=== PATIENT | male | born 1945 | race Caucasian/White ===

== ENCOUNTER 2017-04-23 10:30 | Inpatient (IN) | payer MEDICARE, OTHER, SELFPAY ==
[2017-04-23] VITALS (19 sets, daily range): BP systolic 112–138; BP diastolic 71–100; PULSE 75–118; RESP 14–22; TEMP 36.5–37.1; O2SAT 96–100; BMI 23.6; BMI 23.2; BMI 23.3
--- NOTE | 2017-04-23 10:52 | RAD_ITS ---
STUDY: X-RAY CHEST REASON FOR EXAM: Male, 71 years old. Fatigue. History of prior mitral valve replacement. TECHNIQUE: Single AP portable view of the chest. COMPARISON: None. FINDINGS: EKG electrodes are seen. The lungs are clear and expanded. There is no demonstrated pleural abnormality. Sternal cerclage wires are present from a prior sternotomy. Normal mediastinum and son. Normal visualized pulmonary arteries. Normal visualized aortic arch and descending thoracic aorta. There are degenerative changes of the visualized thoracic spine. Normal visualized ribs, clavicles, and shoulders. There is no demonstrated abnormality of the visualized soft tissue structures of the upper abdomen. RAD/Chest 1 View (Portable) IMPRESSION: Prior midline sternotomy and mitral valve replacement. Electronically Signed: Jermaine Murphy MD at 11:26 EST Tel [phone], Service support ,
--- NOTE | 2017-04-23 10:53 | EKG12_ITS ---
Test Reason : AM EKG Blood Pressure : / mmHG Vent. Rate : 088 BPM Atrial Rate : 394 BPM P-R Int : 000 ms QRS Dur : 100 ms QT Int : 368 ms P-R-T Axes : 000 098 064 degrees QTc Int : 445 ms Atrial fibrillation /flutter Septal CO, age undetermined, cannot be excluded Lateral CO, age undetermined, cannot be excluded Nonspecific ST abnormality Abnormal ECG Confirmed by TREVOR PEREZ, IAN ([id number]), editor newspaper GIGI DAS ([id number] on 05/01/2017 11:43:29 AM Referred By: Jackson Das Confirmed By:IAN MURRAY MD
[2017-04-23] MEDS: 0.9% Normal Saline 1,000 ML 150 ML IV (10:58)
[2017-04-23 11:04] LABS: Absolute Neutrophil Count 3.3 X10^3/uL (2.0-7.7); Basophil# 0.03 X10^3/uL; Basophil% 0.5 % (0-1); Eosinophil# 0.19 X10^3/uL; Eosinophils% 3.3 % (0-5); Hematocrit 45.3 % (40-54); Hemoglobin 14.9 g/dl (13.0-16.5); Lymphocyte % 32.8 % (19-41); Mean Corp Hgb Conc 32.9 g/gl (32-36); Mean Corpuscular Hgb 30.7 pg (27.0-32.0); Mean Corpuscular Volume 93.2 fL (80-94); Mean Platelet Vol. 8.8 fl (6.2-12.0); Monocyte# 0.41 X10^3/uL; Monocyte% 7.1 % (0-10); Neutrophil # 3.25 X10^3/uL (2.7-7.7); Neutrophil % 56.1 % (47-70); POSITIVE COUNT NO; POSITIVE DIFFERENTIAL NO; POSITIVE MORPHOLOGY NO; Platelet Count 242 K/mm3 (150-450); RBC Distribution Width CV 13.5 % (11.6-14.6); RBC Distribution Width SD 45.7 fl (35.1-43.9); Red Blood Count 4.86 M/mm3 (4.6-6.2); White Blood Count 5.8 K/mm3 (4.4-11.0)
[2017-04-23] MEDS: Adenosine 6 MG/2 ML Syringe IV (11:05)
[2017-04-23 11:15] LABS: International Normalized Ratio 1.1; Partial Thromboplast Time 27.7 Seconds (24.1-36.2); Prothrombin Time (Protime)PT. 13.7 SECONDS (11.7-14.9)
[2017-04-23 11:30] LABS: ALB/GLOB Ratio 1.3 RATIO (0.9-2.4); AST(SGOT) 25 U/L (15-37); Alanine Aminotransfer ALT/SGPT 43 U/L (12-78); Albumin, Serum 3.9 g/dL (3.4-5.0); Alkaline Phosphatase 109 U/L (45-117); Anion Gap 5 (5-15); BUN 15 mg/dL (7-18); BUN/Creat Ratio 18.2 RATIO (10-20); Calcium,Total 8.6 mg/dL (8.5-10.1); Chloride 107 mmol/L (98-107); Creatinine, Serum 0.82 mg/dL (0.70-1.30); EST Glomerular Filtration Rate 98 mL/min (>60); Est Glom Filt Rate - Afr Amer 119 mL/min (>60); Estimated Creatinine Clearance 82.26 ml/min; Globulin 2.9 g/dL (2.2-4.2); Glucose 115 mg/dL (70-110); Magnesium 2.2 mg/dL (1.6-2.6); Potassium 4.3 mmol/L (3.5-5.1); Protein, Total 6.8 g/dL (6.4-8.2); Sodium Level 143 mmol/L (136-145); Thyroid Stim Hormone (TSH) 1.71 uIU/mL (0.358-3.74)
[2017-04-23] MEDS: Heparin Injection 5,000 UNITS/ML Syringe 4500 UNITS IV (12:40)
[2017-04-23] MEDS: HEPARIN/D5w 25,000 UNITS 25,000 UNITS/250 ML IV.SOLN. 10 UNITS IV (12:42)
--- NOTE | 2017-04-23 12:54 | PCM.HP.STD ---
Problem List (1) History of mitral valve repair Status: Chronic (2) Dyslipidemia Status: Chronic (3) New onset atrial fibrillation Status: Acute (4) Arrhythmia, AV node Status: Chronic (5) Prostate cancer Status: Chronic Comment: On surveillance by Dr. Thomas History of Present Illness Date of Admission: 04/23/17 Chief Complaint: Fatigue with generalized weakness The patient is a 71 year old M with history of mitral valve repair; annuloplasty, hypertension, dyslipidemia and prostate cancer, very early stage on surveillance came to ER with generalized weakness, fatigue and mild shortness of breath on exertion for past 2-3 weeks. Patient saw his PCP, Dr. Das who found that patient has tachycardia on EKG and A. fib with RVR and sent to ER. Patient denies any history of A. fib but has been feeling clear sensation for last 2-3 weeks. Patient was started on verapamil about 10 years ago by [facility] employee relations representative Dr. Amberly Rouse for the reason patient is not clear but probably possible AV belinda arrhythmia. The patient baseline heart rate is 60/min. 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 Denies history of coronary artery disease, CHF or [place] in the past. He had mitral valve repair in [address] Winters in [facility]. ER physician, Dr. Mccall discussed with Dr. Borges and he advised amiodarone drip and heparin drip. [] Past Medical History Past Medical History (Chronic Problems): Chronic Problems History of mitral valve repair (Chronic) Dyslipidemia (Chronic) Arrhythmia, AV node (Chronic) Prostate cancer (Chronic) On surveillance by Dr. Thomas Allergies No Known Allergies Allergy (Verified 06/15/16 12:19) Home Medications: Ambulatory Orders Medication Instructions Recorded Aspirin [Aspirin, Baby] 81 mg PO DAILY@0800 10/06/13 Biotin [Alexi Biotin] 5,000 mcg PO DAILY 10/06/13 BuPROPion (XL) [Wellbutrin Xl] 300 mg PO DAILY 10/06/13 Fish Oil/Dha/Epa [Fish Oil 1,200 1 each PO BID 10/06/13 mg Fish Oil] Lorazepam [Ativan] 0.5 tab PO DAILY PRN PRN 10/06/13 Losartan Potassium [Losartan 50 mg PO DAILY 10/06/13 Potassium] Multivitamins,Therapeutic 1 tab PO DAILY 10/06/13 [Multivitamin] Atorvastatin Calcium [Lipitor] 40 mg PO QHS 09/21/14 verapamil ER (SR) 180 mg 180 mg PO DAILY #90 tab 03/12/17 tablet,extended release Smoking Status: Never smoker - *Family History Sibling History Items: - - His brother and sister has atrial fibrillation and had ablation. Review of Systems Constitutional: Denies: Chills, Fever, Weight Change HEENT: Denies: Head Aches, Sinus Congestion, Sinus Drainage Cardiovascular: Denies: Chest Pain, Palpitations Respiratory: Reports: Shortness of breath upon exertion. Denies: Cough, Shortness of breath at rest, Sputum production Gastrointestinal: Denies: Abdominal Pain, Nausea, Vomiting Genitourinary: Denies: Dysuria Musculoskeletal: Denies: Joint Pain, Joint Tenderness Skin: Denies: Rash, Wounds Neurological: Denies: Numbness, Tingling, Focal weakness Psychiatric: Denies: Anxiety, Depression, Homicidal Ideations, Suicidal Ideations Hematologic/ Lymphatic: Denies: Easy Bruising, Easy Bleeding VTE Information - Inpt Only VTE Present on Admission: No VTE Mechan Device Prophylaxis: None VTE Pharm Prophylaxis ordered?: Yes Reason prophylaxis not ordered:: Procedure Not Indicated - Patient is already on IV heparin drip for atrial fibrillation Patient Problems: Active and Suspected Problems New onset atrial fibrillation (Acute) - Physical Exam General: Alert, Oriented x3, Cooperative HEENT: Atraumatic, PERRLA, EOMI, Normocephalic Neck: Supple, No JVD, Negative Carotid Bruits Lungs: Clear to auscultation, Normal air movement, No rhonchi, No wheeze, No rales Cardiovascular: Normal S1, Normal S2, Irregular Rate, Murmur - Grade 2/6 systolic murmur over mitral area, Tachycardic Abdomen: Bowel Sounds Present, Soft, Non Tender, Non-Distended Extremities: No edema, Capillary Refill Less than 3 Seconds Skin: No rashes, No breakdown Musculoskeletal: No Tenderness to Palpation of Joints or Extremities, Arthritic Changes Neurological: Cranial nerves II-XII grossly intact Psych/Mental Status: Normal Affect, Appropriate Vital Signs Temp Pulse Resp BP Pulse Ox 97.8 F 118 H 18 124/91 H 99 04/23/17 10:31 04/23/17 10:31 04/23/17 10:31 04/23/17 10:31 04/23/17 10:31 Oxygen Delivery Method Room Air Weight: 155 lb Body Mass Index (BMI) 23.6 Laboratory Tests Past 24 Hrs 04/23/17 04/23/17 04/23/17 10:55 10:55 10:55 WBC 5.8 RBC 4.86 Hgb 14.9 Hct 45.3 MCV 93.2 MCH 30.7 MCHC 32.9 RDW 13.5 RDW Differential 45.7 H Plt Count 242 MPV 8.8 Immature Gran % (Auto) 0.200 Neut % (Auto) 56.1 Lymph % (Auto) 32.8 [place] % (Auto) 7.1 Eos % (Auto) 3.3 Baso % (Auto) 0.5 Absolute Neuts (auto) 3.3 Absolute Lymphs (auto) 1.90 Total Counted Not Reportable PT 13.7 INR 1.1 APTT 27.7 Sodium 143 Potassium 4.3 Chloride 107 Carbon Dioxide 31.0 Anion Gap 5 BUN 15 Creatinine 0.82 Estim Creat Clear Calc 82.26 Est GFR (MDRD) Af Amer 119 Est GFR (MDRD) Non-Af 98 BUN/Creatinine Ratio 18.2 Glucose 115 H Calcium 8.6 Magnesium 2.2 Total Bilirubin 0.70 AST 25 ALT 43 Alkaline Phosphatase 109 Troponin I < 0.02 Total Protein 6.8 Albumin 3.9 Globulin 2.9 Albumin/Globulin Ratio 1.3 TSH 1.71 Assessment/Plan Active and Suspected Problems New onset atrial fibrillation (Acute) [] The patient is a 71 year old M with history of mitral valve repair; annuloplasty, hypertension, dyslipidemia and prostate cancer, very early stage on surveillance came to ER with generalized weakness, fatigue and mild shortness of breath on exertion for past 2-3 weeks. Patient saw his PCP, Dr. Das who found that patient has tachycardia on EKG and A. fib with RVR and sent to ER. Patient denies any history of A. fib but has been feeling clear sensation for last 2-3 weeks. Patient was started on verapamil about 10 years ago by [facility] employee relations representative Dr. Amberly Rouse for the reason patient is not clear but probably possible AV belinda arrhythmia. The patient baseline heart rate is 60/min. 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 Denies history of coronary artery disease, CHF or [place] in the past. He had mitral valve repair in [address] Winters in [facility]. ER physician, Dr. Mccall discussed with Dr. Borges and he advised amiodarone drip and heparin drip. 1. New onset A. fib of unknown duration with RVR: Patient is being admitted on telemetry, PCU. Started on IV heparin drip and amiodarone drip after amiodarone 150 mg IV bolus and will continue it. Serial cardiac enzymes. TSH is normal. Echo in July 2016 shows normal LV size and systolic function, EF 60%. Normal right and left atria. Mitral valve shows focal mitral valve thickening, trivial eccentric MR with annuloplasty ring. Right ventricle reported normal. 2. 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 Continue verapamil. 3. Other chronic comorbidities include hypertension, dyslipidemia and prostate cancer, on surveillance: Home medication continued. DVT prophylaxis: Patient on heparin drip. Clinical Impression(s) from Imaging Studies Chest X-Ray 04/23/17 10:52 IMPRESSION: Prior midline sternotomy and mitral valve replacement. Laboratory Results 04/23/17 10:55: WBC 5.8, RBC 4.86, Hgb 14.9, Hct 45.3, MCV 93.2, MCH 30.7, MCHC 32.9, RDW 13.5, RDW Differential 45.7 H, Plt Count 242, MPV 8.8, Immature Gran % (Auto) 0.200, Neut % (Auto) 56.1, Lymph % (Auto) 32.8, [place] % (Auto) 7.1, Eos % (Auto) 3.3, Baso % (Auto) 0.5, Absolute Neuts (auto) 3.3, Absolute Lymphs (auto) 1.90, Total Counted Not Reportable 04/23/17 10:55: PT 13.7, INR 1.1, APTT 27.7 04/23/17 10:55: Sodium 143, Potassium 4.3, Chloride 107, Carbon Dioxide 31.0, Anion Gap 5, BUN 15, Creatinine 0.82, Estim Creat Clear Calc 82.26, Est GFR (MDRD) Af Amer 119, Est GFR (MDRD) Non-Af 98, BUN/Creatinine Ratio 18.2, Glucose 115 H, Calcium 8.6, Magnesium 2.2, Total Bilirubin 0.70, AST 25, ALT 43, Alkaline Phosphatase 109, Troponin I < 0.02, Total Protein 6.8, Albumin 3.9, Globulin 2.9, Albumin/Globulin Ratio 1.3, TSH 1.71 Code Visit Inpatient E&M: 68419 Init Hosp L2
--- NOTE | 2017-04-23 13:08 | HP.PCM_ITS ---
Problem List (1) History of mitral valve repair Status: Chronic (2) Dyslipidemia Status: Chronic (3) New onset atrial fibrillation Status: Acute (4) Arrhythmia, AV node Status: Chronic (5) Prostate cancer Status: Chronic Comment: On surveillance by Dr. Thomas History of Present Illness Date of Admission: 04/23/17 Chief Complaint: Fatigue with generalized weakness The patient is a 71 year old M with history of mitral valve repair; annuloplasty , hypertension, dyslipidemia and prostate cancer, very early stage on surveillance came to ER with generalized weakness, fatigue and mild shortness of breath on exertion for past 2-3 weeks. Patient saw his PCP, Dr. Das who found that patient has tachycardia on EKG and A. fib with RVR and sent to ER. Patient denies any history of A. fib but has been feeling clear sensation for last 2-3 weeks. Patient was started on verapamil about 10 years ago by [facility] sewer tapper Dr. Amberly Rouse for the reason patient is not clear but probably possible AV belinda arrhythmia. The patient baseline heart rate is 60/min. 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 Denies history of coronary artery disease, CHF or [place] in the past. He had mitral valve repair in [address] Winters in [facility]. ER physician, Dr. Mccall discussed with Dr. Borges and he advised amiodarone drip and heparin drip. [] Past Medical History Past Medical History (Chronic Problems): Chronic Problems History of mitral valve repair (Chronic) Dyslipidemia (Chronic) Arrhythmia, AV node (Chronic) Prostate cancer (Chronic) On surveillance by Dr. Thomas Allergies No Known Allergies Allergy (Verified 06/15/16 12:19) Home Medications: Ambulatory Orders Medication Instructions Recorded Aspirin [Aspirin, Baby] 81 mg PO DAILY@0800 10/06/13 Biotin [Alexi Biotin] 5,000 mcg PO DAILY 10/06/13 BuPROPion (XL) [Wellbutrin Xl] 300 mg PO DAILY 10/06/13 Fish Oil/Dha/Epa [Fish Oil 1,200 1 each PO BID 10/06/13 mg Fish Oil] Lorazepam [Ativan] 0.5 tab PO DAILY PRN PRN 10/06/13 Losartan Potassium [Losartan 50 mg PO DAILY 10/06/13 Potassium] Multivitamins,Therapeutic 1 tab PO DAILY 10/06/13 [Multivitamin] Atorvastatin Calcium [Lipitor] 40 mg PO QHS 09/21/14 verapamil ER (SR) 180 mg 180 mg PO DAILY #90 tab 03/12/17 tablet,extended release Smoking Status: Never smoker - *Family History Sibling History Items: - - His brother and sister has atrial fibrillation and had ablation. Review of Systems Constitutional: Denies: Chills, Fever, Weight Change HEENT: Denies: Head Aches, Sinus Congestion, Sinus Drainage Cardiovascular: Denies: Chest Pain, Palpitations Respiratory: Reports: Shortness of breath upon exertion. Denies: Cough, Shortness of breath at rest, Sputum production Gastrointestinal: Denies: Abdominal Pain, Nausea, Vomiting Genitourinary: Denies: Dysuria Musculoskeletal: Denies: Joint Pain, Joint Tenderness Skin: Denies: Rash, Wounds Neurological: Denies: Numbness, Tingling, Focal weakness Psychiatric: Denies: Anxiety, Depression, Homicidal Ideations, Suicidal Ideations Hematologic/ Lymphatic: Denies: Easy Bruising, Easy Bleeding VTE Information - Inpt Only VTE Present on Admission: No VTE Mechan Device Prophylaxis: None VTE Pharm Prophylaxis ordered?: Yes Reason prophylaxis not ordered:: Procedure Not Indicated - Patient is already on IV heparin drip for atrial fibrillation Patient Problems: Active and Suspected Problems New onset atrial fibrillation (Acute) - Physical Exam General: Alert, Oriented x3, Cooperative HEENT: Atraumatic, PERRLA, EOMI, Normocephalic Neck: Supple, No JVD, Negative Carotid Bruits Lungs: Clear to auscultation, Normal air movement, No rhonchi, No wheeze, No rales Cardiovascular: Normal S1, Normal S2, Irregular Rate, Murmur - Grade 2/6 systolic murmur over mitral area, Tachycardic Abdomen: Bowel Sounds Present, Soft, Non Tender, Non-Distended Extremities: No edema, Capillary Refill Less than 3 Seconds Skin: No rashes, No breakdown Musculoskeletal: No Tenderness to Palpation of Joints or Extremities, Arthritic Changes Neurological: Cranial nerves II-XII grossly intact Psych/Mental Status: Normal Affect, Appropriate Vital Signs Temp Pulse Resp BP Pulse Ox 97.8 F 118 H 18 124/91 H 99 04/23/17 10:31 04/23/17 10:31 04/23/17 10:31 04/23/17 10:31 04/23/17 10:31 Oxygen Delivery Method Room Air Weight: 155 lb Body Mass Index (BMI) 23.6 Laboratory Tests Past 24 Hrs 04/23/17 04/23/17 04/23/17 10:55 10:55 10:55 WBC 5.8 RBC 4.86 Hgb 14.9 Hct 45.3 MCV 93.2 MCH 30.7 MCHC 32.9 RDW 13.5 RDW Differential 45.7 H Plt Count 242 MPV 8.8 Immature Gran % (Auto) 0.200 Neut % (Auto) 56.1 Lymph % (Auto) 32.8 [place] % (Auto) 7.1 Eos % (Auto) 3.3 Baso % (Auto) 0.5 Absolute Neuts (auto) 3.3 Absolute Lymphs (auto) 1.90 Total Counted Not Reportable PT 13.7 INR 1.1 APTT 27.7 Sodium 143 Potassium 4.3 Chloride 107 Carbon Dioxide 31.0 Anion Gap 5 BUN 15 Creatinine 0.82 Estim Creat Clear Calc 82.26 Est GFR (MDRD) Af Amer 119 Est GFR (MDRD) Non-Af 98 BUN/Creatinine Ratio 18.2 Glucose 115 H Calcium 8.6 Magnesium 2.2 Total Bilirubin 0.70 AST 25 ALT 43 Alkaline Phosphatase 109 Troponin I < 0.02 Total Protein 6.8 Albumin 3.9 Globulin 2.9 Albumin/Globulin Ratio 1.3 TSH 1.71 Assessment/Plan Active and Suspected Problems New onset atrial fibrillation (Acute) [] The patient is a 71 year old M with history of mitral valve repair; annuloplasty , hypertension, dyslipidemia and prostate cancer, very early stage on surveillance came to ER with generalized weakness, fatigue and mild shortness of breath on exertion for past 2-3 weeks. Patient saw his PCP, Dr. Das who found that patient has tachycardia on EKG and A. fib with RVR and sent to ER. Patient denies any history of A. fib but has been feeling clear sensation for last 2-3 weeks. Patient was started on verapamil about 10 years ago by [facility] sewer tapper Dr. Amberly Rouse for the reason patient is not clear but probably possible AV belinda arrhythmia. The patient baseline heart rate is 60/min. 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 Denies history of coronary artery disease, CHF or [place] in the past. He had mitral valve repair in [address] Winters in [facility]. ER physician, Dr. Mccall discussed with Dr. Borges and he advised amiodarone drip and heparin drip. 1. New onset A. fib of unknown duration with RVR: Patient is being admitted on telemetry, PCU. Started on IV heparin drip and amiodarone drip after amiodarone 150 mg IV bolus and will continue it. Serial cardiac enzymes. TSH is normal. Echo in July 2016 shows normal LV size and systolic function, EF 60 %. Normal right and left atria. Mitral valve shows focal mitral valve thickening, trivial eccentric MR with annuloplasty ring. Right ventricle reported normal. 2. 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 Continue verapamil. 3. Other chronic comorbidities include hypertension, dyslipidemia and prostate cancer, on surveillance: Home medication continued. DVT prophylaxis: Patient on heparin drip. Clinical Impression(s) from Imaging Studies Chest X-Ray 04/23/17 10:52 IMPRESSION: Prior midline sternotomy and mitral valve replacement. Laboratory Results 04/23/17 10:55: WBC 5.8, RBC 4.86, Hgb 14.9, Hct 45.3, MCV 93.2, MCH 30.7, MCHC 32.9, RDW 13.5, RDW Differential 45.7 H, Plt Count 242, MPV 8.8, Immature Gran % (Auto) 0.200, Neut % (Auto) 56.1, Lymph % (Auto) 32.8, [place] % (Auto) 7.1, Eos % (Auto) 3.3, Baso % (Auto) 0.5, Absolute Neuts (auto) 3.3, Absolute Lymphs ( auto) 1.90, Total Counted Not Reportable 04/23/17 10:55: PT 13.7, INR 1.1, APTT 27.7 04/23/17 10:55: Sodium 143, Potassium 4.3, Chloride 107, Carbon Dioxide 31.0, Anion Gap 5, BUN 15, Creatinine 0.82, Estim Creat Clear Calc 82.26, Est GFR ( MDRD) Af Amer 119, Est GFR (MDRD) Non-Af 98, BUN/Creatinine Ratio 18.2, Glucose 115 H, Calcium 8.6, Magnesium 2.2, Total Bilirubin 0.70, AST 25, ALT 43, Alkaline Phosphatase 109, Troponin I < 0.02, Total Protein 6.8, Albumin 3.9, Globulin 2.9, Albumin/Globulin Ratio 1.3, TSH 1.71 Code Visit Inpatient E&M: 12026 Init Hosp L2
[2017-04-23] MEDS: 0.9% Normal Saline 1,000 ML 75 ML IV (14:49)
--- NOTE | 2017-04-23 15:27 | EKG12_ITS ---
Test Reason : Blood Pressure : / mmHG Vent. Rate : 117 BPM Atrial Rate : 117 BPM P-R Int : 222 ms QRS Dur : 090 ms QT Int : 340 ms P-R-T Axes : 000 098 125 degrees QTc Int : 474 ms Sinus tachycardia with 1st degree A-V block Lateral infarct , age undetermined Marked ST abnormality, possible inferior subendocardial injury Abnormal ECG Confirmed by JAI CAMPBELL ([id number]), loan expeditor GIGI DAS ([id number] on 04/25/2017 11:48:51 AM Referred By: Jackson Das Confirmed By:JAI CAMPBELL
--- NOTE | 2017-04-23 15:29 | PCM.CONS.C ---
Problem List (1) Atrial fibrillation and flutter Status: Acute (2) History of mitral valve repair Status: Chronic (3) CAD (coronary artery disease) Status: Chronic Qualifiers: Coronary Disease-Associated Artery/Lesion type: [place] artery [place] vs. transplanted heart: [place] heart Associated angina: without angina Qualified Code(s): I25.10 - Atherosclerotic heart disease of [place] coronary artery without angina pectoris (4) Dyslipidemia Status: Chronic (5) HTN (hypertension) Status: Chronic Reason for Consult Date of Consultation: 04/23/17 History of Present Illness: The patient is a 71 year old white male with a past cardiovascular history of underlying mitral valve disease status post mitral valve repair (remote), hyperlipidemia, and hypertension who presents for evaluation of atrial fibrillation/flutter. He states he has been feeling somewhat fatigued for the last 2-4 weeks. He has not necessarily had underlying chest discomfort suspicious for angina pectoris or respiratory related issues suspicious for CHF or pulmonary edema. There has been no near syncope or syncope. He states he seems to sense that something has been different with his heartbeat on and off. He presented for his routine primary care history and physical examination this day. He was found to be in an increased heart rate. An ECG was performed. He was noted to have what appeared to be concerns of an underlying atrial fibrillation/flutter rhythm with ventricular rates in excess of 100 bpm with poor R-wave progression and voltage criteria concerning for LVH and nonspecific ST segment change. He was advised to present to the emergency department for further evaluation. Upon further evaluation in the emergency department he was noted to have his aforementioned cardiac rate and rhythm. He did not receive a trial of adenosine 6 mg IV push ?1. This allowed his rate to slow where it was thought by the emergency department staff to be compatible with an underlying atrial flutter. He was subsequently placed on IV heparin and IV amiodarone. He was placed in the PCU for further evaluation. He states that he has not been having any orthopnea or PND or ongoing peripheral pitting edema. He has had no other acute symptoms that he is aware of. His believes that he may have obstructive sleep apnea. He states he was evaluated for this in the past and his findings were considered not definitive thus he was not treated. The present time he appears to be resting comfortably in no acute distress. [] Past Medical History Allergies/Adverse Reactions: Allergies No Known Allergies Allergy (Verified 06/15/16 12:19) Home Medications: Ambulatory Orders Medication Instructions Recorded Aspirin [Aspirin, Baby] 81 mg PO DAILY@0800 10/06/13 Biotin [Alexi Biotin] 5,000 mcg PO DAILY 10/06/13 BuPROPion (XL) [Wellbutrin Xl] 300 mg PO DAILY 10/06/13 Fish Oil/Dha/Epa [Fish Oil 1,200 1 each PO QHS 10/06/13 mg Fish Oil] Lorazepam [Ativan] 0.25 tab PO DAILY PRN PRN 10/06/13 Losartan Potassium [Losartan 25 mg PO DAILY 10/06/13 Potassium] Multivitamins,Therapeutic 1 tab PO DAILY 10/06/13 [Multivitamin] Atorvastatin Calcium [Lipitor] 40 mg PO QHS 09/21/14 verapamil ER (SR) 180 mg 180 mg PO DAILY #90 tab 03/12/17 tablet,extended release Past Medical History (Chronic Problems): Chronic Problems History of mitral valve repair (Chronic) Dyslipidemia (Chronic) Arrhythmia, AV node (Chronic) Prostate cancer (Chronic) On surveillance by Dr. 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 Lives: Spouse/ Significant Other Smoking Status: Never smoker Alcohol: None Drugs: None Review of Systems - Review of Systems General: Reports: Fatigue. Denies: Fever, Night Sweats Cardiovascular: Reports: Palpitations. Denies: Chest Discomfort, Shortness of Breath, Orthopnea, PND, Peripheral Edema, Lightheadedness, Dizziness, Near Syncope, Syncope Respiratory: Denies: Cough, Sputum Production, Hemoptysis Gastrointestinal: Denies: Hematemesis, Hematochezia, Melena Genitourinary: Denies: Dysuria, Hematuria Skin: Denies: Rash Subjectve: This is a 71-year-old white male who appears to be resting comfortably at the moment in no acute distress peer Objective: Vital Signs Temp Pulse Resp BP Pulse Ox 97.7 F L 114 H 18 120/97 H 100 04/23/17 14:30 04/23/17 14:58 04/23/17 14:30 04/23/17 14:30 04/23/17 14:30 Oxygen Delivery Method Room Air Weight: 153 lb 0.013 oz Body Mass Index (BMI) 23.2 General: Awake, Alert, Oriented x 3, Cooperative, No Acute Distress Neck: No JVD Lungs: Clear to auscultation Cardiovascular: Regular Rhythm, Normal S1, Normal S2 Vascular: No Carotid Bruits Abdomen: Bowel Sounds Present, Soft, Non Tender Extremities: No Cyanosis, No Clubbing, No edema Neurological: No Focal Motor or Sensory Deficit Rhythm: Atrial flutter EKG: Atrial flutter; lateral MN, age undetermined, cannot be excluded; nonspecific ST segment abnormality ECHO: 07/31/2016: Left ventricle: Normal with an LVEF of 60%; mitral valve with a stable annuloplasty ring with mild focal mitral valve thickening with trivial MR; mild TR Stress Test: 06/16/2008: Exercise tolerance test/nuclear imaging study: Findings suspicious for diaphragmatic attenuation and negative for stress-induced myocardial ischemia Cardiac Cath: 06/23/2008: Left ventricle normal with an LVEF 55%; LAD with proximal 10% stenosis; first diagonal branch with ostial 20-30% stenosis; LCx appears angiographically normal; RCA with proximal 10-20% stenosis; right AV groove with proximal 10-20% stenosis; right posterior lateral branch with ostial 10-20% stenosis; mitral valve with a normal-appearing mitral annuloplasty ring with trivial MR CT Surgery: 10/04/2000: [facility]: Mitral valve repair with quadrangular resection of the middle scallop of the posterior leaflet with plication internal oblique fascia of the annulus posteriorly and a 34 mm Singh Turner ring annuloplasty CXR: Preliminary evaluation: post open heart surgery changes; no acute cardiopulmonary disease appreciated; please see official report Assessment/Plan 1. Atrial flutter The patient presents with findings concerning for atrial fibrillation/flutter. At the moment he appears to be predominantly in flutter. The etiology is uncertain although it may be multifactorial. This may be related to a combination of his age, previous cardiovascular history with underlying mitral valve regurgitation and mitral valve repair, as well as consideration for noncardiovascular issues such as the possibility of obstructive sleep apnea, etc. At the present time he is being monitored. His initial cardiac enzymes are negative. His ECG has not demonstrated any acute ECG changes. He is being treated medically. This has included a combination of rate control with his underlying calcium channel antagonist, and attempt at rhythm control with IV amiodarone, and anticoagulation with IV heparin. If he does not have conversion to sinus rhythm then he may need to be considered for YURIDIA guided synchronized biphasic DC cardioversion. 2. Myxomatous mitral valve disease with mitral valve irritation status post mitral valve repair-2000 At the present time the patient appears to be stable with respect to his underlying mitral valve disease process based upon his examination and his most recent transthoracic echocardiogram. This can be reassessed as needed. He will need to continue [employer] antibiotic prophylaxis as deemed appropriate. 3. CAD The patient does have a history of CAD as noted above. Thus far he has had no acute symptoms. His initial cardiac enzymes are negative. His ECG is demonstrated no acute ECG changes. He will continue evaluation care as noted above. 4. Hyperlipidemia He can continue medical management and laboratory evaluation as needed. 5. Hypertension His blood pressures will be followed. His medications can be adjusted as needed. Comment: The above was discussed with the patient, his family members present, and the [facility] emergency department staff. This note was generated with [employer] dictation software. It may contain incorrect words, spelling, and punctuation that were not noted in checking the note before signing.
--- NOTE | 2017-04-23 15:35 | ED.VISSUMM ---
- ER Visit Summary Date of Service: 04/23/17 Chief Complaint: Fatigue and abnormal EKG History of Present Illness: The patient is a 71 M who states that for the past couple months he has had fatigue. He states it is not profound fatigue but he has noticed that it has been taking him longer to do normal tasks. 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 He notes that several years ago he had a mitral valve repair at [facility]. Since that time he has been following with Dr. Nelson. He states that he has had heart catheterization in the past and that those were negative. He went to see his primary care physician today who noted an abnormal EKG. Is concerning for atrial fibrillation with a rapid ventricular response. Patient denies any weight loss. He denies any muscle cramping. He is currently taking verapamil and losartan. Physical Examination: Afebrile heart rate 118 blood pressure 124/91 Gen: Well-nourished well-developed Head: Normocephalic atraumatic Eyes: Perrl EOMI ENT: TMs clear no rhinorrhea moist mucous membranes Neck: Supple no lymphadenopathy no JVD nontender CVS: Cardiac regular rate rhythm no murmurs normal S1-S2 Respiratory: No distress clear to auscultation bilaterally chest nontender Abdomen: Soft nontender nondistended normal bowel sounds no masses Back: Nontender Extremity: Nontender no edema Skin: Normal color no rash Neuro: alert orientated ?3 CN II-XII intact normal strength sensation reflexes gait cerebellar Psych: Normal affect normal mood Test Results: EKG shows a narrow complex tachycardia at a rate of 117. Basic blood work including TSH and magnesium negative. Troponin negative. Chest x-ray no acute. Emergency Department Course and Treatment: Patient received a 6 mg dose of adenosine which brought out flutter waves. Case was discussed with Dr. Borges. Patient was placed on a heparin drip as well as amiodarone bolus and drip. Her plan is admission into the hospital. Impression: 1. New onset atrial flutter This note was generated with [employer] dictation software. It may contain incorrect words, spelling, and punctuation that were not noted in review of the chart prior to signing ED Disposition - Plan for ED Patient: Disposition: Acute Care Hospital [facility] Chief Complaint: General Illness
--- NOTE | 2017-04-23 15:39 | ED.DCSUM_ITS ---
- ER Visit Summary Date of Service: 04/23/17 Chief Complaint: Fatigue and abnormal EKG History of Present Illness: The patient is a 71 M who states that for the past couple months he has had fatigue. He states it is not profound fatigue but he has noticed that it has been taking him longer to do normal tasks. 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 He notes that several years ago he had a mitral valve repair at [facility]. Since that time he has been following with Dr. Nelson. He states that he has had heart catheterization in the past and that those were negative. He went to see his primary care physician today who noted an abnormal EKG. Is concerning for atrial fibrillation with a rapid ventricular response. Patient denies any weight loss. He denies any muscle cramping. He is currently taking verapamil and losartan. Physical Examination: Afebrile heart rate 118 blood pressure 124/91 Gen: Well-nourished well-developed Head: Normocephalic atraumatic Eyes: Perrl EOMI ENT: TMs clear no rhinorrhea moist mucous membranes Neck: Supple no lymphadenopathy no JVD nontender CVS: Cardiac regular rate rhythm no murmurs normal S1-S2 Respiratory: No distress clear to auscultation bilaterally chest nontender Abdomen: Soft nontender nondistended normal bowel sounds no masses Back: Nontender Extremity: Nontender no edema Skin: Normal color no rash Neuro: alert orientated ?3 CN II-XII intact normal strength sensation reflexes gait cerebellar Psych: Normal affect normal mood Test Results: EKG shows a narrow complex tachycardia at a rate of 117. Basic blood work including TSH and magnesium negative. Troponin negative. Chest x- ray no acute. Emergency Department Course and Treatment: Patient received a 6 mg dose of adenosine which brought out flutter waves. Case was discussed with Dr. Borges. Patient was placed on a heparin drip as well as amiodarone bolus and drip. Her plan is admission into the hospital. Impression: 1. New onset atrial flutter This note was generated with [employer] dictation software. It may contain incorrect words, spelling, and punctuation that were not noted in review of the chart prior to signing ED Disposition - Plan for ED Patient: Disposition: Acute Care Hospital [facility] Chief Complaint: General Illness
[2017-04-23] MEDS: Digoxin 250 MCG/ML Ampul 500 MCG IV (16:24)
[2017-04-23 18:59] LABS: Partial Thromboplast Time 86.5 Seconds (24.1-36.2)
[2017-04-23] MEDS: Atorvastatin Calcium 40 MG Tablet PO (21:03)
[2017-04-24] VITALS (21 sets, daily range): BP systolic 95–141; BP diastolic 45–104; PULSE 39–111; RESP 14–19; TEMP 36.9–37.2; O2SAT 95–100; BMI 23.2
[2017-04-24 01:29] LABS: Partial Thromboplast Time 61.5 Seconds (24.1-36.2)
[2017-04-24] MEDS: 0.9% Normal Saline 1,000 ML 75 ML IV ×2 (03:59→16:54)
--- NOTE | 2017-04-24 05:55 | EKG12_ITS ---
Test Reason : POST CARDIOVERSION Blood Pressure : / mmHG Vent. Rate : 050 BPM Atrial Rate : 050 BPM P-R Int : 188 ms QRS Dur : 104 ms QT Int : 454 ms P-R-T Axes : 020 097 086 degrees QTc Int : 413 ms Sinus bradycardia with Premature atrial complexes Poor R wave progression Anteroseptal AL, age undetermined, cannot be excluded Lateral AL, age undetermined, cannot be excluded Confirmed by TREVOR PEREZ, IAN ([id number]), senior technical editor GIGI DAS ([id number] on 05/01/2017 11:34:32 AM Referred By: Jackson Das Confirmed By:IAN MURRAY MD
[2017-04-24 07:17] LABS: Absolute Lymphocyte Count 1.78 X10^3/ul (0.83-4.51); Absolute Neutrophil Count 5.1 X10^3/uL (2.0-7.7); Basophil# 0.03 X10^3/uL; Basophil% 0.4 % (0-1); Eosinophil# 0.22 X10^3/uL; Eosinophils% 2.9 % (0-5); Hemoglobin 13.5 g/dl (13.0-16.5); Lymphocyte # 1.78 X10^3/ul (4.0); Lymphocyte % 23.9 % (19-41); Mean Corp Hgb Conc 32.9 g/gl (32-36); Mean Corpuscular Hgb 30.6 pg (27.0-32.0); Mean Platelet Vol. 8.8 fl (6.2-12.0); Monocyte# 0.32 X10^3/uL; Monocyte% 4.3 % (0-10); Neutrophil % 68.4 % (47-70); Platelet Count 194 K/mm3 (150-450); RBC Distribution Width CV 13.3 % (11.6-14.6); RBC Distribution Width SD 45.5 fl (35.1-43.9); Red Blood Count 4.41 M/mm3 (4.6-6.2); White Blood Count 7.5 K/mm3 (4.4-11.0)
[2017-04-24 07:20] LABS: POSITIVE COUNT NO; POSITIVE DIFFERENTIAL NO; POSITIVE MORPHOLOGY NO
[2017-04-24 07:58] LABS: Partial Thromboplast Time 63.5 Seconds (24.1-36.2)
[2017-04-24 08:11] LABS: Cholesterol 100 mg/dL (200); High Density Lipoprotein 50 mg/dL; Triglycerides 53 mg/dL; Very Low Density Lipoprotein 11 mg/dL (5-40)
[2017-04-24] MEDS: Multivitamins,Therapeutic Tablet 1 TABLET PO (09:49)
[2017-04-24] MEDS: Losartan Potassium 50 MG Tablet PO (09:49)
[2017-04-24] MEDS: Aspirin 81 MG TAB.CHEW PO (09:49)
--- NOTE | 2017-04-24 09:53 | PCM.OP.BLANK ---
Operative Report Date of Procedure: 04/24/17 CONSCIOUS SEDATION REPORT DATE OF SERVICE: April 24, 2017 BRIEF HISTORY OF PRESENT ILLNESS: The patient is a 71-year-old male who initially presented to the hospital on April 23 with fatigue and generalized weakness. He was subsequently found to be in atrial flutter. He was seen by cardiology in consultation. A YURIDIA was performed on the morning of April 24 which revealed mild global LV systolic dysfunction with an ejection fraction of 45%. No thrombus was identified. The patient is currently anticoagulated on heparin. He denies a prior history of COPD or asthma. He does report having previously been evaluated by Dr. Frost for what sounds like position dependent sleep disordered breathing. However, he is not currently on any form of nocturnal PAP therapy. The patient denies any previous anesthetic complications. PHYSICAL EXAMINATION: VITAL SIGNS: Reviewed and were acceptable. GENERAL: The patient is a male, in no apparent distress, speaking in full sentences. HEENT: Normocephalic, atraumatic. Mucous membranes are moist and pink. Good mouth opening noted. Trachea is midline. Good neck mobility. CHEST: S1, S2 irregularly irregular. No murmurs, rubs or gallops were noted. LUNGS: Clear to auscultation bilaterally without appreciable wheezes, rales or rhonchi. ABDOMEN: Soft, nontender, nondistended. Positive bowel sounds. EXTREMITIES: There is no clubbing, cyanosis or edema. ASA Class: II DESCRIPTION OF PROCEDURE: After confirmation of informed consent, the patient's anesthesia plan was reviewed in detail. Propofol was chosen. Risks and benefits were reviewed and the patient agreed to proceed. At 0932, the patient was given 40 mg of propofol. Due to an inadequate level of sedation, the patient was given an additional 10 mg of propofol. In total, he received 50 mg of propofol for the procedure. After he achieved an appropriate level of sedation, he was given a 50 joule synchronized cardioversion by Dr. Borges at the bedside. This was successful in achieving normal sinus rhythm. The patient was monitored until 12 13, at which time he reached his baseline mental status and function. The patient tolerated the procedure well. COMPLICATIONS: None ESTIMATED BLOOD LOSS: None RECOMMENDATIONS: Okay to recover in usual fashion.
[2017-04-24] MEDS: Verapamil SR 180 MG CAPSULE PO (09:54)
--- NOTE | 2017-04-24 10:26 | EKG12_ITS ---
Test Reason : PRE CARDIOVERSION Blood Pressure : / mmHG Vent. Rate : 104 BPM Atrial Rate : 227 BPM P-R Int : 000 ms QRS Dur : 100 ms QT Int : 376 ms P-R-T Axes : 236 093 005 degrees QTc Int : 494 ms Atrial flutter with variable A-V block Nonspecific ST and T wave abnormality Abnormal ECG Confirmed by TREVOR PEREZ, IAN ([id number]), film or videotape editor GIGI DAS ([id number] on 05/01/2017 11:44:27 AM Referred By: Jackson Das Confirmed By:IAN MURRAY MD
--- NOTE | 2017-04-24 10:43 | OP.PCM_ITS ---
Problem List (1) Atrial fibrillation and flutter Status: Acute (2) History of mitral valve repair Status: Chronic (3) CAD (coronary artery disease) Status: Chronic Qualifiers: Coronary Disease-Associated Artery/Lesion type: [place] artery [place] vs. transplanted heart: [place] heart Associated angina: without angina Qualified Code(s): I25.10 - Atherosclerotic heart disease of [place] coronary artery without angina pectoris (4) Dyslipidemia Status: Chronic (5) HTN (hypertension) Status: Chronic Operative Report Date of Procedure: 04/24/17 Date: 04/24/2017 Procedure: Synchronized biphasic DC cardioversion Indications: Atrial flutter Consent: Per patient Premedications: Per Dr. Romero of pulmonology and critical care medicine: Propofol: 50 mg IV push total Procedure: Synchronized biphasic DC cardioversion: 50 J ?1: Result: Sinus rhythm Complications: No apparent complications This note was generated with [employer] software. It may contain incorrect words, spelling, and punctuation that were not noted in checking the note before signing.
--- NOTE | 2017-04-24 10:50 | PN.CARD_ITS ---
Subjectve: The patient is now status post YURIDIA guided synchronized biphasic DC cardioversion. He has returned to sinus rhythm. He appears to be without acute complaint or complication. Objective: Vital Signs Temp Pulse Resp BP Pulse Ox 98.5 F 56 L 15 105/72 98 04/24/17 10:00 04/24/17 10:00 04/24/17 10:00 04/24/17 10:00 04/24/17 10:00 Oxygen Delivery Method Room Air Weight: 153 lb 0.013 oz Body Mass Index (BMI) 23.2 Intake and Output for Last 24 Hours 04/22/17 04/23/17 04/24/17 23:59 23:59 23:59 Intake Total 904 / 904 1205 / 1205 Output Total 1300 / 1300 1150 / 1150 Balance -396 / -396 55 / 55 General: Awake, Alert, Oriented x 3, Cooperative, No Acute Distress Neck: No JVD Chest Wall: Midline Sternotomy Incision Lungs: Clear to auscultation Cardiovascular: Regular Rhythm, Normal S1, Normal S2 Abdomen: Bowel Sounds Present, Soft, Non Tender Extremities: No edema Neurological: No Focal Motor or Sensory Deficit 04/23/17 15:10: Troponin I < 0.02 04/23/17 18:34: Troponin I < 0.02 04/23/17 18:34: APTT 86.5 H 04/24/17 00:56: Troponin I < 0.02 04/24/17 00:56: APTT 61.5 H 04/24/17 07:00: WBC 7.5, RBC 4.41 L, Hgb 13.5, Hct 41.0, MCV 93.0, MCH 30.6, MCHC 32.9, RDW 13.3, RDW Differential 45.5 H, Plt Count 194, MPV 8.8, Immature Gran % (Auto) 0.100, Neut % (Auto) 68.4, Lymph % (Auto) 23.9, [place] % (Auto) 4.3 , Eos % (Auto) 2.9, Baso % (Auto) 0.4, Absolute Neuts (auto) 5.1, Total Counted Not Reportable 04/24/17 07:00: Triglycerides 53, Cholesterol 100, LDL Cholesterol 39, VLDL Cholesterol 11, HDL Cholesterol 50 04/24/17 07:00: APTT 63.5 H Rhythm: Sinus rhythm YURIDIA: Left ventricle: Mild global left ventricular systolic dysfunction; estimated LVEF of 45%; mild left atrial enlargement; no obvious left atrial appendage thrombus identified; stable appearing mitral valve annuloplasty ring with trivial transvalvular MR; mild TR; negative agitated saline contrast study for interatrial shunt; please see official report Assessment/Plan 1. Atrial flutter The patient presents with findings concerning for atrial fibrillation/flutter. He has undergone evaluation with cardiac enzymes which have been negative. His ECG demonstrated no new acute changes. He has undergone evaluation with transesophageal echocardiogram as noted above. His left ventricular systolic dysfunction was mildly depressed (in the setting of his atrial flutter). He is now status post YURIDIA guided synchronized biphasic DC cardioversion. At the present time he will continue to be monitored. He will continue medical therapy. His medications will be adjusted. This will include altering his calcium channel antagonist to a beta-michell. He will also be placed on antiarrhythmic therapy with amiodarone. He will continue with anticoagulant therapy was transitioned from IV heparin to a novel oral anticoagulant agent. He will need continued future follow-up of his underlying rate and rhythm. He may need to be considered for EP evaluation for possible EPS/RFA. Also, he will need future follow-up of his underlying left ventricular wall motion and systolic function. Hopefully this will improve with return to sinus rhythm. 2. 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 He has trivial transvalvular MR. He will continue AHA antibiotic prophylaxis as deemed appropriate. 3. CAD The patient does have a history of CAD as noted above. Thus far he has had no acute symptoms. His initial cardiac enzymes are negative. His ECG is demonstrated no acute ECG changes. He will continue evaluation care as noted above. 4. Hyperlipidemia He can continue medical management and laboratory evaluation as needed. 5. Hypertension His blood pressures will be followed. His medications can be adjusted as needed. Also, there is a concern as to whether or not he truly does have obstructive sleep apnea which could contribute to his atrial dysrhythmia and his hypertension. This was discussed with Dr. Romero of pulmonology and critical care medicine who participated in his DC cardioversion procedure. He is willing to evaluate the patient in the future with respect to this concern. Comment: The above was discussed with the patient and his family members present. This note was generated with [employer] software. It may contain incorrect words, spelling, and punctuation that were not noted in checking the note before signing.
[2017-04-24 13:18] LABS: Partial Thromboplast Time 67.2 Seconds (24.1-36.2)
[2017-04-24] MEDS: HEPARIN/D5w 25,000 UNITS 25,000 UNITS/250 ML IV.SOLN. 9 UNITS IV (14:05)
--- NOTE | 2017-04-24 14:13 | PCM.PN.HOSP ---
Patient Problems: Active and Suspected Problems New onset atrial fibrillation (Acute) Atrial fibrillation and flutter (Acute) Subjective: Patient had YURIDIA today and after that synchronized biphasic DC cardioversion. Patient was cardioverted 50 J and converted to normal sinus rhythm. Vitals/I&O's: Vital Signs Temp Pulse Resp BP Pulse Ox 98.5 F 58 L 15 105/72 98 04/24/17 10:00 04/24/17 11:09 04/24/17 10:00 04/24/17 10:00 04/24/17 11:30 Oxygen Delivery Method Room Air Weight: 153 lb 0.013 oz Body Mass Index (BMI) 23.2 Intake and Output for Last 24 Hours 04/22/17 04/23/17 04/24/17 23:59 23:59 23:59 Intake Total 904 / 904 1804 / 1804 Output Total 1300 / 1300 2175 / 2175 Balance -396 / -396 -371 / -371 General: Alert, Oriented x3, Cooperative HEENT: Atraumatic, PERRLA, EOMI, Normocephalic Neck: Supple, No JVD, Negative Carotid Bruits Lungs: Clear to auscultation, Normal air movement, No rhonchi, No wheeze, No rales Cardiovascular: Regular rate, Regular Rhythm, Normal S1, Normal S2, Murmur - Grade 2/6 systolic murmur over mitral area. Abdomen: Bowel Sounds Present, Soft, Non Tender, Non-Distended Extremities: No edema, Capillary Refill Less than 3 Seconds Skin: No rashes, No breakdown Musculoskeletal: No Tenderness to Palpation of Joints or Extremities Neurological: Cranial nerves II-XII grossly intact Psych/Mental Status: Normal Affect, Appropriate Laboratory Results 04/23/17 15:10: Troponin I < 0.02 04/23/17 18:34: Troponin I < 0.02 04/23/17 18:34: APTT 86.5 H 04/24/17 00:56: Troponin I < 0.02 04/24/17 00:56: APTT 61.5 H 04/24/17 07:00: WBC 7.5, RBC 4.41 L, Hgb 13.5, Hct 41.0, MCV 93.0, MCH 30.6, MCHC 32.9, RDW 13.3, RDW Differential 45.5 H, Plt Count 194, MPV 8.8, Immature Gran % (Auto) 0.100, Neut % (Auto) 68.4, Lymph % (Auto) 23.9, Pratt % (Auto) 4.3, Eos % (Auto) 2.9, Baso % (Auto) 0.4, Absolute Neuts (auto) 5.1, Absolute Lymphs (auto) 1.78, Total Counted Not Reportable 04/24/17 07:00: Triglycerides 53, Cholesterol 100, LDL Cholesterol 39, VLDL Cholesterol 11, HDL Cholesterol 50 04/24/17 07:00: APTT 63.5 H 04/24/17 13:00: APTT 67.2 H Current Medications Acetaminophen (Tylenol) 650 mg PO Q6H PRN PRN PRN Reason: Mild Pain (scale 0-3)/T>100.7 Al Hydroxide/Mg Hydroxide (Mylanta Ii) 30 ml PO Q6H PRN PRN PRN Reason: Gastric Burning Amiodarone HCl (Cordarone) 200 mg PO BID [facility] Apixaban (Eliquis) 5 mg PO BID [facility] Aspirin (Aspirin, Baby) 81 mg PO DAILY@0800 [facility] Last Admin: 04/24/17 09:49 Dose: 81 mg Atorvastatin Calcium (Lipitor) 40 mg PO QHS [facility] Last Admin: 04/23/17 21:03 Dose: 40 mg Bisacodyl (Dulcolax) 10 mg RECTAL DAILY PRN PRN PRN Reason: Constipation Bupropion HCl (Wellbutrin Xl) 300 mg PO DAILY [facility] Last Admin: 04/24/17 09:49 Dose: 300 mg Docusate Sodium (Colace) 200 mg PO BID PRN PRN PRN Reason: Constipation Heparin Sodium (Porcine) () 0 units IV UD PRN PRN Reason: Protocol Stop: 04/24/17 22:00 Sodium Chloride () 1,000 mls @ 75 mls/hr IV .[id number] [facility] Last Admin: 04/24/17 03:59 Dose: 75 mls/hr Sodium Chloride () 500 mls @ 15 mls/hr IV .[id number] [facility] PRN Reason: KVO Last Admin: 04/23/17 17:24 Dose: Not Given Sodium Chloride () 1,000 mls @ 15 mls/hr IV .Q48H [facility] PRN Reason: KVO Last Admin: 04/24/17 08:24 Dose: Not Given Heparin Sodium/Dextrose () 25,000 units in 250 mls @ 10 mls/hr IV .Q25H [facility]; As Directed PRN Reason: Protocol Stop: 04/24/17 22:00 Last Admin: 04/24/17 14:05 Dose: 9 mls/hr Lorazepam (Ativan) 0.25 mg PO DAILY PRN PRN PRN Reason: ANXIETY Losartan Potassium (Cozaar) 50 mg PO DAILY [facility] Last Admin: 04/24/17 09:49 Dose: 50 mg Metoprolol Tartrate (Lopressor (Beta Gideon)) 25 mg PO BID [facility] Multivitamins (Multivitamin) 1 tablet PO DAILYCM [facility] Last Admin: 04/24/17 09:49 Dose: 1 tablet Ondansetron HCl (Zofran) 4 mg IV Q8H PRN PRN PRN Reason: Nausea Oxycodone HCl (Oxyir) 5 mg PO Q4H PRN PRN PRN Reason: Moderate Pain (pain scale 4-5) Sodium Chloride () 5 - 30 ml IV UD PRN PRN Reason: SALINE FLUSH Assessment/Plan Active and Suspected Problems New onset atrial fibrillation (Acute) Atrial fibrillation and flutter (Acute) [] The patient is a 71 year old M with history of mitral valve repair; annuloplasty, hypertension, dyslipidemia and prostate cancer, very early stage on surveillance came to ER with generalized weakness, fatigue and mild shortness of breath on exertion for past 2-3 weeks. Patient saw his PCP, Dr. Das who found that patient has tachycardia on EKG and A. fib with RVR and sent to ER. Patient denies any history of A. fib but has been feeling clear sensation for last 2-3 weeks. Patient was started on verapamil about 10 years ago by [facility] osteopathic physician Dr. Amberly Rouse for the reason patient is not clear but probably possible AV belinda arrhythmia. The patient baseline heart rate is 60/min. 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 Denies history of coronary artery disease, CHF or [place] in the past. He had mitral valve repair in [address] Winters in [facility]. ER physician, Dr. Mccall discussed with Dr. Borges and he advised amiodarone drip and heparin drip. 1. New onset A. fib of unknown duration with RVR: Patient is being admitted on telemetry, PCU. Initially, started on IV heparin drip and amiodarone drip after amiodarone 150 mg IV bolus and will continue it. Serial cardiac enzymes are negative. TSH is normal. Echo in July 2016 shows normal LV size and systolic function, EF 60%. Normal right and left atria. Mitral valve shows focal mitral valve thickening, trivial eccentric MR with annuloplasty ring. Right ventricle reported normal. Patient had YURIDIA on 04/24/2017 and reported as left ventricular systolic function mildly depressed, EF 45%, mild LA enlargement, no obvious left atrial appendage thrombus. Mitral valve annuloplasty cream stable with trivial transvalvular MR. Mild TR. It was negative agitated saline test for interatrial shunt. Patient was cardioverted today. Currently in normal sinus rhythm. Currently on amiodarone drip. On oral anticoagulant agent, apixaban 5 mg p.o. twice daily. DC IV heparin drip. 2. 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 Continue verapamil. 3. Other chronic comorbidities include hypertension, dyslipidemia and prostate cancer, on surveillance: Home medication continued. DVT prophylaxis: Patient on heparin drip. Clinical Impression(s) from Imaging Studies Chest X-Ray 04/23/17 10:52 IMPRESSION: Prior midline sternotomy and mitral valve replacement. Laboratory Results 04/23/17 18:34: Troponin I < 0.02 04/23/17 18:34: APTT 86.5 H 04/24/17 00:56: Troponin I < 0.02 04/24/17 00:56: APTT 61.5 H 04/24/17 07:00: WBC 7.5, RBC 4.41 L, Hgb 13.5, Hct 41.0, MCV 93.0, MCH 30.6, MCHC 32.9, RDW 13.3, RDW Differential 45.5 H, Plt Count 194, MPV 8.8, Immature Gran % (Auto) 0.100, Neut % (Auto) 68.4, Lymph % (Auto) 23.9, Pratt % (Auto) 4.3, Eos % (Auto) 2.9, Baso % (Auto) 0.4, Absolute Neuts (auto) 5.1, Absolute Lymphs (auto) 1.78, Total Counted Not Reportable 04/24/17 07:00: Triglycerides 53, Cholesterol 100, LDL Cholesterol 39, VLDL Cholesterol 11, HDL Cholesterol 50 04/24/17 07:00: APTT 63.5 H 04/24/17 13:00: APTT 67.2 H Code Visit Inpatient E&M: 87291 Subs Hosp L2
--- NOTE | 2017-04-24 14:56 | CHAPLAIN ---
Type of Pastoral Visit _x__ Initial Visit ___ Follow-up Visit ___ On-call Visit ___ General Patient Visit ___ Spiritual Assessment ___ Family Conference ___ Bereavement ___ Rapid Response ___ Code Blue ___ Other (describe below) Pastoral Care Referral From ___ Patient _x__ Family ___ Nurse ___ Physician ___ Youth Corrections Officer ___ Feed Crusher ___ Other (describe below) Sacrament/Intervention _x__ Active listening ___ Anointing ___ Latter-Day ___ Bereavement ___ Communion ___ Renuka exploration ___ _x__ Life review _x__ Prayer ___ Reconciliation ___ Sacrament of Sick _x__ Supportive presence ___ Wedding ___ Other (describe below) Pastoral Comments 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
--- NOTE | 2017-04-24 14:59 | CASEMGMT ---
Face to Face with patient for initial transition planning/care coordination assessment. RN KEM introduced self and role at [facility], pt voices understanding and consents to assessment at this time. Pt sitting up in bed in no distress at this time. Pt A/O x4 at this time and answers all questions appropriately at this time. Care providers, pharmacy, and demographics verified. See attached link. Pt voices no further concerns/needs at this time. Advised pt to ask for CM if any further questions/concerns/needs arise, voice understanding. CM to follow for possible Eliquis script at discharge. PLAN: Home [place] [facility]
[2017-04-24] MEDS: Acetaminophen 325 MG Tablet 650 MG PO (18:47)
[2017-04-24] MEDS: APIXABAN 5 MG TABLET PO (21:07)
[2017-04-24] MEDS: Atorvastatin Calcium 40 MG Tablet PO (21:07)
[2017-04-24] MEDS: Ondansetron 4 MG/2 ML Vial IV (21:16)
[2017-04-24] MEDS: 0.9% NaCl Peripheral Flush Adult/Peds IV (21:16)
[2017-04-25] VITALS (12 sets, daily range): BP systolic 103–128; BP diastolic 61–73; PULSE 36–56; RESP 16; TEMP 36.6–37; O2SAT 96–98
[2017-04-25] MEDS: Acetaminophen 325 MG Tablet 650 MG PO ×2 (00:59→07:57)
[2017-04-25] MEDS: 0.9% Normal Saline 1,000 ML 75 ML IV ×2 (06:22→18:40)
[2017-04-25 06:44] LABS: Absolute Lymphocyte Count 1.52 X10^3/ul (0.83-4.51); Absolute Neutrophil Count 4.1 X10^3/uL (2.0-7.7); Basophil# 0.03 X10^3/uL; Basophil% 0.5 % (0-1); Eosinophil# 0.16 X10^3/uL; Eosinophils% 2.6 % (0-5); Hematocrit 39.4 % (40-54); Hemoglobin 12.8 g/dl (13.0-16.5); Lymphocyte # 1.52 X10^3/ul (4.0); Lymphocyte % 24.5 % (19-41); Mean Corp Hgb Conc 32.5 g/gl (32-36); Mean Corpuscular Hgb 30.4 pg (27.0-32.0); Mean Corpuscular Volume 93.6 fL (80-94); Mean Platelet Vol. 9.1 fl (6.2-12.0); Monocyte# 0.38 X10^3/uL; Monocyte% 6.1 % (0-10); Neutrophil % 66.1 % (47-70); Platelet Count 208 K/mm3 (150-450); RBC Distribution Width CV 13.7 % (11.6-14.6); RBC Distribution Width SD 46.4 fl (35.1-43.9); Red Blood Count 4.21 M/mm3 (4.6-6.2); White Blood Count 6.2 K/mm3 (4.4-11.0)
[2017-04-25 06:54] LABS: Anion Gap 5 (5-15); BUN 13 mg/dL (7-18); BUN/Creat Ratio 18.8 RATIO (10-20); Calcium,Total 8.1 mg/dL (8.5-10.1); Chloride 109 mmol/L (98-107); Creatinine, Serum 0.69 mg/dL (0.70-1.30); EST Glomerular Filtration Rate 120 mL/min (>60); Est Glom Filt Rate - Afr Amer 145 mL/min (>60); Estimated Creatinine Clearance 67.45 ml/min; Glucose 127 mg/dL (70-110); Potassium 4.3 mmol/L (3.5-5.1); Sodium Level 141 mmol/L (136-145)
[2017-04-25 07:03] LABS: POSITIVE COUNT NO; POSITIVE DIFFERENTIAL NO; POSITIVE MORPHOLOGY NO
[2017-04-25] MEDS: Aspirin 81 MG TAB.CHEW PO (07:57)
[2017-04-25] MEDS: Multivitamins,Therapeutic Tablet 1 TABLET PO (07:57)
[2017-04-25] MEDS: Metoprolol Tartrate 25 MG Tablet 12.5 MG PO (09:00)
[2017-04-25] MEDS: APIXABAN 5 MG TABLET PO ×2 (09:00→21:11)
[2017-04-25] MEDS: Losartan Potassium 50 MG Tablet PO (09:00)
--- NOTE | 2017-04-25 13:55 | EKG12_ITS ---
Test Reason : REPEAT Blood Pressure : / mmHG Vent. Rate : 043 BPM Atrial Rate : 043 BPM P-R Int : 182 ms QRS Dur : 092 ms QT Int : 504 ms P-R-T Axes : 059 092 091 degrees QTc Int : 425 ms Marked sinus bradycardia with sinus arrhythmia Septal infarct , age undetermined , cannot be excluded Abnormal ECG Confirmed by TREVOR PEREZ, IAN ([id number]), associate editor GIGI DAS ([id number] on 05/01/2017 11:20:41 AM Referred By: Jackson Das Confirmed By:IAN MURRAY MD
--- NOTE | 2017-04-25 15:21 | PCM.PN.HOSP ---
Patient Problems: Active and Suspected Problems New onset atrial fibrillation (Acute) Atrial fibrillation and flutter (Acute) Subjective: Seen and examined. Patient has bradycardia episode in the morning today. Her heart rate was in 110s yesterday morning and then dropped to 48 to low 35/min and the automated manufacturing instructor. Patient is intermittent sinus rhythm with junctional rhythm Vitals/I&O's: Vital Signs Temp Pulse Resp BP Pulse Ox 98.3 F 45 L 16 103/61 98 04/25/17 15:00 04/25/17 15:00 04/25/17 15:00 04/25/17 15:00 04/25/17 15:00 Oxygen Delivery Method Room Air Weight: 153 lb 0.013 oz Body Mass Index (BMI) 23.2 Intake and Output for Last 24 Hours 04/23/17 04/24/17 04/25/17 23:59 23:59 23:59 Intake Total 904 / 904 2597.8 / 2597.8 2168 / 2168 Output Total 1300 / 1300 2700 / 2700 1075 / 1075 Balance -396 / -396 -102.2 / -102.2 1093 / 1093 General: Alert, Oriented x3, Cooperative HEENT: Atraumatic, PERRLA, EOMI, Normocephalic Neck: Supple, No JVD, Negative Carotid Bruits Lungs: Clear to auscultation, Normal air movement, No rhonchi, No wheeze, No rales Cardiovascular: Normal S1, Normal S2, Murmur Abdomen: Bowel Sounds Present, Soft, Non Tender, Non-Distended Extremities: No edema, Capillary Refill Less than 3 Seconds Skin: No rashes, No breakdown Musculoskeletal: No Tenderness to Palpation of Joints or Extremities Neurological: Cranial nerves II-XII grossly intact Psych/Mental Status: Normal Affect, Appropriate Laboratory Results 04/25/17 05:50: WBC 6.2, RBC 4.21 L, Hgb 12.8 L, Hct 39.4 L, MCV 93.6, MCH 30.4, MCHC 32.5, RDW 13.7, RDW Differential 46.4 H, Plt Count 208, MPV 9.1, Immature Gran % (Auto) 0.200, Neut % (Auto) 66.1, Lymph % (Auto) 24.5, Campbell % (Auto) 6.1, Eos % (Auto) 2.6, Baso % (Auto) 0.5, Absolute Neuts (auto) 4.1, Absolute Lymphs (auto) 1.52, Total Counted Not Reportable 04/25/17 05:50: Sodium 141, Potassium 4.3, Chloride 109 H, Carbon Dioxide 27.0, Anion Gap 5, BUN 13, Creatinine 0.69 L, Estim Creat Clear Calc 67.45, Est GFR (MDRD) Af Amer 145, Est GFR (MDRD) Non-Af 120, BUN/Creatinine Ratio 18.8, Glucose 127 H, Calcium 8.1 L Current Medications Acetaminophen (Tylenol) 650 mg PO Q6H PRN PRN PRN Reason: Mild Pain (scale 0-3)/T>100.7 Last Admin: 04/25/17 07:57 Dose: 650 mg Al Hydroxide/Mg Hydroxide (Mylanta Ii) 30 ml PO Q6H PRN PRN PRN Reason: Gastric Burning Apixaban (Eliquis) 5 mg PO BID [facility] Last Admin: 04/25/17 09:00 Dose: 5 mg Aspirin (Aspirin, Baby) 81 mg PO DAILY@0800 [facility] Last Admin: 04/25/17 07:57 Dose: 81 mg Atorvastatin Calcium (Lipitor) 40 mg PO QHS [facility] Last Admin: 04/24/17 21:07 Dose: 40 mg Bisacodyl (Dulcolax) 10 mg RECTAL DAILY PRN PRN PRN Reason: Constipation Bupropion HCl (Wellbutrin Xl) 300 mg PO DAILY [facility] Last Admin: 04/25/17 09:00 Dose: 300 mg Docusate Sodium (Colace) 200 mg PO BID PRN PRN PRN Reason: Constipation Sodium Chloride () 1,000 mls @ 75 mls/hr IV .[id number] [facility] Last Admin: 04/25/17 06:22 Dose: 75 mls/hr Sodium Chloride () 500 mls @ 15 mls/hr IV .[id number] [facility] PRN Reason: KVO Last Admin: 04/25/17 02:25 Dose: Not Given Sodium Chloride () 1,000 mls @ 15 mls/hr IV .Q48H [facility] PRN Reason: KVO Last Admin: 04/24/17 08:24 Dose: Not Given Lorazepam (Ativan) 0.25 mg PO DAILY PRN PRN PRN Reason: ANXIETY Losartan Potassium (Cozaar) 50 mg PO DAILY [facility] Last Admin: 04/25/17 09:00 Dose: 50 mg Metoprolol Tartrate (Lopressor (Beta Gideon)) 12.5 mg PO BID [facility] Last Admin: 04/25/17 09:00 Dose: 12.5 mg Multivitamins (Multivitamin) 1 tablet PO DAILYCM [facility] Last Admin: 04/25/17 07:57 Dose: 1 tablet Ondansetron HCl (Zofran) 4 mg IV Q8H PRN PRN PRN Reason: Nausea Last Admin: 04/24/17 21:16 Dose: 4 mg Oxycodone HCl (Oxyir) 5 mg PO Q4H PRN PRN PRN Reason: Moderate Pain (pain scale 4-5) Sodium Chloride () 5 - 30 ml IV UD PRN PRN Reason: SALINE FLUSH Last Admin: 04/24/17 21:16 Dose: 10 ml Assessment/Plan Active and Suspected Problems New onset atrial fibrillation (Acute) Atrial fibrillation and flutter (Acute) [] The patient is a 71 year old M with history of mitral valve repair; annuloplasty, hypertension, dyslipidemia and prostate cancer, very early stage on surveillance came to ER with generalized weakness, fatigue and mild shortness of breath on exertion for past 2-3 weeks. Patient saw his PCP, Dr. Das who found that patient has tachycardia on EKG and A. fib with RVR and sent to ER. Patient denies any history of A. fib but has been feeling clear sensation for last 2-3 weeks. Patient was started on verapamil about 10 years ago by [facility] engineering technical specialist Dr. Amberly Rouse for the reason patient is not clear but probably possible AV belinda arrhythmia. The patient baseline heart rate is 60/min. 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 Denies history of coronary artery disease, CHF or [place] in the past. He had mitral valve repair in [address] Winters in [facility]. ER physician, Dr. Mccall discussed with Dr. Borges and he advised amiodarone drip and heparin drip. 1. New onset A. fib of unknown duration with RVR: Patient is being admitted on telemetry, PCU. Initially, started on IV heparin drip and amiodarone drip after amiodarone 150 mg IV bolus and will continue it. Serial cardiac enzymes are negative. TSH is normal. Echo in July 2016 shows normal LV size and systolic function, EF 60%. Normal right and left atria. Mitral valve shows focal mitral valve thickening, trivial eccentric MR with annuloplasty ring. Right ventricle reported normal. Patient had YURIDIA on 04/24/2017 and reported as left ventricular systolic function mildly depressed, EF 45%, mild LA enlargement, no obvious left atrial appendage thrombus. Mitral valve annuloplasty cream stable with trivial transvalvular MR. Mild TR. It was negative agitated saline test for interatrial shunt. Patient was cardioverted on 04/24/2017. Initially, patient was started on IV amiodarone and then converted to oral amiodarone and then discontinued as the patient is having junctional/sinus bradycardia. Apixaban 5 mg p.o. twice daily. DC IV heparin drip. 2. Sinus/junctional severe bradycardia: On the automated manufacturing instructor, P-wave is not discernible so possible junctional bradycardia. Rate in 30-40/min. Patient does not have symptoms. Hold AV belinda inhibitors including verapamil, amiodarone 2. 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 As mentioned above 3. Other chronic comorbidities include hypertension, dyslipidemia and prostate cancer, on surveillance: Home medication continued. DVT prophylaxis: Patient on heparin drip. Clinical Impression(s) from Imaging Studies Chest X-Ray 04/23/17 10:52 IMPRESSION: Prior midline sternotomy and mitral valve replacement. Laboratory Results 04/25/17 05:50: WBC 6.2, RBC 4.21 L, Hgb 12.8 L, Hct 39.4 L, MCV 93.6, MCH 30.4, MCHC 32.5, RDW 13.7, RDW Differential 46.4 H, Plt Count 208, MPV 9.1, Immature Gran % (Auto) 0.200, Neut % (Auto) 66.1, Lymph % (Auto) 24.5, Campbell % (Auto) 6.1, Eos % (Auto) 2.6, Baso % (Auto) 0.5, Absolute Neuts (auto) 4.1, Absolute Lymphs (auto) 1.52, Total Counted Not Reportable 04/25/17 05:50: Sodium 141, Potassium 4.3, Chloride 109 H, Carbon Dioxide 27.0, Anion Gap 5, BUN 13, Creatinine 0.69 L, Estim Creat Clear Calc 67.45, Est GFR (MDRD) Af Amer 145, Est GFR (MDRD) Non-Af 120, BUN/Creatinine Ratio 18.8, Glucose 127 H, Calcium 8.1 L Code Visit Inpatient E&M: 10477 Subs Hosp L2
--- NOTE | 2017-04-25 15:28 | PN_ITS ---
Patient Problems: Active and Suspected Problems New onset atrial fibrillation (Acute) Atrial fibrillation and flutter (Acute) Subjective: Seen and examined. Patient has bradycardia episode in the morning today. Her heart rate was in 110s yesterday morning and then dropped to 48 to low 35/min and the membership coordinator. Patient is intermittent sinus rhythm with junctional rhythm Vitals/I&O's: Vital Signs Temp Pulse Resp BP Pulse Ox 98.3 F 45 L 16 103/61 98 04/25/17 15:00 04/25/17 15:00 04/25/17 15:00 04/25/17 15:00 04/25/17 15:00 Oxygen Delivery Method Room Air Weight: 153 lb 0.013 oz Body Mass Index (BMI) 23.2 Intake and Output for Last 24 Hours 04/23/17 04/24/17 04/25/17 23:59 23:59 23:59 Intake Total 904 / 904 2597.8 / 2597.8 2168 / 2168 Output Total 1300 / 1300 2700 / 2700 1075 / 1075 Balance -396 / -396 -102.2 / -102.2 1093 / 1093 General: Alert, Oriented x3, Cooperative HEENT: Atraumatic, PERRLA, EOMI, Normocephalic Neck: Supple, No JVD, Negative Carotid Bruits Lungs: Clear to auscultation, Normal air movement, No rhonchi, No wheeze, No rales Cardiovascular: Normal S1, Normal S2, Murmur Abdomen: Bowel Sounds Present, Soft, Non Tender, Non-Distended Extremities: No edema, Capillary Refill Less than 3 Seconds Skin: No rashes, No breakdown Musculoskeletal: No Tenderness to Palpation of Joints or Extremities Neurological: Cranial nerves II-XII grossly intact Psych/Mental Status: Normal Affect, Appropriate Laboratory Results 04/25/17 05:50: WBC 6.2, RBC 4.21 L, Hgb 12.8 L, Hct 39.4 L, MCV 93.6, MCH 30.4 , MCHC 32.5, RDW 13.7, RDW Differential 46.4 H, Plt Count 208, MPV 9.1, Immature Gran % (Auto) 0.200, Neut % (Auto) 66.1, Lymph % (Auto) 24.5, [place] % ( Auto) 6.1, Eos % (Auto) 2.6, Baso % (Auto) 0.5, Absolute Neuts (auto) 4.1, Absolute Lymphs (auto) 1.52, Total Counted Not Reportable 04/25/17 05:50: Sodium 141, Potassium 4.3, Chloride 109 H, Carbon Dioxide 27.0, Anion Gap 5, BUN 13, Creatinine 0.69 L, Estim Creat Clear Calc 67.45, Est GFR ( MDRD) Af Amer 145, Est GFR (MDRD) Non-Af 120, BUN/Creatinine Ratio 18.8, Glucose 127 H, Calcium 8.1 L Current Medications Acetaminophen (Tylenol) 650 mg PO Q6H PRN PRN PRN Reason: Mild Pain (scale 0-3)/T>100.7 Last Admin: 04/25/17 07:57 Dose: 650 mg Al Hydroxide/Mg Hydroxide (Mylanta Ii) 30 ml PO Q6H PRN PRN PRN Reason: Gastric Burning Apixaban (Eliquis) 5 mg PO BID [facility] Last Admin: 04/25/17 09:00 Dose: 5 mg Aspirin (Aspirin, Baby) 81 mg PO DAILY@0800 [facility] Last Admin: 04/25/17 07:57 Dose: 81 mg Atorvastatin Calcium (Lipitor) 40 mg PO QHS [facility] Last Admin: 04/24/17 21:07 Dose: 40 mg Bisacodyl (Dulcolax) 10 mg RECTAL DAILY PRN PRN PRN Reason: Constipation Bupropion HCl (Wellbutrin Xl) 300 mg PO DAILY [facility] Last Admin: 04/25/17 09:00 Dose: 300 mg Docusate Sodium (Colace) 200 mg PO BID PRN PRN PRN Reason: Constipation Sodium Chloride () 1,000 mls @ 75 mls/hr IV .[id number] [facility] Last Admin: 04/25/17 06:22 Dose: 75 mls/hr Sodium Chloride () 500 mls @ 15 mls/hr IV .[id number] [facility] PRN Reason: KVO Last Admin: 04/25/17 02:25 Dose: Not Given Sodium Chloride () 1,000 mls @ 15 mls/hr IV .Q48H [facility] PRN Reason: KVO Last Admin: 04/24/17 08:24 Dose: Not Given Lorazepam (Ativan) 0.25 mg PO DAILY PRN PRN PRN Reason: ANXIETY Losartan Potassium (Cozaar) 50 mg PO DAILY [facility] Last Admin: 04/25/17 09:00 Dose: 50 mg Metoprolol Tartrate (Lopressor (Beta Gideon)) 12.5 mg PO BID [facility] Last Admin: 04/25/17 09:00 Dose: 12.5 mg Multivitamins (Multivitamin) 1 tablet PO DAILYCM [facility] Last Admin: 04/25/17 07:57 Dose: 1 tablet Ondansetron HCl (Zofran) 4 mg IV Q8H PRN PRN PRN Reason: Nausea Last Admin: 04/24/17 21:16 Dose: 4 mg Oxycodone HCl (Oxyir) 5 mg PO Q4H PRN PRN PRN Reason: Moderate Pain (pain scale 4-5) Sodium Chloride () 5 - 30 ml IV UD PRN PRN Reason: SALINE FLUSH Last Admin: 04/24/17 21:16 Dose: 10 ml Assessment/Plan Active and Suspected Problems New onset atrial fibrillation (Acute) Atrial fibrillation and flutter (Acute) [] The patient is a 71 year old M with history of mitral valve repair; annuloplasty , hypertension, dyslipidemia and prostate cancer, very early stage on surveillance came to ER with generalized weakness, fatigue and mild shortness of breath on exertion for past 2-3 weeks. Patient saw his PCP, Dr. Das who found that patient has tachycardia on EKG and A. fib with RVR and sent to ER. Patient denies any history of A. fib but has been feeling clear sensation for last 2-3 weeks. Patient was started on verapamil about 10 years ago by [facility] pulverizer operator Dr. Amberly Rouse for the reason patient is not clear but probably possible AV belinda arrhythmia. The patient baseline heart rate is 60/min. 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 Denies history of coronary artery disease, CHF or [place] in the past. He had mitral valve repair in [address] Winters in [facility]. ER physician, Dr. Mccall discussed with Dr. Borges and he advised amiodarone drip and heparin drip. 1. New onset A. fib of unknown duration with RVR: Patient is being admitted on telemetry, PCU. Initially, started on IV heparin drip and amiodarone drip after amiodarone 150 mg IV bolus and will continue it. Serial cardiac enzymes are negative. TSH is normal. Echo in July 2016 shows normal LV size and systolic function, EF 60%. Normal right and left atria. Mitral valve shows focal mitral valve thickening, trivial eccentric MR with annuloplasty ring. Right ventricle reported normal. Patient had YURIDIA on 04/24/2017 and reported as left ventricular systolic function mildly depressed, EF 45%, mild LA enlargement , no obvious left atrial appendage thrombus. Mitral valve annuloplasty cream stable with trivial transvalvular MR. Mild TR. It was negative agitated saline test for interatrial shunt. Patient was cardioverted on 04/24/2017. Initially, patient was started on IV amiodarone and then converted to oral amiodarone and then discontinued as the patient is having junctional/sinus bradycardia. Apixaban 5 mg p.o. twice daily. DC IV heparin drip. 2. Sinus/junctional severe bradycardia: On the membership coordinator, P-wave is not discernible so possible junctional bradycardia. Rate in 30-40/min. Patient does not have symptoms. Hold AV belinda inhibitors including verapamil, amiodarone 2. 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 As mentioned above 3. Other chronic comorbidities include hypertension, dyslipidemia and prostate cancer, on surveillance: Home medication continued. DVT prophylaxis: Patient on heparin drip. Clinical Impression(s) from Imaging Studies Chest X-Ray 04/23/17 10:52 IMPRESSION: Prior midline sternotomy and mitral valve replacement. Laboratory Results 04/25/17 05:50: WBC 6.2, RBC 4.21 L, Hgb 12.8 L, Hct 39.4 L, MCV 93.6, MCH 30.4 , MCHC 32.5, RDW 13.7, RDW Differential 46.4 H, Plt Count 208, MPV 9.1, Immature Gran % (Auto) 0.200, Neut % (Auto) 66.1, Lymph % (Auto) 24.5, [place] % ( Auto) 6.1, Eos % (Auto) 2.6, Baso % (Auto) 0.5, Absolute Neuts (auto) 4.1, Absolute Lymphs (auto) 1.52, Total Counted Not Reportable 04/25/17 05:50: Sodium 141, Potassium 4.3, Chloride 109 H, Carbon Dioxide 27.0, Anion Gap 5, BUN 13, Creatinine 0.69 L, Estim Creat Clear Calc 67.45, Est GFR ( MDRD) Af Amer 145, Est GFR (MDRD) Non-Af 120, BUN/Creatinine Ratio 18.8, Glucose 127 H, Calcium 8.1 L Code Visit Inpatient E&M: 26965 Subs Hosp L2
--- NOTE | 2017-04-25 18:51 | PCM.PN.CARD ---
Subjectve: The patient is awake and alert. He denies any ongoing chest discomfort or difficulty breathing at this time. He also denies any palpitations, near syncope, or syncope. He has been up and ambulating in his room but not in the hallway. Objective: Vital Signs Temp Pulse Resp BP Pulse Ox 98.3 F 44 L 16 103/61 98 04/25/17 15:00 04/25/17 15:04 04/25/17 15:00 04/25/17 15:00 04/25/17 15:00 Oxygen Delivery Method Room Air Weight: 153 lb 0.013 oz Body Mass Index (BMI) 23.2 Intake and Output for Last 24 Hours 04/23/17 04/24/17 04/25/17 23:59 23:59 23:59 Intake Total 904 / 904 2597.8 / 2597.8 2831 / 2831 Output Total 1300 / 1300 2700 / 2700 1075 / 1075 Balance -396 / -396 -102.2 / -102.2 1756 / 1756 General: Awake, Alert, Oriented x 3, Cooperative, No Acute Distress Neck: No JVD Lungs: Clear to auscultation Cardiovascular: Regular Rhythm, Premature Ectopic Beats, Normal S1, Normal S2 Abdomen: Bowel Sounds Present, Soft, Non Tender Extremities: No Cyanosis, No Clubbing, No edema Neurological: No Focal Motor or Sensory Deficit 04/25/17 05:50: WBC 6.2, RBC 4.21 L, Hgb 12.8 L, Hct 39.4 L, MCV 93.6, MCH 30.4, MCHC 32.5, RDW 13.7, RDW Differential 46.4 H, Plt Count 208, MPV 9.1, Immature Gran % (Auto) 0.200, Neut % (Auto) 66.1, Lymph % (Auto) 24.5, [place] % (Auto) 6.1, Eos % (Auto) 2.6, Baso % (Auto) 0.5, Absolute Neuts (auto) 4.1, Total Counted Not Reportable 04/25/17 05:50: Sodium 141, Potassium 4.3, Chloride 109 H, Carbon Dioxide 27.0, Anion Gap 5, BUN 13, Creatinine 0.69 L, Est GFR (MDRD) Af Amer 145, Est GFR (MDRD) Non-Af 120, BUN/Creatinine Ratio 18.8, Glucose 127 H, Calcium 8.1 L Rhythm: Sinus rhythm; marked sinus bradycardia; ectopic atrial bradycardia; transient junctional rhythm; intermittent irregular narrow complex tachycardia dysrhythmias potentially compatible with paroxysmal atrial fibrillation EKG: Marked sinus versus ectopic atrial bradycardia with septal [place] of indeterminate age cannot be excluded Assessment/Plan 1. Atrial flutter/paroxysmal atrial fibrillation/bradycardia The patient presents with findings concerning for atrial fibrillation/flutter. He is now status post YURIDIA guided synchronized biphasic DC cardioversion. He has been monitored. He has demonstrated brief episodes appearing compatible with a paroxysmal atrial fibrillation. He is also demonstrated predominantly a marked bradycardia compatible with marked sinus bradycardia versus ectopic atrial bradycardia as well as episodes appearing compatible with transient junctional rhythm. He has not received his verapamil therapy. He has not received any additional amiodarone therapy after his IV amiodarone was discontinued. He has received 1 dose of low dose beta-michell/metoprolol therapy. Based upon his aforementioned findings there are concern as to whether he is demonstrating evidence compatible with an underlying bradycardia tachycardia syndrome or sick sinus syndrome. At the present time he will continue to be monitored. He is not receiving any type of rate limiting medication or antiarrhythmic therapy at this time. He was asked to be up and about and ambulate to monitor his heart rate response. Depending upon his findings he may need future evaluation for the possibility of bradycardia tachycardia syndrome or sick sinus syndrome with respect to the need for possible permanent pacemaker support to support underlying bradycardia dysrhythmias and allow medications to be used for tachydysrhythmias. 2. 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 He has trivial transvalvular MR. He will continue AHA antibiotic prophylaxis as deemed appropriate. 3. CAD The patient does have a history of CAD as noted above. Thus far he has had no acute symptoms. His initial cardiac enzymes are negative. His ECG is demonstrated no acute ECG changes. He will continue evaluation care as noted above. 4. Hyperlipidemia He can continue medical management and laboratory evaluation as needed. 5. Hypertension His blood pressures will be followed. His medications can be adjusted as needed. Also, there is a concern as to whether or not he truly does have obstructive sleep apnea which could contribute to his atrial dysrhythmia and his hypertension. This was discussed with Dr. Romero of pulmonology and critical care medicine who participated in his DC cardioversion procedure. He is willing to evaluate the patient in the future with respect to this concern. Comment: The above was discussed with the patient and his spouse. They were agreeable to this approach. This note was generated with [employer] software. It may contain incorrect words, spelling, and punctuation that were not noted in checking the note before signing.
--- NOTE | 2017-04-25 18:56 | PN.CARD_ITS ---
Subjectve: The patient is awake and alert. He denies any ongoing chest discomfort or difficulty breathing at this time. He also denies any palpitations, near syncope, or syncope. He has been up and ambulating in his room but not in the hallway. Objective: Vital Signs Temp Pulse Resp BP Pulse Ox 98.3 F 44 L 16 103/61 98 04/25/17 15:00 04/25/17 15:04 04/25/17 15:00 04/25/17 15:00 04/25/17 15:00 Oxygen Delivery Method Room Air Weight: 153 lb 0.013 oz Body Mass Index (BMI) 23.2 Intake and Output for Last 24 Hours 04/23/17 04/24/17 04/25/17 23:59 23:59 23:59 Intake Total 904 / 904 2597.8 / 2597.8 2831 / 2831 Output Total 1300 / 1300 2700 / 2700 1075 / 1075 Balance -396 / -396 -102.2 / -102.2 1756 / 1756 General: Awake, Alert, Oriented x 3, Cooperative, No Acute Distress Neck: No JVD Lungs: Clear to auscultation Cardiovascular: Regular Rhythm, Premature Ectopic Beats, Normal S1, Normal S2 Abdomen: Bowel Sounds Present, Soft, Non Tender Extremities: No Cyanosis, No Clubbing, No edema Neurological: No Focal Motor or Sensory Deficit 04/25/17 05:50: WBC 6.2, RBC 4.21 L, Hgb 12.8 L, Hct 39.4 L, MCV 93.6, MCH 30.4 , MCHC 32.5, RDW 13.7, RDW Differential 46.4 H, Plt Count 208, MPV 9.1, Immature Gran % (Auto) 0.200, Neut % (Auto) 66.1, Lymph % (Auto) 24.5, [place] % ( Auto) 6.1, Eos % (Auto) 2.6, Baso % (Auto) 0.5, Absolute Neuts (auto) 4.1, Total Counted Not Reportable 04/25/17 05:50: Sodium 141, Potassium 4.3, Chloride 109 H, Carbon Dioxide 27.0, Anion Gap 5, BUN 13, Creatinine 0.69 L, Est GFR (MDRD) Af Amer 145, Est GFR ( MDRD) Non-Af 120, BUN/Creatinine Ratio 18.8, Glucose 127 H, Calcium 8.1 L Rhythm: Sinus rhythm; marked sinus bradycardia; ectopic atrial bradycardia; transient junctional rhythm; intermittent irregular narrow complex tachycardia dysrhythmias potentially compatible with paroxysmal atrial fibrillation EKG: Marked sinus versus ectopic atrial bradycardia with septal [place] of indeterminate age cannot be excluded Assessment/Plan 1. Atrial flutter/paroxysmal atrial fibrillation/bradycardia The patient presents with findings concerning for atrial fibrillation/flutter. He is now status post YURIDIA guided synchronized biphasic DC cardioversion. He has been monitored. He has demonstrated brief episodes appearing compatible with a paroxysmal atrial fibrillation. He is also demonstrated predominantly a marked bradycardia compatible with marked sinus bradycardia versus ectopic atrial bradycardia as well as episodes appearing compatible with transient junctional rhythm. He has not received his verapamil therapy. He has not received any additional amiodarone therapy after his IV amiodarone was discontinued. He has received 1 dose of low dose beta-michell/metoprolol therapy. Based upon his aforementioned findings there are concern as to whether he is demonstrating evidence compatible with an underlying bradycardia tachycardia syndrome or sick sinus syndrome. At the present time he will continue to be monitored. He is not receiving any type of rate limiting medication or antiarrhythmic therapy at this time. He was asked to be up and about and ambulate to monitor his heart rate response. Depending upon his findings he may need future evaluation for the possibility of bradycardia tachycardia syndrome or sick sinus syndrome with respect to the need for possible permanent pacemaker support to support underlying bradycardia dysrhythmias and allow medications to be used for tachydysrhythmias. 2. 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 He has trivial transvalvular MR. He will continue AHA antibiotic prophylaxis as deemed appropriate. 3. CAD The patient does have a history of CAD as noted above. Thus far he has had no acute symptoms. His initial cardiac enzymes are negative. His ECG is demonstrated no acute ECG changes. He will continue evaluation care as noted above. 4. Hyperlipidemia He can continue medical management and laboratory evaluation as needed. 5. Hypertension His blood pressures will be followed. His medications can be adjusted as needed. Also, there is a concern as to whether or not he truly does have obstructive sleep apnea which could contribute to his atrial dysrhythmia and his hypertension. This was discussed with Dr. Romero of pulmonology and critical care medicine who participated in his DC cardioversion procedure. He is willing to evaluate the patient in the future with respect to this concern. Comment: The above was discussed with the patient and his spouse. They were agreeable to this approach. This note was generated with [employer] software. It may contain incorrect words, spelling, and punctuation that were not noted in checking the note before signing.
[2017-04-25] MEDS: Atorvastatin Calcium 40 MG Tablet PO (21:11)
[2017-04-26 03:01] VITALS: PULSE 61
[2017-04-26 03:04] VITALS: BP 127/67; PULSE 48; RESP 16; TEMP 36.9; O2SAT 97
[2017-04-26] MEDS: Acetaminophen 325 MG Tablet 650 MG PO (05:23)
--- NOTE | 2017-04-26 05:55 | EKG12_ITS ---
Test Reason : AM EKG Blood Pressure : / mmHG Vent. Rate : 050 BPM Atrial Rate : 050 BPM P-R Int : 200 ms QRS Dur : 102 ms QT Int : 464 ms P-R-T Axes : -28 098 083 degrees QTc Int : 423 ms Sinus bradycardia with sinus arrhythmia Anterior infarct , age undetermined , cannot be excluded Abnormal ECG Confirmed by TREVOR PEREZ, IAN ([id number]), newspaper editor GIGI AGUIRRE ([id number] on 05/01/2017 11:15:37 AM Referred By: DR CARNEY Confirmed By:IAN MURRAY MD
[2017-04-26 06:56] VITALS: PULSE 46
[2017-04-26] MEDS: 0.9% Normal Saline 1,000 ML 75 ML IV (08:15)
[2017-04-26] MEDS: Multivitamins,Therapeutic Tablet 1 TABLET PO (08:16)
[2017-04-26] MEDS: Aspirin 81 MG TAB.CHEW PO (08:17)
[2017-04-26] MEDS: oxyCODONE 5 MG Tablet PO (08:19)
[2017-04-26 10:07] VITALS: BP 117/67; PULSE 48; RESP 14; TEMP 36.7; O2SAT 97
[2017-04-26] MEDS: APIXABAN 5 MG TABLET PO (10:13)
[2017-04-26] MEDS: Losartan Potassium 50 MG Tablet PO (10:22)
[2017-04-26 11:05] VITALS: PULSE 63
--- NOTE | 2017-04-26 11:49 | PCM.DC ---
- Discharge Diagnoses Current Active Problems: Current Active and Chronic Problems History of mitral valve repair (Chronic) Dyslipidemia (Chronic) New onset atrial fibrillation (Acute) Arrhythmia, AV node (Chronic) Prostate cancer (Chronic) On surveillance by Dr. Thomas Atrial fibrillation and flutter (Acute) HTN (hypertension) (Chronic) CAD (coronary artery disease) (Chronic) You will use the following diet at home:: Cardiac Discharge Activity: May not drive while taking narcotic pain medications. Additional Instructions: Discharge on a Holter monitor for 48 hours. Patient also need sleep study as an outpatient. Allergies/Adverse Reactions: Allergies No Known Allergies Allergy (Verified 06/15/16 12:19) Medications to take at Discharge Aspirin [Aspirin, Baby] 81 mg PO DAILY@0800 10/06/13 Biotin [Alexi Biotin] 5,000 mcg PO DAILY 10/06/13 BuPROPion (XL) [Wellbutrin Xl] 300 mg PO DAILY 10/06/13 Fish Oil/Dha/Epa [Fish Oil 1,200 mg Fish Oil] 1 each PO QHS 10/06/13 Lorazepam [Ativan] 0.25 tab PO DAILY PRN PRN 10/06/13 Losartan Potassium 50 mg PO DAILY 10/06/13 Multivitamins,Therapeutic [Multivitamin] 1 tab PO DAILY 10/06/13 Atorvastatin Calcium [Lipitor] 40 mg PO QHS 09/21/14 Apixaban [Eliquis] 5 mg PO BID #60 tab 04/26/17 The following prescriptions were given: Apixaban [Eliquis] 5 mg PO BID #60 tab Primary Care Physician: Jackson Das MD [Primary Care Provider] - Please follow up with your Primary Care Physician in: in 2 weeks Please Follow Up With: Ben Borges MD When: in 2-3 weeks Please Follow Up With: Yoan Romero DO When: for sleep study
--- NOTE | 2017-04-26 11:51 | DS.PCM_ITS ---
Discharge Date and Diagnosis Date of Admission: 04/23/17 Date of Discharge: 04/26/17 - Primary Discharge Diagnosis Active and Suspected Problems New onset atrial fibrillation (Acute) Atrial fibrillation and flutter (Acute) - Secondary Discharge Diagnosis Chronic Problems History of mitral valve repair (Chronic) Dyslipidemia (Chronic) Arrhythmia, AV node (Chronic) Prostate cancer (Chronic) On surveillance by Dr. Thomas HTN (hypertension) (Chronic) CAD (coronary artery disease) (Chronic) Hospital Course and Treatment Summary of Care Provided: [] The patient is a 71 year old M with history of mitral valve repair; annuloplasty , hypertension, dyslipidemia and prostate cancer, very early stage on surveillance came to ER with generalized weakness, fatigue and mild shortness of breath on exertion for past 2-3 weeks. Patient saw his PCP, Dr. Das who found that patient has tachycardia on EKG and A. fib with RVR and sent to ER. Patient denies any history of A. fib but has been feeling clear sensation for last 2-3 weeks. Patient was started on verapamil about 10 years ago by [facility] client consultant Dr. Amberly Rouse for the reason patient is not clear but probably possible AV belinda arrhythmia. The patient baseline heart rate is 60/min. 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 Denies history of coronary artery disease, CHF or [place] in the past. He had mitral valve repair in [address] Winters in [facility]. ER physician, Dr. Mccall discussed with Dr. Borges and he advised amiodarone drip and heparin drip. was seen and examined today. court recording monitor shows ectopic atrial bradycardia with intermittent junctional bradycardia. Discussed with client consultant Dr. Borges. General: Alert, Oriented x3, Cooperative HEENT: Atraumatic, PERRLA, EOMI, Normocephalic Neck: Supple, No JVD, Negative Carotid Bruits Lungs: Clear to auscultation, Normal air movement, No rhonchi, No wheeze, No rales Cardiovascular: Normal S1, Normal S2, Murmur. Ectopic atrial bradycardia/ junctional bradycardia on monitor Abdomen: Bowel Sounds Present, Soft, Non Tender, Non-Distended Extremities: No edema, Capillary Refill Less than 3 Seconds Skin: No rashes, No breakdown Musculoskeletal: No Tenderness to Palpation of Joints or Extremities Neurological: Cranial nerves II-XII grossly intact Psych/Mental Status: Normal Affect, Appropriate 1. New onset A. fib of unknown duration with RVR: Patient is being admitted on telemetry, PCU. Initially, started on IV heparin drip and amiodarone drip after amiodarone 150 mg IV bolus and will continue it. Serial cardiac enzymes are negative. TSH is normal. Echo in July 2016 shows normal LV size and systolic function, EF 60%. Normal right and left atria. Mitral valve shows focal mitral valve thickening, trivial eccentric MR with annuloplasty ring. Right ventricle reported normal. Patient had YURIDIA on 04/24/2017 and reported as left ventricular systolic function mildly depressed, EF 45%, mild LA enlargement , no obvious left atrial appendage thrombus. Mitral valve annuloplasty cream stable with trivial transvalvular MR. Mild TR. It was negative agitated saline test for interatrial shunt. Patient was cardioverted on 04/24/2017. Initially, patient was started on IV amiodarone and then converted to oral amiodarone and then discontinued as the patient is having junctional/sinus bradycardia. IV heparin drip was discontinued. Apixaban 5 mg p.o. twice daily. 2. Ectopic atrial tachycardia/junctional severe bradycardia: On the monitoring specialist, P-wave is not discernible so possible junctional bradycardia. Yesterday, heart rate in 30-40/min. Patient is off verapamil, amiodarone and other AV belinda inhibitors. heart rate is improved to 60s. Blood pressure is controlled. Patient is discharged home on Holter monitor for 48 hours. 2. 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 As mentioned above Clinical suspicion of obstructive sleep apnea contributing to ectopic atrial beats/hypertension: Prescription given for outpatient sleep study as well as for Holter. 3. Other chronic comorbidities include hypertension, dyslipidemia and prostate cancer, on surveillance: Home medication continued. DVT prophylaxis: On Eliquis paroxysmal A. fib Discharge medication reconciliation done. Discharge follow-up instructions completed. Prescriptions given. Discharge Activity: May not drive while taking narcotic pain medications. Home Medications: Medications to take at Discharge Aspirin [Aspirin, Baby] 81 mg PO DAILY@0800 10/06/13 Biotin [Alexi Biotin] 5,000 mcg PO DAILY 10/06/13 BuPROPion (XL) [Wellbutrin Xl] 300 mg PO DAILY 10/06/13 Fish Oil/Dha/Epa [Fish Oil 1,200 mg Fish Oil] 1 each PO QHS 10/06/13 Lorazepam [Ativan] 0.25 tab PO DAILY PRN PRN 10/06/13 Losartan Potassium 50 mg PO DAILY 10/06/13 Multivitamins,Therapeutic [Multivitamin] 1 tab PO DAILY 10/06/13 Atorvastatin Calcium [Lipitor] 40 mg PO QHS 09/21/14 Apixaban [Eliquis] 5 mg PO BID #60 tab 04/26/17 Following Prescrptions Were Given to Patient: Apixaban [Eliquis] 5 mg PO BID #60 tab Primary Care Physician: Jackson Das MD [Primary Care Provider] - Please follow up with your Primary Care Physician in: in 2 weeks Please Follow Up With: Ben Borges MD When: in 2-3 weeks Please Follow Up With: Yoan Romero DO When: for sleep study Meaningful Use Info Meaningful Use Diagnoses (Choose all that apply): None applicable Code Visit Inpatient E&M: 86651 Disch Hosp
--- NOTE | 2017-04-26 13:09 | CASEMGMT ---
Per Dr. Dennis, pt to go home on [employer]. Script e-scribed to Boris at this time and per Sarah Beth, co-pay is $43. Pt has cheerapp 30 day free coupon also. Pt voices understanding of all at this time. Brant WARNER CM
[2017-04-26 13:36] VITALS: BP 123/64; PULSE 47; RESP 15; TEMP 36.8; O2SAT 99
--- NOTE | 2017-04-26 21:53 | PCM.PN.CARD ---
Subjectve: The patient was evaluated earlier this day. He had been up and ambulating without symptoms or difficulty. Objective: Vital Signs Temp Pulse Resp BP Pulse Ox 98.3 F 47 L 15 123/64 H 99 04/26/17 13:36 04/26/17 13:36 04/26/17 13:36 04/26/17 13:36 04/26/17 13:36 Oxygen Delivery Method Room Air Weight: 153 lb 0.013 oz Body Mass Index (BMI) 23.2 Intake and Output for Last 24 Hours 04/24/17 04/25/17 04/26/17 23:59 23:59 23:59 Intake Total 2597.8 / 2597.8 3370 / 3370 1195 / 1195 Output Total 2700 / 2700 1075 / 1075 Balance -102.2 / -102.2 2295 / 2295 1195 / 1195 General: Awake, Alert, Oriented x 3, Cooperative, No Acute Distress Neck: No JVD Lungs: Clear to auscultation Cardiovascular: Regular Rhythm, Premature Ectopic Beats, Normal S1, Normal S2 Vascular: No Carotid Bruits Abdomen: Bowel Sounds Present, Soft, Non Tender Extremities: No edema Neurological: No Focal Motor or Sensory Deficit Rhythm: Sinus rhythm/sinus bradycardia/ectopic atrial bradycardia EKG: Sinus bradycardia Assessment/Plan 1. Atrial flutter/paroxysmal atrial fibrillation/bradycardia The patient presents with findings concerning for atrial fibrillation/flutter. He is now status post YURIDIA guided synchronized biphasic DC cardioversion. He has been monitored. He has demonstrated brief episodes appearing compatible with a paroxysmal atrial fibrillation. He is also demonstrated predominantly a bradycardia compatible with sinus bradycardia versus ectopic atrial bradycardia as well as episodes appearing compatible with transient junctional rhythm. He has not received his verapamil therapy. He has not received any additional amiodarone therapy after his IV amiodarone was discontinued. He has received any additional beta-michell therapy. Based upon his aforementioned findings there are concern as to whether he is demonstrating evidence compatible with an underlying bradycardia tachycardia syndrome or sick sinus syndrome. He has been up and ambulating without difficulty. He has had no obvious adverse events and/or symptoms. At the present time it was felt reasonable patient continued without rate limiting medication. He will continue his anticoagulant therapy. As he appears to be without any acute symptoms or adverse events it was also felt reasonable that he could be released home with continued outpatient follow-up. This would include outpatient ECG and outpatient Holter monitor. This may provide additional evidence, as he recovers from this event, as to his underlying rate and rhythm, during his usual daily activities, and whether or not he may need to be considered for findings compatible with a bradycardia tachycardia syndrome or sick sinus syndrome that may require permanent pacemaker placement as well as medical therapy. 2. 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 He has trivial transvalvular MR. He will continue AHA antibiotic prophylaxis as deemed appropriate. 3. CAD The patient does have a history of CAD as noted above. Thus far he has had no acute symptoms. His initial cardiac enzymes are negative. His ECG is demonstrated no acute ECG changes. He will continue evaluation care as noted above. 4. Hyperlipidemia He can continue medical management and laboratory evaluation as needed. 5. Hypertension His blood pressures will be followed. His medications can be adjusted as needed. Also, there is a concern as to whether or not he truly does have obstructive sleep apnea which could contribute to his atrial dysrhythmia and his hypertension. This was discussed with Dr. Romero of pulmonology and critical care medicine who participated in his DC cardioversion procedure. He is willing to evaluate the patient in the future with respect to this concern. Comment: The above was discussed with the patient and the [facility] hospitalist staff. They were agreeable to this approach. This note was generated with I-DISPOation software. It may contain incorrect words, spelling, and punctuation that were not noted in checking the note before signing.
== END 2017-04-26 13:45 | disposition home or self-care (01) | DRG 310 ==
LOC: ED 11:17 → PCU 12:29
PROVIDERS: Admitting Provider Internal Medicine; Emergency Provider Emergency Medicine; Family Provider Family Medicine; PCP Family Medicine; Visit Provider Internal Medicine
DX: I48.0 Paroxysmal atrial fibrillation (principal); C61 Malignant neoplasm of prostate; I48.92 Unspecified atrial flutter; E78.5 Hyperlipidemia, unspecified; Z79.899 Other long term (current) drug therapy; I10 Essential (primary) hypertension; G47.33 Obstructive sleep apnea (adult) (pediatric); R00.1 Bradycardia, unspecified; I25.10 Atherosclerotic heart disease of native coronary artery without angina pectoris
CPT/HCPCS: 36415; 71045; 80048; 80053; 80061; 82947; 83036; 83735; 84153; 84443; 84484; 85025; 85610; 85730; 92960; 93005; 93312; 93320; 93325; 99285; J7030; A4216; J0153; J2405

== ENCOUNTER → 2017-07-15 07:14 | Outpatient (CLI) | payer MEDICARE, OTHER, SELFPAY ==
[2017-07-15 11:13] LABS: PSA,Total- Diagnostic 3.95 ng/mL (0.0-4.0)
== END ==
PROVIDERS: Family Provider Family Medicine; PCP Family Medicine; Visit Provider Urology
DX: C61 Malignant neoplasm of prostate (principal)
CPT/HCPCS: 36415; 84153

== ENCOUNTER → 2017-07-30 20:00 | Outpatient (CLI) | payer MEDICARE, OTHER, SELFPAY | PROVIDERS: Family Provider Family Medicine; PCP Family Medicine; Visit Provider Internal Medicine Critical Care Medicine | DX: G47.33 Obstructive sleep apnea (adult) (pediatric) (principal); G47.10 Hypersomnia, unspecified | CPT/HCPCS: 95811 ==

== ENCOUNTER → 2017-08-20 18:08 | Outpatient (CLI) | payer MEDICARE, OTHER, SELFPAY ==
--- NOTE | 2017-08-20 18:25 | RAD_ITS ---
STUDY: X-RAY - SOFT TISSUE NECK REASON FOR EXAM: Male, 72 years old. Snoring. Cephalometric airway measurement. TECHNIQUE: AP and lateral view(s) of the neck were obtained. COMPARISON: None. FINDINGS: Normal visualized nasopharynx, oropharynx, hypopharynx. The airway measures 19.1 mm from the base of the tongue to the anterior prevertebral soft tissues at the C2 level. Normal epiglottis. Normal visualized subglottic tracheal air column. Normal prevertebral soft tissue structures. There are degenerative changes of the cervical spine with cervical spondylosis. The soft tissue structures are unremarkable. RAD/Neck for Soft Tissue IMPRESSION: Normal airway. Degenerative changes of the cervical spine. Electronically Signed: Jermaine Murphy MD at 8:21 EDT Tel [phone], Service support ,
== END ==
PROVIDERS: Family Provider Family Medicine; PCP Family Medicine; Visit Provider Otolaryngology Otolaryngology/Facial Plastic Surgery
DX: M47.892 Other spondylosis, cervical region (principal); G47.33 Obstructive sleep apnea (adult) (pediatric); R06.83 Snoring
CPT/HCPCS: 70360

== ENCOUNTER → 2017-10-15 14:42 | Outpatient (CLI) | payer MEDICARE, OTHER, SELFPAY | PROVIDERS: Family Provider Family Medicine; PCP Family Medicine; Visit Provider Internal Medicine Critical Care Medicine | DX: G47.33 Obstructive sleep apnea (adult) (pediatric) (principal) | CPT/HCPCS: 94762 ==

== ENCOUNTER → 2017-10-31 07:30 | Outpatient (CLI) | payer MEDICARE, OTHER, SELFPAY | PROVIDERS: Family Provider Family Medicine; PCP Family Medicine; Visit Provider Internal Medicine Critical Care Medicine | DX: G47.33 Obstructive sleep apnea (adult) (pediatric) (principal) | CPT/HCPCS: 94762 ==

== ENCOUNTER → 2018-01-20 07:39 | Outpatient (CLI) | payer MEDICARE, OTHER, SELFPAY ==
[2018-01-20 10:31] LABS: PSA,Total- Diagnostic 4.93 ng/mL (0.0-4.0)
== END ==
PROVIDERS: Family Provider Family Medicine; PCP Family Medicine; Referring Provider Urology; Visit Provider Urology
DX: C61 Malignant neoplasm of prostate (principal)
CPT/HCPCS: 36415; 84153

== ENCOUNTER → 2018-02-10 07:05 | Outpatient (CLI) | payer MEDICARE, OTHER, SELFPAY ==
[2018-02-10 11:03] LABS: AST(SGOT) 42 U/L (15-37); Alanine Aminotransfer ALT/SGPT 57 U/L (16-61); Alkaline Phosphatase 78 U/L (45-117); Bilirubin, Direct 0.27 mg/dL (0.00-0.30); Cholesterol 132 mg/dL (200); Globulin 2.7 g/dL (2.2-4.2); High Density Lipoprotein 58 mg/dL; Protein, Total 6.7 g/dL (6.4-8.2); Triglycerides 46 mg/dL; Very Low Density Lipoprotein 9 mg/dL (5-40)
== END ==
PROVIDERS: Family Provider Family Medicine; PCP Family Medicine; Referring Provider Internal Medicine Cardiovascular Disease; Visit Provider Internal Medicine Cardiovascular Disease
DX: I25.10 Atherosclerotic heart disease of native coronary artery without angina pectoris (principal); E78.5 Hyperlipidemia, unspecified
CPT/HCPCS: 36415; 80061; 80076

== ENCOUNTER → 2018-07-15 | Outpatient (CLI) | payer MEDICARE, OTHER, SELFPAY ==
--- NOTE | 2018-07-15 11:58 | RAD_ITS ---
STUDY: X-RAY - RIGHT HAND, ATTENTION INDEX FINGER REASON FOR EXAM: Male, 73 years old. Pain. TECHNIQUE: 3 view(s) of the finger were obtained. COMPARISON: None. FINDINGS: Normal metacarpal head. Normal metacarpophalangeal joint. Normal proximal phalanx. Normal middle phalanx. Normal distal phalanx. Normal proximal interphalangeal joint. Normal distal interphalangeal joint. RAD/Finger(s) Min 2 Views IMPRESSION: Normal x-ray examination of the finger. Electronically Signed: Jermaine Murphy, at 11:34 EDT , Service support ,
== END | disposition home or self-care (01) ==
LOC: MTLAB 11:57
PROVIDERS: Family Provider Family Medicine; PCP Family Medicine; Referring Provider Family Medicine; Visit Provider Family Medicine
DX: M19.041 Primary osteoarthritis, right hand (principal)
CPT/HCPCS: 73140

== ENCOUNTER → 2018-07-28 07:01 | Outpatient (CLI) | payer MEDICARE, OTHER, SELFPAY ==
[2018-07-28 10:36] LABS: PSA,Total- Diagnostic 5.46 ng/mL (0.0-4.0)
== END ==
PROVIDERS: Family Provider Family Medicine; PCP Family Medicine; Referring Provider Urology; Visit Provider Urology
DX: C61 Malignant neoplasm of prostate (principal)
CPT/HCPCS: 36415; 84153

== ENCOUNTER → 2019-02-02 | Outpatient (CLI) | payer MEDICARE, OTHER, SELFPAY ==
[2018-09-02 10:17] VITALS: BMI 24.0
[2019-02-02 10:22] LABS: PSA,Total- Diagnostic 6.32 ng/mL (0.0-4.0)
== END | disposition home or self-care (01) ==
LOC: MTLAB 07:04
PROVIDERS: Family Provider Family Medicine; PCP Family Medicine; Referring Provider Urology; Visit Provider Urology
DX: C61 Malignant neoplasm of prostate (principal)
CPT/HCPCS: 36415; 84153

== ENCOUNTER → 2019-07-31 07:10 | Outpatient (CLI) | payer MEDICARE, OTHER, SELFPAY ==
[2018-09-02 10:17] VITALS: BMI 24.0
[2019-07-31 10:30] LABS: ALB/GLOB Ratio 1.6 RATIO (0.9-2.4); AST(SGOT) 23 U/L (15-37); Alanine Aminotransfer ALT/SGPT 52 U/L (16-61); Albumin, Serum 3.9 g/dL (3.2-5.0); Alkaline Phosphatase 82 U/L (45-117); Anion Gap 6 (5-15); BUN 17 mg/dL (7-18); BUN/Creat Ratio 21.5 RATIO (10-20); Bilirubin, Direct 0.23 mg/dL (0.00-0.30); Calcium,Total 8.6 mg/dL (8.5-10.1); Chloride 107 mmol/L (98-107); Cholesterol 119 mg/dL (200); Creatinine, Serum 0.79 mg/dL (0.70-1.30); EST Glomerular Filtration Rate 103 mL/min (>60); Est Glom Filt Rate - Afr Amer 124 mL/min (>60); Globulin 2.5 g/dL (2.2-4.2); Glucose 97 mg/dL (74-106); High Density Lipoprotein 51 mg/dL; PSA,Total- Diagnostic 4.12 ng/mL (0.0-4.0); Potassium 3.8 mmol/L (3.5-5.1); Protein, Total 6.4 g/dL (6.4-8.2); Sodium Level 139 mmol/L (136-145); Triglycerides 43 mg/dL; Very Low Density Lipoprotein 9 mg/dL (5-40)
== END ==
PROVIDERS: PCP Family Medicine; Referring Provider Internal Medicine Cardiovascular Disease; Visit Provider Internal Medicine Cardiovascular Disease
DX: C61 Malignant neoplasm of prostate (principal); I25.10 Atherosclerotic heart disease of native coronary artery without angina pectoris; E78.00 Pure hypercholesterolemia, unspecified
CPT/HCPCS: 36415; 80053; 80061; 82248; 84153

== ENCOUNTER → 2019-09-15 11:01 | Outpatient (CLI) | payer MEDICARE, OTHER, SELFPAY ==
[2019-08-21 13:00] VITALS: BMI 22.9
--- NOTE | 2019-09-15 11:02 | ECHOD_ITS ---
Reason For Study: MVP Procedure This was a 2D Doppler, Color Flow transthoracic echocardiogram. Exam performed in department. Left Ventricle Normal LV size. The estimated ejection fraction is 55 %. No regional wall motion abnormalities noted. Right Ventricle Normal RV size. Normal systolic function. Atria The left atrium is moderately enlarged. The right atrium is mildly enlarged. Mitral Valve Status post mitral valve repair with annuloplasty ring. Tricuspid Valve Normal tricuspid valve. Mild tricuspid valve insufficiency. Aortic Valve Trisinus/trileaflet aortic valve. Pulmonic Valve Normal pulmonic valve. Great Vessels Normal aortic root. The pulmonary artery is normal size. Normal inferior vena cava. Pericardium/Pleural No pericardial effusion. MMode/2D Measurements & Calculations LVIDd: 5.5 cm IVSd: 0.88 cm LAV(MOD-bp): 80.9 ml LVIDs: 3.8 cm LVPWd: 0.99 cm LAV(MOD-bp) Indexed: 44.6 ml/m2 RVDd: 3.5 cm FS: 30.4 % LAV(MOD-sp2): 75.8 ml LAV(MOD-sp4): 80.4 ml LA dimension(2D): 3.8 cm LA A4 area: 24.9 cm2 RA A4 area: 22.1 cm2 Doppler Measurements & Calculations MV E max devon: 157.4 cm/sec Lat Peak E' Devon: 5.2 cm/sec Med Peak E' Devon: 9.1 cm/sec MV A max devon: 128.4 cm/sec E/E' lat: 30.5 E/E' med: 17.3 MV E/A: 1.2 MV V2 max: 152.7 cm/sec Ao V2 max: 152.1 cm/sec LV V1 max: 115.3 cm/sec MV max P.3 mmHg Ao max P.3 mmHg LV V1 max P.3 mmHg MV V2 mean: 92.3 cm/sec MV mean P.8 mmHg MV V2 VTI: 62.6 cm PA V2 max: 110.6 cm/sec TR max devon: 206.6 cm/sec TR max P.1 mmHg Interpretation Summary Status post mitral valve repair with annuloplasty ring. Normal LV size. The estimated ejection fraction is 55 %. Mild tricuspid valve insufficiency. Compared to prior study, there is no significant change. Ordering Physician: Rocky Nelson Referring Physician: Jackson Field Performed By: Rachna Sandhu RDCS, RVT
== END ==
PROVIDERS: PCP Family Medicine; Referring Provider Internal Medicine Cardiovascular Disease; Visit Provider Internal Medicine Cardiovascular Disease
DX: R07.89 Other chest pain (principal)
CPT/HCPCS: 93306

== ENCOUNTER → 2019-10-13 10:43 | Outpatient (CLI) | payer MEDICARE, OTHER, SELFPAY ==
[2019-08-21 13:00] VITALS: BMI 22.9
[2019-10-14 16:08] LABS: Endomysial Antibody IgA Negative (Negative)
[2019-10-14 16:43] LABS: Deamidated Gliadin IgA 3 units (0-19); Deamidated Gliadin IgG 3 units (0-19); Immunoglobulin A 94 mg/dL (61-437); t-Transglutaminase IgA <2 U/mL (0-3)
== END ==
PROVIDERS: PCP Family Medicine; Visit Provider Family Medicine
DX: R10.9 Unspecified abdominal pain (principal)
CPT/HCPCS: 36415; 82784; 83516; 86255

== ENCOUNTER 2019-11-03 09:30 | Outpatient (RCR) | payer MEDICARE, OTHER, SELFPAY ==
[2019-08-21 13:00] VITALS: BMI 22.9
--- NOTE | 2019-10-16 11:40 | HP.OTEVAL ---
Patient's Visit Information RYLEY MCKEON is a 74 year old M, referred to Occupational Therapy by Dr. 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 Pt states pain is better but still stiff and painful in am. - Pain bilateral hands 4 Pain Intensity Range: 2, 6 - ROM ROM Comments: pt demo good ROM of bilateral hands and wrist- pt does demo with OA deformities of bilateral thumbs and right IF MCP region. 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 pt will demo understanding of joint protection kassy. by end of 2nd session to decrease joint stress while performing home mtg tasks. Pt will demo understanding of thumb care stabilization exercises to provide protection and support to bilateral CMC joints by d/c - Rehabilitation General Assessment: PT demo with positive OA in bilateral hand. Increase use of hands for home mtg increases pain and joint stiffness. Pt demo need of skilled OT services 1x week for 3 weeks. Today therapist ed pt on joint protection kassy, use of cmc brace with heavy work and use of heat as modality to decrease stiffness and pain. on pts 2nd visit therapist will ed. pt on thumb care stabilization ex. pt demo understanding and agree to POC. Rehabilitation Potential: Good - Anticipated Interventions Modalities, Orthoses, Joint Protection/Energy Conservation, Ergonomic Education, Fine Motor Coord/Jose D - Visit Plan Frequency: 1x/Week Duration: 3 Months TEXT: Thank you for the opportunity to evaluate your patient. For Medicare and Medicare HMO plans, please review the plan of care and approve it. It will need to be FAXED BACK to us at [phone] for Medicare purposes. Please let me know if there are questions or concerns regarding this plan of care. Physician Signature: Date:
--- NOTE | 2019-12-24 09:20 | HP.OTDCSUM ---
It has been my pleasure to treat RYLEY MCKEON under orders from Dr. 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 Please see the following information for a summary of their discharge status. % Improvement: 80 Objective/Function: Pt demo understanding of information Patient Goals: Decrease Pain, Use Hand/Wrist/Arm Normally Again Goal:: pt will report pain no greater than 1/10 with use of bilateral hand for ADls and home mtg tasks by d.c Goal:: Pt will demo understanding of work/lifting and carry ergonomics to decrease stress on tendons to increase pts independent with ADLs, IADLS and work tasks by d/c. pt will demo understanding of joint protection kassy. by end of 2nd session to decrease joint stress while performing home mtg tasks. Pt will demo understanding of thumb care stabilization exercises to provide protection and support to bilateral CMC joints by d/c Plan: Discharge pt, given business call and told to call if he had any questions If there are questions or concerns regarding this patient's occupational therapy, please fell free to call me at [phone]. Thank you for the referral of this patient. Sincerely, Gemma Del Valle, OTR/L, CHT
== END 2019-11-03 19:00 | disposition home or self-care (01) ==
LOC: OT 09:30
PROVIDERS: PCP Family Medicine; Referring Provider Orthopaedic Surgery; Visit Provider Orthopaedic Surgery
DX: M18.12 Unilateral primary osteoarthritis of first carpometacarpal joint, left hand (principal); M19.041 Primary osteoarthritis, right hand; M19.042 Primary osteoarthritis, left hand
CPT/HCPCS: 97035; 97166; 97530

== ENCOUNTER → 2019-11-20 13:11 | Outpatient (CLI) | payer MEDICARE, OTHER, SELFPAY ==
[2019-08-21 13:00] VITALS: BMI 22.9
== END ==
PROVIDERS: PCP Family Medicine; Referring Provider Family Medicine; Visit Provider Family Medicine
DX: Z20.828 Contact with and (suspected) exposure to other viral communicable diseases (principal); J02.9 Acute pharyngitis, unspecified
CPT/HCPCS: 87070; 87077; 87635; U0003

== ENCOUNTER → 2020-01-12 14:15 | Outpatient (CLI) | payer MEDICARE, OTHER, SELFPAY ==
[2018-09-02 10:17] VITALS: BMI 24.0
[2019-08-21 13:00] VITALS: BMI 22.9
[2020-01-12 17:48] LABS: Absolute Lymphocyte Count 1.87 X10^3/uL (0.83-4.51); Absolute Neutrophil Count 5.3 X10^3/uL (2.0-7.7); Basophil# 0.05 X10^3/uL; Basophil% 0.6 % (0-1); Eosinophil# 0.15 X10^3/uL; Eosinophils% 1.9 % (0-5); Hemoglobin 14.2 g/dL (13.0-16.5); Lymphocyte # 1.87 X10^3/ul (4.0); Lymphocyte % 23.6 % (19-41); Mean Corpuscular Hgb 30.1 pg (27.0-32.0); Mean Corpuscular Volume 91.1 fL (80-94); Mean Platelet Vol. 9.1 fl (6.2-12.0); Monocyte# 0.49 X10^3/uL; Monocyte% 6.2 % (0-10); NRBC Flagged by Analyzer 0 % (0-5); Neutrophil # 5.33 X10^3/uL (2.7-7.7); Neutrophil % 67.4 % (47-70); Platelet Count 308 K/mm3 (150-450); RBC Distribution Width CV 12.7 % (11.6-14.6); RBC Distribution Width SD 42.1 fl (35.1-43.9); Red Blood Count 4.72 M/mm3 (4.6-6.2); White Blood Count 7.9 K/mm3 (4.4-11.0)
[2020-01-12 18:10] LABS: PSA,Total- Diagnostic 5.26 ng/mL (0.0-4.0)
[2020-01-12 18:10] LABS: ALB/GLOB Ratio 1.4 RATIO (0.9-2.4); AST(SGOT) 28 U/L (15-37); Alanine Aminotransfer ALT/SGPT 50 U/L (16-61); Albumin, Serum 3.8 g/dL (3.2-5.0); Alkaline Phosphatase 104 U/L (45-117); Anion Gap 6 (5-15); BUN 18 mg/dL (7-18); BUN/Creat Ratio 24.3 RATIO (10-20); Calcium,Total 8.7 mg/dL (8.5-10.1); Chloride 109 mmol/L (98-107); Creatinine, Serum 0.74 mg/dL (0.70-1.30); EST Glomerular Filtration Rate 110 mL/min (>60); Est Glom Filt Rate - Afr Amer 133 mL/min (>60); Globulin 2.8 g/dL (2.2-4.2); Glucose 106 mg/dL (74-106); Protein, Total 6.6 g/dL (6.4-8.2); Sodium Level 139 mmol/L (136-145); Thyroid Stim Hormone (TSH) 1.17 uIU/mL (0.358-3.74)
[2020-01-13 08:36] LABS: Vitamin B12 650 pg/mL (211-911); Vitamin D,25 Hydroxy 60.3 ng/mL
== END ==
PROVIDERS: PCP Family Medicine; Referring Provider Family Medicine; Visit Provider Urology
DX: C61 Malignant neoplasm of prostate (principal); R53.83 Other fatigue
CPT/HCPCS: 36415; 80053; 82306; 82607; 84153; 84443; 85025

== ENCOUNTER → 2020-03-07 11:57 | Outpatient (CLI) | payer MEDICARE, OTHER, SELFPAY ==
[2019-08-21 13:00] VITALS: BMI 22.9
[2020-03-07 15:16] LABS: Hematocrit 43.6 % (40-54); Hemoglobin 14.4 g/dL (13.0-16.5); Mean Corpuscular Hgb 30.6 pg (27.0-32.0); Mean Corpuscular Volume 92.6 fL (80-94); Platelet Count 293 K/mm3 (150-450); RBC Distribution Width CV 12.9 % (11.6-14.6); RBC Distribution Width SD 43.9 fl (35.1-43.9); Red Blood Count 4.71 M/mm3 (4.6-6.2); White Blood Count 6.6 K/mm3 (4.4-11.0)
[2020-03-07 15:30] LABS: Anion Gap 5 (5-15); BUN 20 mg/dL (7-18); Calcium,Total 9.1 mg/dL (8.5-10.1); Chloride 106 mmol/L (98-107); Creatinine, Serum 0.87 mg/dL (0.70-1.30); EST Glomerular Filtration Rate 92 mL/min (>60); Est Glom Filt Rate - Afr Amer 111 mL/min (>60); Glucose 118 mg/dL (74-106); Potassium 4.5 mmol/L (3.5-5.1); Sodium Level 142 mmol/L (136-145)
== END ==
PROVIDERS: PCP Family Medicine; Referring Provider Urology; Visit Provider Urology
DX: Z01.812 Encounter for preprocedural laboratory examination (principal)
CPT/HCPCS: 36415; 80048; 85027

== ENCOUNTER → 2020-03-17 09:59 | Outpatient (CLI) | payer MEDICARE, OTHER, SELFPAY ==
[2019-08-21 13:00] VITALS: BMI 22.9
--- NOTE | 2020-03-17 10:04 | EKG12_ITS ---
Test Reason : PREOP Blood Pressure : / mmHG Vent. Rate : 057 BPM Atrial Rate : 416 BPM P-R Int : 000 ms QRS Dur : 094 ms QT Int : 430 ms P-R-T Axes : 000 087 085 degrees QTc Int : 418 ms Atrial fibrillation Septal infarct , age undetermined Abnormal ECG Confirmed by YESICA PEREZ, RIC ([id number]), news assignment editor ROE LARA ([id number]) on 03/18/2020 8:54:38 A M Referred By: Cecil Thomas Confirmed By:DEEPTHI ROBERT MD
== END ==
PROVIDERS: PCP Family Medicine; Referring Provider Urology; Visit Provider Urology
DX: Z01.812 Encounter for preprocedural laboratory examination (principal); I05.9 Rheumatic mitral valve disease, unspecified; I15.9 Secondary hypertension, unspecified; I48.91 Unspecified atrial fibrillation
CPT/HCPCS: 87635; 93005; C9803; U0003

== ENCOUNTER → 2020-07-19 11:57 | Outpatient (CLI) | payer MEDICARE, OTHER, SELFPAY ==
[2019-08-21 13:00] VITALS: BMI 22.9
--- NOTE | 2020-07-19 12:00 | RAD_ITS ---
STUDY: X-RAY - CERVICAL SPINE REASON FOR EXAM: Male, 75 years old. CERVICAL OA TECHNIQUE: 5 view(s) of the cervical spine were obtained. COMPARISON: None FINDINGS: Normal anterior atlantoaxial articulation. Normal odontoid process. There is reversal of the normal cervical lordosis. There is multi-level endplate spondylosis. There is multi-level degenerative disc disease with multilevel disc space narrowing. 5 mm of anterolisthesis of C2 on C3 and 2 mm of anterolisthesis of C3 on C4 and C4 on C5. There is multi-level osseous foraminal stenosis. The soft tissue structures are unremarkable. RAD/Cerv Spine 4 or 5 Views IMPRESSION: Moderate degenerative disc disease with reversal of the normal lordotic curvature and anterolisthesis of C2 on C3, C3 on C4, and C4 on C5. Electronically Signed: Holger Pickard MD at 10:15 EDT Tel , Service support ,
== END ==
PROVIDERS: PCP Family Medicine; Referring Provider Family Medicine; Visit Provider Family Medicine
DX: M47.812 Spondylosis without myelopathy or radiculopathy, cervical region (principal)
CPT/HCPCS: 72050

== ENCOUNTER → 2020-08-22 07:37 | Outpatient (CLI) | payer MEDICARE, OTHER, SELFPAY ==
[2019-08-21 13:00] VITALS: BMI 22.9
[2020-08-22 10:47] LABS: AST(SGOT) 21 U/L (15-37); Alanine Aminotransfer ALT/SGPT 42 U/L (16-61); Albumin, Serum 3.8 g/dL (3.2-5.0); Alkaline Phosphatase 87 U/L (45-117); Bilirubin, Direct 0.22 mg/dL (0.00-0.30); Cholesterol 141 mg/dL (200); Globulin 2.7 g/dL (2.2-4.2); High Density Lipoprotein 55 mg/dL; Protein, Total 6.5 g/dL (6.4-8.2); Triglycerides 66 mg/dL; Very Low Density Lipoprotein 13 mg/dL (5-40)
== END ==
PROVIDERS: PCP Family Medicine; Referring Provider Internal Medicine Cardiovascular Disease; Visit Provider Internal Medicine Cardiovascular Disease
DX: E78.5 Hyperlipidemia, unspecified (principal)
CPT/HCPCS: 36415; 80061; 80076

== ENCOUNTER 2020-08-25 07:30 | Outpatient (RCR) | payer MEDICARE, OTHER, SELFPAY ==
[2019-08-21 13:00] VITALS: BMI 22.9
--- NOTE | 2020-07-26 15:43 | HP.PTEVAL ---
Patient's Visit Information RYLEY MCKEON is a 75 year old M referred to Physical Therapy by Dr. Jackson Field MD with a diagnosis of Cervical Spine OA. Date of Evaluation: 07/26/20 Physical Therapist: Katarzyna Mills DPT - Visit Plan Frequency: 2x /Week Duration: 4 Weeks Plan: Ultrasound as modality of choice. Scapular strength/stabilization- ROM of the cervical spine- gentle distraction and manual. - Subjective Patient has had neck pain for 3-4 months- mostly restriction. 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 They worked on fixing up the house during it- it flared up his arthritis. When he is driving the whole body turns. Started a chiropractor-and he does not have an x-ray machine. He is still seeing the chiropractor- has only down 4 sessions. Uses an actuator and massage- only there about 15 min with gentle traction. Unsure if he is better but he is not worse. Chiro thought he would need about 11 sessions. When he tries to go into more motion the pain is there. Describes the pain as dull and achy. Will have electric when he flexion/extension when he gets up in the AM. Worst: 6/10. Agg: end range. Had to stop running Best: 0/10 Eases: Advil, Likes to be in his reclyner. Pain is located in the occiput and through the upper trap and levator. No radiating pain down the upper extremity. 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 No increase in blurred vision or dizziness. Has had morning where the CONN wakes him up- has had x-rays taken but no MRI on the cervical spine. Right hand dominate. 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 Sleep: on his side. PMHHx. mitral valve repair 2000, a-fib 2013 low grade cancer in the prostate. Meds: see list - Objective Posture: FH, RS-can correct with verbal and tactile cues but does not maintain. Gait: good arm swing and trunk rotation. Palpation: tender along upper trap and medial border of the scapula and into the occiput. ROM: Cervical: flexion: chin to chest, extn: decreased by 50%, SB: decreased by 75% Rot: decreased by 75%. Shoulder/Elbow/Hand: WFL. Strength: Scap: poor- moderate winging right>left, Shoulder: 4+/5, Elbow: 5/5 Heavy Line Technician: Right: 100 of force Left: 75lbs of force. Special Test: Neer: positive, Alarcon Omi: positive, Empty can: positive, Distraction: no change in s/s. - Goals Goal 1:: Patient will be I with HEP and progression Goal Time Frame: 4-6 Weeks Goal 2:: Patient will demo full AROM in the cervical spine Goal Time Frame: 4-6 Weeks Goal 3:: Patient will report no pain for 1 week Goal Time Frame: 4-6 Weeks Goal 4:: Patient will maintain proper posture t/o tx session to demo increased scap s/s Goal Time Frame: 4-6 Weeks - Rehabilitation Potential Physical Therapy Diagnosis: Patient presents with hypomobility- he has decreased ROM, strength, and muscular endurance leading to poor posture and increased pain with ADL's. Rehabilitation Potential: Good - Anticipated Interventions Patient/Client Instruction: Educate patient on: Benefits of Fitness Program Therapeutic Exercise to Include: Strength training, Endurance training, Agility training, Body mechanics, Postural training, Flexibilty training, Neuromotor development, Passive ROM, Active ROM, Dynamic Lumbar Stabilization, Scapular Strength/Stabilization For the Purpose of:: To improve muscle performance and motor function Thank you for the opportunity to evaluate your patient. For Medicare and Medicare HMO plans, please review the plan of care and approve it. It will need to be FAXED BACK to us at [phone] for Medicare purposes. For Medicare only, by signing this I certify the plan of care. Please let me know if there are questions or concerns regarding this plan of care. Physician Signature: Date:
--- NOTE | 2020-08-25 07:55 | HP.PTDCSUM ---
It has been my pleasure to treat RYLEY MCKEON referred by Dr. Jackson Field MD, with the diagnosis of Cervical Spine OA for a total of 10 visit(s). Discharge Date: Please see the following information for a summary of their discharge status. Subjective: Patient reports that he feels great- he feels a lot of improvement. His chiro he is planning on going every 2 weeks instead. He feels stronger and is able to do all of his stuff after a long day of work % Improvement: 99 Objective/Function: Posture: good throughout. Gait: good arm swing and trunk rotation. Palpation: not tender to touch in cervical paraspinals. ROM: Cervical: flexion: chin to chest, extn: WFL, SB: decreased by 25% Rot: decreased by 25%. no pain with any motion Shoulder/Elbow/Hand: WFL. 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 Goal 1:: Patient will be I with HEP and progression Goal Progress: Goal Met Goal 2:: Patient will demo full AROM in the cervical spine Goal Progress: Progressing Goal 3:: Patient will report no pain for 1 week Goal Progress: Goal Met Goal 4:: Patient will maintain proper posture t/o tx session to demo increased scap s/s Plan: Discharge to I home exercise program. Ultrasound as modality of choice. Scapular strength/stabilization- ROM of the cervical spine- gentle distraction and manual. If there are questions or concerns regarding this patient's physical therapy, please feel free to call me at [phone]. Thank you for the referral of this patient. Sincerely, Katarzyna Mills DPT
== END 2020-08-25 19:00 | disposition home or self-care (01) ==
LOC: PT 07:30
PROVIDERS: PCP Family Medicine; Referring Provider Family Medicine; Visit Provider Family Medicine
DX: M47.812 Spondylosis without myelopathy or radiculopathy, cervical region (principal)
CPT/HCPCS: 97035; 97110; 97162; 97164

== ENCOUNTER → 2020-10-03 07:56 | Outpatient (CLI) | payer MEDICARE, OTHER, SELFPAY ==
[2020-08-23 08:05] VITALS: BMI 22.6
[2020-10-03 10:42] LABS: PSA,Total- Diagnostic 7.27 ng/mL (0.0-4.0)
== END ==
PROVIDERS: PCP Family Medicine; Referring Provider Urology; Visit Provider Urology
DX: C61 Malignant neoplasm of prostate (principal)
CPT/HCPCS: 36415; 84153

== ENCOUNTER → 2020-11-22 11:46 | Outpatient (CLI) | payer MEDICARE, OTHER, SELFPAY ==
[2020-08-23 08:05] VITALS: BMI 22.6
[2020-11-22 14:53] LABS: Absolute Lymphocyte Count 2.06 X10^3/uL (0.83-4.51); Absolute Neutrophil Count 3.4 X10^3/uL (2.0-7.7); Basophil# 0.05 X10^3/uL; Basophil% 0.8 % (0-1); Eosinophil# 0.21 X10^3/uL; Eosinophils% 3.4 % (0-5); Hematocrit 46.8 % (40-54); Hemoglobin 15.7 g/dL (13.0-16.5); Lymphocyte # 2.06 X10^3/ul (0.83-4.51); Mean Corp Hgb Conc 33.5 g/dL (32-36); Mean Corpuscular Hgb 30.1 pg (27.0-32.0); Mean Corpuscular Volume 89.8 fL (80-94); Mean Platelet Vol. 9.2 fl (6.2-12.0); Monocyte# 0.48 X10^3/uL; Monocyte% 7.7 % (0-10); NRBC Flagged by Analyzer 0 % (0-5); Neutrophil # 3.43 X10^3/uL (2.7-7.7); Neutrophil % 54.9 % (47-70); Platelet Count 303 K/mm3 (150-450); RBC Distribution Width SD 42.8 fl (35.1-43.9); Red Blood Count 5.21 M/mm3 (4.6-6.2); White Blood Count 6.2 K/mm3 (4.4-11.0)
[2020-11-22 15:26] LABS: Anion Gap 5 (5-15); BUN 12 mg/dL (7-18); BUN/Creat Ratio 16.2 RATIO (10-20); Chloride 106 mmol/L (98-107); Creatinine, Serum 0.74 mg/dL (0.70-1.30); EST Glomerular Filtration Rate 110 mL/min (>60); Est Glom Filt Rate - Afr Amer 133 mL/min (>60); Glucose 117 mg/dL (74-106); PSA,Total- Diagnostic 6.77 ng/mL (0.0-4.0); Potassium 4.2 mmol/L (3.5-5.1); Sodium Level 140 mmol/L (136-145); Thyroid Stim Hormone (TSH) 1.11 uIU/mL (0.358-3.74)
== END ==
PROVIDERS: PCP Family Medicine; Referring Provider Family Medicine; Visit Provider Family Medicine
DX: I10 Essential (primary) hypertension (principal); C61 Malignant neoplasm of prostate; R53.83 Other fatigue
CPT/HCPCS: 36415; 80048; 84153; 84443; 85025

== ENCOUNTER → 2021-09-19 | Outpatient (CLI) | payer MEDICARE, OTHER, SELFPAY ==
--- NOTE | 2021-09-19 09:47 | ECHOD_ITS ---
Reason For Study: MURMUR Procedure This was a 2D Doppler, Color Flow transthoracic echocardiogram. Exam performed in department. Left Ventricle Normal LV size. Left ventricular systolic function is normal. The estimated ejection fraction is 60 %. Stage 2 diastolic dysfunction. No regional wall motion abnormalities noted. Right Ventricle Normal RV size. Normal systolic function. Atria Normal left atrium. Normal right atrium. Mitral Valve An annuloplasty ring is noted in the mitral position. Status post mitral valve repair with annuloplasty ring. Tricuspid Valve Normal tricuspid valve. Mild tricuspid valve insufficiency. Pulmonary artery systolic pressure is 24 mmHg. Aortic Valve Trisinus/trileaflet aortic valve. Pulmonic Valve Normal pulmonic valve. Great Vessels Normal aortic root. The pulmonary artery is normal size. Normal inferior vena cava. Pericardium/Pleural No pericardial effusion. MMode/2D Measurements & Calculations LVIDd: 4.7 cm IVSd: 0.87 cm Ao root diam: 3.1 cm LVIDs: 3.0 cm LVPWd: 0.80 cm RVDd: 3.5 cm FS: 36.7 % LAV(MOD-sp4): 53.4 ml LVAd ap4: 27.5 cm2 SV(MOD-sp4): 49.8 ml LVLd ap4: 7.9 cm EDV(MOD-sp4): 79.9 ml EDV(sp4-el): 81.0 ml LVAs ap4: 15.0 cm2 LVLs ap4: 6.0 cm ESV(MOD-sp4): 30.1 ml ESV(sp4-el): 31.8 ml EF(MOD-sp4): 62.3 % EF(sp4-el): 60.7 % SV(sp4-el): 49.2 ml LA A4 area: 18.6 cm2 RA A4 area: 19.6 cm2 Doppler Measurements & Calculations MV E max devon: 152.6 cm/sec Lat Peak E' Devon: 6.3 cm/sec Med Peak E' Devon: 7.3 cm/sec MV A max devon: 141.3 cm/sec E/E' lat: 24.4 E/E' med: 20.9 MV E/A: 1.1 MV V2 max: 181.1 cm/sec MV P1/2t max devon: 178.2 cm/sec Ao V2 max: 149.3 cm/sec MV max P.1 mmHg MV P1/2t: 147.5 msec Ao max P.9 mmHg MV V2 mean: 120.6 cm/sec MV dec slope: 353.9 cm/sec2 MV mean P.3 mmHg MV V2 VTI: 67.0 cm MVA(P1/2t): 1.5 cm2 LV V1 max: 111.1 cm/sec PA V2 max: 108.8 cm/sec TR max devon: 224.8 cm/sec LV V1 max P.9 mmHg TR max P.2 mmHg ECHO/Echo Complete Interpretation Summary Status post mitral valve repair with annuloplasty ring. Normal LV size. Left ventricular systolic function is normal. The estimated ejection fraction is 60 %. Pulmonary artery systolic pressure is 24 mmHg. Stage 2 diastolic dysfunction. Ordering Physician: Rocky Nelson Referring Physician: Rocky Nelson Performed By: Roberta Alcantar RCS
== END | disposition home or self-care (01) ==
LOC: CVS 09:44
PROVIDERS: PCP Internal Medicine; Referring Provider Internal Medicine Cardiovascular Disease; Visit Provider Internal Medicine Cardiovascular Disease
DX: R01.1 Cardiac murmur, unspecified (principal); Z98.890 Other specified postprocedural states
CPT/HCPCS: 93306

== ENCOUNTER 2023-01-11 08:48 | Emergency (ER) | payer MEDICARE, OTHER, SELFPAY ==
[2023-01-11 08:50] VITALS: BP 149/80; PULSE 62; RESP 16; TEMP 36.4; O2SAT 100; BMI 23.1
[2023-01-11 09:18] LABS: Bedside Glucose 186 mg/dL (74-106)
--- NOTE | 2023-01-11 09:44 | EKG12_ITS ---
Test Reason : DIZZINESS Blood Pressure : / mmHG Vent. Rate : 054 BPM Atrial Rate : 000 BPM P-R Int : 000 ms QRS Dur : 094 ms QT Int : 426 ms P-R-T Axes : 000 091 078 degrees QTc Int : 403 ms Normal Sinus Rhythm Rightward axis Septal infarct , age undetermined Abnormal ECG Confirmed by SHERIN PEREZ, BAM ([id number]), web editor COLE TROTTER ([id number]) on 01/15/2023 12:55:13 PM Referred By: CHUCHO Confirmed By:BAM DUFF MD
--- NOTE | 2023-01-11 09:44 | CT_ITS ---
INDICATION: weakness EXAMINATION: CT BRAIN - CT Head or Brain W/O Contrast Injection TECHNIQUE: Multiple axial images were obtained of the head without intravenous contrast. A radiation dose optimization technique was used for this scan. IV Contrast dosage and agent: None. RADIATION DOSAGE (If Supplied By Facility): CTDIvol = ( 44.99 ) mGy, DLP = ( 812.98 ) mGycm COMPARISON: No relevant prior comparison study available FINDINGS: BRAIN PARENCHYMA: No intra- or extra-axial hemorrhage. No evidence of acute infarct. No intracranial mass or mass effect. There is preservation of the mcdowell/white matter interface. Posterior fossa structures are unremarkable. CSF SPACES: Appropriate for age. No hydrocephalus. Basal cisterns are patent. CALVARIUM, SKULL BASE, PARANASAL SINUSES AND MASTOID AIR CELLS: There is partial opacification of the ethmoid sinuses consistent with a history of sinusitis. No discrete lytic or blastic abnormalities. ORBITS: Both globes, extraocular muscles, optic nerves and retrobulbar fat appear unremarkable. ASPECTS Score for Acute Strokes: 10 CT/Brain/Head without Contrast IMPRESSION: No acute intracranial process. Electronically Signed: Kalina Montgomery MD at 10:45 EDT ,
--- NOTE | 2023-01-11 09:45 | EX.ED.DYSGE1 ---
HPI History of Present Illness Chief Complaint: Dizziness Informant: patient and spouse/S.O. Narrative Narrative: 77-year-old male presenting to the emergency room with generalized weakness. Patient states he woke this morning got up had breakfast and coffee. He was on his way into the bathroom for shower when he states that he felt profoundly weak all over. Most pronounced he felt that his left hand was weaker than any other part. He states it was not clumsy just seemed weak. He states that he felt drunk. He did not have a dizzy/spinning sensation. He did not experience any palpitations or chest pain/shortness of breath. No diaphoresis. Symptoms lasted approximately 45 minutes and he feels better. He did take 3 baby aspirin as well as a lorazepam as he was experiencing anxiety. He has a history of atrial fibrillation and is on Xarelto. He has had a history of mitral valve repair in 2000. He denies any change in vision speech or sensation. [facility] Medical History Atypical atrial flutter Depression Dyslipidemia Essential (primary) hypertension Hypersomnia, unspecified Myxomatous mitral valve regurgitation Nonobstructive atherosclerosis of coronary artery Nonrheumatic mitral (valve) prolapse Obstructive sleep apnea Paroxysmal atrial fibrillation Prostate cancer Home Medications lorazepam 0.5 mg tablet 0.25 tab PO DAILY PRN PRN Anxiety 10/06/13 [History Last Taken 04/22/17] multivitamin with folic acid 400 mcg tablet 1 tab PO DAILY 10/06/13 [History Last Taken 04/23/17] biotin 1 mg capsule 1 mg PO QDAY 07/05/17 [History Last Taken Unknown] bupropion HCl 300 mg 24 hr tablet, extended release 300 mg PO QAM 07/05/17 [History Last Taken Unknown] triamcinolone acetonide 55 mcg nasal spray aerosol (Nasacort) 2 spray intranasal QDAY 09/24/17 [History Last Taken Unknown] coenzyme Q10 100 mg capsule 100 mg PO DAILY 08/21/19 [History Last Taken Unknown] zinc 50 mg tablet 50 mg PO DAILY 08/23/20 [History Last Taken Unknown] rivaroxaban 20 mg tablet (Xarelto) 20 mg PO DAILY #30 tabs 02/05/22 [Rx Last Taken Unknown] biotin 5 mg capsule 5 mg PO DAILY 10/16/22 [History Last Taken Unknown] losartan 50 mg tablet 50 mg PO DAILY #90 tabs 11/06/22 [Rx Last Taken Unknown] atorvastatin 40 mg tablet See Rx Instructions .Route .COMPLEX #30 tabs 01/01/23 [Rx Last Taken Unknown] Allergy/AdvReac Type Severity Reaction Status Date / Time hydrocodone [From Vicodin] Allergy Mild Nausea Verified 01/11/23 08:50 oxycodone [From Percocet] AdvReac Intermediate nausea Verified 01/11/23 08:50 Family History Father , age 89 CAD (coronary artery disease) Hx of CABG, Onset Age: 68 Uncle CAD (coronary artery disease) Mother Alzheimers disease Surgical History H/O inguinal hernia repair H/O prostate biopsy H/O transurethral destruction of bladder lesion (10/2013) History of cardioversion (04/30/17) History of left heart catheterization (06/23/08) History of mitral valve repair (10/04/00) Hx of cataract surgery Left knee meniscus repair Macular hole repair PE Tube right ear Retinal detachment Social History household members: spouse housing: house current occupational status: employed current occupation: [employer] pets and animals: Yes pets and animals: dog(s) Smoking Status: Former smoker second hand exposure: No alcohol intake: current alcohol intake frequency: a few times a week Alcohol type: beer and wine substance use type: does not use ROS ROS ED Constitutional Constitutional ED: Denies chills, fever(s) or weight loss Eyes Eyes: Denies change in vision or diplopia ENT ENT ED: Denies ear pain, rhinorrhea or sore throat Cardiovascular Cardiovascular: Denies chest pain, orthopnea, palpitations or racing heartbeat Respiratory/Chest Respiratory/Chest: Denies cough, dyspnea or orthopnea Gastrointestinal Gastrointestinal: Denies abdominal pain, diarrhea, nausea or vomiting Genitourinary Genitourinary ED: Denies dysuria, hematuria or urinary frequency Musculoskeletal Musculoskeletal: Denies arthralgias, back pain, myalgias or neck pain Integumentary Denies abscess or rash Neurologic Neurologic: Reports other Details: Generalized weakness though greatest in left hand ; Denies headache(s) or paresthesias Psychiatric Psychiatric: Denies anxiety, depression, suicidal ideation or suicidal thoughts Endocrine Endocrinology: Denies polydipsia, polyphagia or polyuria Allergic/Immunologic Allergic/Immunologic ED: Denies mouth swelling, tongue swelling or urticaria EXAM Physical Exam Const Vital Signs: 01/11/23 08:50 01/11/23 09:17 01/11/23 10:22 Temperature 97.6 F L 98.3 F Temperature Source Temporal Oral Pulse Rate 62 57 L Respiratory Rate 16 12 Respiratory Effort Normal Respiratory Pattern Normal Blood Pressure 149/80 H 127/77 H Blood Pressure Mean 103 93 Pulse Ox 100 96 Oxygen Delivery Method Room Air Room Air Positive well nourished and well developed General Appearance ED: well developed HEENT Reports normocephalic, head/scalp atraumatic and moist mucous membranes Eyes PERRL and EOMs intact bilaterally Neck no lymphadenopathy, supple and no JVD Resp normal respiratory effort and clear to auscultation bilaterally Cardio regular rate, regular rhythm and no murmurs GI normal to inspection, nondistended, normoactive bowel sounds and non-tender Palpation: soft Back/Spine no CVA tenderness and normal ROM Extremity normal to inspection General Extremety ED: Negative for edema General Extremity: Negative for edema Neuro oriented x3, CN's II-XII intact bilaterally and no sensory deficits noted Neuro Narrative: NIH score 0 Patient is able to ambulate on his own to the bathroom. Sensorium / Orientation: alert Sensory Exam: No sensory level loss detected Motor Exam: strength 5/5 throughout Psych mental status grossly normal Mood & Affect: Negative for depressed or tearful Skin no rashes or lesions noted and no wounds MDM MDM MDM Narrative Medical decision making narrative: Basic blood work obtained and rather unremarkable. Glucose slightly elevated at 175. CT of the brain shows no hemorrhage. My interpretation of the chest x-ray is no acute process. EKG appears to be a sinus rhythm in the 50s. Patient was observed walking. Did not appear to have any difficulty with it but he states he feels that it is hard for him to lift his feet up off the ground almost like a shuffling gait. CT a of the head and neck was obtained which shows minimal carotid disease no dissection or acute clots or aneurysms. Patient hand continues to have 5 out of 5 strength with no change in sensation. At this point I do not see a clear etiology for symptoms. His NIH was 0 upon arrival it is still 0. He does not appear ataxic on finger-nose [id number] or with ambulation. He is anticoagulated and in a sinus rhythm. Minimal carotid disease. I do not hear any new murmurs. At this point patient is comfortable being discharged. He will follow-up with his doctor return if any concern concerns or worsening. Lab Data Attestation: I reviewed the patient's lab results. Labs: Laboratory Results - last 24 hr 01/11/23 01/11/23 09:01 09:05 WBC 6.5 RBC 4.68 Hgb 14.3 Hct 44.1 MCV 94.2 H MCH 30.6 MCHC 32.4 RDW Std Deviation 45.1 H RDW Coeff of Mery 13.2 Plt Count 275 MPV 9.2 Immature Gran % (Auto) 0.500 Neut % (Auto) 59.7 Lymph % (Auto) 26.3 Hudspeth % (Auto) 7.5 Eos % (Auto) 5.2 H Baso % (Auto) 0.8 Absolute Neuts (auto) 3.9 Absolute Lymphs (auto) 1.72 Nucleated RBC % 0 PT 19.2 H INR 1.6 APTT 33.1 Sodium 140 Potassium 4.0 Chloride 107 Carbon Dioxide 30.0 Anion Gap 3 L BUN 12 Creatinine 0.92 Estim Creat Clear Calc 64.86 Est GFR (MDRD) Af Amer 103 Est GFR (MDRD) Non-Af 85 BUN/Creatinine Ratio 13.1 Glucose 175 H Calcium 8.7 Total Bilirubin 0.40 AST 19 ALT 38 Alkaline Phosphatase 116 Troponin I High Sens 8 Total Protein 6.0 L Albumin 3.5 Globulin 2.5 Albumin/Globulin Ratio 1.4 POC Glucose 186 H Radiography Diagnostic Testing: Clinical Impression(s) from Imaging Studies Brain CT 01/11/23 09:44 IMPRESSION: No acute intracranial process. Electronically Signed: Kalina Montgomery MD at 10:45 EDT , Chest X-Ray 01/11/23 10:05 IMPRESSION: No radiographic evidence of acute cardiopulmonary disease. Electronically Signed: Kalina Montgomery MD at 10:42 EDT , Head/Neck CTA 01/11/23 11:43 IMPRESSION: Minimal calcific plaque is seen at the origin of the left and right internal carotid arteries. Electronically Signed: Jermaine Murphy MD at 14:44 EDT , EKG Initial EKG: Attestation: I personally reviewed and interpreted this EKG as follows: Comments: Sinus rhythm ventricular rate of 54 bpm. No concerning features of ACS noted Discharge Plan Triage Chief Complaint: Dizziness ED Provider: Volodymyr Mccall Dx/Rx/DC Orders Clinical Impression: Essential (primary) hypertension, Weakness, Paroxysmal atrial fibrillation Instructions: ED Weakness (Uncertain Cause) Prescriptions: No Action bupropion HCl 300 mg tablet extended release 24 hr 300 mg PO QAM biotin 1 mg capsule 1 mg PO QDAY triamcinolone acetonide [Nasacort] 55 mcg aerosol,spray 2 spray INTRANASAL QDAY coenzyme Q10 100 mg capsule 100 mg PO DAILY zinc 50 mg tablet 50 mg PO DAILY biotin 5 mg capsule 5 mg PO DAILY lorazepam 0.5 MG tablet 0.25 tab PO DAILY PRN PRN (Reason: Anxiety) Patient Comments: ANXIETY multivitamin with folic acid 1 TABLET tablet 1 tab PO DAILY Patient Comments: vitamin supplement Xarelto 20 mg tablet 20 mg PO DAILY Qty: 30 11RF losartan 50 mg tablet 50 mg PO DAILY Qty: 90 3RF atorvastatin 40 mg tablet See Rx Instructions .ROUTE .COMPLEX Qty: 30 5RF Dose Instruction: TAKE 1 TABLET BY MOUTH AT BEDTIME Rx Instructions: TAKE 1 TABLET BY MOUTH AT BEDTIME Primary Care Provider: Lucía Peña Referrals: Lucía Peña MD [Primary Care Provider] - 1 Week Disposition Disposition: Home, Self Care
--- NOTE | 2023-01-11 10:05 | RAD_ITS ---
INDICATION: hypertension EXAMINATION/TECHNIQUE: X-RAY - XR Chest 1 View COMPARISON: April 23, 2017 FINDINGS: LINES/DEVICES: None. LUNGS: No consolidation, edema or effusion. No pneumothorax. MEDIASTINUM AND CARDIOVASCULAR STRUCTURES: There are sternotomy wires in place. Cardiac silhouette not enlarged. Central airways and mediastinal contour are unremarkable. BONES AND SOFT TISSUES: Unremarkable. RAD/Chest 1 View (Portable) IMPRESSION: No radiographic evidence of acute cardiopulmonary disease. Electronically Signed: Kalina Montgomery MD at 10:42 EDT ,
[2023-01-11 10:07] LABS: Absolute Lymphocyte Count 1.72 X10^3/uL (0.83-4.51); Absolute Neutrophil Count 3.9 X10^3/uL (2.0-7.7); Basophil# 0.05 X10^3/uL; Basophil% 0.8 % (0-1); Eosinophil# 0.34 X10^3/uL; Eosinophils% 5.2 % (0-5); Hematocrit 44.1 % (40-54); Hemoglobin 14.3 g/dL (13.0-16.5); Lymphocyte # 1.72 X10^3/ul (0.83-4.51); Lymphocyte % 26.3 % (19-41); Mean Corp Hgb Conc 32.4 g/dL (32-36); Mean Corpuscular Hgb 30.6 pg (27.0-32.0); Mean Corpuscular Volume 94.2 fL (80-94); Mean Platelet Vol. 9.2 fl (6.2-12.0); Monocyte# 0.49 X10^3/uL; Monocyte% 7.5 % (0-10); NRBC Flagged by Analyzer 0 % (0-5); Neutrophil % 59.7 % (47-70); Platelet Count 275 K/mm3 (150-450); RBC Distribution Width CV 13.2 % (11.6-14.6); RBC Distribution Width SD 45.1 fl (35.1-43.9); Red Blood Count 4.68 M/mm3 (4.6-6.2); White Blood Count 6.5 K/mm3 (4.4-11.0)
[2023-01-11 10:22] VITALS: BP 127/77; PULSE 57; RESP 12; TEMP 36.8; O2SAT 96
[2023-01-11 10:23] LABS: International Normalized Ratio 1.6; Prothrombin Time (Protime)PT. 19.2 SECONDS (11.7-14.9)
[2023-01-11 10:26] LABS: ALB/GLOB Ratio 1.4 RATIO (0.9-2.4); AST(SGOT) 19 U/L (15-37); Alanine Aminotransfer ALT/SGPT 38 U/L (16-61); Albumin, Serum 3.5 g/dL (3.2-5.0); Alkaline Phosphatase 116 U/L (45-117); Anion Gap 3 (5-15); BUN 12 mg/dL (7-18); BUN/Creat Ratio 13.1 RATIO (10-20); Calcium,Total 8.7 mg/dL (8.5-10.1); Chloride 107 mmol/L (98-107); Creatinine, Serum 0.92 mg/dL (0.70-1.30); EST Glomerular Filtration Rate 85 mL/min (>60); Est Glom Filt Rate - Afr Amer 103 mL/min (>60); Estimated Creatinine Clearance 64.86 ml/min; Globulin 2.5 g/dL (2.2-4.2); Glucose 175 mg/dL (74-106); Sodium Level 140 mmol/L (136-145); Troponin-I HS 8 pg/mL (3.0-78.0)
[2023-01-11 10:38] LABS: Partial Thromboplast Time 33.1 Seconds (24.1-36.2)
--- NOTE | 2023-01-11 11:27 | CM.ED ---
Social Work SW performed chart review; LW on file as of 2006. SW met with patient and patient's and introduced self and role as [facility] SW. Patient agreeable to speak to with patient's present. SW inquired about completion of HCPOA documents and informed patient [facility] has a copy of patient's LW. Patient reports his HCPOA document was completed and names patient's , Barrera as HCPOA. Patient unable to recall if alternates were listed. SW encouraged patient to provide a copy to [facility] to be added to patient's chart; patient agreeable. Patricia Mark CORE MACHINE TENDER, BHAVYA
--- NOTE | 2023-01-11 11:43 | CT_ITS ---
STUDY: CTA HEAD AND NECK WITH CONTRAST REASON FOR EXAM: Male, 77 years old. Stroke. Dizziness and left arm heaviness. Hypertension. RADIATION DOSAGE (If Supplied By Facility): CTDIvol = ( 23.33 ) mGy, DLP = ( 748.58 ) mGycm TECHNIQUE: CT angiography was performed with a multi-detector CT scanner. Data acquisition was obtained from the skull base through the vertex following intravenous administration of IV 100mL [id number]-[id number]. MIP images were reconstructed from the axial data set. Post-processing of the angiographic images was performed, with multiplanar reformation and 3D reconstruction. Individualized dose optimization techniques were used for this CT. COMPARISON: No relevant priors. FINDINGS: Normal bilateral petrous carotid arteries. There is calcified plaque formation of the right cavernous carotid artery, without a cross-sectional luminal stenosis. There is calcified plaque formation of the left cavernous carotid artery, without a cross-sectional luminal stenosis. Normal right A1 segments of the anterior cerebral artery. Normal left A1 segments of the anterior cerebral artery. Normal intact anterior communicating artery (ACOM). Normal bilateral A2 segments of the anterior cerebral arteries. Normal right M1 and M2 segments of the middle cerebral arteries, with a normal M1 bifurcation. Normal left M1 and M2 segments of the middle cerebral arteries, with a normal M1 bifurcation. Normal right posterior communicating artery (PCOM). Normal left posterior communicating artery (PCOM). Normal bilateral vertebral arteries. Normal basilar artery with a normal basilar bifurcation. The visualized bilateral superior cerebellar (SCA) arteries are normal. Normal bilateral P1, P2 and visualized P3 segments of the posterior cerebral arteries. There is no demonstrated aneurysm of the [place] of [place]. AORTIC ARCH: There is atherosclerotic calcific plaque formation of the aortic arch and great vessels arising from the aortic arch, without a hemodynamically significant stenosis. There is a normal origin of the brachiocephalic, left common carotid, and left subclavian arteries. Mild atherosclerotic plaque formation at the origin of the left subclavian artery. Prior CABG. RIGHT CAROTID ARTERIES: Normal right common carotid artery (CCA). Normal right common carotid bulb. Minimal plaque calcification at the origin of the right internal carotid artery. Normal visualized cervical portion of the right internal carotid artery. Normal origin of the right external carotid artery (ECA). LEFT CAROTID ARTERIES: Normal left common carotid artery (CCA). Normal left common carotid bulb. Minimal atherosclerotic calcific plaque at the origin of the left internal carotid artery. Normal visualized cervical portion of the left internal carotid artery. Normal origin of the left external carotid artery (ECA). VERTEBRAL ARTERIES: Normal bilateral vertebral arteries. CT/CTA Head AND Neck W/ Contrast IMPRESSION: Minimal calcific plaque is seen at the origin of the left and right internal carotid arteries. Electronically Signed: Jermaine Murphy MD at 14:44 EDT ,
[2023-01-11 15:15] VITALS: BP 135/77; PULSE 62; RESP 15; O2SAT 98
== END 2023-01-11 15:16 | disposition home or self-care (01) ==
PROVIDERS: Emergency Provider Emergency Medicine; PCP Internal Medicine; Visit Provider Emergency Medicine
DX: I10 Essential (primary) hypertension (principal); I48.0 Paroxysmal atrial fibrillation; R53.1 Weakness; I25.10 Atherosclerotic heart disease of native coronary artery without angina pectoris; Z79.01 Long term (current) use of anticoagulants; Z79.899 Other long term (current) drug therapy; Z87.891 Personal history of nicotine dependence
CPT/HCPCS: 70450; 70496; 70498; 71045; 80053; 82962; 84484; 85025; 85610; 85730; 93005; 99284; Q9967; A4216

== ENCOUNTER 2024-03-30 18:12 | Emergency (ER) | payer MEDICARE, OTHER, SELFPAY ==
[2024-03-30] VITALS (23 sets, daily range): BP systolic 92–128; BP diastolic 81–106; PULSE 114–123; RESP 14–29; TEMP 36.4–37.2; O2SAT 94–100; BMI 23.3
--- NOTE | 2024-03-30 18:34 | EKG12_ITS ---
Test Reason : DYSRHYTHMIA Blood Pressure : */* mmHG Vent. Rate : 119 BPM Atrial Rate : 119 BPM P-R Int : 294 ms QRS Dur : 82 ms QT Int : 184 ms P-R-T Axes : 61 97 244 degrees QTcB Int : 258 ms Sinus tachycardia with 1st degree A-V block Possible Left atrial enlargement Rightward axis Septal infarct ST & T wave abnormality, consider inferior ischemia Abnormal ECG Confirmed by SHERIN PEREZ, BAM ([id number]), industrial editor ROE LARA ([id number]) on 04/02/2024 2:24:46 PM Referred By: Confirmed By: BAM DUFF MD
--- NOTE | 2024-03-30 18:34 | RAD_ITS ---
STUDY: X-RAY CHEST REASON FOR EXAM: Male, 78 years old. chest pain TECHNIQUE: Single frontal view of the chest. COMPARISON: January 11, 2033 FINDINGS: Sternotomy wires. Lungs are hyperaerated. The lungs are clear and expanded. There is no demonstrated pleural abnormality. Normal size heart. Normal mediastinum and son. Normal visualized pulmonary arteries. Normal visualized aortic arch and descending thoracic aorta. Mild dextroconvex scoliosis. Normal visualized ribs, clavicles, and shoulders. There is no demonstrated abnormality of the visualized soft tissue structures of the upper abdomen. RAD/Chest 1 View (Portable) IMPRESSION: COPD. Sternotomy. No acute disease. Electronically Signed: Chandler Rodriguez MD at 20:16 EST ,
[2024-03-30 19:18] LABS: Anion Gap 4 (5-15); BUN 15 mg/dL (7-18); BUN/Creat Ratio 16.7 RATIO (10-20); Calcium,Total 9.1 mg/dL (8.5-10.1); Chloride 108 mmol/L (98-107); EST Glomerular Filtration Rate 87 mL/min (>60); Est Glom Filt Rate - Afr Amer 106 mL/min (>60); Estimated Creatinine Clearance 65.28 ml/min; Glucose 113 mg/dL (74-106); International Normalized Ratio 1.1; Sodium Level 142 mmol/L (136-145); Troponin-I HS (w/2H Reflex) 15 pg/mL (3.0-78.0)
--- NOTE | 2024-03-30 19:58 | EX.ED.DYSGE1 ---
HPI History of Present Illness Chief Complaint: Palpitations Informant: patient Narrative Narrative: Patient is a 78-year-old male with history of atypical atrial flutter/proximal atrial fibrillation (was cardioverted previously does not been A-fib since as far as he is aware), dyslipidemia and prostate cancer as well as mitral valve repair presenting with tachycardia and and laryngitis. Patient states 5 days ago he started noticing that his voice was hoarse and is having a postnasal drip. On Saturday, 2 days ago he noticed that his heart rate was 111. He thought maybe he is back in atrial fibrillation. He is currently not on any rate control medication as he did not tolerate beta-blockers and his heart rate was going too low on calcium channel blockers. He notes that he has been having a cough at night that is dry and nonproductive. Denies any fevers. Denies any shortness of breath but states he does feel little bit more winded when talking. Denies any dyspnea on exertion. Denies any chest pain or tightness. Denies any nausea vomiting, urine nation changes, abdominal pain or changes bowel movements. He is on Xarelto chronically. Denies feeling lightheaded. Denies any swelling of his legs. No sick contacts reported but does have grandchildren. No other complaints or concerns reported at this time. [facility] Medical History Nonobstructive atherosclerosis of coronary artery Myxomatous mitral valve regurgitation Nonrheumatic mitral (valve) prolapse Atypical atrial flutter Prostate cancer Paroxysmal atrial fibrillation Essential (primary) hypertension Obstructive sleep apnea Hypersomnia, unspecified Depression Dyslipidemia Home Medications ?Medication ?Instructions ?Recorded ?Last Taken ?Type lorazepam 0.5 mg tablet 0.25 tab PO DAILY PRN PRN Anxiety 10/06/13 04/22/17 History multivitamin with folic acid 400 1 tab PO DAILY 10/06/13 04/23/17 History mcg tablet biotin 1 mg capsule 1 mg PO QDAY 07/05/17 Unknown History bupropion HCl 300 mg 24 hr tablet, 300 mg PO QAM 07/05/17 Unknown History extended release triamcinolone acetonide 55 mcg 2 spray intranasal QDAY 09/24/17 Unknown History nasal spray aerosol (Nasacort) coenzyme Q10 100 mg capsule 100 mg PO DAILY 08/21/19 Unknown History zinc 50 mg tablet 50 mg PO DAILY 08/23/20 Unknown History biotin 5 mg capsule 5 mg PO DAILY 10/16/22 Unknown History atorvastatin 40 mg tablet 40 mg PO QHS #90 TABLETS 11/04/23 Unknown Rx losartan 50 mg tablet 50 mg PO DAILY #90 tabs 01/08/24 Unknown Rx rivaroxaban 20 mg tablet (Xarelto) 20 mg PO DAILY #90 tabs 02/14/24 Unknown Rx metoprolol tartrate 25 mg tablet 25 mg PO BID #60 tabs 03/30/24 Unknown Rx Allergy/AdvReac Type Severity Reaction Status Date / Time hydrocodone (From Vicodin) Allergy Mild Nausea Verified 12/12/23 10:00 oxycodone (From Percocet) AdvReac Intermediate nausea Verified 12/12/23 10:00 Family History Father , age 89 CAD (coronary artery disease) Hx of CABG, Onset Age: 68 Uncle CAD (coronary artery disease) Mother Alzheimers disease Surgical History H/O transurethral destruction of bladder lesion (10/2013) History of cardioversion (04/30/17) History of left heart catheterization (06/23/08) Macular hole repair Hx of cataract surgery Retinal detachment PE Tube right ear H/O prostate biopsy Left knee meniscus repair H/O inguinal hernia repair History of mitral valve repair (10/04/00) Social History household members: spouse housing: house current occupational status: employed current occupation: [employer] pets and animals: Yes pets and animals: dog(s) Smoking Status: Former smoker second hand exposure: No alcohol intake: current alcohol intake frequency: a few times a week Alcohol type: beer and wine substance use type: does not use ROS ROS ED Constitutional Constitutional ED: Denies chills or fever(s) ENT ENT ED: Reports sore throat and other Details: Hoarse voice Cardiovascular Cardiovascular: Reports racing heartbeat; Denies chest pain Respiratory/Chest Respiratory/Chest: Reports cough; Denies dyspnea or dyspnea on exertion Gastrointestinal Gastrointestinal: Denies abdominal pain, melena, nausea or vomiting Genitourinary Genitourinary ED: Denies dysuria Musculoskeletal Musculoskeletal: Denies arthralgias or myalgias Integumentary Denies rash Neurologic Neurologic: Denies paresthesias or weakness Hematologic/Lymphatic Hematologic/Lymphatic: Reports easy bleeding, easy bruising and other Details: On Xarelto EXAM Physical Exam Const Vital Signs: 03/30/24 18:13 03/30/24 18:34 03/30/24 18:35 Temperature 97.5 F L Temperature Source Temporal Pulse Rate 119 H 119 H Respiratory Rate 16 19 H Blood Pressure 126/106 H Blood Pressure Mean 112 Pulse Ox 100 Oxygen Delivery Method Room Air Room Air 03/30/24 18:45 03/30/24 19:00 03/30/24 19:15 Temperature Temperature Source Pulse Rate 119 H 120 H 123 H Respiratory Rate 28 H 27 H 21 H Blood Pressure 128/88 H Blood Pressure Mean 96 Pulse Ox 94 Oxygen Delivery Method Room Air 03/30/24 19:30 03/30/24 19:45 03/30/24 19:53 Temperature 99 F Temperature Source Oral Pulse Rate 118 H 121 H 119 H Respiratory Rate 25 H 24 H Blood Pressure 123/87 H 123/87 H Blood Pressure Mean 92 99 Pulse Ox 99 Oxygen Delivery Method Room Air 03/30/24 20:00 03/30/24 20:15 03/30/24 20:30 Temperature Temperature Source Pulse Rate 118 H 120 H 118 H Respiratory Rate 23 H 19 H 22 H Blood Pressure 120/91 H 123/90 H Blood Pressure Mean 99 102 Pulse Ox 94 98 Oxygen Delivery Method Room Air Room Air 03/30/24 20:45 03/30/24 21:00 03/30/24 21:00 Temperature Temperature Source Pulse Rate 120 H 119 H 118 H Respiratory Rate 25 H 24 H 24 H Blood Pressure 127/91 H 127/91 H Blood Pressure Mean 103 101 Pulse Ox 96 95 Oxygen Delivery Method Room Air Room Air 03/30/24 21:15 03/30/24 21:30 03/30/24 21:32 Temperature Temperature Source Pulse Rate 120 H 116 H 116 H Respiratory Rate 28 H 18 Blood Pressure 114/87 H 114/87 H Blood Pressure Mean 96 96 Pulse Ox 96 Oxygen Delivery Method Room Air 03/30/24 21:45 03/30/24 22:00 03/30/24 22:00 Temperature Temperature Source Pulse Rate 116 H 115 H Respiratory Rate 14 21 H Blood Pressure 92/81 H Blood Pressure Mean 86 Pulse Ox Oxygen Delivery Method 03/30/24 22:15 03/30/24 22:25 03/30/24 22:30 Temperature Temperature Source Pulse Rate 115 H 114 H 115 H Respiratory Rate 29 H 22 H 26 H Blood Pressure 125/90 H 113/86 H Blood Pressure Mean 100 95 Pulse Ox 95 96 Oxygen Delivery Method Room Air Room Air 03/30/24 22:45 03/30/24 23:00 Temperature Temperature Source Pulse Rate 114 H 114 H Respiratory Rate 20 H 20 H Blood Pressure 116/87 H Blood Pressure Mean 97 Pulse Ox 94 Oxygen Delivery Method Room Air Positive well nourished and well developed General Appearance ED: well developed and NAD HEENT Reports moist mucous membranes HEENT Narrative: Cerumen impactions present. Normal nares. Mild injection of the posterior oropharynx. Normal tonsils with no exudate or enlargement present. Eyes PERRL Neck supple Neck Narrative: + JVD Chest Wall inspection of chest normal and palpation of chest normal Resp normal respiratory effort and clear to auscultation bilaterally Auscultation: Negative for rhonchi or wheezes Cardio regular rhythm Rate: tachycardic GI normal to inspection, nondistended, normoactive bowel sounds and non-tender Extremity normal to inspection General Extremety ED: Negative for edema General Extremity: Negative for edema Neuro oriented x3 Sensorium / Orientation: alert Motor Exam: Negative for general weakness Psych mental status grossly normal Skin no rashes or lesions noted and no wounds MDM MDM MDM Narrative Medical decision making narrative: Patient evaluated for elevated heart rate. Also notes that he has had hoarse voice and cough for couple days. Differential includes atrial fibrillation, sinus tachycardia, thyroid storm, CHF, infection and myocarditis/pericarditis as well as dehydration. Patient overall is well-appearing. He is largely asymptomatic. He is tachycardic. EKG is sinus tachycardia with first-degree AV block and a rightward axis however I question if it is actually atrial flutter with 2 1 conduction. Patient is given some IV fluids and Tylenol as he is also reporting reported infectious symptoms. No significant change in his heart rate. Workup largely normal including chest x-ray, CBC, BMP, delta high sensitive troponin and TSH. COVID flu RSV swab is negative. Patient is given a dose of IV metoprolol with only minimal improvement of his heart rate. I discussed the case with cardiology, Dr. Nelson, who is in agreement that patient likely is in recurrent atrial fibrillation versus flutter. We discussed cardioversion I did offer to the patient. Patient is not confident that he has been 100% compliant with his Xarelto and would like to defer until he either knows that he has been completely compliant or can have a YURIDIA. He does not require admission as he is minimally symptomatic. Will start the patient on Toprol 25 mg twice daily. Is given additional 2 doses of IV metoprolol with some minor improvement of his rate. Is given first dose of Toprol in the emergency room. Patient is given return precautions. Patient and verbalized agreement or stands plan. Discharged home in stable condition. History & Record Review Additional record(s) reviewed:: Prior outpatient record (Cardiology note) Lab Data Attestation: I reviewed the patient's lab results. Labs: Laboratory Results - last 24 hr 03/30/24 03/30/24 18:29 20:42 WBC 10.1 RBC 4.91 Hgb 15.1 Hct 45.3 MCV 92.3 MCH 30.8 MCHC 33.3 RDW Std Deviation 45.0 H RDW Coeff of Mery 13.2 Plt Count 320 MPV 8.9 Immature Gran % (Auto) 0.300 Neut % (Auto) 64.6 Lymph % (Auto) 21.9 Norton % (Auto) 10.4 H Eos % (Auto) 2.2 Baso % (Auto) 0.6 Absolute Neuts (auto) 6.5 Absolute Lymphs (auto) 2.21 Nucleated RBC % 0 PT 14.0 INR 1.1 Sodium 142 Potassium 4.0 Chloride 108 H Carbon Dioxide 30.0 Anion Gap 4 L BUN 15 Creatinine 0.90 Estim Creat Clear Calc 65.28 Est GFR (MDRD) Af Amer 106 Est GFR (MDRD) Non-Af 87 BUN/Creatinine Ratio 16.7 Glucose 113 H Calcium 9.1 Troponin I High Sens 15 16 B-Natriuretic Peptide 96.8 TSH 1.470 Radiography Chest X-Ray - ED: 2 View, Read by ED Physician, Read by Radiologist and No Acute Disease Diagnostic Testing: Clinical Impression(s) from Imaging Studies Chest X-Ray 03/30/24 18:34 IMPRESSION: COPD. Sternotomy. No acute disease. Electronically Signed: Chandler Rodriguez MD at 20:16 EST Reading Location ID and State: [address] [place] [address] Tel , Service support , Rhythm Strip Rhythm Strip: A-fib Rate: 119 Ectopy: None EKG Initial EKG: Attestation: I personally reviewed and interpreted this EKG as follows: Interpretation: Atrial Fibrillation Comments: Atrial fibrillation at a rate of 119 bpm [address] axis Subtle ST changes in inferior leads, likely rate related Prior EKG tracings: available for review Prior: Unchanged Differential Diagnosis Chest pain/SOB: pulmonary embolism Reason(s) PE less likely: Positive for not hypoxic and patient taking oral anticoagulants, ACS ACS: Positive for no evidence of ACS based on cardiac biomarkers and history not suggestive of ischemia pain, pneumonia Reason(s) pneumonia less likely: Positive for no infiltrate on CXR, no elevation in WBC count and no noted fever and CHF Reason(s) CHF less likely: Positive for no significant peripheral edema, no orthopnea, no evidence of fluid overload on CXR and BtNP not significantly elevated over normal/baseline Management Discussion w/another healthcare provider: Private Equity Analyst (Cardiology) Critical Care Time Critical Care Time: Yes Critical care time (excluding procedures): 30-74 minutes (32), Discussing w/Patient &/or Family/Airplane Flight Attendant, Discussing w/Consultants and - (Multiple doses of IV metoprolol) Discharge Plan Triage Chief Complaint: Palpitations ED Provider: Jeannie Lamb Dx/Rx/DC Orders Clinical Impression: Atypical atrial flutter Instructions: ED AFIB Prescriptions: New metoprolol tartrate 25 mg tablet 25 mg PO BID Qty: 60 0RF No Action bupropion HCl 300 mg tablet extended release 24 hr 300 mg PO QAM biotin 1 mg capsule 1 mg PO QDAY triamcinolone acetonide [Nasacort] 55 mcg aerosol,spray 2 spray INTRANASAL QDAY coenzyme Q10 100 mg capsule 100 mg PO DAILY zinc 50 mg tablet 50 mg PO DAILY biotin 5 mg capsule 5 mg PO DAILY lorazepam 0.5 MG tablet 0.25 tab PO DAILY PRN PRN (Reason: Anxiety) Patient Comments: ANXIETY multivitamin with folic acid 1 TABLET tablet 1 tab PO DAILY Patient Comments: vitamin supplement atorvastatin 40 mg tablet 40 mg PO QHS Qty: 90 3RF losartan 50 mg tablet 50 mg PO DAILY Qty: 90 8RF Xarelto 20 mg tablet 20 mg PO DAILY Qty: 90 3RF Rx Instructions: must administer with evening meal Primary Care Provider: Lucía Peña Referrals: Rocky Nelson MD [Med Staff - Active Staff] - As soon as possible Lucía Peña MD [Primary Care Provider] - Activity Restrictions/Additional Instructions: Your workup was remarkable for atrial fibrillation but no signs of stress on the heart or other underlying cause. Since we are not sure if you have been completely compliant with your Xarelto we did not perform cardioversion today. In the meantime we will perform rate control with metoprolol and have you continue taking your Xarelto daily. Please follow-up with Dr. Nelson's office in the next week or 2 so they can arrange outpatient cardioversion. Print Language: Frisian Disposition Disposition: Home, Self Care
[2024-03-30] MEDS: 0.9% Normal Saline (500mL Bag) 500 ML 999 ML IV (20:08)
[2024-03-30 20:16] LABS: Absolute Lymphocyte Count 2.21 X10^3/uL (0.83-4.51); Absolute Neutrophil Count 6.5 X10^3/uL (2.0-7.7); Basophil# 0.06 X10^3/uL; Basophil% 0.6 % (0-1); Eosinophil# 0.22 X10^3/uL; Eosinophils% 2.2 % (0-5); Hematocrit 45.3 % (40-54); Hemoglobin 15.1 g/dL (13.0-16.5); Lymphocyte # 2.21 X10^3/ul (0.83-4.51); Lymphocyte % 21.9 % (19-41); Mean Corp Hgb Conc 33.3 g/dL (32-36); Mean Corpuscular Hgb 30.8 pg (27.0-32.0); Mean Corpuscular Volume 92.3 fL (80-94); Mean Platelet Vol. 8.9 fl (6.2-12.0); Monocyte# 1.05 X10^3/uL; Monocyte% 10.4 % (0-10); NRBC Flagged by Analyzer 0 % (0-5); Neutrophil # 6.54 X10^3/uL (2.7-7.7); Neutrophil % 64.6 % (47-70); Platelet Count 320 K/mm3 (150-450); RBC Distribution Width CV 13.2 % (11.6-14.6); Red Blood Count 4.91 M/mm3 (4.6-6.2); White Blood Count 10.1 K/mm3 (4.4-11.0)
[2024-03-30 20:38] LABS: BNP,B-Type NATRIURETIC PEPTIDE 96.8 pg/mL (0-100)
[2024-03-30 20:54] LABS: Reflex Troponin-HS? (from REC) Y
[2024-03-30] MEDS: Metoprolol Tartrate 5 MG/5 ML Vial IV ×3 (21:12→23:02)
[2024-03-30 21:16] LABS: Troponin-I HS 16 pg/mL (3.0-78.0)
--- NOTE | 2024-03-30 23:42 | ED.RN ---
order for Lopressor 5mg x4 clarified w/ C. Zainab. Response, give total of 15 mg in 3 separate 5mg doses. He will go home with script and follow-up with Omar. Last 5mg not given see MAR.
[2024-03-31] VITALS: BP 118/67; PULSE 112; RESP 16; TEMP 36.8; O2SAT 100
[2024-03-31] MEDS: Metoprolol Tartrate 25 MG Tablet PO (00:03)
== END 2024-03-31 00:15 | disposition home or self-care (01) ==
PROVIDERS: Emergency Provider Emergency Medicine; PCP Internal Medicine; Visit Provider Emergency Medicine
DX: I48.4 Atypical atrial flutter (principal); I10 Essential (primary) hypertension; E78.5 Hyperlipidemia, unspecified; I25.10 Atherosclerotic heart disease of native coronary artery without angina pectoris; G47.33 Obstructive sleep apnea (adult) (pediatric); Z79.899 Other long term (current) drug therapy; Z87.891 Personal history of nicotine dependence; Z79.01 Long term (current) use of anticoagulants
CPT/HCPCS: 71045; 80048; 83880; 84443; 84484; 85025; 85610; 87631; 93005; 96361; 96374; 96376; 99284; A4216

== ENCOUNTER → 2024-04-06 | Day surgery (SDC) | payer MEDICARE, OTHER, SELFPAY ==
--- NOTE | 2024-04-02 11:17 | HP.PCM_ITS ---
History and Physical RYLEY MCKEON, is a 78M who presents to the office today for an updated HPI for a YURIDIA/DCCV. He has a history of mitral valve disease status post mitral valve repair for mitral valve prolapse in 2000 at the [facility]. He had presented a while ago with atrial flutter for which she underwent YURIDIA guided cardioversion and repeat cardioversion. 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 He sought the EP doctors at [facility] and it was decided to pursue expectant therapy. He has done well since. He did have an echocardiogram performed in 2021 which demonstrated stable ejection fraction of 60% and stable status post mitral valve repair with an annuloplasty ring. He has been on anticoagulation has done well denied any further chest pain or shortness of breath or paroxysmal nocturnal dyspnea or pedal edema he parks s not had any arrhythmias. Patient was seen in the emergency room on March 30, 2024 with atrial fibrillation. He does not tolerated rate limiting medications. Because of this he will undergo a YURIDIA then a cardioversion. [facility] Medical History Nonobstructive atherosclerosis of coronary artery Myxomatous mitral valve regurgitation Nonrheumatic mitral (valve) prolapse Atypical atrial flutter Prostate cancer Paroxysmal atrial fibrillation Essential (primary) hypertension Obstructive sleep apnea Hypersomnia, unspecified Depression Dyslipidemia Surgical History H/O transurethral destruction of bladder lesion (10/2013) History of cardioversion (04/30/17) History of left heart catheterization (06/23/08) Macular hole repair Hx of cataract surgery Retinal detachment PE Tube right ear H/O prostate biopsy Left knee meniscus repair H/O inguinal hernia repair History of mitral valve repair (10/04/00) Family History Father , age 89 CAD (coronary artery disease) Hx of CABG, Onset Age: 68 Uncle CAD (coronary artery disease) Mother Alzheimers disease Social History household members: spouse housing: house current occupational status: employed current occupation: [employer] pets and animals: Yes pets and animals: dog(s) Smoking Status: Former smoker second hand exposure: No alcohol intake: current alcohol intake frequency: a few times a week Alcohol type: beer and wine substance use type: does not use ROS Const Const: Negative for fatigue, weakness, headache(s), daytime sleepiness or difficulty sleeping ENT ENT: Negative for headache(s), dizziness or Nosebleed/epistaxis Cardio Chest Pain: No Palpitations: Yes (very seldom - lasts seconds) Edema: None Resp Respiratory: Negative for SOB with activity, SOB at rest, SOB orthopnea\SOB lying down or Cough GI GI: Negative nausea, vomiting or heartburn Neuro Neuro: Negative for dizziness, lightheadedness, near syncope, headache(s) or weakness Endo Endo: Negative for fatigue Cardiology Exam Const Appearance: cooperative, healthy appearing, no acute distress, well developed and well groomed Nutritional Appearance: average body habitus and well nourished Orientation: alert, awake and oriented x3 Head Head: normal to inspection, normocephalic and atraumatic Ears: hearing grossly normal bilaterally and external ears normal Nose: external nose normal, nares normal, nasal mucous membranes and turbinates normal, septum normal and no nasal discharge Face and Sinus: face symmetric Mouth: oral mucosae normal, tongue normal, oropharynx normal and moist mucous membranes Teeth and gingiva: dentition normal Throat: posterior oropharynx normal, tonsils normal and uvula midline Eyes General: appearance normal, both eyes and all related structures Eyelids: eyelids normal Conjunctivae: conjunctivae normal Pupils: PERRL, normal by confrontation and accommodation normal EOM: EOM intact bilaterally Neck Neck: normal visual inspection, trachea midline and no JVD JVD: +5 Carotids: normal carotid upstroke and bounding pulses Chest Chest inspection: normal inspection of the chest, symmetric chest movement and normal respiratory effort Auscultation: Bilateral: Clear to Auscultation Cardio Palpation: normal PMI Rate: regular rate Rhythm: regular rhythm Heart sounds: S1 normal, S2 normal, murmur and normal, physiologic split S2; Negative rub or gallop Murmur: Grade 2/6, soft and mid systolic GI GI: normal to inspection, soft, no hepatosplenomegaly and bowel sounds present Neuro General: patient alert, patient awake, patient oriented x3, gait normal, moves all extremities and no focal sensory deficit Skin Skin: no rashes or lesions noted Extremities Pulses: Normal: Right Femoral Pulse, Left Femoral Pulse, Right Dorsalis Pedis Pulse, Left Dorsalis Pedis Pulse, Right Posterior Tibial Pulse, Left Posterior Tibial Pulse, Right Radial Pulse and Left Radial Pulse Lower Extremity Edema: None: Bilateral Musculoskel Musculoskeletal: No joint tenderness Psych Psychological: normal affect Assessment & Plan Assessment/Plan (1) Persistent atrial fibrillation: PLAN: Plan (1) History of mitral valve repair: Status: Resolved Comment: 09/2000 Plan: He does have a history of mitral valve repair. It is almost 23 years ago. He seems to be doing well I would not suggest that we make any changes at this particular time. (2) Essential (primary) hypertension: Status: Acute Plan: He blood pressures at the excellent control on the current medical therapy and I would not make any changes. (3) Paroxysmal atrial fibrillation: Status: Chronic Plan: He does have a history of paroxysmal atrial fibrillation and remains on anticoagulation. He is not tolerating rate limiting medications and has returned to atrial fibrillation on March 30, 2024. He will undergo YURIDIA and cardioversion.
[2024-04-03 08:09] VITALS: BMI 23.6
--- NOTE | 2024-04-06 09:04 | ECHOTEE_ITS ---
Reason For Study: AFIB Medication YURIDIA probe 6VT-D (SN [id number]) passed without difficulty. No complications were noted. Versed 2 mg given slow IVP. Fentanyl 50 mcg given slow IVP. Cetacaine Topical [place] given X3 orally. Performed a rapid injection of agitated mix of 9 cc saline and 1cc air to assess for atrial septal defect. Left Ventricle Normal LV size. Left ventricular systolic function is normal. The left ventricular ejection fraction is 50 %. No regional wall motion abnormalities noted. Right Ventricle Normal RV size. Normal systolic function. Atria Bubble contrast study is negative for PFO/ASD. The left atrium is mildly enlarged. No thrombus is detected in the left atrial appendage. There is mild sponatenous contrast in the left atrium. Normal right atrium. Mitral Valve Normal mitral valve. Tricuspid Valve Normal tricuspid valve. Aortic Valve Trisinus/trileaflet aortic valve. Mild (1+) aortic valve insufficiency. Pulmonic Valve Normal pulmonic valve. Vessels Normal aortic root. Normal arch. The pulmonary artery is normal size. Pericardium No pericardial effusion. ECHO/Echo Transesophageal (YURIDIA) Interpretation Summary The left atrium is mildly enlarged. Normal LV size. Left ventricular systolic function is normal. The left ventricular ejection fraction is 50 %. Bubble contrast study is negative for PFO/ASD. No thrombus is detected in the left atrial appendage. There is mild sponatenous contrast in the left atrium. Ordering Physician: Rocky Nelson Referring Physician: Rocky Nelson Performed By: Roberta Alcantar RCS
--- NOTE | 2024-04-06 11:33 | PCM.OP.PRO2 ---
Problems Associated Problem List Diagnoses (1) Paroxysmal atrial fibrillation: (2) History of mitral valve repair: Non-invasive Procedural Procedure Information Date of Procedure: 04/06/24 Pre-Procedure Diagnosis: Atrial fibrillation Post-Procedure Diagnosis: Atrial fibrillation Procedure Performed:: DC cardioversion with YURIDIA guidance ecologist technician: No Procedure Time Out: 11:15 Procedure Start Time: :20 Procedure Stop Time: :30 Special Medications: 50 mg of intravenous propofol Description of procedure: Patient underwent YURIDIA this morning which demonstrated no evidence of left atrial appendage thrombus. The patient was then seen by Dr. Romero of the critical care division. Informed consent was obtained. Anterior-posterior pads were applied. The patient was administered 50 mg intravenous propofol and then 200 J of synchronized DC cardioversion energy biphasic was applied with prompt reversal to sinus rhythm. Patient tolerated the procedure well. Procedure findings: Status post recovering to sinus rhythm. Will recommend DC beta-michell at this time. Complications Complications: No
--- NOTE | 2024-04-06 11:44 | PCM.OP.PRO2 ---
Procedures Pulmonary Pulmonary Procedures /Diagnostic Testin Con Sedation Non-invasive Procedural Procedure Information Description of procedure: CONSCIOUS SEDATION REPORT DATE OF SERVICE: April 06, 2024 BRIEF HISTORY OF PRESENT ILLNESS: The patient is a 78-year-old male, who presented to [facility] to undergo an elective cardioversion due to underlying atrial fibrillation. The patient did undergo a YURIDIA this morning, which revealed an ejection fraction of approximately 50%. He did undergo a prior cardioversion in 2018, for which he tolerated propofol, without issue. The patient is systemically anticoagulated on Xarelto. PHYSICAL EXAMINATION: VITAL SIGNS: Reviewed and were acceptable. GENERAL: The patient is a male, in no apparent distress, speaking in full sentences. HEENT: Normocephalic, atraumatic. Mucous membranes are moist and pink. Good mouth opening noted. Trachea is midline. Good neck mobility. CHEST: S1, S2 irregularly irregular. No murmurs, rubs or gallops were noted. LUNGS: Clear to auscultation bilaterally without appreciable wheezes, rales or rhonchi. ABDOMEN: Soft, nontender, nondistended. Positive bowel sounds. EXTREMITIES: There is no clubbing, cyanosis or edema. ASA Class: II DESCRIPTION OF PROCEDURE: After confirmation of informed consent, the patient's anesthesia plan was reviewed in detail. Propofol was chosen. Risks and benefits were reviewed and the patient agreed to proceed. At 1122, the patient was given 50 mg of propofol. The patient achieved an appropriate level of sedation and was given a 200 joule synchronized cardioversion by Dr. Nelson at the bedside. This was successful in achieving normal sinus rhythm. The patient was monitored until 1140, at which time he reached his baseline mental status and function. The patient tolerated the procedure well. COMPLICATIONS: None ESTIMATED BLOOD LOSS: None RECOMMENDATIONS: Okay to recover in usual fashion.
== END | disposition home or self-care (01) ==
LOC: CVS 09:03
PROVIDERS: PCP Internal Medicine; Referring Provider Internal Medicine Cardiovascular Disease; Visit Provider Internal Medicine Cardiovascular Disease
DX: I48.19 Other persistent atrial fibrillation (principal); I10 Essential (primary) hypertension; I25.10 Atherosclerotic heart disease of native coronary artery without angina pectoris; Z87.891 Personal history of nicotine dependence; Z79.01 Long term (current) use of anticoagulants
CPT/HCPCS: 92960; 93005; 93312; 93320; 93325; A4216

== ENCOUNTER → 2025-03-31 | Outpatient (CLI) | payer MEDICARE, OTHER, SELFPAY ==
--- OUTSIDE RECORDS SUMMARY | 2025-03-31 12:20 | XMS RPT_ITS | CCD ---
Author Organization [facility] Care Team Providers Care Analytics Director Name Role Phone Fatou WARNER, Christina Rocha Unavailable Unavailable GOMEZ DALY Unavailable Unavailable IAN BORGES Unavailable Unavailable Jackson Das Unavailable Unavailable TREY GUZMAN Unavailable Unavailable GOMEZ DALY Unavailable Unavailable Jackson Das Unavailable Unavailable Trey Guzman MD Unavailable Pool Daly DO Unavailable Omar [place] S Unavailable Cecil Thomas Unavailable Johnnie Ross MD Primary Care Provider Dr. Jackson Field Referring Provider Dr. Rocky Nelson Attending Provider MD Johnnie Ross Primary Care Provider Trey Sanders MD Unavailable Pool Daly DO Unavailable Omar, [place] S Unavailable Cecil Thomas Unavailable Johnnie Ross MD Primary Care Provider Omar, Rocky S Unavailable Cecil Thomas Unavailable Trey Guzman MD Unavailable Pool Daly DO Unavailable Omar, Rocky S Unavailable Cecil Thomas MD Unavailable Johnnie Ross MD Primary Care Provider Clayton PEREZ, Trey Rocha Unavailable Huber OCHOAPool Unavailable Omar PEREZ, Rocky S Unavailable Cecil Thomas MD Unavailable [phone] Johnnie Ross MD Primary Care Provider Rolle CLOTH WASHER OPERATOR.OPERATOR TECHNICIAN, Josefa Unavailable Olvin CLOTH WASHER OPERATOR.HOME HEALTH CLINICIAN, Evangelina Unavailable Riley PEREZ, Kenneth Dahl Unavailable Olvin CLOTH WASHER OPERATOR.HOME HEALTH CLINICIAN, Evangelina Unavailable Olvin CLOTH WASHER OPERATOR.HOME HEALTH CLINICIAN, Evangelina Unavailable Olvin CLOTH WASHER OPERATOR.HOME HEALTH CLINICIAN, Evangelina Unavailable Rolle CLOTH WASHER OPERATOR.OPERATOR TECHNICIAN, Josefa Unavailable Rolle CLOTH WASHER OPERATOR.OPERATOR TECHNICIAN, Josefa Unavailable Araceli Laura MD Unavailable [phone] Cecil Thomas MD Unavailable Riley PEREZ, Kenneth Dahl Unavailable Jeannie Lamb Attending Unavailable Talampas, Johnnie D Primary Care Unavailable Omar, Rocky Consulting Unavailable Kash Rodriges Attending Unavail able Omar, [place] Referring Unavailable Talampas, Johnnie D Primary Care Unavailable Omar, Rocky Consulting Unavailable Talampas, Johnnie D Primary Care Unavailable Omar, Rocky Attending Unavailable Omar, Rocky Referring Unavailable Omar, [place] Consulting Unavailable Talampas, Johnnie D Primary Care Unavailable Yoan Romero Attending Unavailable Omar, Rocky Referring Unavailable Talampas, Johnnie D Referring Unavailable Talampas, Johnnie D Primary Care Unavailable Desmond RAMOS, Jackson Anaya Attending Unavailable Talampas, Johnnie D Referring Unavailable Talampas, Johnnie D Primary Care Unavailable Desmond RAMOS, Jackson Anaya Attending Unavailable Talampas, Johnnie D Referring Unavailable Omar, [place] Attending Unavailable Talampas, Johnnie D Primary Care Unavailable Talampas, Johnnie D Referring Unavailable Talampas, Johnnie D Primary Care Unavailable Rocky Nelson Attending Unavailable Rocky Nelson Attending Unavailable OmarRocky Referring Unavailable Talampas, Johnnie D Primary Care Unavailable Talampas , Dr. Johnnie Arceo Primary Care Physician Casey PEREZ, Dr. Johnnie Arceo Referring Provider Omar PEREZ, Dr. Hidalgo Attending Physician [phone] JOSEFA ROLLE Referring Unavailable TALAMPAS, JOHNNIE D Primary Care Unavailable TALAMPAS, JOHNNIE D Attending Unavailable TALAMPAS, JOHNNIE D Primary Care Unavailable KEON KELLEY Attending Unavailable TALAMPAS, JOHNNIE D Primary Care Unavailable ARACELI LAURA Attending Unavailable TALAMPAS, JOHNNIE D Primary Care Unavailable TALAMPAS, JOHNNIE D Referring Unavailable TALAMPAS, JOHNNIE D Primary Care Unavailable TALAMPAS, JOHNNIE D Primary Care Unavailable TALAMPAS, JOHNNIE D Attending Unavailable TALAMPAS, JOHNNIE D Primary Care Unavailable HAJA JUAREZ Referring Unavailable TALAMPAS, JOHNNIE D Primary Care Unavailable VANCEKASH Referring Unavailable TALAMPAS, JOHNNIE D Primary Care Unavailable HAJA JUAREZ Attending Unavailable TALAMPAS, JOHNNIE D Primary Care Unavailable VANCE KASH Referring Unavailable TALAMPAS, JOHNNIE D Primary Care Unavailable KENNETH LIN Attending Unavailable TALAMPAS, JOHNNIE D Primary Care Unavailable TALAMPAS, JOHNNIE D Attending Unavailable TALAMPAS, JOHNNIE D Primary Care Unavailable TALAMPAS, JOHNNIE D Primary Care Unavailable SCHWONESIMOTTREY Admitting Unavailable SCHWEIKERTTREY Attending Unavailable SCHWEIKERT TREY Josefina Referring Unavailable TALAMPAS, JOHNNIE D Primary Care Unavailable EUSEBIO, VIRIDIANA Josefina Admitting Unavailable EUSEBIOVIRIDIANA Attending Unavailable EUSEBIO, VIRIDIANA A Referring Unavailable TALAMPAS, JOHNNIE D Primary Care Unavailable SCHWEIKERT, TREY A Admitting Unavailable SCHWEIKERTTREY Attending Unavailable SCHWEIKERTTREY Referring Unavailable TALAMPAS, JOHNNIE D Primary Care Unavailable SELF Referring Unavailable TALAMPAS, JOHNNIE D Primary Care Unavailable ALINE VAZQUEZ Attending Unavailable TALAMPAS, JOHNNIE D Primary Care Unavailable ALINE VAZQUEZ Referring Unavailable TALAMPAS, JOHNNIE D Primary Care Unavailable TREY GUZMAN Attending Unavailable JOSEFA ROLLE Referring Unavailable JOHNNIE ROSS Primary Care Unavailable TREY GUZMAN Referring Unavailable JOHNNIE ROSS Primary Care Unavailable Allergies Allergy Classification Reported Allergen(s) Allergy Type Date of Onset Reaction(s) Facility (20 sources) acetaminophen / oxyCODONE; Translations: [OXYCODONE-ACETAMI NOPHEN] Drug Allergy 05-01-2017 GI Upset [facility] Repository (20 sources) HYDROcodone; Translations: [HYDROCODONE] Drug Allergy 02-11-2018 Vomiting [facility] (20 sources) oxyCODONE; Translations: [OXYCODONE] Drug Allergy 02-11-2018 Vomiting [facility] (1 source) Acetaminophen Drug Allergy 08-22-2021 nausea [facility] Work Phone: (1 source) HYDROcodone Drug Allergy 01-19-2025 [facility] Repository (1 source) oxyCODONE Drug Allergy 01-19-2025 [facility] Repository Medications Current Medications Medication Drug Class(es) Dates Sig (Normalized) Sig (Original) amoxicillin 500 mg oral capsule (13 sources) Penicillin-class Antibacterial Start: 08-24-2024 amoxicillin (AMOXIL) 500 mg capsule Take by mouth four times daily. Prior to dental appointment 08/24/2024 Active Start: 08-24-2024 take 1 capsule by mo ndh three times daily amoxicillin (AMOXIL) 500 mg capsule Take 500 mg by mouth three times a day. 08/24/2024 Active Start: 04-17-2024 take 4 capsules by m outh once as needed Amoxicillin 500 mg capsule Active 2000 mg PO ONCE as needed April 17, 2024 1:00am Take 1 hour prior to dental visits Complies with drug therapy aspirin 81 mg delayed release oral tablet (12 sources) Nonsteroidal Anti-inflammatory Drug Start: 01-19-2025 take 1 tablet by mouth once daily Aspirin (Adult Aspirin Regimen) 81 mg tablet,delayed release (DR/EC) Active 81 mg PO daily January 19, 2025 12:00am Complies with drug therapy Start: 11-18-2024 take 1 tablet by wilfrid once daily aspirin, enteric coated (ASPIRIN, ENTERIC COATED) 81 mg EC tablet Take 1 tablet by mouth once daily. 11/18/2024 Active Start: 10-06-2013 End: 02-11-2018 take 1 tablet by mouth once daily Aspirin 81 MG tablet,chewable Discontinued 81 mg PO DAILY@0800 October 06, 2013 12:00am February 11, 2018 3:37pm Start: 06-30-2013 take 1 tablet by wilfrid th once daily ASPIRIN 81 MG TABS One tablet by mouth daily ASPIRIN [id number] Rocky Nelson MD Start: 06-30-2013 take 1 tablet by wilfrid th once daily ASPIRIN EC 81 MG TBEC One tablet by mouth daily ASPIRIN [id number] Kash Rivera RN Start: 08-07-2010 take 1 tablet by wilfrid th once daily ASPIRIN 325 MG TABS One tablet by mouth daily ASPIRIN [id number] Erika Stewart biotin 5 mg oral capsule (20 sources) Start: 10-16-2022 take 1 capsule by mouth once daily Biotin 5 mg capsule Active 5 mg PO DAILY October 16, 2022 12:00am Complies with drug therapy Start: 07-05-2017 End: 04-17-2024 take 1 capsule by mouth once daily Biotin 1 mg capsule Discontinued 1 mg PO daily July 05, 2017 12:00am April 17, 2024 10:31am Start: 10-06-2013 End: 07-04-2017 Biotin 10,000 MCG capsule Discontinued 5000 ug PO DAILY October 06, 2013 12:00am July 04, 2017 8:42am Start: 10-06-2013 End: 07-04-2017 take 5000 ug by mouth once daily Biotin Discontinued 5000 MCG PO DAILY October 06, 2013 12:00am July 04, 2017 8:42am Start: 08-07-2010 take 1 tablet by wilfrid th once daily BIOTIN FORTE TABS One tablet by mouth daily BIOTIN TABS [id number] Rocky Nelson MD Start: 08-07-2010 BIOTIN FORTE T ABS With Zinc, Vitamin B complex with C, folic acid & Zinc One tablet by mouth daily BIOTIN TABS [id number] Erika Stewart take 5000 ug by mout h once daily BIOTIN ORAL Take 5,000 mcg by mouth once daily. Active take 5000 ug by mout h once daily BIOTIN ORAL Take 5,000 mcg by mouth once daily. 0 Active Comment on above: Take 5,000 mcg by mo uth once daily. 24 hr buPROPion hydrochloride 300 mg extended release oral tablet (20 sources) Aminoketone Start: take 1 tablet by mouth once daily buPROPion XL (WELLBUTRIN XL) 300 mg 24 hr tablet Take 1 tablet by mouth once daily. 90 tablet 3 03/13/2024 Active Start: 10-06-2013 End: 07-05-2017 Bupropion Hcl 150 MG tablet extended release 24 hr Discontinued 300 mg PO DAILY October 06, 2013 12:00am July 05, 2017 3:00pm Start: 10-06-2013 End: 07-05-2017 take 300 mg by mouth once daily Bupropion Hcl Disconti nued 300 MG PO DAILY October 06, 2013 12:00am July 05, 2017 3:00pm Start: 06-30-2013 End: 02-26-2023 take 1 tablet by mouth once daily buPROPion XL (WELLBUTRIN XL) 300 mg 24 hr tablet Take 1 tablet by mouth once daily. 90 tablet 3 12/28/2022 Active Start: 06-30-2013 take 1 tablet by wilfrid th at bedtime BUPROPION HCL ER (SR) 150 MG [id number] One tablet by mouth at bedtime. BUPROPION HCL [id number] Rocky Nelson MD Comment on above: Take 1 tablet by wilfrid th once daily. clopidogrel 75 mg oral tablet (1 source) P2Y12 Platelet Inhibitor Start: 01-20-20 take 1 tablet by mouth once daily Clopidogrel (Plavix) 75 mg tablet Active 75 mg PO DAILY January 19, 2025 12:00am To discontinue Xarelto. Complies with drug therapy LORazepam 0.5 mg oral tablet (20 sources) Benzodiazepine Start: 07-23-19 take 0.25 mg by mouth once daily as needed for anxiety Lorazepam 0.5 mg tablet Active 0.25 mg PO DAILY NEEDED as needed for Anxiety July 22, 2024 10:44am Complies with drug therapy Start: 08-22-2021 End: 09-21-2021 take 0.5-1 tablets by mouth every 30 days as needed for anxiety LORazepam (ATIVAN) 0.5 mg Indications: Panic attack Take 0.5-1 tablets by mouth as needed (anxiety) for up to 30 days. 30 tablet 0 08/22/2021 09/21/2021 Active Start: 10-06-2013 End: 07-22-2024 Lorazepam 0.5 MG tablet Disc ontinued 0.25 {tbl} PO DAILY NEEDED as needed for Anxiety October 06, 2013 12:00am July 22, 2024 10:45am Start: 08-07-2010 End: 08-22-2021 take 0.25 mg by mouth once daily as needed LORazepam (ATIVAN) 0.5 mg Take 0.25 mg by mouth once daily as needed. 08/07/2010 Active Start: 08-07-2010 LORAZEPAM 0.5 MG TABS As needed LORAZEPAM [id number] Erika Stewart Comment on above: Take 0.25 mg by mout h as needed (anxiety). Take 0.5-1 tablets b y mouth as needed (anxiety) for up to 30 days. losartan potassium 50 mg oral tablet (20 sources) Angiotensin 2 Receptor Michell Start: 08-23-2020 End: 01-08-2024 take 1 tablet by mouth once daily losartan (COZAAR) 50 mg tablet Take 1 tablet by mouth once daily. (Dr. Nelson) 08/25/2024 Active Start: 07-04-2017 End: 08-23-2020 take 1 tablet by mouth once daily Losartan 25 mg tablet Discontinued 25 mg PO DAILY 90 3 2020 10:54am August 23, 2020 10:38am Start: 10-06-2013 End: 08-25-2024 take 2 tablets by mouth once daily losartan (COZAAR) 25 mg tablet Take 50 mg by mouth once daily. 3 04/09/2017 08/25/2024 Discontinued Start: 10-06-2013 End: 07-04-2017 take 50 mg by mouth once daily Losartan Discontinued 5 0 MG PO DAILY October 06, 2013 12:00am July 04, 2017 8:42am Start: 06-24-2012 take 1 tablet by wilfrid th once daily COZAAR 25 MG TABS One tablet by mouth daily LOSARTAN POTASSIUM [id number] Jackson Logan NP Comment on above: Take 50 mg by mouth once daily. MEDICATION, NON-DATABASE (7 sources) take 1 capsule by mouth once daily MEDICATION, NON-DATABASE Take 1 capsule by mouth once daily. Zinc complex with quercetin and vitamin C Active molnupiravir 200 mg capsule (1 source) Start: 3 End: 3 take 4 capsules by mouth twice daily molnupiravir 200 mg capsule Take 4 capsules by mouth twice daily for 5 days. 40 capsule 0 05/18/2022 05/23/2022 Active Comment on above: Take 4 capsules by m outh twice daily for 5 days. MULTIVITAMIN TAB (20 sources) Start: 6 take 1 tablet by mouth once daily MULTIVITAMIN TAB Take one(1) tablet by mouth daily. 0 07/17/2005 Active Comment on above: Take one(1) tablet b y mouth daily. Multivitamin With Folic Acid (1 source) Start: 4 take 1 tablet by mouth once daily Multivitamin With Folic Acid Active 1 TABLET PO DAILY October 06, 2013 12:00am Multivitamin With Folic Acid 1 TABLET tablet (1 source) Start: 4 take 1 tablet by mouth once daily Multivitamin With Folic Acid 1 TABLET tablet Active 1 {tbl} PO DAILY October 06, 2013 12:00am Complies with drug therapy 125 ml sodium chloride 9 mg/ml prefilled syringe (8 sources) Start: 5 End: 6 sodium chloride 0.9 %, flush, (BD POSIFLUSH) syringe Indications: Presence of Watchman left atrial appendage closure device , Paroxysmal atrial fibrillation (HCC) Inject 2-10 mL intravenously as directed. For Echo procedure 10 mL 11/18/2024 11/18/2025 Active Start: 05-04-2024 End: 05-04-2024 0.9 % sodium chloride (NACL 0.9%) infusion Administer at rate defined per CT contrast administration specifications. To be provided with radiology test. 150 mL 05/04/2024 05/04/2024 Active tamsulosin hydrochloride 0.4 mg oral capsule (7 sources) alpha-Adrenergic Michell Start: 06-14-2021 End: 12-19-2021 take 2 capsules by mouth once daily at bedtime tamsulosin (FLOMAX) 0.4 mg TAKE 2 CAPSULES BY MOUTH DAILY AT BEDTIME. 60 capsule 6 07/06/2021 12/19/2021 Discontinued (Course of therapy completed) Comment on above: Take 2 capsules by m outh daily at bedtime. triamcinolone acetonide 0.055 mg/actuat metered dose nasal spray (20 sources) Corticosteroid Start: 09-24-2017 Triamcinolone Acetonide (Nasacort) 55 mcg aerosol,spray Active 2 NMA INTRANASAL daily September 24, 2017 12:00am Complies with drug therapy Start: 09-24-2017 Triamcinolone Acetonide (Nasacort) 55 mcg aerosol,spray Active 2 SPRAY INTRANASAL daily September 24, 2017 12:00am triamcinolone ac etonide (NASACORT NASAL) Use in the nose once daily. Active triamcinolone ac etonide (NASACORT NASAL) Use in the nose once daily. 0 Active Comment on above: Use in the nose once daily. ubidecarenone 100 mg oral capsule (20 sources) Start: 08-21-2019 take 10 capsules by mouth once daily Coenzyme Q10 100 mg capsule Active 100 mg PO DAILY August 21, 2019 12:00am Complies with drug therapy coenzyme Q10 (CO ENZYME Q-10) 100 mg cap capsule Take 100 mg by mouth twice daily. Active Comment on above: Take 100 mg by mouth twice daily. Zinc (2 sources) Start: 08-23-2020 take 1 tablet by mouth once daily Zinc 50 mg tablet Active 50 mg PO DAILY August 23, 2020 12:00am Complies with drug therapy Start: 08-23-2020 take 50 mg by mouth once daily Zinc Active 50 MG PO DAILY August 23, 2020 12:00am Zinc Acetate (20 sources) ZINC ACETATE ORA L Take by mouth. Active ZINC ACETATE ORA L Take by mouth. 0 Active Comment on above: Take by mouth. Completed/Discontinued Medications Medication Drug Class(es) Dates Sig (Normalized) Sig (Original) apixaban 5 mg oral tablet (20 sources) Factor Xa Inhibitor Start: 01-29-2023 End: 05-11-2024 take 1 tablet by mouth twice daily apixaban (ELIQUIS) 5 mg tab(s) Take 1 tablet by mouth two times a day. 02/26/2023 05/11/2024 Discontinued (Course of therapy completed) Start: 04-26-2017 End: 02-11-2018 take 1 tablet by mouth twice daily Apixaban 5 MG tablet Discontinued 5 mg PO TWICE A DAY 60 May 27, 2017 6:53pm February 11, 2018 2:51pm Comment on above: Take 1 tablet by wilfrid two times a day. atorvastatin 40 mg oral tablet (20 sources) HMG-CoA Reductase Inhibitor Start: 4 End: 5 take 1 tablet by mouth at bedtime Atorvastatin 40 mg tablet Discontinued 40 mg PO AT BEDTIME 90 November 04, 2023 8:00am November 05, 2024 3:50pm Comment on above: Take 40 mg by mouth once daily. benzonatate 100 mg oral capsule (7 sources) Non-narcotic Antitussive Start: 4 End: take 1 capsule by mouth every eight hours as needed benzonatate (TESSALON PERLE) 100 mg capsule Take 1 capsule by mouth three times a day as needed for cough. 30 capsule 04/02/2024 05/11/2024 Discontinued (Course of therapy completed) Start: 05-18-2022 End: 08-02-2022 take 2 capsules by mouth every eight hours as needed benzonatate (TESSALON PERLE) 100 mg capsule Take 2 capsules by mouth three times daily as needed. 30 capsule 0 05/18/2022 08/02/2022 Discontinued Comment on above: Take 2 capsules by m out three times daily as needed. celecoxib 200 mg oral capsule (2 sources) Nonsteroidal Anti-inflammatory Drug Start: 09-02-2018 End: 08-21-2019 Celecoxib 200 mg capsule Discontinued PO 21 21 September 02, 2018 12:00am August 21, 2019 12:58pm Start: 09-02-2018 End: 08-21-2019 Celecoxib Discontinued PO 21 September 02, 2018 12:00am August 21, 2019 12:58pm cholecalciferol 400 unt oral tablet (2 sources) Vitamin D Start: 08-07-2010 End: 11-20-2011 take 1 tablet by mouth twice daily VITAMIN D3 400 UNIT TABS One tablet by mouth twice daily CHOLECALCIFEROL [id number] Jeff Johnson MD citalopram 20 mg oral tablet (2 sources) Serotonin Reuptake Inhibitor Start: 08-07-2010 End: 06-30-2013 take 1 tablet by mouth once daily CITALOPRAM HYDROBROMIDE 20 MG TABS One tablet by mouth daily CITALOPRAM HYDROBROMIDE [id number] Rocky Nelson MD fish oil (2 sources) Start: 08-07-2010 take 1 tablet by mouth twice daily FISH OIL CAPS One tablet by mouth twice daily OMEGA-3 FATTY ACIDS CAPS [id number] Rocky Nelson MD Start: 08-07-2010 take 1 tablet by wilfrid th once daily FISH OIL CAPS One tablet by mouth daily OMEGA-3 FATTY ACIDS CAPS [id number] Erika Stewart Fish Oil-Dha-Epa (1 source) Start: 10-06-2013 End: 08-22-2021 Fish Oil-Dha-Epa Discontinued 1 EACH PO AT BEDTIME October 06, 2013 12:00am August 22, 2021 10:22am Fish Oil-Dha-Epa 1 EACH capsule (1 source) Start: 10-06-2013 End: 08-22-2021 take 1 capsule by mouth at bedtime Fish Oil-Dha-Epa 1 EACH capsule Discontinued 1 NMA PO AT BEDTIME October 06, 2013 12:00am August 22, 2021 10:22am iv contrast (will be provided with radiology test) (20 sources) Start: 05-04-2024 End: 11-17-2024 iv contrast (will be provided with radiology test) CT Urogram WO/W Inject, intravenously, once for 1 dose.No IV access, insert saline lock prior to the beginning of sedation, infusion, injection of imaging exam. Discontinue saline lock post exam. If Pt. has a central line or IVAD, may access for administration according to line specific nursing protocol. Once exam is complete flush line and de-access according to line specific nursing protocol in the CT contrast administration guidelines link. 1 Each 05/04/2024 11/17/2024 Discontinued (Course of therapy completed) Start: 05-04-2024 iv contrast (w ill be provided with radiology test) CT Urogram WO/W Inject, intravenously, once for 1 dose.No IV access, insert saline lock prior to the beginning of sedation, infusion, injection of imaging exam. Discontinue saline lock post exam. If Pt. has a central line or IVAD, may access for administration according to line specific nursing protocol. Once exam is complete flush line and de-access according to line specific nursing protocol in the CT contrast administration guidelines link. 1 Each 05/04/2024 Active LAGEVRIO, EUA, 200 mg capsule (1 source) Start: 07-31-2024 End: 08-25-2024 take 4 capsules by mouth every twelve hours LAGEVRIO, EUA, 200 mg capsule Take 4 capsules by mouth every 12 hours. 07/31/2024 08/25/2024 Discontinued (Course of therapy completed) lidocaine hydrochloride 0.02 mg/mg topical gel (5 sources) Antiarrhythmic, Amide Local Anesthetic Start: 05-27-2024 End: 05-28-2024 10 mL, URETHRAL, ONCE (UP TO 30 DAYS AMB), 1 dose, On Sat05/27/24 at 1130, APPLY PRIOR TO PROCEDURE DIRECTED Start: 05-25-2024 End: 06-24-2024 lidocaine urojet 2 % 10 mL t opical gel (GLYDO) lovastatin 40 mg oral tablet (1 source) HMG-CoA Reductase Inhibitor Start: 06-24-2012 take 1 tablet by mouth at bedtime MEVACOR 40 MG TABS One tablet by mouth at bedtime. LOVASTATIN [id number] Rocky Nelson MD NIACIN-LOVASTATIN (1 source) HMG-CoA Reductase Inhibitor, Nicotinic Acid Start: 08-07-2010 take 1 tablet by mouth at bedtime ADVICOR 1000-40 MG [id number] One tablet by mouth at bedtime. NIACIN-LOVASTATIN [id number] Jeff Johnson MD melatonin 5 mg oral capsule (2 sources) Start: 08-23-2020 End: 10-16-2022 take 1 capsule by mouth at bedtime as needed Melatonin 5 mg capsule Discontinued 5 mg PO AT BEDTIME as needed August 23, 2020 12:00am October 16, 2022 10:01am metoprolol tartrate 25 mg oral tablet (20 sources) beta-Adrenergic Michell Start: 03-30-2024 End: 01-19-2025 take 1 tablet by mouth twice daily Metoprolol Tartrate 25 mg tablet Discontinued 25 mg PO TWICE A DAY 180 April 22, 2024 2:04pm January 19, 2025 10:14am metoprolol tartr ate, short acting, (LOPRESSOR) 25 mg tablet Take 12.5 mg by mouth two times a day. Active MULTIPLE VITAMIN (1 source) Start: 08-07-2010 take 1 tablet by mouth once daily MULTIVITAMINS TABS One tablet by mouth daily MULTIPLE VITAMIN [id number] Erika Stewart niacin 500 mg oral tablet (3 sources) Nicotinic Acid Start: 06-27-2012 End: 06-30-2013 take 2 tablets by mouth at bedtime NIACIN 500 MG TABS (ER) Two tablets by mouth at bedtime NIACIN [id number] Rocky Nelson MD Start: 06-24-2012 take 1 tablet by wilfrid th once daily NIASPAN 1000 MG CR-TABS One tablet by mouth daily NIACIN (ANTIHYPERLIPIDEMIC) [id number] Jeff Johnson MD rivaroxaban 20 mg oral tablet (20 sources) Factor Xa Inhibitor Start: 02-14-2024 End: 01-19-2025 take 1 tablet by mouth once daily at dinner Rivaroxaban (Xarelto) 20 mg tablet Discontinued 20 mg PO DAILY 90 April 17, 2024 11:29am January 19, 2025 10:14am must administer with evening meal Start: 02-11-2018 End: 02-26-2023 take 1 tablet by mouth once daily Rivaroxaban (Xarelto) 20 mg tablet Discontinued 20 mg PO DAILY 30 February 05, 2022 10:24am January 29, 2023 3:46pm Comment on above: Take 20 mg by mouth daily with dinner. tadalafil 20 mg oral tablet (16 sources) Phosphodiesterase 5 Inhibitor Start: 024 End: 025 Tadalafil (CIALIS) 20 mg tablet Take 1 tablet by mouth as needed. Take 1-2 hours before sexual activity. 15 tablet 3 05/13/2023 05/15/2024 Discontinued (Other) Comment on above: Take 1 tablet by wilfrid th as needed. Take 1-2 hours before sexual activity. valsartan 40 mg oral tablet (1 source) Angiotensin 2 Receptor Michell Start: 011 take 1 tablet by mouth once daily DIOVAN 40 MG TABS One tablet by mouth daily VALSARTAN [id number] Jeff Johnson MD verapamil hydrochloride 180 mg extended release oral tablet (5 sources) Calcium Channel Michell Start: 014 End: 018 take 1 tablet by mouth once daily Verapamil 180 MG tablet extended release Discontinued 180 mg PO DAILY 90 March 12, 2017 3:33pm April 26, 2017 12:47pm Start: 08-07-2010 take 1 tablet by wilfrid th once daily VERAPAMIL HCL ER 180 MG CR-TABS One tablet by mouth daily VERAPAMIL HCL [id number] Rocky Nelson MD Problems Active Problems Problem Classification Problem Date Documented Date Episodic/Chronic Abdominal hernia (2 sources) Left inguinal hernia ; Translations: [Unilateral inguinal hernia, without obstruction or gangrene, not specified as recurrent] Episodic Anxiety disorders (20 sources) Mixed anxiety and depressive disorder; Translations: [Anxiety disorder, unspecified] Onset: 06-13-2021 06-13-2021 Chronic Cancer of prostate (20 sources) Malignant tumor of prostate; Translations: [Malignant neoplasm of prostate] Onset: 03-16-2021 03-16-2021 Chronic Comment on above: I-125 permanent pros tatic seed implantation 06/15/21 Cardiac dysrhythmias (20 sources) Premature beats; Translations: [Ventricular premature beats] Onset: 08-07-2010 Resolved: 07-05-2015 07-05-2015 Chronic Conditions associated with dizziness or vertigo (2 sources) Dizziness; Translations: [Dizziness and giddiness] 01-15-2023 Episodic Coronary atherosclerosis and other heart disease (20 sources) Coronary arteriosclerosis; Translations: [Atherosclerotic heart disease of [place] coronary artery without angina pectoris] Onset: 06-13-2021 06-13-2021 Chronic Disorders of lipid metabolism (20 sources) Hyperlipidemia; Translations: [Dyslipidemia] Onset: 08-07-2010 08-07-2010 Chronic Esophageal disorders (9 sources) Gastroesophageal reflux disease without esophagitis; Translations: [Gastro-esophageal reflux disease without esophagitis] Onset: 11-11-2024 11-11-2024 Chronic Essential hypertension (20 sources) Hypertensive disorder; Translations: [Essential (primary) hypertension] Onset: 06-13-2021 06-13-2021 Chronic Heart valve disorders (20 sources) Nonrheumatic mitral (valve) prolapse; Translations: [Mitral valve prolapse] Onset: 08-07-2010 07-05-2015 Chronic Malaise and fatigue (4 sources) Asthenia; Translations: [Weakness] 01-15-2023 Episodic Nephritis; nephrosis; renal sclerosis (1 source) Recurrent hematuria; Translations: [Recurrent and persistent hematuria with unspecified morphologic changes] 07-13-2024 Chronic Other aftercare (20 sources) Long-term current use of anticoagulant; Translations: [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] 05-28-2017 Episodic Other aftercare (6 sources) History of malignant neoplasm of prostate; Translations: [Encounter for follow-up examination after completed treatment for malignant neoplasm] Episodic Other aftercare (9 sources) Patient encounter status; Translations: [Other jail (current) drug therapy] Episodic Other aftercare (2 sources) Long-term current use of drug therapy; Translations: [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] 07-13-2024 Episodic Other aftercare (1 source) 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; Translations: [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] Onset: 12-12-2024 Episodic Other and ill-defined heart disease (20 sources) Systolic dysfunction; Translations: [Heart disease, unspecified] Onset: 06-13-2021 06-13-2021 Chronic Other circulatory disease (12 sources) Presence of other cardiac implants and grafts; Translations: [Other specified cardiac device in situ] Onset: 04-08-2024 11-18-2024 Chronic Other male genital disorders (2 sources) Male erectile dysfunction, unspecified; Translations: [Impotence of organic origin] Onset: 11-11-2024 11-10-2024 Chronic Residual codes; unclassified (20 sources) Obstructive sleep apnea syndrome; Translations: [Obstructive sleep apnea (adult) (pediatric)] Onset: 06-13-2021 06-13-2021 Chronic Residual codes; unclassified (1 source) Obstructive sleep apnea (adult) (pediatric); Translations: [LISSETTE (obstructive sleep apnea)] Onset: 06-13-2021 Chronic Residual codes; unclassified (14 sources) H/O cardiac surgery; Translations: [Other specified postprocedural states] 11-17-2024 Episodic Unclassified (1 source) Unknown / UNK(Unknown) Onset: 05-01-2017 Unclassified (2 sources) Erectile dysfunction, unspecified erectile dysfunction type 11-16-2024 Unclassified (6 sources) Autogenerated Problem Onset: 11-23-2024 11-23-2024 Unclassified (4 sources) Other persistent atrial fibrillation; Translations: [Other persistent atrial fibrillation] Onset: 05-28-2017 Viral infection (2 sources) COVID-19; Translations: [Other specified viral infection] Episodic Past or Other Problems Problem Classification Problem Date Documented Date Episodic/Chronic Acute bronchitis (2 sources) Acute bronchitis; Translations: [Acute bronchitis, unspecified] Onset: 04-02-2024 04-02-2024 Episodic Acute cerebrovascular disease (2 sources) Acute cerebrovascular disease 06-06-2024 Cancer of prostate (1 source) Personal history of malignant neoplasm of prostate; Translations: [Encounter for follow-up surveillance of prostate cancer] Onset: 08-22-2024 Episodic Cardiac dysrhythmias (20 sources) Palpitations; Translations: [Bradycardia] Onset: 08-07-2010 Resolved: 06-13-2021 07-05-2015 Episodic Diabetes mellitus without complication (7 sources) Impaired fasting glycemia; Translations: [Impaired fasting glucose] Onset: 08-22-2024 Episodic Genitourinary symptoms and ill-defined conditions (20 sources) Harrison hematuria; Translations: [Gross hematuria] Onset: 05-16-2024 05-04-2024 Episodic Other aftercare (3 sources) Other jail (current) drug therapy; Translations: [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] Onset: 08-07-2010 07-05-2015 Episodic Other aftercare (1 source) Encounter for follow-up examination after completed treatment for malignant neoplasm; Translations: [Encounter for follow-up surveillance of prostate cancer] Onset: 08-22-2024 Episodic Other circulatory disease (3 sources) Abnormal result of cardiovascular function study, unspecified; Translations: [Carotid bruit] Onset: 08-07-2010 Resolved: 07-05-2015 07-05-2015 Episodic Other screening for suspected conditions (not mental disorders or infectious disease) (1 source) Encounter for screening for other disorder; Translations: [Screening for genitourinary condition] Onset: 11-10-2024 Episodic Other upper respiratory infections (3 sources) Acute upper respiratory infection; Translations: [Acute upper respiratory infection, unspecified] Onset: 04-02-2024 Episodic Residual codes; unclassified (20 sources) History of repair of mitral valve; Translations: [Other specified postprocedural states] Onset: 10-04-2000 05-28-2017 Episodic Comment on above: 09/2000 Residual codes; unclassified (20 sources) Other specified personal risk factors, not elsewhere classified; Translations: [Other specified personal history presenting hazards to health] Onset: 11-15-2024 05-28-2017 Episodic Residual codes; unclassified (5 sources) Other specified postprocedural states; Translations: [Personal history of surgery to heart and great vessels, presenting hazards to health] Onset: 10-04-2000 Episodic Residual codes; unclassified (20 sources) At risk of hemorrhage; Translations: [Other specified personal risk factors, not elsewhere classified] Onset: 05-16-2024 05-16-2024 Episodic Unclassified (1 source) Presence of Watchman left atrial appendage closure device 11-18-2024 Results Test Name Value Interpretation Reference Range Facility CBC panel Auto (Bld)on 02-16 Erythrocyte distribution width (RBC) [Ratio] 13.4 % Normal 11.5-15.0 [facility] Comment on above: Order Comment: Speci men Type: BLOOD SPECIMENOrdering Facility: [facility] Address: [address] [place] [address] Performed By: #### 5 8410-2 ####[facility] [id number] STATES OF [facility] Hematocrit (Bld) [Volume fraction] 43.4 % Normal 39.0-51.0 [facility] Comment on above: Order Comment: Speci men Type: BLOOD SPECIMENOrdering Facility: [facility] Address: [address] [place] [address] Performed By: #### 5 8410-2 ####[facility] [id number] [place] [address] [place] Hemoglobin (Bld) [Mass/Vol] 14.1 g/dL Normal 13.0-17.0 [facility] Comment on above: Order Comment: Speci men Type: BLOOD SPECIMENOrdering Facility: [facility] Address: [address] [place] [address] Performed By: #### 5 8410-2 ####[facility] [id number] [place] [address] [place] MCH (RBC) [Entitic mass] 30.4 pg Normal 26.0-34.0 [facility] Comment on above: Order Comment: Speci men Type: BLOOD SPECIMENOrdering Facility: [facility] Address: [address] [place] [address] Performed By: #### 5 8410-2 ####[facility] [id number] [place] [address] [place] MCHC (RBC) [Mass/Vol] 32.5 g/dL Normal 30.5-36.0 [facility] Comment on above: Order Comment: Speci men Type: BLOOD SPECIMENOrdering Facility: [facility] Address: [address] [place] [address] Performed By: #### 5 8410-2 ####[facility] [id number] [address] [place] MCV (RBC) [Entitic vol] 93.5 fL Normal 80.0-100.0 [facility] Comment on above: Order Comment: Speci men Type: BLOOD SPECIMENOrdering Facility: [facility] Address: [address] [place] [address] Performed By: #### 5 8410-2 ####[facility] [id number] [place] [address] [place] Nucleated RBC (Bld) [#/Vol] 10*3/uL Normal <0.01 [facility] Comment on above: Order Comment: Speci men Type: BLOOD SPECIMENOrdering Facility: [facility] Address: [address] [place] [address] Performed By: #### 5 8410-2 ####[facility] [id number] [place] [address] [place] Platelet mean volume (Bld) [Entitic vol] 9.1 fL Normal 9.0-12.7 [facility] Comment on above: Order Comment: Speci men Type: BLOOD SPECIMENOrdering Facility: [facility] Address: [address] [place] [address] Performed By: #### 5 8410-2 ####[facility] [id number] [place] [address] [place] Platelets (Bld) [#/Vol] 279 10*3/uL Normal 150-400 [facility] Comment on above: Order Comment: Speci men Type: BLOOD SPECIMENOrdering Facility: [facility] Address: [address] [place] [address] Performed By: #### 5 8410-2 ####[facility] [id number] [place] [address] [place] RBC (Bld) [#/Vol] 4.64 10*6/uL Normal 4.20-6.00 [facility] Comment on above: Order Comment: Speci men Type: BLOOD SPECIMENOrdering Facility: [facility] Address: [address] [place] [address] Performed By: #### 5 8410-2 ####[facility] [id number] [place] [address] [place] WBC (Bld) [#/Vol] 6.41 10*3/uL Normal 3.70-11.00 [facility] Comment on above: Order Comment: Speci men Type: BLOOD SPECIMENOrdering Facility: [facility] Address: [address] [place] [address] Performed By: #### 5 8410-2 ####[facility] [id number] [place] [address] [place] Comprehensive metabolic 2000 panelon 11-11-2025 Albumin [Mass/Vol] 4.3 g/dL Normal 3.9-4.9 [facility] Comment on above: Order Comment: Speci men Type: BLOOD SPECIMENOrdering Facility: [facility] Address: [address] [place] [address] Performed By: #### 2 4323-8 ####[facility] [id number] [place] [address] [place] ALP [Catalytic activity/Vol] 99 U/L Normal 38-113 [facility] Comment on above: Order Comment: Speci men Type: BLOOD SPECIMENOrdering Facility: [facility] Address: [address] [place] [address] Performed By: #### 2 4323-8 ####[facility] [id number] [place] [address] [place] ALT [Catalytic activity/Vol] 35 U/L Normal 10-54 [facility] Comment on above: Order Comment: Speci men Type: BLOOD SPECIMENOrdering Facility: [facility] Address: [address] [place] [address] Performed By: #### 2 4323-8 ####[facility] [id number] [place] [address] [place] Anion gap [Moles/Vol] 10 mmol/L Normal 8-15 [facility] Comment on above: Order Comment: Speci men Type: BLOOD SPECIMENOrdering Facility: [facility] Address: [address] [place] [address] Performed By: #### 2 4323-8 ####[facility] [id number] [place] [address] [place] AST [Catalytic activity/Vol] 35 U/L Normal 14-40 [facility] Comment on above: Order Comment: Speci men Type: BLOOD SPECIMENOrdering Facility: [facility] Address: [address] [place] [address] Performed By: #### 2 4323-8 ####[facility] [id number] [place] [address] [place] Bilirubin [Mass/Vol] 0.4 mg/dL Normal 0.2-1.3 [facility] Comment on above: Order Comment: Speci men Type: BLOOD SPECIMENOrdering Facility: [facility] Address: [address] [place] [address] Performed By: #### 2 4323-8 ####[facility] [id number] [place] [address] [place] Calcium [Mass/Vol] 9.4 mg/dL Normal 8.5-10.2 [facility] Comment on above: Order Comment: Speci men Type: BLOOD SPECIMENOrdering Facility: [facility] Address: [address] [place] [address] Performed By: #### 2 4323-8 ####[facility] [id number] [place] [address] [place] Chloride [Moles/Vol] 104 mmol/L Normal 98-107 [facility] Comment on above: Order Comment: Speci men Type: BLOOD SPECIMENOrdering Facility: [facility] Address: [address] [place] [address] Performed By: #### 2 4323-8 ####[facility] [id number] [place] [address] [place] CO2 [Moles/Vol] 26 mmol/L Normal 22-30 [facility] Comment on above: Order Comment: Speci men Type: BLOOD SPECIMENOrdering Facility: [facility] Address: [address] [place] [address] Performed By: #### 2 4323-8 ####[facility] [id number] [place] [address] [place] Creatinine [Mass/Vol] 0.70 mg/dL Low 0.73-1.22 [facility] Comment on above: Order Comment: Speci men Type: BLOOD SPECIMENOrdering Facility: [facility] Address: [address] [place] [address] Performed By: #### 2 4323-8 ####[facility] [id number] eGFRcr SerPlBld CKD-EPI 2020 95 mL/min/1.73m??? Normal >=60 [facility] Comment on above: Order Comment: Walt khan Type: BLOOD SPECIMENOrdering Facility: [facility] Address: [address] [place] [address] Result Comment: Denisse mated Glomerular Filtration Rate (eGFR) is calculated using the 2020 CKD-EPI creatinine equation. This equation utilizes serum creatinine, sex, and age as parameters. The creatinine assay has traceable calibration to isotope dilution-mass spectrometry. Refer to KDIGO guidelines for clinical interpretation. In patients with unstable renal function, e.g. those with acute kidney injury, the eGFR may not accurately reflect actual GFR. Performed By: #### 2 4323-8 ####[facility] [id number] [place] [address] [place] Glucose [Mass/Vol] 102 mg/dL High 74-99 [facility] Comment on above: Order Comment: Walt khan Type: BLOOD SPECIMENOrdering Facility: [facility] Address: [address] [place] [address] Result Comment: The [place] Diabetes Association (ADA) provides guidance for cutoff values for fasting glucose and random glucose. The ADA defines fasting as no caloric intake for at least 8 hours. Fasting plasma glucose results between 100 to 125 mg/dL indicate increased risk for diabetes (prediabetes). Fasting plasma glucose results greater than or equal to 126 mg/dL meet the criteria for diagnosis of diabetes. In the absence of unequivocal hyperglycemia, results should be confirmed by repeat testing. In a patient with classic symptoms of hyperglycemia or hyperglycemic crisis, random plasma glucose results greater than or equal to 200 mg/dL meet the criteria for diagnosis of diabetes. Reference: Standards of Medical Care in Diabetes 2016, [place] Diabetes Association. Diabetes Care. 2016.39(Suppl 1). Performed By: #### 2 4323-8 ####[facility] [id number] [place] [address] [place] Potassium [Moles/Vol] 4.5 mmol/L Normal 3.7-5.1 [facility] Comment on above: Order Comment: Speci men Type: BLOOD SPECIMENOrdering Facility: [facility] Address: [address] [place] [address] Performed By: #### 2 4323-8 ####[facility] [id number] [place] [address] [place] Protein [Mass/Vol] 6.4 g/dL Normal 6.3-8.0 [facility] Comment on above: Order Comment: Speci men Type: BLOOD SPECIMENOrdering Facility: [facility] Address: [address] [place] [address] Performed By: #### 2 4323-8 ####[facility] [id number] [place] [address] [place] Sodium [Moles/Vol] 140 mmol/L Normal 136-144 [facility] Comment on above: Order Comment: Speci men Type: BLOOD SPECIMENOrdering Facility: [facility] Address: [address] [place] [address] Performed By: #### 2 4323-8 ####[facility] [id number] [place] [address] [place] Urea nitrogen [Mass/Vol] 21 mg/dL Normal 9-24 [facility] Comment on above: Order Comment: Speci men Type: BLOOD SPECIMENOrdering Facility: [facility] Address: [address] [place] [address] Performed By: #### 2 4323-8 ####[facility] [id number] [place] [address] [place] HbA1c (Bld)on 02-16-2025 Average glucose Estimated from glycated hemoglobin (Bld) [Mass/Vol] 108 mg/dL Normal [facility] Comment on above: Order Comment: Speci men Type: BLOOD SPECIMENOrdering Facility: [facility] Address: [address] [place] [address] Result Comment: eAG: (Estimated average glucose) is a calculated value from HgbA1c and is technology sales representative of the average blood glucose level in the last 2-3 month period. Performed By: #### 5 5454-3 ####[facility] [id number] [place] [address] [place] HbA1c (Bld) [Mass fraction] 5.4 % Normal 4.3-5.6 [facility] Comment on above: Order Comment: Speci men Type: BLOOD SPECIMENOrdering Facility: [facility] Address: [address] [place] [address] Result Comment: [place] Diabetes Association guidelines indicate that patients with HgbA1c in the range 5.7-6.4% are at increased risk for development of diabetes, and intervention by lifestyle modification may be beneficial. HgbA1c greater or equal to 6.5% is considered diagnostic of diabetes. Performed By: #### 5 5454-3 ####[facility] [id number] OF [facility] CNCOon 01-24-2025 CNCO Letter Text Normal [facility] Cardiology Visit Reporton Cardiology Visit Report [facility] [place] [address] [place], [place] [address] OFFICE VISIT Date of Service: 01/19/25 MR#: [id number] Acct: [id number] Name: RYLEY MCKEON Rep #: [id number] : 1945 Provider: Dr. Rocky Nelson MD Age/Sex: 79/M [place] [facility] [place] Status: Signed HPI HPI History of Present Illness Details: RYLEY MCKEON, is a 79M who presents to the office today for a follow-up visit. He is a gentleman with a history of mitral valve disease status post mitral valve repair for mitral valve prolapse in 2000 at the [facility]. He had presented a while ago with atrial flutter for which she underwent YURIDIA guided cardioversion and repeat cardioversion. 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 He sought the EP doctors at [facility] and it was decided to pursue expectant therapy. He has done well since. He did have an echocardiogram performed in 2021 which demonstrated stable ejection fraction of 60% and stable status post mitral valve repair with an annuloplasty ring. He had transesophageal echocardiogram and cardioversion on 04/06/2024. He presented to office on 04/13/2024 for a post cardioversion ECG. This showed sinus bradycardia at a rate of 46 bpm. His metoprolol was placed on hold. On 04/17/2024 he underwent repeat ECG that showed atrial fibrillation at a rate of 120 bpm. He was seen with [facility], electrophysiology team, Dr. Guzman on 05/15/2024. He was scheduled for and underwent a Watchman device placement in November 2024 followed by DC cardioversion. He was taken off his anticoagulation and put on aspirin and Plavix. He is having some bruising there. He tells me that they are moving to [place] and he want to establish with a group work program aide in that area. He denies chest, arm, jaw, or neck discomfort. He acknowledges palpitations that he describes as a flutter sensation. He denies bilateral lower extremity edema. He denies claudication. He states shortness of breath with activity such as talking. He denies shortness of breath at rest, orthopnea, or PND. He denies chronic cough. He denies significant, sudden weight gain. He denies lightheadedness, dizziness, near-syncope, or syncope. He denies blood in urine, blood in stool, or epistaxis. He denies fever with chills. He denies myalgia. He states fatigue. His exercise level has remained stable. 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: No Accompanied by: Significant Other Is patient in pain?: No Allergies hydrocodone (From Vicodin) Allergy (Mild, Verified 01/19/25 10:13) Nausea oxycodone (From Percocet) Adverse Reaction (Intermediate, Verified 01/19/25 10:13) nausea Medications ???Medication ???Instructions ???Recorded ???Confirmed ???Type multivitamin with folic acid 400 1 tab PO DAILY 10/06/13 01/19/25 H istory mcg tablet bupropion HCl 300 mg 24 hr tablet, 300 mg PO QAM 07/05/17 01/19/25 History extended release triamcinolone acetonide 55 mcg 2 spray intranasal QDAY 09/24/17 1 History nasal spray aerosol (Nasacort) coenzyme Q10 100 mg capsule 100 mg PO DAILY 08/21/19 01/19/25 History zinc 50 mg tablet 50 mg PO DAILY 08/23/20 01/19/25 H istory biotin 5 mg capsule 5 mg PO DAILY 10/16/22 01/19/25 Hi story losartan 50 mg tablet 50 mg PO DAILY #90 tabs 01/08/24 1 Rx amoxicillin 500 mg capsule 2,000 mg PO ONCE PRN 04/17/2401/06 History lorazepam 0.5 mg tablet 0.25 mg PO DAILY PRN PRN Anxiety 0 07/22/24 01/19/25 History atorvastatin 40 mg tablet 40 mg PO QHS #90 TABLETS 11/05/24 01/19/25 Rx aspirin 81 mg tablet,delayed 81 mg PO QDAY 01/19/25 01/19/25 Hi story release (Adult Aspirin Regimen) clopidogrel 75 mg tablet (Plavix) 75 mg PO DAILY To discontinue 01/19/25 History Xarelto. 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 Rocky Nelson MD) Presence of Watchman left atrial appendage closure device ( 11/2024) H/O transurethral destruction of bladder lesion (10/25 (more content not included)... Normal [facility] 01-06-2025 CNOV Office Visit (AGCARD POB) -- RYLEY MCKEON ([id number]) 1945 M Date Time Provider Department 01/06/25 2:30 PM ALINE VAZQUEZ AGCARDPOB During your visit today, we recorded the following information about you: Pulse Blood pressure Weight 67/minute 132/70 67.1 kg Aline Vazquez APRN.HOME HEALTH CLINICIAN 01/06/2025 4:38 PM Signed [facility] Card[facility] Electrophysiology PRIMARY CARE PHYSICIAN: Johnnie Ross [address] [place] [address] CHIEF COMPLAINT: Cardiovascular medicine follow up for arrhythmia and Watchman. HISTORY OF PRESENT ILLNESS: Mr. Mckeon is a 79 year old male who presents today for follow-up regarding arrhythmia and Watchman. The patient is a 79-year-old male with a history of mitral valve disease, atrial fibrillation, and recent Watchman device implantation and catheter ablation, presenting for follow-up. The patient underwent mitral valve repair in 2000. In late March 2017 or early April 2017, he experienced significant fatigue and was diagnosed with atrial fibrillation with RVR. He was admitted to [facility], treated with IV heparin and amiodarone, and underwent YURIDIA-guided cardioversion. Atrial fibrillation recurred within a week, necessitating a second cardioversion. Due to challenges with bradycardia, catheter ablation was recommended, but he initially deferred the procedure. On 11/17/2024, he underwent catheter ablation and Watchman device implantation. Post-procedure, he was discharged on Xarelto 20 mg daily and aspirin EC 81 mg daily. A YURIDIA on 01/01/2025 showed no bruno-device leak or device-related thrombus. He reports feeling sluggish but denies chest pain, dyspnea, lightheadedness, or dizziness. He notes occasional sensations of fullness in the chest, similar to experiences during long-distance running. He denies any recent bleeding issues on Xarelto and has not experienced recurrent hematuria. He received flu and COVID-19 vaccinations recently and took Tylenol and Advil for mild symptoms afterward, feels better today. He does not use CPAP for sleep apnea but manages symptoms by sleeping on his side and using Nasacort. He is currently taking Xarelto 20 mg in the evening and aspirin EC 81 mg daily. PAST MEDICAL HISTORY Diagnosis Date At risk for bleeding associated with anticoagulants 05/16/2024 At risk for stroke Atrial flutter (HCC) probably atypical form; symptomatic Bradycardia sinus bradycardia Coronary artery disease involving [place] coronary artery of [place] heart without angina pectoris Dr Nelson--[facility] Dyslipidemia Erectile dysfunction, unspecified erectile dysfunction type Gross hematuria 05/16/2024 Hemorrhage of gastrointestinal tract, unspecified HTN (hypertension) Internal hemorrhoids without mention of complication detention (current) use of anticoagulants apixaban (Eliquis); indication: stroke prevention AF Macular hole of right eye 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 Langston ([facility]) in 2008, considered to be benign PVCs; improved with beta-michell but developed fatigue, then treated with verapamil Presence of Watchman left atrial appendage closure device 24 mm [employer] Watchman Pro FLX left atiral appendage closure device implanted 11/17/2024 Prostate cancer (HCC) followed by Dr. 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 Guzman ATRIAL FIBRILLATION/FLUTTER ABLATION Right 11/17/2024 typical right atrial flutter circuit (cavotricuspid isthmus) RF catheter ablation; [facility] Dr. Guzman CARDIAC CATH 06/23/2008 reportedly minimal CAD CARDIAC CATH 06/23/2008 LVEF 55%; LAD 10% prox, D1 20-30% ostial, LCX normal, RCA 10-20% prox, right AV branch 10-20%, right PL branch 10-20% CARDIAC STRESS TEST 06/16/2008 no stress-induced myocardial ischemia CARDIOVERSION, ELECTIVE, ELECTRICAL 04/24/2017 (more content not included)... Normal [facility] BRIEF OP NOTon 01-01-2025 BRIEF OP NOT HNO ID: [id number] Author: VIRIDIANA LLANES MD Service: Clinical Cardiology Author Type: Physician Type: Brief Op Note Filed: 01/01/2025 13:00 Note Text: YURIDIA performed with 2 mg Versed, 50 mcg Fentanyl. Pt tolerated procedure well. Viridiana Llanes MD Normal [facility] ECHO TRANSESOPHAGEALon 01-01 ECHO TRANSESOPHAGEAL Echocardiography Report: Transesophageal Echo [facility] Date of service: 01/01/2025 12:21:20 PM [employer] Ordering physician: ALINE VAZQUEZ Exam indication: 45 day S/P Watchman Technologist: Pauline Brody Interpreting physician: Viridiana Llanes MD PATIENT: Name: MR. RYLEY MCKEON : 1945 Age: 79 years Gender: M Previous cardiovascular interventions: Mitral valve repair Watchman Primary rhythm: sinus. Height: 170.20 cm BSA: 1.79 m Weight: 68.04 kg BMI: 23.5 kg/m Pre Heart rate 63 bpm Blood pressure 138/80 mmHg Color Doppler was utilized to interrogate the cardiac valves assessed and spectral Doppler was utilized to determine the flow velocities and pressure gradients reported in this exam. Medications Total Dose Versed 2.00 mg Fentanyl 50.00 mcg Agitated Saline 10.00 ml Viscous lidocaine x1, Hurricaine spray x1 Exam performed under moderate sedation with continuous ECG, pulse oximetry and cardiopulmonary monitoring by nursing, overseen by the performing physician(s), for an intraservice time of 19 min. (Stop Time: 12:56 PM) No specimens collected. No blood loss. The interpreting physician was present for and actively participated in the YURIDIA procedure. MEASUREMENTS: Value Normal Ejection Fraction 55 % (visual est.) EF > 52 FINDINGS: LEFT VENTRICLE Left ventricular systolic function is normal. RIGHT VENTRICLE LEFT ATRIUM A WATCHMAN left atrial appendage closure device has been implanted. There is no bruno-device leak. MITRAL VALVE Post mitral valve repair. There is trace mitral valve regurgitation. The peak valve gradient is 9 mmHg. The mean valve gradient is 3 mmHg. TRICUSPID VALVE AORTIC VALVE The peak gradient is 3 mmHg (peak velocity = 88.8 cm/s). The mean gradient is 2 mmHg. The aortic VTI is 15.5 cm. The mean velocity in the aortic valve is 64.0 cm/s. PULMONIC VALVE INTERATRIAL SEPTUM There is no patent foramen ovale as detected by Doppler and saline contrast following the Valsalva maneuver. There is no evidence of intracardiac shunting as detected by Doppler, agitated saline contrast and agitated saline contrast following the Valsalva maneuver. CONCLUSIONS: - Exam indication: 45 day S/P Watchman - Left ventricular systolic function is normal. EF = 55 5% (visual est.) - No color flow seen around the edges of the Watchman device, at multiple angles .No bruno device leak seen on the study. - Post mitral valve repair. There is trace mitral valve regurgitation. The peak gradient is 9 mmHg and the mean gradient is 3 mmHg. Gradients measured at a heart rate of 61 bpm. - There is no evidence of intracardiac shunting as detected by Doppler, agitated saline contrast and agitated saline contrast following the Valsalva maneuver. There is no patent foramen ovale as detected by Doppler and saline contrast following the Valsalva maneuver. - Exam was compared with the prior CC echocardiographic exam performed on 11/17/2024. (YURIDIA). * * * Final * * * [employer] : [id number] Normal [facility] HISTORY PHYSICALon HISTORY PHYSICAL HNO ID: [id number] Author: VIRIDIANA LLANES MD Service: Clinical Cardiology Author Type: Physician Type: H&P Filed: 01/01/2025 12:28 Note Text: PROGRESS NOTE CARDIOLOGY SERVICE SUBJECTIVE Subjective INTERVAL HPI: Mr Mckeon had a watchman device implanted by Dr Guzman on 11/17/24. Here for post watchman assessment. Denies CP, dyspnea. PMH: Atrial fibrillation SP MV repair Meds, ALLERGIES: See MRF Soc H: Occasional alcohol, no smoking, no recreational drugs Objective PHYSICAL EXAM: There is no height or weight on file to calculate BMI. No data recorded There were no vitals taken for this visit. Eyes: No subconjunctival hemorrhage Skin: No rash, bruising Neck: no jugular venous distention, no carotid bruits. Lungs: Clear to auscultation bilaterally, no wheezing or rhonchi. Heart: S1, S2 normal, - murmur Extremities: - peripheral edema MEDICATIONS: No current facility-administered medications for this encounter. DATA: Past 72 Hour Labs: No results found for: HSTNT No results found for: PBNP Last Lab Drawn: Triglyceride 46 08/22/2024 HDL Cholesterol 43 08/22/2024 LDL Cholesterol, Calculated 68 08/22/2024 Cholesterol, Total 122 08/22/2024 Assessment/Plan Active Problems: * No active hospital problems. * Resolved Problems: * No resolved hospital problems. * Plan: Proceed with YURIDIA to assess LA appendage Viridiana Llanes MD SIGNATURE: Viridiana Llanes MD PATIENT NAME: Ryley Mckeon PAGER/CONTACT #: [phone] [facility] OPERATIVE NOon 01-01-2025 OPERATIVE NO HNO ID: [id number] Author: VIRIDIAAN LLANES MD Service: Clinical Cardiology Author Type: Physician Type: Operative Report Filed: 01/01/2025 13:02 Note Text: OPERATIVE NOTE (Transesophageal echocardiogram) SURGERY DATE: 01/01/2025 Proceduralist(s) and Modern Dancer(s): Viridiana Llanes MD, [facility] Procedures: Informed consent obtained after explanation of risks and benefits. Patient was brought to the transesophageal echo lab in a fasting state. The oropharynx was anesthetized using viscous lidocaine and hurricaine spray. Moderate sedation was achieved with Cardiac Anesthesia: 2 mg Versed and 50 mcg Fentanyl . Esophageal Intubation: Esophageal intubation was performed without difficulty, and desired cardiac views were obtained. The probe was then withdrawn. No complications occurred during the procedure. Findings: I. Chambers : LVEF: 55%. LA: WATCHMAN device seen in LA appendage. No leak seen around the device. No thrombi on the device. RA: Normal RV: Normal Cardiac shunt:None seen by bubble study and color II. Valves: A. Aortic: Normal. No aortic insufficiency. Gradients: Normal. Vegetations: None. B. Mitral: Trivial regurgitation. SP MV repair. Repair intact. Vegetations: None. C. Tricuspid: Trivial regurgitation. Vegetations: None. D. Pulmonic:Mild pulmonic regurgitation. III. Pericardium: No pericardial effusion. IV. Aorta: Normal Estimated blood loss: None Complications: None SIGNATURE: Viridiana Llanes MD PATIENT NAME: Ryley Mckeon DATE: January 01, 2025 TIME: 1:00 PM PAGER/CONTACT #: [phone] Normal [facility] ANES POSTPROC EVALon 025 ANES POSTPROC EVAL HNO ID: [id number] Author: BENJI OCONENLL MD Service: Anesthesiology Author Type: Anesthesiologist Type: Anesthesia Postprocedure Evaluation Filed: 12/14/2024 10:22 Note Text: POST ANESTHESIA EVALUATION NOTE : 1945 Procedure Summary Date: 12/14/24 Room / Location: [place] [address] / [facility] Anesthesia Start: 838 Anesthesia Stop: 909 Procedure: CARDIOVERSION EXTERNAL ELECTIVE (Cardiac) Diagnosis: Persistent atrial fibrillation (HCC) (Persistent atrial fibrillation (HCC) [I48.19]) Surgeons: Trey Guzman MD Responsible Provider: Benji Oconnell MD Anesthesia Type: MAC ASA Status: 3 Anesthesia Type: MAC Last Vitals Vitals Value Taken Time BP 112/80 12/14/24 09:50 Temp 12/14/24 10:22 Pulse 84 12/14/24 09:59 Resp 16 12/14/24 09:59 SpO2 97 % 12/14/24 09:59 Vitals shown include unfiled device data. Post Anesthesia Patient Status Patient Evaluation: bedside. Anticipated Disposition: phase 2 then home. Neurological Status: aware and responsive. Pulmonary Status: breathing comfortably on room air Airway Control: returned to baseline unsupported. Cardiovascular Status: stable. Pain Management: clinically adequate Postoperative Hydration: acceptable. Intraoperative Events: no significant anesthesia events Post Operative Nausea/Vomiting Status: no significant post operative nausea or vomiting Recommendation: continue current plan of care. Anesthesia Observations No Documentation SIGNATURE: Benji Oconnell MD PATIENT NAME: Ryley Mckeon DATE: December 14, 2024 TIME: 10:22 AM CSN: [id number] Normal [facility] ANES PRE-OPon 12-14-2024 ANES PRE-OP HNO ID: [id number] Author: BENJI OCONNELL MD Service: Anesthesiology Author Type: Anesthesiologist Type: Anesthesia Preprocedure Evaluation Filed: 12/14/2024 08:17 Note Text: ANESTHESIOLOGY DAY OF SURGERY NOTE : 1945 Procedure Information Date/Time: 12/14/24 0800 Procedure: CARDIOVERSION EXTERNAL ELECTIVE (Cardiac) - hANDp on 11/18 (Carmine Vazquez CLERK GENERAL, discharge summary for Watchman implant) POD; same day D/C Location: [facility] / [facility] Surgeons: Trey Guzman MD Estimated body mass index is 23.49 kg/m? as calculated from the following: Height as of 11/17/24: 170.2 cm (5' 7). Weight as of 11/17/24: 68 kg (150 lb). Most recent hematocrit and potassium results: Hematocrit 36.8 11/18/2024 Potassium 3.7 11/18/2024 Relevant Problems ANESTHESIA (+) At risk for bleeding associated with anticoagulants (+) LISSETTE (obstructive sleep apnea) CARDIO (+) Atrial flutter (HCC) (+) CAD (coronary artery disease) (+) Essential (primary) hypertension (+) MVP (mitral valve prolapse) (+) Mitral valve prolapse (+) Myxomatous mitral valve regurgitation (+) Persistent atrial fibrillation (HCC) (+) Premature ventricular contractions (PVCs) (VPCs) (+) Sinus node dysfunction (HCC) GI (+) Gastroesophageal reflux disease without esophagitis PULMONARY (+) LISSETTE (obstructive sleep apnea) I - PHYSICAL EVALUATION AIRWAY Patient intubated: No. Tracheostomy tube not present Mallampati: II. TM distance: >3 FB. Neck ROM: full ROM without neurological symptoms. Mouth opening: >3 FB. Short neck: no. Thick neck: no DENTAL Dental findings: teeth intact. II - ANESTHESIA PLAN ASA Score: 3 Anesthetic Plan: MAC NPO Status: adequate Monitoring Plan Monitoring plan: standard ASA. Post Procedure Analgesic Plan Postoperative analgesic plan: multimodal analgesia. Informed Consent Anesthetic risks, benefits, alternatives, personnel and consent discussed: yes. Patient / Responsible Green Party agrees to proceed: yes Patient / Surrogate agrees to blood products: blood products not planned Significant changes in the patient condition since the History and Physical, not otherwise documented in primary service progress note: no. Potential Anesthesia issues that may suggest increased risk of complications or contraindication to planned procedure: none. No vitals data found for the desired time range. No current facility-administered medications on file as of 12/14/2024. Outpatient Medications as of 12/14/2024 Medication Sig aspirin, enteric coated (ASPIRIN, ENTERIC COATED) 81 mg EC tablet Take 1 tablet by mouth once daily. atorvastatin (LIPITOR) 40 mg tablet Take 1 tablet by mouth daily at bedtime. sodium chloride 0.9 %, flush, (BD POSIFLUSH) syringe Inject 2-10 mL intravenously as directed. For Echo procedure MEDICATION, NON-DATABASE Take 1 capsule by mouth once daily. Zinc complex with quercetin and vitamin C amoxicillin (AMOXIL) 500 mg capsule Take by mouth four times daily. Prior to dental appointment (Patient taking differently: Take by mouth four times daily. Prior to dental appointment) losartan (COZAAR) 50 mg tablet Take 1 tablet by mouth once daily. (Dr. Nelson) buPROPion XL (WELLBUTRIN XL) 300 mg 24 hr tablet Take 1 tablet by mouth once daily. XARELTO 20 mg tablet Take 20 mg by mouth daily at bedtime. coenzyme Q10 (COENZYME Q-10) 100 mg cap capsule Take 100 mg by mouth once daily. triamcinolone acetonide (NASACORT NASAL) Use in the nose once daily. BIOTIN ORAL Take 5,000 mcg by mouth once daily. MULTIVITAMIN TAB Take one(1) tablet by mouth daily. I have interviewed and examined the patient. I have reviewed the medical record and/or the pre-anesthesia evaluation, pertinent labs, and test results. This contains updated information obtained within 48 hours of Surgery/Procedure. SIGNATURE: Benji Oconnell MD PATIENT NAME: Ryley Mckeon DATE: December 14, 2024 TIME: 8:17 AM CSN: [id number] Normal [facility] Basic metabolic 2000 panelon 12-14-2024 Anion gap [Moles/Vol] 10 mmol/L Normal 8-15 [facility] Comment on above: Order Comment: Speci men Type: BLOOD SPECIMENOrdering Facility: [facility] Address: [address] [place] [address] Performed By: #### 2 4321-2 ####[facility] LABORATORYCLIA [id number] [place] [address] [place] Calcium [Mass/Vol] 8.7 mg/dL Normal 8.5-10.2 [facility] Comment on above: Order Comment: Speci men Type: BLOOD SPECIMENOrdering Facility: [facility] Address: [address] [place] [address] Performed By: #### 2 4321-2 ####[facility] LABORATORYCLIA [id number] [place] [address] [place] Chloride [Moles/Vol] 106 mmol/L Normal 98-107 [facility] Comment on above: Order Comment: Speci men Type: BLOOD SPECIMENOrdering Facility: [facility] Address: [address] [place] [address] Performed By: #### 2 4321-2 ####[facility]ORATORYCLIA [id number] [place] [address] [place] CO2 [Moles/Vol] 25 mmol/L Normal 22-30 [facility] Comment on above: Order Comment: Speci men Type: BLOOD SPECIMENOrdering Facility: [facility] Address: [address] [place] [address] Performed By: #### 2 4321-2 ####[facility] LABORATORYCLIA [id number] [place] [address] [place] Creatinine [Mass/Vol] 0.83 mg/dL Normal 0.73-1.22 [facility] Comment on above: Order Comment: Speci men Type: BLOOD SPECIMENOrdering Facility: [facility] Address: [address] [place] [address] Performed By: #### 2 4321-2 ####[facility]ITALIA [id number] [address] [place] eGFRcr SerPlBld CKD-EPI 2020 90 mL/min/1.73m??? Normal >=60 [facility] Comment on above: Order Comment: Walt erin Type: BLOOD SPECIMENOrdering Facility: [facility] Address: [address] [place] [address] Result Comment: Denisse mated Glomerular Filtration Rate (eGFR) is calculated using the 2020 CKD-EPI creatinine equation. This equation utilizes serum creatinine, sex, and age as parameters. The creatinine assay has traceable calibration to isotope dilution-mass spectrometry. Refer to KDIGO guidelines for clinical interpretation. In patients with unstable renal function, e.g. those with acute kidney injury, the eGFR may not accurately reflect actual GFR. Performed By: #### 2 4321-2 ####[facility] [id number] [place] [address] [place] Glucose [Mass/Vol] 113 mg/dL High 74-99 [facility] Comment on above: Order Comment: Walt khan Type: BLOOD SPECIMENOrdering Facility: [facility] Address: [address] [place] [address] Result Comment: The [place] Diabetes Association (ADA) provides guidance for cutoff values for fasting glucose and random glucose. The ADA defines fasting as no caloric intake for at least 8 hours. Fasting plasma glucose results between 100 to 125 mg/dL indicate increased risk for diabetes (prediabetes). Fasting plasma glucose results greater than or equal to 126 mg/dL meet the criteria for diagnosis of diabetes. In the absence of unequivocal hyperglycemia, results should be confirmed by repeat testing. In a patient with classic symptoms of hyperglycemia or hyperglycemic crisis, random plasma glucose results greater than or equal to 200 mg/dL meet the criteria for diagnosis of diabetes. Reference: Standards of Medical Care in Diabetes 2016, [place] [employer] Association. Diabetes Care. 2016.39(Suppl 1). Performed By: #### 2 4321-2 ####[facility]ITALIA [id number] [place] [address] [place] Potassium [Moles/Vol] 4.1 mmol/L Normal 3.7-5.1 [facility] Comment on above: Order Comment: Speci men Type: BLOOD SPECIMENOrdering Facility: [facility] Address: [address] [place] [address] Performed By: #### 2 4321-2 ####[facility] LABORATORYCLIA [id number] [place] [address] [place] Sodium [Moles/Vol] 141 mmol/L Normal 136-144 [facility] Comment on above: Order Comment: Speci men Type: BLOOD SPECIMENOrdering Facility: [facility] Address: [address] [place] [address] Performed By: #### 2 4321-2 ####[facility] LABORATORYCLIA [id number] [address] [place] Urea nitrogen [Mass/Vol] 16 mg/dL Normal 9-24 [facility] Comment on above: Order Comment: Speci men Type: BLOOD SPECIMENOrdering Facility: [facility] Address: [address] [place] [address] Performed By: #### 2 4321-2 ####[facility] LABORATORYCLIA [id number] [address] [place] CBC panel Auto (Bld)on 12-14 Erythrocyte distribution width (RBC) [Ratio] 13.0 % Normal 11.5-15.0 [facility] Comment on above: Order Comment: Speci men Type: BLOOD SPECIMENOrdering Facility: [facility] Address: [address] [place] [address] Performed By: #### 5 8410-2 ####[facility] LABORATORYCLIA [id number] [address] [place] [facility] Hematocrit (Bld) [Volume fraction] 42.0 % Normal 39.0-51.0 [facility] Comment on above: Order Comment: Speci men Type: BLOOD SPECIMENOrdering Facility: [facility] Address: [address] [place] [address] Performed By: #### 5 8410-2 ####[facility] LABORATORYCLIA [id number] [address] Hemoglobin (Bld) [Mass/Vol] 14.1 g/dL Normal 13.0-17.0 [facility] Comment on above: Order Comment: Speci men Type: BLOOD SPECIMENOrdering Facility: [facility] Address: [address] [place] [address] Performed By: #### 5 8410-2 ####[facility] LABORATORYCLIA [id number] [address] [place] [facility] MCH (RBC) [Entitic mass] 31.1 pg Normal 26.0-34.0 [facility] Comment on above: Order Comment: Speci men Type: BLOOD SPECIMENOrdering Facility: [facility] Address: [address] [place] [address] Performed By: #### 5 8410-2 ####[facility] LABORATORYCLIA [id number] [address] [place] [facility] MCHC (RBC) [Mass/Vol] 33.6 g/dL Normal 30.5-36.0 [facility] Comment on above: Order Comment: Speci men Type: BLOOD SPECIMENOrdering Facility: [facility] Address: [address] [place] [address] Performed By: #### 5 8410-2 ####[facility] LABORATORYCLIA [id number] [address] [place] [facility] MCV (RBC) [Entitic vol] 92.5 fL Normal 80.0-100.0 [facility] Comment on above: Order Comment: Speci men Type: BLOOD SPECIMENOrdering Facility: [facility] Address: [address] [place] [address] Performed By: #### 5 8410-2 ####[facility] LABORATORYCLIA [id number] [address] Nucleated RBC (Bld) [#/Vol] 10*3/uL Normal <0.01 [facility] Comment on above: Order Comment: Speci men Type: BLOOD SPECIMENOrdering Facility: [facility] Address: [address] [place] [address] Performed By: #### 5 8410-2 ####[facility] LABORATORYCLIA [id number] [place] [address] [place] Platelet mean volume (Bld) [Entitic vol] 8.9 fL Low 9.0-12.7 [facility] Comment on above: Order Comment: Speci men Type: BLOOD SPECIMENOrdering Facility: [facility] Address: [address] [place] [address] Performed By: #### 5 8410-2 ####[facility] LABORATORYCLIA [id number] [address] [place] Platelets (Bld) [#/Vol] 273 10*3/uL Normal 150-400 [facility] Comment on above: Order Comment: Speci men Type: BLOOD SPECIMENOrdering Facility: [facility] Address: [address] [place] [address] Performed By: #### 5 8410-2 ####[facility] LABORATORYCLIA [id number] [place] [address] [place] RBC (Bld) [#/Vol] 4.54 10*6/uL Normal 4.20-6.00 [facility] Comment on above: Order Comment: Speci men Type: BLOOD SPECIMENOrdering Facility: [facility] Address: [address] [place] [address] Performed By: #### 5 8410-2 ####[facility] LABORATORYCLIA [id number] [place] [address] [place] WBC (Bld) [#/Vol] 6.80 10*3/uL Normal 3.70-11.00 [facility] Comment on above: Order Comment: Speci men Type: BLOOD SPECIMENOrdering Facility: [facility] Address: [address] [place] [address] Performed By: #### 5 8410-2 ####[facility] LABORATORYCLIA [id number] [address] OF [facility] CNDSon 12-14-2024 CNDS HNO ID: [id number] Author: TREY GUZMAN MD Service: Electrophysiology Author Type: Physician Type: Discharge Summary Filed: 12/14/2024 09:15 Note Text: DISCHARGE NOTE (Patient Admitted Less than 48 Hours) [facility] Electrophysiology (EP) SERVICE DATE: 12/14/2024 SERVICE TIME: 9:14 AM ADMISSION DATE: 12/14/2024 DISCHARGE DATE: 12/14/2024 DISCHARGE DISPOSITION: Home with Self Care PROCEDURE: electrical cardioversion 12/14/2024 for atrial flutter (successful) DIET: Low salt, low cholesterol, Cardiac ACTIVITY AFTER DISCHARGE: Resume pre-hospital activity No driving for one days FOLLOW UP CARE REQUIRED: follow up as already scheduled DISCHARGE MEDICATIONS: Medication List CONTINUE taking these medications amoxicillin 500 mg capsule Commonly known as: AMOXIL aspirin, enteric coated 81 mg EC tablet Commonly known as: ASPIRIN, ENTERIC COATED Take 1 tablet by mouth once daily. atorvastatin 40 mg tablet Commonly known as: LIPITOR Take 1 tablet by mouth daily at bedtime. BIOTIN PO buPROPion XL 300 mg 24 hr tablet Commonly known as: WELLBUTRIN XL Take 1 tablet by mouth once daily. coenzyme Q10 100 mg Cap capsule Commonly known as: COENZYME Q-10 losartan 50 mg tablet Commonly known as: COZAAR Take 1 tablet by mouth once daily. (Dr. Nelson) MEDICATION, NON-DATABASE multivitamin tablet NASACORT NASAL sodium chloride 0.9 % (flush) syringe Commonly known as: BD POSIFLUSH Inject 2-10 mL intravenously as directed. For Echo procedure XARELTO 20 mg tablet Generic drug: rivaroxaban FINAL DIAGNOSIS: Active Hospital Problems Diagnosis POA Persistent atrial fibrillation (HCC) Yes Presence of Watchman left atrial appendage closure device Yes Resolved Hospital Problems No resolved problems to display. SIGNATURE: Trey Guzman MD PATIENT NAME: Ryley Mckeon DATE: December 14, 2024 TIME: 9:14 AM Normal [facility] HISTORY PHYSICALon HISTORY PHYSICAL HNO ID: [id number] Author: TREY GUZMAN MD Service: Electrophysiology Author Type: Physician Type: H&P Filed: 12/14/2024 08:51 Note Text: HANDP: CARDIOLOGY SERVICE [facility] Electrophysiology (EP) SERVICE DATE: 12/14/2024 SERVICE TIME: 8:43 AM CONSULTING PHYSICIAN: Trey Guzman PCP: Johnnie Ross MD ATTENDING: Trey Guzman MD REASON FOR PRESENTATION: Arrhythmias Subjective CHIEF COMPLAINT: Persistent atrial fibrillation (HCC) [I48.19] HISTORY OF PRESENT ILLNESS: Mr. Mckoen is a 79 year old male who presents for scheduled electrical cardioversion. Mr. Mckeon has a history of mitral valve disease with mitral regurgitation. He underwent mitral valve repair by Dr. Winters at the [facility] in 2000. He was feeling poorly in late March 2017 or early April 2017, with primarily fatigue. He presented to his PCP in mid April 2017 and an EKG revealed atrial fibrillation or atrial flutter with rapid ventricular response rates. He was admitted to [facility] and treated with IV heparin and IV amiodarone. He was evaluated by a group work program aide, Dr. Borges. He underwent YURIDIA-guided DC cardioversion. The atrial fibrillation recurred and within a week he underwent a second cardioversion procedure. Medical treatments were challenging due to bradycardia. He underwent atrial fibrillation catheter ablation 11/17/2024 with concomitant Watchman left atrial appendage closure device implant. He developed recurrent atrial fibrillation, symptomatic. He has palpitations and fatigue. No chest pain or shortness of breath, severe lightheadedness, near syncope or syncope. He presents for electrical cardioversion. 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 Langston ([facility]) in 2008, considered to be benign PVCs; improved with beta-michell but developed fatigue, then treated with verapamil Presence of Watchman left atrial appendage closure device 24 mm [employer] Watchman Pro FLX left atiral appendage closure device implanted 11/17/2024 Prostate cancer (HCC) followed by Dr. 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 Guzman ATRIAL FIBRILLATION/FLUTTER ABLATION Right 11/17/2024 typical right atrial flutter circuit (cavotricuspid isthmus) RF catheter ablation; [facility] Dr. Guzman CARDIAC CATH 06/23/2008 reportedly minimal CAD CARDIAC CATH 06/23/2008 LVEF 55%; LAD 10% prox, D1 20-30% ostial, LCX normal, RCA 10-20% prox, right AV branch 10-20%, right PL branch 10-20% CARDIAC STRESS TEST 06/16/2008 no stress-induced myocardial ischemia CARDIOVERSION, ELECTIVE, ELECTRICAL 04/24/2017 CARDIOVERSION, ELECTIVE, ELECTRICAL 04/30/2017 CATARACT EXTRACTION HX Left 10/2016 CATARACT EXTRACTION HX Right 11/2016 COLONOSCOPY FLX DX W/COLLJ SPEC WHEN PFRMD 08/28/2005 Colonoscopy ECHOCARDIOGRAM 07/31/2016 LVEF 60% ECHOCARDIOGRAM 07/31/2016 LVEF 60%; trivial MR with stable annuloplasty ring; mild TR EYE SURGERY HX Right 12/2016 HOLTER MONITOR 48 HOUR 04/26/2017 sinus rhythm with AF/flutter, max HR 154 bpm; reported symptoms correlated with AF and atrial flutter INGUINAL HERNIA REPAIR HX Right 1969 KNEE SURGERY HX Left 2006 arthroscopy MITRAL VALVE SURGERY HX 10/04/[facility]AST [facility]/31/2008 [facility]: LVEF 59%; normal RV (more content not included)... Normal [facility] CNPNon 12-03-2024 CNPN Telephone (AGCARDPOB ) -- RYLEY MCKEON ([id number]) 1945 M Date Time Provider Department 12/03/24 TREY GUZMAN AGCARDSU During your visit today, we recorded the following information about you: Jazmin Olmstead 12/03/2024 2:33 PM Signed Patient is scheduled for a cardioversion on 12/[address] Guzman. The hospital will call the day before between 2-5pm with your arrival time. You should not eat or drink after midnight the night before the procedure. 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 You should continue to take medications as prescribed the morning of the procedure with just a sip of water. Spoke with Ryley Mckeon on December 03, 2024. Informed of instructions as stated above. Patient verbalized understanding. Jazmin Olmstead Allergies As of Date: 12/03/2024 Noted Allergy Reaction HYDROCODONE 02/11/2018 11 - Vomiting OXYCODONE 02/11/2018 11 - Vomiting PERCOCET (OXYCODONE-ACETAMINOPHEN)0 05/01/2017 8 - GI Upset Date Reviewed: 11/18/2024 Reviewed by: Monalisa Vazquez, RN - Fully Assessed Reason for Visit: Preparations For Procedures [899] Prescriptions as of 12/03/2024 - aspirin, enteric coated (ASPIRIN, ENTERIC COATED) 81 mg EC tablet Take 1 tablet by mouth once daily. - atorvastatin (LIPITOR) 40 mg tablet Take 1 tablet by mouth daily at bedtime. - sodium chloride 0.9 %, flush, (BD POSIFLUSH) syringe Inject 2-10 mL intravenously as directed. For Echo procedure - MEDICATION, NON-DATABASE Take 1 capsule by mouth once daily. Zinc complex with quercetin and vitamin C - amoxicillin (AMOXIL) 500 mg capsule Take by mouth four times daily. Prior to dental appointment - losartan (COZAAR) 50 mg tablet Take 1 tablet by mouth once daily. (Dr. Nelson) - buPROPion XL (WELLBUTRIN XL) 300 mg 24 hr tablet Take 1 tablet by mouth once daily. - XARELTO 20 mg tablet Take 20 mg by mouth daily at bedtime. - coenzyme Q10 (COENZYME Q-10) 100 mg cap capsule Take 100 mg by mouth once daily. - triamcinolone acetonide (NASACORT NASAL) Use in the nose once daily. - BIOTIN ORAL Take 5,000 mcg by mouth once daily. - MULTIVITAMIN TAB Take one(1) tablet by mouth daily. 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 [Z79.* At risk for stroke [Z91.89] Persistent atrial fibrillation (HCC) [I48.19] Bradycardia [R00.1] Sinus bradycardia [R00.1] 06/13/2021 Premature ventricular contractions (PVCs) (VPCs* Atrial flutter (HCC) [I48.92] Sinus node dysfunction (HCC) [I49.5] Malignant neoplasm of prostate (HCC) [C61] 03/16/2021 Anxiety and depression [F41.9, F32.A] 06/13/2021 LISSETTE (obstructive sleep apnea) [G47.33] 06/13/2021 CAD (coronary artery disease) [I25.10] 06/13/2021 Essential (primary) hypertension [I10] 06/13/2021 Dyslipidemia [E78.5] 06/13/2021 Tricuspid insufficiency [I07.1] 06/13/2021 Systolic dysfunction [I51.9] 06/13/2021 Mitral valve prolapse [I34.1] 08/07/2010 Myxomatous mitral valve regurgitation [I34.0] 05/14/2024 Gross hematuria [R31.0] 05/16/2024 At risk for bleeding associated with anticoagul*05/16/2024 Preop examination [Z01.818] 11/09/2024 11/15/2024 Gastroesophageal reflux disease without esophag*11/11/2024 Presence of Watchman left atrial appendage clos* Status post catheter ablation of atrial fibrill* Status post catheter ablation of atrial flutter* Encounter Status:Closed by JAZMIN OLMSTEAD on 12/03/24 [facility] 11-25-2024 CNPN Telephone (AGCARDPOB ) -- RYLEY MCKEON ([id number]) 1945 M Date Time Provider Department 11/25/24 ALINE VAZQUEZ AGCARDPOB During your visit today, we recorded the following information about you: Aline Vazquez APRN.CNP 11/25/2024 5:11 PM Signed Steve was called today for 1 week post watchman follow-up (also had PFA at time of Watchman impalnt), he continues to take Xarelto 20 mg daily and aspirin EC 81 mg daily without any bleeding issues, states his groin sites healed up well. He reports experiencing some weakness with the atrial team flutter episode in progress. He is asking if he should go back on the metoprolol, we discussed the metoprolol was discontinued due to bradycardia and junctional rhythm post ablation, will await for Dr. Guzman to review and likely plan for cardioversion. Reminded Steve of 45-day post watchman YURIDIA scheduled 01/01/2025, appointment to review results 01/06/2025 and 6-month follow-up with Dr. Guzman 05/21/2025. Steve verbalizes understanding and will call in the interim with any questions or concerns. Aline Vazquez APRN.CNP Allergies As of Date: 11/25/2024 Noted Allergy Reaction HYDROCODONE 02/11/2018 11 - Vomiting OXYCODONE 02/11/2018 11 - Vomiting PERCOCET (OXYCODONE-ACETAMINOPHEN)0 05/01/2017 8 - GI Upset Date Reviewed: 11/18/2024 Reviewed by: Monalisa Vazquez RN - Fully Assessed Reason for Visit: Procedure Follow Up [1139] Prescriptions as of 11/25/2024 - aspirin, enteric coated (ASPIRIN, ENTERIC COATED) 81 mg EC tablet Take 1 tablet by mouth once daily. - atorvastatin (LIPITOR) 40 mg tablet Take 1 tablet by mouth daily at bedtime. - sodium chloride 0.9 %, flush, (BD POSIFLUSH) syringe Inject 2-10 mL intravenously as directed. For Echo procedure - MEDICATION, NON-DATABASE Take 1 capsule by mouth once daily. Zinc complex with quercetin and vitamin C - amoxicillin (AMOXIL) 500 mg capsule Take by mouth four times daily. Prior to dental appointment - losartan (COZAAR) 50 mg tablet Take 1 tablet by mouth once daily. (Dr. Nelson) - buPROPion XL (WELLBUTRIN XL) 300 mg 24 hr tablet Take 1 tablet by mouth once daily. - XARELTO 20 mg tablet Take 20 mg by mouth daily at bedtime. - coenzyme Q10 (COENZYME Q-10) 100 mg cap capsule Take 100 mg by mouth once daily. - triamcinolone acetonide (NASACORT NASAL) Use in the nose once daily. - BIOTIN ORAL Take 5,000 mcg by mouth once daily. - MULTIVITAMIN TAB Take one(1) tablet by mouth daily. 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 [Z79.* At risk for stroke [Z91.89] Persistent atrial fibrillation (HCC) [I48.19] Bradycardia [R00.1] Sinus bradycardia [R00.1] 06/13/2021 Premature ventricular contractions (PVCs) (VPCs* Atrial flutter (HCC) [I48.92] Sinus node dysfunction (HCC) [I49.5] Malignant neoplasm of prostate (HCC) [C61] 03/16/2021 Anxiety and depression [F41.9, F32.A] 06/13/2021 LISSETTE (obstructive sleep apnea) [G47.33] 06/13/2021 CAD (coronary artery disease) [I25.10] 06/13/2021 Essential (primary) hypertension [I10] 06/13/2021 Dyslipidemia [E78.5] 06/13/2021 Tricuspid insufficiency [I07.1] 06/13/2021 Systolic dysfunction [I51.9] 06/13/2021 Mitral valve prolapse [I34.1] 08/07/2010 Myxomatous mitral valve regurgitation [I34.0] 05/14/2024 Gross hematuria [R31.0] 05/16/2024 At risk for bleeding associated with anticoagul*05/16/2024 Preop examination [Z01.818] 11/09/2024 11/15/2024 Gastroesophageal reflux disease without esophag*11/11/2024 Presence of Watchman left atrial appendage clos* Status post catheter ablation of atrial fibrill* Status post catheter ablation of atrial flutter* Encounter Status:Closed by ALINE VAZQUEZ on 11/25/24 [facility] CNOVon 11-24-2024 CNOV Office Visit (AGCARD POB) -- RYLEY MCKEON ([id number]) 1945 M Date Time Provider Department 11/24/24 2:00 PM NURSE CARD AG [place] [facility] AGCARDPOB During your visit today, we recorded the following information about you: Clarita Mondragon RN 11/24/2024 5:01 PM Signed EKG reviewed. TIMMY Draper Kimberly, GENEVIEVE.HOME HEALTH CLINICIAN 11/24/2024 5:01 PM Signed Reviewed EKG, appears to be atrial flutter with variable AV block, 117 bpm, seems as though the arrhythmia has been persistent based on the recent telephone encounter. He underwent combined ablation (PFA PVI and RF atrial flutter) at time of Watchman procedure with Dr. Guzman 11/17/2024, he may need cardioverted. If patient is agreeable we will have Dr. Guzman review and place procedure request. Thank you. Aline Vazquez APRN.HOME HEALTH CLINICIAN Referring Provider: SELF [200] Allergies As of Date: 11/24/2024 Noted Allergy Reaction HYDROCODONE 02/11/2018 11 - Vomiting OXYCODONE 02/11/2018 11 - Vomiting PERCOCET (OXYCODONE-ACETAMINOPHEN)0 05/01/2017 8 - GI Upset Date Reviewed: 11/18/2024 Reviewed by: Monalisa Vazquez RN - Fully Assessed Reason for Visit: Nurse Visit [792] Cmt: EKG Per vero Vazquez Primary Visit Diagnosis:Persistent atrial fibrillation (HCC) [I48.19] Order(s):ECG B/O W INTERP (MED OFFICE) [ECG06] Order #: [id number] Prescriptions as of 01/04/2025 - aspirin, enteric coated (ASPIRIN, ENTERIC COATED) 81 mg EC tablet Take 1 tablet by mouth once daily. - atorvastatin (LIPITOR) 40 mg tablet Take 1 tablet by mouth daily at bedtime. - sodium chloride 0.9 %, flush, (BD POSIFLUSH) syringe Inject 2-10 mL intravenously as directed. For Echo procedure - MEDICATION, NON-DATABASE Take 1 capsule by mouth once daily. Zinc complex with quercetin and vitamin C - amoxicillin (AMOXIL) 500 mg capsule Take by mouth four times daily. Prior to dental appointment - losartan (COZAAR) 50 mg tablet Take 1 tablet by mouth once daily. (Dr. Nelson) - buPROPion XL (WELLBUTRIN XL) 300 mg 24 hr tablet Take 1 tablet by mouth once daily. - XARELTO 20 mg tablet Take 20 mg by mouth daily at bedtime. - coenzyme Q10 (COENZYME Q-10) 100 mg cap capsule Take 100 mg by mouth once daily. - triamcinolone acetonide (NASACORT NASAL) Use in the nose once daily. - BIOTIN ORAL Take 5,000 mcg by mouth once daily. - MULTIVITAMIN TAB Take one(1) tablet by mouth daily. 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.* At risk for stroke [Z91.89] Persistent atrial fibrillation (HCC) [I48.19] Bradycardia [R00.1] Sinus bradycardia [R00.1] 06/13/2021 Premature ventricular contractions (PVCs) (VPCs* Atrial flutter (HCC) [I48.92] Sinus node dysfunction (HCC) [I49.5] Malignant neoplasm of prostate (HCC) [C61] 03/16/2021 Anxiety and depression [F41.9, F32.A] 06/13/2021 LISSETTE (obstructive sleep apnea) [G47.33] 06/13/2021 CAD (coronary artery disease) [I25.10] 06/13/2021 Essential (primary) hypertension [I10] 06/13/2021 Dyslipidemia [E78.5] 06/13/2021 Tricuspid insufficiency [I07.1] 06/13/2021 Systolic dysfunction [I51.9] 06/13/2021 Mitral valve prolapse [I34.1] 08/07/2010 Myxomatous mitral valve regurgitation [I34.0] 05/14/2024 Gross hematuria [R31.0] 05/16/2024 At risk for bleeding associated with anticoagul*05/16/2024 Preop examination [Z01.818] 11/09/2024 11/15/2024 Gastroesophageal reflux disease without esophag*11/11/2024 Presence of Watchman left atrial appendage clos* Status post catheter ablation of atrial fibrill* Status post catheter ablation of atrial flutter* Encounter Status:Closed by ALINE VAZQUEZ on 11/24/24 Normal [facility] ECG B/O W INTERP (MED OFFICE )on 11-24-2024 Atrial flutter with variable AV block, 117 bpm, QRS 84 ms, QT/QTc 316/440 ms. [facility] 11-23-2024 EMILIAN Telephone (AGCARDPOB ) -- RYLEY MCKEON ([id number]) 1945 M Date Time Provider Department 11/23/24 ALINE VAZQUEZBrooks During your visit today, we recorded the following information about you: Ashlie Juarez LPN 11/23/2024 10:39 AM Signed Patient called [facility] to report heart rate over the last 2 days has been ranging 100-120 consistently, along with some fatigue. Patient had Watchman implanted with PFA atrial fibrillation and RF atrial flutter ablation on 11/17/2024. Patient has upcoming appointment on 01/06/2025. RADHA Phoenix Kimberly, APRN.CNP 11/23/2024 1:35 PM Signed Please have him get an EKG, either in our office or I can enter the order if he would like to have it completed at one of the satellite locations. Thank you. Aline Vazquez APRN.Ashlie Rogers LPN 11/23/2024 2:17 PM Signed Spoke with patient about recommendation to have EKG. Patient verbalizes understanding and is agreeable. Patient is scheduled for EKG at [facility] on 11/24/2024 at 2pm- patient aware of EKG date/time. RADHA Phoenix Stacey, RN 11/25/2024 8:10 AM Signed Aline Vazquez APRN.EMILIA (Nurse Practitioner) Cardiology Reviewed EKG, appears to be atrial flutter with variable AV block, 117 bpm, seems as though the arrhythmia has been persistent based on the recent telephone encounter. He underwent combined ablation (PFA PVI and RF atrial flutter) at time of Watchman procedure with Dr. Guzman 11/17/2024, he may need cardioverted. If patient is agreeable we will have Dr. Guzman review and place procedure request. Thank you. Aline Vazquez APRN.Clarita Martinez, TIMMY 11/25/2024 8:14 AM Signed Spoke with pt. Notified of EKG result and Vero's recommendations. Pt voices understanding. Pt agreeable to CDDV. TIMMY Draper Taylor, LPN 11/25/2024 8:50 AM Signed Mr. Mckeon is calling in asking if he is able to go back on the metoprolol medication at this time for his atrial flutter prior to the cardioversion. Or if that is not advisable at this time. RADHA Marshall Robert A, MD 11/25/2024 6:47 PM Signed [facility] Electrophysiology (EP) Procedure request submitted for electrical cardioversion. Trey Guzman MD November 25, 2024 6:47 PM Trey Guzman MD 11/25/2024 6:49 PM Signed Addended by: TREY GUZMAN on: 11/25/2024 06:49 PM Modules accepted: Deedee Nash LPN 11/30/2024 11:33 AM Signed Spoke with Ryley Mckeon on November 30, 2024. Informed of communication as stated above. Patient is complaining that their heart rate is around 120-130 bpm daily over the past 10 days. They are asking if they can use metoprolol in the interim while waiting for the cardioversion procedure. RADHA Marshall Robert A, MD 12/01/2024 7:02 PM Signed [facility]rophys[facility] (EP) He had severe sinus bradycardia while on metoprolol. So instead he needs the electrical cardioversion ale please. Trey Guzman MD December 01, 2024 7:02 PM Deedee Valiente LPN 12/02/2024 8:12 AM Signed Left message for Mr. Mckeon to call [facility] for recommendations. [facility] phone number provided. RADHA Marshall Taylor, LPN 12/02/2024 10:10 AM Signed Spoke with Ryley Mckeon on December 02, 2024. Informed of recommendations at this time as stated above. Patient voiced understanding at this time. Deedee Valiente LPN Allergies As of Date: 11/23/2024 Noted Allergy Reaction HYDROCODONE 02/11/2018 11 - Vomiting OXYCODONE 02/11/2018 11 - Vomiting PERCOCET (OXYCODONE-ACETAMINOPHEN)0 05/01/2017 8 - GI Upset Date Reviewed: 11/18/2024 Reviewed by: Monalisa Vazquez RN - Fully Assessed Reason for Visit: Patient Update [1234] Primary Visit Diagnosis:Persistent atrial fibrillation (HCC) [I48.19] Order(s):SURGICAL REQUEST - ELECTIVE (11/2019) [[id number]] Order #: [id number]: 1 Prescriptions as of 12/02/2024 - aspirin, enteric coated (ASPIRIN, ENTERIC COATED) 81 mg EC tablet Take 1 tablet by mouth once daily. - atorvastatin (LIPITOR) 40 mg tablet Take 1 tablet by mouth daily at bedtime. - sodium chloride 0.9 %, flush, (BD POSIFLUSH) syringe Inject 2-10 mL intravenously as directed. For Echo procedure - MEDICATION, NON-DATABASE Take 1 capsule by mouth once daily. Zinc complex with quercetin and vitamin C - amoxicillin (AMOXIL) 500 mg capsule Take by mouth four times daily. Prior to dental appointment - losartan (COZAAR) 50 mg tablet Take 1 tablet by mouth once daily. (Dr. Nelson) - buPROPion XL (WELLBUTRIN XL) 300 mg 24 hr tablet Take 1 tablet by mouth once daily. - XARELTO 20 mg tablet Take 20 mg by mouth daily at bedtime. - coenzyme Q10 (COENZYME Q-10) 100 mg cap capsule Take 100 mg by mouth once daily. - triamcinolone acetonide (NASACORT NASAL) Use in (more content not included)... Normal [facility] ANES POSTPROC EVALon 025 ANES POSTPROC EVAL HNO ID: [id number] Author: KAYLEEN TRUONG MD Service: Anesthesiology Author Type: Physician Type: Anesthesia Postprocedure Evaluation Filed: 11/18/2024 16:06 Note Text: POST ANESTHESIA EVALUATION NOTE : 1945 Procedure Summary Date: 11/17/24 Room / Location: [place] [address] / [place] [facility] Anesthesia Start: 0838 Anesthesia Stop: 1544 Procedures: COMPRE EP EVAL ABLTJ ATR FIB PULM VEIN ISOLATION (Cardiac) PERC TRANSCATH CLOSURE LEFT ATRIAL APPENDAGE W/IMPLANT,INCLUSIVE OF FLUORO,TRANSEPTAL PUNCTURE,CATH PLACEMENT(S) ANGIO,WHEN PERFORMED,RAD HANS (Cardiac) ECHOCARDIOGRAM TRANSESOPHOGEAL, REAL TIME W/IMAGE DOCUMENT (2D) Diagnosis: Persistent atrial fibrillation (HCC) At risk for stroke At risk for bleeding associated with anticoagulants Gross hematuria (Persistent atrial fibrillation (HCC) [I48.19]) (At risk for stroke [Z91.89]) (At risk for bleeding associated with anticoagulants [Z91.89]) (Gross hematuria [R31.0]) Surgeons: Trey Guzman MD Responsible Provider: Kayleen Truong MD Anesthesia Type: general ASA Status: 3 Anesthesia Type: general Airway Type: ETT Last Vitals Vitals Value Taken Time BP 116/61 11/17/24 16:30 Temp 36.1 ?C (97 ?F) 11/17/24 16:30 Pulse 48 11/17/24 16:41 Resp 18 11/17/24 16:41 SpO2 96 % 11/17/24 16:41 Vitals shown include unfiled device data. Post Anesthesia Patient Status Anticipated Disposition: inpatient floor planned admission. Neurological Status: aware and responsive. Pulmonary Status: breathing comfortably on room air Airway Control: returned to baseline unsupported. Cardiovascular Status: stable. Pain Management: clinically adequate Postoperative Hydration: acceptable. Intraoperative Events: no significant anesthesia events Post Operative Nausea/Vomiting Status: no significant post operative nausea or vomiting Recommendation: further care per PACU/ICU/floor team. Anesthesia Observations No Documentation SIGNATURE: Kayleen Truong MD PATIENT NAME: Ryley Mckeon DATE: November 18, 2024 TIME: 4:05 PM CSN: [id number] Normal [facility] Basic metabolic 2000 panelon 11-18-2024 Anion gap [Moles/Vol] 8 mmol/L Normal 8-15 [facility] Comment on above: Order Comment: Speci men Type: BLOOD SPECIMENOrdering Facility: [facility] Address: [address] [place] [address] Performed By: #### 2 4321-2 ####[facility] LABORATORYCLIA [id number] [place] [address] [place] Calcium [Mass/Vol] 8.4 mg/dL Low 8.5-10.2 [facility] Comment on above: Order Comment: Speci men Type: BLOOD SPECIMENOrdering Facility: [facility] Address: [address] [place] [address] Performed By: #### 2 4321-2 ####[facility] LABORATORYCLIA [id number] [place] [address] [place] Chloride [Moles/Vol] 106 mmol/L Normal 98-107 [facility] Comment on above: Order Comment: Speci men Type: BLOOD SPECIMENOrdering Facility: [facility] Address: [address] [place] [address] Performed By: #### 2 4321-2 ####[facility] LABORATORYCLIA [id number] [place] [address] [place] CO2 [Moles/Vol] 26 mmol/L Normal 22-30 [facility] Comment on above: Order Comment: Speci men Type: BLOOD SPECIMENOrdering Facility: [facility] Address: [address] [place] [address] Performed By: #### 2 4321-2 ####[facility] LABORATORYCLIA [id number] [place] [address] [place] Creatinine [Mass/Vol] 0.76 mg/dL Normal 0.73-1.22 [facility] Comment on above: Order Comment: Speci men Type: BLOOD SPECIMENOrdering Facility: [facility] Address: [address] [place] [address] Performed By: #### 2 4321-2 ####[facility] LABORATORYCLIA [id number] [place] [address] [place] eGFRcr SerPlBld CKD-EPI 2020 93 mL/min/1.73m??? Normal >=60 [facility] Comment on above: Order Comment: Speci men Type: BLOOD SPECIMENOrdering Facility: [facility] Address: [address] [place] [address] Result Comment: Denisse mated Glomerular Filtration Rate (eGFR) is calculated using the 2020 CKD-EPI creatinine equation. This equation utilizes serum creatinine, sex, and age as parameters. The creatinine assay has traceable calibration to isotope dilution-mass spectrometry. Refer to KDIGO guidelines for clinical interpretation. In patients with unstable renal function, e.g. those with acute kidney injury, the eGFR may not accurately reflect actual GFR. Performed By: #### 2 4321-2 ####[facility] LABORATORYCLIA [id number] [place] [address] [place] Glucose [Mass/Vol] 137 mg/dL High 74-99 [facility] Comment on above: Order Comment: Walt men Type: BLOOD SPECIMENOrdering Facility: [facility] Address: [address] [place] [address] Result Comment: The [place] [employer] (ADA) provides guidance for cutoff values for fasting glucose and random glucose. The ADA defines fasting as no caloric intake for at least 8 hours. Fasting plasma glucose results between 100 to 125 mg/dL indicate increased risk for diabetes (prediabetes). Fasting plasma glucose results greater than or equal to 126 mg/dL meet the criteria for diagnosis of diabetes. In the absence of unequivocal hyperglycemia, results should be confirmed by repeat testing. In a patient with classic symptoms of hyperglycemia or hyperglycemic crisis, random plasma glucose results greater than or equal to 200 mg/dL meet the criteria for diagnosis of diabetes. Reference: Standards of Medical Care in Diabetes 2016, [place] [employer]. Diabetes Care. 2016.39(Suppl 1). Performed By: #### 2 4321-2 ####[facility] LABORATORYCLIA [id number] [place] [address] [place] Potassium [Moles/Vol] 3.7 mmol/L Normal 3.7-5.1 [facility] Comment on above: Order Comment: Walt khan Type: BLOOD SPECIMENOrdering Facility: [facility] Address: [address] [place] [address] Performed By: #### 2 4321-2 ####[facility] LABORATORYCLIA [id number] [place] [address] [place] Sodium [Moles/Vol] 140 mmol/L Normal 136-144 [facility] Comment on above: Order Comment: Walt men Type: BLOOD SPECIMENOrdering Facility: [facility] Address: [address] [id number] Performed By: #### 2 4321-2 ####[facility] LABORATORYCLIA [id number] [address] STATES [facility] Urea nitrogen [Mass/Vol] 15 mg/dL Normal 9-24 [facility] Comment on above: Order Comment: Speci men Type: BLOOD SPECIMENOrdering Facility: [facility] Address: [address] [place] [address] Performed By: #### 2 4321-2 ####[facility] LABORATORYCLIA [id number] [address] CBC panel Auto (Bld)on 11-18 Erythrocyte distribution width (RBC) [Ratio] 13.5 % Normal 11.5-15.0 [facility] Comment on above: Order Comment: Speci men Type: BLOOD SPECIMENOrdering Facility: [facility] Address: [address] [place] [address] Performed By: #### 5 8410-2 ####[facility] LABORATORYCLIA [id number] [address] Hematocrit (Bld) [Volume fraction] 36.8 % Low 39.0-51.0 [facility] Comment on above: Order Comment: Speci men Type: BLOOD SPECIMENOrdering Facility: [facility] Address: [address] [place] [address] Performed By: #### 5 8410-2 ####[facility] LABORATORYCLIA [id number] [address] STATES OF [facility] Hemoglobin (Bld) [Mass/Vol] 12.3 g/dL Low 13.0-17.0 [facility] Comment on above: Order Comment: Speci men Type: BLOOD SPECIMENOrdering Facility: [facility] Address: [address] [place] [address] Performed By: #### 5 8410-2 ####[facility] LABORATORYCLIA [id number] [address] [place] MCH (RBC) [Entitic mass] 31.5 pg Normal 26.0-34.0 [facility] Comment on above: Order Comment: Speci men Type: BLOOD SPECIMENOrdering Facility: [facility] Address: [address] [place] [address] Performed By: #### 5 8410-2 ####[facility] LABORATORYCLIA [id number] [address] STATES [facility] MCHC (RBC) [Mass/Vol] 33.4 g/dL Normal 30.5-36.0 [facility] Comment on above: Order Comment: Speci men Type: BLOOD SPECIMENOrdering Facility: [facility] Address: [address] [place] [address] Performed By: #### 5 8410-2 ####[facility] LABORATORYCLIA [id number] [address] [place] MCV (RBC) [Entitic vol] 94.4 fL Normal 80.0-100.0 [facility] Comment on above: Order Comment: Speci men Type: BLOOD SPECIMENOrdering Facility: [facility] Address: [address] [place] [address] Performed By: #### 5 8410-2 ####[facility] LABORATORYCLIA [id number] [address] [place] Nucleated RBC (Bld) [#/Vol] 10*3/uL Normal <0.01 [facility] Comment on above: Order Comment: Speci men Type: BLOOD SPECIMENOrdering Facility: [facility] Address: [address] [place] [address] Performed By: #### 5 8410-2 ####[facility] LABORATORYCLIA [id number] [address] [place] Platelet mean volume (Bld) [Entitic vol] 9.2 fL Normal 9.0-12.7 [facility] Comment on above: Order Comment: Speci men Type: BLOOD SPECIMENOrdering Facility: [facility] Address: [address] [place] [address] Performed By: #### 5 8410-2 ####[facility] LABORATORYCLIA [id number] [address] OF [facility] Platelets (Bld) [#/Vol] 200 10*3/uL Normal 150-400 [facility] Comment on above: Order Comment: Walt khan Type: BLOOD SPECIMENOrdering Facility: [facility] Address: [address] [place] [address] Performed By: #### 5 8410-2 ####[facility] LABORATORYCLIA [id number] [address] OF [facility] RBC (Bld) [#/Vol] 3.90 10*6/uL Low 4.20-6.00 [facility] Comment on above: Order Comment: Walt khan Type: BLOOD SPECIMENOrdering Facility: [facility] Address: [address] [place] [address] Performed By: #### 5 8410-2 ####[facility] LABORATORYCLIA [id number] [address] WBC (Bld) [#/Vol] 11.02 10*3/uL High 3.70-11.00 [facility] Comment on above: Order Comment: Walt khan Type: BLOOD SPECIMENOrdering Facility: [facility] Address: [address] [place] [address] Performed By: #### 5 8410-2 ####[facility] LABORATORYCLIA [id number] [address] CNDSon 11-18-2024 CNDS HNO ID: [id number] Author: TREY GUZMAN MD Service: Electrophysiology Author Type: Nurse Practitioner Type: Discharge Summary Filed: 11/18/2024 12:59 Note Text: -- Attestation signed by Trey Guzman MD at 11/18/2024 12:59 PM [facility] Electrophysiology (EP) EP Attending Reviewed case. Agree with evaluation and plan of care as outlined by the CLERK GENERAL, as we discussed. He has recovered sooner than expected post procedures so he is ok for hospital discharge today 11/18/2024 Trey Guzman MD November 18, 2024 12:59 PM -- DISCHARGE SUMMARY PATIENT NAME: Ryley Mckeon Code Status: Not on file Highest Readmission Risk Score: 8 The 30 day readmissions risk score is derived from an internally validated risk model which evaluates patient level characteristics, utilization history, medication orders and lab results up until the day of discharge. Patients with a score of 39 or above are considered highest risk for readmission. Specific patient level drivers will be listed at the bottom of the summary. Admission Information Admission Information ADMIT DATE: 11/17/2024 DISCHARGE DATE: 11/18/2024 MY DOCTORS AND MEDICAL TEAM: My Main Hospital Doctor: Trey Guzman MD Primary Care Provider: Johnnie Ross MD My Medical Team Members: Treatment Team: Attending Provider: Trey Guzman MD MY CONDITION AT DISCHARGE: Good REASON I WAS IN THE HOSPITAL: Pulsed field ablation of persistent atrial fibrillation, implantation of left atrial appendage occlusion device (Watchman) and radiofrequency catheter ablation of typical atrial flutter, procedures performed by Dr. Guzman 11/17/2024. SUMMARY OF WHAT HAPPENED WHILE I WAS IN THE HOSPITAL: The patient underwent pulsed field ablation of persistent atrial fibrillation, implantation of left atrial appendage occlusion device (Watchman) and radiofrequency catheter ablation of typical atrial flutter, procedures performed by Dr. Guzman 11/17/2024. There were no intraprocedural complications. The patient recovered in the rapid observation unit where he was monitored overnight and discharged home. OTHER PROBLEMS/DIAGNOSIS: Principal Problem: Persistent atrial fibrillation (HCC) - The patient underwent pulsed field ablation of persistent atrial fibrillation, implantation of left atrial appendage occlusion device (Watchman) and radiofrequency catheter ablation of typical atrial flutter, procedures performed by Dr. Guzman 11/17/2024. There were no intraprocedural complications. The patient did well overnight, metoprolol was discontinued postprocedure due to bradycardia/junctional rhythm, telemetry appears to be sinus bradycardia with occasional PACs and intermittent junctional rhythm, rates in the 50s-60s. He will continue Xarelto 20 mg daily, aspirin EC 81 mg daily was added to his regimen. [id number] sutures removed from bilateral groins to their entirety, without issue. He will have a 45-day post watchman YURIDIA tentatively scheduled 01/01/2025, he will follow-up within 1 week to review the results. If YURIDIA shows adequate seal and no device related thrombus, plan to discontinue Xarelto, and add Plavix 75 mg daily to his regimen, he will then continue aspirin and Plavix until 6-month follow-up, with plan to discontinue Plavix at that time, and he will continue aspirin therapy lifelong. For the ablation procedure, he will have a 7-day patch monitor applied in 3 months. We reviewed postprocedure instructions, medications and follow-up, patient verbalizes understanding. Information handout given regarding post-PVI instructions. He is okay to be discharged, as discussed with Dr. Guzman. CHADS2-Vasc Score Breakdown 4 Total Score 2 Age >= 75 years old 1 History of hypertension 1 History of vascular disease Modified Allen score: 1 = no significant disability with symptoms; able to carry out all usual duties and activities. Active Problems: S/P mitral valve repair detention (current) use of anticoagulants At risk for stroke Sinus node dysfunction (HCC) LISSETTE (obstructive sleep apnea) At risk for bleeding associated with anticoagulants Presence of Watchman left atrial appendage closure device Status post catheter ablation of atrial fibrillation Status post catheter ablation of atrial flutter Resolved Problems: * No resolved hospital problems. * OPERATIONS PERFORMED WHILE IN THE HOSPITAL: Pulsed field ablation of persistent atrial fibrillation, implantation of left atrial appendage occlusion device (Watchman) and radiofrequency catheter ablation of typical atrial flutter, procedures performed by Dr. Guzman 11/17/2024. Discharge Disposition Discharge Disposition: Home With Self Care Acti (more content not included)... Normal [facility] Casey 11-18-2024 BERNARDO Telephone ([facility]) -- RYLEY MCKEON ([id number]) 1945 M Date Time Provider Department 11/18/24 ALINE VAZQUEZ During your visit today, we recorded the following information about you: Aline Vazquez APRN.CNP 11/18/2024 10:47 AM Signed Please arrange 45 day post watchman YURIDIA 01/01/2025. Patient had Watchman implanted with PFA atrial fibrillation and RF atrial flutter ablation, procedures performed by Dr. Guzman 11/17/2024. Please arrange follow up within a week of YURIDIA to review results and 6 month follow up with Dr. Guzman or GENEVIEVE. He will be discharged today. Thank you. Aline Vazquez APRN.EMILIA AckermanjocelynJazmin 11/18/2024 1:57 PM Addendum You are scheduled for a 45 day Post Watchman YURIDIA on 01/01 You will receive a call from [facility] the day before your YURIDIA between 2-5pm with your arrival time for the following morning. You should have nothing to eat or drink after midnight the night before the YURIDIA. Please continue to take your medications as prescribed unless otherwise instructed by your physician(s). This is an outpatient procedure and you will need someone to drive you home once released. You are scheduled for a post YURIDIA follow up on 01/06 at 2:30p You are scheduled for a 3 month post Ablation monitor on 02/17 at 10:30a You are also scheduled for a 6 month follow up on 05/21/25 at 11am If you have any questions, please call the office at [phone] Thank you Aline Vazquez APRN.CNP 11/18/2024 1:48 PM Signed Order signed. Aline Vazquez APRN.HOME HEALTH CLINICIAN Allergies As of Date: 11/18/2024 Noted Allergy Reaction HYDROCODONE 02/11/2018 11 - Vomiting OXYCODONE 02/11/2018 11 - Vomiting PERCOCET (OXYCODONE-ACETAMINOPHEN)0 05/01/2017 8 - GI Upset Date Reviewed: 11/18/2024 Reviewed by: Monalisa Vazquez RN - Fully Assessed Reason for Visit: Orders [681] Appointment [186] Primary Visit Diagnosis:Presence of Watchman left atrial appendage closure device [Z95.818] Other Visit Diagnoses:Atrial fib/flutter, transient (HCC) [I48.91, I48.92] Paroxysmal atrial fibrillation (HCC) [I48.0] Order(s):ECHO TRANSESOPHAGEAL [[id number]] Order #: [id number]: 1 FUTURE sodium chloride 0.9 %, flush, (BD POSIFLUSH) syringeInject 2-10 mL intravenously as directed. For Echo procedureDisp: 10 mLRfl: 0 OUTSIDE VENDOR CARDIAC OUTPATIENT EXTENDED RHYTHM RECORDING (WITHOUT TELEMETRY) [[id number]] Order #: [id number]: 1 FUTURE OUTSIDE VENDOR CARDIAC OUTPATIENT EXTENDED RHYTHM RECORDING (WITHOUT TELEMETRY) [[id number]] Order #: [id number]: 1 Prescriptions as of 11/18/2024 - aspirin, enteric coated (ASPIRIN, ENTERIC COATED) 81 mg EC tablet Take 1 tablet by mouth once daily. - atorvastatin (LIPITOR) 40 mg tablet Take 1 tablet by mouth daily at bedtime. - sodium chloride 0.9 %, flush, (BD POSIFLUSH) syringe Inject 2-10 mL intravenously as directed. For Echo procedure - MEDICATION, NON-DATABASE Take 1 capsule by mouth once daily. Zinc complex with quercetin and vitamin C - amoxicillin (AMOXIL) 500 mg capsule Take by mouth four times daily. Prior to dental appointment - losartan (COZAAR) 50 mg tablet Take 1 tablet by mouth once daily. (Dr. Nelson) - buPROPion XL (WELLBUTRIN XL) 300 mg 24 hr tablet Take 1 tablet by mouth once daily. - XARELTO 20 mg tablet Take 20 mg by mouth daily at bedtime. - coenzyme Q10 (COENZYME Q-10) 100 mg cap capsule Take 100 mg by mouth once daily. - triamcinolone acetonide (NASACORT NASAL) Use in the nose once daily. - BIOTIN ORAL Take 5,000 mcg by mouth once daily. - MULTIVITAMIN TAB Take one(1) tablet by mouth daily. Facility-Administered Medications as of 11/18/2024 - rivaroxaban 20 mg tab(s) (XARELTO) - buPROPion XL 300 mg tab(s) (WELLBUTRIN XL) - losartan 50 mg tab(s) (COZAAR) - atorvastatin 40 mg tab(s) (LIPITOR) - aspirin, enteric coated 81 mg tab(s) - ondansetron orally disintegrating 4 mg tab(s) (ZOFRAN ODT) - ondansetron (PF) 4 mg injection (ZOFRAN) - metoclopramide HCl 5 mg (REGLAN) - metoclopramide HCl 5 mg injection (REGLAN) - acetaminophen 650 mg tab(s) (TYLENOL) Problem List As Of Date 11/18/2024 Noted Resolved S/P mitral valve repair [Z98.890] 08/31/2008 Palpitations [R00.2] 05/28/2017 06/13/2021 MVP (mitral valve prolapse) [I34.1] 05/28/2017 detention (current) use of anticoagulants [Z79.* At risk for stroke [Z91.89] Persistent atrial fibrillation (HCC) [I48.19] Bradycardia [R00.1] Sinus bradycardia [R00.1] 06/13/2021 Premature ventricular contractions (PVCs) (VPCs* Atrial flutter (HCC) [I48.92] Sinus node dysfunction (HCC) [I49.5] Malignant neoplasm of prostate (HCC) [C61] 03/16/2021 Anxiety and depression [F41.9, F32.A] 06/13/2021 LISSETTE (obstructive sleep apnea) [G47.33] 06/13/2021 CAD (coronary artery disease) [I25.10] 06/13/2021 Essential (primary) hypertension [I10] 06/13/2021 Dysli (more content not included)... Normal [facility] ANES PRE-OPon 11-17-2024 ANES PRE-OP HNO ID: [id number] Author: KAYLEEN TRUONG MD Service: Anesthesiology Author Type: Physician Type: Anesthesia Preprocedure Evaluation Filed: 11/17/2024 08:38 Note Text: ANESTHESIOLOGY DAY OF SURGERY NOTE : 1945 Procedure Information Date/Time: 11/17/24 0745 Procedures: COMPRE EP EVAL ABLTJ ATR FIB PULM VEIN ISOLATION (Cardiac) - PVI-PFA/WATCHMAN HANDP ON 11/11 PACU/ROU SDM on 07/13 by Casey DEL CASTILLO TRANSCATH CLOSURE LEFT ATRIAL APPENDAGE W/IMPLANT,INCLUSIVE OF FLUORO,TRANSEPTAL PUNCTURE,CATH PLACEMENT(S) ANGIO,WHEN PERFORMED,LANDY MAXWELL (Cardiac) - 10-16 CD in blue folder. lcl ECHOCARDIOGRAM TRANSESOPHOGEAL, REAL TIME W/IMAGE DOCUMENT (2D) Location: [facility] 02 / [facility] Surgeons: Trey Guzman MD Estimated body mass index is 23.49 kg/m? as calculated from the following: Height as of this encounter: 170.2 cm (5' 7). Weight as of this encounter: 68 kg (150 lb). Most recent hematocrit and potassium results: Hematocrit 45.1 11/17/2024 Potassium 4.6 11/17/2024 Relevant Problems ANESTHESIA (+) At risk for bleeding associated with anticoagulants (+) LISSETTE (obstructive sleep apnea) CARDIO (+) Atrial flutter (HCC) (+) CAD (coronary artery disease) (+) Essential (primary) hypertension (+) MVP (mitral valve prolapse) (+) Mitral valve prolapse (+) Myxomatous mitral valve regurgitation (+) Persistent atrial fibrillation (HCC) (+) Premature ventricular contractions (PVCs) (VPCs) (+) Sinus node dysfunction (HCC) GI (+) Gastroesophageal reflux disease without esophagitis PULMONARY (+) LISSETTE (obstructive sleep apnea) I - PHYSICAL EVALUATION AIRWAY Patient intubated: No. Tracheostomy tube not present Mallampati: II. TM distance: >3 FB. Neck ROM: full ROM without neurological symptoms. Mouth opening: adequate. Short neck: no. Thick neck: no DENTAL Dental findings: chipped. Additional exam findings: no II - ANESTHESIA PLAN ASA Score: 3 Anesthetic Plan: general Airway type: ETT NPO Status: adequate Beta Michell Monitoring Plan Monitoring plan: standard ASA. Post Procedure Analgesic Plan Postoperative analgesic plan: parenteral or oral opioids and multimodal analgesia. Informed Consent Anesthetic risks, benefits, alternatives, personnel and consent discussed: yes. Patient / Responsible Green Party agrees to proceed: yes Patient / Surrogate agrees to blood products: Yes Significant changes in the patient condition since the History and Physical, not otherwise documented in primary service progress note: no. Vitals Value Taken Time BP 149/91 11/17/24 07:21 Pulse Resp 18 11/17/24 07:21 Temp 36.6 ?C (97.9 ?F) 11/17/24 07:21 SpO2 100 % 11/17/24 07:21 Facility-Administered Medications as of 11/17/2024 Medication Dose Route Frequency [START ON 11/18/2024] vancomycin iv piggyback 1 g in D5W 200 mL (VANCOCIN) 0.015 g/kg/dose (Order-Specific) INTRAVENOUS [place] to [place] Outpatient Medications as of 11/17/2024 Medication Sig metoprolol tartrate, short acting, (LOPRESSOR) 25 mg tablet Take 25 mg by mouth two times a day. Morning and night buPROPion XL (WELLBUTRIN XL) 300 mg 24 hr tablet Take 1 tablet by mouth once daily. XARELTO 20 mg tablet Take 20 mg by mouth daily at bedtime. coenzyme Q10 (COENZYME Q-10) 100 mg cap capsule Take 100 mg by mouth once daily. triamcinolone acetonide (NASACORT NASAL) Use in the nose once daily. BIOTIN ORAL Take 5,000 mcg by mouth once daily. MULTIVITAMIN TAB Take one(1) tablet by mouth daily. MEDICATION, NON-DATABASE Take 1 capsule by mouth once daily. Zinc complex with quercetin and vitamin C iv contrast (will be provided with radiology test) CT Urogram WO/W Inject, intravenously, once for 1 dose.No IV access, insert saline lock prior to the beginning of sedation, infusion, injection of imaging exam. Discontinue saline lock post exam. If Pt. has a central line or IVAD, may access for administration according to line specific nursing protocol. Once exam is complete flush line and de-access according to line specific nursing protocol in the CT contrast administration guidelines link. (Patient not taking: Reported on 11/10/2024) I have interviewed and examined the patient. I have reviewed the medical record and/or the pre-anesthesia evaluation, pertinent labs, and test results. This contains updated information obtained within 48 hours of Surgery/Procedure. SIGNATURE: Kayleen Truong MD PATIENT NAME: Ryley Mckeon DATE: November 17, 2024 TIME: 8:19 AM CSN: [id number] Normal [facility] Basic metabolic 2000 panelon 11-17-2024 Anion gap [Moles/Vol] 9 mmol/L Normal 8-15 [facility] Comment on above: Order Comment: Speci men Type: BLOOD SPECIMENOrdering Facility: [facility] Address: [address] [place] [address] Performed By: #### 2 4321-2 ####[facility] LABORATORYCLIA [id number] [place] [address] [place] Calcium [Mass/Vol] 8.7 mg/dL Normal 8.5-10.2 [facility] Comment on above: Order Comment: Speci men Type: BLOOD SPECIMENOrdering Facility: [facility] Address: [address] [place] [address] Performed By: #### 2 4321-2 ####[facility] LABORATORYCLIA [id number] [place] [address] [place] Chloride [Moles/Vol] 108 mmol/L High 98-107 [facility] Comment on above: Order Comment: Speci men Type: BLOOD SPECIMENOrdering Facility: [facility] Address: [address] [place] [address] Performed By: #### 2 4321-2 ####[facility] LABORATORYCLIA [id number] [place] [address] [place] CO2 [Moles/Vol] 24 mmol/L Normal 22-30 [facility] Comment on above: Order Comment: Speci men Type: BLOOD SPECIMENOrdering Facility: [facility] Address: [address] [place] [address] Performed By: #### 2 4321-2 ####[facility] LABORATORYCLIA [id number] [place] [address] [place] Creatinine [Mass/Vol] 0.73 mg/dL Normal 0.73-1.22 [facility] Comment on above: Order Comment: Speci men Type: BLOOD SPECIMENOrdering Facility: [facility] Address: [address] [place] [address] Performed By: #### 2 4321-2 ####[facility] HOSPITALCLIA [id number] [place] [id number] [place] eGFRcr SerPlBld CKD-EPI 2020 94 mL/min/1.73m??? Normal >=60 [facility] Comment on above: Order Comment: Walt khan Type: BLOOD SPECIMENOrdering Facility: [facility] Address: [address] [place] [address] Result Comment: Denisse mated Glomerular Filtration Rate (eGFR) is calculated using the 2020 CKD-EPI creatinine equation. This equation utilizes serum creatinine, sex, and age as parameters. The creatinine assay has traceable calibration to isotope dilution-mass spectrometry. Refer to KDIGO guidelines for clinical interpretation. In patients with unstable renal function, e.g. those with acute kidney injury, the eGFR may not accurately reflect actual GFR. Performed By: #### 2 4321-2 ####[facility]ITALIA [id number] [address] [place] [facility] Glucose [Mass/Vol] 129 mg/dL High 74-99 [facility] Comment on above: Order Comment: Walt khan Type: BLOOD SPECIMENOrdering Facility: [facility] Address: [address] [place] [address] Result Comment: The [place] Diabetes Association (ADA) provides guidance for cutoff values for fasting glucose and random glucose. The ADA defines fasting as no caloric intake for at least 8 hours. Fasting plasma glucose results between 100 to 125 mg/dL indicate increased risk for diabetes (prediabetes). Fasting plasma glucose results greater than or equal to 126 mg/dL meet the criteria for diagnosis of diabetes. In the absence of unequivocal hyperglycemia, results should be confirmed by repeat testing. In a patient with classic symptoms of hyperglycemia or hyperglycemic crisis, random plasma glucose results greater than or equal to 200 mg/dL meet the criteria for diagnosis of diabetes. Reference: Standards of Medical Care in Diabetes 2016, [place] [employer] Association. Diabetes Care. 2016.39(Suppl 1). Performed By: #### 2 4321-2 ####[facility]ITALIA [id number] [place] [address] [place] Potassium [Moles/Vol] 4.6 mmol/L Normal 3.7-5.1 [facility] Comment on above: Order Comment: Speci men Type: BLOOD SPECIMENOrdering Facility: [facility] Address: [address] [place] [address] Performed By: #### 2 4321-2 ####[facility] LABORATORYCLIA [id number] [address] [place] Sodium [Moles/Vol] 141 mmol/L Normal 136-144 [facility] Comment on above: Order Comment: Speci men Type: BLOOD SPECIMENOrdering Facility: [facility] Address: [address] [place] [address] Performed By: #### 2 4321-2 ####[facility] LABORATORYCLIA [id number] [address] [place] Urea nitrogen [Mass/Vol] 20 mg/dL Normal 9-24 [facility] Comment on above: Order Comment: Speci men Type: BLOOD SPECIMENOrdering Facility: [facility] Address: [address] [place] [address] Performed By: #### 2 4321-2 ####[facility] LABORATORYCLIA [id number] [address] [place] CBC panel Auto (Bld)on 11-17 Erythrocyte distribution width (RBC) [Ratio] 12.9 % Normal 11.5-15.0 [facility] Comment on above: Order Comment: Speci men Type: BLOOD SPECIMENOrdering Facility: [facility] Address: [address] [place] [address] Performed By: #### 5 8410-2 ####[facility] LABORATORYCLIA [id number] [address] Hematocrit (Bld) [Volume fraction] 45.1 % Normal 39.0-51.0 [facility] Comment on above: Order Comment: Speci men Type: BLOOD SPECIMENOrdering Facility: [facility] Address: [address] [place] [address] Performed By: #### 5 8410-2 ####[facility] LABORATORYCLIA [id number] [address] STATES [facility] Hemoglobin (Bld) [Mass/Vol] 14.2 g/dL Normal 13.0-17.0 [facility] Comment on above: Order Comment: Speci men Type: BLOOD SPECIMENOrdering Facility: [facility] Address: [address] [place] [address] Performed By: #### 5 8410-2 ####[facility] LABORATORYCLIA [id number] [address] MCH (RBC) [Entitic mass] 29.7 pg Normal 26.0-34.0 [facility] Comment on above: Order Comment: Speci men Type: BLOOD SPECIMENOrdering Facility: [facility] Address: [address] [place] [address] Performed By: #### 5 8410-2 ####[facility] LABORATORYCLIA [id number] [address] MCHC (RBC) [Mass/Vol] 31.5 g/dL Normal 30.5-36.0 [facility] Comment on above: Order Comment: Speci men Type: BLOOD SPECIMENOrdering Facility: [facility] Address: [address] [place] [address] Performed By: #### 5 8410-2 ####[facility] LABORATORYCLIA [id number] [address] MCV (RBC) [Entitic vol] 94.4 fL Normal 80.0-100.0 [facility] Comment on above: Order Comment: Speci men Type: BLOOD SPECIMENOrdering Facility: [facility] Address: [address] [place] [address] Performed By: #### 5 8410-2 ####[facility] LABORATORYCLIA [id number] [address] Nucleated RBC (Bld) [#/Vol] 10*3/uL Normal <0.01 [facility] Comment on above: Order Comment: Speci men Type: BLOOD SPECIMENOrdering Facility: [facility] Address: [address] [place] [address] Performed By: #### 5 8410-2 ####[facility] LABORATORYCLIA [id number] [address] [place] Platelet mean volume (Bld) [Entitic vol] 9.0 fL Normal 9.0-12.7 [facility] Comment on above: Order Comment: Speci men Type: BLOOD SPECIMENOrdering Facility: [facility] Address: [address] [place] [address] Performed By: #### 5 8410-2 ####[facility] LABORATORYCLIA [id number] [address] [place] Platelets (Bld) [#/Vol] 251 10*3/uL Normal 150-400 [facility] Comment on above: Order Comment: Speci men Type: BLOOD SPECIMENOrdering Facility: [facility] Address: [address] [place] [address] Performed By: #### 5 8410-2 ####[facility] LABORATORYCLIA [id number] [place] [address] [place] RBC (Bld) [#/Vol] 4.78 10*6/uL Normal 4.20-6.00 [facility] Comment on above: Order Comment: Speci men Type: BLOOD SPECIMENOrdering Facility: [facility] Address: [address] [place] [address] Performed By: #### 5 8410-2 ####[facility] LABORATORYCLIA [id number] [address] [place] WBC (Bld) [#/Vol] 6.18 10*3/uL Normal 3.70-11.00 [facility] Comment on above: Order Comment: Speci men Type: BLOOD SPECIMENOrdering Facility: [facility] Address: [address] [place] [address] Performed By: #### 5 8410-2 ####[facility] LABORATORYCLIA [id number] [place] [id number] [place] ECHO TRANSESOPHAGEALon 11-17 ECHO TRANSESOPHAGEAL Echocardiography Report: Transesophageal Echo [facility] Date of service: 11/17/2024 12:47:48 PM [employer] Ordering physician: TREY GUZMAN Exam indication: Watchman Technologist: Omer Laboy [facility] Interpreting physician: Pauline Benitez MD PATIENT: Name: MR. RYLEY MCKEON : 1945 Age: 79 years Gender: M Previous cardiovascular interventions: Mitral valve repair Watchman Primary rhythm: sinus. Height: 170.20 cm BSA: 1.79 m Weight: 68.04 kg BMI: 23.5 kg/m Pre Heart rate 48 bpm Blood pressure 88/60 mmHg Color Doppler was utilized to interrogate the cardiac valves assessed and spectral Doppler was utilized to determine the flow velocities and pressure gradients reported in this exam. Exam performed under general anesthesia5 min. (Stop Time: 1:03PM) No specimens collected. No blood loss. The interpreting physician was present for and actively participated in the YURIDIA procedure. MEASUREMENTS: Value Normal Ejection Fraction 60 % (visual est.) EF > 52 FINDINGS: LEFT VENTRICLE Left ventricular systolic function is normal. RIGHT VENTRICLE LEFT ATRIUM A WATCHMAN left atrial appendage closure device has been implanted. There is no bruno-device leak. MITRAL VALVE Post mitral valve repair. There is trace mitral valve regurgitation. TRICUSPID VALVE AORTIC VALVE PULMONIC VALVE INTERATRIAL SEPTUM There is no evidence of intracardiac shunting as detected by Doppler. CONCLUSIONS: - Exam indication: Watchman - Left ventricular systolic function is normal. EF = 60 5% (visual est.) - Post mitral valve repair. There is trace mitral valve regurgitation. MV Repair; trace MR. - Placement of #24 Watchman. Watchman measurements after in place 0 degrees diam 1.9 cm 45 deg 1.75 90 deg 1.8 135 deg 2.0 No color flow at mult angles to suggest leak around device No pericardial effusion Residual iatrogenic ASD 3.5 mm diam L to R color flow by doppler after removal of catheter and ICE probe - The patient has not had a prior CC echocardiographic exam for comparison. * * * Final * * * CC [facility] [facility] : [id number] Normal [facility] TYPE + SCREENon 11-17-2024 ABO O Normal [facility] Comment on above: Order Comment: Speci men Type: BLOOD SPECIMENOrdering Facility: [facility] Address: [address] [place] [address] Performed By: #### T SCR ####[facility] BLOOD BANKCLIA [id number] [address] [place] Rh Nom (Bld) Negative Normal [facility] Comment on above: Order Comment: Speci men Type: BLOOD SPECIMENOrdering Facility: [facility] Address: [address] [place] [address] Performed By: #### T SCR ####[facility] BLOOD BANKCLIA [id number] [address] [place] TYPE AND SCREEN EXPIRATION 11/20/2024 23:59 Normal [facility] Comment on above: Order Comment: Speci men Type: BLOOD SPECIMENOrdering Facility: [facility] Address: [address] [place] [address] Performed By: #### T SCR ####[facility] BLOOD BANKCLIA [id number] [address] [place] ECG COMPLETEon 11-11-2024 ECG COMPLETE Ventricular Rate : 4 1 BPM QRS Duration : 94 ms Q-T Interval : 474 ms QTC Calculation(Bazett) : 391 ms Calculated R [place] : 88 degrees Calculated T [place] : 86 degrees Sinus bradycardia with 1st degree AVB ANTERIOR INFARCT possible ABNORMAL ECG NO PREVIOUS ECGS AVAILABLE Confirmed by MD AZAR, PAULINE ([id number]) on 11/11/2024 2:52:20 PM NAME : RYLEY MCKEON PID : [id number] : 1945 Gender : Male Race : ORD : [id number] Procedure Date : Nov 11 2024 09:54:03 Edit Date : Nov 11 2024 14:52:22 Diagnosis: Sinus bradycardia with 1st degree AVB ANTERIOR INFARCT possible ABNORMAL ECG NO PREVIOUS ECGS AVAILABLE Confirmed by MD BENITEZ DAVID ([id number]) on 11/11/2024 2:52:20 PM Test Reason : [facility] : MD BENITEZ DAVID Edited By : MD BENITEZ DAVID Referred By : , Acquired by : DARREN SALCEDO [facility] HISTORY PHYSICALon HISTORY PHYSICAL HNO ID: [id number] Author: DARREN SALCEDO APRN.HOME HEALTH CLINICIAN Service: ? Author Type: Nurse Practitioner Type: H&P Filed: 11/11/2024 10:39 Note Text: [facility] HISTORY AND PHYSICAL EXAMINATION SERVICE DATE: 11/11/2024 SERVICE TIME: 10:34 AM PRIMARY CARE PHYSICIAN: Johnnie Ross MD Assessment Patient has the following medical conditions which may affect bruno-operative course: Preop examination Patient has the following medical conditions which may affect bruno-operative course addressed in assessment and plan today. 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 Clinical Frailty Scale: 2. Well ARISCAT Score: Age: 51-80 Preoperative SpO2: >=96% Respiratory infection in the last month: No Preoperative anemia: No Surgical incision: peripheral Duration of surgery: >3 hrs Emergency procedure: No ARISCAT Score: 26 I - PHYSICAL EVALUATION AIRWAY Patient intubated: No. DENTAL Dental findings: teeth intact. Additional comments: Upper capped tooth. II - ANESTHESIA PLAN Anesthetic Plan: general Beta Michell Monitoring Plan Post Procedure Analgesic Plan Prepared for Surgery: CONSULTS: Planned Anesthetic: general The Following Tests/Procedures Have Been Initiated: Orders Placed This Encounter ECG COMPLETE Order Comments: Preop exam Standing Status: Future Number of Occurrences: 1 Expiration Date: 11/11/2025 The reason for this visit is to perform a comprehensive review of the patient's past medical history, assess their current health status and obtain any additional testing required based on anesthesia guidelines. We will also identify any potential anesthesia problems or contraindications to the planned procedure. REASON FOR VISIT: Ryley Mckeon is a 79 year old male who is scheduled for Procedure(s) with comments: COMPRE EP EVAL ABLTJ ATR FIB PULM VEIN ISOLATION (N/A) - first case PERC TRANSCATH CLOSURE LEFT ATRIAL APPENDAGE W/IMPLANT,INCLUSIVE OF FLUORO,TRANSEPTAL PUNCTURE,CATH PLACEMENT(S) ANGIO,WHEN PERFORMED,LANDY MAXWELL (N/A) - 10-16 CD in blue folder. lcl ECHOCARDIOGRAM TRANSESOPHOGEAL, REAL TIME W/IMAGE DOCUMENT (2D) (N/A) at the request of @REFPROV2@ for routine HANDP. My final recommendation will be communicated back to the requesting physician by way of shared medical record or letter. Subjective The patient has the following: COVID-19 Immunization Status This patient has no relevant Health Maintenance data. CHIEF COMPLAINT: The reason for this visit is to perform a comprehensive review of the patient's past medical history, assess their current health status and obtain any additional testing required based on anesthesia guidelines. We will also identify any potential anesthesia problems or contraindications to the planned procedure. HPI: Patient is a 79 year old male who presents for pre surgical testing. Patient had a mitral valve repair in 2000. In 2018 he was diagnosed with A-fib and was cardioverted twice. He was on Eliquis in the past and currently is on Xarelto. He discussed with the group work program aide about having a Watchman device. After discussion with the surgeons the patient agrees to surgical intervention. REVIEW OF SYSTEMS: General: Negative for: unintentional weight change, malaise and fever. Neurological: Negative for: headaches, seizures and strokes. Respiratory: Positive for: obstructive sleep apnea. Negative for: asthma, COPD, pneumonia within 6 weeks and URI < 2 weeks. Cardiovascular: Positive for: anticoagulation therapy, atrial fibrillation, CAD (Omar), hyperlipidemia and hypertension Patient's last office visit with group work program aideOmar, Negative for: chest pain, CHF and DVT/PE. GI: Positive for: GERD Negative for: abdominal pain, nausea and vomiting. : Negative for: dysuria, hematuria and renal failure. Endocrine: Negative for: diabetes mellitus, hyperthyroidism and hypothyroidism. Hematology: Negat (more content not included)... Normal [facility] CNOVon 11-10-2024 CNOV Office Visit (UROLMN ) -- RYLEY MCKEON ([id number]) 1945 M Date Time Provider Department 11/10/24 4:45 PM ARACELI LAURA During your visit today, we recorded the following information about you: Araceli Laura MD 12/04/2024 7:40 PM Signed Chief Complaint: Prostate cancer on Active surveillance History of Present Illness: Ryley Medrano Randymaria garmando is a very pleasant 79 year old male who presents with a history of GG2 prostate cancer diagnosed 03/2020 with PSA rise to 7.27, initially on Active surveillance previously followed by Dr. Lin however developed rise in PSA and underwent I-125 seed implantation on 06/15/2021. Patient on Xarelto for Afib. He did have gross hematuria 05/28/2024, cysto was normal, CTU with no upper tract disease. He is following with radiation oncology, last visit was today, PSA 0.18 08/22/2024, plan to follow up in 6 months with PSA Patient reports feeling well no issues Denies Any LUTS . He denies dysuria, incontinence, urgency, or current hematuria. He had an episode of hematuria 4-5 months ago, attributed to Xarelto, which resolved spontaneously. Patient has a history of AF and has undergone three cardioversions, with the most recent resulting in bradycardia (HR 41 bpm). He is currently on metoprolol and Xarelto. He is scheduled for a Watchman device implantation and pulse field ablation on November 17, 2022, by Dr. Guzman at the [facility]. He has tried Cialis but with minimal effect 05/2019 prostate bx, Annette 3+3, was on PSA kaylyn to 7.27 on 09/2020: MRI 0.6 cm P4 lesion, L mid PZ, no EPE, no LA or bone mets, 46 cc 01/26: repeat biopsy Gl 3+4, T1c, 4/4 cores positive, GG2, 95% PSA (ng/mL) Date Value 08/22/2024 0.18 04/29/2024 0.18 08/10/2023 0.37 05/13/2023 0.41 04/25/2021 6.63 Allergies: Hydrocodone, Oxycodone, and Percocet [Oxycodone-Acetaminophen] Physical Exam: Patient is a 79 year old male Constitutional: Vitals: There were no vitals taken for this visit. General Appearance Adult: Alert, no acute distress, oriented Labs and Pathology: As Above Assessment and Plan: Assessment: 79 year old male who presents with a history of GG2 prostate cancer previously followed by Dr. Lin s/p I-125 seed implantation on 06/15/2021. Patient on Xarelto for Afib, with plan for Watchman procedure next week, He did have gross hematuria 05/28/2024, cysto was normal, CTU with no upper tract disease. Last PSA 0.18 stable from 04/29/2024 Plan: - Repeat PSA in 6 months - Follow up with Rad Onc - Failed Cialis, discussed ICI, patient will think about it and get back to us Julia Rodriguez MD Urology PGY5 I agree with the Chief Complaint, ROS, and Past Histories independently gathered by the clinical technical support technician including scribe and or medical student and or KATHRINE and or resident or fellow and the remaining scribed note accurately describes my personal service to the patient. Araceli Laura MD, MS [facility] Department of Urology [facility] Allergies As of Date: 11/10/2024 Noted Allergy Reaction HYDROCODONE 02/11/2018 11 - Vomiting OXYCODONE 02/11/2018 11 - Vomiting PERCOCET (OXYCODONE-ACETAMINOPHEN)0 05/01/2017 8 - GI Upset Date Reviewed: 11/10/2024 Reviewed by: Jreome Bower OCCA - Fully Assessed Reason for Visit: Follow Up [171] Visit Diagnosis:Screening for genitourinary condition [Z13.89] Order(s):UA DIP, URINE (POC) [0428679] Order #: [id number]. #:[id number] Prescriptions as of 12/04/2024 - aspirin, enteric coated (ASPIRIN, ENTERIC COATED) 81 mg EC tablet Take 1 tablet by mouth once daily. - atorvastatin (LIPITOR) 40 mg tablet Take 1 tablet by mouth daily at bedtime. - sodium chloride 0.9 %, flush, (BD POSIFLUSH) syringe Inject 2-10 mL intravenously as directed. For Echo procedure - MEDICATION, NON-DATABASE Take 1 capsule by mouth once daily. Zinc complex with quercetin and vitamin C - amoxicillin (AMOXIL) 500 mg capsule Take by mouth four times daily. Prior to dental appointment - losartan (COZAAR) 50 mg tablet Take 1 tablet by mouth once daily. (Dr. Nelson) - buPROPion XL (WELLBUTRIN XL) 300 mg 24 hr tablet Take 1 tablet by mouth once daily. - XARELTO 20 mg tablet Take 20 mg by mouth daily at bedtime. - coenzyme Q10 (COENZYME Q-10) 100 mg cap capsule Take 100 mg by mouth once daily. - triamcinolone acetonide (NASACORT NASAL) Use in the nose once daily. - BIOTIN ORAL Take 5,000 mcg by mouth once daily. - MULTIVITAMIN TAB Take one(1) tablet by mouth daily. Medication notes this encounter AMOXICILLIN 500 MG CAPSULE >> Jerome Bower OCCA 11/10/2024 4:35 PM >> JEROME BOWER Nov 10, 2024 4:35 PM NEEDED Problem List As Of Date 11/10/2024 Noted Resolved S/P mitral valve repair [Z98.890] 08/31/2008 Palpitations (more content not included)... Normal [facility] Office Visit (RADTMN ) -- RYLEY MCKEON ([id number]) 1945 M Date Time Provider Department 11/10/24 3:00 PM KEON KELLEY During your visit today, we recorded the following information about you: Pulse Respiration Blood pressure Weight 41/minute 18/minute 140/61 68.2 kg Keon Kelley APRN.CNP 11/16/2024 12:11 PM Signed Radiation Oncology - Follow Up Note PATIENT NAME: Ryley Mckeon PATIENT DIAGNOSIS: 79 yo gentleman with hx of adenocarcinoma of the prostate, initial PSA of 7.27 ng/mL, Annette of 3+4=7. Status post I-125 seed implantation on 06/15/2021. INTERVAL HISTORY: The patient presents for routine follow-up 6 months after having last been seen. Patient with a history of atrial fibrillation (AF) and urinary retention was diagnosed with prostate cancer. In 2013, he underwent a TURP at [facility] due to urinary retention, with post-void residuals of 600 cc. In 2017, his PSA levels were noted to be elevated at 7.27 ng/mL, and a nodule was palpated on examination. He was initially advised against brachytherapy due to his history of TURP. However, after consulting with Dr. Tejeda, he was deemed a candidate for brachytherapy. He underwent a biopsy and imaging, followed by brachytherapy on June 15, 2021, performed by Dr. Zayas and Dr. Bell at [facility]. Recent History: Patient reports stable urinary symptoms, with nocturia once per night and daytime frequency of twice per day. He denies dysuria, incontinence, urgency, or current hematuria. He had an episode of hematuria 4-5 months ago, attributed to Xarelto, which resolved spontaneously. A cystoscopy performed by Dr. Lin showed no abnormalities. He is not taking Flomax and reports regular bowel movements without hematochezia. He denies current use of medications for erectile dysfunction, noting that previous use of Cialis did not make him feel well. He expresses interest in addressing erectile dysfunction. Patient has a history of AF and has undergone three cardioversions, with the most recent resulting in bradycardia (HR 41 bpm). He is currently on metoprolol and Xarelto. He is scheduled for a Watchman device implantation and pulse field ablation on November 17, 2022, by Dr. Guzman at the [facility]. PSA HISTORY: PSA (ng/mL) Date Value 08/22/2024 0.18 04/29/2024 0.18 08/10/2023 0.37 05/13/2023 0.41 04/25/2021 6.63 PSA, Percent Free (%) Date Value 04/25/2021 12 ALLERGIES Allergen Reactions Hydrocodone Vomiting Oxycodone Vomiting Percocet [Oxycodone* GI Upset MEDICATION, NON-DATABASE Take 1 capsule by mouth once daily. Zinc complex with quercetin and vitamin C amoxicillin (AMOXIL) 500 mg capsule Take by mouth four times daily. Prior to dental appointment losartan (COZAAR) 50 mg tablet Take 1 tablet by mouth once daily. (Dr. Nelson) atorvastatin (LIPITOR) 40 mg tablet Take 1 tablet by mouth once daily. (Dr. Nelson) (Patient taking differently: Take 40 mg by mouth daily at bedtime. (Dr. Nelson)) iv contrast (will be provided with radiology test) CT Urogram WO/W Inject, intravenously, once for 1 dose.No IV access, insert saline lock prior to the beginning of sedation, infusion, injection of imaging exam. Discontinue saline lock post exam. If Pt. has a central line or IVAD, may access for administration according to line specific nursing protocol. Once exam is complete flush line and de-access according to line specific nursing protocol in the CT contrast administration guidelines link. metoprolol tartrate, short acting, (LOPRESSOR) 25 mg tablet Take 25 mg by mouth two times a day. Morning and night buPROPion XL (WELLBUTRIN XL) 300 mg 24 hr tablet Take 1 tablet by mouth once daily. XARELTO 20 mg tablet Take 20 mg by mouth daily at bedtime. coenzyme Q10 (COENZYME Q-10) 100 mg cap capsule Take 100 mg by mouth once daily. triamcinolone acetonide (NASACORT NASAL) Use in the nose once daily. BIOTIN ORAL Take 5,000 mcg by mouth once daily. MULTIVITAMIN TAB Take one(1) tablet by mouth daily. REVIEW OF SYSTEMS: D/N = 2/1 Hematuria: none Dysuria: none Incontinence: none Urgency: none Medications to aid urination: No Bowel movement frequency: 1/day Bowel movement quality: normal Blood per rectum: none Sexual activity: Not sexually active PHYSICAL EXAM: BP 140/61 Pulse (!) 41 Resp 18 Wt 68.2 kg (150 lb 6.4 oz) SpO2 98% BMI 23.04 kg/m? KPS: 100 General Appearance: Alert and oriented. No acute distress. ASSESSMENT/PLAN: 79 yo gentleman with hx of adenocarcinoma of the prostate, initial PSA of 7.27 ng/mL, Annette of 3+4=7. Status post I-125 seed implantation on 06/15/2021. 1. Encounter for follow-up surveillance of prostate cancer (Z08) Prostate cancer (HCC) (C61) Patient completed brachytherapy on 06/15/2021. Recent (more content not included)... Normal [facility] UA DIP, URINE (POC)on 2024 BILIRUBIN UA (POCT) Negative Negative [facility] CLARITY UA (POCT) Clear [facility] COLOR UA (POCT) Yellow [facility] GLUCOSE UA (POCT) Negative Negative mg/dL [facility] Hemoglobin Ql (U) Negative Negative [facility] KETONE UA (POCT) Negative Negative mg/dL [facility] LEUKOCYTES UA (POCT) Negative Negative [facility] NITRITE UA (POCT) Negative Negative [facility] PH UA (POCT) 7.5 4.5 - 8.0 [facility] Protein Ql (U) Negative Negative mg/dL [facility] SPECIFIC GRAVITY UA (POCT) 1.020 1.005 - 1.030 [facility] UROBILINOGEN UA (POCT) 0.2 Normal E.U./dL [facility] Location:[facility] luisa, [address] [place] [address], [address] [place] [address] POINT OF CARE [facility] Casey 10-15-2024 BERNARDO Telephone (AGCARDSU ) -- RYLEY MCKEON ([id number]) 1945 M Date Time Provider Department 10/15/24 TREY GUZMAN During your visit today, we recorded the following information about you: Jazmin Olmstead 10/15/2024 3:04 PM Signed Patient is scheduled for a WM/PFA on 11/[address] Guzman. The hospital will call the day before between 2-5pm with your arrival time. You should not eat or drink after midnight the day before the procedure. You will need a sanitation truck driver when released from the hospital and you will stay overnight for observation. You should continue to take medications as prescribed the morning of the procedure with just a sip of water unless otherwise instructed. PAT to call and scheduled HANDP/EKG Spoke with Ryley Mckeon on October 15, 2024. Informed of instructions as stated above. Patient verbalized understanding. Sarah Beth Vega RN 10/15/2024 3:24 PM Signed Pt's name has been added to [facility] procedure board. TIMMY Torrez Emily 10/16/2024 11:33 AM Signed Confirmed with patient and spouse that he is to continue taking all doses of Xarelto as prescribed. He is aware that if he misses any doses, procedure will be canceled and rescheduled. Jazmin Olmstead Allergies As of Date: 10/15/2024 Noted Allergy Reaction HYDROCODONE 02/11/2018 11 - Vomiting OXYCODONE 02/11/2018 11 - Vomiting PERCOCET (OXYCODONE-ACETAMINOPHEN)0 05/01/2017 8 - GI Upset Date Reviewed: 08/25/2024 Reviewed by: Lisa Yang MA - Fully Assessed Reason for Visit: Preparations For Procedures [899] Prescriptions as of 10/16/2024 - amoxicillin (AMOXIL) 500 mg capsule Take 500 mg by mouth three times a day. - losartan (COZAAR) 50 mg tablet Take 1 tablet by mouth once daily. (Dr. Nelson) - atorvastatin (LIPITOR) 40 mg tablet Take 1 tablet by mouth once daily. (Dr. Nelson) - iv contrast (will be provided with radiology test) CT Urogram WO/W Inject, intravenously, once for 1 dose.No IV access, insert saline lock prior to the beginning of sedation, infusion, injection of imaging exam. Discontinue saline lock post exam. If Pt. has a central line or IVAD, may access for administration according to line specific nursing protocol. Once exam is complete flush line and de-access according to line specific nursing protocol in the CT contrast administration guidelines link. - LORazepam (ATIVAN) 0.5 mg Take 0.25 mg by mouth once daily as needed. - metoprolol tartrate, short acting, (LOPRESSOR) 25 mg tablet Take 25 mg by mouth two times a day. Morning and night - buPROPion XL (WELLBUTRIN XL) 300 mg 24 hr tablet Take 1 tablet by mouth once daily. - XARELTO 20 mg tablet Take 20 mg by mouth once daily. - coenzyme Q10 (COENZYME Q-10) 100 mg cap capsule Take 100 mg by mouth twice daily. - ZINC ACETATE ORAL Take by mouth. - triamcinolone acetonide (NASACORT NASAL) Use in the nose once daily. - BIOTIN ORAL Take 5,000 mcg by mouth once daily. - MULTIVITAMIN TAB Take one(1) tablet by mouth daily. Problem List As Of Date 10/15/2024 Noted Resolved S/P mitral valve repair [Z98.890] 08/31/2008 Palpitations [R00.2] 05/28/2017 06/13/2021 MVP (mitral valve prolapse) [I34.1] 05/28/2017 detention (current) use of anticoagulants [Z79.* At risk for stroke [Z91.89] Persistent atrial fibrillation (HCC) [I48.19] Bradycardia [R00.1] Sinus bradycardia [R00.1] 06/13/2021 Premature ventricular contractions (PVCs) (VPCs* Atrial flutter (HCC) [I48.92] Sinus node dysfunction (HCC) [I49.5] Malignant neoplasm of prostate (HCC) [C61] 03/16/2021 Anxiety and depression [F41.9, F32.A] 06/13/2021 LISSETTE (obstructive sleep apnea) [G47.33] 06/13/2021 CAD (coronary artery disease) [I25.10] 06/13/2021 Essential (primary) hypertension [I10] 06/13/2021 Dyslipidemia [E78.5] 06/13/2021 Tricuspid insufficiency [I07.1] 06/13/2021 Systolic dysfunction [I51.9] 06/13/2021 Mitral valve prolapse [I34.1] 08/07/2010 Myxomatous mitral valve regurgitation [I34.0] 05/14/2024 Gross hematuria [R31.0] 05/16/2024 At risk for bleeding associated with anticoagul*05/16/2024 Encounter Status:Closed by JAZMIN OLMSTEAD on 10/15/24 [facility] CNOVon 08-25-2024 CNOV Office Visit (INTMWS ) -- RANDYRYLEY MAYA ([id number]) 1945 Date Time Provider Department 08/25/24 9:20 AM JOHNNIE ROSS INTMWS During your visit today, we recorded the following information about you: Pulse Blood pressure Weight Height 56/minute 130/71 68.7 kg 1.721 m Johnnie Ross MD 09/14/2024 12:14 AM Signed This note was created using [employer]. Subjective Ryley Loganarmando is a 79 year old male. Patient presents with: Follow Up Ryley is a 79-year-old male with a history of atrial fibrillation, presenting for a 6-month follow-up. Ryley is awaiting a Watchman device implantation and reports that a CTA was completed over a month ago. He has been informed that the EP lab controls the scheduling and that he is tentatively scheduled for the procedure sometime in November. He expresses frustration with the lack of a specific date and requests assistance in confirming the schedule. Ryley recently contracted COVID-19 while visiting family in [place], with a positive test on July 30. He was prescribed molnupiravir due to his underlying heart condition and has completed the course of therapy. He reports residual phlegm and a mild tickly cough but denies any other symptoms of long COVID, such as severe dyspnea or cardiomyopathy. He inquires about the duration of immunity post-COVID infection and the necessity of future COVID vaccinations. Ryley is currently on a medication regimen that includes Wellbutrin, losartan 50 mg daily, metoprolol 25 mg BID, Xarelto 20 mg daily, zinc, Nasacort, a multivitamin, and Lipitor 40 mg daily. He also takes amoxicillin prophylactically for dental procedures. He denies experiencing any palpitations or tachycardia and reports no swelling. 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 Langston ([facility]) in 2008, considered to be benign PVCs; improved with beta-michell but developed fatigue, then treated with verapamil Prostate cancer (HCC) followed by Dr. Thomas Retinal detachment, left 01/2016 Sinus bradycardia Sinus node dysfunction (HCC) probably in part due to recurrent atrial arrhythmias Unspecified constipation Current Outpatient Medications Medication Sig amoxicillin (AMOXIL) 500 mg capsule Take 500 mg by mouth three times a day. iv contrast (will be provided with radiology test) CT Urogram WO/W Inject, intravenously, once for 1 dose.No IV access, insert saline lock prior to the beginning of sedation, infusion, injection of imaging exam. Discontinue saline lock post exam. If Pt. has a central line or IVAD, may access for administration according to line specific nursing protocol. Once exam is complete flush line and de-access according to line specific nursing protocol in the CT contrast administration guidelines link. LORazepam (ATIVAN) 0.5 mg Take 0.25 mg by mouth once daily as needed. metoprolol tartrate, short acting, (LOPRESSOR) 25 mg tablet Take 25 mg by mouth two times a day. Morning and night buPROPion XL (WELLBUTRIN XL) 300 mg 24 hr tablet Take 1 tablet by mouth once daily. XARELTO 20 mg tablet Take 20 mg by mouth once daily. coenzyme Q10 (COENZYME Q-10) 100 mg cap capsule Take 100 mg by mouth twice daily. ZINC ACETATE ORAL Take by mouth. triamcinolone acetonide (NASACORT NASAL) Use in the nose once daily. BIOTIN ORAL Take 5,000 mcg by mouth once daily. MULTIVITAMIN TAB Take one(1) tablet by mouth daily. losartan (COZAAR) 50 mg tablet Take 1 tablet by mouth once daily. (Dr. Nelson) atorvastatin (LIPITOR) 40 mg tablet Take 1 tablet by mouth once daily. (Dr. Nelson) No current facility-administered medications for this visit. Review of Systems Objective BP 130/71 Pulse (!) 56 Ht 172.1 cm (5' 7.75) Wt 68.7 kg (151 lb 7.3 oz) BMI 23.20 kg/m? Physical Exam Vitals reviewed. Constitutional: Appearan (more content not included)... Normal [facility] CBC W Auto Differential pane l (Bld)on 08-22-2024 Basophils (Bld) [#/Vol] 0.05 10*3/uL Normal <0.11 [facility] Comment on above: Order Comment: Speci men Type: BLOOD SPECIMENOrdering Facility: [facility] Address: [address] [place] [address] Performed By: #### 5 7021-8 ####[facility] LABCLIA [id number] [place] [address] [place] Basophils/100 WBC (Bld) 0.7 % Normal [facility] Comment on above: Order Comment: Speci men Type: BLOOD SPECIMENOrdering Facility: [facility] Address: [address] [place] [address] Performed By: #### 5 7021-8 ####[facility] LABCLIA [id number] [address] [place] Differential cell count method Nom (Bld) Auto Normal [facility] Comment on above: Order Comment: Speci men Type: BLOOD SPECIMENOrdering Facility: [facility] Address: [address] [place] [address] Performed By: #### 5 7021-8 ####[facility] LABCLIA [id number] [place] [address] [place] Eosinophils (Bld) [#/Vol] 0.21 10*3/uL Normal <0.46 [facility] Comment on above: Order Comment: Speci men Type: BLOOD SPECIMENOrdering Facility: [facility] Address: [address] [place] [address] Performed By: #### 5 7021-8 ####[facility] LABCLIA [id number] [place] [address] [place] Eosinophils/100 WBC (Bld) 3.0 % Normal [facility] Comment on above: Order Comment: Speci men Type: BLOOD SPECIMENOrdering Facility: [facility] Address: [address] [place] [address] Performed By: #### 5 7021-8 ####[facility] LABIA [id number] [place] [address] [place] Erythrocyte distribution width (RBC) [Ratio] 13.4 % Normal 11.5-15.0 [facility] Comment on above: Order Comment: Speci men Type: BLOOD SPECIMENOrdering Facility: [facility] Address: [address] [place] [address] Performed By: #### 5 7021-8 ####[facility] LABIA [id number] [place] [address] [place] Hematocrit (Bld) [Volume fraction] 40.6 % Normal 39.0-51.0 [facility] Comment on above: Order Comment: Speci men Type: BLOOD SPECIMENOrdering Facility: [facility] Address: [address] [place] [address] Performed By: #### 5 7021-8 ####[facility] LABCLIA [id number] [address] [place] [address] [place] Hemoglobin (Bld) [Mass/Vol] 13.4 g/dL Normal 13.0-17.0 [facility] Comment on above: Order Comment: Speci men Type: BLOOD SPECIMENOrdering Facility: [facility] Address: [address] [place] [address] Performed By: #### 5 7021-8 ####[facility] LABCLIA [id number] [address], [facility] [place] Immature granulocytes (Bld) [#/Vol] 10*3/uL Normal <0.10 [facility] Comment on above: Order Comment: Speci men Type: BLOOD SPECIMENOrdering Facility: [facility] Address: [address] [place] [address] Performed By: #### 5 7021-8 ####[facility] LABCLIA [id number] [address], [facility] [place] Immature granulocytes/100 WBC (Bld) 0.1 % Normal [facility] Comment on above: Order Comment: Speci men Type: BLOOD SPECIMENOrdering Facility: [facility] Address: [address] [place] [address] Performed By: #### 5 7021-8 ####[facility] LABCLIA [id number] [facility] [address] [place] [address] [place] Lymphocytes (Bld) [#/Vol] 2.48 10*3/uL Normal 1.00-4.00 [facility] Comment on above: Order Comment: Speci men Type: BLOOD SPECIMENOrdering Facility: [facility] Address: [address] [place] [address] Performed By: #### 5 7021-8 ####[facility] LABCLIA [id number] [address] [address] [place] Lymphocytes/100 WBC (Bld) 35.4 % Normal [facility] Comment on above: Order Comment: Speci men Type: BLOOD SPECIMENOrdering Facility: [facility] Address: [address] [place] [address] Performed By: #### 5 7021-8 ####[facility] LABCLIA [id number] [place] [address] [place] MCH (RBC) [Entitic mass] 30.7 pg Normal 26.0-34.0 [facility] Comment on above: Order Comment: Speci men Type: BLOOD SPECIMENOrdering Facility: [facility] Address: [address] [place] [address] Performed By: #### 5 7021-8 ####[facility] LABIA [id number] [place] [address] [place] MCHC (RBC) [Mass/Vol] 33.0 g/dL Normal 30.5-36.0 [facility] Comment on above: Order Comment: Speci men Type: BLOOD SPECIMENOrdering Facility: [facility] Address: [address] [place] [address] Performed By: #### 5 7021-8 ####[facility] LABIA [id number] [place] [address] [place] MCV (RBC) [Entitic vol] 92.9 fL Normal 80.0-100.0 [facility] Comment on above: Order Comment: Speci men Type: BLOOD SPECIMENOrdering Facility: [facility] Address: [address] [place] [address] Performed By: #### 5 7021-8 ####[facility] LABIA [id number] [place] [address] [place] Monocytes (Bld) [#/Vol] 0.59 10*3/uL Normal <0.87 [facility] Comment on above: Order Comment: Speci men Type: BLOOD SPECIMENOrdering Facility: [facility] Address: [address] [place] [address] Performed By: #### 5 7021-8 ####[facility] LABCLIA [id number] [place] [address] [place] Monocytes/100 WBC (Bld) 8.4 % Normal [facility] Comment on above: Order Comment: Speci men Type: BLOOD SPECIMENOrdering Facility: [facility] Address: [address] [place] [address] Performed By: #### 5 7021-8 ####[facility] LABCLIA [id number] [place] [address] [place] Neutrophils (Bld) [#/Vol] 3.66 10*3/uL Normal 1.45-7.50 [facility] Comment on above: Order Comment: Speci men Type: BLOOD SPECIMENOrdering Facility: [facility] Address: [address] [place] [address] Performed By: #### 5 7021-8 ####[facility] LABCLIA [id number] [place] [address] [place] Neutrophils/100 WBC (Bld) 52.4 % Normal [facility] Comment on above: Order Comment: Speci men Type: BLOOD SPECIMENOrdering Facility: [facility] Address: [address] [place] [address] Performed By: #### 5 7021-8 ####[facility] LABCLIA [id number] [place] [address] [place] Nucleated RBC (Bld) [#/Vol] 10*3/uL Normal <0.01 [facility] Comment on above: Order Comment: Speci men Type: BLOOD SPECIMENOrdering Facility: [facility] Address: [address] [place] [address] Performed By: #### 5 7021-8 ####[facility] LABCLIA [id number] [place] [address] [place] Nucleated RBC/100 WBC (Bld) [Ratio] 0.0 /100 WBC Normal [facility] Comment on above: Order Comment: Speci men Type: BLOOD SPECIMENOrdering Facility: [facility] Address: [address] [place] [address] Performed By: #### 5 7021-8 ####[facility] LABCLIA [id number] [place] [address] [place] Platelet mean volume (Bld) [Entitic vol] 9.1 fL Normal 9.0-12.7 [facility] Comment on above: Order Comment: Speci men Type: BLOOD SPECIMENOrdering Facility: [facility] Address: [address] [place] [address] Performed By: #### 5 7021-8 ####[facility] LABCLIA [id number] [place] [address] [place] Platelets (Bld) [#/Vol] 280 10*3/uL Normal 150-400 [facility] Comment on above: Order Comment: Speci men Type: BLOOD SPECIMENOrdering Facility: [facility] Address: [address] [place] [address] Performed By: #### 5 7021-8 ####[facility] LABCLIA [id number] [place] [address] [place] RBC (Bld) [#/Vol] 4.37 10*6/uL Normal 4.20-6.00 [facility] Comment on above: Order Comment: Speci men Type: BLOOD SPECIMENOrdering Facility: [facility] Address: [address] [place] [address] Performed By: #### 5 7021-8 ####[facility] LABCLIA [id number] [place] [id number] [place] WBC (Bld) [#/Vol] 7.00 10*3/uL Normal 3.70-11.00 [facility] Comment on above: Order Comment: Speci men Type: BLOOD SPECIMENOrdering Facility: [facility] Address: [address] [place] [address] Performed By: #### 5 7021-8 ####[facility] LABCLIA [id number] [address] [address] [place] Comprehensive metabolic 2000 panelon 08-22-2024 Albumin [Mass/Vol] 4.0 g/dL Normal 3.9-4.9 [facility] Comment on above: Order Comment: Speci men Type: BLOOD SPECIMENOrdering Facility: [facility] Address: [address] [place] [address] Performed By: #### 2 986-8, 94298-8, 33144-8 ####[facility] LABIA [id number] [place] [address] [place] ALP [Catalytic activity/Vol] 96 U/L Normal 38-113 [facility] Comment on above: Order Comment: Speci men Type: BLOOD SPECIMENOrdering Facility: [facility] Address: [address] [place] [address] Performed By: #### 2 986-8, 38329-7, 79603-4 ####[facility] LABIA [id number] [place] [address] [place] ALT [Catalytic activity/Vol] 28 U/L Normal 10-54 [facility] Comment on above: Order Comment: Speci men Type: BLOOD SPECIMENOrdering Facility: [facility] Address: [address] [place] [address] Performed By: #### 2 986-8, 68734-3, 86002-9 ####[facility] LABIA [id number] [place] [id number] [place] Anion gap [Moles/Vol] 8 mmol/L Normal 8-15 [facility] Comment on above: Order Comment: Speci men Type: BLOOD SPECIMENOrdering Facility: [facility] Address: [address] [place] [address] Performed By: #### 2 986-8, 41214-6, 39693-8 ####[facility] LABIA [id number] [place] [address] [place] AST [Catalytic activity/Vol] 24 U/L Normal 14-40 [facility] Comment on above: Order Comment: Speci men Type: BLOOD SPECIMENOrdering Facility: [facility] Address: [address] [place] [address] Performed By: #### 2 986-8, 80790-8, 58253-4 ####[facility] LABIA [id number] [place] [address] [place] Bilirubin [Mass/Vol] 0.6 mg/dL Normal 0.2-1.3 [facility] Comment on above: Order Comment: Speci men Type: BLOOD SPECIMENOrdering Facility: [facility] Address: [address] [place] [address] Performed By: #### 2 986-8, 62144-8, 35302-7 ####[facility] LABIA [id number] [place] [address] [place] Calcium [Mass/Vol] 9.0 mg/dL Normal 8.5-10.2 [facility] Comment on above: Order Comment: Speci men Type: BLOOD SPECIMENOrdering Facility: [facility] Address: [address] [place] [address] Performed By: #### 2 986-8, 83219-0, 43869-5 ####[facility] [id number] [place] [id number] [place] Chloride [Moles/Vol] 105 mmol/L Normal 98-107 [facility] Comment on above: Order Comment: Speci men Type: BLOOD SPECIMENOrdering Facility: [facility] Address: [address] [place] [address] Performed By: #### 2 986-8, 55527-5, ####[facility] LABCLIA [id number] [place] [id number] [place] CO2 [Moles/Vol] 28 mmol/L Normal 22-30 [facility] Comment on above: Order Comment: Speci men Type: BLOOD SPECIMENOrdering Facility: [facility] Address: [address] [place] [address] Performed By: #### 2 986-8, , ####[facility] LABIA [id number] [place] [address] [place] Creatinine [Mass/Vol] 0.81 mg/dL Normal 0.73-1.22 [facility] Comment on above: Order Comment: Speci men Type: BLOOD SPECIMENOrdering Facility: [facility] Address: [address] [place] [address] Performed By: #### 2 986-8, , ####[facility] [id number] [place] [address] [place] Creatinine and Glomerular filtration rate.predicted panel (S/P/Bld) 91 mL/min/1.73m??? Normal >=60 [facility] Comment on above: Order Comment: Speci men Type: BLOOD SPECIMENOrdering Facility: [facility] Address: [address] [place] [address] Result Comment: Denisse mated Glomerular Filtration Rate (eGFR) is calculated using the 2020 CKD-EPI creatinine equation. This equation utilizes serum creatinine, sex, and age as parameters. The creatinine assay has traceable calibration to isotope dilution-mass spectrometry. Refer to KDIGO guidelines for clinical interpretation. In patients with unstable renal function, e.g. those with acute kidney injury, the eGFR may not accurately reflect actual GFR. Performed By: #### 2 986-8, 52416-5, 36298-0 ####[facility] LABIA [id number] [place] [address] [place] Glucose [Mass/Vol] 106 mg/dL High 74-99 [facility] Comment on above: Order Comment: Speci men Type: BLOOD SPECIMENOrdering Facility: [facility] Address: [address] [place] [address] Result Comment: The [place] Diabetes Association (ADA) provides guidance for cutoff values for fasting glucose and random glucose. The ADA defines fasting as no caloric intake for at least 8 hours. Fasting plasma glucose results between 100 to 125 mg/dL indicate increased risk for diabetes (prediabetes). Fasting plasma glucose results greater than or equal to 126 mg/dL meet the criteria for diagnosis of diabetes. In the absence of unequivocal hyperglycemia, results should be confirmed by repeat testing. In a patient with classic symptoms of hyperglycemia or hyperglycemic crisis, random plasma glucose results greater than or equal to 200 mg/dL meet the criteria for diagnosis of diabetes. Reference: Standards of Medical Care in Diabetes 2016, [place] Diabetes Association. Diabetes Care. 2016.39(Suppl 1). Performed By: #### 2 986-8, 80381-1, 77091-7 ####[facility] LABCLIA [id number] [place] [address] [place] Potassium [Moles/Vol] 4.1 mmol/L Normal 3.7-5.1 [facility] Comment on above: Order Comment: Speci men Type: BLOOD SPECIMENOrdering Facility: [facility] Address: [address] [place] [address] Performed By: #### 2 986-8, 45419-6, 66487-2 ####[facility] LABCLIA [id number] [place] [id number] [place] Protein [Mass/Vol] 6.1 g/dL Low 6.3-8.0 [facility] Comment on above: Order Comment: Speci men Type: BLOOD SPECIMENOrdering Facility: [facility] Address: [address] [place] [address] Performed By: #### 2 986-8, 31169-7, 18747-8 ####[facility] LABCLIA [id number] [address] [address] [place] Sodium [Moles/Vol] 141 mmol/L Normal 136-144 [facility] Comment on above: Order Comment: Speci men Type: BLOOD SPECIMENOrdering Facility: [facility] Address: [address] [place] [address] Performed By: #### 2 986-8, 20253-4, 39783-1 ####[facility] LABCLIA [id number] [address] [address] [place] Urea nitrogen [Mass/Vol] 12 mg/dL Normal 9-24 [facility] Comment on above: Order Comment: Speci men Type: BLOOD SPECIMENOrdering Facility: [facility] Address: [address] [place] [address] Performed By: #### 2 986-8, 57475-1, 41334-7 ####[facility] LABIA [id number] [place] [address] [place] HbA1c (Bld)on 08-22-2024 Average glucose Estimated from glycated hemoglobin (Bld) [Mass/Vol] 114 mg/dL Normal [facility] Comment on above: Order Comment: Speci men Type: BLOOD SPECIMENOrdering Facility: [facility] Address: [address] [place] [address] Result Comment: eAG: (Estimated average glucose) is a calculated value from HgbA1c and is technology sales representative of the average blood glucose level in the last 2-3 month period. Performed By: #### 5 5454-3 ####[facility] LABIA [id number] [place] [id number] [place] HbA1c (Bld) [Mass fraction] 5.6 % Normal 4.3-5.6 [facility] Comment on above: Order Comment: Speci men Type: BLOOD SPECIMENOrdering Facility: [facility] Address: [address] [place] [address] Result Comment: [place] Diabetes Association guidelines indicate that patients with HgbA1c in the range 5.7-6.4% are at increased risk for development of diabetes, and intervention by lifestyle modification may be beneficial. HgbA1c greater or equal to 6.5% is considered diagnostic of diabetes. Performed By: #### 5 5454-3 ####[facility] LABCLIA [id number] [facility] [id number] [place] [address] [place] Lipid 1996 panelon 5 Cholesterol [Mass/Vol] 122 mg/dL Normal <200 [facility] Comment on above: Order Comment: Speci men Type: BLOOD SPECIMENOrdering Facility: [facility] Address: [address] [place] [address] Result Comment: <200 mg/dL, Desirable 200-239 mg/dL, Borderline high >239 mg/dL, High Performed By: #### 2 986-8, 82840-6, 28682-0 ####[facility] LABCLIA [id number] [facility] [address] [place] [address] [place] Cholesterol in HDL [Mass/Vol] 43 mg/dL Normal >39 [facility] Comment on above: Order Comment: Walt khan Type: BLOOD SPECIMENOrdering Facility: [facility] Address: [address] [place] [address] Result Comment: 40-5 9 mg/dL, Acceptable >59 mg/dL, High: Negative risk factor for coronary heart disease <40 mg/dL, Low: Positive risk factor for coronary heart disease Performed By: #### 2 986-8, 07439-4, 55352-8 ####[facility] LABCLIA [id number] [address] [place] [address] [facility] [place] Cholesterol in LDL [Mass/Vol] 68 mg/dL Normal <100 [facility] Comment on above: Order Comment: Walt khan Type: BLOOD SPECIMENOrdering Facility: [facility] Address: [address] [place] [address] Result Comment: <100 mg/dL, Optimal 100-129 mg/dL, Near optimal/above optimal 130-159 mg/dL, Borderline high 160-189 mg/dL, High >189 mg/dL, Very high Secondary prevention optimal LDL Cholesterol levels are recommended to be <70 mg/dL LDL cholesterol is calculated using the Garcia-NIH equation. Performed By: #### 2 986-8, 03050-9, 10704-3 ####[facility] LABCLIA [id number] [address] [address] [place] Cholesterol in LDL/Cholesterol in HDL [Mass ratio] 1.58 {ratio} Normal <2.54 [facility] Comment on above: Order Comment: Speci men Type: BLOOD SPECIMENOrdering Facility: [facility] Address: [address] [place] [address] Result Comment: Refe rence: 1. National Cholesterol Education Program ATP III Guideline At-A-Glance Quick Desk Reference: National Heart, Lung, and Blood [place]. National Institutes of Health. 2001: NIH Publication No. 01-3305. 2. An International Atherosclerosis Society position paper: global recommendations for the management of dyslipidemia: executive summary, Atherosclerosis. 2014: 232(2):410-413. Performed By: #### 2 986-8, , 48211-0 ####[facility] LABIA [id number] [address] [address] [place] Cholesterol in VLDL [Mass/Vol] 7 mg/dL Normal <30 [facility] Comment on above: Order Comment: Speci men Type: BLOOD SPECIMENOrdering Facility: [facility] Address: [address] [place] [address] Performed By: #### 2 986-8, 01286-7, ####[facility] LABIA [id number] [address] [address] [place] Cholesterol non HDL [Mass/Vol] 79 mg/dL Normal <130 [facility] Comment on above: Order Comment: Speci men Type: BLOOD SPECIMENOrdering Facility: [facility] Address: [address] [place] [address] Result Comment: <130 mg/dL, Optimal 130-159 mg/dL, Near optimal/above optimal 160-189 mg/dL, Borderline high 190-219 mg/dL, High >219 mg/dL, Very high Secondary prevention optimal non HDL Cholesterol levels are recommended to be <100 mg/dL Performed By: #### 2 986-8, 80708-5, 98085-8 ####[facility] LABCLIA [id number] [facility] [address] [place] [address] [place] Cholesterol.total/C holesterol in HDL [Mass ratio] 2.84 {ratio} Normal <5.10 [facility] Comment on above: Order Comment: Speci men Type: BLOOD SPECIMENOrdering Facility: [facility] Address: [address] [place] [address] Performed By: #### 2 986-8, 42650-7, ####[facility] LABCLIA [id number] [place] [id number] [place] FASTING TIME 12 hrs Normal [facility] Comment on above: Order Comment: Speci men Type: BLOOD SPECIMENOrdering Facility: [facility] Address: [address] [place] [address] Performed By: #### 2 986-8, , ####[facility] LABCLIA [id number] [address] [address] [place] Triglyceride [Mass/Vol] 46 mg/dL Normal <150 [facility] Comment on above: Order Comment: Speci men Type: BLOOD SPECIMENOrdering Facility: [facility] Address: [address] [place] [address] Result Comment: <150 mg/dL, Normal 150-199 mg/dL, Borderline high 200-499 mg/dL, High >499 mg/dL, Very high Performed By: #### 2 986-8, 17922-5, ####[facility] LABCLIA [id number] [address] [place] [address] [place] PSA SerPl-mCncon 08-22-2024 Prostate specific Ag [Mass/Vol] 0.18 ng/mL Normal <2.60 [facility] Comment on above: Order Comment: Speci men Type: BLOOD SPECIMENOrdering Facility: [facility] Address: [address] [place] [address] Result Comment: Tota l PSA test methodology used is the Electrochemiluminescence Immunoassay by [employer]. Total PSA values by differing methodologies cannot be interchanged. Performed By: #### 2 857-1 ####[facility] [id number] [address] Testost SerPl-mCncon 025 Testosterone [Mass/Vol] 482 ng/dL Normal 193-824 [facility] Comment on above: Order Comment: Speci men Type: BLOOD SPECIMENOrdering Facility: [facility] Address: [address] [place] [address] Result Comment: A te stosterone level in the 193-320 ng/dL range with associated clinical symptoms is considered low and may indicate hypogonadism (from NEJ 2010 363:123-135). Results >320 ng/dL are considered normal. Performed By: #### 2 986-8, 97340-1, 42861-1 ####[facility] [id number] [address] [facility]-20[facility] -- RYLEY MCKEON ([id number]) 1945 M Date Time Provider Department 07/30/24 JOHNNIE ROSS INTWS During your visit today, we recorded the following information about you: Nieves Hsieh, TIMMY 07/30/2024 7:25 PM Signed Pt's Michelle calling distressed as she states she and her just got to [place] yesterday. Pt wasn't feeling well so they went to an Urgent Care in [place]. Pt has COVID and provider from urgent care prescribed: very upset as their insurance will not pay for it and it is $1000. states she called PCP earlier and was told that she would have to go back and speak to the [facility] regarding cost and a prior authorization. states the [facility] told her they do not do that. So pt's called the Prescription service and was told that anyone can call and tell the insurance company that pt is on a blood thinner and that is why he cannot take Paxlovid. That is all the info they need to approve the medication. pleading with nurse to call and tell them this information. She states pharmacy insurance company is [employer] and phone number is [phone]. Pt's ID# is [id number]. Called and spoke with Sergo wheatley at [facility]. Explained the situation to him and that as pt's PCP we can confirm that pt is taking Xarelto which makes him unable to take Paxlovid. Sergo kept saying they need a prior authorization. Explained again that PCP can not do a Prior authorization on a medication that she did not prescribe. Brought Michelle in to the call to explain this again and that [facility] is requesting a prior authorization. asked again if Dr. Ross could then prescribe the medication. Explained again that she cannot prescribe outside of state lines and that we cannot do a prior auth on med she did not prescribe. Said to Sergo again as [facility] technology sales representative that all nurse could tell him was that pt is currently taking Xarelto which makes him ineligible to take Paxlovid. Asked Sergo if he could please take this information to whomever to see if they could help this pt get the following medication authorized: molnupiravir (LAGEVRIO) 200mg Cap Sindi Alvarado LPN 07/31/2024 8:59 AM Signed Fax rec'd from [facility]. They are asking dx for lagevrio. This was marked as COVID and faxed back. This was the only question. Sindi Alvarado LPN 07/31/2024 10:26 AM Signed Approval rec'd . This is in scanned documents. Pt's spouse notified. Allergies As of Date: 07/30/2024 Noted Allergy Reaction HYDROCODONE 02/11/2018 11 - Vomiting OXYCODONE 02/11/2018 11 - Vomiting PERCOCET (OXYCODONE-ACETAMINOPHEN)0 05/01/2017 8 - GI Upset Date Reviewed: 07/13/2024 Reviewed by: Sarah Beth Fuentes LPN - Fully Assessed Reason for Visit: Medication Problem [65] Cmt: molnupiravir (LAGEVRIO) Pt currently out of state [Other] Prescriptions as of 07/31/2024 - iv contrast (will be provided with radiology test) CT Urogram WO/W Inject, intravenously, once for 1 dose.No IV access, insert saline lock prior to the beginning of sedation, infusion, injection of imaging exam. Discontinue saline lock post exam. If Pt. has a central line or IVAD, may access for administration according to line specific nursing protocol. Once exam is complete flush line and de-access according to line specific nursing protocol in the CT contrast administration guidelines link. - LORazepam (ATIVAN) 0.5 mg Take 0.25 mg by mouth once daily as needed. - metoprolol tartrate, short acting, (LOPRESSOR) 25 mg tablet Take 25 mg by mouth two times a day. Morning and night - buPROPion XL (WELLBUTRIN XL) 300 mg 24 hr tablet Take 1 tablet by mouth once daily. - XARELTO 20 mg tablet Take 20 mg by mouth once daily. - coenzyme Q10 (COENZYME Q-10) 100 mg cap capsule Take 100 mg by mouth twice daily. - ZINC ACETATE ORAL Take by mouth. - triamcinolone acetonide (NASACORT NASAL) Use in the nose once daily. - atorvastatin (LIPITOR) 40 mg tablet Take 40 mg by mouth once daily. - losartan (COZAAR) 25 mg tablet Take 50 mg by mouth once daily. - BIOTIN ORAL Take 5,000 mcg by mouth once daily. - MULTIVITAMIN TAB Take one(1) tablet by mouth daily. 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 Normal [facility] Cardiology Visit Reporton Cardiology Visit Report [facility] [address] [place], [place] [address] OFFICE VISIT Date of Service: 07/22/24 MR#: [id number] Acct: [id number] Name: RYLEY MCKEON Rep #: [id number] : 1945 Provider: CAM miller Age/Sex: 79/M [place] [facility] [place] Status: Signed HPI HPI History of Present Illness Details: RYLEY MCKEON, is a 79M who presents to the office today for a follow-up visit. He is a gentleman with a history of mitral valve disease status post mitral valve repair for mitral valve prolapse in 2000 at the [facility]. He had presented a while ago with atrial flutter for which she underwent YURIDIA guided cardioversion and repeat cardioversion. 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 He sought the EP doctors at [facility] and it was decided to pursue expectant therapy. He has done well since. He did have an echocardiogram performed in 2021 which demonstrated stable ejection fraction of 60% and stable status post mitral valve repair with an annuloplasty ring. He had transesophageal echocardiogram and cardioversion on 04/06/2024. He presented to office on 04/13/2024 for a post cardioversion ECG. This showed sinus bradycardia at a rate of 46 bpm. His metoprolol was placed on hold. On 04/17/2024 he underwent repeat ECG that showed atrial fibrillation at a rate of 120 bpm. He was seen with [facility], electrophysiology team, Dr. Guzman on 05/15/2024. He will be scheduled for atrial fibrillation/flutter catheter based ablation and possibly Watchman left atrial appendage closure device implant if he can safely tolerate anticoagulation for short term. He is being evaluated with urology for hematuria. He denies chest, arm, jaw, or neck discomfort. He acknowledges palpitations that he describes as a flutter sensation. He denies bilateral lower extremity edema. He denies claudication. He states shortness of breath with activity such as talking. He denies shortness of breath at rest, orthopnea, or PND. He denies chronic cough. He denies significant, sudden weight gain. He denies lightheadedness, dizziness, near-syncope, or syncope. He denies blood in urine, blood in stool, or epistaxis. He denies fever with chills. He denies myalgia. He states fatigue. His exercise level has remained stable. 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 Accompanied by: Is patient in pain?: No Allergies hydrocodone (From Vicodin) Allergy (Mild, Verified 07/22/24 10:43) Nausea oxycodone (From Percocet) Adverse Reaction (Intermediate, Verified 07/22/24 10:43) nausea Medications ???Medication ???Instructions ???Recorded ???Confirmed ???Type multivitamin with folic acid 400 1 tab PO DAILY 10/06/13 07/22/24 H istory mcg tablet bupropion HCl 300 mg 24 hr tablet, 300 mg PO QAM 07/05/17 07/22/24 History extended release triamcinolone acetonide 55 mcg 2 spray intranasal QDAY 09/24/17 0 07/22/24 History nasal spray aerosol (Nasacort) coenzyme Q10 100 mg capsule 100 mg PO DAILY 08/21/19 07/22/24 History zinc 50 mg tablet 50 mg PO DAILY 08/23/20 07/22/24 H istory biotin 5 mg capsule 5 mg PO DAILY 10/16/22 07/22/24 Hi story atorvastatin 40 mg tablet 40 mg PO QHS #90 TABLETS 11/04/23 07/22/24 Rx losartan 50 mg tablet 50 mg PO DAILY #90 tabs 01/08/24 0 07/22/24 Rx amoxicillin 500 mg capsule 2,000 mg PO ONCE PRN 04/17/2407/07 History rivaroxaban 20 mg tablet (Xarelto) 20 mg PO DAILY #90 tabs 04/17/24 07/22/24 Rx metoprolol tartrate 25 mg tablet 25 mg PO BID #180 tabs 04/22/24 Rx lorazepam 0.5 mg tablet 0.25 mg PO DAILY PRN PRN Anxiety 0 07/22/24 07/22/24 History Ejection fraction %: 50 Have you fallen in the past year?: No PFSH Medical History Nonobstructive atherosclerosis of coronary artery Myxomatous mitral valve regurgitation Nonrheumatic mitral (valve) prolapse Atypical atrial flutter Prostate cancer Paroxysmal atrial fibrillation Essential (primary) hypertension Obstructive sleep apnea Hypersomnia, unspecified Depression Dyslipidemia Surgical History H/O transurethral destruction of bladder lesion (10/2013) History of cardioversion (04/06/24) History of left heart catheterization (06/23/08) Macular hole repair Hx of cataract surgery Retinal detachment (more content not included)... [facility] 07-15-2024 [facility] Telephone (AGCARDPOB ) -- RYLEY MCKEON ([id number]) 1945 M Date Time Provider Department 07/15/24 TREY GUZMAN During your visit today, we recorded the following information about you: Allergies As of Date: 07/15/2024 Noted Allergy Reaction HYDROCODONE 02/11/2018 11 - Vomiting OXYCODONE 02/11/2018 11 - Vomiting PERCOCET (OXYCODONE-ACETAMINOPHEN)0 05/01/2017 8 - GI Upset Date Reviewed: 07/13/2024 Reviewed by: Sarah Beth Fuentes LPN - Fully Assessed Prescriptions as of 07/20/2024 - iv contrast (will be provided with radiology test) CT Urogram WO/W Inject, intravenously, once for 1 dose.No IV access, insert saline lock prior to the beginning of sedation, infusion, injection of imaging exam. Discontinue saline lock post exam. If Pt. has a central line or IVAD, may access for administration according to line specific nursing protocol. Once exam is complete flush line and de-access according to line specific nursing protocol in the CT contrast administration guidelines link. - LORazepam (ATIVAN) 0.5 mg Take 0.25 mg by mouth once daily as needed. - metoprolol tartrate, short acting, (LOPRESSOR) 25 mg tablet Take 25 mg by mouth two times a day. Morning and night - buPROPion XL (WELLBUTRIN XL) 300 mg 24 hr tablet Take 1 tablet by mouth once daily. - XARELTO 20 mg tablet Take 20 mg by mouth once daily. - coenzyme Q10 (COENZYME Q-10) 100 mg cap capsule Take 100 mg by mouth twice daily. - ZINC ACETATE ORAL Take by mouth. - triamcinolone acetonide (NASACORT NASAL) Use in the nose once daily. - atorvastatin (LIPITOR) 40 mg tablet Take 40 mg by mouth once daily. - losartan (COZAAR) 25 mg tablet Take 50 mg by mouth once daily. - BIOTIN ORAL Take 5,000 mcg by mouth once daily. - MULTIVITAMIN TAB Take one(1) tablet by mouth daily. 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.* At risk for stroke [Z91.89] Persistent atrial fibrillation (HCC) [I48.19] Bradycardia [R00.1] Sinus bradycardia [R00.1] 06/13/2021 Premature ventricular contractions (PVCs) (VPCs* Atrial flutter (HCC) [I48.92] Sinus node dysfunction (HCC) [I49.5] Malignant neoplasm of prostate (HCC) [C61] 03/16/2021 Anxiety and depression [F41.9, F32.A] 06/13/2021 LISSETTE (obstructive sleep apnea) [G47.33] 06/13/2021 CAD (coronary artery disease) [I25.10] 06/13/2021 Essential (primary) hypertension [I10] 06/13/2021 Dyslipidemia [E78.5] 06/13/2021 Tricuspid insufficiency [I07.1] 06/13/2021 Systolic dysfunction [I51.9] 06/13/2021 Mitral valve prolapse [I34.1] 08/07/2010 Myxomatous mitral valve regurgitation [I34.0] 05/14/2024 Gross hematuria [R31.0] 05/16/2024 At risk for bleeding associated with anticoagul*05/16/2024 Encounter Status:Closed by SEAMUS GOLDMAN [facility] Office Visit (INTMWS ) -- RYLEY MCKEON ([id number]) 1945 M Date Time Provider Department 07/13/24 10:00 AM JOHNNIE ROSS INTMRAJAN During your visit today, we recorded the following information about you: Pulse Respiration Blood pressure Weight 44/minute 12/minute 120/80 67.4 kg Johnnie Ross MD 07/13/2024 1:05 PM Signed This note was created using [employer]. Subjective Ryley Mckeon is a 79 year old male. Ryley is a 79-year-old male with a history of non-valvular atrial fibrillation and recurrent hematuria, presenting for evaluation and management of atrial fibrillation and associated complications. Ryley reports a history of non-valvular atrial fibrillation and recurrent hematuria, which has been evaluated by urology. He is currently on Xarelto, which has been associated with easy bruising. He is scheduled for a CTA at 1330 today and is considering a Watchman device placement. He has discussed the risks and benefits of the procedure with his group work program aide and urologist and is seeking support for his decision. Ryley also reports a slow heart rate, which he attributes to his beta-michell medication. He has been informed by his group work program aide in [facility] (Dr. Nelson) that a pacemaker may be necessary if his heart rate continues to be slow after cardioversion. He denies any symptoms of shortness of breath or chest pain. Additionally, Ryley has a left inguinal hernia that is not causing any pain. He has been evaluated by a surgeon, who recommended surgery, but Ryley has not yet scheduled the procedure. He is prioritizing his cardiac issues first. Patient presents with: Pre-Op Exam: For procedures approval of pcp HISTORY Ryley is a 79-year-old male with a history of non-valvular atrial fibrillation and recurrent hematuria, presenting for evaluation and management of atrial fibrillation and associated complications. Ryley reports a history of non-valvular atrial fibrillation and recurrent hematuria, which has been evaluated by urology. He is currently on Xarelto, which has been associated with easy bruising. He is scheduled for a CTA at 1330 today and is considering a Watchman device placement. He has discussed the risks and benefits of the procedure with his group work program aide and urologist and is seeking support for his decision. Ryley also reports a slow heart rate, which he attributes to his beta-michell medication. He has been informed by his group work program aide in [facility] (Dr. Nelson) that a pacemaker may be necessary if his heart rate continues to be slow after cardioversion. He denies any symptoms of shortness of breath or chest pain. Additionally, Ryley has a left inguinal hernia that is not causing any pain. He has been evaluated by a surgeon, who recommended surgery, but Ryley has not yet scheduled the procedure. He is prioritizing his cardiac issues first. 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 Langston ([facility]) in 2008, considered to be benign PVCs; improved with beta-michell but developed fatigue, then treated with verapamil Prostate cancer (HCC) followed by Dr. Thomas Retinal detachment, left 01/2016 Sinus bradycardia Sinus node dysfunction (HCC) probably in part due to recurrent atrial arrhythmias Unspecified constipation PAST SURGICAL HISTORY Procedure Laterality Date CARDIAC CATH 06/23/2008 reportedly minimal CAD CARDIAC CATH 06/23/2008 LVEF 55%; LAD 10% prox, D1 20-30% ostial, LCX normal, RCA 10-20% prox, right AV branch 10-20%, right PL branch 10-20% CARDIAC STRESS TEST 06/16/2008 no stress-induced myocardial ischemia CARDIOVERSION, ELECTIVE, ELECTRICAL 04/24/2017 CARDIOVERSION, ELECTIVE, ELECTRICAL 04/30/2017 CATARACT EXTRACTION HX Left 10/2016 CATARACT EXTRACTION HX Right 11/2016 COLONOSCOPY FLX DX W/COLLJ SPEC WHEN PFRMD 08/28/2005 Colonoscop (more content not included)... Normal [facility] CREATININE, POC (AK,MR)on Creatinine [Mass/Vol] 0.9 mg/dL 0.6 - 1.3 mg/dL [facility] eGFR (POCT) mL/min/1.73 m2 [facility] Meter ID:[id number] Location:[facility], [address], [place], [address] Adults (18+): eGFR is calculated using the 2020 CKD-EPI Creatinine Equation. Pediatric patients (<18): eGFR should be clinically calculated using the 2020 Lowery Equation. The National Kid[employer] Foundation provides online calculators. [facility] POINT OF CARE [facility] CTA CHEST (GATED) WO/W IVCON on 07-13-2024 CTA CHEST (GATED) WO/W IVCON * * *Final Report* * * DATE OF EXAM: Jul 13 2024 1:38PM [facility] 0126 - CTA CHEST (GATED) WO/W IVCON / PROCEDURE REASON: multiple diagnoses * * * * Physician Interpretation * * * * Examination: CTA of the chest dated 07/13/2024 1:38 PM Comparison: None History: 79 years old Male with history of atrial fibrillation. There is a concern for pulmonary venous anatomy. Technique: Multi-detector CT technology was employed (Siemens Definition Flash dual source scannerSiemens SOMATOM Definition +Siemens Somatom Force dual source scanner). Spiral imaging with retrospective Axial, sequential imaging with prospective gating was performed of the chest following the IV administration of contrast material. A low-osmolar contrast agent was used (100 cc of Omnipaque 350). CT Dose-Length Product (DLP): [address] Dose Reduction Employed: Automated exposure control (AEC) For optimization of anatomic evaluation, multiplanar reconstruction, maximum intensity projections, and advanced 3-D off-line postprocessing were performed on a dedicated stand-alone workstation under the direct supervision of the interpreting physician. RESULT: Potential study limitations: None. There is a well-healed sternotomy. The visualized portions rest of the chest wall, mediastinum and pulmonary arteries are within normal limits. No abnormal adenopathy is identified in mediastinum and son. Lung windows: There is no pulmonary parenchymal mass, infiltrate, or pleural effusion in the areas visualized on the study. The cardiac chamber sizes are notable for severe left atrial enlargement. The left atrial appendage orifice measures 2.0 x 1.8 cm with an area of 2.59 cm2 at the level of the left circumflex; length = 1.4 cm. The left atrial appendage has a prominent U shaped chicken wing which arches anteriorly at first, and then turns posteriorly. VASCULAR WITH ADVANCED 3-D OFF-LINE POSTPROCESSING: The left atrium and atrial appendage show no evidence of thrombus. The left atrium receives 4 widely patent pulmonary veins without stenosis or other abnormality. The right middle vein is a branch of the right superior pulmonary vein. The coronary sinus drains into the right atrium normally and is widely patent. The aortic valve is trileaflet, and free from calcifications. The visualized portions of the ascending and descending thoracic aorta are of normal size. The aortic arch is not included in this study. There is no acute aortic pathology, such as dissection, intramural hematoma, or contained rupture. The coronary arteries have normal origins and courses. There are moderate coronary calcifications, though this study was not optimized for coronary artery evaluation. Mild mitral annular calcification is seen both anteriorly and posteriorly. UPPER ABDOMEN: The limited images of the upper abdomen are unremarkable. BONES: Normal IMPRESSION: 1. Normal pulmonary venous anatomy without pulmonary vein stenosis. 2. No left atrial or left atrial appendage thrombus. 3. The left atrial appendage orifice measures 2.0 x 1.8 cm with an area of 2.59 cm2 at the level of the left circumflex; length = 1.4 cm. The left atrial appendage has a prominent U shaped chicken wing which arches anteriorly at first, and then turns posteriorly. 4. Mild mitral annular calcification is seen anteriorly and posteriorly. 5. There are no significant nonvascular abnormalities identified on the study. The cardiac portion of the study was interpreted by Dr. Viridiana Llanes from the Cardiology Department, and the noncardiac portion was interpreted by Dr. Cyril Solis from [employer] Operator: [facility] Transcribe Date/Time: Jul 13 2024 2:34P Dictated by : CYRIL SOLIS MD This examination was interpreted and the report reviewed and electronically signed by: CYRIL SOLIS MD on Jul 14 2024 7:53AM EST [id number] Normal [facility] CNPKarla 06-16-2024 CNPN Telephone (AGCARDPOB ) -- RYLEY MCKEON ([id number]) 1945 M Date Time Provider Department 06/16/24 TREY GUZMAN AGCARDPOB During your visit today, we recorded the following information about you: Clarita Mondragon RN 06/16/2024 3:11 PM Signed 06/16/24 letter from [facility] scanned into [employer] for your review. Clarita Mondragon RN Allergies As of Date: 06/16/2024 Noted Allergy Reaction HYDROCODONE 02/11/2018 11 - Vomiting OXYCODONE 02/11/2018 11 - Vomiting PERCOCET (OXYCODONE-ACETAMINOPHEN)0 05/01/2017 8 - GI Upset Date Reviewed: 06/06/2024 Reviewed by: Trey Guzman MD - Fully Assessed Reason for Visit: Cardiac Clearance [4105] Prescriptions as of 07/08/2024 - iv contrast (will be provided with radiology test) CT Urogram WO/W Inject, intravenously, once for 1 dose.No IV access, insert saline lock prior to the beginning of sedation, infusion, injection of imaging exam. Discontinue saline lock post exam. If Pt. has a central line or IVAD, may access for administration according to line specific nursing protocol. Once exam is complete flush line and de-access according to line specific nursing protocol in the CT contrast administration guidelines link. - LORazepam (ATIVAN) 0.5 mg Take 0.25 mg by mouth once daily as needed. - metoprolol tartrate, short acting, (LOPRESSOR) 25 mg tablet Take 12.5 mg by mouth two times a day. - buPROPion XL (WELLBUTRIN XL) 300 mg 24 hr tablet Take 1 tablet by mouth once daily. - XARELTO 20 mg tablet Take 20 mg by mouth once daily. - coenzyme Q10 (COENZYME Q-10) 100 mg cap capsule Take 100 mg by mouth twice daily. - ZINC ACETATE ORAL Take by mouth. - triamcinolone acetonide (NASACORT NASAL) Use in the nose once daily. - atorvastatin (LIPITOR) 40 mg tablet Take 40 mg by mouth once daily. - losartan (COZAAR) 25 mg tablet Take 50 mg by mouth once daily. - BIOTIN ORAL Take 5,000 mcg by mouth once daily. - MULTIVITAMIN TAB Take one(1) tablet by mouth daily. 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.* At risk for stroke [Z91.89] Persistent atrial fibrillation (HCC) [I48.19] Bradycardia [R00.1] Sinus bradycardia [R00.1] 06/13/2021 Premature ventricular contractions (PVCs) (VPCs* Atrial flutter (HCC) [I48.92] Sinus node dysfunction (HCC) [I49.5] Malignant neoplasm of prostate (HCC) [C61] 03/16/2021 Anxiety and depression [F41.9, F32.A] 06/13/2021 LISSETTE (obstructive sleep apnea) [G47.33] 06/13/2021 CAD (coronary artery disease) [I25.10] 06/13/2021 Essential (primary) hypertension [I10] 06/13/2021 Dyslipidemia [E78.5] 06/13/2021 Tricuspid insufficiency [I07.1] 06/13/2021 Systolic dysfunction [I51.9] 06/13/2021 Mitral valve prolapse [I34.1] 08/07/2010 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 Nelson , spoke to Christina Ross RN, she will have a surgery clearance form faxed to the office per patient request. Grisel Tang LPN June 16, 2024 8:56 AM Trey Guzman MD 06/16/2024 12:39 PM Signed [facility] General Electrophysiology (EP) I'm confused. 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 Trey Guzman MD June 16, 2024 12:39 PM Grisel Tang LPN 06/16/2024 12:54 PM Signed Yes, ( I had the same confusion ) patient requested Dr. Nelson get a clearance from you because he was told to he needs to stop his Xarelto . Grisel Tang LPN June 16, 2024 12:51 PM Trey Guzman MD 06/16/2024 12:57 PM Signed [facility] General Electrophysiology (EP) Dr. Nelson is completely qualified to make that determination. Trey Guzman MD June 16, 2024 12:57 PM Grisel Tang LPN 06/16/2024 1:39 PM Signed Spoke with Ryley Mckeon and informed them of Dr. Guzman response to medications and recommendations. Patient voiced understanding . Spoke Christina WARNER from Dr. Nelson office and informed her of Dr. Winslow recommendations. She voiced understanding. Grisel Tang LPN June 16, 2024 1:36 PM Allergies As of Date: 06/16/2024 Noted Allergy Reaction HYDROCODONE 02/11/2018 11 - Vomiting OXYCODONE 02/11/2018 11 - Vomiting PERCOCET (OXYCODONE-ACETAMINOPHEN)0 05/01/2017 8 - GI Upset Date Reviewed: 06/06/2024 Reviewed by: Trey Guzman MD - Fully Assessed Prescriptions as of 06/16/2024 - iv contrast (will be provided with radiology test) CT Urogram WO/W Inject, intravenously, once for 1 dose.No IV access, insert saline lock prior to the beginning of sedation, infusion, injection of imaging exam. Discontinue saline lock post exam. If Pt. has a central line or IVAD, may access for administration according to line specific nursing protocol. Once exam is complete flush line and de-access according to line specific nursing protocol in the CT contrast administration guidelines link. - LORazepam (ATIVAN) 0.5 mg Take 0.25 mg by mouth once daily as needed. - metoprolol tartrate, short acting, (LOPRESSOR) 25 mg tablet Take 12.5 mg by mouth two times a day. - buPROPion XL (WELLBUTRIN XL) 300 mg 24 hr tablet Take 1 tablet by mouth once daily. - XARELTO 20 mg tablet Take 20 mg by mouth once daily. - coenzyme Q10 (COENZYME Q-10) 100 mg cap capsule Take 100 mg by mouth twice daily. - ZINC ACETATE ORAL Take by mouth. - triamcinolone acetonide (NASACORT NASAL) Use in the nose once daily. - atorvastatin (LIPITOR) 40 mg tablet Take 40 mg by mouth once daily. - losartan (COZAAR) 25 mg tablet Take 50 mg by mouth once daily. - BIOTIN ORAL Take 5,000 mcg by mouth once daily. - MULTIVITAMIN TAB Take one(1) tablet by mouth daily. 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.* At risk for stroke [Z91.89] Persistent atrial fibrillation (HCC) [I48.19] Bradycardia [R00.1] Sinus bradycardia [R00.1] 06/13/2021 Premature ventricular contractions (PVCs) (VPCs* Atrial flutter (HCC) [I48.92] Sinus node dysfunction (HCC) [I49.5] Malignant neoplasm of prostate (HCC) [C61] 03/16/2021 Anxiety and depression [F41.9, F32.A] 06/13/2021 LISSETTE (obstructive sleep apnea) [G47.33] 06/13/2021 CAD (coronary artery disease) [I25.10] 06/13/2021 Essential (primary) hypertension [I10] 06/13/2021 Dyslipidemia [E78.5] 06/13/2021 Tricuspid insufficiency [I07.1] 06/13/2021 Systolic dysfunction [I51.9] 06/13/2021 Mitral valve prolapse [I34.1] 08/07/2010 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 I did let him know that the front office secretary will call once she get the date to schedule. Thanks Shanna Hollins Allergies As of Date: 06/11/2024 Noted Allergy Reaction HYDROCODONE 02/11/2018 11 - Vomiting OXYCODONE 02/11/2018 11 - Vomiting PERCOCET (OXYCODONE-ACETAMINOPHEN)0 05/01/2017 8 - GI Upset Date Reviewed: 06/06/2024 Reviewed by: Trey Guzman MD - Fully Assessed Prescriptions as of 06/11/2024 - iv contrast (will be provided with radiology test) CT Urogram WO/W Inject, intravenously, once for 1 dose.No IV access, insert saline lock prior to the beginning of sedation, infusion, injection of imaging exam. Discontinue saline lock post exam. If Pt. has a central line or IVAD, may access for administration according to line specific nursing protocol. Once exam is complete flush line and de-access according to line specific nursing protocol in the CT contrast administration guidelines link. - LORazepam (ATIVAN) 0.5 mg Take 0.25 mg by mouth once daily as needed. - metoprolol tartrate, short acting, (LOPRESSOR) 25 mg tablet Take 12.5 mg by mouth two times a day. - buPROPion XL (WELLBUTRIN XL) 300 mg 24 hr tablet Take 1 tablet by mouth once daily. - XARELTO 20 mg tablet Take 20 mg by mouth once daily. - coenzyme Q10 (COENZYME Q-10) 100 mg cap capsule Take 100 mg by mouth twice daily. - ZINC ACETATE ORAL Take by mouth. - triamcinolone acetonide (NASACORT NASAL) Use in the nose once daily. - atorvastatin (LIPITOR) 40 mg tablet Take 40 mg by mouth once daily. - losartan (COZAAR) 25 mg tablet Take 50 mg by mouth once daily. - BIOTIN ORAL Take 5,000 mcg by mouth once daily. - MULTIVITAMIN TAB Take one(1) tablet by mouth daily. Facility-Administered Medications as of 06/11/2024 - lidocaine urojet 2 % 10 mL topical gel (GLYDO) Problem List As Of Date 06/11/2024 Noted Resolved S/P mitral valve repair [Z98.890] 08/31/2008 Palpitations [R00.2] 05/28/2017 06/13/2021 MVP (mitral valve prolapse) [I34.1] 05/28/2017 detention (current) use of anticoagulants [Z79.* At risk for stroke [Z91.89] Persistent atrial fibrillation (HCC) [I48.19] Bradycardia [R00.1] Sinus bradycardia [R00.1] 06/13/2021 Premature ventricular contractions (PVCs) (VPCs* Atrial flutter (HCC) [I48.92] Sinus node dysfunction (HCC) [I49.5] Malignant neoplasm of prostate (HCC) [C61] 03/16/2021 Anxiety and depression [F41.9, F32.A] 06/13/2021 LISSETTE (obstructive sleep apnea) [G47.33] 06/13/2021 CAD (coronary artery disease) [I25.10] 06/13/2021 Essential (primary) hypertension [I10] 06/13/2021 Dyslipidemia [E78.5] 06/13/2021 Tricuspid insufficiency [I07.1] 06/13/2021 Systolic dysfunction [I51.9] 06/13/2021 Mitral valve prolapse [I34.1] 08/07/2010 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 Personnel directly involved with the procedure wore the appropriate PPE (Personal Protective Equipment). No special equipment needed. Patient/Surrogate Stated/Verified: PATIENT VERIFIED(optional for EMERGENT procedures): Patient name, Date of , Relevant allergies, and The intended procedure Time Out Communication: Intended patient and procedure match the source documents. Consent documented and matches the intended procedure. Relevant labs, photos, and/or imaging studies have been reviewed. Correct side/site marked and visible. Medications required for procedure verified. Fire risk assessed and interventions discussed. No implant(s) inserted. Sign Out: SIGN OUT (optional for EMERGENT procedures): All specimen containers correctly labeled. All instruments, equipment, possible retained foreign bodies accounted for. Post-procedure follow-up management communicated and Plan of Care Visit completed when applicable. Aj Simon RN Patient ID with (2) Identifiers, Verified by: Aj Simon RN Actual procedure/procedure scheduled: CystoscopyYes Performing provider/scheduled provider: Yes Patient was roomed in: Q9- Roofer Vinyl Coating offered:Patient declines Patient arrived in the room at: 1037 Patient ready for procedure: 1048 The procedure started at ( Time Only): 1053 The procedure ended at: 1055 Was the procedure delayed: No ProNox Utilized: No The patient left the procedure room at: 1103 Aj Simon RN PRE PROCEDURE ASSESSMENT- Cysto Latex Allergy: No Allergies reviewed and updated. Yes Pre-Procedure Vital Signs: BP: 171/79 Pulse: 48 Heart valve replacement: No Joint replacement: No Back Office UA otained: no PROCEDURE PREP-Cysto Patient Prep: Betadine Placement of Sterile Drape: COMPLETED Anesthetic Given:10 cc 2% Lidocaine jelly Aj Simon RN POST PROCEDURE NURSE ASSESSMENT Present along with physician during procedure exam. Aj Simon RN Current pain intensity is 0 on a 0-10 pain scale. 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, overall in good health Voids well, has some rectal discomfort Good erections Reg turp, has defect on MRI but not very impressive Plan: Probably needs to consider intervention He is interested in focal Rx, I will review this with Ki Jasso Other options include RT options All options were reviewed including surgery, RT options, and Regarding surgery: reasonable candidate but 75 and on AC, so probably best with other Rx Regarding RT option: good candidate for seeds, EBRT, or SBRT and we discussed this as well Regarding : given progression of stage and increase of PSA, prob should move towards active Rx Focal therapy may also be an option and we will explore this first Top consider focal therapy may need a systematic biopsy to ensure no disease anywhere else Per [place], good candidate but would need random bx to prove not in other areas too I called pt and now really considering seeds, will see [facility] idea of focal Rx he is not so interested in this now Status post I-125 seed implantation on 06/15/2021. (more content not included)... Normal [facility] Casey 05-28-2024 BERNARDO Telephone (AGCMOI ) -- RYLEY MCKEON ([id number]) 1945 M Date Time Provider Department 05/28/24 TREY GUZMAN During your visit today, we recorded the following information about you: Clarita Mondragon, TIMMY 05/28/2024 11:45 AM Signed Pt wishes you notified he had a flex cystoscopy today with Dr Lin. Report is under Notes/Trans. TIMMY Draper Renee, LPN 06/04/2024 11:04 AM Signed Ryley Mckeon has been seen by Urology would like to go forward with ablation and Watchman that was discussed on 05/15/24. Grisel Tang LPN June 04, 2024 11:04 AM Trey Guzman MD 06/06/2024 4:11 PM Signed [facility] General Electrophysiology (EP) Reviewed. If Mr. Mckeon is cleared to safely take oral anticoagulation therapy for at least short term, we can proceed with atrial fibrillation catheter ablation with concomitant Watchman device implant. We should get documentation of rationale for Watchman from PCP or urologist outlining the reason that jail oral anticoagulation therapy is considered to have unfavorable risk:benefit (for example, hematuria). Procedure request submitted. CTA ordered. Trey Guzman MD June 06, 2024 4:06 PM Deedee Valiente LPN 06/12/2024 11:37 AM Signed Spoke to Mr. Mckeon's spouse about waiting on rationale from Dr. Ross or urologist reasoning at this time to move forward with ablation/ watchman procedures. Patient's spouse voiced understanding at this time. RADHA Marshall Liza D, MD 06/13/2024 10:53 AM Signed Awaiting response from Jazmin regarding whether I need to do a F2F appointment with patient to document shared decision making. I did pend the letter with the dot phrase Dr. Guzman said to use for documentation of shared decision making. Not sure what tool is being referred to, but there is documentation that shared decision making was done with the patient and urology and cardiology. Will add appointment to schedule ALE if needs to have a formal F2F appointment with me. The letter can be printed if no need for F2F appointment with me Allergies As of Date: 05/28/2024 Noted Allergy Reaction HYDROCODONE 02/11/2018 11 - Vomiting OXYCODONE 02/11/2018 11 - Vomiting PERCOCET (OXYCODONE-ACETAMINOPHEN)0 05/01/2017 8 - GI Upset Date Reviewed: 05/28/2024 Reviewed by: Aj Simon RN - Fully Assessed Reason for Visit: Patient Update [1234] Primary Visit Diagnosis:Persistent atrial fibrillation (HCC) [I48.19] Other Visit Diagnoses:At risk for stroke [Z91.89] At risk for bleeding associated with anticoagulants [Z91.89] Gross hematuria [R31.0] Order(s):CTA CHEST (GATED) WO/W IVCON [[id number]] Order #: [id number] FUTURE SURGICAL REQUEST - ELECTIVE (11/2019) [[id number]] Order #: [id number]: 1 Prescriptions as of 06/13/2024 - iv contrast (will be provided with radiology test) CT Urogram WO/W Inject, intravenously, once for 1 dose.No IV access, insert saline lock prior to the beginning of sedation, infusion, injection of imaging exam. Discontinue saline lock post exam. If Pt. has a central line or IVAD, may access for administration according to line specific nursing protocol. Once exam is complete flush line and de-access according to line specific nursing protocol in the CT contrast administration guidelines link. - LORazepam (ATIVAN) 0.5 mg Take 0.25 mg by mouth once daily as needed. - metoprolol tartrate, short acting, (LOPRESSOR) 25 mg tablet Take 12.5 mg by mouth two times a day. - buPROPion XL (WELLBUTRIN XL) 300 mg 24 hr tablet Take 1 tablet by mouth once daily. - XARELTO 20 mg tablet Take 20 mg by mouth once daily. - coenzyme Q10 (COENZYME Q-10) 100 mg cap capsule Take 100 mg by mouth twice daily. - ZINC ACETATE ORAL Take by mouth. - triamcinolone acetonide (NASACORT NASAL) Use in the nose once daily. - atorvastatin (LIPITOR) 40 mg tablet Take 40 mg by mouth once daily. - losartan (COZAAR) 25 mg tablet Take 50 mg by mouth once daily. - BIOTIN ORAL Take 5,000 mcg by mouth once daily. - MULTIVITAMIN TAB Take one(1) tablet by mouth daily. Facility-Administered Medications as of 06/13/2024 - lidocaine urojet 2 % 10 mL topical gel (GLYDO) Problem List As Of Date 05/28/2024 Noted Resolved S/P mitral valve repair [Z98.890] 08/31/2008 Palpitations [R00.2] 05/28/2017 06/13/2021 MVP (mitral valve prolapse) [I34.1] 05/28/2017 detention (current) use of anticoagulants [Z79.* At risk for stroke [Z91.89] Persistent atrial fibrillation (HCC) [I48.19] Bradycardia [R00.1] Sinus bradycardia [R00.1] 06/13/2021 Premature ventricular contractions (PVCs) (VPCs* Atrial flutter (HCC) [I48.92] Sinus node dysfunction (HCC) [I49.5] Malignant neoplasm of prostate (HCC) [C61] 03/16/2021 Anxiety and depression [F41.9, F32.A] 06/13/2021 LISSETTE (obstructive sl (more content not included)... Normal [facility] CYTOLOGY NON-GYNon CASE REPORT Normal [facility] Comment on above: Order Comment: Speci men Type: URINE SPECIMENOrdering Facility: [facility] Address: [address] [place] [address] Result Comment: [facility] Cytology Report Case: [id number] Authorizing Provider: Kenneth Lin MD Collected: 05/28/2024 11:00 AM Ordering Location: Urology Received: 05/28/2024 04:18 PM Pathologist: Aminah Gonzalez MD Specimen: Urine, Midstream Performed By: #### C YTONON ####[facility] LABCLIA [id number] [place] [address] [place] CLINICAL HISTORY History of bladder cancer Normal [facility] Comment on above: Order Comment: Speci men Type: URINE SPECIMENOrdering Facility: [facility] Address: [address] [place] [address] Performed By: #### C YTONON ####[facility] LABIA [id number] [place] [address] [place] FINAL DIAGNOSIS Normal [facility] Comment on above: Order Comment: Speci men Type: URINE SPECIMENOrdering Facility: [facility] Address: [address] [place] [address] Result Comment: A - Urine, Midstream Negative for high-grade urothelial carcinoma. at 1728 EST Performed By: #### C YTONON ####[facility] LABCLIA [id number] [place] [address] [place] FINAL PERFORMING LAB Normal [facility] Comment on above: Order Comment: Speci men Type: URINE SPECIMENOrdering Facility: [facility] Address: [address] [place] [address] Result Comment: Tech nical component, professional builder screening performed at [facility], [address] [place] [address] CLIA# [id number] Diagnostic interpretation performed at [facility], [address] [place], [place] [id number] CLIA# [id number] Agriculture Sales Account Manager: Mike Seymour M.D. Performed By: #### C YTONON ####[facility] LABCLIA [id number] [place] [address] [place] GROSS DESCRIPTION Normal [facility] Comment on above: Order Comment: Speci men Type: URINE SPECIMENOrdering Facility: [facility] Address: [address] [place] [address] Result Comment: A. U rine, Midstream 80 cc clear yellow fluid . ThinPrep prepared. Performed By: #### C YTONON ####[facility] LABCLIA [id number] [place] [id number] [place] CT UROGRAM WO/W IVCONon 02- CT UROGRAM WO/W IVCON * * *Final Report* * * DATE OF EXAM: May 25 2024 3:58PM [facility] 0560 - CT UROGRAM WO/W IVCON / PROCEDURE REASON: Gross hematuria * * * * Physician Interpretation * * * * EXAMINATION: CT ABDOMEN AND PELVIS WITHOUT AND WITH IV CONTRAST, INCLUDING EXCRETORY PHASE IMAGING (CT UROGRAM) 3D RECONSTRUCTIONS CLINICAL HISTORY: Hematuria. Prostate carcinoma TECHNIQUE: CT urogram protocol including unenhanced, renal parenchymal phase and excretory phase renal imaging was obtained following IV contrast. Normal saline was also administered IV. No oral contrast was given. 3D image post-processing was performed and archived at the request of the referring physician, on the CT scanner workstation without concurrent physician supervision. MQ: CTU_2 Contrast: IV: 100 ml of Omnipaque 350 IV Saline: 100 ml of 0.9% NACL Solution Oral Contrast: None CT Radiation dose: Integrated dose-length product (DLP) for this visit = 1425 mGy*cm. CT Dose Reduction Employed: Automated exposure control(AEC) and iterative recon COMPARISON: None. RESULT: Kidneys and urinary tract: Right: There are no renal calculi or masses. The opacified calices, renal pelvis and ureter are normal without dilation, filling defect, or stricture. Left: There are no renal calculi or masses. The opacified calices, renal pelvis and ureter are normal without dilation, filling defect, or stricture. Bladder: Mild diffuse bladder wall trabeculation No filling defect, calculus, or focal wall thickening. Brachi therapy seeds in the prostate Abdomen and Pelvis: Liver: Hepatic cyst. No suspicious mass. Biliary: The gallbladder is collapsed. No significant biliary dilatation. Spleen: No mass. No splenomegaly. Pancreas: No mass or duct dilation. Adrenals: Mild adrenal thickening left greater than right. Likely related to hyperplasia. GI tract: The stomach is distended and debris-filled. No additional bowel dilation or wall thickening. The appendix appears normal. Diverticulosis without evidence of diverticulitis. Incidental duodenal diverticulum Lymph nodes: No abdominal or pelvic lymphadenopathy. Mesentery/Peritoneum: No ascites or mass. Retroperitoneum: No mass. Vasculature: - Abdominal aorta and iliac arteries: Atherosclerotic calcifications without aneurysm. - Celiac and SMA: Atherosclerotic calcifications at the origins. - Portal venous system (SMV, splenic vein, portal vein and branches): Patent. - Hepatic veins: Incompletely opacified, likely due to early phase of enhancement. Pelvis: No mass, ascites or fluid collection. Bones and Soft Tissues: Left inguinal hernia containing small bowel loops, without evidence of obstruction. Coronal image 43 series 9. Degenerative changes throughout the spine. Scoliosis Lower thorax: Unremarkable. Localizer images: No additional findings. IMPRESSION: Brachi therapy seeds in the prostate Mild diffuse bladder wall trabeculation No nephrolithiasis, ureterolithiasis, gross obstructive uropathy, or suspicious renal lesion. Left inguinal hernia containing small bowel loops, without evidence of obstruction The stomach is distended and debris-filled Welcome Wagon Host/Hostess: PSCB Transcribe Date/Time: May 27 2024 9:43A Dictated by : CURT COY MD This examination was interpreted and the report reviewed and electronically signed by: CURT COY MD on May 27 2024 9:59AM EST [id number] Normal [facility] CNOVon 05-15-2024 CNOV Office Visit (CARDAG HWW) -- RYLEY MCKEON ([id number]) 1945 M Date Time Provider Department 05/15/24 10:20 AM TREY GUZMAN CARDAGHWW During your visit today, we recorded the following information about you: Pulse Blood pressure Weight 41/minute 125/71 68.1 kg Trey Guzman MD 05/16/2024 4:18 PM Signed PRIMARY CARE PHYSICIAN: Johnnie Ross [address] [place] [address] Patient Care Team: Johnnie Ross MD as PCP - General (Internal Medicine) Trey Guzman MD as Specialty Warper Tender (Cardiology) Rocky Nelson MD as Specialty Warper Tender (Cardiology) Cecil Thomas MD as Specialty Warper Tender (Urology) Josefa Rolle APRN.OPERATOR TECHNICIAN as Wireless Consultant (Internal Medicine) Evangelina Bah APRN.HOME HEALTH CLINICIAN as Wireless Consultant (Internal Medicine) Kenneth Lin MD as Specialty Warper Tender (Urology) CHIEF COMPLAINT: Follow-up for arrhythmia HISTORY OF PRESENT ILLNESS: Mr. Mckeon is a 79 year old male who presents today for a cardiovascular medicine follow-up visit. History copied from previous notes, edited as needed: Summary of previous notes: Mr. Mckeon has a history of mitral valve disease with mitral regurgitation. He underwent mitral valve repair by Dr. Winters at the [facility] in 2000. He was feeling poorly in late March 2017 or early April 2017, with primarily fatigue. He presented to his PCP in mid April 2017 and an EKG revealed atrial fibrillation or atrial flutter with rapid ventricular response rates. He was admitted to [facility] and treated with IV heparin and IV amiodarone. He was evaluated by a group work program aide, Dr. Borges. He underwent YURIDIA-guided DC cardioversion. The atrial fibrillation recurred and within a week he underwent a second cardioversion procedure. He states medical treatments were challenging due to bradycardia. He was referred to [facility] EP and evaluated by my partner, Dr. Daly, who determined that catheter ablation might be the best approach given the pros and cons of medical therapy, with substantial challenge due to the sinus bradycardia without a cardiac pacemaker. My impression was that Mr. Mckeon has recurrent symptomatic atrial arrhythmias including atrial fibrillation and atypical appearing atrial flutter. These arrhythmias have been associated with excessively bothersome symptoms. The rapid ventricular response rates with tachycardia have been challenging to effectively treat due to substantial sinus bradycardia. Multiple rate controlling and antiarrhythmic medications are therefore not able to be prescribed due to the bradycardia. He has been appropriately treated with oral anticoagulation for stroke prevention, on apixaban (Eliquis), with [id number] = 2. He inquired as to whether he would need to be treated with oral anticoagulation forever, or whether he could stop such treatment at some point in the future particularly if he underwent successful catheter ablation. I told him that the decision regarding oral anticoagulation is made based upon risk factors and not based upon perceived atrial arrhythmia frequency or burden. Therefore, with the risk of stroke being present I would recommend that he treated with oral anticoagulation indefinitely. I did mention to him that one alternative that might be offered very soon at [facility] would be the [employer] Watchman left atrial occlusion device. Otherwise, he should remain on the Eliquis or other form of oral anticoagulation indefinitely. Regarding the atrial arrhythmias, which includes atrial fibrillation and atrial flutter, as stated above the medical management has been very challenging and, located by the presence of substantial sinus bradycardia. Therefore, if he is having excessively bothersome symptoms from the tachyarrhythmias, he would be an appropriate and good candidate for catheter ablation. As Dr. Daly mentioned in his notes, the catheter ablation would primarily target atrial fibrillation but might also target atypical and/or typical atrial flutter. I had a detailed discussion with Mr. Mckeon and his regarding my evaluation and recommendations. I do believe that he is an appropriate and good candidate for catheter ablation. His mentioned that he has been feeling reasonably well recently, and inquired whether the catheter ablation is necessary or urgent. I told them that the catheter ablation procedure is not urgent and would only be necessary for control of excessively bothersome symptoms. I reminded them however that should he develop recurrent episodes the treatment for control of the tachycardia would be challenging due to the baseline sinus bradycardia. This substantially limits the prophylactic or preventative treatment of the atrial fibrillation and exposes him to t (more content not included)... Normal [facility] ECG B/O W INTERP (MED OFFICE )on 05-15-2024 Interpretation and review of laboratory results Abnormal [facility] Sinus or ectopic atr ial bradycardia 42 bpm; first-degree AV block (MA 240 ms); normal QRS duration 100 ms; QTc 409 ms; criteria for anterior or anteroseptal infarct, similar to previous EKG [facility] CREATININE BLDon 05-05-2024 Creatinine [Mass/Vol] 0.78 mg/dL Normal 0.73-1.22 [facility] Comment on above: Order Comment: Walt khan Type: BLOOD SPECIMENOrdering Facility: [facility] Address: [address] [place] [address] Performed By: #### C RET1 ####[facility] [id number] [place] [address] [place] Creatinine and Glomerular filtration rate.predicted panel (S/P/Bld) 92 mL/min/1.73m??? Normal >=60 [facility] Comment on above: Order Comment: Walt khan Type: BLOOD SPECIMENOrdering Facility: [facility] Address: [address] [place] [address] Result Comment: Denisse mated Glomerular Filtration Rate (eGFR) is calculated using the 2020 CKD-EPI creatinine equation. This equation utilizes serum creatinine, sex, and age as parameters. The creatinine assay has traceable calibration to isotope dilution-mass spectrometry. Refer to KDIGO guidelines for clinical interpretation. In patients with unstable renal function, e.g. those with acute kidney injury, the eGFR may not accurately reflect actual GFR. Performed By: #### C RET1 ####[facility] [id number] [address] CNPNon 05-04-2024 CNPN Telephone (GLQ) -- MIKERYLEY Marcela ([id number]) 1945 Date Time Provider Department 05/04/24 RUTH BREWER GLQ During your visit today, we recorded the following information about you: Ruth Brewer RN 05/04/2024 3:49 PM Signed Returned call to Mr. Mckeon. Notified him that a cysto and CTU are ordered for him and he will be contacted to get those scheduled. He states that he has a hard time with scopes and could he have a sedative. 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 Patient verbalized understanding. All questions answered. Ruth Brewer RN, BSN Triage Nurse Department of Urology [facility] Allergies As of Date: 05/04/2024 Noted Allergy Reaction HYDROCODONE 02/11/2018 11 - Vomiting OXYCODONE 02/11/2018 11 - Vomiting PERCOCET (OXYCODONE-ACETAMINOPHEN)0 05/01/2017 8 - GI Upset Date Reviewed: 04/02/2024 Reviewed by: Sarah Beth Fuentes LPN - Fully Assessed Reason for Visit: Returning Patient's Call [[id number]] Prescriptions as of 05/04/2024 - iv contrast (will be provided with radiology test) CT Urogram WO/W Inject, intravenously, once for 1 dose.No IV access, insert saline lock prior to the beginning of sedation, infusion, injection of imaging exam. Discontinue saline lock post exam. If Pt. has a central line or IVAD, may access for administration according to line specific nursing protocol. Once exam is complete flush line and de-access according to line specific nursing protocol in the CT contrast administration guidelines link. - 0.9 % sodium chloride (NACL 0.9%) infusion Administer at rate defined per CT contrast administration specifications. To be provided with radiology test. - LORazepam (ATIVAN) 0.5 mg Take 0.25 mg by mouth once daily as needed. - metoprolol tartrate, short acting, (LOPRESSOR) 25 mg tablet Take 25 mg by mouth two times a day. - benzonatate (TESSALON PERLE) 100 mg capsule Take 1 capsule by mouth three times a day as needed for cough. - buPROPion XL (WELLBUTRIN XL) 300 mg 24 hr tablet Take 1 tablet by mouth once daily. - XARELTO 20 mg tablet - Tadalafil (CIALIS) 20 mg tablet Take 1 tablet by mouth as needed. Take 1-2 hours before sexual activity. - apixaban (ELIQUIS) 5 mg tab(s) Take 1 tablet by mouth two times a day. - coenzyme Q10 (COENZYME Q-10) 100 mg cap capsule Take 100 mg by mouth twice daily. - ZINC ACETATE ORAL Take by mouth. - triamcinolone acetonide (NASACORT NASAL) Use in the nose once daily. - atorvastatin (LIPITOR) 40 mg tablet Take 40 mg by mouth once daily. - losartan (COZAAR) 25 mg tablet Take 50 mg by mouth once daily. - BIOTIN ORAL Take 5,000 mcg by mouth once daily. - MULTIVITAMIN TAB Take one(1) tablet by mouth daily. 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9] 06/13/2021 Encounter Status:Closed by RUTH BREWER on 05/04/24 Normal [facility] Prostate specific Ag [Mass/Vol] 0.18 ng/mL Normal <2.60 [facility] Comment on above: Order Comment: Speci men Type: BLOOD SPECIMENOrdering Facility: [facility] Address: [address] [place] [address] Result Comment: Thomas victoria PSA test methodology used is the Electrochemiluminescence Immunoassay by [employer]. Total PSA values by differing methodologies cannot be interchanged. Performed By: #### 2 857-1 ####[facility] LABCLIA [id number] [place] [address] [place] 12 Lead [place] [facility] [place]-17-[place] 12 [place] [address] 12 Lead EKG [place] [facility] [place] 04/17/24 0936 MR#: [id number] Acct: [id number] Name: RYLEY MCKEON Marcela Rep #: [id number] : 1945 78 From: Jackson Logan NETWORK ADMIN NETWORK ADMIN-C Attending Dr: ELLIE FloodC Status: DEP AMB Ordering Dr: Jackson Logan NP, NP-C Date: 04/17/24 Location: [facility] Sex: M C [place] [facility] [place] [facility] [place] ECG Report Interpretation Atrial flutter-fibrillation -Old anteroseptal infarct. - Nonspecific T-abnormality. ABNORMAL Electronically signed on 04/22/2024 at 08:44 by Rocky Nelsonwood Software Version [id number] 04/22/24 0846 Date Jackson Logan NP, NP-C CC: Dr. Johnnie Ross MD Date Dictated: 04/17/24935 Date Transcribed: 04/17/24935 Welcome Wagon Host/Hostess: MISHEL Signed [facility] Cardiology Visit Reporton Cardiology Visit Report [facility] [address] [place] [address] OFFICE VISIT Date of Service: 04/17/24 MR#: [id number] Acct: [id number] Name: RYLEY MCKEON Rep #: [id number] : 1945 Provider: CAM miller Age/Sex: 78/M Location: [facility] Status: Signed HPI HPI History of Present Illness Details: RYLEY MCKEON, is a 78M who presents to the office today for a follow-up visit. He is a gentleman with a history of mitral valve disease status post mitral valve repair for mitral valve prolapse in 2000 at the [facility]. He had presented a while ago with atrial flutter for which she underwent YURIDIA guided cardioversion and repeat cardioversion. 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 He sought the EP doctors at [facility] and it was decided to pursue expectant therapy. He has done well since. He did have an echocardiogram performed in 2021 which demonstrated stable ejection fraction of 60% and stable status post mitral valve repair with an annuloplasty ring. He had transesophageal echocardiogram and cardioversion on 04/06/2024. He presented to office on 04/13/2024 for a post cardioversion ECG. This showed sinus bradycardia at a rate of 46 bpm. His metoprolol was placed on hold. On 04/17/2024 he underwent repeat ECG that showed atrial fibrillation at a rate of 120 bpm. He denies chest, arm, jaw, or neck discomfort. He acknowledges palpitations that he describes as a flutter sensation. He denies bilateral lower extremity edema. He denies claudication. He states shortness of breath with activity such as talking. He denies shortness of breath at rest, orthopnea, or PND. He denies chronic cough. He denies significant, sudden weight gain. He denies lightheadedness, dizziness, near-syncope, or syncope. He denies blood in urine, blood in stool, or epistaxis. He denies fever with chills. He denies myalgia. He states fatigue. His exercise level has remained stable. 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 Accompanied by: Is patient in pain?: No Allergies hydrocodone (From Vicodin) Allergy (Mild, Verified 04/17/24 09:30) Nausea oxycodone (From Percocet) Adverse Reaction (Intermediate, Verified 04/17/24 09:30) nausea Medications ???Medication ???Instructions ???Recorded ???Confirmed ???Type lorazepam 0.5 mg tablet 0.25 tab PO DAILY PRN PRN Anxiety 10/06/13 04/17/24 History multivitamin with folic acid 400 1 tab PO DAILY 10/06/13 04/17/24 History mcg tablet bupropion HCl 300 mg 24 hr tablet, 300 mg PO QAM 07/05/17 04/17/24 History extended release triamcinolone acetonide 55 mcg 2 spray intranasal QDAY 09/24/17 04/17/24 History nasal spray aerosol (Nasacort) coenzyme Q10 100 mg capsule 100 mg PO DAILY 08/21/19 04/17/24 History zinc 50 mg tablet 50 mg PO DAILY 08/23/20 04/17/24 History biotin 5 mg capsule 5 mg PO DAILY 10/16/22 04/17/24 History atorvastatin 40 mg tablet 40 mg PO QHS #90 TABLETS 11/04/23 04/17/24 Rx losartan 50 mg tablet 50 mg PO DAILY #90 tabs 01/08/24 04/17/24 Rx amoxicillin 500 mg capsule 2,000 mg PO ONCE PRN 04/17/24 04/17/24 History metoprolol tartrate 25 mg tablet 25 mg PO BID #60 tabs 04/17/24 04/17/24 Rx rivaroxaban 20 mg tablet (Xarelto) 20 mg PO DAILY #90 tabs 04/17/24 04/17/24 Rx Ejection fraction %: 40 Have you fallen in the past year?: No PFSH Medical History Nonobstructive atherosclerosis of coronary artery Myxomatous mitral valve regurgitation Nonrheumatic mitral (valve) prolapse Atypical atrial flutter Prostate cancer Paroxysmal atrial fibrillation Essential (primary) hypertension Obstructive sleep apnea Hypersomnia, unspecified Depression Dyslipidemia Surgical History H/O transurethral destruction of bladder lesion (10/2013) History of cardioversion (04/06/24) History of left heart catheterization (06/23/08) Macular hole repair Hx of cataract surgery Retinal detachment PE Tube right ear H/O prostate biopsy Left knee meniscus repair H/O inguinal hernia repair History of mitral valve repair (10/04/00) Family History Father , age 89 CAD (coronary artery disease) Hx of CABG, Onset Age: 68 Uncle CAD (coronary artery disease) Ruthann (more content not included)... [facility] 12 Lead [place] [facility] [place]-13-2024 12 Lead EKG performed by [place] [address] [place] [address] 12 Lead EKG performed [place] [facility] 04/13/2436 MR#: [id number] Acct: [id number] Name: RYLEY MCKEON Rep #: [id number] : 1945 78 From: Rocky Nelson MD Attending Dr: Dr. Rocky Nelson MD Status: REG A MB Ordering Dr: Rocky Nelson MD Date: 04/13/24 [place] [facility] Sex: M C Admitted: [facility]12 Lead EKG performed by [facility] ECG Report Interpretation Marked Sinus Bradycardia P:QRS - 1:1, Abnormal P axis, H Rate 46-Incomplete left bundle branch block and right axis. -Poor R wave progression DISTRESSER Anterior infarct -age undetermined. ABNORMAL Electronically signed on 04/13/2024 at 11:[address] Brady Boothewood Software Version [id number] 04/13/24 1125 Date Rocky Nelson MD CC: Dr. Johnnie Ross MD Date Dictated: 04/13/24835 Date Transcribed: 04/13/24835 Welcome Wagon Host/Hostess: CO Signed [facility] Office Visit Reporton 2024 Office Visit Report [facility] [address] [place] [address] OFFICE VISIT Date of Service: 04/13/24 MR#: [id number] Acct: [id number] Patient: RYLEY MCKEON Rep #: [id number] : 1945 Provider: Dr. Rocky Nelson MD Age/Sex: 78/M [place] [facility] Status: Signed Intake Vital Signs 04/06/24 09:26 Height 5 ft 7 in Weight: 151 lb Intake Visit Reasons: 1 W DCCV Chief Complaint: Follow up Allergies hydrocodone (From Vicodin) Allergy (Mild, Verified 12/12/23 10:00) Nausea oxycodone (From Percocet) Adverse Reaction (Intermediate, Verified 12/12/23 10:00) nausea Have you fallen in the past year?: No Nursing Note Pt in to see us following DCCV. EKG obtained at this time. The only symptoms reported by patient at this time is fatigue. Pt questioned the metoprolol dosage as his heart rate has been low (46 BPM on ECG). He had previously halved his dose due to low HR, but began to experience palpitations on the lower dose. Instructed by provider team to have patient hold metoprolol and schedule a follow-up appointment with JR this Saturday04/17/2024. Assessment and Plan Assessment and Plan Orders: Orders 12 Lead EKG performed by [facility] Today I48.0 - Paroxysmal atrial fibrillation, I48.19 - Other persistent atrial fibrillation, I48.4 - Atypical atrial flutter, R00.1 - Bradycardia, unspecified Clinical Quality Measures Falls Risk Screening/Assistive Devices Have you fallen in the past year?: No 04/13/24 1620 Date Rocky Nelson MD Cosigner Signature: Date (if applicable) CC: [facility] Echo Transesophageal (YURIIDA)on 04-06-2024 Echo Transesophageal (YURIDIA) [facility] [address] [place] [address] Echo Transesophageal (YURIDIA) 04/06/24 0959 MR#: [id number] Acct: [id number] Name: RYLEY MCKEON Rep #: [id number] : 1945 78 From: Rocky Nelson MD Attending Dr: Dr. Rocky Nelson MD Status: REG S DC Ordering Dr: Rocky Nelson MD Date: 04/06/24 Location: [facility] Sex: M C Admitted: Reason For Study: AFIB Medication YURIDIA probe 6VT-D (SN [id number]) passed without difficulty. No complications were noted. Versed 2 mg given slow IVP. Fentanyl 50 mcg given slow IVP. Cetacaine Topical [place] given X3 orally. Performed a rapid injection of agitated mix of 9 cc saline and 1cc air to assess for atrial septal defect. Left Ventricle Normal LV size. Left ventricular systolic function is normal. The left ventricular ejection fraction is 50 %. No regional wall motion abnormalities noted. Right Ventricle Normal RV size. Normal systolic function. Atria Bubble contrast study is negative for PFO/ASD. The left atrium is mildly enlarged. No thrombus is detected in the left atrial appendage. There is mild sponatenous contrast in the left atrium. Normal right atrium. Mitral Valve Normal mitral valve. Tricuspid Valve Normal tricuspid valve. Aortic Valve Trisinus/trileaflet aortic valve. Mild (1+) aortic valve insufficiency. Pulmonic Valve Normal pulmonic valve. Vessels Normal aortic root. Normal arch. The pulmonary artery is normal size. Pericardium No pericardial effusion. ECHO/Echo Transesophageal (YURIDIA) Interpretation Summary The left atrium is mildly enlarged. Normal LV size. Left ventricular systolic function is normal. The left ventricular ejection fraction is 50 %. Bubble contrast study is negative for PFO/ASD. No thrombus is detected in the left atrial appendage. There is mild sponatenous contrast in the left atrium. Ordering Physician: Rocky Nelson Referring Physician: Rocky Nelson Performed By: Roberta Alcantar RCS 04/06/24 1328 Date Rocky Nelson MD CC: Dr. Rocky Nelson MD; Dr. Johnnie Ross MD Date Dictated: 04/06/24 0959 Date Transcribed: 04/06/24 1328 Welcome Wagon Host/Hostess: Signed [facility] Procedure Reporton Procedure Report [facility] Medical Records Department [address] [place] [address] Procedure Report 04/06/24 1144 MR#: [id number] Acct: [id number] Name: RYLEY MCKEON Rep #: [id number] : 1945 78 From: Yoan Romero DO PCP: Dr. Johnnie Ross MD Status:REG [facility] Location: [facility] Procedures Pulmonary Pulmonary Procedures /Diagnostic Testin Con Sedation Non-invasive Procedural Procedure Information Description of procedure: CONSCIOUS SEDATION REPORT DATE OF SERVICE: April 06, 2024 BRIEF HISTORY OF PRESENT ILLNESS: The patient is a 78-year-old male, who presented to [facility] to undergo an elective cardioversion due to underlying atrial fibrillation. The patient did undergo a YURIDIA this morning, which revealed an ejection fraction of approximately 50%. He did undergo a prior cardioversion in 2018, for which he tolerated propofol, without issue. The patient is systemically anticoagulated on Xarelto. PHYSICAL EXAMINATION: VITAL SIGNS: Reviewed and were acceptable. GENERAL: The patient is a male, in no apparent distress, speaking in full sentences. HEENT: Normocephalic, atraumatic. Mucous membranes are moist and pink. Good mouth opening noted. Trachea is midline. Good neck mobility. CHEST: S1, S2 irregularly irregular. No murmurs, rubs or gallops were noted. LUNGS: Clear to auscultation bilaterally without appreciable wheezes, rales or rhonchi. ABDOMEN: Soft, nontender, nondistended. Positive bowel sounds. EXTREMITIES: There is no clubbing, cyanosis or edema. ASA Class: II DESCRIPTION OF PROCEDURE: After confirmation of informed consent, the patient's anesthesia plan was reviewed in detail. Propofol was chosen. Risks and benefits were reviewed and the patient agreed to proceed. At 1122, the patient was given 50 mg of propofol. The patient achieved an appropriate level of sedation and was given a 200 joule synchronized cardioversion by Dr. Nelson at the bedside. This was successful in achieving normal sinus rhythm. The patient was monitored until 1140, at which time he reached his baseline mental status and function. The patient tolerated the procedure well. COMPLICATIONS: None ESTIMATED BLOOD LOSS: None RECOMMENDATIONS: Okay to recover in usual fashion. 04/06/24 1146 Cosigner Signature (if applicable): CC: Dr. Rocky Nelson MD; Dr. Yoan Romero DO; Dr. Johnnie Ross MD Signed [facility] Procedure Report [facility] Medical Records Department [address] [place] [address] Procedure Report 04/06/24 1133 MR#: [id number] Acct: [id number] Name: RYLEY MCKEON Rep #: [id number] : 1945 78 From: Rocky Nelson MD PCP: Dr. Johnnie Ross MD Status:REG [facility] Location: [facility] Problems Associated Problem List Diagnoses (1) Paroxysmal atrial fibrillation: (2) History of mitral valve repair: Non-invasive Procedural Procedure Information Date of Procedure: 04/06/24 Pre-Procedure Diagnosis: Atrial fibrillation Post-Procedure Diagnosis: Atrial fibrillation Procedure Performed:: DC cardioversion with YURIDIA guidance web knitter: No Procedure Time Out: 11:15 Procedure Start Time: 11:20 Procedure Stop Time: 11:30 Special Medications: 50 mg of intravenous propofol Description of procedure: Patient underwent YURIDIA this morning which demonstrated no evidence of left atrial appendage thrombus. The patient was then seen by Dr. Romero of the critical care division. Informed consent was obtained. Anterior-posterior pads were applied. The patient was administered 50 mg intravenous propofol and then 200 J of synchronized DC cardioversion energy biphasic was applied with prompt reversal to sinus rhythm. Patient tolerated the procedure well. Procedure findings: Status post recovering to sinus rhythm. Will recommend DC beta-michell at this time. Complications Complications: No 04/06/24 1135 Cosigner Signature (if applicable): CC: Dr. Rocky Nelson MD; Dr. Johnnie Ross MD Signed [facility] CNOVon 04-02-2024 CNOV Office Visit (INTMWS ) -- RYLEY MCKEON ([id number]) 1945 M Date Time Provider Department 04/02/24 2:20 PM JOHNNIE ROSS INTMWS During your visit today, we recorded the following information about you: Temperature Pulse Respiration Blood pressure 98 degrees 112/minute 16/minute 118/62 Weight 67.3 kg Johnnie Ross MD 04/02/2024 3:50 PM Signed This note was created using [employer]riter. Subjective Ryley Mckeon is a 78 year old male. Patient presents with: Sore Throat: Was sore a week ago went away . Now cough and voice is hoarse SUBJECTIVE: Ryley Mckeon is a 78 year old year old gentleman here today for acute same day follow up appointment for review of medical conditions: Sore throat and a-fib. Laryngitis - Very persistent cough and phlegm. Denies pain or fever. - Going on for about 10 days - Using vaporizer at night; taking mucinex occasionally which has helped and benzonatate - Unable to sleep d/t cough - feels like he's not eating as much; noticed a slight decrease in weight today but he states this is within his normal fluctuation - No known sick contacts - Nasacort has been helpful in keeping some symptoms at bay A-fib: YURIDIA and cardioversion scheduled for Saturday Ryley Mckeon is a 78-year-old male with a history of A-fib and A-flutter, presenting with symptoms of laryngitis and cough for the past 10 days. Ryley reports experiencing laryngitis and cough for the past 10 days, attributing the hoarseness to frequent throat clearing. He denies persistent fevers, chills, or severe dyspnea. He has been using Tessalon Perles and Mucinex, which have been effective in managing the cough, and is also using Nasacort for post-nasal drip. Recently, Ryley visited urgent care due to palpitations and was advised to go to the ER given his history of A-fib and A-flutter. In the ER, he was evaluated by Dr. Adamson, who confirmed he was in A-fib/A-flutter with an elevated heart rate. A YURIDIA is scheduled for next Saturday to assess the feasibility of cardioversion to restore sinus rhythm. Ryley is currently on Xarelto, having switched back from Eliquis due to insurance considerations and cost-effectiveness. PAST MEDICAL HISTORY Diagnosis Date At risk for stroke [id number] = 2 (HTN, age > 65 yrs) Atrial flutter (HCC) probably atypical form; symptomatic Bradycardia sinus bradycardia Coronary artery disease involving [place] coronary artery of [place] heart without angina pectoris Dr Nelson[facility] Dyslipidemia Hemorrhage of gastrointestinal tract, unspecified HTN (hypertension) Internal hemorrhoids without mention of complication detention (current) use of anticoagulants apixaban (Eliquis); indication: stroke prevention AF Macular hole of right eye Mitral valve regurgitation myxomatous mitral valve regurgitation, s/p MV repair 2000 Persistent atrial fibrillation (HCC) symptomatic; also has paroxysmal episodes; medical therapy very limited by sinus bradycardia PMH - PAST MEDICAL HISTORY OF blood in stool Premature ventricular contractions (PVCs) (VPCs) symptomatic; evaluated by Dr. Langston ([facility]) in 2008, considered to be benign PVCs; improved with beta-michell but developed fatigue, then treated with verapamil Prostate cancer (HCC) followed by Dr. Thomas Retinal detachment, left 01/2016 Sinus bradycardia Sinus node dysfunction (HCC) probably in part due to recurrent atrial arrhythmias Unspecified constipation Current Outpatient Medications Medication Sig buPROPion XL (WELLBUTRIN XL) 300 mg 24 hr tablet Take 1 tablet by mouth once daily. XARELTO 20 mg tablet Tadalafil (CIALIS) 20 mg tablet Take 1 tablet by mouth as needed. Take 1-2 hours before sexual activity. apixaban (ELIQUIS) 5 mg tab(s) Take 1 tablet by mouth two times a day. (Patient not taking: Reported on 03/30/2024) coenzyme Q10 (COENZYME Q-10) 100 mg cap capsule Take 100 mg by mouth twice daily. ZINC ACETATE ORAL Take by mouth. triamcinolone acetonide (NASACORT NASAL) Use in the nose once daily. atorvastatin (LIPITOR) 40 mg tablet Take 40 mg by mouth once daily. losartan (COZAAR) 25 mg tablet Take 50 mg by mouth once daily. BIOTIN ORAL Take 5,000 mcg by mouth once daily. MULTIVITAMIN TAB Take one(1) tablet by mouth daily. No current facility-administered medications for this visit. Review of Systems Constitutional: Positive for fatigue. Negative for fever. HENT: Positive for postnasal drip and sore throat. Negative for congestion and rhinorrhea. Respiratory: Positive for cough. Negative for chest tightness, shortness of breath and wheezing. Cardiovascular: Positive for palpitations. Negative for chest pain. Gastrointestinal: Negative for constipation, diarrhea, nausea and vomiting. Objective There were no vitals taken for this visit. Physical Exam (more content not included)... Normal [facility] 04-02-2024 [facility] Telephone (INTMWS) -- MIKERYLEY Marcela ([id number]) 1945 M Date Time Provider Department 04/02/24 JOHNNIE ROSS INTMWS During your visit today, we recorded the following information about you: Char Serrato LPN 04/02/2024 9:24 AM Signed Patient Michelle calling has had sore throat for almost 2 weeks now. He was in express care on 03/30 and was sent to [facility] ER because of tachycardia. ER put him on Metoprolol 25 mg one tablet twice daily and he is set up for YURIDIA on 04/[address] Nelson. ER did COVID test which was negative, did not do strep test. She said can not sleep at night from the coughing, post nasal drainage, now has yellow secretions, voice hoarse, sore throat, no fever. He uses [facility] for his pharmacy, asking if he could have antibiotic rx? He is afraid YURIDIA will be cancelled due to his throat. no appt available to get him scheduled for today to be seen. Please advise Johnnie Ross MD 04/02/2024 9:40 AM Signed Offer appointment--there are openings on my schedule Char Serrato LPN 04/02/2024 9:43 AM Signed Phoned patient spoke to Michelle, scheduled to see PCP at 220 pm today. Allergies As of Date: 04/02/2024 Noted Allergy Reaction HYDROCODONE 02/11/2018 11 - Vomiting OXYCODONE 02/11/2018 11 - Vomiting PERCOCET (OXYCODONE-ACETAMINOPHEN)0 05/01/2017 8 - GI Upset Date Reviewed: 03/30/2024 Reviewed by: Gomez Wang APRN.HOME HEALTH CLINICIAN - Fully Assessed Reason for Visit: Medication Request [138] Prescriptions as of 04/02/2024 - buPROPion XL (WELLBUTRIN XL) 300 mg 24 hr tablet Take 1 tablet by mouth once daily. - XARELTO 20 mg tablet - Tadalafil (CIALIS) 20 mg tablet Take 1 tablet by mouth as needed. Take 1-2 hours before sexual activity. - apixaban (ELIQUIS) 5 mg tab(s) Take 1 tablet by mouth two times a day. - coenzyme Q10 (COENZYME Q-10) 100 mg cap capsule Take 100 mg by mouth twice daily. - ZINC ACETATE ORAL Take by mouth. - triamcinolone acetonide (NASACORT NASAL) Use in the nose once daily. - atorvastatin (LIPITOR) 40 mg tablet Take 40 mg by mouth once daily. - losartan (COZAAR) 25 mg tablet Take 50 mg by mouth once daily. - BIOTIN ORAL Take 5,000 mcg by mouth once daily. - MULTIVITAMIN TAB Take one(1) tablet by mouth daily. Problem List As Of Date 04/02/2024 Noted Resolved S/P mitral valve repair [Z98.890] 08/31/2008 Palpitations [R00.2] 05/28/2017 06/13/2021 MVP (mitral valve prolapse) [I34.1] 05/28/2017 detention (current) use of anticoagulants [Z79.* At risk for stroke [Z91.89] Persistent atrial fibrillation (HCC) [I48.19] Bradycardia [R00.1] Sinus bradycardia [R00.1] 06/13/2021 Premature ventricular contractions (PVCs) (VPCs* Atrial flutter (HCC) [I48.92] Sinus node dysfunction (HCC) [I49.5] Malignant neoplasm of prostate (HCC) [C61] 03/16/2021 Anxiety and depression [F41.9, F32.A] 06/13/2021 LISSETTE (obstructive sleep apnea) [G47.33] 06/13/2021 CAD (coronary artery disease) [I25.10] 06/13/2021 HTN (hypertension) [I10] 06/13/2021 Dyslipidemia [E78.5] 06/13/2021 Tricuspid insufficiency [I07.1] 06/13/2021 Systolic dysfunction [I51.9] 06/13/2021 Encounter Status:Closed by CHAR SERRATO on 04/02/24 Normal [facility] [id number] 04-02-2024 ECG01 Ventricular Rate : 1 12 BPM Atrial Rate : 112 BPM P-R Interval : 190 ms QRS Duration : 104 ms Q-T Interval : 344 ms QTC Calculation(Bazett) : 469 ms Calculated R [place] : 100 degrees Calculated T [place] : 91 degrees Atrial Tachycardia RIGHT AXIS ANTERIOR MYOCARDIAL INFARCTION , AGE UNDETERMINED ABNORMAL ECG Confirmed by MD ROSSI QARAB ([id number]) on 04/06/2024 5:23:44 PM NAME : RYLEY MCKEON PID : [id number] : 1945 Gender : Male Race : ORD : Procedure Date : Apr 02 2024 15:55:47 Edit Date : Apr 06 2024 17:23:49 Diagnosis: Atrial Tachycardia RIGHT AXIS ANTERIOR MYOCARDIAL INFARCTION , AGE UNDETERMINED ABNORMAL ECG Confirmed by MD ROSSI QARAB ([id number]) on 04/06/2024 5:23:44 PM Test Reason : sarah beth fuentes lpn Location : 185 : [facility] Overread By : MD ROSSI QARAB Edited By : MD ROSSI QARAB Referred By : Johnnie Ross Acquired by : sarah beth fuentes lpn, Normal [facility] 12 Lead EKGon 03-30-2024 12 Lead EKG [facility] Cardiovascular Services [address] [place] [address] 12 Lead EKG 03/30/24 1855 MR#: [id number] Acct: [id number] Name: RANDYMARIA GARMANDORYLEY Marcela Rep #: [id number] : 1945 78 From: Rocky Nelson MD Attending Dr: Status: DEP ER Ordering Dr: Jeannie Lamb DO Date: 03/30/24 Location: ED Sex: M C Admitted: Test Reason : DYSRHYTHMIA Blood Pressure : */* mmHG Vent. Rate : 119 BPM Atrial Rate : 119 BPM P-R Int : 294 ms QRS Dur : 82 ms QT Int : 184 ms P-R-T Axes : 61 97 244 degrees QTcB Int : 258 ms Sinus tachycardia with 1st degree A-V block Possible Left atrial enlargement Rightward axis Septal infarct ST T wave abnormality, consider inferior ischemia Abnormal ECG Confirmed by ROCKY NELSON MD ([id number]), editor city SHELBIE LARA ([id number]) on 04/02/2024 2:24:46 PM Referred By: Confirmed By: ROCKY NELSON MD 04/02/24 142 Date Rocky Nelson MD CC: Dr. Jeannie Lamb DO; Dr. Johnnie Ross MD Signed [facility] BNP,B-Type NATRIURETIC PEPTI Antonio 03-30-2024 Natriuretic peptide B (Bld) [Mass/Vol] 96.8 pg/mL Normal 0-100 [facility] Comment on above: Performed By: #### L 503.6620 #### [facility] [address] [place], [place], [id number] Basic Metabolic Profile (BMP )on 03-30-2024 BUN/CRE 16.7 RATIO Normal 10-20 [facility] Comment on above: Order Comment: 1Y Performed By: #### L 501.9520 #### [facility] [address] [place], [address] CA,Total 9.1 mg/dL Normal 8.5-10.1 [facility] Comment on above: Order Comment: 1Y Performed By: #### L 501.9520 #### [facility] [address] [place], [place], [id number] Chloride [Moles/Vol] 108 mmol/L High 98-107 [facility] Comment on above: Order Comment: 1Y Performed By: #### L 501.9520 #### [facility] [address] [place], [address] CO2 [Moles/Vol] 30.0 mmol/L Normal 21.0-32.0 [facility] Comment on above: Order Comment: 1Y Performed By: #### L 501.9520 #### [facility] [address] [place], [address] Creatinine [Mass/Vol] 0.90 mg/dL Normal 0.70-1.30 [facility] Comment on above: Order Comment: 1Y Result Comment: The validity of the calculated GFR GFRAA in patients over 70 years has not been determined. Clinical correlation is essential. Performed By: #### L 501.9520 #### [facility] [address] [place], [address] ECRCL 65.28 ml/min Normal [facility] Comment on above: Order Comment: 1Y Performed By: #### L 501.9520 #### [facility] [address] [place], [address] EST GFR - AA 106 mL/min Normal >60 [facility] Comment on above: Order Comment: 1Y Result Comment: Afri can Moldovan GFR Calc Performed By: #### L 501.9520 #### [facility] [address] [place], [address] GAP 4 Low 5-15 [facility] Comment on above: Order Comment: 1Y Performed By: #### L 501.9520 #### [facility] [address] [place], [address] GFR/1.73 sq M.predicted among non-blacks MDRD (S/P/Bld) [Vol rate/Area] 87 mL/min/{1.73_m2} Normal >60 [facility] Comment on above: Order Comment: 1Y Result Comment: Non- GFR Calc Performed By: #### L 501.9520 #### [facility] [address] [place], [address] Glucose [Mass/Vol] 113 mg/dL High 74-106 [facility] Comment on above: Order Comment: 1Y Result Comment: Fast ing Glucose result from 100 to 125 mg/dL suggests IMPAIRED HOMEOSTASIS per A.D.A. criteria. Performed By: #### L 501.9520 #### [facility] [address] [place], [address] Potassium [Moles/Vol] 4.0 mmol/L Normal 3.5-5.1 [facility] Comment on above: Order Comment: 1Y Performed By: #### L 501.9520 #### [facility] [address] [place], [address] Sodium [Moles/Vol] 142 mmol/L Normal 136-145 [facility] Comment on above: Order Comment: 1Y Performed By: #### L 501.9520 #### [facility] [address] [place], [address] Urea nitrogen [Mass/Vol] 15 mg/dL Normal 7-18 [facility] Comment on above: Order Comment: 1Y Performed By: #### L 501.9520 #### [facility] [address] [place], [address] CBC W/Diff, Automatedon 12-2 -2023 Absolute Lymph 2.21 X10 3/uL Normal 0.83-4.51 [facility] Comment on above: Performed By: #### L 500.2500, L501.5425, L300.3900, L100.0100 ####[facility] [address] [place], [address] Absolute Neut 6.5 X10 3/uL Normal 2.0-7.7 [facility] Comment on above: Performed By: #### L 500.2500, L501.5425, L300.3900, L100.0100 ####[facility] [address] [place], [address] Basophils/100 WBC (Bld) 0.6 % Normal 0-1 [facility] Comment on above: Performed By: #### L 500.2500, L501.5425, L300.3900, L100.0100 ####[facility] [address] [place], [address] Eosinophils/100 WBC (Bld) 2.2 % Normal 0-5 [facility] Comment on above: Performed By: #### L 500.2500, L501.5425, L300.3900, L100.0100 ####[facility] [address] [place], [address] Erythrocyte distribution width (RBC) [Ratio] 13.2 % Normal 11.6-14.6 [facility] Comment on above: Performed By: #### L 500.2500, L501.5425, L300.3900, L100.0100 ####[facility] [address] [place], [address] Hematocrit (Bld) [Volume fraction] 45.3 % Normal 40-54 [facility] Comment on above: Performed By: #### L 500.2500, L501.5425, L300.3900, L100.0100 ####[facility] [address] [place], [address] Hemoglobin (Bld) [Mass/Vol] 15.1 g/dL Normal 13.0-16.5 [facility] Comment on above: Performed By: #### L 500.2500, L501.5425, L300.3900, L100.0100 ####[facility] [address] [place], [address] IG% 0.300 Normal 0.0-0.9 [facility] Comment on above: Result Comment: IG% - Immature Granulocytes (promyelocytes, myelocytes and metamyelocytes) > 1% indicates that a LEFT SHIFT is Present. Performed By: #### L 500.2500, L501.5425, L300.3900, L100.0100 ####[facility] [address] [place], [address] Lymphocytes/100 WBC (Bld) 21.9 % Normal 19-41 [facility] Comment on above: Performed By: #### L 500.2500, L501.5425, L300.3900, L100.0100 ####[facility] [address] [place], [address] MCH (RBC) [Entitic mass] 30.8 pg Normal 27.0-32.0 [facility] Comment on above: Performed By: #### L 500.2500, L501.5425, L300.3900, L100.0100 ####[facility] [address] [place], [address] MCHC (RBC) [Mass/Vol] 33.3 g/dL Normal 32-36 [facility] Comment on above: Performed By: #### L 500.2500, L501.5425, L300.3900, L100.0100 ####[facility] [address] [place], [address] MCV (RBC) [Entitic vol] 92.3 fL Normal 80-94 [facility] Comment on above: Performed By: #### L 500.2500, L501.5425, L300.3900, L100.0100 ####[facility] [address] [place], [address] Monocytes/100 WBC (Bld) 10.4 % High 0-10 [facility] Comment on above: Performed By: #### L 500.2500, L501.5425, L300.3900, L100.0100 ####[facility] [address] [place], [address] Neutrophils/100 WBC (Bld) 64.6 % Normal 47-70 [facility] Comment on above: Performed By: #### L 500.2500, L501.5425, L300.3900, L100.0100 ####[facility] [address] [place], [address] Nucleated RBC (Bld) [#/Vol] 0 10*3/uL Normal 0-5 [facility] Comment on above: Performed By: #### L 500.2500, L501.5425, L300.3900, L100.0100 ####[facility] [address] [place], [address] Platelet mean volume (Bld) [Entitic vol] 8.9 fL Normal 6.2-12.0 [facility] Comment on above: Performed By: #### L 500.2500, L501.5425, L300.3900, L100.0100 ####[facility] [address] [place], [address] Platelets (Bld) [#/Vol] 320 10*3/uL Normal 150-450 [facility] Comment on above: Performed By: #### L 500.2500, L501.5425, L300.3900, L100.0100 ####[facility] [address] [place], [address] RBC (Bld) [#/Vol] 4.91 10*6/uL Normal 4.6-6.2 [facility] Comment on above: Performed By: #### L 500.2500, L501.5425, L300.3900, L100.0100 ####[facility] [address] [place], [address] RDW SD 45.0 fl High 35.1-43.9 [facility] Comment on above: Performed By: #### L 500.2500, L501.5425, L300.3900, L100.0100 ####[facility] [address] [place], [address] WBC (Bld) [#/Vol] 10.1 10*3/uL Normal 4.4-11.0 [facility] Comment on above: Performed By: #### L 500.2500, L501.5425, L300.3900, L100.0100 ####[facility] [address] [place], [address] CNOVon 03-30-2024 CNOV Office Visit ([facility] ) -- RYLEY MCKEON ([id number]) 1945 M Date Time Provider Department 03/30/24 5:45 PM GOMEZ WANG [facility] During your visit today, we recorded the following information about you: Temperature Pulse Respiration Blood pressure 98.1 degrees 120/minute 18/minute 142/84 Weight 67.6 kg Gomez Wang APRN.CNP 03/30/2024 6:05 PM Signed Subjective HPI Nontoxic-appearing male presents urgent care chief complaint cough sore throat. Duration of symptoms 6 days. Associated symptoms elevated heart rate cough sore throat. Presents today for evaluation. States heart rate has been in the low 100s over the last few days. History of A-fib. Has needed cardioversion multiple times for this in the past. 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 Langston ([facility]) in 2008, considered to be benign PVCs; improved with beta-michell but developed fatigue, then treated with verapamil Prostate cancer (HCC) followed by Dr. Thomas Retinal detachment, left 01/2016 Sinus bradycardia Sinus node dysfunction (HCC) probably in part due to recurrent atrial arrhythmias Unspecified constipation PAST SURGICAL HISTORY Procedure Laterality Date CARDIAC CATH 06/23/2008 reportedly minimal CAD CARDIAC CATH 06/23/2008 LVEF 55%; LAD 10% prox, D1 20-30% ostial, LCX normal, RCA 10-20% prox, right AV branch 10-20%, right PL branch 10-20% CARDIAC STRESS TEST 06/16/2008 no stress-induced myocardial ischemia CARDIOVERSION ELECTIVE ARRHYTHMIA INTERNAL SPX 04/24/2017 CARDIOVERSION ELECTIVE ARRHYTHMIA INTERNAL SPX 04/30/2017 CATARACT EXTRACTION HX Left 10/2016 CATARACT EXTRACTION HX Right 11/2016 COLONOSCOPY FLX DX W/COLLJ SPEC WHEN PFRMD 08/28/2005 Colonoscopy ECHO TRANSESOPHAG CONGEN PROBE [facility] IMG IANDR 04/24/2017 Dr. Jony Urrutia: mild global LV systolic dysfxn; LVEF 45%; mild LaE; no clots ECHOCARDIOGRAM 07/31/2016 LVEF 60% ECHOCARDIOGRAM 07/31/2016 LVEF 60%; trivial MR with stable annuloplasty ring; mild TR EYE SURGERY HX Right 12/2016 HOLTER MONITOR 48 HOUR 04/26/2017 sinus rhythm with AF/flutter, max HR 154 bpm; reported symptoms correlated with AF and atrial flutter INGUINAL HERNIA REPAIR HX Right 1969 KNEE SURGERY HX Left 2006 arthroscopy MITRAL VALVE SURGERY HX 10/04/2000 [facility]AST 08/31/2008 [facility]: LVEF 59%; normal RV, LV; no evidence for [facility] MYRINGOTOMY Right PROSTATE BIOPSY 12/2020 [facility]PR RETINAL DTCHMNT INJECTION AIR/OTHER GAS Left 01/2016 also had right eye retina tacked down at same time SEED IMPLANT 06/2009 prostate STRESS TEST EXERCISE-NUCLEAR 06/16/2008 TRURL ELECTROSURG RESCJ PROSTATE BLEED COMPLETE 10/2013 ALLERGIES Hydrocodone, Oxycodone, and Percocet [Oxycodone-Acetaminophen] MEDICATIONS buPROPion XL (WELLBUTRIN XL) 300 mg 24 hr tablet Take 1 tablet by mouth once daily. XARELTO 20 mg tablet Tadalafil (CIALIS) 20 mg tablet Take 1 tablet by mouth as needed. Take 1-2 hours before sexual activity. coenzyme Q10 (COENZYME Q-10) 100 mg cap capsule Take 100 mg by mouth twice daily. ZINC ACETATE ORAL Take by mouth. triamcinolone acetonide (NASACORT NASAL) Use in the nose once daily. atorvastatin (LIPITOR) 40 mg tablet Take 40 mg by mouth once daily. losartan (COZAAR) 25 mg tablet Take 50 mg by mouth once daily. BIOTIN ORAL Take 5,000 mcg by mouth once daily. MULTIVITAMIN TAB Take one(1) tablet by mouth daily. apixaban (ELIQUIS) 5 mg tab(s) Take 1 tablet by mouth two times a day. (Patient not taking: Reported on 03/30/2024) FAMILY HISTORY Problem Relation Age of Onset other (afib) Sister ablation Coronary Artery Disease Brother had slight heart attack, ? intracoronary stent other (afib) Brother ablation other (sleep apnea) Brother Heart disease Father CABG Coronary Artery Disease Father other (hea (more content not included)... Normal [facility] Chest 1 View (Portable)on Chest 1 View (Portable) [facility] Imaging Services [address] [place], [place] [id number] Chest 1 View (Portable) MR#: [id number] Acct: [id number] Name: RANDYMARIA GRYLEY ROBERTS Marcela Rep #: [id number] : 1945 M 78 From: Chandler Arceo PCP: Dr. Johnnie Ross MD Status: REG ER Study: Chest 1 View (Portable) Date of Exam: 03/30/24 Exam# [id number] Ordering Dr: Jeannie Lamb DO [id number] STUDY: X-RAY CHEST REASON FOR EXAM: Male, 78 years old. chest pain TECHNIQUE: Single frontal view of the chest. COMPARISON: January 11, 2033 FINDINGS: Sternotomy wires. Lungs are hyperaerated. The lungs are clear and expanded. There is no demonstrated pleural abnormality. Normal size heart. Normal mediastinum and son. Normal visualized pulmonary arteries. Normal visualized aortic arch and descending thoracic aorta. Mild dextroconvex scoliosis. Normal visualized ribs, clavicles, and shoulders. There is no demonstrated abnormality of the visualized soft tissue structures of the upper abdomen. RAD/Chest 1 View (Portable) IMPRESSION: COPD. Sternotomy. No acute disease. Electronically Signed: Chandler Rodriguez MD at 20:16 EST , CC: Dr. Jeannie Lamb DO; Dr. Johnnie Ross MD Welcome Wagon Host/Hostess: Signed Normal [facility] Emergency Department Summary on 03-30-2024 Emergency Department Summary [facility] Medical Records Department [address] [place] [id number] Emergency Department Summary 03/30/24 MR#: [id number] Acct: [id number] Name: RYLEY MCKEON Rep #: [id number] : 1945 78 From: Jeannie Lamb DO PCP: Dr. Johnnie Ross MD Status:REG ER Location: ED HPI History of Present Illness Chief Complaint: Palpitations Informant: patient Narrative Narrative: Patient is a 78-year-old male with history of atypical atrial flutter/proximal atrial fibrillation (was cardioverted previously does not been A-fib since as far as he is aware), dyslipidemia and prostate cancer as well as mitral valve repair presenting with tachycardia and and laryngitis. Patient states 5 days ago he started noticing that his voice was hoarse and is having a postnasal drip. On Saturday, 2 days ago he noticed that his heart rate was 111. He thought maybe he is back in atrial fibrillation. He is currently not on any rate control medication as he did not tolerate beta-blockers and his heart rate was going too low on calcium channel blockers. He notes that he has been having a cough at night that is dry and nonproductive. Denies any fevers. Denies any shortness of breath but states he does feel little bit more winded when talking. Denies any dyspnea on exertion. Denies any chest pain or tightness. Denies any nausea vomiting, urine nation changes, abdominal pain or changes bowel movements. He is on Xarelto chronically. Denies feeling lightheaded. Denies any swelling of his legs. No sick contacts reported but does have grandchildren. No other complaints or concerns reported at this time. [facility] Medical History Nonobstructive atherosclerosis of coronary artery Myxomatous mitral valve regurgitation Nonrheumatic mitral (valve) prolapse Atypical atrial flutter Prostate cancer Paroxysmal atrial fibrillation Essential (primary) hypertension Obstructive sleep apnea Hypersomnia, unspecified Depression Dyslipidemia Home Medications ???Medication ???Instructions ???Recorded ???Last Taken ???Type lorazepam 0.5 mg tablet 0.25 tab PO DAILY PRN PRN Anxiety 10/06/13 04/22/17 History multivitamin with folic acid 400 1 tab PO DAILY 10/06/13 04/23/17 History mcg tablet biotin 1 mg capsule 1 mg PO QDAY 07/05/17 Unknown History bupropion HCl 300 mg 24 hr tablet, 300 mg PO QAM 07/05/17 Unknown History extended release triamcinolone acetonide 55 mcg 2 spray intranasal QDAY 09/24/17 Unknown History nasal spray aerosol (Nasacort) coenzyme Q10 100 mg capsule 100 mg PO DAILY 08/21/19 Unknown History zinc 50 mg tablet 50 mg PO DAILY 08/23/20 Unknown History biotin 5 mg capsule 5 mg PO DAILY 10/16/22 Unknown History atorvastatin 40 mg tablet 40 mg PO QHS #90 TABLETS 11/04/23 Unknown Rx losartan 50 mg tablet 50 mg PO DAILY #90 tabs 01/08/24 Unknown Rx rivaroxaban 20 mg tablet (Xarelto) 20 mg PO DAILY #90 tabs 02/14/24 Unknown Rx metoprolol tartrate 25 mg tablet 25 mg PO BID #60 tabs 03/30/24 Unknown Rx Allergy/AdvReac Type Severity Reaction Status Date / Time hydrocodone (From Vicodin) Allergy Mild Nausea Verified 12/12/23 10:00 oxycodone (From Percocet) AdvReac Intermediate nausea Verified 12/12/23 10:00 Family History Father , age 89 CAD (coronary artery disease) Hx of CABG, Onset Age: 68 Uncle CAD (coronary artery disease) Mother Alzheimers disease Surgical History H/O transurethral destruction of bladder lesion (10/2013) History of cardioversion (04/30/17) History of left heart catheterization (06/23/08) Macular hole repair Hx of cataract surgery Retinal detachment PE Tube right ear H/O prostate biopsy Left knee meniscus repair H/O inguinal hernia repair History of mitral valve repair (10/04/00) Social History household members: spouse housing: house current occupational status: employed current occupation: [employer] pets and animals: Yes pets and animals: dog(s) Smoking Status: Former smoker second hand exposure: No alcohol intake: current alcohol intake frequency: a few times a week Alcohol type: beer and wine substance use type: does not use ROS ROS ED Constitutional Constitutional ED: Denies chills or fever(s) ENT ENT ED: Reports sore throat and other Details: Hoarse voice Cardiovascular Cardiovascular: Reports racing heartbeat; Denies chest pain Respiratory/Chest Respiratory/Chest: Reports cough; Denies dyspnea or dyspnea on exertion Gastrointestinal Gastrointestinal: Denies abdominal pain, melena, nausea or vomiting Genitourinary Genitourinary ED: Denies dysuria Musculoskeletal (more content not included)... [facility] L501.4020on 03-30-2024 TROPONIN-I HS 16 pg/mL Normal 3.0-78.0 [facility] Comment on above: Result Comment: Plea se Note: New Test Units and Gender Specific Reference Ranges. For more information see Policy Stat Procedure [place] High Sensitivity Troponin (TNIH) and attachments. Performed By: #### L 501.9520 #### [facility] [address] [place], [address] L501.5425on 03-30-2024 TROPONIN-I HS 15 pg/mL Normal 3.0-78.0 [facility] Comment on above: Order Comment: 1Y Result Comment: Plea se Note: New Test Units and Gender Specific Reference Ranges. For more information see Policy Stat Procedure [place] High Sensitivity Troponin (TNIH) and attachments. Performed By: #### L 501.9520 #### [facility] [address] [place], [address] M100.678on 03-30-2024 M100.678 Pending SARS-CoV-2 (COVID 19) Negative INFLUENZA A Negative INFLUENZA B Negative RSV PCR Negative Normal [facility] Comment on above: Performed By: #### L 501.9520 #### [facility] [address] [place], [address] Prothrombin Time w/INRon INR Coag (PPP) [Relative time] 1.1 {INR} Normal [facility] Comment on above: Performed By: #### L 501.9520 #### [facility] [address] [place], [address] PT Coag (PPP) [Time] 14.0 s Normal 11.7-14.9 [facility] Comment on above: Performed By: #### L 501.9520 #### [facility] [address] [place], [address] Thyroid Stim Hormone (TSH)on 03-30-2024 TSH 1.470 uIU/mL Normal 0.358-3.740 [facility] Comment on above: Performed By: #### L 501.9520 #### [facility] [address] [place], [address] URINALYSIS, REFLEX MICROSCOP ICon 05-13-2023 Bilirubin Ql (U) Negative Negative [facility] Clarity (Unsp spec) Clear Clear [facility] Color (U) Dark Yellow Abnormal Yellow [facility] Glucose Test strip (U) [Mass/Vol] Negative Trace, Negative [facility] Hemoglobin Ql (U) Negative Negative, Trace [facility] Ketones Ql (U) Negative Negative, Trace [facility] Leukocyte esterase Test strip Ql (U) Negative Negative, 25 [place]/uL [facility] Nitrite Ql (U) Negative Negative [facility] pH (U) 8.0 [pH] 5.0 - 8.0 [facility] Protein (U) [Mass/Vol] Negative Trace, Negative [facility] Specific gravity (U) [Rel density] 1.018 1.005 - 1.030 [facility] Urobilinogen Ql (U) Negative Negative [facility] US ABD AORTAon 01-22-2023 [facility] URINALYSIS, REFLEX MICROSCOP ICon 03-19-2022 Bilirubin Ql (U) Negative Negative [facility] Clarity (Unsp spec) Clear Clear [facility] Color (U) Yellow Yellow [facility] Glucose Test strip (U) [Mass/Vol] Negative Negative [facility] Hemoglobin Ql (U) Negative Negative [facility] Ketones Ql (U) Negative Negative [facility] Leukocyte esterase Test strip Ql (U) Negative Negative [facility] Nitrite Ql (U) Negative Negative [facility] pH (U) 7.0 [pH] 5.0 - 8.0 [facility] Protein (U) [Mass/Vol] Negative Negative [facility] Specific gravity (U) [Rel density] 1.015 1.005 - 1.030 [facility] Urobilinogen Ql (U) Negative Negative [facility] ALLIED HEALTHon 06-15-2021 ALLIED HEALTH HNO ID: [id number] Author: RT Marques(R) Service: Radiology Author Type: Senior Project Leader/Team Lead Type: Allied Health Filed: 06/15/2021 1:58 PM Note Text: Radiology Service Progress Note PATIENT NAME: Ryley Mckeon DATE OF SERVICE: June 15, 2021 TIME: 1:57 PM PATIENT IDENTITY VERIFICATION COMPLETED USING TWO (2) IDENTIFIERS: Name and Date of confirmed by patient verbally. FALL SCREENING: Has the patient had 2 falls in the last year or 1 fall with injury or currently using an Ambulatory Assistive Device (Walker, Cane, Wheelchair, Crutches, etc.)? No PATIENT GENDER DATA: Male PATIENT RELEVANT IMPLANT DATA REVIEWED: Not Applicable RADIOLOGY DEPARTMENT: General X-ray: Exam(s) Completed: Pelvis X-Ray: Pelvis General AP PERIPHERAL IV DATA: Not applicable SIGNED BY: RT Marques(R) June 15, 2021 1:57 PM [facility] ANES POSTPROC EVALon 022 ANES POSTPROC EVAL HNO ID: [id number] Author: Miguel Melara MD Service: Anesthesiology Author Type: Anesthesiologist Type: Anesthesia Postprocedure Evaluation Filed: 06/15/2021 3:28 PM Note Text: POST ANESTHESIA EVALUATION NOTE : 1945 Procedure Summary Date: 06/15/21 Room / Location: SP OR01 / [facility] OR Anesthesia Start: 1206 Anesthesia Stop: 1323 Procedures: INSERTION TRANSPERINEAL NEEDLES OR CATHETERS PROSTATE FOR INTERSTITIAL RADIOELEMENT APPLICATION (N/A Prostate) ULTRASOUND TRANSRECTAL PROSTATE (N/A Prostate) APPLICATION INTERSTITIAL RADIATION SOURCE COMPLEX (N/A Prostate) ULTRASONIC GUIDANCE FOR INTERSTITIAL RADIO ELEMENT APPLICATION (N/A Prostate) Diagnosis: Malignant neoplasm of prostate (HCC) (Malignant neoplasm of prostate (HCC) [C61]) Surgeons: Kayleen Bell MD Responsible Provider: Miguel Melara MD Anesthesia Type: general ASA Status: 3 Anesthesia Type: general Airway Type: ETT Last Vitals Vitals Value Taken Time BP 134/79 06/15/21 1500 Temp 36 ?C (96.8 ?F) 06/15/21 1430 HR SpO2 57 06/15/21 1506 Resp 22 06/15/21 1430 SpO2 98 % 06/15/21 1506 Vitals shown include unvalidated device data. Post Anesthesia Patient Status Patient Evaluation: bedside. Anticipated Disposition: phase 2 then home. Neurological Status: aware and responsive. Pulmonary Status: breathing comfortably on room air Airway Control: returned to baseline unsupported. Cardiovascular Status: stable. Pain Management: clinically adequate Postoperative Hydration: acceptable. Intraoperative Events: no significant anesthesia events Post Operative Nausea/Vomiting Status: no significant post operative nausea or vomiting Anesthetic Observations: Recommendation: continue current plan of care. Anesthesia Observations No Documentation SIGNATURE: Miguel Melara MD PATIENT NAME: Ryley Mckeon DATE: June 15, 2021 TIME: 3:20 PM CSN: [id number] [facility] ANES PRE-OPon 06-15-2021 ANES PRE-OP HNO ID: [id number] Author: Miguel Melara MD Service: Anesthesiology Author Type: Anesthesiologist Type: Anesthesia Preprocedure Evaluation Filed: 06/15/2021 11:53 AM Note Text: ANESTHESIOLOGY DAY OF SURGERY NOTE : 1945 Procedure Information Date/Time: 06/15/21 1130 Procedures: INSERTION TRANSPERINEAL NEEDLES OR CATHETERS PROSTATE FOR INTERSTITIAL RADIOELEMENT APPLICATION (N/A Pelvis) ULTRASOUND TRANSRECTAL PROSTATE (N/A Pelvis) CYSTOSCOPY FLEXIBLE (N/A Pelvis) APPLICATION INTERSTITIAL RADIATION SOURCE COMPLEX (N/A Pelvis) ULTRASONIC GUIDANCE FOR INTERSTITIAL RADIO ELEMENT APPLICATION (N/A Pelvis) Location: [facility] OR01 / [facility] OR Surgeons: Kayleen Bell MD Estimated body mass index is 23.11 kg/m? as calculated from the following: Height as of this encounter: 172.7 cm (5' 8). Weight as of this encounter: 68.9 kg (152 lb). Most recent hematocrit and potassium results: Hematocrit 34.9 10/18/2000 Potassium 4.4 10/18/2000 Relevant Problems ANESTHESIA (+) LISSETTE (obstructive sleep apnea) CARDIO (+) Atrial flutter (HCC) (+) CAD (coronary artery disease) (+) HTN (hypertension) (+) MVP (mitral valve prolapse) (+) Persistent atrial fibrillation (HCC) (+) Premature ventricular contractions (PVCs) (VPCs) (+) Sinus node dysfunction (HCC) PULMONARY (+) LISSETTE (obstructive sleep apnea) I - PHYSICAL EVALUATION AIRWAY Patient intubated: No. Tracheostomy tube not present Mallampati: II. TM distance: >3 FB. Neck ROM: full ROM without neurological symptoms. Mouth opening: adequate. Short neck: no. Thick neck: no DENTAL Dental findings: teeth intact. Additional exam findings: yes. Other findings: pt. takes acetaminophen when needed at home without problem gum recession, no loose teeth no reflux x one week. II - ANESTHESIA PLAN ASA Score: 3 Anesthetic Plan: general Airway type: LMA The patient is not a current smoker. NPO Status: adequate Monitoring plan: standard ASA. Postoperative analgesic plan: parenteral or oral opioids. Informed Consent Anesthetic risks, benefits, alternatives, personnel and consent discussed: yes. Patient / Responsible [employer] agrees to proceed: yes Patient / Surrogate agrees to blood products: Yes Significant changes in the patient condition since the History and Physical, not otherwise documented in primary service progress note: no. Potential Anesthesia issues that may suggest increased risk of complications or contraindication to planned procedure: none. Vitals Value Taken Time BP 137/81 06/15/21 1112 Pulse 63 06/15/21 1112 Resp 16 06/15/21 1112 Temp 36.8 ?C (98.2 ?F) 06/15/21 1112 SpO2 93 % 06/15/21 1112 Facility-Administered Medications as of 06/15/2021 Medication Dose Route Frequency - lidocaine 10 mg/mL (1 %) 1-2 mg injection (XYLOCAINE) 0.1-0.2 mL INTRADERMAL PRN - lactated ringers iv infusion 5-30 mL/hr INTRAVENOUS CONTINUOUS - ceFAZolin iv piggyback 2 g in D5W 100 mL (ANCEF) 2 g INTRAVENOUS Pre-Op Once - [COMPLETED] sodium phosphate-sodium bisphosphate 133 mL enema (FLEET) 133 mL RECTAL ONCE - acetaminophen 1,000 mg tab(s) (TYLENOL) 1,000 mg ORAL ONCE - promethazine 12.5 mg tab(s) (PHENERGAN) 12.5 mg ORAL Pre-Op Once Outpatient Medications as of 06/15/2021 Medication Sig - coenzyme Q10 (COQ-10) 100 mg cap capsule Take 100 mg by mouth twice daily. - ZINC ACETATE ORAL Take by mouth. - triamcinolone acetonide (NASACORT NASAL) Use in the nose once daily. - atorvastatin (LIPITOR) 40 mg tablet Take 40 mg by mouth once daily. - buPROPion XL (WELLBUTRIN XL) 300 mg 24 hr tablet Take 1 tablet by mouth once daily. - losartan (COZAAR) 25 mg tablet Take 50 mg by mouth once daily. - BIOTIN ORAL Take 5,000 mcg by mouth once daily. - LORazepam (ATIVAN) 0.5 mg tab Take 0.25 mg by mouth as needed (anxiety). - MULTIVITAMIN TAB Take one(1) tablet by mouth daily. - iv contrast (will be provided with radiology test) MRI Prostate Inject, intravenously, once for 1 dose. No IV access, insert saline lock prior to the beginning of sedation, infusion, injection of imaging exam. Discontinue saline lock post exam. If Pt. has a central line or IVAD, may access for administration according to line specific nursing protocol. Once exam is complete flush line and de-access according to line specific nursing protocol in the MR contrast administration guidelines link. - rivaroxaban (XARELTO) 20 mg tablet Take 20 mg by mouth daily with dinner. I have interviewed and examined the patient. I have reviewed the medical record and/or the pre-anesthesia evaluation, pertinent labs, and test results. This contains updated information obtained within 48 hours of Surgery/Procedure. SIGNATURE: Miguel Melara MD PATIENT NAME: Ryley Mckeon DATE: June 15, 2021 TIME: 11:45 AM CSN: [id number] [facility] HISTORY PHYSICALon HISTORY PHYSICAL HNO ID: [id number] Author: Monroe Serra PA-C Service: Radiation Oncology Author Type: Physician Modern Dancer Type: HANDP Filed: 06/15/2021 11:32 AM Note Text: UPDATED HISTORY AND PHYSICAL EXAMINATION SERVICE DATE: 06/15/2021 SERVICE TIME: 10:54 AM SERVICE: Radiation Oncology PHYSICAL EXAM MUST BE COMPLETED ON ADMISSION The History and Physical (completed in the past 30 days) has been reviewed and the patient has been examined. The contents accurately reflect the patient's condition with the following additions or revisions since the HANDP was completed. Patient denies any changes to health since last examination. Planned procedure for today is INSERTION TRANSPERINEAL NEEDLES OR CATHETERS PROSTATE FOR INTERSTITIAL RADIOELEMENT APPLICATION, ULTRASOUND TRANSRECTAL PROSTATE, CYSTOSCOPY FLEXIBLE, APPLICATION INTERSTITIAL RADIATION SOURCE COMPLEX ULTRASONIC GUIDANCE FOR INTERSTITIAL RADIO ELEMENT APPLICATION Medication reconciliation list reviewed in [employer]. Past medical history, past surgical history, social history and family history reviewed and updated in [employer]. ALLERGIES Allergen Reactions - Acetaminophen Vomiting - Hydrocodone Vomiting - Oxycodone Vomiting - Percocet [Oxycodone* GI Upset BP 137/81 Pulse 63 Temp 36.8 ?C (98.2 ?F) (Temporal) Resp 16 Ht 172.7 cm (5' 8) Wt 68.9 kg (152 lb) SpO2 93% BMI 23.11 kg/m? Examination indicates no changes. On examination today: Lungs: Clear to auscultation bilaterally. Heart: RRR, Normal S1/S2, No significant murmurs, rubs, or thrills appreciated. Abdomen: BS+ in all quadrants, abdomen is soft, non tender, and without guarding. Assessment:Malignant neoplasm of prostate Plan: INSERTION TRANSPERINEAL NEEDLES OR CATHETERS PROSTATE FOR INTERSTITIAL RADIOELEMENT APPLICATION, ULTRASOUND TRANSRECTAL PROSTATE, CYSTOSCOPY FLEXIBLE, APPLICATION INTERSTITIAL RADIATION SOURCE COMPLEX ULTRASONIC GUIDANCE FOR INTERSTITIAL RADIO ELEMENT APPLICATION TEACHING PROVIDER (Physician/PA/CLOTH WASHER OPERATOR) NOTE OF PERSONAL INVOLVEMENT IN CARE: I have personally seen and examined the patient and performed the medical decision-making components. I have reviewed the Physician Modern Dancer (PA) Student's documentation and verified the findings in the note as written. Any additions or changes are noted in bold/italics. Signature: Monroe Serra Date: 06/15/2021 Time: 11:31 AM This HANDP can be found in the Electronic Medical Record dated 06/13/2021 by Codi Zavala APRN.HOME HEALTH CLINICIAN . SIGNATURE: Shirin Barrett PATIENT NAME: Ryley Mckeon DATE: June 15, 2021 TIME: 10:54 AM [facility] NURSING PROGon 06-15-2021 NURSING PROG HNO ID: [id number] Author: Aixa Dickens, TIMMY Service: Abstract Author Type: Registered Nurse Type: Nursing Progress Note Filed: 06/15/2021 3:31 PM Note Text: Nursing Progress Note Patient Name: Ryley Mckeon Patient Location: [facility] PO* Daily Note: patient stood and voided 600cc of light red urine. No clots or seeds noted on scan. Iv removed and he dressed for home. This note was completed by: Aixa Dickens [facility] OPERATIVE NOon 06-15-2021 OPERATIVE NO HNO ID: [id number] Author: Kayleen Bell MD Service: Urology Author Type: Physician Type: Operative Report Filed: 06/15/2021 1:11 PM Note Text: OPERATIVE REPORT Name: Ryley Mckeon : 1945 CSN#: [id number] Date: 06/15/2021 Pre-operative diagnosis: Localized prostate cancer Post-operative diagnosis: same Procedure: 1. Ultrasound guidance, prostate 2. Prostatic contouring for prostate brachytherapy treatment planning 3. I-125 permanent prostatic seed implantation Surgeon: Kayleen Bell MD (Dr. Mccurdy will dictate his procedure separately) Anesthesia: general Incision/Procedure Start Time: 12:23 PM Incision Close/Procedure End Time: 1:08 PM Specimens: none Drains/catheters: none EBL: none Complications: none OR Findings 06/15/2021: Prostate volume 36.37g Number of sources 97 Number of needles 31 Indication: Ryley Mckeon is a 76 year old male who presents for LDR brachytherapy with I-125 for treatment of his localized prostate cancer (iPSA 7.27, T1c, [place] score 3+4) Operative note: The patient was identified and given a pre-operative antibiotic. He was then taken to the operating room where a time out and team huddle were performed. A general anesthetic was then successfully induced and he was positioned in the dorsal lithotomy. All pressure points were padded. A standard sterile perineal AND rectal preparation were done. An US probe was passed atraumatically per rectum and step sections of the prostate were captured and sent to our computer software for contouring and the creation of an intra-operative treatment plan. The plan was completed by Dr. Mccurdy and his physicist. Using a standard fixed trans-perineal template technique a total of 97 sources were placed using 31 needles. I performed ultrasound needle guidance for the radiation oncologist who inserted the I-225 sources. At the conclusion of the procedure there was no significant gross hematuria and cystoscopy/catheter irrigation was therefore not required. He was awoken from his anesthetic and returned to the PACU in stable condition. Kayleen Bell MD [facility] [place] [facility] OPERATIVE NO HNO ID: [id number] Author: Sanford Mccurdy MD Service: Radiation Oncology Author Type: Physician Type: Operative Report Filed: 06/15/2021 1:11 PM Note Text: [place] [id number] [place] OUTPATIENT OPERATIVE REPORT NAME: [facility] [id number] DATE: June 15, 2021 AGE: [age] year old SURGEON 1: Sanford Mccurdy M.D. SURGEON 2: Kayleen Bell M.D. START TIME: 1223 FINISH TIME: 1:08 PM OPERATION: I-125 seed implant of the prostate. ANESTHESIA: General PREOPERATIVE DIAGNOSIS: Adenocarcinoma of the prostate, initial PSA of 7.27 ng/mL, Annette of 3+4=7. POSTOPERATIVE DIAGNOSIS: same OPERATIVE INDICATIONS: Prostate Cancer OPERATIVE FINDINGS: Proper anatomy exists for the execution of the implant. OPERATIVE PROCEDURE: Patient was brought to the operating room and general anesthesia was induced. Following this, the patient was placed in exaggerated dorsal lithotomy position, the scrotum was retracted from the perineal skin using foam tape, the perineal skin was shaved, the rectum was irrigated with sterile saline, 20 cc of ultrasound-conducting gel was given as a rectal suppository, and the perineal skin was prepared using iodine scrub solution. Following this, the patient received a transrectal ultrasound probe transrectally and satisfactory images of the prostate were obtained. These images were then imported into a treatment-planning computer and a customized treatment plan was generated, calling for 97 sources (16 were loose and 81 were linked/stranded). These sources that were loaded into needles according to the treatment plan were then inserted and deployed with urology participation. Total activity in the patient was, therefore, 42.01 U. Following insertion of sources, the patient was not noted to require a cystoscopy. He was therefore taken out of exaggerated dorsal lithotomy position to the recovery room in satisfactory condition. Considerable time and effort was spent to accomplish the above described procedure. Based on published results from our institution (Int J Radiat Oncol Biol Phys, 2000 Nov 1:48(4):1241-4) that there is a significant improvement in dose coverage of the prostate when both the ultrasound study and treatment planning are combined in the same procedure as opposed to the traditional approach of pre-planning followed several weeks by seed implantation, I elected to perform the single step method. This method required coordination and substantial interaction among myself, the urologist, physicist and special procedure brachytherapy nuclear chemistry technician for: volume determination, needle placement, treatment planning, seed preparation (stranded and single) and seed insertion. ESTIMATED BLOOD LOSS: 10 cc. DRAINS: None. SPECIMENS: None. COMPLICATIONS: None. ATTESTATION: I was present and involved in all aspects of the treatment planning and execution of the treatment plan. Electronically signed on June 15, 2021 at 1:10 PM by Sanford Mccurdy M.D. [facility] XR PELVIS 1V APon 06-15-2021 XR PELVIS 1V AP * * *Final Report* * * DATE OF EXAM: Jun 15 2021 1:57PM [facility] 5239 - XR PELVIS 1V AP / PROCEDURE REASON: Foreign body in tract * * * * Physician Interpretation * * * * RESULT: EXAMINATION: XR PELVIS 1V AP HISTORY: PACU PORT POST BRACHYTHERAPY Foreign body in tract. TECHNIQUE: XR PELVIS 1V AP Laterality: NOT APPLICABLE Number of different views (projections): 1 M: XB_1 RESULT: There are multiple prostate brachytherapy seeds, which appear confined to the prostate gland. There is osteopenia. Degenerative changes are seen within the lower lumbar spine. IMPRESSION: Prostate brachytherapy seeds. Transcribed Using Voice Recognition Transcribe Date/Time: Jun 15 2021 1:59P Dictated by: SARAH PEÑA MD This examination was interpreted and the report reviewed and electronically signed by: SARAH PEÑA MD on Jun 15 2021 2:00PM EST [id number] [facility] HISTORY PHYSICALon HISTORY PHYSICAL HNO ID: [id number] Author: Codi Zavala APRN.HOME HEALTH CLINICIAN Service: ? Author Type: Nurse Practitioner Type: HANDP Filed: 06/14/2021 9:49 AM Note Text: HISTORY AND PHYSICAL EXAMINATION SERVICE DATE: 06/13/2021 SERVICE TIME: 10:45 am PRIMARY CARE PHYSICIAN: Johnnie Ross MD REASON FOR VISIT: Ryley Mckeon is a 76 year old male who is scheduled for Procedure(s): INSERTION TRANSPERINEAL NEEDLES OR CATHETERS PROSTATE FOR INTERSTITIAL RADIOELEMENT APPLICATION (N/A) ULTRASOUND TRANSRECTAL PROSTATE (N/A) CYSTOSCOPY FLEXIBLE (N/A) APPLICATION INTERSTITIAL RADIATION SOURCE COMPLEX (N/A) ULTRASONIC GUIDANCE FOR INTERSTITIAL RADIO ELEMENT APPLICATION (N/A) at the request of Dr. Kayleen Bell for consultation. My final recommendation will be communicated back to the requesting physician by way of shared medical record or letter. Subjective The patient has the following: ACTIVE PROBLEM LIST S/P Mitral Valve Repair Mvp (Mitral Valve Prolapse) Correction (Current) Use of Anticoagulants At Risk for Stroke Persistent Atrial Fibrillation (Hcc) Bradycardia Premature Ventricular Contractions (Pvcs) (Vpcs) Atrial Flutter (Hcc) Sinus Node Dysfunction (Hcc) Malignant Neoplasm of Prostate (Hcc) Anxiety and Depression Lissette (Obstructive Sleep Apnea) Cad (Coronary Artery Disease) Htn (Hypertension) Dyslipidemia Tricuspid Insufficiency Systolic Dysfunction COVID-19 Immunization Status COVID-19 VACCINE (Series Information) Completed 02/07/2021 Imm Admin: COVID-19 vaccine, full dose (MODERNA) 06/06/2020 Imm Admin: COVID-19 vaccine, full dose (MODERNA) 2020 Imm Admin: COVID-19 vaccine, full dose (MODERNA) CHIEF COMPLAINT: Pre-op evaluation HPI: 76 year old male here for pre-op evaluation for prostate seed implantation scheduled on 06/15. Had TURP in 2013 and diagnosed cancer that was low grade. He had genetic testing done for this. PSA had increased leading to prostate MRI 12/2020 and prostate biopsy 01/2021 found to be positive and was recommended to have treatment. Following with in urology and in radiology oncology. REVIEW OF SYSTEMS: General: No weight loss, malaise or fevers. Neurological: No history of TIA's, stroke, OPERATOR TECHNICIAN tumor, impaired sensorium, hemiplegia, paraplegia or quadraplegia. No neurological symptoms or problems. Respiratory: Positive for: obstructive sleep apnea. Negative for: asthma, COPD, dyspnea, orthopnea and tobacco use. Cardiovascular: Sinus node dysfunction, PVCs Positive for: arrhythmia (Atrial flutter), atrial fibrillation (Last cardioversion 2017), CAD (Minimal changes to arteries based on cardiac cath 2008. ), hyperlipidemia (on rx), hypertension (on rx) and murmur/valvular heart disease (Mitral valve repair 2000. Last echo 2017.) Negative for: angina, chest pain and DVT/PE. GI: Positive for: heartburn (managed with diet) Negative for: abdominal pain, dysphagia, GERD, liver disease, nausea and vomiting. : See HPI, s/p TURP Negative for: renal failure. Endocrine: No history of diabetes. Has not taken steroids within the past 30 days. No history of endocrinological symptoms or problems. 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 Been doing this for a year. Was having significant bruising on hands.). Negative for: anemia. Oncology: Prostate cancer see HPI Psych: Positive for: anxiety (taking 1/2 tab of ativan occasionally) and depression (on rx). Musculoskeletal: Positive for: joint pain (Left hand pain, mostly in thumb). Skin: Negative for lesions, rash and itching. 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 Langston ([facility]) in 2008, considered to be benign PVCs; improved with beta-michell but developed fatigue, then treated with verapamil - Prostate cancer (HCC) followed by Dr. Thomas - Retinal detachment, left 01/2016 - Sinus bradycardia - Sinus node dysfunction (HCC) probably in part due to recurrent atrial (more content not included)... Normal [facility] PSA, Freeon 04-27-2021 PSA, Diagnostic 6.63 ng/mL High <2.60 [facility] Comment on above: Performed By: #### P SATF #### [facility] Routine Lab [address], [place] [address] PSA, Percent Free DO NOT OR 12 % Normal [facility] Comment on above: Performed By: #### P SATF #### [facility] Routine Lab [address] [place], [place] [address] MRI PROSTATE WO/W IVCONon MRI PROSTATE WO/W IVCON * * *Final Report* * * DATE OF EXAM: Dec 22 2020 2:54PM [facility] 0751 - MRI PROSTATE WO/W IVCON / PROCEDURE REASON: Malignant neoplasm of prostate (HCC) * * * * Physician Interpretation * * * * RESULT: EXAMINATION: MRI PELVIS WITHOUT AND WITH IV CONTRAST (MULTIPARAMETRIC PROSTATE MRI) IV CONTRAST CLINICAL HISTORY: 75 year old with prostate cancer on active surveillance. Previous biopsy: Positive, Grade Group 2 (GS 3 + 4) 03/25/2020 left lateral mid. 3+3 left lateral apex, left lateral base, and left mid PSA: 7.3 ng/mL (10/03/2020) ; Prior therapy: None. TURP in 2013 COMPARISON: None TECHNIQUE: Multiparametric MRI of the prostate and pelvis performed on a 3T scanner utilizing phase pelvic coil. Sequences obtained: multiplanar T2-WI with small FOV; Axial DWI with multiple B-values and creation of ADC-maps; DCE T1-weighted images through the prostate obtained before, during and after the administration of intravenous gadolinium; prostate dimensions and volume were obtained using a semi-automated software ([employer]). CONTRAST: IV: cc of (Dotarem). RESULT: Prostate: Dimensions: 5.4 x 4.3 x 4.9 cm corresponding to a volume of approximately 46 cc. A TURP defect is present. Post biopsy hemorrhage: Absent Peripheral zone: Lesion #1: Location: left mid posterolateral peripheral zone Greatest dimension: 0.6-cm (series:7; image:16) T2-WI: Circumscribed, homogenous moderate hypointense focus/mass (score 4) DWI/ADC: Focal markedly hypointense on ADC and markedly hyperintense on high b-value DWI (score 4) DCE: Negative Extra-prostatic extension: Probably absent (capsule contact < 1.5 cm; no capsule irregularity or bulge) PI-RADS assessment category: 4 Transition zone: There is transition zone hypertrophy, without focal abnormalities suspicious for clinically significant disease (PI-RADS 2). Neurovascular bundle: Unremarkable. Seminal vesicles: Unremarkable. Adjacent Organ Involvement: Not applicable. Lymph nodes: No enlarged pelvic lymph nodes. Bladder: Unremarkable. Pelvic bones: No suspicious pelvic osseous lesions. Other Findings: None. IMPRESSION: 0.6 cm left mid peripheral zone PI-RADS 4 lesion (PI-RADS 4: Clinically significant cancer is likely). No definite extraprostatic extension. No lymphadenopathy or suspicious osseous lesion. Number of targets created for MR/US fusion biopsy: Peripheral zone: 1 Transition zone: 0 If present, targets were numbered in order of level of suspicion for clinically significant prostate cancer (Annette score 3 + 4 or higher). PI-RADS v2.1 Assessment Categories: PI-RADS 1: Clinically significant cancer is highly unlikely PI-RADS 2: Clinically significant cancer is unlikely PI-RADS 3: Clinically significant cancer is equivocal PI-RADS 4: Clinically significant cancer is likely PI-RADS 5: Clinically significant cancer is highly likely (V.05) Transcribed Using Voice Recognition Transcribe Date/Time: Dec 23 2020 1:13P Dictated by: NATASHA MAY MD This examination was interpreted and the report reviewed and electronically signed by: NATASHA MAY MD on Dec 23 2020 4:47PM EST [id number] [facility] Lab Report: Basic Metabolic Profile (BMP)on 04-29-2017 Anion gap 6 mmol/L Invalid Interpretation Code 5-15 [employer] Work Phone: BUN/Creatinine Ratio 17.2 RATIO Invalid Interpretation Code 01-25 [employer] Work Phone: Calcium 9.0 mg/dL Invalid Interpretation Code 8.5-10.1 [employer] Phone: [phone] Chloride 104 mmol/L Invalid Interpretation Code 98-107 [employer] Work Phone: [phone] CO2 32.0 mmol/L Invalid Interpretation Code 21.0-32.0 [employer] Phone: [phone] Creatinine 0.82 mg/dL Invalid Interpretation Code 0.70-1.30 [employer] Phone: [phone] eGFR (non-black) 120 mL/min/{1.73_m2} Invalid Interpretation Code >60 [employer] Work Phone: [phone] eGFR (non-black) 99 mL/min/{1.73_m2} Invalid Interpretation Code >60 [employer] Work Phone: [phone] Glucose 188 mg/dL High 70-110 [employer] Phone: [phone] Potassium 4.1 mmol/L Invalid Interpretation Code 3.5-5.1 [employer] Phone: [phone] Sodium 142 mmol/L Invalid Interpretation Code 136-145 [employer] Phone: [phone] Urea nitrogen 14 mg/dL Invalid Interpretation Code 7-18 [employer] Phone: [phone] Office Visiton 07-10-2016 Documentation of current medications (procedure) Done Invalid Interpretation Code [employer] Phone: [phone] Fall risk assessment No Invalid Interpretation Code [employer] Phone: [phone] Replaced Document: Edgarnataliia Svetlana CG Observationson 07-10-2016 electrocardiogram interpretation Atrial Rhythm P:QRS - 1:1, Abnormal P axis, H Rate 64WITHIN NORMAL LIMITS Invalid Interpretation Code [facility] Phone: [phone] GE use only - for LinkLogic import when terms are not otherwise specified 421 ms Invalid Interpretation Code [facility] Phone: [phone] P wave axis, electrocardiogram -31 deg Invalid Interpretation Code [facility] Phone: [phone] MA interval, electrocardiogram 194 ms Invalid Interpretation Code [facility] Phone: [phone] Pulse (Heart Rate) 64 /min Invalid Interpretation Code [facility] Work Phone: [phone] QRS axis, electrocardiogram 82 deg Invalid Interpretation Code [facility] Work Phone: [phone] QRS duration, electrocardiogram 96 ms Invalid Interpretation Code [facility] Work Phone: [phone] QT interval, electrocardiogram new path ms Invalid Interpretation Code [facility] Work Phone: [phone] T wave axis, electrocardiogram 69 deg Invalid Interpretation Code [facility] Work Phone: [phone] Lab Report: Lipid Profileon 07-09-2016 Cholesterol 126 mg/dL Invalid Interpretation Code 200 [facility] Work Phone: [phone] HDL Cholesterol 58 mg/dL Invalid Interpretation Code [facility] Work Phone: [phone] LDL Cholesterol 62 mg/dL Invalid Interpretation Code 0-130 [facility] Phone: [phone] Triglyceride 32 mg/dL Invalid Interpretation Code [facility] Work Phone: [phone] very low density lipoproteins 6 mg/dL Invalid Interpretation Code 5-40 [facility] Work Phone: [phone] Lab Report: Liver Profileon 07-09-2016 Alanine aminotransferase (ALT) 36 U/L Invalid Interpretation Code 12-78 [facility] Phone: [phone] Albumin 3.8 g/dL Invalid Interpretation Code 3.4-5.0 [facility] Phone: [phone] Alkaline phosphatase (ALP) 90 U/L Invalid Interpretation Code 45-117 [facility] Work Phone: [phone] Aspartate aminotransferase (AST) 21 U/L Invalid Interpretation Code 15-37 [facility] Phone: [phone] Bilirubin (direct) 0.16 mg/dL Invalid Interpretation Code 0.00-0.30 [facility] Work Phone: [phone] Bilirubin (total) 0.60 mg/dL Invalid Interpretation Code 0.20-1.00 [facility] Work Phone: [phone] Globulin 2.6 g/dL Invalid Interpretation Code 2.3-3.5 [facility] Phone: [phone] Protein 6.4 g/dL Invalid Interpretation Code 6.4-8.2 [facility] Work Phone: Clinical Lists Update: Prelo crtt 07-05-2016 Left ventricular Ejection fraction 65 % Invalid Interpretation Code [facility] Work Phone: Office Visiton 06-29-2014 cardiac risk group B Invalid Interpretation Code [facility] Work Phone: [phone] General cardiovascular disease 10Y risk [#] [place] no 6 % Invalid Interpretation Code [facility] Work Phone: [phone] Tobacco smoking status NHIS Tobacco smoking status NHIS Invalid Interpretation Code [facility] Work Phone: [phone] Replaced Document: [facility] E CG Observationson 05-20-2012 Pulse (Heart Rate) 414 ms Invalid Interpretation Code [facility] Work Phone: [phone] Office Visiton 05-22-2011 Alcoholism counseling (procedure) no Invalid Interpretation Code [facility] Work Phone: Lab Report: PSAon 05-08-2011 prostate specific antigen (PSA) screening 3.9 ng/mL Normal 0.0-4.0 [facility] Work Phone: Vital Signs Date Time Vital Sign Value Performing Clinician Facility 01-19-2025 10:10-0400 Body height 170.[address] Johnnie Ross MD Work Phone: [facility] 01-19-2025 10:10-0400 Body mass index (BMI) [Ratio] 23.3 kg/m2 Dr. Johnnie Ross MD Work Phone: [facility] 01-19-2025 10:10-0400 Body weight 67.[address] Johnnie Ross MD Work Phone: [facility] 01-19-2025 10:10-0400 Diastolic blood pressure 80 mm[Hg] Dr. Johnnie Ross MD Work Phone: [facility] 01-19-2025 10:10-0400 Heart rate 58 /min Dr. Johnnie Ross MD Work Phone: [facility] 01-19-2025 10:10-0400 Respiratory rate 16 /min Dr. Johnnie Ross MD Work Phone: [facility] 01-19-2025 10:10-0400 Systolic blood pressure 127 mm[Hg] Dr. Johnnie Ross MD Work Phone: [facility] 11-10-2024 14:54-0400 Body mass index (BMI) [Ratio] 23.04 kg/m2 Somjita Warren CLOTH WASHER OPERATOR.HOME HEALTH CLINICIAN Work Phone: [facility] 11-10-2024 14:54-0400 Body weight 68.22 kg Somjita Warren CLOTH WASHER OPERATOR.HOME HEALTH CLINICIAN Work Phone: [facility] 11-10-2024 14:54-0400 Diastolic blood pressure 61 mm[Hg] Somjita Warren CLOTH WASHER OPERATOR.HOME HEALTH CLINICIAN Work Phone: [facility] 11-10-2024 14:54-0400 Heart rate 41 /min Somjita Warren CLOTH WASHER OPERATOR.HOME HEALTH CLINICIAN Work Phone: [facility] 11-10-2024 14:54-0400 Respiratory rate 18 /min Somjita Warren CLOTH WASHER OPERATOR.HOME HEALTH CLINICIAN Work Phone: [facility] 11-10-2024 14:54-0400 SaO2% (BldA) [Mass fraction] 98 % Somjita Warren CLOTH WASHER OPERATOR.HOME HEALTH CLINICIAN Work Phone: [facility] 11-10-2024 14:54-0400 Systolic blood pressure 140 mm[Hg] Somjita Warren CLOTH WASHER OPERATOR.HOME HEALTH CLINICIAN Work Phone: [facility] 08-25-2024 09:13-0400 Body height 172.1 cm Johnnie Ross MD Work Phone: [facility] 08-25-2024 09:13-0400 Body mass index (BMI) [Ratio] 23.2 kg/m2 Johnnie Ross MD Work Phone: [facility] 08-25-2024 09:13-0400 Body weight 68.7 kg Johnnie Ross MD Work Phone: [facility] 08-25-2024 09:13-0400 Diastolic blood pressure 71 mm[Hg] Johnnie Ross MD Work Phone: [facility] 08-25-2024 09:13-0400 Heart rate 56 /min Johnnie Ross MD Work Phone: [facility] 08-25-2024 09:13-0400 Systolic blood pressure 130 mm[Hg] Johnnie Ross MD Work Phone: [facility] 07-13-2024 09:48-0400 Body mass index (BMI) [Ratio] 22.76 kg/m2 oJhnnie Ross MD Work Phone: [facility] 07-13-2024 09:48-0400 Body weight 67.4 kg Johnnie Ross MD Work Phone: [facility] 07-13-2024 09:48-0400 Diastolic blood pressure 80 mm[Hg] Johnnie Ross MD Work Phone: [facility] 07-13-2024 09:48-0400 Heart rate 44 /min Johnnie Ross MD Work Phone: [facility] 07-13-2024 09:48-0400 Respiratory rate 12 /min Johnnie Ross MD Work Phone: [facility] 07-13-2024 09:48-0400 Systolic blood pressure 120 mm[Hg] Johnnie Ross MD Work Phone: [facility] 05-15-2024 10:23-0500 Body mass index (BMI) [Ratio] 23.01 kg/m2 Trey Guzman MD Work Phone: [facility] 05-15-2024 10:23-0500 Body weight 68.13 kg Trey Guzman MD Work Phone: [facility] 05-15-2024 10:23-0500 Diastolic blood pressure 71 mm[Hg] Trey Guzman MD Work Phone: [facility] 05-15-2024 10:23-0500 Heart rate 41 /min Trey Guzman MD Work Phone: [facility] 05-15-2024 10:23-0500 SaO2% (BldA) [Mass fraction] 99 % Trey Guzman MD Work Phone: [facility] 05-15-2024 10:23-0500 Systolic blood pressure 125 mm[Hg] Trey Guzman MD Work Phone: [facility] 04-02-2024 14:13-0500 Body mass index (BMI) [Ratio] 22.73 kg/m2 Johnnie Ross MD Work Phone: [facility] 04-02-2024 14:13-0500 Body temperature 98.01 [degF] Johnnie Ross MD Work Phone: [facility] 04-02-2024 14:13-0500 Body weight 67.3 kg Johnnie Ross MD Work Phone: [facility] 04-02-2024 14:13-0500 Diastolic blood pressure 62 mm[Hg] Johnnie Ross MD Work Phone: [facility] 04-02-2024 14:13-0500 Heart rate 112 /min Johnnie Ross MD Work Phone: [facility] 04-02-2024 14:13-0500 Respiratory rate 16 /min Johnnie Ross MD Work Phone: [facility] 04-02-2024 14:13-0500 SaO2% (BldA) [Mass fraction] 99 % Johnnie Ross MD Work Phone: [facility] 04-02-2024 14:13-0500 Systolic blood pressure 118 mm[Hg] Johnnie Ross MD Work Phone: [facility] 03-30-2024 17:44-0500 Body mass index (BMI) [Ratio] 22.83 kg/m2 Gomez Wang APRN.CNP Work Phone: [facility] 03-30-2024 17:44-0500 Body temperature 98.1 [degF] Gomez Jillianlebury CLOTH WASHER OPERATOR.HOME HEALTH CLINICIAN Work Phone: [facility] 03-30-2024 17:44-0500 Body weight 67.6 kg Gomez Frankbury CLOTH WASHER OPERATOR.HOME HEALTH CLINICIAN Work Phone: [facility] 03-30-2024 17:44-0500 Diastolic blood pressure 84 mm[Hg] Gomez Walshlebury CLOTH WASHER OPERATOR.HOME HEALTH CLINICIAN Work Phone: [facility] 03-30-2024 17:44-0500 Heart rate 120 /min Gomez Frankbury CLOTH WASHER OPERATOR.HOME HEALTH CLINICIAN Work Phone: [facility] 03-30-2024 17:44-0500 Respiratory rate 18 /min [facility] CLOTH WASHER OPERATOR.HOME HEALTH CLINICIAN Work Phone: [facility] 03-30-2024 17:44-0500 SaO2% (BldA) [Mass fraction] 98 % [facility] CLOTH WASHER OPERATOR.HOME HEALTH CLINICIAN Work Phone: [facility] 03-30-2024 17:44-0500 Systolic blood pressure 142 mm[Hg] Gomez Frankbury CLOTH WASHER OPERATOR.HOME HEALTH CLINICIAN Work Phone: [facility] 02-17-2024 08:54-0500 Body height 172.1 cm Josefa Rolle CLOTH WASHER OPERATOR.OPERATOR TECHNICIAN Work Phone: [facility] 02-17-2024 08:54-0500 Body mass index (BMI) [Ratio] 23.17 kg/m2 Josefa Rolle CLOTH WASHER OPERATOR.OPERATOR TECHNICIAN Work Phone: [facility] 02-17-2024 08:54-0500 Body weight 68.6 kg Josefa Rolle CLOTH WASHER OPERATOR.OPERATOR TECHNICIAN Work Phone: [facility] 02-17-2024 08:54-0500 Diastolic blood pressure 78 mm[Hg] Josefa Rolle CLOTH WASHER OPERATOR.OPERATOR TECHNICIAN Work Phone: [facility] 02-17-2024 08:54-0500 Heart rate 75 /[facility] W[facility]ER OPERATOR.OPERATOR TECHNICIAN Work Phone: [facility] 02-17-2024 08:54-0500 Respiratory rate 16 /min Josefa Rolle CLOTH WASHER OPERATOR.OPERATOR TECHNICIAN Work Phone: [facility] 02-17-2024 08:54-0500 Systolic blood pressure 123 mm[Hg] Josefa Rolle CLOTH WASHER OPERATOR.OPERATOR TECHNICIAN Work Phone: [facility] 08-16-2023 10:09-0400 Body mass index (BMI) [Ratio] 23.7 kg/m2 Johnnie Ross MD Work Phone: [facility] 08-16-2023 10:09-0400 Body temperature 96.49 [degF] Johnnie Ross MD Work Phone: [facility] 08-16-2023 10:09-0400 Body weight 68.63 kg Johnnie Ross MD Work Phone: [facility] 08-16-2023 10:09-0400 Diastolic blood pressure 78 mm[Hg] Johnnie Ross MD Work Phone: [facility] 08-16-2023 10:09-0400 Heart rate 52 /min Johnnie Ross MD Work Phone: [facility] 08-16-2023 10:09-0400 Respiratory rate 18 /min Johnnie Ross MD Work Phone: [facility] 08-16-2023 10:09-0400 SaO2% (BldA) [Mass fraction] 99 % Johnnie Ross MD Work Phone: [facility] 08-16-2023 10:09-0400 Systolic blood pressure 146 mm[Hg] Johnnie Ross MD Work Phone: [facility] 05-13-2023 15:26-0500 Body weight 69.76 kg Shannon Rj CLOTH WASHER OPERATOR.HOME HEALTH CLINICIAN Work Phone: [facility] 05-13-2023 15:26-0500 Diastolic blood pressure 73 mm[Hg] Shannon Rj CLOTH WASHER OPERATOR.HOME HEALTH CLINICIAN Work Phone: [facility] 05-13-2023 15:26-0500 Heart rate 65 /min Shannon Rj CLOTH WASHER OPERATOR.HOME HEALTH CLINICIAN Work Phone: [facility] 05-13-2023 15:26-0500 Respiratory rate 16 /min Shannon Rj CLOTH WASHER OPERATOR.HOME HEALTH CLINICIAN Work Phone: [facility] 05-13-2023 15:26-0500 SaO2% (BldA) [Mass fraction] 98 % Shannon Rj CLOTH WASHER OPERATOR.HOME HEALTH CLINICIAN Work Phone: [facility] 05-13-2023 15:26-0500 Systolic blood pressure 152 mm[Hg] Shannon Rj CLOTH WASHER OPERATOR.HOME HEALTH CLINICIAN Work Phone: [facility] 02-26-2023 10:30-0500 Body weight 68.04 kg Josefa Rolle CLOTH WASHER OPERATOR.OPERATOR TECHNICIAN Work Phone: [facility] 02-26-2023 10:30-0500 Diastolic blood pressure 77 mm[Hg] Josefa Rolle CLOTH WASHER OPERATOR.OPERATOR TECHNICIAN Work Phone: [facility] 02-26-2023 10:30-0500 Heart rate 60 /min Josefa Rolle CLOTH WASHER OPERATOR.OPERATOR TECHNICIAN Work Phone: [facility] 02-26-2023 10:30-0500 Respiratory rate 16 /min Josefa Rolle CLOTH WASHER OPERATOR.OPERATOR TECHNICIAN Work Phone: [facility] 02-26-2023 10:30-0500 Systolic blood pressure 132 mm[Hg] Josefa Rolle CLOTH WASHER OPERATOR.OPERATOR TECHNICIAN Work Phone: [facility] 01-15-2023 13:47-0400 Body height 170.2 cm Evangelina Olvin CLOTH WASHER OPERATOR.HOME HEALTH CLINICIAN Work Phone: [facility] 01-15-2023 13:47-0400 Body weight 68.04 kg Evangelina Olvin CLOTH WASHER OPERATOR.HOME HEALTH CLINICIAN Work Phone: [facility] 01-15-2023 13:47-0400 Diastolic blood pressure 76 mm[Hg] Evangelina Olvin CLOTH WASHER OPERATOR.HOME HEALTH CLINICIAN Work Phone: [facility] 01-15-2023 13:47-0400 Heart rate 56 /min Evangelina Olvin CLOTH WASHER OPERATOR.HOME HEALTH CLINICIAN Work Phone: [facility] 01-15-2023 13:47-0400 Respiratory rate 16 /min Evangelina Olvin CLOTH WASHER OPERATOR.HOME HEALTH CLINICIAN Work Phone: [facility] 01-15-2023 13:47-0400 Systolic blood pressure 124 mm[Hg] Evangelina Olvin CLOTH WASHER OPERATOR.HOME HEALTH CLINICIAN Work Phone: [facility] 05-27-2022 13:36-0500 Body temperature 98.1 [degF] Jassi Fabian CLOTH WASHER OPERATOR.HOME HEALTH CLINICIAN Work Phone: [facility] 05-27-2022 13:36-0500 Body weight 68.49 kg Jassi Fabian CLOTH WASHER OPERATOR.HOME HEALTH CLINICIAN Work Phone: [facility] 05-27-2022 13:36-0500 Diastolic blood pressure 70 mm[Hg] Jassi Fabian CLOTH WASHER OPERATOR.HOME HEALTH CLINICIAN Work Phone: [facility] 05-27-2022 13:36-0500 Heart rate 62 /min Jassi Fabian CLOTH WASHER OPERATOR.HOME HEALTH CLINICIAN Work Phone: [facility] 05-27-2022 13:36-0500 Respiratory rate 16 /min Jassi Fabian CLOTH WASHER OPERATOR.HOME HEALTH CLINICIAN Work Phone: [facility] 05-27-2022 13:36-0500 SaO2% (BldA) [Mass fraction] 98 % Jassi Fabian CLOTH WASHER OPERATOR.HOME HEALTH CLINICIAN Work Phone: [facility] 05-27-2022 13:36-0500 Systolic blood pressure 128 mm[Hg] Jassi Fabian CLOTH WASHER OPERATOR.HOME HEALTH CLINICIAN Work Phone: [facility] 05-18-2022 09:05-0500 Body temperature 98.01 [degF] Emily Harrisk CLOTH WASHER OPERATOR.HOME HEALTH CLINICIAN Work Phone: [facility] 05-18-2022 09:05-0500 Body weight 70.76 kg Emily Thompson CLOTH WASHER OPERATOR.HOME HEALTH CLINICIAN Work Phone: [facility] 05-18-2022 09:05-0500 Diastolic blood pressure 82 mm[Hg] Emily Donna CLOTH WASHER OPERATOR.HOME HEALTH CLINICIAN Work Phone: [facility] 05-18-2022 09:05-0500 Heart rate 88 /min Emily Donna CLOTH WASHER OPERATOR.HOME HEALTH CLINICIAN Work Phone: [facility] 05-18-2022 09:05-0500 Respiratory rate 18 /min Emily Donna CLOTH WASHER OPERATOR.HOME HEALTH CLINICIAN Work Phone: [facility] 05-18-2022 09:05-0500 SaO2% (BldA) [Mass fraction] 97 % Emily Donna CLOTH WASHER OPERATOR.HOME HEALTH CLINICIAN Work Phone: [facility] 05-18-2022 09:05-0500 Systolic blood pressure 138 mm[Hg] Emily Donna CLOTH WASHER OPERATOR.HOME HEALTH CLINICIAN Work Phone: [facility] 02-20-2022 17:58-0500 Body weight 69.4 kg Johnnie Ross MD Work Phone: [facility] 02-20-2022 17:58-0500 Diastolic blood pressure 68 mm[Hg] Johnnie Ross MD Work Phone: [facility] 02-20-2022 17:58-0500 Heart rate 68 /min Johnnie Ross MD Work Phone: [facility] 02-20-2022 17:58-0500 SaO2% (BldA) [Mass fraction] 100 % Johnnie Ross MD Work Phone: [facility] 02-20-2022 17:58-0500 Systolic blood pressure 122 mm[Hg] Johnnie Ross MD Work Phone: [facility] 08-22-2021 08:21-0400 Body height 175.[address] Jackson Filed Work Phone: [facility] Work Phone: 08-22-2021 08:21-0400 Body mass index (BMI) [Ratio] 22.3 kg/m2 Dr. Jackson Field Work Phone: [facility] Work Phone: 08-22-2021 08:21-0400 Body weight 68.[address] Jackson Field Work Phone: [facility] Work Phone: 08-22-2021 08:21-0400 Diastolic blood pressure 78 mm[Hg] Dr. Jackson Field Work Phone: [facility] Work Phone: 08-22-2021 08:21-0400 Heart rate 66 /min Dr. Jackson Field Work Phone: [facility] Work Phone: 08-22-2021 08:21-0400 Respiratory rate 16 /min Dr. Jackson Field Work Phone: [facility] Work Phone: 08-22-2021 08:21-0400 SaO2% (BldA) [Mass fraction] 97 % Dr. Jackson Field Work Phone: [facility] Work Phone: 08-22-2021 08:21-0400 Systolic blood pressure 129 mm[Hg] Dr. Jackson Field Work Phone: [facility] Work Phone: 07-10-2021 08:46-0400 Body temperature 97.59 [degF] Sanford Mccurdy MD Work Phone: [facility] 07-10-2021 08:46-0400 Body weight 68.49 kg Sanford Mccurdy MD Work Phone: [facility] 07-10-2021 08:46-0400 Diastolic blood pressure 74 mm[Hg] Sanford Mccurdy MD Work Phone: [facility] 07-10-2021 08:46-0400 Heart rate 56 /min Sanford Mccurdy MD Work Phone: [facility] 07-10-2021 08:46-0400 Respiratory rate 14 /min Sanford Mccurdy MD Work Phone: [facility] 07-10-2021 08:46-0400 SaO2% (BldA) [Mass fraction] 97 % Sanford Mccurdy MD Work Phone: [facility] 07-10-2021 08:46-0400 Systolic blood pressure 113 mm[Hg] Sanford Mccurdy MD Work Phone: [facility] 07-10-2016 09:52-0400 BMI (Body Mass Index) 21.62 kg/m2 [facility] Work Phone: 07-10-2016 09:52-0400 BP Diastolic 50 mm[Hg] Christina Lainez RN [facility] Work Phone: 07-10-2016 09:52-0400 BP Systolic 100 mm[Hg] Christina Lainez RN [facility] Work Phone: 07-10-2016 09:52-0400 Height 180.34 cm Christina Lainez RN [facility] Work Phone: 07-10-2016 09:52-0400 Pulse (Heart Rate) 60 /min Christina Lainez RN [facility] Work Phone: 07-10-2016 09:52-0400 Respiratory Rate 20 /min Christina Lainez RN [facility] Work Phone: 07-10-2016 09:52-0400 Weight 70.31 kg Christina Lainez RN [facility] Work Phone: 07-12-2015 13:12-0400 BSA (Body Surface Area) 1.94 m2 Christina Lainez RN [facility] Work Phone: Encounters Encounter Date Encounter Type Care Provider Facility Start: 02-17-2025 ambulatory ALINE VAZQUEZ Facility :[facility] Start: 02-16-2025 End: 02-16-2025 ambulatory JOHNNIE ROSS Facility:[facility] Start: 01-19-2025 End: 01-19-[address] Rocky Nelson MD -[facility] Work Phone: Start: 01-19-2025 End: 01-19-2025 ambulatory Johnnie Marielos Cruzrivas Facility:[facility] Start: 01-06-2025 End: 01-06-2025 ambulatory ALINE VAZQUEZ Facility:[facility] Start: 01-01-2025 End: 01-01-2025 ambulatory VIRIDIANA LLANES Facility:[facility] Start: 12-14-2024 End: 12-14-2024 ambulatory TREY GUZMAN Facility:[facility] Start: 12-03-2024 End: 12-03-2024 Telephone encounter Trey Guzman MD Work Phone: [facility] [place] Comment on above: Preparations For Pro cedures Start: 11-27-2024 End: 11-30-2024 ambulatory Trey Guzman MD Work Phone: [facility] Start: 11-27-2024 End: 11-30-2024 Patient encounter procedure Trey Guzman MD Work Phone: [facility] Comment on above: My cardio version da te Start: 11-25-2024 End: 11-25-2024 Telephone encounter Aline Vazquez CLOTH WASHER OPERATOR.HOME HEALTH CLINICIAN Work Phone: [facility] Comment on above: Procedure Follow Up Start: 11-24-2024 End: 11-24-2024 Patient encounter procedure Nurse Card Ag [facility] Work Phone: [facility] Comment on above: Persistent atrial fi brillation (HCC) (Primary Dx) Start: 11-24-2024 End: 11-24-2024 ambulatory SELF Facility:[facility] Start: 11-23-2024 End: 11-23-2024 Telephone encounter Aline Vazquez CLOTH WASHER OPERATOR.HOME HEALTH CLINICIAN Work Phone: [facility] Comment on above: Patient Update Start: 11-18-2024 End: 11-18-2024 Telephone encounter Aline Vazquez CLOTH WASHER OPERATOR.HOME HEALTH CLINICIAN Work Phone: [facility] Comment on above: Orders; Appointment Start: 11-17-2024 End: 11-18-2024 Evaluation and management of inpatient TREY GUZMAN Facility:[facility] Start: 11-11-2024 End: 11-11-2024 ambulatory JOHNNIE ROSS Facility:[facility] Start: 11-10-2024 End: 11-10-2024 ambulatory CHRISTOPHER WEIGHT Facility:[facility] Start: 11-10-2024 End: 11-10-2024 Patient encounter procedure Keon Kelley APRN.CNP Work Phone: [facility] Comment on above: Encounter for follow -up surveillance of prostate cancer (Primary Dx); Erectile dysfunction, unspecified erectile dysfunction type; Prostate cancer (HCC) Screening for genito urinary condition Start: 11-10-2024 End: 11-10-2024 ambulatory KEON KELLEY Facility:[facility] Start: 11-09-2024 Encounter for other [facility]procedural examination [facility] Start: 11-09-2024 End: 11-15-2024 Preprocedural examination done Keon Kelley APRN.CNP Work Phone: [facility] Start: 10-15-2024 End: 10-15-2024 Telephone encounter Trey Guzman MD Work Phone: [facility] [place] Comment on above: Preparations For Pro cedures Start: 08-26-2024 End: 10-26-2024 Follow-up encounter Haja Juarez APRN.CNP Work Phone: [facility] Start: 08-25-2024 End: 10-25-2024 Follow-up encounter Josefa Rolle APRN.OPERATOR TECHNICIAN Work Phone: [facility] Start: 08-25-2024 End: 08-25-2024 Office outpatient visit 25 minutes Johnnie Ross MD Work Phone: [facility] [place] Comment on above: IFG (impaired fastin g glucose) (Primary Dx); Primary hypertension; Persistent atrial fibrillation (HCC); Dyslipidemia; Encounter for long-term current use of medication Start: 08-25-2024 End: 08-25-2024 ambulatory JOHNNIE ROSS Facility:[facility] Start: 08-22-2024 End: 08-22-2024 ambulatory JOSEFA ROLLE Facility:[facility] Start: 08-22-2024 Patient encounter procedure JOSEFA ROLLE [facility] Start: 07-23-2024 End: 07-24-2024 ambulatory Trey Guzman MD Work Phone: [facility] Start: 07-23-2024 End: 07-24-2024 Patient encounter procedure Trey Guzman MD Work Phone: [facility] Comment on above: Scheduling my ablati on and watchman procedure. Start: 07-22-2024 End: 07-22-2024 ambulatory Johnnie Ross [place] [place] Start: 07-21-2024 End: 07-23-2024 ambulatory Trey Guzman MD Work Phone: [facility] Start: 07-21-2024 End: 07-23-2024 Patient encounter procedure Trey Guzman MD Work Phone: [facility] Comment on above: CTA results and sche duling Ablation and Watchman Start: 07-15-2024 End: 07-15-2024 Telephone encounter Trey Guzman MD Work Phone: [facility] [place] Start: 07-13-2024 End: 07-13-2024 Subsequent hospital visit by physician [facility] (I-Stat) RADIO CT SCAN [facility] Comment on above: Persistent atrial fi brillation (HCC) [I48.19] Start: 07-13-2024 End: 07-13-2024 ambulatory JOHNNIE ROSS Facility:[facility] Start: 07-13-2024 End: 07-13-2024 Patient encounter procedure Johnnie Ross MD Work Phone: [facility] [place] Comment on above: Preop exam for inter nal medicine (Primary Dx); Persistent atrial fibrillation (HCC); At risk for bleeding associated with anticoagulants; Gross hematuria; Primary hypertension; IFG (impaired fasting glucose); Encounter for long-term current use of medication; Bradycardia; Recurrent hematuria; Inguinal hernia of left side without obstruction or gangrene Start: 07-13-2024 End: 07-13-2024 Patient encounter status Johnnie Ross MD Work Phone: [facility] Work Phone: Start: 06-17-2024 End: 06-17-2024 ambulatory Trey Guzman MD Work Phone: [facility] [place] Comment on above: Watchman CT Start: 06-17-2024 End: 06-17-2024 E-mail encounter from caregiver Trey Guzman MD Work Phone: [facility] [place] Start: 06-16-2024 End: 07-08-2024 Telephone encounter Trey Guzman MD Work Phone: [facility] [place] Comment on above: Cardiac Clearance Start: 06-11-2024 End: 06-11-2024 Telephone encounter Trey Guzman MD Work Phone: [facility] [place] Start: 05-28-2024 End: 06-06-2024 Telephone encounter Trey Guzman MD Work Phone: [facility] [place] Comment on above: Patient Update Start: 05-28-2024 End: 05-28-2024 Patient encounter procedure Kenneth Lin MD Work Phone: Urology Comment on above: Gross hematuria (Esperanza lara Dx); Malignant neoplasm of prostate (HCC) Start: 05-28-2024 End: 05-28-2024 ambulatory KENNETH LIN Facility:[facility] Start: 05-25-2024 End: 05-25-2024 ambulatory KASH VANCE Facility:[facility] Start: 05-25-2024 End: 05-25-2024 Subsequent hospital visit by physician Ct [facility] (I-Stat) Work Phone: Cat [facility] Comment on above: Gross hematuria [R31 .0] Start: 05-15-2024 End: 05-15-2024 Office outpatient new 45 minutes Trey Guzman MD Work Phone: 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 Start: 05-11-2024 End: 05-11-2024 Follow-up encounter Haja Juarez GENEVIEVE.HOME HEALTH CLINICIAN Work Phone: Radiation Oncology Comment on above: Encounter for follow -up surveillance of prostate cancer (Primary Dx) Start: 05-11-2024 End: 05-11-2024 Telemedicine consultation with patient Haja Juarez HOME HEALTH CLINICIAN Work Phone: Radiation Oncology Start: 05-05-2024 End: 05-05-2024 ambulatory KASH VANCE Facility:[facility] Start: 05-04-2024 End: 05-04-2024 Orders Only Ksah CANDELARIA Work Phone: Urology Comment on above: Gross hematuria (Esperanza lara Dx) Returning Patient's Call Start: 04-29-2024 End: 04-29-2024 ambulatory HAJA JUAREZ Facility:[facility] Start: 04-17-2024 End: 04-17-2024 ambulatory Johnnie Ross Facility:[facility] Start: 04-13-2024 End: 04-13-2024 ambulatory Johnnie Ross Facility:[facility] Start: 04-06-2024 [facility] Start: 04-06-2024 End: 04-06-[address] [facility] Facility:[facility] Start: 04-02-2024 End: 04-02-2024 Office outpatient visit 25 minutes Johnnei Ross MD Work Phone: [facility] [place] Comment on above: Atrial fibrillation and flutter (HCC) (Primary Dx); Acute bronchitis, unspecified organism; Sore throat Start: 04-02-2024 End: 04-02-2024 ambulatory JOHNNIE ROSS Facility:[facility] Start: 04-02-2024 End: 04-02-2024 Telephone encounter Johnnie Ross MD Work Phone: [facility] [place] Comment on above: Medication Request Start: 04-02-2024 ambulatory Rocky Nelson [facility] Start: 03-30-2024 End: 03-31-2024 Emergency department patient visit Jeannie Lamb Facility:[facility] Start: 03-30-2024 End: 03-30-2024 ambulatory JOHNNIE ROSS Facility:[facility] Start: 03-30-2024 End: 03-30-2024 Office outpatient visit 15 minutes Gomez Wang CLOTH WASHER OPERATOR.HOME HEALTH CLINICIAN Work Phone: [facility] Comment on above: Tachycardia (Primary Dx) Start: 02-17-2024 End: 02-17-2024 Patient encounter procedure Josefa Rolle CLOTH WASHER OPERATOR.OPERATOR TECHNICIAN Work Phone: [facility] [place] Comment on above: Medicare annual well ness visit, subsequent (Primary Dx); History of mitral valve repair Start: 10-21-2023 End: 10-21-2023 Follow-up encounter Haja Smiley CLOTH WASHER OPERATOR.HOME HEALTH CLINICIAN Work Phone: Radiation Oncology Comment on above: Encounter for follow -up surveillance of prostate cancer (Primary Dx) Start: 10-21-2023 End: 10-21-2023 Telemedicine consultation with patient Haja Juarez GENEVIEVE.HOME HEALTH CLINICIAN Work Phone: Radiation Oncology Start: 08-16-2023 End: 08-16-2023 Office outpatient visit 25 minutes Johnnie Ross MD Work Phone: [facility] [place] Comment on above: IFG (impaired fastin g glucose) (Primary Dx); Dyslipidemia; Sinus node dysfunction (HCC); Persistent atrial fibrillation (HCC); Malignant neoplasm of prostate (HCC); Encounter for long-term current use of medication Start: 08-12-2023 Telephone encounter Johnnie bojorquez MD Work Phone: [facility] Medicine [place] Comment on above: question on COVID roxy ryanne Start: 08-08-2023 Telephone encounter Johnnie bojorquez MD Work Phone: [facility] [place] Comment on above: Orders Start: 07-10-2023 Telephone encounter Johnnie bojorquez MD Work Phone: [facility] [place] Comment on above: RSV vaccine Start: 05-13-2023 End: 05-13-2023 Patient encounter procedure Shannon Gonzalezne CLOTH WASHER OPERATOR.HOME HEALTH CLINICIAN Work Phone: Neurology Comment on above: LISSETTE (obstructive sle ep apnea) Start: 05-13-2023 ambulatory Kenneth reeves MD Work Phone: Urology Start: 05-13-2023 End: 05-13-2023 Patient encounter procedure Kenneth Lin MD Work Phone: Urology Comment on above: Malignant neoplasm o f prostate (HCC) (Primary Dx) Start: 02-26-2023 End: 02-26-2023 Office outpatient visit 25 minutes Josefa Rolle CLOTH WASHER OPERATOR.OPERATOR TECHNICIAN Work Phone: [facility] [place] Comment on above: Primary hypertension (Primary Dx); Encounter for immunization; LISSETTE (obstructive sleep apnea); General weakness; Dizziness Start: 02-26-2023 End: 02-26-2023 Follow-up encounter Haja Juarez CLOTH WASHER OPERATOR.HOME HEALTH CLINICIAN Work Phone: Radiation Oncology Comment on above: Encounter for follow -up surveillance of prostate cancer (Primary Dx) Start: 02-26-2023 End: 02-26-2023 Telemedicine consultation with patient Haja Juarez CLOTH WASHER OPERATOR.HOME HEALTH CLINICIAN Work Phone: [facility] Start: 01-23-2023 Telephone encounter Johnnie bojorquez MD Work Phone: Internal [facility] [place] Comment on above: Results Start: 01-22-2023 End: 01-22-2023 Subsequent hospital visit by physician [facility] 2 Work Phone: Radiology Comment on above: General weakness [R5 3.1] Start: 01-15-2023 End: 01-15-2023 Patient encounter procedure Evangelina Bah CLOTH WASHER OPERATOR.HOME HEALTH CLINICIAN Work Phone: Internal Medicine [place] Comment on above: General weakness (Pr imary Dx); Dizziness; Encounter for screening for abdominal aortic aneurysm (AAA) in patient 50 years of age or older with history of smoking Start: 01-14-2023 Telephone encounter Johnnie bojorquez MD Work Phone: [facility] [place] Comment on above: ER F/U Start: 08-02-2022 End: 08-02-2022 Follow-up encounter Haja Juarez CLOTH WASHER OPERATOR.HOME HEALTH CLINICIAN Work Phone: Radiation Oncology Comment on above: Encounter for follow -up surveillance of prostate cancer (Primary Dx) Start: 08-02-2022 End: 08-02-2022 Telemedicine consultation with patient Haja Juarez CLOTH WASHER OPERATOR.HOME HEALTH CLINICIAN Work Phone: [facility] Start: 05-27-2022 End: 05-27-2022 Patient encounter procedure Jassi Peralta CLOTH WASHER OPERATOR.HOME HEALTH CLINICIAN Work Phone: [facility] Comment on above: COVID-19 (Primary Dx ) Start: 05-18-2022 Telephone encounter Johnnie bojorquez MD Work Phone: [facility] [place] Comment on above: Covid Positive Start: 05-18-2022 End: 05-18-2022 Patient encounter procedure Emily Thompson CLOTH WASHER OPERATOR.HOME HEALTH CLINICIAN Work Phone: [facility] Comment on above: Positive self-admini stered antigen test for COVID-19 (Primary Dx); URI, acute Start: 03-19-2022 ambulatory Kenneth reeves MD Work Phone: Urology Start: 02-20-2022 End: 02-20-2022 Office outpatient visit 25 minutes Johnnie Ross MD Work Phone: [facility] [place] Comment on above: IFG (impaired fastin g glucose) (Primary Dx); Primary hypertension; Left inguinal hernia; Encounter for long-term current use of medication Start: 02-13-2022 Telephone encounter Johnnie bojorquez MD Work Phone: [facility] [place] Comment on above: Lab order request Start: 01-06-2022 End: 01-06-2022 ambulatory [facility] [place] Work Phone: [facility] [place] Start: 12-19-2021 End: 12-19-2021 Follow-up encounter Haja Juarez APRN.HOME HEALTH CLINICIAN Work Phone: Radiation Oncology Comment on above: Encounter for follow -up surveillance of prostate cancer (Primary Dx) Start: 12-19-2021 End: 12-19-2021 Telemedicine consultation with patient Haja Juarez APRN.HOME HEALTH CLINICIAN Work Phone: [facility] Start: 09-19-2021 Non-patient / Non-visit Dr. Lexi Field Work Phone: [facility] Start: 09-19-2021 End: 09-19-[address] Jackson Field Work Phone: [facility] Start: 08-22-2021 Refill Johnnie kline MD Work Phone: [facility] [place] Comment on above: Refill Request Start: 08-22-2021 End: 08-22-[address] Jackson Field Work Phone: [facility] Start: 07-10-2021 End: 07-10-2021 Patient encounter procedure Sanford Mccurdy MD Work Phone: Radiation Oncology Comment on above: Malignant neoplasm o f prostate (HCC) (Primary Dx) Start: 07-10-2021 Radiation Oncology Note Sanford Mccurdy MD Work Phone: Radiation Oncology Comment on above: Simulation Note Start: 07-06-2021 Refill Sanford Arceo Work Phone: Radiation Oncology Comment on above: Refill Request Start: 06-30-2021 Telephone encounter Jose gambino RN Radiation Oncology Comment on above: Post Radiation Treat ment Follow Up Start: 05-28-2017 Ambulatory TREY valladaresty:[facility] Start: 05-01-2017 End: 05-01-2017 Ambulatory GOMEZ DALY Facility:[facility] Procedures Date Procedure Procedure Detail Performing Clinician Start: 11-24-2024 Ecg routine ecg w/le ast 12 lds w/i&r Aline Vazquez CLOTH WASHER OPERATOR.HOME HEALTH CLINICIAN Work Phone: Start: 11-17-2024 Antibody screen JOHNNIE GUTIERRES Comment on above: Order Comment: Speci men Type: BLOOD SPECIMENOrdering Facility: [facility] Address: [address] [id number] Performed By: #### T SCR ####[facility] BLOOD BANKCLIA [id number] [place] [id number] [place] Start: 11-10-2024 Urnls dip stick/tabl et rgnt auto w/o microscopy Bulk Order Provider Start: 07-13-2024 Creatinine blood [facility] Pr ovider Start: 05-15-2024 Ecg routine ecg w/le ast 12 lds w/i&r Trey Guzman MD Work Phone: Start: 04-02-2024 Ecg routine ecg w/le ast 12 lds i&r only [facility] Provider Start: 05-13-2023 Urnls dip stick/tabl et rgnt auto w/o microscopy Bulk Order Provider Start: 01-22-2023 Us retroperitoneal r eal time w/image limited Evangelina Bah CLOTH WASHER OPERATOR.HOME HEALTH CLINICIAN Work Phone: Start: 08-20-2022 Lipid 1996 panel - S kevin or Plasma Johnnie Ross MD Work Phone: Start: 03-19-2022 Urnls dip stick/tabl et rgnt auto w/o microscopy Bulk Order Provider Start: 01-06-2022 INFLUENZA SEASONAL QUADRIVALENT HIGH DOSE AGE 65+ Nicole Andrea MD Work Phone: Start: 06-08-2016 End: 07-09-2016 *Hepatic Function Panel Daniel Harley Start: 06-08-2016 End: 07-09-2016 Lipid panel [AGGREGATE] Daniel Harley Start: 07-12-2015 End: 07-12-2015 INVENTORY AND PRICING ASSOCIATE Rocky Nelson MD Start: 07-12-2015 End: 07-12-2015 Follow Up Appt 1 year Rocky Nelson MD Start: 05-17-2015 End: 07-11-2015 *Hepatic Function Panel Kash contreras PA-C Work Phone: Start: 05-17-2015 End: 07-11-2015 Lipid panel [AGGREGATE] Kash contreras PA-C Work Phone: Start: 06-29-2014 End: 06-29-2014 FRANSISCA Nelson MD Start: 06-29-2014 End: 06-29-2014 Follow Up Appt 1 year Rocky Nelson MD Start: 2014 End: 06-02-2014 *Hepatic Function Panel Daniel Harley Start: 2014 End: 06-02-2014 Lipid panel [AGGREGATE] Daniel Harley Start: 11-06-2013 End: 11-16-2013 *Hepatic Function Panel Volodymyr Perez MD Work Phone: Start: 11-06-2013 End: 11-16-2013 Lipid panel [AGGREGATE] Volodymyr Perez MD Work Phone: Start: 06-30-2013 End: 07-22-2013 Carotid duplex Rocky Nelson MD Start: 06-30-2013 End: 06-30-2013 FRANSISCA Nelson MD Start: 06-30-2013 End: 06-30-2013 Follow Up Appt 1 year Rocky Nelson MD Start: 11-26-2012 End: 05-25-2013 *Hepatic Function Panel Jeff Johnson MD Start: 11-26-2012 End: 05-25-2013 Lipid panel [AGGREGATE] Jeff Johnson MD Start: 05-20-2012 End: 07-08-2012 Echocardiography Jeff Johnson MD Start: 05-20-2012 End: 05-20-2012 Electrocardiogram, complete Jeff Johnson MD Start: 05-20-2012 End: 05-20-2012 eRx Transmitted during this visit (Medicare only) Jeff Johnson MD Start: 05-20-2012 End: 05-20-2012 Follow Up Appt 1 year Jeff Johnson MD Start: 11-20-2011 End: 05-20-2012 *Hepatic Function Panel Jeff Johnson MD Start: 11-20-2011 End: 11-20-2011 Follow Up Appt 6 months Jeff Johnson MD Start: 11-20-2011 End: 05-20-2012 Lipid panel [AGGREGATE] Jeff Johnson MD Start: 05-22-2011 End: 05-31-2011 Echocardiography Jeff Johnson MD Plan of Treatment Date Care Activity Detail Author Start: 11-19-2027 Diabetes Screening Diabetes Screenin [facility] Start: 08-23-2027 Diabetes Screening Diabetes Screenin [facility] Start: 08-21-2027 Lipid 1996 panel - S kevin or Plasma Lipid Screening [facility] Start: 04-23-2027 Urine microalbumin profile [facility] Start: 02-17-2027 LIPID SCREEN LIPID SCREEN [facility] Start: 02-13-2027 Diabetes Screening Diabetes Screenin g [facility] Start: 08-21-2026 LIPID SCREEN LIPID SCREEN [facility] Start: 08-09-2026 Diabetes Screening Diabetes Screenin g [facility] Start: 02-26-2026 Diabetes Screening Diabetes Screenin g [facility] Start: 09-06-2025 End: 09-06-2025 Patient encounter procedure 09/06/2025 8:40 AM EDT Office Visit [facility] [place] [address] [place] [address] Johnnie Ross MD [address] [place], [place] [id number] Yearly/6 month follow up [facility] [place] Comment on above: Yearly/6 month follo w up Start: 08-25-2025 Annual PCP Team Promotion Specialist lyudmila Disease Visit Annual PCP Team Chronic Disease Visit [facility] Start: 08-25-2025 Covid-19 Vaccine () Covid-19 Vaccine () [facility] Comment on above: Postponed from 08/05 (Declined at this time) Start: 08-22-2025 Hepatitis B surface antibody level LDL Cholesterol [facility] Start: 08-20-2025 Diabetes Screening Diabetes Screenin g [facility] Start: 07-13-2025 Annual PCP Team Promotion Specialist lyudmila Disease Visit Annual PCP Team Chronic Disease Visit [facility] Start: 05-21-2025 End: 05-21-2025 Patient encounter procedure 05/21/2025 11:00 AM EST Office Visit [facility] [address] [place], [place] [id number] Trey Guzman MD [address] [place] [id number] 6 month s/p watchman [facility] Comment on above: 6 month s/p [facility] [place] Start: 05-15-2025 BP Controlled (<130/80) BP Controlle d (<130/80) [facility] Start: 05-13-2025 End: 08-12-2025 Prostate specific Ag [Mass/volume] in Serum or Plasma PROSTATE-SPECIFIC ANTIGEN DIAGNOSTIC Lab Routine Encounter for follow-up surveillance of prostate cancer Expected: 05/13/2025 (Approximate), Expires: 08/12/2025 [facility] Work Phone: Comment on above: Expected: 05/13/2025 (Approximate), Expires: 08/12/2025 Start: 12-26-2025 Annual PCP Team Promotion Specialist lyudmila Disease Visit Annual PCP Team Chronic Disease Visit [facility] Start: 04-02-2025 BP Controlled (<130/80) BP Controlle d (<130/80) [facility] Start: 02-22-2025 End: 02-22-2025 Patient encounter procedure 02/22/2025 9:00 AM EST Office Visit [facility] [place] [address] [place] [address] Josefa Rolle APRN.OPERATOR TECHNICIAN [address] [place] [address] Annual Medicare Wellness [facility] [place] Comment on above: Annual Medicare Well ness Start: 02-17-2025 DIABETES SCREEN DIABETES SCREEN [facility] Start: 02-17-2025 End: 11-18-2025 OUTSIDE VENDOR CARDIAC OUTPATIENT EXTENDED RHYTHM RECORDING (WITHOUT TELEMETRY) OUTSIDE VENDOR CARDIAC OUTPATIENT EXTENDED RHYTHM RECORDING (WITHOUT TELEMETRY) Holter Routine Presence of Watchman left atrial appendage closure device Atrial fib/flutter, transient (HCC) Paroxysmal atrial fibrillation (HCC) Expected: 02/17/2025, Expires: 11/18/2025 [facility] Comment on above: Expected: 02/17/2025 , Expires: 11/18/2025 Start: 02-17-2025 End: 02-17-2025 Patient encounter procedure 02/17/2025 10:30 AM EST Appointment [facility] [address] [place] [address] ZIO Holter Monitor [facility] Comment on above: ZIO Holter Monitor Start: 02-16-2025 BP Controlled (<130/80) BP Controlle d (<130/80) [facility] Start: 02-16-2025 Medicare Annual Well ness Visit Medicare Annual Wellness Visit [facility] Start: 01-25-2025 End: 04-26-2025 CBC panel - Blood by Automated count COMPLETE BLOOD COUNT Lab Routine Primary hypertension Encounter for long-term current use of medication Expected: 01/25/2025 (Approximate), Expires: 04/26/2025 [facility] Comment on above: Expected: 01/25/2025 (Approximate), Expires: 04/26/2025 Start: 01-25-2025 End: 04-26-2025 Comprehensive metabolic 2000 panel - Serum or Plasma COMPREHENSIVE METABOLIC PANEL Lab Routine IFG (impaired fasting glucose) Primary hypertension Encounter for long-term current use of medication Expected: 01/25/2025 (Approximate), Expires: 04/26/2025 [facility] Work Phone: Comment on above: Expected: 01/25/2025 (Approximate), Expires: 04/26/2025 Start: 01-25-2025 End: 04-26-2025 Hemoglobin A1c in Blood HEMOGLOBIN A1C Lab Routine IFG (impaired fasting glucose) Encounter for long-term current use of medication Expected: 01/25/2025 (Approximate), Expires: 04/26/2025 [facility] Comment on above: Expected: 01/25/2025 (Approximate), Expires: 04/26/2025 Start: 01-12-2025 End: 01-12-2025 Patient encounter procedure 01/12/2025 2:30 PM EDT Office Visit Urology [address] [place] [address] Roger Porras PA-C [address] [place] [address] Erectile dysfunction, unspecified erectile dysfunction type [N52.9] Urology Comment on above: Erectile dysfunction , unspecified erectile dysfunction type [N52.9] Start: 01-06-2025 End: 01-06-2025 Patient encounter procedure 01/06/2025 2:30 PM EDT Office Visit [facility] [address] [place] [address] Aline Vazquez APRN.HOME HEALTH CLINICIAN [address] [place], [place] [phone] YURIDIA Follow up [facility] Comment on above: YURIDIA Follow up Start: 01-01-2025 End: 01-01-2025 Admission to same day surgery center 01/01/2025 8:30 AM EDT - 01/01/2025 9:30 AM EDT Surgery [address] [address] Viridiana Llanes MD [address] [place] [phone] (Fax) ECHOCARDIOGRAM TRANSESOPHOGEAL [facility] Comment on above: ECHOCARDIOGRAM TRANS ESOPHOGEAL Start: 01-01-2025 End: 01-01-2025 Echo transesophag montr cardiac pump functj ECHOCARDIOGRAM TRANSESOPHOGEAL Presence of Watchman left atrial appendage closure device 01/01/2025 8:30 AM EDT [facility] Start: 01-01-2025 Subsequent hospital visit by physician 01/01/2025 8:30 AM EDT Hospital Encounter [address] [address] Viridiana Llanes MD [address] [place] [phone] (Fax) Presence of Watchman left atrial appendage closure device [Z95.818] [facility] Comment on above: Presence of Watchman left atrial appendage closure device [Z95.818] Start: 12-14-2024 End: 12-14-2024 Admission to same day surgery center 12/14/2024 8:05 AM EDT - 12/14/2024 9:22 AM EDT Surgery [address] [address] Trey Guzman MD [address] [place] [phone] (Fax) CARDIOVERSION EXTERNAL ELECTIVE [facility] Comment on above: CARDIOVERSION PORCELAIN TECHNICIAN AL ELECTIVE Start: 12-14-2024 End: 12-14-2024 Cardioversion elective arrhythmia external CARDIOVERSION EXTERNAL ELECTIVE Persistent atrial fibrillation (HCC) 12/14/2024 8:05 AM EDT [facility] Start: 12-14-2024 Subsequent hospital visit by physician 12/14/2024 8:05 AM EDT Hospital Encounter [address] [address] Trey Guzman MD [address] [place] [phone] (Fax) Persistent atrial fibrillation (HCC) [I48.19] [facility] Comment on above: Persistent atrial fi brillation (HCC) [I48.19] Start: 12-07-2024 Influenza vaccination Influenza Vacc ine (#1) [facility] Start: 11-24-2024 End: 11-24-2024 Patient encounter procedure 11/24/2024 2:00 PM EDT Office Visit [facility] [place] [address] [place], [place] [phone] EKG per Vero Vazquez. [facility] [place] Comment on above: EKG per Vero jose. Start: 11-19-2024 Subsequent hospital visit by physician 11/19/2024 Hospital Encounter [facility] [address] [place] [address] Trey Guzman MD [address] [place] [phone] Persistent atrial fibrillation (HCC) [I48.19], At risk for stroke [Z91.89], At risk for bleeding associated with anticoagulants [Z91.89], Gross hematuria [R31.0] [facility] Comment on above: Persistent atrial fi brillation (HCC) [I48.19], At risk for stroke [Z91.89], At risk for bleeding associated with anticoagulants [Z91.89], Gross hematuria [R31.0] Start: 11-17-2024 End: 11-17-2024 Admission to same day surgery center 11/17/2024 7:45 AM EDT - 11/17/2024 1:55 PM EDT Surgery [address] [address] Trey Guzman MD [address] [place] [phone] (Fax) COMPRE EP EVAL ABLTJ ATR FIB PULM VEIN ISOLATION [facility] Comment on above: COMPRE EP EVAL ABLTJ ATR FIB PULM VEIN ISOLATION Start: 11-17-2024 End: 11-17-2024 Anesthesia consultation 11/17/2024 7:45 AM EDT Anesthesia Event [address] [address] Kayleen Truong MD [address] [place] [address] [facility] Start: 11-17-2024 End: 11-17-2024 Echo transesophag r-t 2d w/prb img acquisj i&r ECHOCARDIOGRAM TRANSESOPHOGEAL, REAL TIME W/IMAGE DOCUMENT (2D) Persistent atrial fibrillation (HCC) At risk for stroke At risk for bleeding associated with anticoagulants Gross hematuria 11/17/2024 7:45 AM EDT [facility] Start: 11-17-2024 End: 11-17-2024 Ephys evl trnsptl tx atrial fib isolat pulm vein COMPRE EP EVAL ABLTJ ATR FIB PULM VEIN ISOLATION Persistent atrial fibrillation (HCC) At risk for stroke At risk for bleeding associated with anticoagulants Gross hematuria 11/17/2024 7:45 AM EDT [facility] Start: 11-17-2024 End: 11-17-2024 Perq clsr tcat l atr apndge w/endocardial implnt [facility] TRANSCATH CLOSURE LEFT ATRIAL APPENDAGE W/IMPLANT,INCLUSIVE OF FLUORO,TRANSEPTAL PUNCTURE,CATH PLACEMENT(S) ANGIO,WHEN PERFORMED,RAD S&I Persistent atrial fibrillation (HCC) At risk for stroke At risk for bleeding associated with anticoagulants Gross hematuria 11/17/2024 7:45 AM EDT [facility] Start: 11-17-2024 Subsequent hospital visit by physician [facility] Comment on above: Persistent atrial fi brillation (HCC) [I48.19], At risk for stroke [Z91.89], At risk for bleeding associated with anticoagulants [Z91.89], Gross hematuria [R31.0] Start: 11-11-2024 End: 11-11-2024 ambulatory 11/11/2024 10:00 AM EDT PAT Pre Surgical Testing [address] [place] [address] Needs H&P with EKG for Watchman/PFA on 11/[address] Guzman Pre Surgical Testing Comment on above: Needs H&P with EKG f or Watchman/PFA on 11/[address] Guzman Start: 11-10-2024 End: 11-10-2024 Patient encounter procedure Radiation On[facility] Comment on above: Follow up per work q 6 month follow up Start: 10-19-2024 End: 10-19-2024 Patient encounter procedure 10/19/2024 11:30 AM EDT Office Visit Urology [address] [address] Kenneth Lin MD [address] [place] [address] 6 month follow up Urology Comment on above: 6 month follow up Start: 09-30-2024 End: 09-30-2024 Patient encounter procedure 09/30/2024 1:30 PM EDT Appointment [facility] [address] [place] [address] Persistent atrial fibrillation (HCC) [I48.19]; At risk for stroke [Z91.89]; At risk for bleeding associated with anticoagulants [Z91.89]; Gross hematuria [R31.0] [facility] Comment on above: Persistent atrial fi brillation (HCC) [I48.19]; At risk for stroke [Z91.89]; At risk for bleeding associated with anticoagulants [Z91.89]; Gross hematuria [R31.0] Start: 08-25-2024 End: 08-25-2024 Patient encounter procedure 08/25/2024 9:20 AM EDT Office Visit [facility] [address] [place], [place] [id number] Johnnie Ross MD [address] [place], [place] [id number] 6 month follow up [facility] Comment on above: 6 month follow up Start: 08-21-2024 DIABETES SCREEN DIABETES SCREEN [facility] Start: 08-15-2024 Annual PCP Team Promotion Specialist lyudmila Disease Visit Annual PCP Team Chronic Disease Visit [facility] Start: 08-15-2024 Covid-19 Vaccine () Covid-19 Vaccine () [facility] Comment on above: Postponed from (Declined at this time) Start: 08-09-2024 Hepatitis B surface antibody level LDL Cholesterol [facility] Start: 08-06-2024 End: 02-05-2025 CBC W Auto Differential panel - Blood COMPLETE BLOOD COUNT AND DIFFERENTIAL Lab Routine Medicare annual wellness visit, subsequent Expected: 08/06/2024 (Approximate), Expires: 02/05/2025 [facility] Work Phone: Comment on above: Expected: 08/06/2024 (Approximate), Expires: 02/05/2025 Start: 08-06-2024 End: 11-05-2024 Comprehensive metabolic 2000 panel - Serum or Plasma COMPREHENSIVE METABOLIC PANEL Lab Routine IFG (impaired fasting glucose) Encounter for long-term current use of medication Primary hypertension Expected: 08/06/2024 (Approximate), Expires: 11/05/2024 [facility] Work Phone: Comment on above: Expected: 08/06/2024 (Approximate), Expires: 11/05/2024 Start: 08-06-2024 End: 11-05-2024 Hemoglobin A1c in Blood HEMOGLOBIN A1C Lab Routine IFG (impaired fasting glucose) Encounter for long-term current use of medication Expected: 08/06/2024 (Approximate), Expires: 11/05/2024 [facility] Comment on above: Expected: 08/06/2024 (Approximate), Expires: 11/05/2024 Start: 08-06-2024 End: 11-05-2024 Lipid 1996 panel - Serum or Plasma LIPID PANEL, FASTING Lab Routine Encounter for long-term current use of medication Primary hypertension Expected: 08/06/2024 (Approximate), Expires: 11/05/2024 [facility] Comment on above: Expected: 08/06/2024 (Approximate), Expires: 11/05/2024 Start: 08-06-2024 End: 11-05-2024 Prostate specific Ag [Mass/volume] in Serum or Plasma PROSTATE-SPECIFIC ANTIGEN DIAGNOSTIC Lab Routine Encounter for follow-up surveillance of prostate cancer Expected: 08/06/2024, Expires: 11/05/2024 [facility] Work Phone: Comment on above: Expected: 08/06/2024 , Expires: 11/05/2024 Start: 08-06-2024 End: 02-05-2025 Testosterone [Mass/volume] in Serum or Plasma TESTOSTERONE, TOTAL Lab Routine Medicare annual wellness visit, subsequent Expected: 08/06/2024 (Approximate), Expires: 02/05/2025 [facility] Comment on above: Expected: 08/06/2024 (Approximate), Expires: 02/05/2025 Start: 08-05-2024 Covid-19 Vaccine () Covid-19 Vaccine () [facility] Start: 08-05-2024 Covid-19 Vaccine () Covid-19 Vaccine () [facility] Start: 07-13-2024 End: 07-13-2024 Patient encounter procedure 07/13/2024 10:00 AM EDT Office Visit [facility] [place] [address] [place] [address] Johnnie Ross MD [address] [place], [place] [phone] F2F and complete the formal SDM documentation. [facility] [place] Comment on above: F2F and complete the formal SDM documentation. Start: 06-04-2024 End: 06-04-2024 Patient encounter procedure 06/04/2024 11:30 AM EST Office Visit Urology [address] [address] Kenneth Lin MD [address] [place], [place] [id number] follow up Urology Comment on above: follow up Start: 06-01-2024 End: 06-01-2024 Patient encounter procedure 06/01/2024 2:30 PM EST Office Visit Urology [address] [address] Kenneth Lin MD [address] [place] [address] follow up Urology Comment on above: follow up Start: 05-28-2024 End: 08-27-2024 Prostate specific Ag [Mass/volume] in Serum or Plasma PROSTATE-SPECIFIC ANTIGEN DIAGNOSTIC Lab Routine Gross hematuria Malignant neoplasm of prostate (HCC) Expected: 05/28/2024, Expires: 08/27/2024 [facility] Work Phone: Comment on above: Expected: 05/28/2024 , Expires: 08/27/2024 Start: 05-25-2024 End: 05-25-2024 Patient encounter procedure 05/25/2024 3:00 PM EST Appointment Cat Scan [address] [place] [address] ct urogram [facility] Comment on above: ct urogram Start: 05-18-2024 End: 05-18-2024 Patient encounter procedure 05/18/2024 11:30 AM EST Office Visit Urology [address] [address] Kenneth Lin MD [address] [place] [address] follow up Urology Comment on above: follow up Start: 05-15-2024 End: 05-15-2024 Patient encounter procedure [facility] Comment on above: DANIELLA Mora 2018 DANIELLA Mora 2018 EK G jt Start: 05-14-2024 End: 05-14-2024 Patient encounter procedure 05/14/2024 1:00 PM EST Appointment Cat Scan [address] [place] [address] ct urogram [facility] Comment on above: ct urogram Start: 05-11-2024 End: 05-11-2024 Patient encounter procedure 05/11/2024 10:00 AM EST Office Visit Radiation Oncology [address] [place] [address] Haja Juarez APRN.HOME HEALTH CLINICIAN [address] [place], [place] [phone] F/U in Apr 2024 with a PSA Radiation Oncology Comment on above: F/U in Apr 2024 with a PSA Start: 05-05-2024 End: 05-05-2024 ambulatory 05/05/2024 8:45 AM EST Results Only [facility] [address] [place] [address] creatinine [place] [facility] Comment on above: creatinine Start: 05-04-2024 End: 08-03-2024 CREATININE BLD CREATININE BLD Lab Routine Gross hematuria Expected: 05/04/2024, Expires: 08/03/2024 [facility] Comment on above: Expected: 05/04/2024 , Expires: 08/03/2024 Start: 04-27-2024 End: 04-27-2024 ambulatory 04/27/2024 8:45 AM EST Results Only [facility] [address] [place] [address] F/U in Apr 2024 with a PSA [facility] Comment on above: F/U in Apr 2024 with a PSA Start: 04-08-2024 Advance Directive Discussion Advance Directive Discussion [facility] Start: 04-08-2024 Colorectal Cancer Screening Colorectal Cancer Screening [facility] Comment on above: Postponed from 05/09 (Postponed To Appropriate Date) Start: 04-02-2024 End: 04-02-2024 Patient encounter procedure 04/02/2024 2:20 PM EST Office Visit Internal [facility] [place] [address] [place] [address] Johnnie Ross MD [address] [place] [address] sore throat ok per LDT (see phone note) [facility] Comment on above: sore throat ok per L DT (see phone note) Start: 03-08-2024 End: 06-07-2024 Prostate specific Ag [Mass/volume] in Serum or Plasma PROSTATE-SPECIFIC ANTIGEN DIAGNOSTIC Lab Routine Encounter for follow-up surveillance of prostate cancer Expected: 03/08/2024, Expires: 06/07/2024 [facility] Work Phone: Comment on above: Expected: 03/08/2024 , Expires: 06/07/2024 Start: 02-17-2024 End: 02-17-2024 Patient encounter procedure 02/17/2024 9:00 AM EST Office Visit Internal Medicine [facility] [address] [place] [address] Josefa Rlole, GENEVIEVE.OPERATOR TECHNICIAN [address] [place] [address] Medicare Wellness [facility] Comment on above: Medicare Wellness Start: 02-16-2024 End: 05-17-2024 CBC panel - Blood by Automated count COMPLETE BLOOD COUNT Lab Routine Encounter for long-term current use of medication Expected: 02/16/2024 (Approximate), Expires: 05/17/2024 [facility] Comment on above: Expected: 02/16/2024 (Approximate), Expires: 05/17/2024 Start: 02-16-2024 End: 05-17-2024 Comprehensive metabolic 2000 panel - Serum or Plasma COMPREHENSIVE METABOLIC PANEL Lab Routine Encounter for long-term current use of medication Expected: 02/16/2024 (Approximate), Expires: 05/17/2024 [facility] Comment on above: Expected: 02/16/2024 (Approximate), Expires: 05/17/2024 Start: 02-16-2024 End: 05-17-2024 Hemoglobin A1c in Blood HEMOGLOBIN A1C Lab Routine IFG (impaired fasting glucose) Expected: 02/16/2024 (Approximate), Expires: 05/17/2024 [facility] Work Phone: Comment on above: Expected: 02/16/2024 (Approximate), Expires: 05/17/2024 Start: 01-16-2024 Annual PCP Team Promotion Specialist lyudmila Disease Visit Annual PCP Team Chronic Disease Visit [facility] Start: 01-16-2024 BP Controlled (<130/80) BP Controlle d (<130/80) [facility] Start: 12-08-2023 Influenza vaccination Influenza Vacc ine (#1) [facility] Start: 10-21-2023 End: 10-21-2023 ambulatory 10/21/2023 7:30 AM EDT [facility] Radiation Oncology [address] [place] [address] Haja Juarez APRN.HOME HEALTH CLINICIAN [address] [place] [address] F/U via virtual visit in October 2023 with a PSA Radiation Oncology Comment on above: F/U via virtual visi t in October 2023 with a PSA Start: 08-22-2023 Annual PCP Team Promotion Specialist lyudmila Disease Visit Annual PCP Team Chronic Disease Visit [facility] Start: 08-22-2023 BP Controlled (<130/80) BP Controlle d (<130/80) [facility] Start: 08-21-2023 Hepatitis B surface antibody level LDL Cholesterol [facility] Start: 08-16-2023 End: 11-15-2023 CBC panel - Blood by Automated count COMPLETE BLOOD COUNT Lab Routine 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 Expected: 08/16/2023 (Approximate), Expires: 11/15/2023 [facility] Work Phone: Comment on above: Expected: 08/16/2023 (Approximate), Expires: 11/15/2023 Start: 08-16-2023 End: 11-15-2023 Comprehensive metabolic 2000 panel - Serum or Plasma COMPREHENSIVE METABOLIC PANEL Lab Routine Dyslipidemia Expected: 08/16/2023 (Approximate), Expires: 11/15/2023 [facility] Comment on above: Expected: 08/16/2023 (Approximate), Expires: 11/15/2023 Start: 08-16-2023 End: 11-15-2023 Hemoglobin A1c in Blood HEMOGLOBIN A1C Lab Routine IFG (impaired fasting glucose) Expected: 08/16/2023 (Approximate), Expires: 11/15/2023 [facility] Comment on above: Expected: 08/16/2023 (Approximate), Expires: 11/15/2023 Start: 08-16-2023 End: 11-15-2023 Lipid 1996 panel - Serum or Plasma LIPID PANEL BASIC Lab Routine Dyslipidemia Expected: 08/16/2023 (Approximate), Expires: 11/15/2023 [facility] Comment on above: Expected: 08/16/2023 (Approximate), Expires: 11/15/2023 Start: 08-16-2023 End: 08-16-2023 Patient encounter procedure 08/16/2023 9:20 AM EDT Office Visit [facility] [place] [address] [facility] [place] [address] Johnnie Ross MD [address] [facility] [place] [address] 6 month f/u [facility] [place] Comment on above: 6 month f/u Start: 07-08-2023 End: 10-07-2023 Prostate specific Ag [Mass/volume] in Serum or Plasma PSA/PROSTSPECAG DIAG Lab Routine Encounter for follow-up surveillance of prostate cancer Expected: 07/08/2023, Expires: 10/07/2023 [facility] Work Phone: Comment on above: Expected: 07/08/2023 , Expires: 10/07/2023 Start: 06-06-2023 Covid-19 Vaccine () Covid-19 Vaccine () [facility] Start: 05-27-2023 BP CONTROLLED (<130/80) BP CONTROLLE D (<130/80) [facility] Start: 05-13-2023 End: 08-12-2023 Prostate specific Ag [Mass/volume] in Serum or Plasma PSA/PROSTSPECAG DIAG Lab Routine Malignant neoplasm of prostate (HCC) Expected: 05/13/2023, Expires: 08/12/2023 [facility] Work Phone: Comment on above: Expected: 05/13/2023 , Expires: 08/12/2023 Start: 04-08-2023 Advance Directive Discussion Advance Directive Discussion [facility] Start: 02-20-2023 ANNUAL PCP TEAM IN FILE OPERATOR LYUDMILA DISEASE VISIT ANNUAL PCP TEAM CHRONIC DISEASE VISIT [facility] Start: 02-20-2023 BP CONTROLLED (<130/80) BP CONTROLLE D (<130/80) [facility] Start: 02-17-2023 Hepatitis B surface antibody level LDL CHOLESTEROL [facility] Start: 12-07-2022 Covid-19 Vaccine () Covid-19 Vaccine () [facility] Start: 12-07-2022 Covid-19 Vaccine () Covid-19 Vaccine () [facility] Start: 12-07-2022 Influenza vaccination Influenza Vacc ine (#1) [facility] Start: 08-21-2022 Hepatitis B surface antibody level LDL CHOLESTEROL [facility] Start: 08-20-2022 End: 10-20-2022 CBC panel - Blood by Automated count CBC Lab Routine Encounter for long-term current use of medication Primary hypertension Expected: 08/20/2022 (Approximate), Expires: 10/20/2022 [facility] Work Phone: Comment on above: Expected: 08/20/2022 (Approximate), Expires: 10/20/2022 Start: 08-20-2022 End: 10-20-2022 Comprehensive metabolic 2000 panel - Serum or Plasma COMP METABOLIC PANEL Lab Routine IFG (impaired fasting glucose) Encounter for long-term current use of medication Primary hypertension Expected: 08/20/2022 (Approximate), Expires: 10/20/2022 [facility] Work Phone: Comment on above: Expected: 08/20/2022 (Approximate), Expires: 10/20/2022 Start: 08-20-2022 End: 10-20-2022 Hemoglobin A1c in Blood HGB A1C Lab Routine IFG (impaired fasting glucose) Encounter for long-term current use of medication Expected: 08/20/2022 (Approximate), Expires: 10/20/2022 [facility] Work Phone: Comment on above: Expected: 08/20/2022 (Approximate), Expires: 10/20/2022 Start: 08-20-2022 End: 10-20-2022 Lipid 1996 panel - Serum or Plasma LIPID PANEL BASIC Lab Routine Encounter for long-term current use of medication Expected: 08/20/2022 (Approximate), Expires: 10/20/2022 [facility] Work Phone: Comment on above: Expected: 08/20/2022 (Approximate), Expires: 10/20/2022 Start: 07-10-2022 BP CONTROLLED (<130/80) BP CONTROLLE D (<130/80) [facility] Start: 06-26-2022 ANNUAL PCP TEAM IN FILE OPERATOR LYUDMILA DISEASE VISIT ANNUAL PCP TEAM CHRONIC DISEASE VISIT [facility] Start: 06-26-2022 BP CONTROLLED (<130/80) BP CONTROLLE D (<130/80) [facility] Start: 06-26-2022 HEPATITIS C SCREENING HEPATITIS C MI MARK [facility] Comment on above: Postponed from 05/09 (Declined at this time) Start: 2022 End: 08-05-2022 Prostate specific Ag [Mass/volume] in Serum or Plasma PSA/PROSTSPECAG DIAG Lab Routine Encounter for follow-up surveillance of prostate cancer Expected: 2022, Expires: 08/05/2022 [facility] Work Phone: Comment on above: Expected: 2022 , Expires: 08/05/2022 Start: 04-08-2022 ADVANCE DIRECTIVE DISCUSSION ADVANCE DIRECTIVE DISCUSSION [facility] Start: 02-15-2022 End: 04-17-2022 Comprehensive metabolic 2000 panel - Serum or Plasma COMP METABOLIC PANEL Lab Routine IFG (impaired fasting glucose) Encounter for long-term current use of medication Expected: 02/15/2022 (Approximate), Expires: 04/17/2022 [facility] Work Phone: Comment on above: Expected: 02/15/2022 (Approximate), Expires: 04/17/2022 Start: 02-15-2022 End: 04-17-2022 Hemoglobin A1c in Blood HGB A1C Lab Routine IFG (impaired fasting glucose) Expected: 02/15/2022 (Approximate), Expires: 04/17/2022 [facility] Work Phone: Comment on above: Expected: 02/15/2022 (Approximate), Expires: 04/17/2022 Start: 02-15-2022 End: 04-17-2022 Lipid 1996 panel - Serum or Plasma LIPID PANEL BASIC Lab Routine Dyslipidemia Encounter for long-term current use of medication Expected: 02/15/2022 (Approximate), Expires: 04/17/2022 [facility] Work Phone: Comment on above: Expected: 02/15/2022 (Approximate), Expires: 04/17/2022 Start: 12-07-2021 Influenza vaccination INFLUENZA (#1) [facility] Start: 09-12-2021 COVID-19 VACCINE (5 - Booster for Moderna series) COVID-19 VACCINE (5 - Booster for Moderna series) [facility] Start: 04-08-2021 ADVANCE DIRECTIVE DISCUSSION ADVANCE DIRECTIVE DISCUSSION [facility] Start: 07-09-2017 End: 07-09-2017 Appointment Appointment [facility] Work Phone: Start: 01-08-2017 End: 07-20-2016 *Hepatic Function Panel *Hepatic Function Panel [facility] Work Phone: Start: 01-08-2017 End: 07-20-2016 Lipid panel [AGGREGATE] *Lipid Profile CC PCP [facility] Work Phone: Start: 07-10-2016 End: 07-10-2016 INVENTORY AND PRICING ASSOCIATE INVENTORY AND PRICING ASSOCIATE [facility] Work Phone: Start: 07-10-2016 End: 07-10-2016 Echocardiography Echocardiogram (complete) [facility] Work Phone: Start: 07-10-2016 End: 07-10-2016 Electrocardiogram, complete EKG (In office) [facility] Work Phone: Start: 07-10-2016 End: 07-10-2016 Follow Up Appt 1 year Follow Up Appt 1 year [facility] Work Phone: Start: 06-08-2016 End: 07-09-2016 *Hepatic Function Panel *Hepatic Function Panel [facility] Work Phone: Start: 06-08-2016 End: 07-09-2016 Lipid panel [AGGREGATE] *Lipid Profile CC PCP [facility] Work Phone: Start: 07-12-2015 End: 07-12-2015 INVENTORY AND PRICING ASSOCIATE INVENTORY AND PRICING ASSOCIATE [facility] Work Phone: Start: 07-12-2015 End: 07-12-2015 Follow Up Appt 1 year Follow Up Appt 1 year [facility] Work Phone: Start: 05-17-2015 End: 07-11-2015 *Hepatic Function Panel *Hepatic Function Panel [facility] Work Phone: Start: 05-17-2015 End: 07-11-2015 Lipid panel [AGGREGATE] *Lipid Profile CC PCP [facility] Work Phone: Start: 06-29-2014 End: 06-29-2014 INVENTORY AND PRICING ASSOCIATE INVENTORY AND PRICING ASSOCIATE [facility] Work Phone: Start: 06-29-2014 End: 06-29-2014 Follow Up Appt 1 year Follow Up Appt 1 year [facility] Work Phone: Start: 2014 End: 05-31-2014 *Hepatic Function Panel *Hepatic Function Panel [facility] Work Phone: Start: 2014 End: 05-31-2014 Lipid panel [AGGREGATE] *Lipid Profile CC PCP [facility] Work Phone: Start: 11-06-2013 End: 11-16-2013 *Hepatic Function Panel *Hepatic Function Panel [facility] Work Phone: Start: 11-06-2013 End: 11-16-2013 Lipid panel [AGGREGATE] *Lipid Profile CC PCP [facility] Work Phone: Start: 06-30-2013 End: 07-01-2013 Carotid duplex Carotid duplex [facility] Work Phone: Start: 06-30-2013 End: 06-30-2013 INVENTORY AND PRICING ASSOCIATE INVENTORY AND PRICING ASSOCIATE [facility] Work Phone: Start: 06-30-2013 End: 06-30-2013 Follow Up Appt 1 year Follow Up Appt 1 year [facility] Work Phone: Start: 11-26-2012 End: 05-25-2013 *Hepatic Function Panel *Hepatic Function Panel [facility] Work Phone: Start: 11-26-2012 End: 05-25-2013 Lipid panel [AGGREGATE] *Lipid Profile [facility] Work Phone: Start: 05-20-2012 End: 05-20-2012 Echocardiography Echocardiogram (complete) [facility] Work Phone: Start: 05-20-2012 End: 05-20-2012 Electrocardiogram, complete EKG (In office) [facility] [email or web address] Phone: Start: 05-20-2012 End: 05-20-2012 Follow Up Appt 1 year Follow Up Appt 1 year [facility] Work Phone: Start: 11-20-2011 End: 05-20-2012 *Hepatic Function Panel *Hepatic Function Panel [facility] Phone: Start: 11-20-2011 End: 11-20-2011 Follow Up Appt 6 months Follow Up Appt 6 months [facility] Phone: Start: 11-20-2011 End: 05-20-2012 Lipid panel [AGGREGATE] *Lipid Profile [facility] [facility] Work Phone: Start: 05-22-2011 End: 05-22-2011 Echocardiography Echocardiogram (complete) [employer] Phone: Start: 05-22-2011 End: 05-22-2011 Follow Up Appt 6 months Follow Up Appt 6 months [facility] Phone: Start: 2007 RSV Vaccine (1 - 1-d ose 60+ series) RSV Vaccine (1 - 1-dose 60+ series) [facility] Start: 05-22-2005 LIPID SCREEN LIPID SCREEN [facility] Start: 10-19-2003 DIABETES SCREEN DIABETES SCREEN [facility] Start: 05-22-2001 Hepatitis B surface antibody level LDL CHOLESTEROL [facility] Start: 1992 COLOGUARD (FIT-DNA) COLOGUARD (FIT-D NA) [facility] Start: 1992 Colonoscopy COLONOSCOPY [facility] Start: 1992 COLORECTAL CANCER SCREENING COLORECTAL CANCER SCREENING [facility] Start: [address] COLONOGRAPHY [facility] Start: 1992 FECAL OCCULT BLOOD FECAL OCCULT BLOO D [facility] Start: 1992 SIGMOIDOSCOPY SIGMOIDOSCOPY [facility] Start: 1965 BP CONTROLLED (<130/80) BP CONTROLLE D (<130/80) [facility] Start: 1965 [facility]: [facility] ABDOMINAL AORTIC ANE URYSM SCREENING ABDOMINAL AORTIC ANEURYSM SCREENING [facility] Cardioversion electi ve arrhythmia external CARDIOVERSION EXTERNAL ELECTIVE Persistent atrial fibrillation (HCC) [facility] End: 06-03-2025 CT Kidney WO and W contrast IV CT UROGRAM WO/W IVCON Radiology Routine Gross hematuria 1 Occurrences starting 05/04/2024 until 06/03/2025 [facility] Work Phone: Comment on above: 1 Occurrences starti ng 05/04/2024 until 06/03/2025 CT Kidney WO and W contrast IV CT UROGRAM WO/W IVCON Radiology Routine Gross hematuria 05/25/2024 3:58 PM EST [facility] Work Phone: End: 07-06-2025 CTA Chest vessels WO and W contrast IV CTA CHEST (GATED) WO/W IVCON Radiology Routine Persistent atrial fibrillation (HCC) At risk for stroke At risk for bleeding associated with anticoagulants Gross hematuria 1 Occurrences starting 06/06/2024 until 07/06/2025 [facility] Work Phone: Comment on above: 1 Occurrences starti ng 06/06/2024 until 07/06/2025 End: 07-13-2024 CTA Chest vessels WO and W contrast IV [facility] Work Phone: Comment on above: 1 Occurrences starti ng 07/13/2024 until 07/13/2024 CYTOLOGY NON-MEASURER CYTOLOGY NON-GY N Lab Routine Gross hematuria Malignant neoplasm of prostate (HCC) 05/28/2024 11:00 AM EST [facility] ECG COMPLETE [facility] Work Phone: Comment on above: Ordered: 04/02/2024 End: 11-18-2025 ECHO TRANSESOPHAGEAL ECHO TRANSESOPHAGEAL Cardiology Routine Presence of Watchman left atrial appendage closure device Paroxysmal atrial fibrillation (HCC) 1 Occurrences starting 11/18/2024 until 11/18/2025 [facility] Work Phone: Comment on above: 1 Occurrences starti ng 11/18/2024 until 11/18/2025 End: 02-16-2025 Echocardiography ECHO Cardiology Routine History of mitral valve repair 1 Occurrences starting 02/17/2024 until 02/16/2025 [facility] Comment on above: 1 Occurrences starti ng 02/17/2024 until 02/16/2025 Ephys evl trnsptl tx atrial fib isolat pulm vein COMPRE EP EVAL ABLTJ ATR FIB PULM VEIN ISOLATION Persistent atrial fibrillation (HCC) At risk for stroke At risk for bleeding associated with anticoagulants Gross hematuria [facility] Patient Education HYPERLIPIDEMIA , HYPERLIPIDEMIA, PREMATURE%20VENTRICULAR% 20CONTRACTIONS, HYPERLIPIDEMIA [facility] Work Phone: Perq clsr tcat l atr apndge w/endocardial implnt PERC TRANSCATH CLOSURE LEFT ATRIAL APPENDAGE W/IMPLANT,INCLUSIVE OF FLUORO,TRANSEPTAL PUNCTURE,CATH PLACEMENT(S) ANGIO,WHEN PERFORMED,RAD S&I Persistent atrial fibrillation (HCC) At risk for stroke At risk for bleeding associated with anticoagulants Gross hematuria [facility] End: 07-10-2022 Prostate specific Ag [Mass/volume] in Serum or Plasma PSA/PROSTSPECAG DIAG Lab Routine Malignant neoplasm of prostate (HCC) Every 6 months for 30 Occurrences starting 07/10/2021 until 07/10/2022 [facility] Work Phone: Comment on above: Every 6 months for 3 0 Occurrences starting 07/10/2021 until 07/10/2022 End: 02-14-2024 Us retroperitoneal real time w/image limited US ABD AORTA Radiology Routine General weakness Encounter for screening for abdominal aortic aneurysm (AAA) in patient 50 years of age or older with history of smoking 1 Occurrences starting 01/15/2023 until 02/14/2024 [facility] Work Phone: Comment on above: 1 Occurrences starti ng 01/15/2023 until 02/14/2024 [facility] Immunizations Immunization Date Immunization Notes Care Provider Fa lavelle 02-05-2024 respiratory syncytia l virus (RSV) vaccine, adjuvanted (AREXVY) Trey Guzman MD Work Phone: [facility] 02-05-2024 Seasonal trivalent influenza vaccine, adjuvanted, preservative free Trey Guzman MD Work Phone: [facility] 02-05-2024 influenza virus vaccine, unspecified formulation Trey Guzman MD Work Phone: [facility] 02-05-2023 influenza (aIIV4) vaccine, age 65+ yr, quadrivalent, PF (FLUAD QUAD) Johnnie Ross MD Work Phone: [facility] 02-05-2023 influenza virus vaccine, unspecified formulation Haja Juarez APRN.CNP Work Phone: [facility] 01-29-2022 COVID-19 vaccine, ag e 12+ yr, bivalent (MODERNA) Trey Guzman MD Work Phone: [facility] 01-28-2022 COVID-19 vaccine, ag e 12+ yr, bivalent (MODERNA) Johnnie Ross MD Work Phone: [facility] 01-06-2022 influenza, high-dose , quadrivalent vaccine (FLUZONE HIGH DOSE QUADRIVALENT) Immunization Ghada Work Phone: [facility] 01-06-2022 influenza virus vaccine, unspecified formulation Johnnie Ross MD Work Phone: [facility] 07-18-2021 COVID-19 original vaccine, full dose, monovalent (MODERNA) Johnnie Ross MD Work Phone: [facility] 02-07-2021 COVID-19 original vaccine, full dose, monovalent (MODERNA) Johnnie Ross MD Work Phone: [facility] 01-14-2021 influenza, high-dose , quadrivalent vaccine (FLUZONE HIGH DOSE QUADRIVALENT) Jose Tafoya RN [facility] 06-06-2020 COVID-19 original vaccine, full dose, monovalent (MODERNA) Johnnie Ross MD Work Phone: [facility] 2020 COVID-19 original vaccine, full dose, monovalent (MODERNA) Johnnie Ross MD Work Phone: [facility] 04-06-2020 zoster vaccine recombinant Jose Tafoya RN [facility] Work Phone: 02-05-2020 zoster vaccine recombinant Jose Tafoya RN [facility] Work Phone: 01-30-2020 influenza, high-dose , quadrivalent vaccine (FLUZONE HIGH DOSE QUADRIVALENT) Jose Tafoya RN [facility] 01-06-2019 influenza, seasonal, injectable Johnnie Ross MD Work Phone: [facility] 12-24-[address] Jackson Field Work Phone: [facility] 12-24-2017 influenza, high dose seasonal, preservative-free Trey Guzman MD Work Phone: [facility] 12-24-2017 influenza, seasonal, injectable, preservative free Johnnie Ross MD Work Phone: [facility] 12-24-2017 influenza-mark H5 virus vaccine, unspecified formulation Trey Guzman MD Work Phone: [facility] 04-23-2017 tetanus toxoid, redu darya diphtheria toxoid, and acellular pertussis vaccine, adsorbed Jose Tafoya RN [facility] Work Phone: 01-14-[address] Jackson Field Work Phone: [facility] 01-14-2017 influenza, seasonal, injectable, preservative free Johnnie Ross MD Work Phone: [facility] 01-14-2017 influenza-mark H5 virus vaccine, unspecified formulation Trey Guzman MD Work Phone: [facility] 01-08-2017 influenza, seasonal, injectable Johnnie Ross MD Work Phone: [facility] 04-17-2016 pneumococcal polysaccharide vaccine, 23 valent Jose Tafoya RN [facility] Work Phone: 01-25-2015 influenza, seasonal, injectable Johnnie Ross MD Work Phone: [facility] 01-25-2015 pneumococcal conjuga te vaccine, 13 kirstie Tafoya RN [facility] Work Phone: 04-08-2014 zoster vaccine, live Johnnie gutierres MD Work Phone: [facility] 02-17-2013 influenza, seasonal, injectable Johnnie Ross MD Work Phone: [facility] 12-21-[address] Jackson Field Work Phone: [facility] 12-21-2012 influenza, seasonal, injectable, preservative free Johnnie Ross MD Work Phone: [facility] 12-21-2012 influenza-mark H5 virus vaccine, unspecified formulation Trey Guzman MD Work Phone: [facility] Payers Date Payer Category Payer Unknown [id number] 2024 Self-pay [id number] 2019 Private Health Insurance [id number] 2019 Unknown MMO MMO MEDICARE SUPPLEMENT [id number] 2019-Present [phone] [address] [place] [address] Indemnity [id number] 2019 Unknown [id number] 2019 Unknown [id number] 2014 Unknown [id number] 2012 Medicare MEDICARE MEDICAR E A AND B [id number] 2012-Present [phone] [address] [address] [place] [address] Medicare [id number] 2012 Medicare [id number] 2012 Medicare [id number] Medicare [id number] Unknown [id number] Unknown [id number] Unknown [id number] Unknown [id number] Unknown [id number] Unknown [id number] Unknown [id number] Unknown [id number] Unknown [id number] Social History Date Type Detail Facility Start: 05-28-2017 End: 04-06-2024 Tobacco smoking status IDIS Ex-smoker [facility] Work Phone: Start: 04-08-1968 End: 04-08-1974 History of tobacco use Current smoker [facility] Work Phone: Start: 04-08-1968 End: 04-08-1974 History of tobacco use Cigarette Smoker [facility] Work Phone: Start: 04-08-1968 End: 04-08-1974 History of tobacco use Pipe Smoker [facility] Work Phone: Start: 05-28-2017 End: 02-17-2024 Tobacco use and exposure Smokeless tobacco non-user [facility] Work Phone: Start: 06-26-2021 End: 11-10-2024 Alcohol intake Current drinker of alcohol (finding) [facility] Start: 03-14-2020 End: 06-26-2021 Alcohol intake [facility] Start: 06-25-2021 History SDOH Alcohol Frequency 5 [facility] Start: 06-25-2021 End: 02-18-2022 History SDOH Alcohol Std Drinks 1 [facility] Start: 06-13-2021 History SDOH Alcohol Comment glass of red wine with dinner daily [facility] Start: 06-25-2021 History SDOH Social Connections Phone 3 [facility] Start: 06-25-2021 End: 02-18-2022 History SDOH Social Connections Get Together 2 [facility] Start: 06-25-2021 History SDOH Physical Activity DPW 0 [facility] Start: 05-28-2017 End: 05-18-2022 Tobacco Comment very light, social smoking; also smoked a pipe [facility] Start: 1945 Sex Assigned At Male [facility] Start: 06-16-2021 End: 02-20-2022 Exposure to SARS-CoV-2 (event) Not sure [facility] Work Phone: Start: 08-22-2021 Tobacco smoking status NHIS Unknown if ever smoked [facility] Work Phone: Start: 03-14-2020 End: 08-20-2022 Social connection and isolation panel [facility] Do you belong to any clubs or organizations such as quaker groups, unions, fraternal or athletic groups, or school groups? Yes [facility] Are you now , , , , never or living with a partner? [facility] How often to you hav e a drink containing alcohol? 2-3 time sa week [facility] How many standard dr inks containing alcohol do you have on a typical day? 1 or 2 [facility] How often do you hav e 6 or more drinks on 1 occasion? Never [facility] Start: 03-09-2012 How hard is it for you to pay for the very basics like food, housing, medical care, and heating Not hard at all [facility] Do you feel stress - tense, restless, nervous, or anxious, or unable to sleep at night because your mind is troubled all the time - these days [OSQ] Not at all [facility] (I/We) worried wheth er (my/our) food would run out before (I/we) got money to buy more. Never true [facility] In the past 12 month s, was there a time when you were not able to pay the mortgage or rent on time? No [facility] Start: 12-18-2020 Gender identity Identifies as male gender (finding) [facility] Start: 12-18-2020 Sexual orientation Heterosexual (finding) [facility] Start: 04-23-2017 Alcohol Alcohol [facility] Start: 04-23-2017 Lives Lives [facility] Medical Equipment Procedure Code Equipment Code Equipment Origin al Text Equipment Identifier Dates Seed Brachysourc e Iodine-125 Brachytherapy Calibrate Prostate - [id number] Start: 06-15-2021 Comment on above: Description: Sources : 97 [place]: 31 Goals Date Patient Goal Desired Activity /State Personal health goal Personal health goal Personal health goal Functional Status Date Assessment Result Facility 11-18-2024 Are you deaf, or do you have serious difficulty hearing No 11/18/2024 11:30 AM Monalisa Islas RN [facility] 11-18-2024 Are you blind, or do you have serious difficulty seeing, even when wearing glasses No 11/18/2024 11:30 AM Monalisa Islas, TIMMY No [facility] 11-18-2024 Do you have serious difficulty walking or climbing stairs No 11/18/2024 11:30 AM Monalisa Islas RN [facility] 11-18-2024 Do you have difficul ty dressing or bathing No 11/18/2024 11:30 AM Monalisa Islas, TIMMY [facility] 11-18-2024 Because of a physica l, mental, or emotional condition, do you have difficulty doing errands alone such as visiting a physician's office or shopping No 11/18/2024 11:30 AM EDT Monalisa Vazquez RN No [facility] Mental Status Date Assessment Result Facility 11-18-2024 Because of a physica l, mental, or emotional condition, do you have serious difficulty concentrating, remembering, or making decisions No 11/18/2024 11:30 AM EDT Monalisa Vazquez RN No [facility] Clinical Notes 10-04-2000 to 02-17-2025 Telephone Encounter - TyronjocelynJazmin - 12/03/2024 2:30 PM EDTTelephone Encounter - Jazmin Olmstead - 12/03/2024 2:30 PM EDTTelephone Encounter - Aline Vazquez APRN.HOME HEALTH CLINICIAN - 11/25/2024 5:08 PM EDT Note Date & Type Note Facility 02-17-2025 Note HNO ID: [id number] Author: AYANNA RIVAS RN Service: ? Author Type: Registered Nurse Type: Patient Education Filed: 02/17/2025 10:10 Note Text: Patient educated on 7 day patch monitor, and verbalizes understanding. [facility] 01-19-2025 Progress note [facility] 01-06-2025 Note HNO ID: [id number] Author: ALINE VAZQUEZ APRN.HOME HEALTH CLINICIAN Service: ? Author Type: Nurse Practitioner Type: Progress Notes Filed: 01/06/2025 16:38 Note Text: [facility] Cardiology Electrophysiology PRIMARY CARE PHYSICIAN: Johnnie Ross [address] [place] [address] CHIEF COMPLAINT: Cardiovascular medicine follow up for arrhythmia and Watchman. HISTORY OF PRESENT ILLNESS: Mr. Mckeon is a 79 year old male who presents today for follow-up regarding arrhythmia and Watchman. The patient is a 79-year-old male with a history of mitral valve disease, atrial fibrillation, and recent Watchman device implantation and catheter ablation, presenting for follow-up. The patient underwent mitral valve repair in 2000. In late March 2017 or early April 2017, he experienced significant fatigue and was diagnosed with atrial fibrillation with RVR. He was admitted to [facility], treated with IV heparin and amiodarone, and underwent YURIDIA-guided cardioversion. Atrial fibrillation recurred within a week, necessitating a second cardioversion. Due to challenges with bradycardia, catheter ablation was recommended, but he initially deferred the procedure. On 11/17/2024, he underwent catheter ablation and Watchman device implantation. Post-procedure, he was discharged on Xarelto 20 mg daily and aspirin EC 81 mg daily. A YURIDIA on 01/01/2025 showed no bruno-device leak or device-related thrombus. He reports feeling sluggish but denies chest pain, dyspnea, lightheadedness, or dizziness. He notes occasional sensations of fullness in the chest, similar to experiences during long-distance running. He denies any recent bleeding issues on Xarelto and has not experienced recurrent hematuria. He received flu and COVID-19 vaccinations recently and took Tylenol and Advil for mild symptoms afterward, feels better today. He does not use CPAP for sleep apnea but manages symptoms by sleeping on his side and using Nasacort. He is currently taking Xarelto 20 mg in the evening and aspirin EC 81 mg daily. 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 Langston ([facility]) in 2008, considered to be benign PVCs; improved with beta-michell but developed fatigue, then treated with verapamil Presence of Watchman left atrial appendage closure device 24 mm [employer] Watchman Pro FLX left atiral appendage closure device implanted 11/17/2024 Prostate cancer (HCC) followed by Dr. 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 Guzman ATRIAL FIBRILLATION/FLUTTER ABLATION Right 11/17/2024 typical right atrial flutter circuit (cavotricuspid isthmus) RF catheter ablation; [facility] Dr. Guzman CARDIAC CATH 06/23/2008 reportedly minimal CAD CARDIAC CATH 06/23/2008 LVEF 55%; LAD 10% prox, D1 20-30% ostial, LCX normal, RCA 10-20% prox, right AV branch 10-20%, right PL branch 10-20% CARDIAC STRESS TEST 06/16/2008 no stress-induced myocardial ischemia CARDIOVERSION, ELECTIVE, ELECTRICAL 04/24/2017 CARDIOVERSION, ELECTIVE, ELECTRICAL 04/30/2017 CARDIOVERSION, ELECTIVE, ELECTRICAL 12/14/2024 CATARACT EXTRACTION HX Left 10/2016 CATARACT EXTRACTION HX Right 11/2016 COLONOSCOPY FLX DX W/COLLJ SPEC WHEN PFRMD 08/28/2005 Colonoscopy ECHOCA (more content not included)... [facility] 12-03-2024 Telephone encounter Note Patient is scheduled for a cardioversion on 12/[address] Guzman. The hospital will call the day before between 2-5pm with your arrival time. You should not eat or drink after midnight the night before the procedure. 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 You should continue to take medications as prescribed the morning of the procedure with just a sip of water. Spoke with Ryley Mckeon on December 03, 2024. Informed of instructions as stated above. Patient verbalized understanding. Jazmin Olmstead [facility] 12-03-2024 Miscellaneous Notes Patient is scheduled for a cardioversion on 12/[address] Guzman. The hospital will call the day before between 2-5pm with your arrival time. You should not eat or drink after midnight the night before the procedure. 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 You should continue to take medications as prescribed the morning of the procedure with just a sip of water. Spoke with Ryley Mckeon on December 03, 2024. Informed of instructions as stated above. Patient verbalized understanding. Jazmin Olmstead documented in this encounter [facility] 11-25-2024 Telephone encounter Note Steve was called today for 1 week post watchman follow-up (also had PFA at time of Watchman impalnt), he continues to take Xarelto 20 mg daily and aspirin EC 81 mg daily without any bleeding issues, states his groin sites healed up well. He reports experiencing some weakness with the atrial team flutter episode in progress. He is asking if he should go back on the metoprolol, we discussed the metoprolol was discontinued due to bradycardia and junctional rhythm post ablation, will await for Dr. Guzman to review and likely plan for cardioversion. Reminded Steve of 45-day post watchman YURIDIA scheduled 01/01/2025, appointment to review results 01/06/2025 and 6-month follow-up with Dr. Guzman 05/21/2025. Steve verbalizes understanding and will call in the interim with any questions or concerns. Aline Vazquez APRN.EMILIA [facility] 11-25-2024 Miscellaneous Notes Steve was called today for 1 week post watchman follow-up (also had PFA at time of Watchman impalnt), he continues to take Xarelto 20 mg daily and aspirin EC 81 mg daily without any bleeding issues, states his groin sites healed up well. He reports experiencing some weakness with the atrial team flutter episode in progress. He is asking if he should go back on the metoprolol, we discussed the metoprolol was discontinued due to bradycardia and junctional rhythm post ablation, will await for Dr. Guzman to review and likely plan for cardioversion. Reminded Steve of 45-day post watchman YURIDIA scheduled 01/01/2025, appointment to review results 01/06/2025 and 6-month follow-up with Dr. Guzman 05/21/2025. Steve verbalizes understanding and will call in the interim with any questions or concerns. Aline Vazquez APRN.CNP documented in this encounter [facility] 11-24-2024 Note HNO ID: [id number] Author: ALINE VAZQUEZ APRN.CNP Service: ? Author Type: Nurse Practitioner Type: Progress Notes Filed: 11/24/2024 17:01 Note Text: Reviewed EKG, appears to be atrial flutter with variable AV block, 117 bpm, seems as though the arrhythmia has been persistent based on the recent telephone encounter. He underwent combined ablation (PFA PVI and RF atrial flutter) at time of Watchman procedure with Dr. Guzman 11/17/2024, he may need cardioverted. If patient is agreeable we will have Dr. Guzman review and place procedure request. Thank you. Aline Vazquez APRN.CNP [facility] 11-24-2024 History of Present illness Narrative Reviewed EKG, appears to be atrial flutter with variable AV block, 117 bpm, seems as though the arrhythmia has been persistent based on the recent telephone encounter. He underwent combined ablation (PFA PVI and RF atrial flutter) at time of Watchman procedure with Dr. Guzman 11/17/2024, he may need cardioverted. If patient is agreeable we will have Dr. Guzman review and place procedure request. Thank you. Aline Vaqzuez APRN.CNP EKG reviewed. Clarita Mondragon RN documented in this encounter [facility] 11-24-2024 Note HNO ID: [id number] Author: CLARITA MONDRAGON RN Service: ? Author Type: Registered Nurse Type: Progress Notes Filed: 11/24/2024 17:01 Note Text: EKG reviewed. Clarita Mondragon RN [facility] 11-23-2024 Telephone encounter Note Spoke with patient about recommendation to have EKG. Patient verbalizes understanding and is agreeable. Patient is scheduled for EKG at [facility] on 11/24/2024 at 2pm- patient aware of EKG date/time. Ashlie Juarez LPN [facility] 11-23-2024 Miscellaneous Notes Spoke with patient about recommendation to have EKG. Patient verbalizes understanding and is agreeable. Patient is scheduled for EKG at [facility] on 11/24/2024 at 2pm- patient aware of EKG date/time. Ashlie Juarez LPN Please have him get an EKG, either in our office or I can enter the order if he would like to have it completed at one of the satellite locations. Thank you. Aline Vazquez APRN.HOME HEALTH CLINICIAN Patient called [facility] to report heart rate over the last 2 days has been ranging 100-120 consistently, along with some fatigue. Patient had Watchman implanted with PFA atrial fibrillation and RF atrial flutter ablation on 11/17/2024. Patient has upcoming appointment on 01/06/2025. Ashlie Juarez LPN documented in this encounter [facility] 11-23-2024 Telephone encounter Note Please have him get an EKG, either in our office or I can enter the order if he would like to have it completed at one of the satellite locations. Thank you. Aline Vazquez APRN.EMILIA [facility] 11-23-2024 Telephone encounter Note Patient called [facility] to report heart rate over the last 2 days has been ranging 100-120 consistently, along with some fatigue. Patient had Watchman implanted with PFA atrial fibrillation and RF atrial flutter ablation on 11/17/2024. Patient has upcoming appointment on 01/06/2025. Ashlie Juarez LPN [facility] 11-18-2024 Telephone encounter Note Order signed. Aline Vazquez APRN.EMILIA [facility] 11-18-2024 Miscellaneous Notes Order signed. Aline Vazquez APRN.EMILIA You are scheduled for a 45 day Post Watchman YURIDIA on 01/01 You will receive a call from [facility] the day before your YURIDIA between 2-5pm with your arrival time for the following morning. You should have nothing to eat or drink after midnight the night before the YURIDIA. Please continue to take your medications as prescribed unless otherwise instructed by your physician(s). This is an outpatient procedure and you will need someone to drive you home once released. You are scheduled for a post YURIDIA follow up on 01/06 at 2:30p You are scheduled for a 3 month post Ablation monitor on 02/17 at 10:30a You are also scheduled for a 6 month follow up on 05/21/25 at 11am If you have any questions, please call the office at [phone] Thank you Please arrange 45 day post watchman YURIDIA 01/01/2025. Patient had Watchman implanted with PFA atrial fibrillation and RF atrial flutter ablation, procedures performed by Dr. Guzman 11/17/2024. Please arrange follow up within a week of YURIDIA to review results and 6 month follow up with Dr. Guzman or [facility]. He will be discharged today. Thank you. Aline Vazquez APRN.EMILIA documented in this encounter [facility] 11-18-2024 Note HNO ID: [id number] Author: ALINE VAZQUEZ APRN.CNP Service: Electrophysiology Author Type: Nurse Practitioner Type: Plan of Care Filed: 11/18/2024 13:28 Note Text: Patient has some bleeding at right groin site after ambulating this AM following suture removal, pressure was held, hemostasis achieved, placed on bedrest. After bedrest he ambulated and again had oozing at right groin site, pressure held, continued to ooze, subsequently injected site with 6 cc epi lido and placed back on bedrest. If site is okay after 2 hours of bedrest and then ambulation, he can be discharged and remove the folded 4 x 4 with Tegaderm tomorrow, 11/19/2024. Reviewed with patient and bedside RN. Aline Vazquez APRN.HOME HEALTH CLINICIAN [facility] 11-18-2024 Telephone encounter Note You are scheduled for a 45 day Post Watchman YURIDIA on 01/01 You will receive a call from [facility] the day before your YURIDIA between 2-5pm with your arrival time for the following morning. You should have nothing to eat or drink after midnight the night before the YURIDIA. Please continue to take your medications as prescribed unless otherwise instructed by your physician(s). This is an outpatient procedure and you will need someone to drive you home once released. You are scheduled for a post YURIDIA follow up on 01/06 at 2:30p You are scheduled for a 3 month post Ablation monitor on 02/17 at 10:30a You are also scheduled for a 6 month follow up on 05/21/25 at 11am If you have any questions, please call the office at [phone] Thank you [facility] 11-18-2024 Telephone encounter Note Please arrange 45 day post watchman YURIDIA 01/01/2025. Patient had Watchman implanted with PFA atrial fibrillation and RF atrial flutter ablation, procedures performed by Dr. Guzman 11/17/2024. Please arrange follow up within a week of YURIDIA to review results and 6 month follow up with Dr. Guzman or [facility]. He will be discharged today. Thank you. Aline Vazquez APRN.HOME HEALTH CLINICIAN [facility] 11-17-2024 Note HNO ID: [id number] Author: ROSALINA RAMIRES APRN.SIGNS AND DISPLAYS SALESPERSON Service: ? Author Type: Nurse Hydraulic Plumber Helper Type: Anesthesia Procedure Notes Filed: 11/17/2024 09:03 Note Text: ANESTHESIOLOGY PROCEDURE NOTE Airway General Information Procedure Start Time/Medication Administration: 11/17/2024 8:49 AM Procedure End Time: 11/17/2024 8:49 AM Patient location during procedure: OR Patient identity confirmed: arm band, care application development team lead and patient Staffing Anesthesiologist: Kayleen Truong MD SIGNS AND DISPLAYS SALESPERSON: Rosalina Ramires APRN.SIGNS AND DISPLAYS SALESPERSON Performed by: SIGNS AND DISPLAYS SALESPERSON Indications and Patient Condition Indications for airway management: anesthesia Preoxygenated: yes anesthesia circuit Patient position: sniffing Method: sleep Difficult Mask: No Final Airway Details Final airway type: endotracheal airwayFinal Endotracheal Airway: ETT Cuffed: yes Successful intubation technique: direct laryngoscopy Endotracheal tube insertion site: oral Blade: Scott Blade size: #4 ETT size (mm): 7.5 Measured from: lips Measurement (cm): 22 Placement verified by: capnometry Cormack-Lehane Classification: grade I - full view of glottis Number of attempts at approach: 1 Failed airway: no Unrecognized esophageal intubation: no Airway not difficult SIGNATURE: Rosalina Ramires APRN.CRNA PATIENT NAME: Ryley Mckeon DATE: November 17, 2024 TIME: 9:02 AM CSN: [id number] [facility] 11-17-2024 Note HNO ID: [id number] Author: TREY GUZMAN MD Service: Electrophysiology Author Type: Physician Type: Progress Notes Filed: 11/17/2024 08:34 Note Text: [facility] Electrophysiology (EP) EP Attending Mr. Mckeon presents for scheduled procedures: YURIDIA guided Watchman device implant, atrial fibrillation catheter ablation. HANDP reviewed, patient seen and examined pre-procedure. No substantial changes unless otherwise indicated. He reports no substantial changes since last evaluation. He wishes to proceed, all questions answered. Huddle completed with patient and caregiver teams. The HANDP is located in [facility] encounter dated 11/11/2024 Pre Surgical Department. Also see Dr. Guzman's office notes in [facility]. I had a detailed discussion with Mr. Mckeon regarding my evaluation and recommendations. After our discussion, Mr. Mckeon expressed his understanding and I answered all his questions to his apparent satisfaction. He agrees to proceed as scheduled. INFORMED CONSENT The risks, benefits and anticipated outcomes of the procedure, the risks and benefits of the alternatives to the procedure and the roles and tasks of the personnel to be involved were discussed with the patient. Consent for the procedure and agreement to proceed has been obtained. I verify that I personally obtained the consent. CHADS2-Vasc Score Breakdown 4 Total Score 2 Age >= 75 years old 1 History of hypertension 1 History of vascular disease HAS-BLED score: 2 points (prior bleeding -- hematuria, age > 65 years) MODIFIED VARGAS SCORE: 1 = No significant disability w/ symptoms. All usual activities/duties. Trey Guzman MD November 17, 2024 8:30 AM [facility] 11-16-2024 Instructions Keon Kelley APRN.CNP - 11/16/2024 12:08 PM EDT We discussed your prostate cancer and PSA monitoring: - Your PSA levels remain stable and very low at 0.18, which is excellent. - Continue PSA testing every 6 months for the first 5 years after your brachytherapy (until 2026), then annually for the following 5 years. - I have placed a PSA lab order for late April or May 2023. Please complete this test before your next visit. - If you move to [place] in July 2023, we can continue follow-up care virtually. You can complete PSA testing locally, either through your primary care provider or by requesting a mailed lab order from us. Results can be faxed to our office. We discussed your urinary health: - You reported waking up once at night to urinate and going to the bathroom twice during the day, with no current blood in your urine or pain during urination. - You had a cystoscopy 4-5 months ago, which showed no concerning findings. Hematuria at that time was likely related to Xarelto and resolved on its own. - Continue monitoring for any new or worsening urinary symptoms, such as blood in the urine, pain, or incontinence, and let us know if these occur. We discussed erectile dysfunction: - I have placed a referral to urology for further evaluation and management of erectile dysfunction. You will need to call central scheduling to make an appointment. This referral is valid for one year. - I have also sent a message to our sex therapist, who specializes in working with cancer survivors. She will contact you through Collect to arrange a virtual appointment at your convenience. You may choose to schedule this after your cardiac procedures and recovery. Next steps: - follow-up appointment with me in May 2023. This can be an in-person or virtual visit, depending on your preference and location at that time. - If you have any questions or concerns before then, please send me a message through Collect. Thank you for your time today. documented in this encounter [facility] 11-10-2024 Note HNO ID: [id number] Author: ARACELI LAURA MD Service: ? Author Type: Physician Type: Progress Notes Filed: 12/04/2024 19:40 Note Text: Chief Complaint: Prostate cancer on Active surveillance History of Present Illness: Ryley Mckeon is a very pleasant 79 year old male who presents with a history of GG2 prostate cancer diagnosed 03/2020 with PSA rise to 7.27, initially on Active surveillance previously followed by Dr. Lin however developed rise in PSA and underwent I-125 seed implantation on 06/15/2021. Patient on Xarelto for Afib. He did have gross hematuria 05/28/2024, cysto was normal, CTU with no upper tract disease. He is following with radiation oncology, last visit was today, PSA 0.18 08/22/2024, plan to follow up in 6 months with PSA Patient reports feeling well no issues Denies Any LUTS . He denies dysuria, incontinence, urgency, or current hematuria. He had an episode of hematuria 4-5 months ago, attributed to Xarelto, which resolved spontaneously. Patient has a history of AF and has undergone three cardioversions, with the most recent resulting in bradycardia (HR 41 bpm). He is currently on metoprolol and Xarelto. He is scheduled for a Watchman device implantation and pulse field ablation on November 17, 2022, by Dr. Guzman at the [facility]. He has tried Cialis but with minimal effect 05/2019 prostate bx, Annet[place] 3+3, was on PSA kaylyn to 7.27 on 09/2020: MRI 0.6 cm P4 lesion, L mid PZ, no EPE, no LA or bone mets, 46 cc 01/26: repeat biopsy Gl 3+4, T1c, 4/4 cores positive, GG2, 95% PSA (ng/mL) Date Value 08/22/2024 0.18 04/29/2024 0.18 08/10/2023 0.37 05/13/2023 0.41 04/25/2021 6.63 Allergies: Hydrocodone, Oxycodone, and Percocet [Oxycodone-Acetaminophen] Physical Exam: Patient is a 79 year old male Constitutional: Vitals: There were no vitals taken for this visit. General Appearance Adult: Alert, no acute distress, oriented Labs and Pathology: As Above Assessment and Plan: Assessment: 79 year old male who presents with a history of GG2 prostate cancer previously followed by Dr. Lin s/p I-125 seed implantation on 06/15/2021. Patient on Xarelto for Afib, with plan for Watchman procedure next week, He did have gross hematuria 05/28/2024, cysto was normal, CTU with no upper tract disease. Last PSA 0.18 stable from 04/29/2024 Plan: - Repeat PSA in 6 months - Follow up with Rad Onc - Failed Cialis, discussed ICI, patient will think about it and get back to us Julia Rodriguez MD Urology PGY5 I agree with the Chief Complaint, ROS, and Past Histories independently gathered by the clinical technical support technician including scribe and or medical student and or KATHRINE and or resident or fellow and the remaining scribed note accurately describes my personal service to the patient. Araceli Laura MD, MS [facility] Department of Urology [facility] 11-10-2024 History of Present illness Narrative Chief Complaint: Prostate cancer on Active surveillance History of Present Illness: Ryley Mckeon is a very pleasant 79 year old male who presents with a history of GG2 prostate cancer diagnosed 03/2020 with PSA rise to 7.27, initially on Active surveillance previously followed by Dr. Lin however developed rise in PSA and underwent I-125 seed implantation on 06/15/2021. Patient on Xarelto for Afib. He did have gross hematuria 05/28/2024, cysto was normal, CTU with no upper tract disease. He is following with radiation oncology, last visit was today, PSA 0.18 08/22/2024, plan to follow up in 6 months with PSA Patient reports feeling well no issues Denies Any LUTS . He denies dysuria, incontinence, urgency, or current hematuria. He had an episode of hematuria 4-5 months ago, attributed to Xarelto, which resolved spontaneously. Patient has a history of AF and has undergone three cardioversions, with the most recent resulting in bradycardia (HR 41 bpm). He is currently on metoprolol and Xarelto. He is scheduled for a Watchman device implantation and pulse field ablation on November 17, 2022, by Dr. Guzman at the [facility]. He has tried Cialis but with minimal effect 05/2019 prostate bx, [place] 3+3, was on PSA kaylyn to 7.27 on 09/2020: MRI 0.6 cm P4 lesion, L mid PZ, no EPE, no LA or bone mets, 46 cc 01/26: repeat biopsy Gl 3+4, T1c, 4/4 cores positive, GG2, 95% PSA (ng/mL) Date Value 08/22/2024 0.18 04/29/2024 0.18 08/10/2023 0.37 05/13/2023 0.41 04/25/2021 6.63 Allergies: Hydrocodone, Oxycodone, and Percocet [Oxycodone-Acetaminophen] Physical Exam: Patient is a 79 year old male Constitutional: Vitals: There were no vitals taken for this visit. General Appearance Adult: Alert, no acute distress, oriented Labs and Pathology: As Above Assessment and Plan: Assessment: 79 year old male who presents with a history of GG2 prostate cancer previously followed by Dr. Lin s/p I-125 seed implantation on 06/15/2021. Patient on Xarelto for Afib, with plan for Watchman procedure next week, He did have gross hematuria 05/28/2024, cysto was normal, CTU with no upper tract disease. Last PSA 0.18 stable from 04/29/2024 Plan: - Repeat PSA in 6 months - Follow up with Rad Onc - Failed Cialis, discussed ICI, patient will think about it and get back to us Julia Rodriguez MD Urology PGY5 I agree with the Chief Complaint, ROS, and Past Histories independently gathered by the clinical technical support technician including scribe and or medical student and or KATHRINE and or resident or fellow and the remaining scribed note accurately describes my personal service to the patient. Araceli Laura MD, MS [facility] Department of Urology [facility] documented in this encounter [facility] 11-10-2024 History of Present illness Narrative Radiation Oncology - Follow Up Note PATIENT NAME: Ryley Mckeon PATIENT DIAGNOSIS: 79 yo gentleman with hx of adenocarcinoma of the prostate, initial PSA of 7.27 ng/mL, [place] of 3+4=7. Status post I-125 seed implantation on 06/15/2021. INTERVAL HISTORY: The patient presents for routine follow-up 6 months after having last been seen. Patient with a history of atrial fibrillation (AF) and urinary retention was diagnosed with prostate cancer. In 2013, he underwent a TURP at [facility] due to urinary retention, with post-void residuals of 600 cc. In 2016, his PSA levels were noted to be elevated at 7.27 ng/mL, and a nodule was palpated on examination. He was initially advised against brachytherapy due to his history of TURP. However, after consulting with Dr. Tejeda, he was deemed a candidate for brachytherapy. He underwent a biopsy and imaging, followed by brachytherapy on June 15, 2021, performed by Dr. Zayas and Dr. Bell at [facility]. Recent History: Patient reports stable urinary symptoms, with nocturia once per night and daytime frequency of twice per day. He denies dysuria, incontinence, urgency, or current hematuria. He had an episode of hematuria 4-5 months ago, attributed to Xarelto, which resolved spontaneously. A cystoscopy performed by Dr. Lin showed no abnormalities. He is not taking Flomax and reports regular bowel movements without hematochezia. He denies current use of medications for erectile dysfunction, noting that previous use of Cialis did not make him feel well. He expresses interest in addressing erectile dysfunction. Patient has a history of AF and has undergone three cardioversions, with the most recent resulting in bradycardia (HR 41 bpm). He is currently on metoprolol and Xarelto. He is scheduled for a Watchman device implantation and pulse field ablation on November 17, 2022, by Dr. Guzman at the [facility]. PSA HISTORY: PSA (ng/mL) Date Value 08/22/2024 0.18 04/29/2024 0.18 08/10/2023 0.37 05/13/2023 0.41 04/25/2021 6.63 PSA, Percent Free (%) Date Value 04/25/2021 12 ALLERGIES Allergen Reactions Hydrocodone Vomiting Oxycodone Vomiting Percocet [Oxycodone* GI Upset MEDICATION, NON-DATABASE Take 1 capsule by mouth once daily. Zinc complex with quercetin and vitamin C amoxicillin (AMOXIL) 500 mg capsule Take by mouth four times daily. Prior to dental appointment losartan (COZAAR) 50 mg tablet Take 1 tablet by mouth once daily. (Dr. Nelson) atorvastatin (LIPITOR) 40 mg tablet Take 1 tablet by mouth once daily. (Dr. Nelson) (Patient taking differently: Take 40 mg by mouth daily at bedtime. (Dr. Nelson)) iv contrast (will be provided with radiology test) CT Urogram WO/W Inject, intravenously, once for 1 dose.No IV access, insert saline lock prior to the beginning of sedation, infusion, injection of imaging exam. Discontinue saline lock post exam. If Pt. has a central line or IVAD, may access for administration according to line specific nursing protocol. Once exam is complete flush line and de-access according to line specific nursing protocol in the CT contrast administration guidelines link. metoprolol tartrate, short acting, (LOPRESSOR) 25 mg tablet Take 25 mg by mouth two times a day. Morning and night buPROPion XL (WELLBUTRIN XL) 300 mg 24 hr tablet Take 1 tablet by mouth once daily. XARELTO 20 mg tablet Take 20 mg by mouth daily at bedtime. coenzyme Q10 (COENZYME Q-10) 100 mg cap capsule Take 100 mg by mouth once daily. triamcinolone acetonide (NASACORT NASAL) Use in the nose once daily. BIOTIN ORAL Take 5,000 mcg by mouth once daily. MULTIVITAMIN TAB Take one(1) tablet by mouth daily. REVIEW OF SYSTEMS: D/N = 2/ Hematuria: none Dysuria: none Incontinence: none Urgency: none Medications to aid urination: No Bowel movement frequency: 1/day Bowel movement quality: normal Blood per rectum: none Sexual activity: Not sexually active PHYSICAL EXAM: BP 140/61 Pulse (!) 41 Resp 18 Wt 68.2 kg (150 lb 6.4 oz) SpO2 98% BMI 23.04 kg/m KPS: 100 General Appearance: Alert and oriented. No acute distress. ASSESSMENT/PLAN: 79 yo gentleman with hx of adenocarcinoma of the prostate, initial PSA of 7.27 ng/mL, [place]nette of 3+4=7. Status post I-125 seed implantation on 06/15/2021. 1. Encounter for follow-up surveillance of prostate cancer (Z08) Prostate cancer (HCC) (C61) Patient completed brachytherapy on 06/15/2021. Recent PSA levels are stable and low at 0.18 ng/mL. No current hormone therapy. Patient has a history of TURP in 2013 due to urinary retention. Nocturia once per night, daytime urinary frequency twice per day, no current hematuria, dysuria, incontinence, or urgency. Previous hematuria episodes likely secondary to Xarelto use; recent cystoscopy showed no malignancy. - Continue PSA monitoring every 6 months for the first 5 years post-radiation, then annually for the next 5 years. - Ordered next PSA test for late April or May before the patient moves to [place]. - Discussed virtual follow-up options post-move; patient can have PSA tests ordered locally and results sent to us. - Patient to monitor for any symptoms of lightheadedness or syncope due to bradycardia; advised to seek emergency care if these occur. 2. Erectile dysfunction, unspecified erectile dysfunction type (N52.9) Patient reports erectile dysfunction post-brachytherapy. No current use of PDE5 inhibitors like Cialis or Viagra. - Placed referral to urology for further evaluation and management. - Referred to a sex therapist specializing in cancer survivors. - Patient advised to consult with cardiology before initiating any PDE5 inhibitors due to cardiac history. Signed by: Keon Kelley APRN.CNP cc: Johnnie Ross [address] [place] [address] No referring provider defined for this encounter. documented in this encounter [facility] 11-10-2024 Note HNO ID: [id number] Author: KEON KELLEY APRN.CNP Service: ? Author Type: Nurse Practitioner Type: Progress Notes Filed: 11/16/2024 12:11 Note Text: Radiation Oncology - Follow Up Note PATIENT NAME: Ryley Mckeon PATIENT DIAGNOSIS: 79 yo gentleman with hx of adenocarcinoma of the prostate, initial PSA of 7.27 ng/mL, [place] of 3+4=7. Status post I-125 seed implantation on 06/15/2021. INTERVAL HISTORY: The patient presents for routine follow-up 6 months after having last been seen. Patient with a history of atrial fibrillation (AF) and urinary retention was diagnosed with prostate cancer. In 2013, he underwent a TURP at [facility] due to urinary retention, with post-void residuals of 600 cc. In 2017, his PSA levels were noted to be elevated at 7.27 ng/mL, and a nodule was palpated on examination. He was initially advised against brachytherapy due to his history of TURP. However, after consulting with Dr. Tejeda, he was deemed a candidate for brachytherapy. He underwent a biopsy and imaging, followed by brachytherapy on June 15, 2021, performed by Dr. Zayas and Dr. Bell at [facility]. Recent History: Patient reports stable urinary symptoms, with nocturia once per night and daytime frequency of twice per day. He denies dysuria, incontinence, urgency, or current hematuria. He had an episode of hematuria 4-5 months ago, attributed to Xarelto, which resolved spontaneously. A cystoscopy performed by Dr. Lin showed no abnormalities. He is not taking Flomax and reports regular bowel movements without hematochezia. He denies current use of medications for erectile dysfunction, noting that previous use of Cialis did not make him feel well. He expresses interest in addressing erectile dysfunction. Patient has a history of AF and has undergone three cardioversions, with the most recent resulting in bradycardia (HR 41 bpm). He is currently on metoprolol and Xarelto. He is scheduled for a Watchman device implantation and pulse field ablation on November 17, 2022, by Dr. Guzman at the [facility]. PSA HISTORY: PSA (ng/mL) Date Value 08/22/2024 0.18 04/29/2024 0.18 08/10/2023 0.37 05/13/2023 0.41 04/25/2021 6.63 PSA, Percent Free (%) Date Value 04/25/2021 12 ALLERGIES Allergen Reactions Hydrocodone Vomiting Oxycodone Vomiting Percocet [Oxycodone* GI Upset MEDICATION, NON-DATABASE Take 1 capsule by mouth once daily. Zinc complex with quercetin and vitamin C amoxicillin (AMOXIL) 500 mg capsule Take by mouth four times daily. Prior to dental appointment losartan (COZAAR) 50 mg tablet Take 1 tablet by mouth once daily. (Dr. Nelson) atorvastatin (LIPITOR) 40 mg tablet Take 1 tablet by mouth once daily. (Dr. Nelson) (Patient taking differently: Take 40 mg by mouth daily at bedtime. (Dr. Nelson)) iv contrast (will be provided with radiology test) CT Urogram WO/W Inject, intravenously, once for 1 dose.No IV access, insert saline lock prior to the beginning of sedation, infusion, injection of imaging exam. Discontinue saline lock post exam. If Pt. has a central line or IVAD, may access for administration according to line specific nursing protocol. Once exam is complete flush line and de-access according to line specific nursing protocol in the CT contrast administration guidelines link. metoprolol tartrate, short acting, (LOPRESSOR) 25 mg tablet Take 25 mg by mouth two times a day. Morning and night buPROPion XL (WELLBUTRIN XL) 300 mg 24 hr tablet Take 1 tablet by mouth once daily. XARELTO 20 mg tablet Take 20 mg by mouth daily at bedtime. coenzyme Q10 (COENZYME Q-10) 100 mg cap capsule Take 100 mg by mouth once daily. triamcinolone acetonide (NASACORT NASAL) Use in the nose once daily. BIOTIN ORAL Take 5,000 mcg by mouth once daily. MULTIVITAMIN TAB Take one(1) tablet by mouth daily. REVIEW OF SYSTEMS: D/N = 2/1 Hematuria: none Dysuria: none Incontinence: none Urgency: none Medications to aid urination: No Bowel movement frequency: 1/day Bowel movement quality: normal Blood per rectum: none Sexual activity: Not sexually active PHYSICAL EXAM: BP 140/61 Pulse (!) 41 Resp 18 Wt 68.2 kg (150 lb 6.4 oz) SpO2 98% BMI 23.04 kg/m? KPS: 100 General Appearance: Alert and oriented. No acute distress. ASSESSMENT/PLAN: 79 yo gentleman with hx of adenocarcinoma of the prostate, initial PSA of 7.27 ng/mL, [place] of 3+4=7. Status post I-125 seed implantation on 06/15/2021. 1. Encounter for follow-up surveillance of prostate cancer (Z08) Prostate cancer (HCC) (C61) Patient completed brachytherapy on 06/15/2021. Recent PSA levels are stable and low at 0.18 ng/mL. No current hormone therapy. Patient has a history of TURP in 2014 due to urinary retention. Nocturia once per night, daytime urinary frequency twice per day, no current hematuria, dysuria, incontinence, or urgenc (more content not included)... [facility] 11-10-2024 Note Patient Outreach (UR OLMN) RYLEY MCKEON ([id number]) 1945 M Date Time Provider Department 11/10/24 ARACELI LAURA During your visit today, we recorded the following information about you: Allergies As of Date: 11/10/2024 Noted Allergy Reaction HYDROCODONE 02/11/2018 11 - Vomiting OXYCODONE 02/11/2018 11 - Vomiting PERCOCET (OXYCODONE-ACETAMINOPHEN) 8 8 - GI Upset Date Reviewed: 11/10/2024 Reviewed by: Jerome Bwoer OCCA - Fully Assessed Visit Diagnosis:Screening for genitourinary condition [Z13.89] Order(s):UA DIP, URINE (POC) [9500610] Order #: [id number] FUTURE Prescriptions as of 11/13/2024 - MEDICATION, NON-DATABASE Take 1 capsule by mouth once daily. Zinc complex with quercetin and vitamin C - amoxicillin (AMOXIL) 500 mg capsule Take by mouth four times daily. Prior to dental appointment - losartan (COZAAR) 50 mg tablet Take 1 tablet by mouth once daily. (Dr. Nelson) - atorvastatin (LIPITOR) 40 mg tablet Take 1 tablet by mouth once daily. (Dr. Nelson) - iv contrast (will be provided with radiology test) CT Urogram WO/W Inject, intravenously, once for 1 dose.No IV access, insert saline lock prior to the beginning of sedation, infusion, injection of imaging exam. Discontinue saline lock post exam. If Pt. has a central line or IVAD, may access for administration according to line specific nursing protocol. Once exam is complete flush line and de-access according to line specific nursing protocol in the CT contrast administration guidelines link. - metoprolol tartrate, short acting, (LOPRESSOR) 25 mg tablet Take 25 mg by mouth two times a day. Morning and night - buPROPion XL (WELLBUTRIN XL) 300 mg 24 hr tablet Take 1 tablet by mouth once daily. - XARELTO 20 mg tablet Take 20 mg by mouth daily at bedtime. - coenzyme Q10 (COENZYME Q-10) 100 mg cap capsule Take 100 mg by mouth once daily. - triamcinolone acetonide (NASACORT NASAL) Use in the nose once daily. - BIOTIN ORAL Take 5,000 mcg by mouth once daily. - MULTIVITAMIN TAB Take one(1) tablet by mouth daily. 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 [Z79.* At risk for stroke [Z91.89] Persistent atrial fibrillation (HCC) [I48.19] Bradycardia [R00.1] Sinus bradycardia [R00.1] 06/13/2021 Premature ventricular contractions (PVCs) (VPCs* Atrial flutter (HCC) [I48.92] Sinus node dysfunction (HCC) [I49.5] Malignant neoplasm of prostate (HCC) [C61] 03/16/2021 Anxiety and depression [F41.9, F32.A] 06/13/2021 LISSETTE (obstructive sleep apnea) [G47.33] 06/13/2021 CAD (coronary artery disease) [I25.10] 06/13/2021 Essential (primary) hypertension [I10] 06/13/2021 Dyslipidemia [E78.5] 06/13/2021 Tricuspid insufficiency [I07.1] 06/13/2021 Systolic dysfunction [I51.9] 06/13/2021 Mitral valve prolapse [I34.1] 08/07/2010 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 Sarah Beth Ellis RN [facility] 10-15-2024 Miscellaneous Notes Pt's name has been added to [place] procedure board. Sarah Beth Ellis RN Patient is scheduled for a WM/PFA on 11/[address] Guzman. The hospital will call the day before between 2-5pm with your arrival time. You should not eat or drink after midnight the day before the procedure. You will need a sanitation truck driver when released from the hospital and you will stay overnight for observation. You should continue to take medications as prescribed the morning of the procedure with just a sip of water unless otherwise instructed. PAT to call and scheduled H&P/EKG Spoke with Ryley Mckeon on October 15, 2024. Informed of instructions as stated above. Patient verbalized understanding. Jazmin Olmstead documented in this encounter [facility] 10-15-2024 Telephone encounter Note Patient is scheduled for a WM/PFA on 11/[address] Guzman. The hospital will call the day before between 2-5pm with your arrival time. You should not eat or drink after midnight the day before the procedure. You will need a sanitation truck driver when released from the hospital and you will stay overnight for observation. You should continue to take medications as prescribed the morning of the procedure with just a sip of water unless otherwise instructed. PAT to call and scheduled H&P/EKG Spoke with Ryley Mckeon on October 15, 2024. Informed of instructions as stated above. Patient verbalized understanding. Jazmin Olmstead [facility] 08-25-2024 Note HNO ID: [id number] Author: JOHNNIE ROSS MD Service: ? Author Type: Physician Type: Progress Notes Filed: 09/14/2024 00:14 Note Text: This note was created using [employer]. Subjective Ryley Mckeon is a 79 year old male. Patient presents with: Follow Up Ryley is a 79-year-old male with a history of atrial fibrillation, presenting for a 6-month follow-up. Ryley is awaiting a Watchman device implantation and reports that a CTA was completed over a month ago. He has been informed that the EP lab controls the scheduling and that he is tentatively scheduled for the procedure sometime in November. He expresses frustration with the lack of a specific date and requests assistance in confirming the schedule. Ryley recently contracted COVID-19 while visiting family in [place], with a positive test on July 30. He was prescribed molnupiravir due to his underlying heart condition and has completed the course of therapy. He reports residual phlegm and a mild tickly cough but denies any other symptoms of long COVID, such as severe dyspnea or cardiomyopathy. He inquires about the duration of immunity post-COVID infection and the necessity of future COVID vaccinations. Ryley is currently on a medication regimen that includes Wellbutrin, losartan 50 mg daily, metoprolol 25 mg BID, Xarelto 20 mg daily, zinc, Nasacort, a multivitamin, and Lipitor 40 mg daily. He also takes amoxicillin prophylactically for dental procedures. He denies experiencing any palpitations or tachycardia and reports no swelling. PAST MEDICAL HISTORY Diagnosis Date At risk for bleeding associated with anticoagulants 05/16/2024 At risk for stroke Atrial flutter (HCC) probably atypical form; symptomatic Bradycardia sinus bradycardia Coronary artery disease involving [place] coronary artery of [place] heart without angina pectoris Dr Nelson--[facility] Dyslipidemia Gross hematuria 05/16/2024 Hemorrhage of gastrointestinal tract, unspecified HTN (hypertension) Internal hemorrhoids without mention of complication detention (current) use of anticoagulants apixaban (Eliquis); indication: stroke prevention AF Macular hole of right eye 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 Langston ([facility]) in 2008, considered to be benign PVCs; improved with beta-michell but developed fatigue, then treated with verapamil Prostate cancer (HCC) followed by Dr. Thomas Retinal detachment, left 01/2016 Sinus bradycardia Sinus node dysfunction (HCC) probably in part due to recurrent atrial arrhythmias Unspecified constipation Current Outpatient Medications Medication Sig amoxicillin (AMOXIL) 500 mg capsule Take 500 mg by mouth three times a day. iv contrast (will be provided with radiology test) CT Urogram WO/W Inject, intravenously, once for 1 dose.No IV access, insert saline lock prior to the beginning of sedation, infusion, injection of imaging exam. Discontinue saline lock post exam. If Pt. has a central line or IVAD, may access for administration according to line specific nursing protocol. Once exam is complete flush line and de-access according to line specific nursing protocol in the CT contrast administration guidelines link. LORazepam (ATIVAN) 0.5 mg Take 0.25 mg by mouth once daily as needed. metoprolol tartrate, short acting, (LOPRESSOR) 25 mg tablet Take 25 mg by mouth two times a day. Morning and night buPROPion XL (WELLBUTRIN XL) 300 mg 24 hr tablet Take 1 tablet by mouth once daily. XARELTO 20 mg tablet Take 20 mg by mouth once daily. coenzyme Q10 (COENZYME Q-10) 100 mg cap capsule Take 100 mg by mouth twice daily. ZINC ACETATE ORAL Take by mouth. triamcinolone acetonide (NASACORT NASAL) Use in the nose once daily. BIOTIN ORAL Take 5,000 mcg by mouth once daily. MULTIVITAMIN TAB Take one(1) tablet by mouth daily. losartan (COZAAR) 50 mg tablet Take 1 tablet by mouth once daily. (Dr. Nelson) atorvastatin (LIPITOR) 40 mg tablet Take 1 tablet by mouth once daily. (Dr. Nelson) No current facility-administered medications for this visit. Review of Systems Objective BP 130/71 Pulse (!) 56 Ht 172.1 cm (5' 7.75) Wt 68.7 kg (151 lb 7.3 oz) BMI 23.20 kg/m? Physical Exam Vitals reviewed. Constitutional: Appearance: Normal appearance. Eyes: Conjunctiva/sclera: Conjunctivae normal. Cardiovascular: Rate and Rhythm: Normal rate and regular rhythm. Heart sounds: Normal heart sounds. Pulmonary: Effort: Pulmonary effort is normal. Breath sounds: Normal breath sounds. (more content not included)... [facility] 08-25-2024 History of Present illness Narrative This note was created using [employer]. Subjective Ryley Mckeon is a 79 year old male. Patient presents with: Follow Up Ryley is a 79-year-old male with a history of atrial fibrillation, presenting for a 6-month follow-up. Ryley is awaiting a Watchman device implantation and reports that a CTA was completed over a month ago. He has been informed that the EP lab controls the scheduling and that he is tentatively scheduled for the procedure sometime in November. He expresses frustration with the lack of a specific date and requests assistance in confirming the schedule. Ryley recently contracted COVID-19 while visiting family in [place], with a positive test on July 30. He was prescribed molnupiravir due to his underlying heart condition and has completed the course of therapy. He reports residual phlegm and a mild tickly cough but denies any other symptoms of long COVID, such as severe dyspnea or cardiomyopathy. He inquires about the duration of immunity post-COVID infection and the necessity of future COVID vaccinations. Ryley is currently on a medication regimen that includes Wellbutrin, losartan 50 mg daily, metoprolol 25 mg BID, Xarelto 20 mg daily, zinc, Nasacort, a multivitamin, and Lipitor 40 mg daily. He also takes amoxicillin prophylactically for dental procedures. He denies experiencing any palpitations or tachycardia and reports no swelling. PAST MEDICAL HISTORY Diagnosis Date At risk for bleeding associated with anticoagulants 05/16/2024 At risk for stroke Atrial flutter (HCC) probably atypical form; symptomatic Bradycardia sinus bradycardia Coronary artery disease involving [place] coronary artery of [place] heart without angina pectoris Dr Nelson--[facility] Dyslipidemia Gross hematuria 05/16/2024 Hemorrhage of gastrointestinal tract, unspecified HTN (hypertension) Internal hemorrhoids without mention of complication detention (current) use of anticoagulants apixaban (Eliquis); indication: stroke prevention AF Macular hole of right eye 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 Langston ([facility]) in 2008, considered to be benign PVCs; improved with beta-michell but developed fatigue, then treated with verapamil Prostate cancer (HCC) followed by Dr. Thomas Retinal detachment, left 01/2016 Sinus bradycardia Sinus node dysfunction (HCC) probably in part due to recurrent atrial arrhythmias Unspecified constipation Current Outpatient Medications Medication Sig amoxicillin (AMOXIL) 500 mg capsule Take 500 mg by mouth three times a day. iv contrast (will be provided with radiology test) CT Urogram WO/W Inject, intravenously, once for 1 dose.No IV access, insert saline lock prior to the beginning of sedation, infusion, injection of imaging exam. Discontinue saline lock post exam. If Pt. has a central line or IVAD, may access for administration according to line specific nursing protocol. Once exam is complete flush line and de-access according to line specific nursing protocol in the CT contrast administration guidelines link. LORazepam (ATIVAN) 0.5 mg Take 0.25 mg by mouth once daily as needed. metoprolol tartrate, short acting, (LOPRESSOR) 25 mg tablet Take 25 mg by mouth two times a day. Morning and night buPROPion XL (WELLBUTRIN XL) 300 mg 24 hr tablet Take 1 tablet by mouth once daily. XARELTO 20 mg tablet Take 20 mg by mouth once daily. coenzyme Q10 (COENZYME Q-10) 100 mg cap capsule Take 100 mg by mouth twice daily. ZINC ACETATE ORAL Take by mouth. triamcinolone acetonide (NASACORT NASAL) Use in the nose once daily. BIOTIN ORAL Take 5,000 mcg by mouth once daily. MULTIVITAMIN TAB Take one(1) tablet by mouth daily. losartan (COZAAR) 50 mg tablet Take 1 tablet by mouth once daily. (Dr. Nelson) atorvastatin (LIPITOR) 40 mg tablet Take 1 tablet by mouth once daily. (Dr. Nelson) No current facility-administered medications for this visit. Review of Systems Objective BP 130/71 Pulse (!) 56 Ht 172.1 cm (5' 7.75) Wt 68.7 kg (151 lb 7.3 oz) BMI 23.20 kg/m Physical Exam Vitals reviewed. Constitutional: Appearance: Normal appearance. Eyes: Conjunctiva/sclera: Conjunctivae normal. Cardiovascular: Rate and Rhythm: Normal rate and regular rhythm. Heart sounds: Normal heart sounds. Pulmonary: Effort: Pulmonary effort is normal. Breath sounds: Normal breath sounds. Musculoskeletal: Right lower leg: No edema. Left lower leg: No edema. Skin: General: Skin is warm and dry. Neurological: General: No focal deficit present. Mental Status: He is alert and oriented to person, place, and time. Psychiatric: Attention and Perception: Attention and perception normal. Mood and Affect: Mood and affect normal. Speech: Speech normal. Behavior: Behavior normal. Thought Content: Thought content normal. Cognition and Memory: Cognition and memory normal. Judgment: Judgment normal. Latest Ref Rng 08/10/2023 02/14/2024 08/22/2024 WBC 3.70 - 11.00 k/uL 6.60 6.41 7.00 RBC 4.20 - 6.00 m/uL 4.92 4.79 4.37 Hemoglobin 13.0 - 17.0 g/dL 15.0 14.7 13.4 Hematocrit 39.0 - 51.0 % 45.0 43.5 40.6 MCV 80.0 - 100.0 fL 91.5 90.8 92.9 MCH 26.0 - 34.0 pg 30.5 30.7 30.7 MCHC 30.5 - 36.0 g/dL 33.3 33.8 33.0 RDW-CV 11.5 - 15.0 % 12.9 13.1 13.4 Platelet Count 150 - 400 k/uL 292 293 280 MPV 9.0 - 12.7 fL 9.1 8.4 (L) 9.1 Neut% % 52.4 Abs Neut (ANC) 1.45 - 7.50 k/uL 3.66 Lymph% % 35.4 Abs Lymph 1.00 - 4.00 k/uL 2.48 Storey% % 8.4 Abs Storey <0.87 k/uL 0.59 Eosin% % 3.0 Abs Eosin <0.46 k/uL 0.21 Baso% % 0.7 Abs Baso <0.11 k/uL 0.05 Immature Gran % % 0.1 IMMATURE GRANS (ABS) <0.10 k/uL <0.03 NRBC /100 WBC 0.0 Absolute nRBC <0.01 k/uL <0.01 <0.01 <0.01 DTYPE Auto Protein, Total 6.3 - 8.0 g/dL 6.2 (L) 6.1 (L) 6.1 (L) Albumin 3.9 - 4.9 g/dL 4.2 4.4 4.0 Calcium 8.5 - 10.2 mg/dL 9.1 9.1 9.0 Bilirubin, Total 0.2 - 1.3 mg/dL 0.6 0.3 0.6 Alkaline Phosphatase 38 - 113 U/L 95 95 96 AST 14 - 40 U/L 25 29 24 ALT 10 - 54 U/L 26 32 28 Glucose 74 - 99 mg/dL 105 (H) 110 (H) 106 (H) BUN 9 - 24 mg/dL 12 15 12 Creatinine 0.73 - 1.22 mg/dL 0.83 0.90 0.81 Sodium 136 - 144 mmol/L 143 142 141 Potassium 3.7 - 5.1 mmol/L 4.4 4.2 4.1 Chloride 98 - 107 mmol/L 105 103 105 CO2 22 - 30 mmol/L 23 26 28 Anion Gap 8 - 15 mmol/L 15 13 8 eGFR >=60 mL/min/1.73m 91 89 91 Cholesterol, Total <200 mg/dL 143 122 Triglyceride <150 mg/dL 59 46 HDL Cholesterol >39 mg/dL 49 43 Non HDL Cholesterol <130 mg/dL 94 79 Fasting Time hrs 12 12 VLDL Cholesterol <30 mg/dL 12 7 TC:HDL Ratio <5.10 2.92 2.84 LDL Cholesterol, Calculated <100 mg/dL 82 68 LDL:HDL Ratio <2.54 1.67 1.58 Hemoglobin A1C 4.3 - 5.6 % 5.5 5.3 5.6 Estimated Average Glucose mg/dL 111 105 114 PSA <2.60 ng/mL 0.37 0.18 Testosterone 193 - 824 ng/dL 482 Legend: (L) Low (H) High Assessment and Plan # IFG (impaired fasting glucose) (R73.01) - Recent A1c is 5.6%. - Continue monitoring blood glucose levels. - Maintain a balanced diet and regular exercise. # Primary hypertension (I10) - Blood pressure well-controlled on losartan 50 mg once daily and metoprolol 25 mg BID, managed by Dr. Aldana. - Continue current antihypertensive regimen. # Persistent atrial fibrillation (HCC) (I48.19) - No current symptoms of tachycardia or irregular heartbeat. - Awaiting Watchman implant; tentatively scheduled for November 17. - Continue Xarelto 20 mg once daily. - Advised patient to monitor for any changes in symptoms and report immediately if any occur. # Dyslipidemia (E78.5) - LDL cholesterol decreased to 68 mg/dL. - Continue Lipitor 40 mg daily. - Encouraged a heart-healthy diet rich in protein. # Encounter for long-term current use of medication (Z79.899) - Medications reviewed and updated: - Wellbutrin, losartan 50 mg once daily, metoprolol 25 mg BID, Xarelto 20 mg once daily, zinc, Nasacort, multivitamin, Leqvio, Lipitor 40 mg daily, amoxicillin for dental procedures. - Completed course of Molnupiravir for recent COVID-19 infection. - Declined COVID-19 vaccine at this time due to recent infection in July. Johnnie Ross MD Recording using [employer] software for draft documentation of the visit was discussed with the patient/authorized technology sales representative; all questions welcomed and answered. Patient/authorized technology sales representative agreed to proceed documented in this encounter [facility] 08-25-2024 Progress note Formatting of t his note might be different from the original. 08/25 OV [facility] Work Phone: 08-25-2024 Miscellaneous Notes 08/25 OV documented in this encounter [facility] 07-13-2024 History of Present illness Narrative Radiology Service Progress Note DATE OF SERVICE: July 13, 2024 TIME: 1:29 PM PATIENT IDENTITY VERIFICATION COMPLETED USING TWO (2) STANDARD IDENTIFIERS: Name and Date of confirmed by patient verbally. FALL SCREENING: Has the patient had 2 falls in the last year or 1 fall with injury or currently using an Ambulatory Assistive Device (Walker, Cane, Wheelchair, Crutches, etc.)? No PATIENT GENDER DATA: Assigned male at PATIENT RELEVANT IMPLANT DATA REVIEWED: Not Applicable PATIENT PRESENTS WITH AN IMPLANTABLE OR ATTACHED DAIRY MANAGER: No ALLERGIES: Reviewed and unchanged CONTRAST ALLERGY: NO. EXAM: CT -CONTRAST INDUCED NEPHROPATHY RISK FACTORS: Not applicable CREATININE: Creatinine Date Value Ref Range Status 05/05/2024 0.78 0.73 - 1.22 mg/dL Final 02/14/2024 0.90 0.73 - 1.22 mg/dL Final 08/10/2023 0.83 0.73 - 1.22 mg/dL Final Estimated Glomerular Filtration Rate Date Value Ref Range Status 05/05/2024 92 >=60 mL/min/1.73m Final Comment: Estimated Glomerular Filtration Rate (eGFR) is calculated using the 2020 CKD-EPI creatinine equation. This equation utilizes serum creatinine, sex, and age as parameters. The creatinine assay has traceable calibration to isotope dilution-mass spectrometry. Refer to KDIGO guidelines for clinical interpretation. In patients with unstable renal function, e.g. those with acute kidney injury, the eGFR may not accurately reflect actual GFR. P.O.C.T. RESULTS: POC done: Yes, See Lab Tab July 13, 2024 TREATMENT: N/A and No Hydration needed. PERIPHERAL IV DATA: Ambulatory: Not applicable RADIOLOGY DEPARTMENT: CT; Exam(s) Completed: CTA Chest SIGNATURE: RT Alli(R) PATIENT NAME: Ryley Mckeon DATE: July 13, 2024 TIME: 1:29 PM documented in this encounter [facility] 07-13-2024 Note HNO ID: [id number] Author: FRANCISCA ANDRADE RT(R) Service: Radiology Author Type: Senior Project Leader/Team Lead Type: Progress Notes Filed: 07/13/2024 13:29 Note Text: Radiology Service Progress Note DATE OF SERVICE: July 13, 2024 TIME: 1:29 PM PATIENT IDENTITY VERIFICATION COMPLETED USING TWO (2) STANDARD IDENTIFIERS: Name and Date of confirmed by patient verbally. FALL SCREENING: Has the patient had 2 falls in the last year or 1 fall with injury or currently using an Ambulatory Assistive Device (Walker, Cane, Wheelchair, Crutches, etc.)? No PATIENT GENDER DATA: Assigned male at PATIENT RELEVANT IMPLANT DATA REVIEWED: Not Applicable PATIENT PRESENTS WITH AN IMPLANTABLE OR ATTACHED DAIRY MANAGER: No ALLERGIES: Reviewed and unchanged CONTRAST ALLERGY: NO. EXAM: CT -CONTRAST INDUCED NEPHROPATHY RISK FACTORS: Not applicable CREATININE: Creatinine Date Value Ref Range Status 05/05/2024 0.78 0.73 - 1.22 mg/dL Final 02/14/2024 0.90 0.73 - 1.22 mg/dL Final 08/10/2023 0.83 0.73 - 1.22 mg/dL Final Estimated Glomerular Filtration Rate Date Value Ref Range Status 05/05/2024 92 >=60 mL/min/1.73m? Final Comment: Estimated Glomerular Filtration Rate (eGFR) is calculated using the 2020 CKD-EPI creatinine equation. This equation utilizes serum creatinine, sex, and age as parameters. The creatinine assay has traceable calibration to isotope dilution-mass spectrometry. Refer to KDIGO guidelines for clinical interpretation. In patients with unstable renal function, e.g. those with acute kidney injury, the eGFR may not accurately reflect actual GFR. P.O.C.T. RESULTS: POC done: Yes, See Lab Tab July 13, 2024 TREATMENT: N/A and No Hydration needed. PERIPHERAL IV DATA: Ambulatory: Not applicable RADIOLOGY DEPARTMENT: CT; Exam(s) Completed: CTA Chest SIGNATURE: RT Alli(R) PATIENT NAME: Ryley Mckeon DATE: July 13, 2024 TIME: 1:29 PM [facility] 07-13-2024 Note HNO ID: [id number] Author: JOHNNIE ROSS MD Service: ? Author Type: Physician Type: Progress Notes Filed: 07/13/2024 13:05 Note Text: This note was created using [employer]. Subjective Ryley Mckeon is a 79 year old male. Ryley is a 79-year-old male with a history of non-valvular atrial fibrillation and recurrent hematuria, presenting for evaluation and management of atrial fibrillation and associated complications. Ryley reports a history of non-valvular atrial fibrillation and recurrent hematuria, which has been evaluated by urology. He is currently on Xarelto, which has been associated with easy bruising. He is scheduled for a CTA at 1330 today and is considering a Watchman device placement. He has discussed the risks and benefits of the procedure with his group work program aide and urologist and is seeking support for his decision. Ryley also reports a slow heart rate, which he attributes to his beta-michell medication. He has been informed by his group work program aide in [facility] (Dr. Nelson) that a pacemaker may be necessary if his heart rate continues to be slow after cardioversion. He denies any symptoms of shortness of breath or chest pain. Additionally, Ryley has a left inguinal hernia that is not causing any pain. He has been evaluated by a surgeon, who recommended surgery, but Ryley has not yet scheduled the procedure. He is prioritizing his cardiac issues first. Patient presents with: Pre-Op Exam: For procedures approval of pcp HISTORY Ryley is a 79-year-old male with a history of non-valvular atrial fibrillation and recurrent hematuria, presenting for evaluation and management of atrial fibrillation and associated complications. Ryley reports a history of non-valvular atrial fibrillation and recurrent hematuria, which has been evaluated by urology. He is currently on Xarelto, which has been associated with easy bruising. He is scheduled for a CTA at 1330 today and is considering a Watchman device placement. He has discussed the risks and benefits of the procedure with his group work program aide and urologist and is seeking support for his decision. Ryley also reports a slow heart rate, which he attributes to his beta-michell medication. He has been informed by his group work program aide in [facility] (Dr. Nelson) that a pacemaker may be necessary if his heart rate continues to be slow after cardioversion. He denies any symptoms of shortness of breath or chest pain. Additionally, Ryley has a left inguinal hernia that is not causing any pain. He has been evaluated by a surgeon, who recommended surgery, but Ryley has not yet scheduled the procedure. He is prioritizing his cardiac issues first. PAST MEDICAL HISTORY Diagnosis Date At risk for bleeding associated with anticoagulants 05/16/2024 At risk for stroke Atrial flutter (HCC) probably atypical form; symptomatic Bradycardia sinus bradycardia Coronary artery disease involving [place] coronary artery of [place] heart without angina pectoris Dr Nelson--[facility] Dyslipidemia Gross hematuria 05/16/2024 Hemorrhage of gastrointestinal tract, unspecified HTN (hypertension) Internal hemorrhoids without mention of complication detention (current) use of anticoagulants apixaban (Eliquis); indication: stroke prevention AF Macular hole of right eye 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 Langston ([facility]) in 2008, considered to be benign PVCs; improved with beta-michell but developed fatigue, then treated with verapamil Prostate cancer (HCC) followed by Dr. Thomas Retinal detachment, left 01/2016 Sinus bradycardia Sinus node dysfunction (HCC) probably in part due to recurrent atrial arrhythmias Unspecified constipation PAST SURGICAL HISTORY Procedure Laterality Date CARDIAC CATH 06/23/2008 reportedly minimal CAD CARDIAC CATH 06/23/2008 LVEF 55%; LAD 10% prox, D1 20-30% ostial, LCX normal, RCA 10-20% prox, right AV branch 10-20%, right PL branch 10-20% CARDIAC STRESS TEST 06/16/2008 no stress-induced myocardial ischemia CARDIOVERSION, ELECTIVE, ELECTRICAL 04/24/2017 CARDIOVERSION, ELECTIVE, ELECTRICAL 04/30/2017 CATARACT EXTRACTION HX Left 10/2016 CATARACT EXTRACTION HX Right 11/2016 COLONOSCOPY FLX DX W/COLLJ SPEC WHEN PFRMD 08/28/2005 Colonoscopy ECHOCARDIOGRAM 07/31/2016 LVEF 60% ECHOCARDIOGRAM 07/31/2016 LVEF 60%; trivial MR with stable annuloplasty ring; mild TR EYE SURGERY HX Right 12/2016 HOLTER MONITOR 48 HOUR 04/26/2017 sinus rhythm with AF/flutter, max HR 154 bpm; reported symptoms correlated (more content not included)... [facility] 07-13-2024 History of Present illness Narrative This note was created using [employer]. Subjective Ryley Mckeon is a 79 year old male. Ryley is a 79-year-old male with a history of non-valvular atrial fibrillation and recurrent hematuria, presenting for evaluation and management of atrial fibrillation and associated complications. Ryley reports a history of non-valvular atrial fibrillation and recurrent hematuria, which has been evaluated by urology. He is currently on Xarelto, which has been associated with easy bruising. He is scheduled for a CTA at 1330 today and is considering a Watchman device placement. He has discussed the risks and benefits of the procedure with his group work program aide and urologist and is seeking support for his decision. Ryley also reports a slow heart rate, which he attributes to his beta-michell medication. He has been informed by his group work program aide in [facility] (Dr. Nelson) that a pacemaker may be necessary if his heart rate continues to be slow after cardioversion. He denies any symptoms of shortness of breath or chest pain. Additionally, Ryley has a left inguinal hernia that is not causing any pain. He has been evaluated by a surgeon, who recommended surgery, but Ryley has not yet scheduled the procedure. He is prioritizing his cardiac issues first. Patient presents with: Pre-Op Exam: For procedures approval of pcp HISTORY Ryley is a 79-year-old male with a history of non-valvular atrial fibrillation and recurrent hematuria, presenting for evaluation and management of atrial fibrillation and associated complications. Ryley reports a history of non-valvular atrial fibrillation and recurrent hematuria, which has been evaluated by urology. He is currently on Xarelto, which has been associated with easy bruising. He is scheduled for a CTA at 1330 today and is considering a Watchman device placement. He has discussed the risks and benefits of the procedure with his group work program aide and urologist and is seeking support for his decision. Ryley also reports a slow heart rate, which he attributes to his beta-mcihell medication. He has been informed by his group work program aide in [facility] (Dr. Nelson) that a pacemaker may be necessary if his heart rate continues to be slow after cardioversion. He denies any symptoms of shortness of breath or chest pain. Additionally, Ryley has a left inguinal hernia that is not causing any pain. He has been evaluated by a surgeon, who recommended surgery, but Ryley has not yet scheduled the procedure. He is prioritizing his cardiac issues first. 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 Langston ([facility]) in 2008, considered to be benign PVCs; improved with beta-michell but developed fatigue, then treated with verapamil Prostate cancer (HCC) followed by Dr. Thomas Retinal detachment, left 01/2016 Sinus bradycardia Sinus node dysfunction (HCC) probably in part due to recurrent atrial arrhythmias Unspecified constipation PAST SURGICAL HISTORY Procedure Laterality Date CARDIAC CATH 06/23/2008 reportedly minimal CAD CARDIAC CATH 06/23/2008 LVEF 55%; LAD 10% prox, D1 20-30% ostial, LCX normal, RCA 10-20% prox, right AV branch 10-20%, right PL branch 10-20% CARDIAC STRESS TEST 06/16/2008 no stress-induced myocardial ischemia CARDIOVERSION, ELECTIVE, ELECTRICAL 04/24/2017 CARDIOVERSION, ELECTIVE, ELECTRICAL 04/30/2017 CATARACT EXTRACTION HX Left 10/2016 CATARACT EXTRACTION HX Right 11/2016 COLONOSCOPY FLX DX W/COLLJ SPEC WHEN PFRMD 08/28/2005 Colonoscopy ECHOCARDIOGRAM 07/31/2016 LVEF 60% ECHOCARDIOGRAM 07/31/2016 LVEF 60%; trivial MR with stable annuloplasty ring; mild TR EYE SURGERY HX Right 12/2016 HOLTER MONITOR 48 HOUR 04/26/2017 sinus rhythm with AF/flutter, max HR 154 bpm; reported symptoms correlated with AF and atrial flutter INGUINAL HERNIA REPAIR HX Right 1970 KNEE SURGERY HX Left 2006 arthroscopy MITRAL VALVE SURGERY HX 10/04/2000 MV repair; [facility], Dr. Winters MRI CARDIAC W/CONTRAST 08/31/2008 [facility]: LVEF 59%; normal RV, LV; no evidence for ARVC MYRINGOTOMY Right PROSTATE BIOPSY 12/2020 RPR RETINAL DTCHMNT INJECTION AIR/OTHER GAS Left 01/2016 also had right eye retina tacked down at same time SEED IMPLANT 06/2009 prostate STRESS TEST EXERCISE-NUCLEAR 06/16/2008 YURIDIA (TRANSESOPHAGEAL ECHO) 04/24/2017 Dr. Jony Urrutia: mild global LV systolic dysfxn; LVEF 45%; mild LaE; no clots TRURL ELECTROSURG RESCJ PROSTATE BLEED COMPLETE 10/2013 ALLERGIES Allergen Reactions Hydrocodone Vomiting Oxycodone Vomiting Percocet [Oxycodone* GI Upset Current Outpatient Medications Medication Sig iv contrast (will be provided with radiology test) CT Urogram WO/W Inject, intravenously, once for 1 dose.No IV access, insert saline lock prior to the beginning of sedation, infusion, injection of imaging exam. Discontinue saline lock post exam. If Pt. has a central line or IVAD, may access for administration according to line specific nursing protocol. Once exam is complete flush line and de-access according to line specific nursing protocol in the CT contrast administration guidelines link. LORazepam (ATIVAN) 0.5 mg Take 0.25 mg by mouth once daily as needed. metoprolol tartrate, short acting, (LOPRESSOR) 25 mg tablet Take 25 mg by mouth two times a day. Morning and night buPROPion XL (WELLBUTRIN XL) 300 mg 24 hr tablet Take 1 tablet by mouth once daily. XARELTO 20 mg tablet Take 20 mg by mouth once daily. coenzyme Q10 (COENZYME Q-10) 100 mg cap capsule Take 100 mg by mouth twice daily. ZINC ACETATE ORAL Take by mouth. triamcinolone acetonide (NASACORT NASAL) Use in the nose once daily. atorvastatin (LIPITOR) 40 mg tablet Take 40 mg by mouth once daily. losartan (COZAAR) 25 mg tablet Take 50 mg by mouth once daily. BIOTIN ORAL Take 5,000 mcg by mouth once daily. MULTIVITAMIN TAB Take one(1) tablet by mouth daily. No current facility-administered medications for this visit. FAMILY HISTORY Problem Relation Age of Onset other (afib) Sister ablation Coronary Artery Disease Brother had slight heart attack, ? intracoronary stent other (afib) Brother ablation other (sleep apnea) Brother Heart disease Father CABG Coronary Artery Disease Father other (heart attack) Paternal Grandfather Diabetes Mother Alzheimer's Disease Mother late 70s Social History Tobacco Use Smoking status: Former Current packs/day: 0.00 Types: Cigarettes, Pipe Start date: 1968 Quit date: 1974 Years since quittin.2 Smokeless tobacco: Never Tobacco comments: very light, social smoking; also smoked a pipe Vaping Use Vaping status: Never Used Substance Use Topics Alcohol use: Yes Alcohol/week: 7.0 standard drinks of alcohol Types: 7 Glasses of Wine (5oz) per week Comment: glass of red wine with dinner daily Drug use: No PAST MEDICAL HISTORY Diagnosis Date At risk for bleeding associated with anticoagulants 05/16/2024 At risk for stroke Atrial flutter (HCC) probably atypical form; symptomatic Bradycardia sinus bradycardia Coronary artery disease involving [place] coronary artery of [place] heart without angina pectoris Dr Nelson--[facility] Dyslipidemia Gross hematuria 05/16/2024 Hemorrhage of gastrointestinal tract, unspecified HTN (hypertension) Internal hemorrhoids without mention of complication 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 Langston ([facility]) in 2008, considered to be benign PVCs; improved with beta-michell but developed fatigue, then treated with verapamil Prostate cancer (HCC) followed by Dr. Thomas Retinal detachment, left 01/2016 Sinus bradycardia Sinus node dysfunction (HCC) probably in part due to recurrent atrial arrhythmias Unspecified constipation Current Outpatient Medications Medication Sig iv contrast (will be provided with radiology test) CT Urogram WO/W Inject, intravenously, once for 1 dose.No IV access, insert saline lock prior to the beginning of sedation, infusion, injection of imaging exam. Discontinue saline lock post exam. If Pt. has a central line or IVAD, may access for administration according to line specific nursing protocol. Once exam is complete flush line and de-access according to line specific nursing protocol in the CT contrast administration guidelines link. LORazepam (ATIVAN) 0.5 mg Take 0.25 mg by mouth once daily as needed. metoprolol tartrate, short acting, (LOPRESSOR) 25 mg tablet Take 25 mg by mouth two times a day. Morning and night buPROPion XL (WELLBUTRIN XL) 300 mg 24 hr tablet Take 1 tablet by mouth once daily. XARELTO 20 mg tablet Take 20 mg by mouth once daily. coenzyme Q10 (COENZYME Q-10) 100 mg cap capsule Take 100 mg by mouth twice daily. ZINC ACETATE ORAL Take by mouth. triamcinolone acetonide (NASACORT NASAL) Use in the nose once daily. atorvastatin (LIPITOR) 40 mg tablet Take 40 mg by mouth once daily. losartan (COZAAR) 25 mg tablet Take 50 mg by mouth once daily. BIOTIN ORAL Take 5,000 mcg by mouth once daily. MULTIVITAMIN TAB Take one(1) tablet by mouth daily. No current facility-administered medications for this visit. Review of Systems Objective BP 120/80 Pulse (!) 44 Resp 12 Wt 67.4 kg (148 lb 9.4 oz) BMI 22.76 kg/m Physical Exam Vitals reviewed. Constitutional: Appearance: Normal appearance. HENT: Head: Normocephalic. Right Ear: Tympanic membrane, ear canal and external ear normal. Left Ear: Tympanic membrane, ear canal and external ear normal. Mouth/Throat: Mouth: Mucous membranes are moist. Pharynx: Oropharynx is clear. Eyes: Extraocular Movements: Extraocular movements intact. Conjunctiva/sclera: Conjunctivae normal. Cardiovascular: Rate and Rhythm: Bradycardia present. Rhythm irregular. Pulses: Normal pulses. Heart sounds: Normal heart sounds. Pulmonary: Effort: Pulmonary effort is normal. Breath sounds: Normal breath sounds. Abdominal: General: Abdomen is flat. There is no distension. Palpations: Abdomen is soft. There is no mass. Musculoskeletal: Cervical back: Normal range of motion. Right lower leg: No edema. Left lower leg: No edema. Skin: General: Skin is warm and dry. Neurological: General: No focal deficit present. Mental Status: He is alert and oriented to person, place, and time. Psychiatric: Attention and Perception: Attention and perception normal. Mood and Affect: Mood and affect normal. Speech: Speech normal. Behavior: Behavior normal. Thought Content: Thought content normal. Cognition and Memory: Cognition and memory normal. Judgment: Judgment normal. Assessment and Plan # Preop exam for internal medicine (Z01.818) - Completed preoperative evaluation for Watchman device implantation. Letter verifying shared decision making completed done. - No signs of infection; patient is able to perform normal activities without respiratory issues. No medical contraindications to planned procedure. May proceed with planned surgical procedure. - Cardiology will schedule the procedure after CTA done today. # Persistent atrial fibrillation (HCC) (I48.19) # At risk for bleeding associated with anticoagulants (Z91.89) # Recurrent hematuria (N02.9) - History of non-valvular atrial fibrillation with increased risk for stroke; CHADS2 score of 4. - Discussed risks and benefits of Watchman device implantation; patient has recurrent hematuria and easy bruising due to anticoagulation therapy with Xarelto. - Patient evaluated by urology; cystoscopy performed by Dr. Perry Lin confirmed risk for recurrent bleeding if continued on anticoagulants. - Patient agrees to proceed with Watchman device implantation; CTA scheduled for today at 1330. - Patient educated on the importance of staying hydrated and using lotion to maintain skin integrity. # Gross hematuria (R31.0) - Evaluated by urology; cystoscopy performed by Dr. Perry Lin confirmed risk for recurrent bleeding if continued on anticoagulants. # Primary hypertension (I10) - Blood pressure remains stable; continue current management. # IFG (impaired fasting glucose) (R73.01) - Ordered A1c to be performed in August. # Encounter for long-term current use of medication (Z79.899) - Continue current medications. # Bradycardia (R00.1) - Heart rate noted to be 40-44 bpm; patient on metoprolol. - Discussed potential need for pacemaker if bradycardia persists and cannot be managed with medication adjustments. - Advised patient to monitor for symptoms of hypotension and to hold metoprolol if blood pressure is too low. - Management per cardiology # Inguinal hernia of left side without obstruction or gangrene (K40.90) - No pain reported; previously evaluated by Dr. Madrid who recommended surgical repair. - Advised patient to prioritize cardiac issues first; can consider hernia repair after cardiac clearance. Johnnie Ross MD The patient consented to the use of [employer] software for draft documentation of the visit consistent with [facility] s Notice of Privacy Practices. documented in this encounter [facility] 06-16-2024 Telephone encounter Note 06/16/24 letter from [facility] scanned into EPIC for your review. Clarita Mondragon RN [facility] 06-16-2024 Miscellaneous Notes 06/16/24 letter from [facility] scanned into EPIC for your review. Clarita Mondragon RN documented in this encounter [facility] 06-16-2024 Telephone encounter Note Spoke with Ryley Mckeon and informed them of Dr. Guzman response to medications and recommendations. Patient voiced understanding . Spoke Christina WARNER from Dr. Nelson office and informed her of Dr. Winslow recommendations. She voiced understanding. Grisel Tang LPN June 16, 2024 1:36 PM [facility] 06-16-2024 Miscellaneous Notes Spoke with Ryley Mckeon and informed them of Dr. Guzman response to medications and recommendations. Patient voiced understanding . Spoke Christina WRANER from Dr. Nelson office and informed her of Dr. Winslow recommendations. She voiced understanding. Grisel Tang LPN June 16, 2024 1:36 PM [facility] General Electrophysiology (EP) Dr. Nelson is completely qualified to make that determination. Trey Guzman MD June 16, 2024 12:57 PM Yes, ( I had the same confusion ) patient requested Dr. Nelson get a clearance from you because he was told to he needs to stop his Xarelto . Grisel Tang LPN June 16, 2024 12:51 PM [facility] Electrophysiology (EP) I'm confused. 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 Trey Guzman MD June 16, 2024 12:39 PM Ryley Marcela Mckeon is having a Loop recorder placed by Dr. Nelson , spoke to Christina Ross RN, she will have a surgery clearance form faxed to the office per patient request. Grisel Tang LPN June 16, 2024 8:56 AM documented in this encounter [facility] 06-16-2024 Telephone encounter Note [facility] Electrophysiology (EP) Dr. Nelson is completely qualified to make that determination. Trey Guzman MD June 16, 2024 12:57 PM [facility] 06-16-2024 Telephone encounter Note Yes, ( I had the same confusion ) patient requested Dr. Nelson get a clearance from you because he was told to he needs to stop his Xarelto . Grisel Tang LPN June 16, 2024 12:51 PM [facility] 06-16-2024 Telephone encounter Note [facility] [place] [facility] Electrophysiology (EP) I'm confused. 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 Trey Guzman MD June 16, 2024 12:39 PM [facility] 06-16-2024 Telephone encounter Note Ryley Mckeon is having a Loop recorder placed by Dr. Nelson , spoke to Christina Ross RN, she will have a surgery clearance form faxed to the office per patient request. Grisel Tang LPN June 16, 2024 8:56 AM [facility] 06-11-2024 Telephone encounter Note Patient called in to see when he would be scheduled for his ablation. I did let him know that the front office secretary will call once she get the date to schedule. Thanks Shanna Hollins [facility] 06-11-2024 Miscellaneous Notes Patient called in to see when he would be scheduled for his ablation. I did let him know that the front office secretary will call once she get the date to schedule. Thanks Shanna Hollins documented in this encounter [facility] 06-06-2024 Miscellaneous Notes [facility] [place] [facility] Electrophysiology (EP) Reviewed. If Mr. Mckeon is cleared to safely take oral anticoagulation therapy for at least short term, we can proceed with atrial fibrillation catheter ablation with concomitant Watchman device implant. 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 Procedure request submitted. CTA ordered. Trey Guzman MD June 06, 2024 4:06 PM Ryley Mckeon has been seen by Urology would like to go forward with ablation and Watchman that was discussed on 05/15/24. Grisel Tang LPN June 04, 2024 11:04 AM Pt wishes you notified he had a flex cystoscopy today with Dr Lin. Report is under Notes/Trans. Clarita Mondragon RN documented in this encounter [facility] 06-06-2024 Telephone encounter Note [facility] Electrophysiology (EP) Reviewed. If Mr. Mckeon is cleared to safely take oral anticoagulation therapy for at least short term, we can proceed with atrial fibrillation catheter ablation with concomitant Watchman device implant. 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 Procedure request submitted. CTA ordered. Trey Guzman MD June 06, 2024 4:06 PM [facility] 06-04-2024 Telephone encounter Note Ryley Mckeon has been seen by Urology would like to go forward with ablation and Watchman that was discussed on 05/15/24. Grisel Tang LPN June 04, 2024 11:04 AM [facility] 05-28-2024 Telephone encounter Note Pt wishes you notified he had a flex cystoscopy today with Dr Lin. Report is under Notes/Trans. Clarita Mondragon, RN [facility] 05-28-2024 History of Present illness Narrative 05/28/24 79 year old, M 75, M, [place], CAP, pt of eAK 03/2020 prostate bx, [place] 3+3, was on PSA kaylyn to 7.27 on 09/2020: MRI 0.6 cm P4 lesion, L mid PZ, no EPE, no LA or bone mets, 46 cc 01/26: repeat biopsy Gl 3+4, T1c, 4/4 cores positive, GG2, 95% So upgrading of the bx, now Gr 2 rather than 1, also psa increased 02/26: Decipher score 0.60, intermediate risk PMH: Afib and flutter on Eliqiuis, HTN, HLD, BPH, anxiety/depression SH: TURP, mult cardiac surgeries and caths, mitral valve repair On Xarelto, jail for Afib BMI 23, overall in good health Voids well, has some rectal discomfort Good erections Reg turp, has defect on MRI but not very impressive Plan: Probably needs to consider intervention He is interested in focal Rx, I will review this with Ki Jasso Other options include RT options All options were reviewed including surgery, RT options, and Regarding surgery: reasonable candidate but 75 and on AC, so probably best with other Rx Regarding RT option: good candidate for seeds, EBRT, or SBRT and we discussed this as well Regarding : given progression of stage and increase of PSA, prob should move towards active Rx Focal therapy may also be an option and we will explore this first Top consider focal therapy may need a systematic biopsy to ensure no disease anywhere else Per [place], good candidate but would need random bx to prove not in other areas too I called pt and now really considering seeds, will see [place], idea of focal Rx he is not so interested in this now Status post I-125 seed implantation on 06/15/2021. 03/29: psa 0.96, doing well, we see 12 mo wth psa 02/28: psa 0.41, sp seeds, doing well, some ED, may try cialis, we see 12 mo with psa 08/29: psa 0.37 SP seeds 05/02, gross hematuria, needs eval; 06/02: seen by cards for afib, considering ablation, watchman, and if so would need AC for a while Gross heamtruia, for CTU and cysto SP seeds Creatinine (mg/dL) Date Value 05/05/2024 0.78 10/18/2000 0.9 ] The above represents a brief summary of the patient's history as of the last clinic visit or hospitalization. Interim history: Recent radiographic studies: CTU (05/27/24) IMPRESSION: Brachi therapy seeds in the prostate Mild diffuse bladder wall trabeculation No nephrolithiasis, ureterolithiasis, gross obstructive uropathy, or suspicious renal lesion. Left inguinal hernia containing small bowel loops, without evidence of obstruction The stomach is distended and debris-filled Recent labs: PSA (04/29/24): 0.18; 05/05/24 SCR: 0.78, eGFR 92 Clinical status: no chagne Voiding status and ROS: recent hematuria, has resolved Reason for today's visit: cysto The procedure, office cystoscopy, and risks including but not limited to bleeding and infection, were reviewed and all questions were answered. Potential benefits such as defining disease status was discussed. Alternatives reviewed. My role as the physician performing the proceedure was reviewed. In short, we discussed P/R/B/A/P, in detail, all questions answered. Patient wishes to proceed. Disease Specificity: Acuity: Chronic Anatomic Site: Bladder, Laterality: N/A Underlying Condition/Causal Agent: Primary Associated Conditions/Manifestations: N/A No change ROS or PE Voids: see above Cystoscopy - Normal Urethra - Normal Prostate: Moderate lateral lobes VN: open Urothelium: Normal, no evidence of tumor, CIS stone, foreign body, diverticuli, etc. Trabeculation: mild Inflammation: mild Ureteral Orifices: Normal, clear efflux bilaterally Trigone: Normal Preoperative diagnosis: Gross hematuria Postoperative diagnosis: Same Procedure: Flexible cystoscopy Surgeon: Dr. Lin Anesthesia: Anestacon Procedure: The patient was taken to the cystoscopy suite and placed in the dorsal lithotomy position. He was then prepped and draped in the usual manner. Lidocaine gel was placed per urethra for local anasthesia. The patient received appropriate periprocedure antibiotics. Cystoscopy was then performed using a flexible cystoscope. Sterile technique was maintained throughout. Please refer to above for specific findings during this part of the procedure. After carefully and atraumatically inspecting the urethra, prostate, VN, bladder, and UO's, the cystoscope was removed. The patient tolerated the procedure well and there were no complications. He was take for recovery in good condition. Findings: see above Complications: None EBL: None Disposition: Cysto fine Check cytol CTU fine RTC 6 mo psa Kenneth Lin MD Scribe Attestation: By signing my name below, Rebecca Pineda, attest that this documentation has been prepared under the direction and in the presence of Dr. Kenneth Lin MD. Electronically Signed:erasmo Michelle, May 28, 2024 9:18 AM Provider Attestation: Kenneth Pineda MD, personally performed the services described in this documentation. All medical record entries made by the scribe were at my direction and in my presence. I have reviewed the chart and discharge instructions (if applicable) and agree that the record reflects my personal performance and is accurate and complete. Kenneth Lin MD May 28, 2024 10:57 AM UNIVERSAL PROTOCOL / SAFETY CHECKLIST Procedure to be Performed: Cystoscopy Sign In: A Moment of CARE was completed. Personnel directly involved with the procedure wore the appropriate PPE (Personal Protective Equipment). No special equipment needed. Patient/Surrogate Stated/Verified: PATIENT VERIFIED(optional for EMERGENT procedures): Patient name, Date of , Relevant allergies, and The intended procedure Time Out Communication: Intended patient and procedure match the source documents. Consent documented and matches the intended procedure. Relevant labs, photos, and/or imaging studies have been reviewed. Correct side/site marked and visible. Medications required for procedure verified. Fire risk assessed and interventions discussed. No implant(s) inserted. Sign Out: SIGN OUT (optional for EMERGENT procedures): All specimen containers correctly labeled. All instruments, equipment, possible retained foreign bodies accounted for. Post-procedure follow-up management communicated and Plan of Care Visit completed when applicable. jA Simon RN Patient ID with (2) Identifiers, Verified by: Aj Simon RN Actual procedure/procedure scheduled: CystoscopyYes Performing provider/scheduled provider: Yes Patient was roomed in: Q9- 05 Roofer Vinyl Coating offered:Patient declines Patient arrived in the room at: 1037 Patient ready for procedure: 1048 The procedure started at ( Time Only): 1053 The procedure ended at: 1055 Was the procedure delayed: No ProNox Utilized: No The patient left the procedure room at: 1103 Aj Simon RN PRE PROCEDURE ASSESSMENT- Cysto Latex Allergy: No Allergies reviewed and updated. Yes Pre-Procedure Vital Signs: BP: 171/79 Pulse: 48 Heart valve replacement: No Joint replacement: No Back Office UA otained: no PROCEDURE PREP-Cysto Patient Prep: Betadine Placement of Sterile Drape: COMPLETED Anesthetic Given:10 cc 2% Lidocaine jelly Aj Simon RN POST PROCEDURE NURSE ASSESSMENT Present along with physician during procedure exam. Aj Simon RN Current pain intensity is 0 on a 0-10 pain scale. 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 documented in this encounter [facility] 05-28-2024 Note HNO ID: [id number] Author: KENNETH LIN MD Service: ? Author Type: Physician Type: Progress Notes Filed: 05/28/2024 11:24 Note Text: 05/28/24 79 year old, M 75, M, [place], CAP, pt of eAK 03/2020 prostate bx, [place] 3+3, was on PSA kaylyn to 7.27 on 09/2020: MRI 0.6 cm P4 lesion, L mid PZ, no EPE, no LA or bone mets, 46 cc 01/26: repeat biopsy Gl 3+4, T1c, 4/4 cores positive, GG2, 95% So upgrading of the bx, now Gr 2 rather than 1, also psa increased 02/26: Decipher score 0.60, intermediate risk PMH: Afib and flutter on Eliqiuis, HTN, HLD, BPH, anxiety/depression SH: TURP, mult cardiac surgeries and caths, mitral valve repair On Xarelto, jail for Afib BMI 23, overall in good health Voids well, has some rectal discomfort Good erections Reg turp, has defect on MRI but not very impressive Plan: Probably needs to consider intervention He is interested in focal Rx, I will review this with Ki Jasso Other options include RT options All options were reviewed including surgery, RT options, and Regarding surgery: reasonable candidate but 75 and on AC, so probably best with other Rx Regarding RT option: good candidate for seeds, EBRT, or SBRT and we discussed this as well Regarding : given progression of stage and increase of PSA, prob should move towards active Rx Focal therapy may also be an option and we will explore this first Top consider focal therapy may need a systematic biopsy to ensure no disease anywhere else Per [place], good candidate but would need random bx to prove not in other areas too I called pt and now really considering seeds, will see [facility], idea of focal Rx he is not so interested in this now Status post I-125 seed implantation on 06/15/2021. 03/29: psa 0.96, doing well, we see 12 mo wth psa 02/28: psa 0.41, sp seeds, doing well, some ED, may try cialis, we see 12 mo with psa 08/29: psa 0.37 SP seeds 05/02, gross hematuria, needs eval; 06/02: seen by cards for afib, considering ablation, watchman, and if so would need AC for a while Gross heamtruia, for CTU and cysto SP seeds Creatinine (mg/dL) Date Value 05/05/2024 0.78 10/18/2000 0.9 ] The above represents a brief summary of the patient's history as of the last clinic visit or hospitalization. Interim history: Recent radiographic studies: CTU (05/27/24) IMPRESSION: Brachi therapy seeds in the prostate Mild diffuse bladder wall trabeculation No nephrolithiasis, ureterolithiasis, gross obstructive uropathy, or suspicious renal lesion. Left inguinal hernia containing small bowel loops, without evidence of obstruction The stomach is distended and debris-filled Recent labs: PSA (04/29/24): 0.18; 05/05/24 SCR: 0.78, eGFR 92 Clinical status: no chagne Voiding status and ROS: recent hematuria, has resolved Reason for today's visit: cysto The procedure, office cystoscopy, and risks including but not limited to bleeding and infection, were reviewed and all questions were answered. Potential benefits such as defining disease status was discussed. Alternatives reviewed. My role as the physician performing the proceedure was reviewed. In short, we discussed P/R/B/A/P, in detail, all questions answered. Patient wishes to proceed. Disease Specificity: Acuity: Chronic Anatomic Site: Bladder, Laterality: N/A Underlying Condition/Causal Agent: Primary Associated Conditions/Manifestations: N/A No change ROS or PE Voids: see above Cystoscopy - Normal Urethra - Normal Prostate: Moderate lateral lobes VN: open Urothelium: Normal, no evidence of tumor, CIS stone, foreign body, diverticuli, etc. Trabeculation: mild Inflammation: mild Ureteral Orifices: Normal, clear efflux bilaterally Trigone: Normal Preoperative diagnosis: Gross hematuria Postoperative diagnosis: Same Procedure: Flexible cystoscopy Surgeon: Dr. Lin Anesthesia: Anestacon Procedure: The patient was taken to the cystoscopy suite and placed in the dorsal lithotomy position. He was then prepped and draped in the usual manner. Lidocaine gel was placed per urethra for local anasthesia. The patient received appropriate periprocedure antibiotics. Cystoscopy was then performed using a flexible cystoscope. Sterile technique was maintained throughout. Please refer to above for specific findings during this part of the procedure. After carefully and atraumatically inspecting the urethra, prostate, VN, bladder, and UO's, the cystoscope was removed. The patient tolerated the procedure well and there were no complications. He was take for recovery in good condition. Findings: see above Complications: None EBL: None Disposition: Cysto fine Check cytol CTU fine RTC 6 mo psa Kenneth Lin MD Scribe Attestation: By signing my name below, I, Rebecca Capps, attest that this documentation has been prepared under the direction and in the presence of Dr Tonymore content not included)... [facility] 05-28-2024 Note HNO ID: [id number] Author: AJ SIMON RN Service: ? Author Type: Registered Nurse Type: Progress Notes Filed: 05/28/2024 11:05 Note Text: UNIVERSAL PROTOCOL / SAFETY CHECKLIST Procedure to be Performed: Cystoscopy Sign In: A Moment of CARE was completed. Personnel directly involved with the procedure wore the appropriate PPE (Personal Protective Equipment). No special equipment needed. Patient/Surrogate Stated/Verified: PATIENT VERIFIED(optional for EMERGENT procedures): Patient name, Date of , Relevant allergies, and The intended procedure Time Out Communication: Intended patient and procedure match the source documents. Consent documented and matches the intended procedure. Relevant labs, photos, and/or imaging studies have been reviewed. Correct side/site marked and visible. Medications required for procedure verified. Fire risk assessed and interventions discussed. No implant(s) inserted. Sign Out: SIGN OUT (optional for EMERGENT procedures): All specimen containers correctly labeled. All instruments, equipment, possible retained foreign bodies accounted for. Post-procedure follow-up management communicated and Plan of Care Visit completed when applicable. Aj Simon RN Patient ID with (2) Identifiers, Verified by: Aj Simon RN Actual procedure/procedure scheduled: CystoscopyYes Performing provider/scheduled provider: Yes Patient was roomed in: Q9- 05 Roofer Vinyl Coating offered:Patient declines Patient arrived in the room at: 1037 Patient ready for procedure: 1048 The procedure started at ( Time Only): 1053 The procedure ended at: 1055 Was the procedure delayed: No ProNox Utilized: No The patient left the procedure room at: 1103 Aj Simon RN PRE PROCEDURE ASSESSMENT- Cysto Latex Allergy: No Allergies reviewed and updated. Yes Pre-Procedure Vital Signs: BP: 171/79 Pulse: 48 Heart valve replacement: No Joint replacement: No Back Office UA otained: no PROCEDURE PREP-Cysto Patient Prep: Betadine Placement of Sterile Drape: COMPLETED Anesthetic Given:10 cc 2% Lidocaine jelly Aj Simon RN POST PROCEDURE NURSE ASSESSMENT Present along with physician during procedure exam. Aj Simon RN Current pain intensity is 0 on a 0-10 pain scale. 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 [facility] 05-25-2024 History of Present illness Narrative Radiology Service Progress Note DATE OF SERVICE: May 25, 2024 TIME: 3:31 PM PATIENT IDENTITY VERIFICATION COMPLETED USING TWO (2) STANDARD IDENTIFIERS: Name and Date of confirmed by patient verbally. FALL SCREENING: Has the patient had 2 falls in the last year or 1 fall with injury or currently using an Ambulatory Assistive Device (Walker, Cane, Wheelchair, Crutches, etc.)? No PATIENT GENDER DATA: Assigned male at PATIENT RELEVANT IMPLANT DATA REVIEWED: Yes PATIENT PRESENTS WITH AN IMPLANTABLE OR ATTACHED DAIRY MANAGER: No ALLERGIES: Reviewed and unchanged CONTRAST ALLERGY: NO. EXAM: CT -CONTRAST INDUCED NEPHROPATHY RISK FACTORS: Patient age > 60 years CREATININE: Creatinine Date Value Ref Range Status 05/05/2024 0.78 0.73 - 1.22 mg/dL Final 02/14/2024 0.90 0.73 - 1.22 mg/dL Final 08/10/2023 0.83 0.73 - 1.22 mg/dL Final Estimated Glomerular Filtration Rate Date Value Ref Range Status 05/05/2024 92 >=60 mL/min/1.73m Final Comment: Estimated Glomerular Filtration Rate (eGFR) is calculated using the 2020 CKD-EPI creatinine equation. This equation utilizes serum creatinine, sex, and age as parameters. The creatinine assay has traceable calibration to isotope dilution-mass spectrometry. Refer to KDIGO guidelines for clinical interpretation. In patients with unstable renal function, e.g. those with acute kidney injury, the eGFR may not accurately reflect actual GFR. P.O.C.T. RESULTS: POC done: Yes, See Lab Tab May 25, 2024 TREATMENT: N/A PERIPHERAL IV DATA: Ambulatory: A peripheral IV was started in the Left antecubital site with a Angio cath: 22 gauge. RADIOLOGY DEPARTMENT: CT; Exam(s) Completed: Urogram SIGNATURE: RT Lisa(Vicenta) PATIENT NAME: Ryley Mckeon DATE: May 25, 2024 TIME: 3:31 PM documented in this encounter [facility] 05-25-2024 Note HNO ID: [id number] Author: ALINE MARY RT(R) Service: ? Author Type: Senior Project Leader/Team Lead Type: Progress Notes Filed: 05/25/2024 15:31 Note Text: Radiology Service Progress Note DATE OF SERVICE: May 25, 2024 TIME: 3:31 PM PATIENT IDENTITY VERIFICATION COMPLETED USING TWO (2) STANDARD IDENTIFIERS: Name and Date of confirmed by patient verbally. FALL SCREENING: Has the patient had 2 falls in the last year or 1 fall with injury or currently using an Ambulatory Assistive Device (Walker, Cane, Wheelchair, Crutches, etc.)? No PATIENT GENDER DATA: Assigned male at PATIENT RELEVANT IMPLANT DATA REVIEWED: Yes PATIENT PRESENTS WITH AN IMPLANTABLE OR ATTACHED DAIRY MANAGER: No ALLERGIES: Reviewed and unchanged CONTRAST ALLERGY: NO. EXAM: CT -CONTRAST INDUCED NEPHROPATHY RISK FACTORS: Patient age > 60 years CREATININE: Creatinine Date Value Ref Range Status 05/05/2024 0.78 0.73 - 1.22 mg/dL Final 02/14/2024 0.90 0.73 - 1.22 mg/dL Final 08/10/2023 0.83 0.73 - 1.22 mg/dL Final Estimated Glomerular Filtration Rate Date Value Ref Range Status 05/05/2024 92 >=60 mL/min/1.73m? Final Comment: Estimated Glomerular Filtration Rate (eGFR) is calculated using the 2020 CKD-EPI creatinine equation. This equation utilizes serum creatinine, sex, and age as parameters. The creatinine assay has traceable calibration to isotope dilution-mass spectrometry. Refer to KDIGO guidelines for clinical interpretation. In patients with unstable renal function, e.g. those with acute kidney injury, the eGFR may not accurately reflect actual GFR. P.O.C.T. RESULTS: POC done: Yes, See Lab Tab May 25, 2024 TREATMENT: N/A PERIPHERAL IV DATA: Ambulatory: A peripheral IV was started in the Left antecubital site with a Angio cath: 22 gauge. RADIOLOGY DEPARTMENT: CT; Exam(s) Completed: Urogram SIGNATURE: RT Lisa(R) PATIENT NAME: Ryley Mckeon DATE: May 25, 2024 TIME: 3:31 PM [facility] 05-15-2024 History of Present illness Narrative PRIMARY CARE PHYSICIAN: Johnnie Ross [address] [place] [address] Patient Care Team: Johnnie Ross MD as PCP - General (Internal Medicine) Trey Guzman MD as Specialty Warper Tender (Cardiology) Rocky Nelson MD as Specialty Warper Tender (Cardiology) Cecil Thomas MD as Specialty Warper Tender (Urology) Josefa Rolle APRN.OPERATOR TECHNICIAN as Wireless Consultant (Internal Medicine) Evangelina Bah APRN.HOME HEALTH CLINICIAN as Wireless Consultant (Internal Medicine) Kenneth Lin MD as Specialty Warper Tender (Urology) CHIEF COMPLAINT: Follow-up for arrhythmia HISTORY OF PRESENT ILLNESS: Mr. Mckeon is a 79 year old male who presents today for a cardiovascular medicine follow-up visit. History copied from previous notes, edited as needed: Summary of previous notes: Mr. Mckeon has a history of mitral valve disease with mitral regurgitation. He underwent mitral valve repair by Dr. Winters at the [facility] in 2000. He was feeling poorly in late March 2017 or early April 2017, with primarily fatigue. He presented to his PCP in mid April 2017 and an EKG revealed atrial fibrillation or atrial flutter with rapid ventricular response rates. He was admitted to [facility] and treated with IV heparin and IV amiodarone. He was evaluated by a group work program aide, Dr. Borges. He underwent YURIDIA-guided DC cardioversion. The atrial fibrillation recurred and within a week he underwent a second cardioversion procedure. He states medical treatments were challenging due to bradycardia. He was referred to [place] [facility] and evaluated by my partner, Dr. Daly, who determined that catheter ablation might be the best approach given the pros and cons of medical therapy, with substantial challenge due to the sinus bradycardia without a cardiac pacemaker. My impression was that Mr. Mckeon has recurrent symptomatic atrial arrhythmias including atrial fibrillation and atypical appearing atrial flutter. These arrhythmias have been associated with excessively bothersome symptoms. The rapid ventricular response rates with tachycardia have been challenging to effectively treat due to substantial sinus bradycardia. Multiple rate controlling and antiarrhythmic medications are therefore not able to be prescribed due to the bradycardia. He has been appropriately treated with oral anticoagulation for stroke prevention, on apixaban (Eliquis), with [id number] = 2. He inquired as to whether he would need to be treated with oral anticoagulation forever, or whether he could stop such treatment at some point in the future particularly if he underwent successful catheter ablation. I told him that the decision regarding oral anticoagulation is made based upon risk factors and not based upon perceived atrial arrhythmia frequency or burden. Therefore, with the risk of stroke being present I would recommend that he treated with oral anticoagulation indefinitely. I did mention to him that one alternative that might be offered very soon at [facility] would be the [employer] Watchman left atrial occlusion device. Otherwise, he should remain on the Eliquis or other form of oral anticoagulation indefinitely. Regarding the atrial arrhythmias, which includes atrial fibrillation and atrial flutter, as stated above the medical management has been very challenging and, located by the presence of substantial sinus bradycardia. Therefore, if he is having excessively bothersome symptoms from the tachyarrhythmias, he would be an appropriate and good candidate for catheter ablation. As Dr. Daly mentioned in his notes, the catheter ablation would primarily target atrial fibrillation but might also target atypical and/or typical atrial flutter. I had a detailed discussion with Mr. Mckeon and his regarding my evaluation and recommendations. I do believe that he is an appropriate and good candidate for catheter ablation. His mentioned that he has been feeling reasonably well recently, and inquired whether the catheter ablation is necessary or urgent. I told them that the catheter ablation procedure is not urgent and would only be necessary for control of excessively bothersome symptoms. I reminded them however that should he develop recurrent episodes the treatment for control of the tachycardia would be challenging due to the baseline sinus bradycardia. This substantially limits the prophylactic or preventative treatment of the atrial fibrillation and exposes him to the risk of tachycardia, so there is some rationale for the catheter ablation procedure to be the most effective course of treatment at this time. After our extensive discussion, Mr. Mckeon and his expressed her understanding and I answered all of their questions to their apparent satisfaction. They would like to give my recommendations more consideration, but they seemed inclined to want to move forward with catheter ablation. In the meantime, I encouraged him to be evaluated for sleep apnea, as his asked this question during this office visit. I informed them of the known link between untreated sleep apnea and atrial arrhythmias. He will continue to follow up with his group work program aide in [place], Dr. Nelson, and with his engraver jewelry here in [place], Dr. Daly. If he decided to proceed with catheter ablation, the procedure would be scheduled here at [facility]. Interim History Dr. Guzman 05/15/2024: Mr. Mckeon presents for follow up evaluation for arrhythmia, with history of atrial fibrillation. He was last seen by me in 2018. At that time I thought he would be a good candidate for atrial fibrillation catheter ablation. We left it with him wanting to think about it and then decide whether or not to proceed. He states he did not pursue the ablation procedure because he was feeling ok back then. More recently he has been having more issues with the arrhythmia. He states he is still having symptoms from the atrial fibrillation. Metoprolol dose now 12.5 mg twice daily, reduced a couple weeks ago by [place] [facility] due to bradycardia. He reports feels sluggish but has felt that way for awhile. No fluttering. He is also having hematuria, has an appointment with Urologist soon, with cystoscopy or urogram it seems. So he has been taking the Xarelto only every other day. He states when he skips a day of the Xarelto the hematuria lessens or stops. I have confirmed and edited as necessary, the PFSH and ROS obtained by others. 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 Langston ([facility]) in 2008, considered to be benign PVCs; improved with beta-michell but developed fatigue, then treated with verapamil Prostate cancer (HCC) followed by Dr. Thomas Retinal detachment, left 01/2016 Sinus bradycardia Sinus node dysfunction (HCC) probably in part due to recurrent atrial arrhythmias Unspecified constipation PAST SURGICAL HISTORY Procedure Laterality Date CARDIAC CATH 06/23/2008 reportedly minimal CAD CARDIAC CATH 06/23/2008 LVEF 55%; LAD 10% prox, D1 20-30% ostial, LCX normal, RCA 10-20% prox, right AV branch 10-20%, right PL branch 10-20% CARDIAC STRESS TEST 06/16/2008 no stress-induced myocardial ischemia CARDIOVERSION, ELECTIVE, ELECTRICAL 04/24/2017 CARDIOVERSION, ELECTIVE, ELECTRICAL 04/30/2017 CATARACT EXTRACTION HX Left 10/2016 CATARACT EXTRACTION HX Right 11/2016 COLONOSCOPY FLX DX W/COLLJ SPEC WHEN PFRMD 08/28/2005 Colonoscopy ECHOCARDIOGRAM 07/31/2016 LVEF 60% ECHOCARDIOGRAM 07/31/2016 LVEF 60%; trivial MR with stable annuloplasty ring; mild TR EYE SURGERY HX Right 12/2016 HOLTER MONITOR 48 HOUR 04/26/2017 sinus rhythm with AF/flutter, max HR 154 bpm; reported symptoms correlated with AF and atrial flutter INGUINAL HERNIA REPAIR HX Right 1969 KNEE SURGERY HX Left 2006 arthroscopy MITRAL VALVE SURGERY HX 10/04/2000 MV repair; [facility], Dr. Winters MRI CARDIAC W/CONTRAST 08/31/2008 [facility]: LVEF 59%; normal RV, LV; no evidence for [facility]VC MYRINGOTOMY Right PROSTATE BIOPSY 12/2020 RPR RETINAL DTCHMNT INJECTION AIR/OTHER GAS Left 01/2016 also had right eye retina tacked down at same time SEED IMPLANT 06/2009 prostate STRESS TEST EXERCISE-NUCLEAR 06/16/2008 YURIDIA (TRANSESOPHAGEAL ECHO) 04/24/2017 Dr. Jony Urrutia: mild global LV systolic dysfxn; LVEF 45%; mild LaE; no clots TRURL ELECTROSURG RESCJ PROSTATE BLEED COMPLETE 10/2013 SOCIAL HISTORY Social History Tobacco Use Smoking status: Former Current packs/day: 0.00 Types: Cigarettes, Pipe Start date: 1968 Quit date: 1974 Years since quittin.1 Smokeless tobacco: Never Tobacco comments: very light, social smoking; also smoked a pipe Vaping Use Vaping status: Never Used Substance Use Topics Alcohol use: Yes Alcohol/week: 7.0 standard drinks of alcohol Types: 7 Glasses of Wine (5oz) per week Comment: glass of red wine with dinner daily Drug use: No FAMILY HISTORY Problem Relation Age of Onset other (afib) Sister ablation Coronary Artery Disease Brother had slight heart attack, ? intracoronary stent other (afib) Brother ablation other (sleep apnea) Brother Heart disease Father CABG Coronary Artery Disease Father other (heart attack) Paternal Grandfather Diabetes Mother Alzheimer's Disease Mother late 70s ALLERGIES: ALLERGIES Allergen Reactions Hydrocodone Vomiting Oxycodone Vomiting Percocet [Oxycodone* GI Upset MEDICATIONS: iv contrast (will be provided with radiology test) CT Urogram WO/W Inject, intravenously, once for 1 dose.No IV access, insert saline lock prior to the beginning of sedation, infusion, injection of imaging exam. Discontinue saline lock post exam. If Pt. has a central line or IVAD, may access for administration according to line specific nursing protocol. Once exam is complete flush line and de-access according to line specific nursing protocol in the CT contrast administration guidelines link. LORazepam (ATIVAN) 0.5 mg Take 0.25 mg by mouth once daily as needed. buPROPion XL (WELLBUTRIN XL) 300 mg 24 hr tablet Take 1 tablet by mouth once daily. XARELTO 20 mg tablet Take 20 mg by mouth once daily. coenzyme Q10 (COENZYME Q-10) 100 mg cap capsule Take 100 mg by mouth twice daily. ZINC ACETATE ORAL Take by mouth. triamcinolone acetonide (NASACORT NASAL) Use in the nose once daily. atorvastatin (LIPITOR) 40 mg tablet Take 40 mg by mouth once daily. losartan (COZAAR) 25 mg tablet Take 50 mg by mouth once daily. BIOTIN ORAL Take 5,000 mcg by mouth once daily. MULTIVITAMIN TAB Take one(1) tablet by mouth daily. metoprolol tartrate, short acting, (LOPRESSOR) 25 mg tablet Take 12.5 mg by mouth two times a day. Review of Systems Constitutional: Positive for malaise/fatigue. Negative for chills and fever. Respiratory: Negative for cough, hemoptysis, sputum production and shortness of breath. Cardiovascular: Positive for palpitations. Negative for chest pain, orthopnea and PND. Gastrointestinal: Negative for abdominal pain, blood in stool, melena, nausea and vomiting. Genitourinary: Positive for hematuria. Negative for dysuria and flank pain. Musculoskeletal: Negative for falls. Skin: Negative for rash. Neurological: Negative for focal weakness, seizures and loss of consciousness. PHYSICAL EXAMINATION: BP 125/71 Pulse 41 Wt 150 lb 3.2 oz (68.1kg) SpO2 99% Physical Exam Vitals reviewed. Constitutional: General: He is not in acute distress. Appearance: Normal appearance. HENT: Head: Normocephalic and atraumatic. Cardiovascular: Rate and Rhythm: Regular rhythm. Bradycardia present. Heart sounds: Normal heart sounds, S1 normal and S2 normal. Pulmonary: Effort: Pulmonary effort is normal. No respiratory distress. Breath sounds: Normal breath sounds. No wheezing, rhonchi or rales. Musculoskeletal: Cervical back: Neck supple. Skin: General: Skin is warm and dry. Neurological: General: No focal deficit present. Mental Status: He is alert and oriented to person, place, and time. Psychiatric: Mood and Affect: Mood normal. Behavior: Behavior normal. Thought Content: Thought content normal. CARDIOVASCULAR MEDICINE TESTING: Electrocardiogram: Sinus or ectopic atrial bradycardia 42 bpm; first-degree AV block (MA 240 ms); normal QRS duration 100 ms; QTc 409 ms; criteria for anterior or anteroseptal infarct, similar to previous EKG I have personally reviewed the Electrocardiogram. I spent a total of 45 minutes on the date of the service which included preparing to see the patient, [id number] patient care, completing clinical documentation, obtaining and/or reviewing separately obtained history, performing a medically appropriate examination, counseling and educating the patient/family/caregiver, ordering medications, tests, or procedures, communicating with other HCPs (not separately reported), independently interpreting results (not separately reported), communicating results to the patient/family/caregiver, and care coordination (not separately reported). 1. Persistent atrial fibrillation (HCC) - ICD9: 427.31, ICD10: I48.19 (primary diagnosis) 2. At risk for stroke - ICD9: V15.89, ICD10: Z91.89 3. detention (current) use of anticoagulants - ICD9: V58.61, ICD10: Z79.01 4. At risk for bleeding associated with anticoagulants - ICD9: V15.89, ICD10: Z91.89 5. Gross hematuria - ICD9: 599.71, ICD10: R31.0 6. Bradycardia - ICD9: 427.89, ICD10: R00.1 7. Sinus node dysfunction (HCC) - ICD9: 427.81, ICD10: I49.5 8. History of mitral valve repair - ICD9: V15.1, ICD10: Z98.890 9. LISSETTE (obstructive sleep apnea) - ICD9: 327.23, ICD10: G47.33 CHADS2-Vasc Score Breakdown 4 Total Score 2 Age >= 75 years old 1 History of hypertension 1 History of vascular disease HAS-BLED score: 2 points (prior bleeding -- hematuria, age > 65 years) MODIFIED VARGAS SCORE: 1 = No significant disability w/ symptoms. All usual activities/duties. IMPRESSION: Mr. Mckeon has symptomatic atrial fibrillation, I had recommended several years ago that he would be good candidate for catheter ablation. Medical therapy and antiarrhythmic drug options are very limited due to his sinus bradycardia. He would like to proceed with catheter ablation at this point. He is having issues with gross hematuria, undergoing evaluation for that condition. So he would be candidate possibly for Watchman left atrial appendage closure device as alternative to oral anticoagulation therapy. Per CMS/Medicare requirements, I would need a statement from his group work program aide or urologist if they consider long-term oral anticoagulation therapy to be associated with unfavorable risk:benefit, including the use of shared decision making tool. We could then plan for combined atrial fibrillation catheter ablation (PFA) and Watchman device implant procedure. Both procedures require oral anticoagulation therapy at least short term -- therapeutic anticoagulation so the every other day Xarelto regimen Mr. Mckeon is currently following will not suffice. If he cannot safely take even short term oral anticoagulation therapy then he would not be a candidate for either procedure. We can see what the urologist finds regarding the hematuria. I had a detailed discussion with Mr. Mckeon regarding my evaluation and recommendations. After our discussion, Mr. Mckeon expressed his understanding and I answered all his questions to his apparent satisfaction. He agrees to proceed as outlined. INFORMED CONSENT The risks, benefits and anticipated outcomes of the procedure, the risks and benefits of the alternatives to the procedure and the roles and tasks of the personnel to be involved were discussed with the patient. Consent for the procedure and agreement to proceed has been obtained. I verify that I personally obtained the consent. PLAN AND RECOMMENDATIONS: 1) Schedule atrial fibrillation/flutter catheter ablation + Watchman left atrial appendage closure device implant but whether we proceed will be determined by whether or not he can safely take short term oral anticoagulation therapy. We can see what Urology says in this regard. 2) If we determine that we can proceed with Watchman left atrial appendage closure device, I would need [facility]/Medicare mandated shared decision making documentation from a non-implanting physician (general cardiology, urology, PCP). Also, I will need to obtain screening CT scan to evaluate left atrial appendage dimensions and morphology. Will wait until we determine that we can safely treat Mr. Mckeon with short term oral anticoagulation therapy. 3) Likewise we can consider atrial fibrillation catheter ablation concomitantly with Watchman device implant if above requirements met. Trey Guzman MD 05/15/2024 Medical Decision Making: Problems: Moderate: New problem with uncertain prognosis and 1+ chronic illnesses with change Data: Unique source(s) for external note(s) reviewed: 3+ Unique test result(s) reviewed: 3+ Unique test(s) ordered: 1 Risk: Moderate: Moderate risk from testing/treatment, Drug management and Decision on minor surgery w/ risk factors Medical Decision Making Level: 4 - Moderate documented in this encounter [facility] 05-15-2024 Note HNO ID: [id number] Author: TREY GUZMAN MD Service: ? Author Type: Physician Type: Progress Notes Filed: 05/16/2024 16:18 Note Text: PRIMARY CARE PHYSICIAN: Johnnie Ross [address] [place] [address] Patient Care Team: Johnnie Ross MD as PCP - General (Internal Medicine) Trey Guzman MD as Specialty Warper Tender (Cardiology) Rocky Nelson MD as Specialty Warper Tender (Cardiology) Cecil Thomas MD as Specialty Warper Tender (Urology) Josefa Rolle APRN.OPERATOR TECHNICIAN as Wireless Consultant (Internal Medicine) Evangelina Bah APRN.HOME HEALTH CLINICIAN as Wireless Consultant (Internal Medicine) Kenneth Lin MD as Specialty Warper Tender (Urology) CHIEF COMPLAINT: Follow-up for arrhythmia HISTORY OF PRESENT ILLNESS: Mr. Mckeon is a 79 year old male who presents today for a cardiovascular medicine follow-up visit. History copied from previous notes, edited as needed: Summary of previous notes: Mr. Mckeon has a history of mitral valve disease with mitral regurgitation. He underwent mitral valve repair by Dr. Winters at the [facility] in 2000. He was feeling poorly in late March 2017 or early April 2017, with primarily fatigue. He presented to his PCP in mid April 2017 and an EKG revealed atrial fibrillation or atrial flutter with rapid ventricular response rates. He was admitted to [facility] and treated with IV heparin and IV amiodarone. He was evaluated by a group work program aide, Dr. Borges. He underwent YURIDIA-guided DC cardioversion. The atrial fibrillation recurred and within a week he underwent a second cardioversion procedure. He states medical treatments were challenging due to bradycardia. He was referred to [facility] and evaluated by my partner, Dr. Daly, who determined that catheter ablation might be the best approach given the pros and cons of medical therapy, with substantial challenge due to the sinus bradycardia without a cardiac pacemaker. My impression was that Mr. Mckeon has recurrent symptomatic atrial arrhythmias including atrial fibrillation and atypical appearing atrial flutter. These arrhythmias have been associated with excessively bothersome symptoms. The rapid ventricular response rates with tachycardia have been challenging to effectively treat due to substantial sinus bradycardia. Multiple rate controlling and antiarrhythmic medications are therefore not able to be prescribed due to the bradycardia. He has been appropriately treated with oral anticoagulation for stroke prevention, on apixaban (Eliquis), with [id number] = 2. He inquired as to whether he would need to be treated with oral anticoagulation forever, or whether he could stop such treatment at some point in the future particularly if he underwent successful catheter ablation. I told him that the decision regarding oral anticoagulation is made based upon risk factors and not based upon perceived atrial arrhythmia frequency or burden. Therefore, with the risk of stroke being present I would recommend that he treated with oral anticoagulation indefinitely. I did mention to him that one alternative that might be offered very soon at [facility] would be the [employer] Watchman left atrial occlusion device. Otherwise, he should remain on the Eliquis or other form of oral anticoagulation indefinitely. Regarding the atrial arrhythmias, which includes atrial fibrillation and atrial flutter, as stated above the medical management has been very challenging and, located by the presence of substantial sinus bradycardia. Therefore, if he is having excessively bothersome symptoms from the tachyarrhythmias, he would be an appropriate and good candidate for catheter ablation. As Dr. Daly mentioned in his notes, the catheter ablation would primarily target atrial fibrillation but might also target atypical and/or typical atrial flutter. I had a detailed discussion with Mr. Mckeon and his regarding my evaluation and recommendations. I do believe that he is an appropriate and good candidate for catheter ablation. His mentioned that he has been feeling reasonably well recently, and inquired whether the catheter ablation is necessary or urgent. I told them that the catheter ablation procedure is not urgent and would only be necessary for control of excessively bothersome symptoms. I reminded them however that should he develop recurrent episodes the treatment for control of the tachycardia would be challenging due to the baseline sinus bradycardia. This substantially limits the prophylactic or preventative treatment of the atrial fibrillation and exposes him to the risk of tachycardia, so there is some rationale for the catheter ablation procedure to be the most effective course of treatment at this time. After our extensive discussion, Mr. Mckeon and his expressed her understanding and I answered all of thei (more content not included)... [facility] 05-11-2024 History of Present illness Narrative Radiation Oncology - Follow Up Note This is a virtual visit using a HIPAA compliant video platform. It required patient-provider interaction for the medical decision making as documented below. The patient consented to the virtual Visit PATIENT NAME: Ryley Mckeon PATIENT DIAGNOSIS: 79 yo gentleman with hx of adenocarcinoma of the prostate, initial PSA of 7.27 ng/mL, [place] of 3+4=7. Status post I-125 seed implantation on 06/15/2021. INTERVAL HISTORY: Ryley presents via virtual visit for routine surveillance of prostate cancer follow-up 6 months after having last been seen. He continues to experience minor LUTS. Not on medication PSA HISTORY: PSA (ng/mL) Date Value 04/29/2024 0.18 08/10/2023 0.37 05/13/2023 0.41 02/26/2023 0.43 04/25/2021 6.63 PSA, Percent Free (%) Date Value 04/25/2021 12 ALLERGIES Allergen Reactions Hydrocodone Vomiting Oxycodone Vomiting Percocet [Oxycodone* GI Upset iv contrast (will be provided with radiology test) CT Urogram WO/W Inject, intravenously, once for 1 dose.No IV access, insert saline lock prior to the beginning of sedation, infusion, injection of imaging exam. Discontinue saline lock post exam. If Pt. has a central line or IVAD, may access for administration according to line specific nursing protocol. Once exam is complete flush line and de-access according to line specific nursing protocol in the CT contrast administration guidelines link. LORazepam (ATIVAN) 0.5 mg Take 0.25 mg by mouth once daily as needed. metoprolol tartrate, short acting, (LOPRESSOR) 25 mg tablet Take 25 mg by mouth two times a day. benzonatate (TESSALON PERLE) 100 mg capsule Take 1 capsule by mouth three times a day as needed for cough. buPROPion XL (WELLBUTRIN XL) 300 mg 24 hr tablet Take 1 tablet by mouth once daily. XARELTO 20 mg tablet Tadalafil (CIALIS) 20 mg tablet Take 1 tablet by mouth as needed. Take 1-2 hours before sexual activity. apixaban (ELIQUIS) 5 mg tab(s) Take 1 tablet by mouth two times a day. coenzyme Q10 (COENZYME Q-10) 100 mg cap capsule Take 100 mg by mouth twice daily. ZINC ACETATE ORAL Take by mouth. triamcinolone acetonide (NASACORT NASAL) Use in the nose once daily. atorvastatin (LIPITOR) 40 mg tablet Take 40 mg by mouth once daily. losartan (COZAAR) 25 mg tablet Take 50 mg by mouth once daily. BIOTIN ORAL Take 5,000 mcg by mouth once daily. MULTIVITAMIN TAB Take one(1) tablet by mouth daily. REVIEW OF SYSTEMS: D/N = 5-/ Hematuria:yes cysto at next appointment Dysuria: No Incontinence: No Urgency: mild Catheter use: No Medications to aid urination: none - AUA Questionnaire (symptoms within the past 1 month) Incomplete emptyin (not at all) Frequency (within 2 hours): 0 (not at all) Intermittency: 0 (not at all) Urgency: 3 (less than 1 time in 5) Weak stream: 0 (not at all) Strainin (not at all) Nocturia: 1x per night - Total AUA Score: 4 Bowel movement frequency: 1-2/day Bowel movement quality: normal Blood per rectum: yes Last colonoscopy: 2015 Sexual activity: Able to maintain erections with medications Androgen deprivation: Never. KPS: 90 General Appearance: Alert and oriented. No acute distress. Rectal exam is deferred. ASSESSMENT Ryley continues to experience nocturia 1 x. His PSA continues to drop nicely I spent a total of 20 minutes on the date of the service which included preparing to see the patient, [id number] patient care, completing clinical documentation, obtaining and/or reviewing separately obtained history, ordering medications, tests, or procedures, and communicating results to the patient/family/caregiver. and discussion of his ongoing post radiation follow up. We reviewed current medications for update. We discussed exercise/diet recommendations for increased aerobic fitness and weight control. he does not smoke cigarettes and does moderately' drink alcohol. All questions answered at this appointment. Parts of Progress Note were copied from Progress note dated 10/21/2023 but alvarez elements reviewed, confirmed, and\or updated by me (Camacho Juarez CNP/GENEVIEVE ) on May 11, 2024 PLAN: F/U via virtual visit in October 2024 with a PSA Signed by: Haja Juarez APRN.CNP cc: Johnnie Ross [address] [place] [address] No referring provider defined for this encounter. documented in this encounter [facility] 05-11-2024 Note HNO ID: [id number] Author: HAJA JUAREZ APRN.HOME HEALTH CLINICIAN Service: ? Author Type: Nurse Practitioner Type: Progress Notes Filed: 05/11/2024 11:57 Note Text: Radiation Oncology - Follow Up Note This is a virtual visit using a HIPAA compliant video platform. It required patient-provider interaction for the medical decision making as documented below. The patient consented to the virtual Visit PATIENT NAME: Ryley Mckeon PATIENT DIAGNOSIS: 79 yo gentleman with hx of adenocarcinoma of the prostate, initial PSA of 7.27 ng/mL, [place] of 3+4=7. Status post I-125 seed implantation on 06/15/2021. INTERVAL HISTORY: Ryley presents via virtual visit for routine surveillance of prostate cancer follow-up 6 months after having last been seen. He continues to experience minor LUTS. Not on medication PSA HISTORY: PSA (ng/mL) Date Value 04/29/2024 0.18 08/10/2023 0.37 05/13/2023 0.41 02/26/2023 0.43 04/25/2021 6.63 PSA, Percent Free (%) Date Value 04/25/2021 12 ALLERGIES Allergen Reactions Hydrocodone Vomiting Oxycodone Vomiting Percocet [Oxycodone* GI Upset iv contrast (will be provided with radiology test) CT Urogram WO/W Inject, intravenously, once for 1 dose.No IV access, insert saline lock prior to the beginning of sedation, infusion, injection of imaging exam. Discontinue saline lock post exam. If Pt. has a central line or IVAD, may access for administration according to line specific nursing protocol. Once exam is complete flush line and de-access according to line specific nursing protocol in the CT contrast administration guidelines link. LORazepam (ATIVAN) 0.5 mg Take 0.25 mg by mouth once daily as needed. metoprolol tartrate, short acting, (LOPRESSOR) 25 mg tablet Take 25 mg by mouth two times a day. benzonatate (TESSALON PERLE) 100 mg capsule Take 1 capsule by mouth three times a day as needed for cough. buPROPion XL (WELLBUTRIN XL) 300 mg 24 hr tablet Take 1 tablet by mouth once daily. XARELTO 20 mg tablet Tadalafil (CIALIS) 20 mg tablet Take 1 tablet by mouth as needed. Take 1-2 hours before sexual activity. apixaban (ELIQUIS) 5 mg tab(s) Take 1 tablet by mouth two times a day. coenzyme Q10 (COENZYME Q-10) 100 mg cap capsule Take 100 mg by mouth twice daily. ZINC ACETATE ORAL Take by mouth. triamcinolone acetonide (NASACORT NASAL) Use in the nose once daily. atorvastatin (LIPITOR) 40 mg tablet Take 40 mg by mouth once daily. losartan (COZAAR) 25 mg tablet Take 50 mg by mouth once daily. BIOTIN ORAL Take 5,000 mcg by mouth once daily. MULTIVITAMIN TAB Take one(1) tablet by mouth daily. REVIEW OF SYSTEMS: D/N = 5-09/06 Hematuria:yes cysto at next appointment Dysuria: No Incontinence: No Urgency: mild Catheter use: No Medications to aid urination: none - AUA Questionnaire (symptoms within the past 1 month) Incomplete emptyin (not at all) Frequency (within 2 hours): 0 (not at all) Intermittency: 0 (not at all) Urgency: 3 (less than 1 time in 5) Weak stream: 0 (not at all) Strainin (not at all) Nocturia: 1x per night - Total AUA Score: 4 Bowel movement frequency: 1-2/day Bowel movement quality: normal Blood per rectum: yes Last colonoscopy: 2015 Sexual activity: Able to maintain erections with medications Androgen deprivation: Never. KPS: 90 General Appearance: Alert and oriented. No acute distress. Rectal exam is deferred. ASSESSMENT Ryley continues to experience nocturia 1 x. His PSA continues to drop nicely I spent a total of 20 minutes on the date of the service which included preparing to see the patient, [id number] patient care, completing clinical documentation, obtaining and/or reviewing separately obtained history, ordering medications, tests, or procedures, and communicating results to the patient/family/caregiver. and discussion of his ongoing post radiation follow up. We reviewed current medications for update. We discussed exercise/diet recommendations for increased aerobic fitness and weight control. he does not smoke cigarettes and does moderately' drink alcohol. All questions answered at this appointment. Parts of Progress Note were copied from Progress note dated 10/21/2023 but alvarez elements reviewed, confirmed, andor updated by me (Camacho Juarez CNP/GENEVIEVE ) on May 11, 2024 PLAN: F/U via virtual visit in October 2024 with a PSA Signed by: Haja Juarez APRN.EMILIA cc: Johnnie Ross [address] [place] [address] No referring provider defined for this encounter. [facility] 05-04-2024 Telephone encounter Note Returned call to Mr. Mckeon. Notified him that a cysto and CTU are ordered for him and he will be contacted to get those scheduled. He states that he has a hard time with scopes and could he have a sedative. 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 Patient verbalized understanding. All questions answered. Ruth Brewer RN, BSN Triage Nurse Department of Urology [facility] 05-04-2024 Miscellaneous Notes Returned call to Mr. Mckeon. Notified him that a cysto and CTU are ordered for him and he will be contacted to get those scheduled. He states that he has a hard time with scopes and could he have a sedative. 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 Patient verbalized understanding. All questions answered. Ruth Brewer RN, BSN Triage Nurse Department of Urology [facility] documented in this encounter [facility] 04-02-2024 Instructions Johnnie Ross MD - 04/02/2024 3:37 PM EST - Continue taking Xarelto as prescribed. - Continue using Tessalon Perles and Mucinex for cough relief. - Use Nasacort for post-nasal drip as needed. - You may try Delsym for additional cough relief if necessary. - Monitor for new symptoms such as fevers or chills and report them to us immediately. - Undergo the scheduled YURIDIA on Saturday to evaluate the need for cardioversion. documented in this encounter [facility] 04-02-2024 History of Present illness Narrative This note was created using [employer]. Subjective Ryley Mckeon is a 78 year old male. Patient presents with: Sore Throat: Was sore a week ago went away . Now cough and voice is hoarse SUBJECTIVE: Ryley Mckeon is a 78 year old year old gentleman here today for acute same day follow up appointment for review of medical conditions: Sore throat and a-fib. Laryngitis - Very persistent cough and phlegm. Denies pain or fever. - Going on for about 10 days - Using vaporizer at night; taking mucinex occasionally which has helped and benzonatate - Unable to sleep d/t cough - feels like he's not eating as much; noticed a slight decrease in weight today but he states this is within his normal fluctuation - No known sick contacts - Nasacort has been helpful in keeping some symptoms at bay A-fib: YURIDIA and cardioversion scheduled for Saturday Ryley Mckeon is a 78-year-old male with a history of A-fib and A-flutter, presenting with symptoms of laryngitis and cough for the past 10 days. Ryley reports experiencing laryngitis and cough for the past 10 days, attributing the hoarseness to frequent throat clearing. He denies persistent fevers, chills, or severe dyspnea. He has been using Tessalon Perles and Mucinex, which have been effective in managing the cough, and is also using Nasacort for post-nasal drip. Recently, Ryley visited urgent care due to palpitations and was advised to go to the ER given his history of A-fib and A-flutter. In the ER, he was evaluated by Dr. Adamson, who confirmed he was in A-fib/A-flutter with an elevated heart rate. A YURIDIA is scheduled for next Saturday to assess the feasibility of cardioversion to restore sinus rhythm. Ryley is currently on Xarelto, having switched back from Eliquis due to insurance considerations and cost-effectiveness. PAST MEDICAL HISTORY Diagnosis Date At risk for stroke [id number] = 2 (HTN, age > 65 yrs) Atrial flutter (HCC) probably atypical form; symptomatic Bradycardia sinus bradycardia Coronary artery disease involving [place] coronary artery of [place] heart without angina pectoris Dr Nelson--[facility] Dyslipidemia Hemorrhage of gastrointestinal tract, unspecified HTN (hypertension) Internal hemorrhoids without mention of complication detention (current) use of anticoagulants apixaban (Eliquis); indication: stroke prevention AF Macular hole of right eye Mitral valve regurgitation myxomatous mitral valve regurgitation, s/p MV repair 2000 Persistent atrial fibrillation (HCC) symptomatic; also has paroxysmal episodes; medical therapy very limited by sinus bradycardia PMH - PAST MEDICAL HISTORY OF blood in stool Premature ventricular contractions (PVCs) (VPCs) symptomatic; evaluated by Dr. Langston ([facility]) in 2008, considered to be benign PVCs; improved with beta-michell but developed fatigue, then treated with verapamil Prostate cancer (HCC) followed by Dr. Thomas Retinal detachment, left 01/2016 Sinus bradycardia Sinus node dysfunction (HCC) probably in part due to recurrent atrial arrhythmias Unspecified constipation Current Outpatient Medications Medication Sig buPROPion XL (WELLBUTRIN XL) 300 mg 24 hr tablet Take 1 tablet by mouth once daily. XARELTO 20 mg tablet Tadalafil (CIALIS) 20 mg tablet Take 1 tablet by mouth as needed. Take 1-2 hours before sexual activity. apixaban (ELIQUIS) 5 mg tab(s) Take 1 tablet by mouth two times a day. (Patient not taking: Reported on 03/30/2024) coenzyme Q10 (COENZYME Q-10) 100 mg cap capsule Take 100 mg by mouth twice daily. ZINC ACETATE ORAL Take by mouth. triamcinolone acetonide (NASACORT NASAL) Use in the nose once daily. atorvastatin (LIPITOR) 40 mg tablet Take 40 mg by mouth once daily. losartan (COZAAR) 25 mg tablet Take 50 mg by mouth once daily. BIOTIN ORAL Take 5,000 mcg by mouth once daily. MULTIVITAMIN TAB Take one(1) tablet by mouth daily. No current facility-administered medications for this visit. Review of Systems Constitutional: Positive for fatigue. Negative for fever. HENT: Positive for postnasal drip and sore throat. Negative for congestion and rhinorrhea. Respiratory: Positive for cough. Negative for chest tightness, shortness of breath and wheezing. Cardiovascular: Positive for palpitations. Negative for chest pain. Gastrointestinal: Negative for constipation, diarrhea, nausea and vomiting. Objective There were no vitals taken for this visit. Physical Exam Constitutional: Appearance: Normal appearance. HENT: Head: Normocephalic and atraumatic. Nose: Comments: - mild erythema and swelling of the turbinates b/l Mouth/Throat: Mouth: Mucous membranes are moist. Pharynx: Oropharynx is clear. Postnasal drip present. No oropharyngeal exudate or posterior oropharyngeal erythema. Neck: Vascular: No carotid bruit. Cardiovascular: Rate and Rhythm: Regular rhythm. Tachycardia present. Pulmonary: Effort: Pulmonary effort is normal. Breath sounds: Normal breath sounds. No wheezing, rhonchi or rales. Musculoskeletal: Cervical back: Normal range of motion and neck supple. Right lower leg: No edema. Left lower leg: No edema. Lymphadenopathy: Cervical: No cervical adenopathy. Skin: General: Skin is warm and dry. Neurological: Mental Status: He is alert. Assessment and Plan # Atrial fibrillation and flutter (HCC) (I48.91) - Recent episode of atrial fibrillation/flutter with tachycardia; evaluated by Dr. Nelson in the ER. - Scheduled for YURIDIA next Saturday to assess for potential cardioversion. - Currently on Xarelto; previously on Eliquis. Patient switched back to Xarelto due to insurance coverage and cost considerations. - Ordered EKG to establish baseline. # Acute bronchitis, unspecified organism (J20.9) # Sore throat (J02.9) - Symptoms of laryngitis and cough for the past 10 days; no persistent fevers, chills, or severe dyspnea. - Likely viral etiology; advised that recovery may take a couple of weeks. - Currently using Tessalon Perles and Mucinex for cough management; Nasacort for post-nasal drip. - Recommended Delsym as an additional option for cough if needed. - Advised to monitor for new symptoms such as fevers or chills, which may indicate bacterial superinfection. TEACHING PROVIDER (Physician/PA/CLOTH WASHER OPERATOR) NOTE OF PERSONAL INVOLVEMENT IN CARE: I have personally seen and examined the patient and performed the medical decision-making components. I have reviewed the Medical Student's documentation and verified the findings in the note as written. Any additions or changes are noted in bold/italics. Signature: Johnnie Ross Date: 04/02/2024 Time: 3:38 PM Johnnie Ross MD documented in this encounter [facility] 04-02-2024 Note HNO ID: [id number] Author: JOHNNIE ROSS MD Service: ? Author Type: Physician Type: Progress Notes Filed: 04/02/2024 15:50 Note Text: This note was created using [employer]. Subjective Ryley Mckeon is a 78 year old male. Patient presents with: Sore Throat: Was sore a week ago went away . Now cough and voice is hoarse SUBJECTIVE: Ryley Mckeon is a 78 year old year old gentleman here today for acute same day follow up appointment for review of medical conditions: Sore throat and a-fib. Laryngitis - Very persistent cough and phlegm. Denies pain or fever. - Going on for about 10 days - Using vaporizer at night; taking mucinex occasionally which has helped and benzonatate - Unable to sleep d/t cough - feels like he's not eating as much; noticed a slight decrease in weight today but he states this is within his normal fluctuation - No known sick contacts - Nasacort has been helpful in keeping some symptoms at bay A-fib: YURIDIA and cardioversion scheduled for Saturday Ryley Mckeon is a 78-year-old male with a history of A-fib and A-flutter, presenting with symptoms of laryngitis and cough for the past 10 days. Ryley reports experiencing laryngitis and cough for the past 10 days, attributing the hoarseness to frequent throat clearing. He denies persistent fevers, chills, or severe dyspnea. He has been using Tessalon Perles and Mucinex, which have been effective in managing the cough, and is also using Nasacort for post-nasal drip. Recently, Ryley visited urgent care due to palpitations and was advised to go to the ER given his history of A-fib and A-flutter. In the ER, he was evaluated by Dr. Adamson, who confirmed he was in A-fib/A-flutter with an elevated heart rate. A YURIDIA is scheduled for next Saturday to assess the feasibility of cardioversion to restore sinus rhythm. Ryley is currently on Xarelto, having switched back from Eliquis due to insurance considerations and cost-effectiveness. 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 Langston ([facility]) in 2008, considered to be benign PVCs; improved with beta-michell but developed fatigue, then treated with verapamil Prostate cancer (HCC) followed by Dr. Thomas Retinal detachment, left 01/2016 Sinus bradycardia Sinus node dysfunction (HCC) probably in part due to recurrent atrial arrhythmias Unspecified constipation Current Outpatient Medications Medication Sig buPROPion XL (WELLBUTRIN XL) 300 mg 24 hr tablet Take 1 tablet by mouth once daily. XARELTO 20 mg tablet Tadalafil (CIALIS) 20 mg tablet Take 1 tablet by mouth as needed. Take 1-2 hours before sexual activity. apixaban (ELIQUIS) 5 mg tab(s) Take 1 tablet by mouth two times a day. (Patient not taking: Reported on 03/30/2024) coenzyme Q10 (COENZYME Q-10) 100 mg cap capsule Take 100 mg by mouth twice daily. ZINC ACETATE ORAL Take by mouth. triamcinolone acetonide (NASACORT NASAL) Use in the nose once daily. atorvastatin (LIPITOR) 40 mg tablet Take 40 mg by mouth once daily. losartan (COZAAR) 25 mg tablet Take 50 mg by mouth once daily. BIOTIN ORAL Take 5,000 mcg by mouth once daily. MULTIVITAMIN TAB Take one(1) tablet by mouth daily. No current facility-administered medications for this visit. Review of Systems Constitutional: Positive for fatigue. Negative for fever. HENT: Positive for postnasal drip and sore throat. Negative for congestion and rhinorrhea. Respiratory: Positive for cough. Negative for chest tightness, shortness of breath and wheezing. Cardiovascular: Positive for palpitations. Negative for chest pain. Gastrointestinal: Negative for constipation, diarrhea, nausea and vomiting. Objective There were no vitals taken for this visit. Physical Exam Constitutional: Appearance: Normal appearance. HENT: Head: Normocephalic and atraumatic. Nose: Comments: - mild erythema and swelling of the turbinates b/l Mouth/Throat: Mouth: Mucous membranes are moist. Pharynx: Oropharynx is clear. Postnasal drip present. No oropharyngeal exudate or p (more content not included)... [facility] 04-02-2024 Note [facility] Medical Records Department [address] [place] [address] History Physical Exam 04/02/24 1117 MR#: [id number] Acct: [id number] Name: RYLEY MCKEON Rep #: [id number] : 1945 78 From: Kash CANDELAR[place] PCP: Dr. Johnnie Ross MD Status:PRE CLI Location: [facility] History and Physical RYLEY MCKEON, is a 78M who presents to the office today for an updated HPI for a YURIDIA/DCCV. He has a history of mitral valve disease status post mitral valve repair for mitral valve prolapse in 2000 at the [facility]. He had presented a while ago with atrial flutter for which she underwent YURIDIA guided cardioversion and repeat cardioversion. 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 He sought the EP doctors at [facility] and it was decided to pursue expectant therapy. He has done well since. He did have an echocardiogram performed in 2021 which demonstrated stable ejection fraction of 60% and stable status post mitral valve repair with an annuloplasty ring. He has been on anticoagulation has done well denied any further chest pain or shortness of breath or paroxysmal nocturnal dyspnea or pedal edema he has not had any arrhythmias. Patient was seen in the emergency room on March 30, 2024 with atrial fibrillation. He does not tolerated rate limiting medications. Because of this he will undergo a YURIDIA then a cardioversion. [facility] Medical History Nonobstructive atherosclerosis of coronary artery Myxomatous mitral valve regurgitation Nonrheumatic mitral (valve) prolapse Atypical atrial flutter Prostate cancer Paroxysmal atrial fibrillation Essential (primary) hypertension Obstructive sleep apnea Hypersomnia, unspecified Depression Dyslipidemia Surgical History H/O transurethral destruction of bladder lesion (10/2013) History of cardioversion (04/30/17) History of left heart catheterization (06/23/08) Macular hole repair Hx of cataract surgery Retinal detachment PE Tube right ear H/O prostate biopsy Left knee meniscus repair H/O inguinal hernia repair History of mitral valve repair (10/04/00) Family History Father , age 89 CAD (coronary artery disease) Hx of CABG, Onset Age: 68 Uncle CAD (coronary artery disease) Mother Alzheimers disease Social History household members: spouse housing: house current occupational status: employed current occupation: [employer] pets and animals: Yes pets and animals: dog(s) Smoking Status: Former smoker second hand exposure: No alcohol intake: current alcohol intake frequency: a few times a week Alcohol type: beer and wine substance use type: does not use ROS Const Const: Negative for fatigue, weakness, headache(s), daytime sleepiness or difficulty sleeping ENT ENT: Negative for headache(s), dizziness or Nosebleed/epistaxis Cardio Chest Pain: No Palpitations: Yes (very seldom - lasts seconds) Edema: None Resp Respiratory: Negative for SOB with activity, SOB at rest, SOB orthopnea SOB lying down or Cough GI GI: Negative nausea, vomiting or heartburn Neuro Neuro: Negative for dizziness, lightheadedness, near syncope, headache(s) or weakness Endo Endo: Negative for fatigue Cardiology Exam Const Appearance: cooperative, healthy appearing, no acute distress, well developed and well groomed Nutritional Appearance: average body habitus and well nourished Orientation: alert, awake and oriented x3 Head Head: normal to inspection, normocephalic and atraumatic Ears: hearing grossly normal bilaterally and external ears normal Nose: external nose normal, nares normal, nasal mucous membranes and turbinates normal, septum normal and no nasal discharge Face and Sinus: face symmetric Mouth: oral mucosae normal, tongue normal, oropharynx normal and moist mucous membranes Teeth and gingiva: dentition normal Throat: posterior oropharynx normal, tonsils normal and uvula midline Eyes General: appearance normal, both eyes and all related structures Eyelids: eyelids normal Conjunctivae: conjunctivae normal Pupils: PERRL, normal by confrontation and accommodation normal EOM: EOM intact bilaterally Neck Neck: normal visual inspection, trachea midline and no JVD JVD: +5 Carotids: normal carotid upstroke and bounding pulses Chest Chest inspection: normal inspection of the chest, symmetric chest movement and normal respiratory effort Auscultation: Bilateral: Clear to Auscultation Cardio Palpation: normal PMI Rate: regular rate Rhythm: regular rhythm Heart sounds: S1 nor (more content not included)... [facility] 04-02-2024 Telephone encounter Note Phoned patient spoke to Michelle, scheduled to see PCP at 220 pm today. [facility] 04-02-2024 Miscellaneous Notes Phoned patient spoke to Michelle, scheduled to see PCP at 220 pm today. Offer appointment--there are openings on my schedule Patient Michelle calling has had sore throat for almost 2 weeks now. He was in express care on 03/30 and was sent to [facility] ER because of tachycardia. ER put him on Metoprolol 25 mg one tablet twice daily and he is set up for YURIDIA on 04/[address] Nelson. ER did COVID test which was negative, did not do strep test. She said can not sleep at night from the coughing, post nasal drainage, now has yellow secretions, voice hoarse, sore throat, no fever. He uses [facility] for his pharmacy, asking if he could have antibiotic rx? He is afraid YURIDIA will be cancelled due to his throat. no appt available to get him scheduled for today to be seen. Please advise documented in this encounter [facility] 04-02-2024 Telephone encounter Note Offer appointment--there are openings on my schedule [facility] 04-02-2024 Telephone encounter Note Patient Michelle calling has had sore throat for almost 2 weeks now. He was in express care on 03/30 and was sent to [facility] ER because of tachycardia. ER put him on Metoprolol 25 mg one tablet twice daily and he is set up for YURIDIA on 04/[address] Nelson. ER did COVID test which was negative, did not do strep test. She said can not sleep at night from the coughing, post nasal drainage, now has yellow secretions, voice hoarse, sore throat, no fever. He uses [facility] for his pharmacy, asking if he could have antibiotic rx? He is afraid YURIDIA will be cancelled due to his throat. no appt available to get him scheduled for today to be seen. Please advise [facility] 03-30-2024 Note HNO ID: [id number] Author: GOMEZ WANG APRN.HOME HEALTH CLINICIAN Service: ? Author Type: Nurse Practitioner Type: Progress Notes Filed: 03/30/2024 18:05 Note Text: Subjective HPI Nontoxic-appearing male presents urgent care chief complaint cough sore throat. Duration of symptoms 6 days. Associated symptoms elevated heart rate cough sore throat. Presents today for evaluation. States heart rate has been in the low 100s over the last few days. History of A-fib. Has needed cardioversion multiple times for this in the past. Presents today for evaluation .Patient presents with: Cough: Dry cough, laryngitis x 6 days PAST MEDICAL HISTORY Diagnosis Date At risk for stroke [id number] = 2 (HTN, age > 65 yrs) Atrial flutter (HCC) probably atypical form; symptomatic Bradycardia sinus bradycardia Coronary artery disease involving [place] coronary artery of [place] heart without angina pectoris Dr Nelson--[facility] Dyslipidemia Hemorrhage of gastrointestinal tract, unspecified HTN (hypertension) Internal hemorrhoids without mention of complication detention (current) use of anticoagulants apixaban (Eliquis); indication: stroke prevention AF Macular hole of right eye Mitral valve regurgitation myxomatous mitral valve regurgitation, s/p MV repair 2000 Persistent atrial fibrillation (HCC) symptomatic; also has paroxysmal episodes; medical therapy very limited by sinus bradycardia PMH - PAST MEDICAL HISTORY OF blood in stool Premature ventricular contractions (PVCs) (VPCs) symptomatic; evaluated by Dr. Langston ([facility]) in 2008, considered to be benign PVCs; improved with beta-michell but developed fatigue, then treated with verapamil Prostate cancer (HCC) followed by Dr. Thomas Retinal detachment, left 01/2016 Sinus bradycardia Sinus node dysfunction (HCC) probably in part due to recurrent atrial arrhythmias Unspecified constipation PAST SURGICAL HISTORY Procedure Laterality Date CARDIAC CATH 06/23/2008 reportedly minimal CAD CARDIAC CATH 06/23/2008 LVEF 55%; LAD 10% prox, D1 20-30% ostial, LCX normal, RCA 10-20% prox, right AV branch 10-20%, right PL branch 10-20% CARDIAC STRESS TEST 06/16/2008 no stress-induced myocardial ischemia CARDIOVERSION ELECTIVE ARRHYTHMIA INTERNAL SPX 04/24/2017 CARDIOVERSION ELECTIVE ARRHYTHMIA INTERNAL SPX 04/30/2017 CATARACT EXTRACTION HX Left 10/2016 CATARACT EXTRACTION HX Right 11/2016 COLONOSCOPY FLX DX W/COLLJ SPEC WHEN PFRMD 08/28/2005 Colonoscopy ECHO TRANSESOPHAG CONGEN PROBE [facility] 04/24/2017 Dr. Jony Urrutia: mild global LV systolic dysfxn; LVEF 45%; mild LaE; no clots ECHOCARDIOGRAM 07/31/2016 LVEF 60% ECHOCARDIOGRAM 07/31/2016 LVEF 60%; trivial MR with stable annuloplasty ring; mild TR EYE SURGERY HX Right 12/2016 HOLTER MONITOR 48 HOUR 04/26/2017 sinus rhythm with AF/flutter, max HR 154 bpm; reported symptoms correlated with AF and atrial flutter INGUINAL HERNIA REPAIR HX Right 1969 KNEE SURGERY HX Left 2006 arthroscopy MITRAL VALVE SURGERY HX 10/04/2000 MV repair; [facility], Dr. Winters MRI CARDIAC W/CONTRAST 08/31/2008 [facility]: LVEF 59%; normal RV, LV; no evidence for ARVC MYRINGOTOMY Right PROSTATE BIOPSY 12/2020 [facility] RETINAL DTCHMNT INJECTION AIR/OTHER GAS Left 01/2016 also had right eye retina tacked down at same time SEED IMPLANT 06/2009 prostate STRESS TEST EXERCISE-NUCLEAR 06/16/2008 TRURL ELECTROSURG RESCJ PROSTATE BLEED COMPLETE 10/2013 ALLERGIES Hydrocodone, Oxycodone, and Percocet [Oxycodone-Acetaminophen] MEDICATIONS buPROPion XL (WELLBUTRIN XL) 300 mg 24 hr tablet Take 1 tablet by mouth once daily. XARELTO 20 mg tablet Tadalafil (CIALIS) 20 mg tablet Take 1 tablet by mouth as needed. Take 1-2 hours before sexual activity. coenzyme Q10 (COENZYME Q-10) 100 mg cap capsule Take 100 mg by mouth twice daily. ZINC ACETATE ORAL Take by mouth. triamcinolone acetonide (NASACORT NASAL) Use in the nose once daily. atorvastatin (LIPITOR) 40 mg tablet Take 40 mg by mouth once daily. losartan (COZAAR) 25 mg tablet Take 50 mg by mouth once daily. BIOTIN ORAL Take 5,000 mcg by mouth once daily. MULTIVITAMIN TAB Take one(1) tablet by mouth daily. apixaban (ELIQUIS) 5 mg tab(s) Take 1 tablet by mouth two times a day. (Patient not taking: Reported on 03/30/2024) FAMILY HISTORY Problem Relation Age of Onset other (afib) Sister ablation Coronary Artery Disease Brother had slight heart attack, ? intracoronary stent other (afib) Brother ablation other (sleep apnea) Brother Heart disease Father CABG Coronary Artery Disease Father other (heart attack) Paternal Grandfather Diabetes Mother Alzheimer's Disease Mother late 70s Social History Tobacco Use Smoking status: Former Current packs/day: 0.00 Types: Cigarettes, Pipe Start date: 1968 Quit date: 1974 Years since quittin.0 Smokeless tobacco: Never Tobacco (more content not included)... [facility] 03-30-2024 History of Present illness Narrative Subjective HPI Nontoxic-appearing male presents urgent care chief complaint cough sore throat. Duration of symptoms 6 days. Associated symptoms elevated heart rate cough sore throat. Presents today for evaluation. States heart rate has been in the low 100s over the last few days. History of A-fib. Has needed cardioversion multiple times for this in the past. Presents today for evaluation .Patient presents with: Cough: Dry cough, laryngitis x 6 days PAST MEDICAL HISTORY Diagnosis Date At risk for stroke [id number] = 2 (HTN, age > 65 yrs) Atrial flutter (HCC) probably atypical form; symptomatic Bradycardia sinus bradycardia Coronary artery disease involving [place] coronary artery of [place] heart without angina pectoris Dr Nelson--[facility] Dyslipidemia Hemorrhage of gastrointestinal tract, unspecified HTN (hypertension) Internal hemorrhoids without mention of complication detention (current) use of anticoagulants apixaban (Eliquis); indication: stroke prevention AF Macular hole of right eye Mitral valve regurgitation myxomatous mitral valve regurgitation, s/p MV repair 2000 Persistent atrial fibrillation (HCC) symptomatic; also has paroxysmal episodes; medical therapy very limited by sinus bradycardia PMH - PAST MEDICAL HISTORY OF blood in stool Premature ventricular contractions (PVCs) (VPCs) symptomatic; evaluated by Dr. Langston ([facility]) in 2008, considered to be benign PVCs; improved with beta-michell but developed fatigue, then treated with verapamil Prostate cancer (HCC) followed by Dr. Thomas Retinal detachment, left 01/2016 Sinus bradycardia Sinus node dysfunction (HCC) probably in part due to recurrent atrial arrhythmias Unspecified constipation PAST SURGICAL HISTORY Procedure Laterality Date CARDIAC CATH 06/23/2008 reportedly minimal CAD CARDIAC CATH 06/23/2008 LVEF 55%; LAD 10% prox, D1 20-30% ostial, LCX normal, RCA 10-20% prox, right AV branch 10-20%, right PL branch 10-20% CARDIAC STRESS TEST 06/16/2008 no stress-induced myocardial ischemia CARDIOVERSION ELECTIVE ARRHYTHMIA INTERNAL SPX 04/24/2017 CARDIOVERSION ELECTIVE ARRHYTHMIA INTERNAL SPX 04/30/2017 CATARACT EXTRACTION HX Left 10/2016 CATARACT EXTRACTION HX Right 11/2016 COLONOSCOPY FLX DX W/COLLJ SPEC WHEN PFRMD 08/28/2005 Colonoscopy ECHO TRANSESOPHAG CONGEN PROBE [facility] IMGNG I&R 04/24/2017 Dr. Jony Urrutia: mild global LV systolic dysfxn; LVEF 45%; mild LaE; no clots ECHOCARDIOGRAM 07/31/2016 LVEF 60% ECHOCARDIOGRAM 07/31/2016 LVEF 60%; trivial MR with stable annuloplasty ring; mild TR EYE SURGERY HX Right 12/2016 HOLTER MONITOR 48 HOUR 04/26/2017 sinus rhythm with AF/flutter, max HR 154 bpm; reported symptoms correlated with AF and atrial flutter INGUINAL HERNIA REPAIR HX Right 1969 KNEE SURGERY HX Left 2006 arthroscopy MITRAL VALVE SURGERY HX 10/04/2000 MV repair; [facility], Dr. Winters MRI CARDIAC W/CONTRAST 08/31/2008 [facility]: LVEF 59%; normal RV, LV; no evidence for [facility] MYRINGOTOMY Right PROSTATE BIOPSY 12/2020 [facility]PR RETINAL DTCHMNT INJECTION AIR/OTHER GAS Left 01/2016 also had right eye retina tacked down at same time SEED IMPLANT 06/2009 prostate STRESS TEST EXERCISE-NUCLEAR 06/16/2008 TRURL ELECTROSURG RESCJ PROSTATE BLEED COMPLETE 10/2013 ALLERGIES Hydrocodone, Oxycodone, and Percocet [Oxycodone-Acetaminophen] MEDICATIONS buPROPion XL (WELLBUTRIN XL) 300 mg 24 hr tablet Take 1 tablet by mouth once daily. XARELTO 20 mg tablet Tadalafil (CIALIS) 20 mg tablet Take 1 tablet by mouth as needed. Take 1-2 hours before sexual activity. coenzyme Q10 (COENZYME Q-10) 100 mg cap capsule Take 100 mg by mouth twice daily. ZINC ACETATE ORAL Take by mouth. triamcinolone acetonide (NASACORT NASAL) Use in the nose once daily. atorvastatin (LIPITOR) 40 mg tablet Take 40 mg by mouth once daily. losartan (COZAAR) 25 mg tablet Take 50 mg by mouth once daily. BIOTIN ORAL Take 5,000 mcg by mouth once daily. MULTIVITAMIN TAB Take one(1) tablet by mouth daily. apixaban (ELIQUIS) 5 mg tab(s) Take 1 tablet by mouth two times a day. (Patient not taking: Reported on 03/30/2024) FAMILY HISTORY Problem Relation Age of Onset other (afib) Sister ablation Coronary Artery Disease Brother had slight heart attack, ? intracoronary stent other (afib) Brother ablation other (sleep apnea) Brother Heart disease Father CABG Coronary Artery Disease Father other (heart attack) Paternal Grandfather Diabetes Mother Alzheimer's Disease Mother late 70s Social History Tobacco Use Smoking status: Former Current packs/day: 0.00 Types: Cigarettes, Pipe Start date: 1968 Quit date: 1974 Years since quittin.0 Smokeless tobacco: Never Tobacco comments: very light, social smoking; also smoked a pipe Vaping Use Vaping status: Never Used Substance Use Topics Alcohol use: Yes Alcohol/week: 7.0 standard drinks of alcohol Types: 7 Glasses of Wine (5oz) per week Comment: glass of red wine with dinner daily Drug use: No BP 142/84 Pulse 120 Temp 36.7 C (98.1 F) (Tympanic) Resp 18 Wt 67.6 kg (149 lb 0.5 oz) SpO2 98% BMI 22.83 kg/m Review of Systems Constitutional: Negative for chills, fever and malaise/fatigue. HENT: Positive for sore throat. Negative for congestion, ear discharge, ear pain and sinus pain. Eyes: Negative for blurred vision, pain, discharge and redness. Respiratory: Positive for cough. Negative for hemoptysis, sputum production, shortness of breath, wheezing and stridor. Cardiovascular: Positive for palpitations. Negative for chest pain. Gastrointestinal: Negative for abdominal pain, diarrhea, nausea and vomiting. Musculoskeletal: Negative for myalgias. Skin: Negative for itching and rash. Neurological: Negative for dizziness and headaches. Objective Physical Exam Constitutional: General: He is not in acute distress. Appearance: He is not diaphoretic. HENT: Head: Normocephalic. Jaw: No trismus, tenderness, swelling or pain on movement. Mouth/Throat: Mouth: Mucous membranes are moist. Pharynx: Oropharynx is clear. Uvula midline. No pharyngeal swelling, oropharyngeal exudate, posterior oropharyngeal erythema or uvula swelling. Eyes: Conjunctiva/sclera: Conjunctivae normal. Pupils: Pupils are equal, round, and reactive to light. Cardiovascular: Rate and Rhythm: Regular rhythm. Tachycardia present. Heart sounds: Normal heart sounds. Pulmonary: Effort: Pulmonary effort is normal. No tachypnea, accessory muscle usage or respiratory distress. Breath sounds: Normal breath sounds. No stridor. No wheezing, rhonchi or rales. Musculoskeletal: Cervical back: Normal range of motion and neck supple. No edema, erythema, rigidity or tenderness. No pain with movement. Normal range of motion. Lymphadenopathy: Cervical: No cervical adenopathy. Skin: General: Skin is warm and dry. Neurological: Mental Status: He is alert and oriented to person, place, and time. ASSESSMENT/PLAN: 1. Tachycardia - ICD9: 785.0, ICD10: R00.0 On reevaluation patient's heart rates low 120s. With persistent tachycardia and history of A-fib needing cardioversion referred patient to ED. Will be seen at [facility] Gomez Wang APRN.HOME HEALTH CLINICIAN documented in this encounter [facility] 02-17-2024 History of Present illness Narrative Images from the original note were not included. Ryley Mckeon is a 78 year old male here for a Medicare wellness visit. Medicare Health Risk Assessment General Health Very good Exercise: Minutes/Day 40 min Exercise: Days/Week 3 days Alcohol: Daily Use 2-3 times a week Alcohol: Drinks/Day 1 or 2 Alcohol: 6 or more drinks Never Feel off balance No Concerns: Teeth/Dentures No Concerns: Sexual function No Troubled by feelings None of the above Frequency: Eating healthy diet Nearly every day ADLs requiring help None of the above Safety precautions in home/vehicle Yes Smoke, vape, chews tobacco No Difficulty hearing No Difficulty seeing No Current Providers Specialists: I have reviewed specialist-related care of the patient in the medical record. Opthalmology: Bennett Braga / Naeem Steven. Dr Broderick in the past. Retinal detachment repaired in the past. S/P cataract surgery. Small blind spot. Dentist Smith Nelson, [facility], thinking about seeing F cardiology. Due for TTE for monitoring of MV repair 2000 Dr. Winters. No curreni CV complaints. History of prostate cancer s/p seed implants, wondering about his testosterone levels. 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 Medical/Family history review Reviewed and updated problem list, medical/surgical/family/social history, medications, and allergies. Opioid use review Opioid Medications (last 90 days) No data to display Anxiety/Depression screening GARFIELD-7 Score: 0 . Recommendation: no further intervention at this time Cognitive screening Mini Cog Score: 5 Cognitive screening reviewed and No further action needed (score 3-5). Functional Observation Was the patient's Timed Up & Go test unsteady or >= 12 seconds? No Advance Care Planning Surrogate decision maker and/or advance care plan documented Measurements BP 123/78 Pulse 75 Resp 16 Ht 172.1 cm (5' 7.75) Wt 68.6 kg (151 lb 3.8 oz) BMI 23.17 kg/m Vision Screening: Right: Left: Both: Latest Ref Rng 02/14/2024 Protein, Total 6.3 - 8.0 g/dL 6.1 (L) Albumin 3.9 - 4.9 g/dL 4.4 Calcium 8.5 - 10.2 mg/dL 9.1 Bilirubin, Total 0.2 - 1.3 mg/dL 0.3 Alkaline Phosphatase 38 - 113 U/L 95 AST 14 - 40 U/L 29 ALT 10 - 54 U/L 32 Glucose 74 - 99 mg/dL 110 (H) BUN 9 - 24 mg/dL 15 Creatinine 0.73 - 1.22 mg/dL 0.90 Sodium 136 - 144 mmol/L 142 Potassium 3.7 - 5.1 mmol/L 4.2 Chloride 98 - 107 mmol/L 103 CO2 22 - 30 mmol/L 26 Anion Gap 8 - 15 mmol/L 13 eGFR >=60 mL/min/1.73m 89 WBC 3.70 - 11.00 k/uL 6.41 RBC 4.20 - 6.00 m/uL 4.79 Hemoglobin 13.0 - 17.0 g/dL 14.7 Hematocrit 39.0 - 51.0 % 43.5 MCV 80.0 - 100.0 fL 90.8 MCH 26.0 - 34.0 pg 30.7 MCHC 30.5 - 36.0 g/dL 33.8 RDW-CV 11.5 - 15.0 % 13.1 Platelet Count 150 - 400 k/uL 293 MPV 9.0 - 12.7 fL 8.4 (L) Absolute nRBC <0.01 k/uL <0.01 Hemoglobin A1C 4.3 - 5.6 % 5.3 Estimated Average Glucose mg/dL 105 Legend: (L) Low (H) High Assessment/Plan Medicare annual wellness visit, subsequent (Z00.00) - Counseled on healthy diet and regular exercise - Fall avoidance information provided - Personalized prevention plan provided documented in this encounter [facility] 02-17-2024 Instructions Josefa Rolle APRN.CNS - 02/17/2024 9:26 AM EST Screening schedule The following prevention plan is recommended: BP Controlled (<130/80) Never done WHAT YOU CAN DO TO PREVENT FALLS Many falls can be prevented. By making some changes, you can lower your chances of falling. Four things YOU can do to prevent falls for you* and your caregiver 1. Begin a regular exercise program Exercise is one of the most important ways to lower your chances of falling. It makes you stronger and helps you feel better. Exercises that improve balance and coordination (like Rolly Chi) are the most helpful. Lack of exercise leads to weakness and increases your chances of falling. Ask your doctor or health care provider about the best type of exercise program for you. 2. Have your health care provider review your medicines Have your doctor or pharmacist review all the medicines you take, even [id number] medicines. As you get older, the way medicines work in your body can change. Some medicines, or combinations of medicines, can make you sleepy or dizzy and can cause you to fall. 3. Have your vision checked Have your eyes checked by an eye doctor at least once a year. You may be wearing the wrong glasses or have a condition like glaucoma or cataracts that limits your vision. Poor vision can increase your chances of falling. 4. Make your home safer About half of all falls happen at home. To make your home safer: Remove things you can trip over (like papers, books, clothes, and shoes) from stairs and places where you walk. Remove small throw rugs or use double-sided tape to keep the rugs from slipping. Keep items you use often in cabinets you can reach easily without using a step stool. Have grab bars put in next to your toilet and in the tub or shower. Use non-slip mats in the bathtub and on shower floors. Improve the lighting in your home. As you get older, you need brighter lights to see well. Hang light-weight curtains or shades to reduce glare. Have handrails and lights put in on all staircases. Wear shoes both inside and outside the house. Avoid going barefoot or wearing slippers. For more information, contact: Centers for Disease Control and Prevention www.cdc.gov/injury * This information may not apply if you have certain medical conditions. documented in this encounter [facility] 10-21-2023 History of Present illness Narrative Radiation Oncology - Follow Up Note This is a virtual visit using a HIPAA compliant video platform. It required patient-provider interaction for the medical decision making as documented below. The patient consented to the virtual Visit PATIENT NAME: Ryley Mckeon PATIENT DIAGNOSIS: 78 yo gentleman with hx of adenocarcinoma of the prostate, initial PSA of 7.27 ng/mL, [place] of 3+4=7. Status post I-125 seed implantation on 06/15/2021. INTERVAL HISTORY: Ryley presents, via virtual visit for routine surveillance of prostate cancer follow-up 6 months after having last been seen. He continues to experience no residual urinary effects of his radiation. Able to maintain minor erection wit medication. No new health issues since his last appointment PSA HISTORY: PSA (ng/mL) Date Value 08/10/2023 0.37 05/13/2023 0.41 02/26/2023 0.43 08/04/2022 0.55 04/25/2021 6.63 ALLERGIES Allergen Reactions Hydrocodone Vomiting Oxycodone Vomiting Percocet [Oxycodone* GI Upset Tadalafil (CIALIS) 20 mg tablet Take 1 tablet by mouth as needed. Take 1-2 hours before sexual activity. apixaban (ELIQUIS) 5 mg tab(s) Take 1 tablet by mouth two times a day. buPROPion XL (WELLBUTRIN XL) 300 mg 24 hr tablet Take 1 tablet by mouth once daily. coenzyme Q10 (COENZYME Q-10) 100 mg cap capsule Take 100 mg by mouth twice daily. ZINC ACETATE ORAL Take by mouth. triamcinolone acetonide (NASACORT NASAL) Use in the nose once daily. atorvastatin (LIPITOR) 40 mg tablet Take 40 mg by mouth once daily. losartan (COZAAR) 25 mg tablet Take 50 mg by mouth once daily. BIOTIN ORAL Take 5,000 mcg by mouth once daily. MULTIVITAMIN TAB Take one(1) tablet by mouth daily. REVIEW OF SYSTEMS: D/N = 5--09/06 Hematuria: No Dysuria: No Incontinence: No Urgency: none Catheter use: No Medications to aid urination: none - AUA Questionnaire (symptoms within the past 1 month) Incomplete emptyin (not at all) Frequency (within 2 hours): 0 (not at all) Intermittency: 0 (not at all) Urgency: 0 (not at all) Weak stream: 0 (not at all) Strainin (not at all) Nocturia: 1x per night - Total AUA Score: 1 Bowel movement frequency: 1-2/day Bowel movement quality: normal Blood per rectum: No Last colonoscopy: 2015 Sexual activity: Able to maintain minor erections with medications Androgen deprivation: Never. KPS: 90 General Appearance: Alert and oriented. No acute distress. Rectal exam is deferred. ASSESSMENT Ryley continues to experience nocturia 1 x no residual urinary effects of his radiation. His PSA continues to decrease nicely. I spent a total of 20 minutes on the date of the service which included . and discussion of his ongoing post radiation follow up. We reviewed current medications for update. We discussed exercise/diet recommendations for increased aerobic fitness and weight control. He does not smoke cigarettes and does moderately drink alcohol. All questions answered at this appointment. Parts of Progress Note were copied from Progress note dated but alvarez elements reviewed, confirmed, and\or updated by me (Camacho Juarez CNP/GENEVEIVE ) on October 21, 2023 PLAN: F/U in Apr 2024 with a PSA Signed by:Haja Juarez APRN.CNP cc: Johnnie Ross [address] [place] [address] No referring provider defined for this encounter. documented in this encounter [facility] 05-10-2024 History of Present illness Narrative This note was created using [employer]. Subjective Ryley Mckeon is a 78 year old male. Patient presents with: F/U 6 months: Labs prior SUBJECTIVE: Ryley Mckeon is a 78 year old year old gentleman here today for 6 month follow up appointment for review of medical conditions. SKs--on left upper arm noted to be a little bigger. Has multiple on torso. Has been to Dr. Hu before. PAST MEDICAL HISTORY Diagnosis Date At risk for stroke [id number] = 2 (HTN, age > 65 yrs) Atrial flutter (HCC) probably atypical form; symptomatic Bradycardia sinus bradycardia Coronary artery disease involving [place] coronary artery of [place] heart without angina pectoris Dr Nelson--[facility] Dyslipidemia Hemorrhage of gastrointestinal tract, unspecified HTN (hypertension) Internal hemorrhoids without mention of complication detention (current) use of anticoagulants apixaban (Eliquis); indication: stroke prevention AF Macular hole of right eye Mitral valve regurgitation myxomatous mitral valve regurgitation, s/p MV repair 2000 Persistent atrial fibrillation (HCC) symptomatic; also has paroxysmal episodes; medical therapy very limited by sinus bradycardia PMH - PAST MEDICAL HISTORY OF blood in stool Premature ventricular contractions (PVCs) (VPCs) symptomatic; evaluated by Dr. Langston ([facility]) in 2008, considered to be benign PVCs; improved with beta-michell but developed fatigue, then treated with verapamil Prostate cancer (HCC) followed by Dr. Thomas Retinal detachment, left 01/2016 Sinus bradycardia Sinus node dysfunction (HCC) probably in part due to recurrent atrial arrhythmias Unspecified constipation Current Outpatient Medications Medication Sig Tadalafil (CIALIS) 20 mg tablet Take 1 tablet by mouth as needed. Take 1-2 hours before sexual activity. apixaban (ELIQUIS) 5 mg tab(s) Take 1 tablet by mouth two times a day. buPROPion XL (WELLBUTRIN XL) 300 mg 24 hr tablet Take 1 tablet by mouth once daily. coenzyme Q10 (COENZYME Q-10) 100 mg cap capsule Take 100 mg by mouth twice daily. ZINC ACETATE ORAL Take by mouth. triamcinolone acetonide (NASACORT NASAL) Use in the nose once daily. atorvastatin (LIPITOR) 40 mg tablet Take 40 mg by mouth once daily. losartan (COZAAR) 25 mg tablet Take 50 mg by mouth once daily. BIOTIN ORAL Take 5,000 mcg by mouth once daily. MULTIVITAMIN TAB Take one(1) tablet by mouth daily. No current facility-administered medications for this visit. Review of Systems Objective BP 146/78 Pulse (!) 52 Temp (!) 35.8 C (96.5 F) Resp 18 Wt 68.6 kg (151 lb 4.8 oz) SpO2 99% BMI 23.70 kg/m Last 5 Encounter Wt Readings: Date: Wt: 08/16/2023 68.6 kg (151 lb 4.8 oz) 05/13/2023 69.8 kg (153 lb 12.8 oz) 02/26/2023 68 kg (150 lb) 01/15/2023 68 kg (150 lb) 08/21/2022 68.9 kg (152 lb) No waist measurement recorded Estimated body mass index is 23.7 kg/m as calculated from the following: Height as of 01/15/23: 170.2 cm (5' 7). Weight as of this encounter: 68.6 kg (151 lb 4.8 oz). Last 5 Encounter BP Readings: Date: BP: 08/16/2023 146/78 05/13/2023 152/73 02/26/2023 132/77 01/15/2023 124/76 08/21/2022 122/66 Physical Exam Latest Ref Rng 02/17/2022 08/04/2022 08/20/2022 02/26/2023 05/13/2023 08/10/2023 Protein, Total 6.3 - 8.0 g/dL 6.4 6.4 6.5 6.2 (L) Albumin 3.9 - 4.9 g/dL 4.4 4.4 4.2 4.2 Calcium 8.5 - 10.2 mg/dL 9.5 9.4 9.6 9.1 Bilirubin, Total 0.2 - 1.3 mg/dL 0.9 0.8 0.4 0.6 Alkaline Phosphatase 38 - 113 U/L 87 78 95 95 AST 14 - 40 U/L 33 28 24 25 ALT 10 - 54 U/L 32 29 27 26 Glucose 74 - 99 mg/dL 110 (H) 119 (H) 101 (H) 105 (H) BUN 9 - 24 mg/dL 14 13 14 12 Creatinine 0.73 - 1.22 mg/dL 0.83 0.83 0.75 0.83 Sodium 136 - 144 mmol/L 141 141 142 143 Potassium 3.7 - 5.1 mmol/L 4.2 3.9 5.0 4.4 Chloride 97 - 105 mmol/L 105 104 106 (H) 105 CO2 22 - 30 mmol/L 24 26 27 23 Anion Gap 9 - 18 mmol/L 12 11 9 15 eGFR >=60 mL/min/1.73m 92 91 94 91 WBC 3.70 - 11.00 k/uL 7.46 5.82 6.60 RBC 4.20 - 6.00 m/uL 5.05 4.90 4.92 Hemoglobin 13.0 - 17.0 g/dL 15.5 15.1 15.0 Hematocrit 39.0 - 51.0 % 47.4 46.2 45.0 MCV 80.0 - 100.0 fL 93.9 94.3 91.5 MCH 26.0 - 34.0 pg 30.7 30.8 30.5 MCHC 30.5 - 36.0 g/dL 32.7 32.7 33.3 RDW-CV 11.5 - 15.0 % 13.2 13.0 12.9 Platelet Count 150 - 400 k/uL 277 301 292 MPV 9.0 - 12.7 fL 9.0 8.9 (L) 9.1 Absolute nRBC <0.01 k/uL <0.01 <0.01 <0.01 Cholesterol, Total <200 mg/dL 150 157 143 Triglyceride <150 mg/dL 54 54 59 HDL Cholesterol >39 mg/dL 57 57 49 Non HDL Cholesterol <130 mg/dL 93 100 94 Fasting Time hrs 12 12 12 VLDL Cholesterol <30 mg/dL 11 11 12 TC:HDL Ratio <5.10 2.63 2.75 2.92 LDL Cholesterol <100 mg/dL 82 89 82 LDL:HDL Ratio <2.54 1.44 1.56 1.67 Hemoglobin A1C 4.3 - 5.6 % 5.4 5.4 5.5 5.5 Estimated Average Glucose mg/dL 108 108 111 111 PSA <2.60 ng/mL 0.55 0.43 0.41 0.37 Legend: (H) High (L) Low Assessment and Plan Encounter Diagnosis ICD-10-CM 1. IFG (impaired fasting glucose) R73.01 HEMOGLOBIN A1C Still just UFG, not DM. Stays active and eats healthy diet. 2. Dyslipidemia E78.5 Doing well on Lipitor. Stay on same dose. Cardiology prescribes 3. Sinus node dysfunction (HCC) I49.5 Follows with [facility]. Not needing pacemaker 4. Persistent atrial fibrillation (HCC) I48.19 Follows with [facility]. Stable on meds 5. Malignant neoplasm of prostate (HCC) C61 Follows with urologist 6. Encounter for long-term current use of medication Z79.899 COMPREHENSIVE METABOLIC PANEL COMPLETE BLOOD COUNT Above issues addressed with patient. Patient involved in shared decision making for management of medical issues. History and medications reviewed. Epic updated as needed Refills and/or prescriptions taken care of and meds adjusted as indicated after reviewed history, exam and labs. Health Maintenance reviewed. Updated record and/or ordered tests as recorded. Encouraged on efforts at healthy diet and regular exercise and adequate sleep. Johnnie Ross MD documented in this encounter [facility] 08-12-2023 Telephone encounter Note notified. Margareth Jarrett LPN [facility] 08-12-2023 Miscellaneous Notes notified. Margareth Jarrett LPN Looks like this may have been addressed in Michelle' telephone encounter though not sure what the mention about not being able to transfer something if gets done through [facility] instead of the pharmacy. May get in [facility] system or pharmacy per patient (and 's) preference. Okay to get Booster for Covid19 for travel since last vaccine was over 4 months ago. calling to check on getting a COVID booster. Last booster was 02-06-24. They will be traveling, but not out of the country. They get this thru their pharmacy. Please advise if you recommend they get this. Margareth Jarrett LPN documented in this encounter [facility] 08-12-2023 Telephone encounter Note Looks like this may have been addressed in Michelle' telephone encounter though not sure what the mention about not being able to transfer something if gets done through [facility] instead of the pharmacy. May get in [facility] system or pharmacy per patient (and 's) preference. Okay to get Booster for Covid19 for travel since last vaccine was over 4 months ago. [facility] Work Phone: 08-12-2023 Telephone encounter Note calling to check on getting a COVID booster. Last booster was 02-06-24. They will be traveling, but not out of the country. They get this thru their pharmacy. Please advise if you recommend they get this. Margareth Jarrett LPN [facility] 08-09-2023 Telephone encounter Note Spoke with pt and information listed below given. Pt verbalizes understanding. Margareth Jarrett LPN [facility] 08-09-2023 Miscellaneous Notes Spoke with pt and information listed below given. Pt verbalizes understanding. Margareth Jarrett LPN Left message to call office. 08/09/2023 8:41 AM Orders in, please let him know calling for pt. Pt coming in for an apt on 08/16/23 and they are checking to see if he needs fasting lab work done. Please advise . Margareth Jarrett LPN documented in this encounter [facility] 08-09-2023 Telephone encounter Note Left message to call office. 08/09/2023 8:41 AM [facility] 08-09-2023 Telephone encounter Note Orders in, please let him know [facility] 08-08-2023 Telephone encounter Note calling for pt. Pt coming in for an apt on 08/16/23 and they are checking to see if he needs fasting lab work done. Please advise . Margareth Jarrett LPN [facility] 07-11-2023 Miscellaneous Notes Patient's notified of providers message and verbalized understanding. Okay to get RSV vaccine. No appointment or approval from me required. called to check and see if okay for pt to get an RSV vaccine. Pt and are going to [place] and do not want to wait till next apt to discuss. Willing to do a virtual apt if needed. and pt aware they need to get thru the pharmacy because they are Medicare. Please advise . Margareth Jarrett LPN documented in this encounter [facility] 05-13-2023 History of Present illness Narrative Images from the original note were not included. [facility] New Patient Evaluation PATIENT NAME: Ryley Mckeon DATE OF SERVICE: May 10, 2023 CONSULTING PROVIDER: Josefa Rolle [address] [facility] [address] REASON FOR CONSULT: Josefa Rolle sends the patient for an opinion about LISSETTE. My findings and recommendations will be transmitted electronically via shared medical record to the consulting provider. HPI: Ryley Mckeon is a 78 year old male. Sleep-related history: LISSETTE, not on PAP He was diagnosed with LISSETTE more than 15 yrs ago, most recent PSG was in 2018 at [facility], AHI 25.3. He never used PAP therapy, didn't think he could tolerate it. He had a difficult time with the split night study, didn't tolerate the mask. He doesn't have any sleep concerns. SLEEP-WAKE SCHEDULE Bedtime: 11 PM. He does not have a hard time falling asleep. Wake time: 6 AM, without an alarm. After falling asleep: he wakes up 1 time(s) per night, because of the need to urinate. On weekends, he maintains the same sleep schedule. Average total sleep time (in a 24 hour period): 7 hours. SLEEP-RELATED DETAILS Preferred sleep position: side Breathing disturbances and other behaviors during sleep: snoring. Bruxism: No GERD or aspiration: Yes Waking up with heart pounding or racing: No Anxiety or rumination: No He does not report having an urge to move the legs in the evening (when resting) that is accompanied or caused by uncomfortable and/or unpleasant sensations in the legs. He has not been told that he has leg kicking during sleep. He denies any history of parasomnias. Daytime sleepiness is not a problem. 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 He does not have difficulty with memory or concentration. He denies falling asleep or dozing off when driving. He does not take naps. He does drink 1-2 caffeinated beverages per day. There has not been a recent change in weight. Patient Questionnaires Sleep Scores Sleep Questions 05/13/2023 Reason for visit: Unsure Average hours slept in 24 hours: 7 Accidents or near accidents due to drowsy drivin [place] Sleepiness Scale 05/13/2023 Score 1 (No daytime sleepiness) PROMIS CAT Sleep Disturbance 05/13/2023 PROMIS Sleep Disturbance T-Score 37 (within normal limits) PROMIS Sleep Disturbance Percentile 90% PHQ-9 06/25/2021 05/13/2023 Score 1 0 PROMIS Global Health - (T-Scores - the mean of general population = 50. Five points is a clinically meaningful difference.) 01/15/2023 05/13/2023 05/13/2023 Physical T-Score 50.8 61.9 61.9 Mental T-Score 53.3 53.3 53.3 PAST TREATMENTS: None PRIOR SLEEP STUDIES: A split night polysomnogram performed on 07/30/2017 revealed an AHI of 25.3, supine index of 82 REM index of 41, PLM index of 0, and the oxygen saturation was below 88% for 2 % of the study. During the PAP titration portion of the study, had suboptimal titration--recommendation was CPAP 9 cmH2O and then a full night titration. PAST MEDICAL HISTORY Diagnosis Date At risk for stroke [id number] = 2 (HTN, age > 65 yrs) Atrial flutter (HCC) probably atypical form; symptomatic Bradycardia sinus bradycardia Coronary artery disease involving [place] coronary artery of [place] heart without angina pectoris Dr Nelson[facility] Dyslipidemia Hemorrhage of gastrointestinal tract, unspecified HTN (hypertension) Internal hemorrhoids without mention of complication detention (current) use of anticoagulants apixaban (Eliquis); indication: stroke prevention AF Macular hole of right eye Mitral valve regurgitation myxomatous mitral valve regurgitation, s/p MV repair 2000 Persistent atrial fibrillation (HCC) symptomatic; also has paroxysmal episodes; medical therapy very limited by sinus bradycardia PMH - PAST MEDICAL HISTORY OF blood in stool Premature ventricular contractions (PVCs) (VPCs) symptomatic; evaluated by Dr. Langston ([facility]) in 2008, considered to be benign PVCs; improved with beta-michell but developed fatigue, then treated with verapamil Prostate cancer (HCC) followed by Dr. Thomas Retinal detachment, left 01/2016 Sinus bradycardia Sinus node dysfunction (HCC) probably in part due to recurrent atrial arrhythmias Unspecified constipation PAST SURGICAL HISTORY Procedure Laterality Date CARDIAC CATH 06/23/2008 reportedly minimal CAD CARDIAC CATH 06/23/2008 LVEF 55%; LAD 10% prox, D1 20-30% ostial, LCX normal, RCA 10-20% prox, right AV branch 10-20%, right PL branch 10-20% CARDIAC STRESS TEST 06/16/2008 no stress-induced myocardial ischemia CARDIOVERSION ELECTIVE ARRHYTHMIA INTERNAL SPX 04/24/2017 CARDIOVERSION ELECTIVE ARRHYTHMIA INTERNAL SPX 04/30/2017 CATARACT EXTRACTION HX Left 10/2016 CATARACT EXTRACTION HX Right 11/2016 COLONOSCOPY FLX DX W/COLLJ SPEC WHEN PFRMD 08/28/2005 Colonoscopy ECHO TRANSESOPHAG CONGEN PROBE [facility] I&R 04/24/2017 Dr. Jony Urrutia: mild global LV systolic dysfxn; LVEF 45%; mild LaE; no clots ECHOCARDIOGRAM 07/31/2016 LVEF 60% ECHOCARDIOGRAM 07/31/2016 LVEF 60%; trivial MR with stable annuloplasty ring; mild TR EYE SURGERY HX Right 12/2016 HOLTER MONITOR 48 HOUR 04/26/2017 sinus rhythm with AF/flutter, max HR 154 bpm; reported symptoms correlated with AF and atrial flutter INGUINAL HERNIA REPAIR HX Right 1969 KNEE SURGERY HX Left 2006 arthroscopy MITRAL VALVE SURGERY HX 10/04/2000 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 At Risk for Stroke Persistent Atrial Fibrillation (Hcc) Bradycardia Premature Ventricular Contractions (Pvcs) (Vpcs) Atrial Flutter (Hcc) Sinus Node Dysfunction (Hcc) Malignant Neoplasm of Prostate (Hcc) Anxiety and Depression Lissette (Obstructive Sleep Apnea) Cad (Coronary Artery Disease) Htn (Hypertension) Dyslipidemia Tricuspid Insufficiency Systolic Dysfunction Allergies As of Date: 05/13/2023 Allergen Noted Reaction HYDROCODONE 02/11/2018 Vomiting OXYCODONE 02/11/2018 Vomiting PERCOCET [OXYCODONE-ACETAMINOPHEN] 8 GI Upset Fully Assessed 05/13/2023 CURRENT MEDICATIONS: Tadalafil (CIALIS) 20 mg tablet Take 1 tablet by mouth as needed. Take 1-2 hours before sexual activity. apixaban (ELIQUIS) 5 mg tab(s) Take 1 tablet by mouth two times a day. buPROPion XL (WELLBUTRIN XL) 300 mg 24 hr tablet Take 1 tablet by mouth once daily. coenzyme Q10 (COENZYME Q-10) 100 mg cap capsule Take 100 mg by mouth twice daily. ZINC ACETATE ORAL Take by mouth. triamcinolone acetonide (NASACORT NASAL) Use in the nose once daily. atorvastatin (LIPITOR) 40 mg tablet Take 40 mg by mouth once daily. losartan (COZAAR) 25 mg tablet Take 50 mg by mouth once daily. BIOTIN ORAL Take 5,000 mcg by mouth once daily. MULTIVITAMIN TAB Take one(1) tablet by mouth daily. Review of Systems Constitutional: Negative for fatigue and recent unintentional weight change. HENT: Negative for congestion. Cardiovascular: Negative for palpitations. Gastrointestinal: Positive for heartburn. Neurological: Negative for headaches. SOCIAL HISTORY: Social History Tobacco Use Smoking status: Former Types: Cigarettes, Pipe Start date: 1968 Quit date: 1974 Years since quittin.1 Smokeless tobacco: Never Tobacco comments: very light, social smoking; also smoked a pipe Vaping Use Vaping Use: Never used Substance Use Topics Alcohol use: Yes Alcohol/week: 7.0 standard drinks of alcohol Types: 7 Glasses of Wine (5oz) per week Comment: glass of red wine with dinner daily Drug use: No FAMILY HISTORY: FAMILY HISTORY Problem Relation Age of Onset other (afib) Sister ablation Coronary Artery Disease Brother had slight heart attack, ? intracoronary stent other (afib) Brother ablation other (sleep apnea) Brother Heart disease Father CABG Coronary Artery Disease Father other (heart attack) Paternal Grandfather Diabetes Mother Alzheimer's Disease Mother late 70s There is a family history of: Sleep apnea. Relative: brother PHYSICAL EXAMINATION: Vital Signs: BP 152/73 Pulse 65 Resp 16 Wt 69.8 kg (153 lb 12.8 oz) SpO2 98% BMI 24.09 kg/m PHYSICAL EXAM: General appearance: pleasant, NAD Mental status: alert and oriented, able to provide own history Constitutional: WNL Skin: No visible rashes on exposed skin Neuro: No focal deficits observed, no tremors ENT : Posterior airspace: [place] tongue position 2, retrognathia absent. Overbite present. High arched palate present. Tongue scalloping/ridging present. RRR IMPRESSION/PLAN: G47.33 LISSETTE (obstructive sleep apnea) Ryley Mckeon is a 78 year old male with moderate LISSETTE per 2018 split night study. He never tried PAP therapy since he had a hard time tolerating mask during the study. PMH of atrial fibrillation, HTN, CAD, MVP, dyslipidemia, depression, anxiety, jail use of anticoagulants. We discussed his 2018 split night study results. We discussed LISSETTE, risks of untreated moderate to severe LISSETTE including but not limited to OR/CVA/afib/HF. Discussed treatment options including OAT, PAP, hypoglossal nerve stimulation (Inspire). Not a good candidate for OAT since moderate to severe. Would need to update sleep study and try PAP before being considered for Inspire. He would consider a home sleep study. He plans to discuss with his . He'll send me a mychart msg. After HSAT would Rx autoCPAP. Shannon De La Rosa APRN.CNP I spent a total of 46 minutes on the date of the service which included preparing to see the patient, [id number] patient care, completing clinical documentation, obtaining and/or reviewing separately obtained history, performing a medically appropriate examination, and counseling and educating the patient/family/caregiver. documented in this encounter [facility] 05-13-2023 History of Present illness Narrative [facility] HISTORY OF PRESENT ILLNESS May 13, 2023 78 year old, male 75, M, [place], [place], pt of eAK 03/2020 prostate bx, Annette 3+3, was on PSA kaylyn to 7.27 on 09/2020: MRI 0.6 cm P4 lesion, L mid PZ, no EPE, no LA or bone mets, 46 cc 01/26: repeat biopsy Gl 3+4, T1c, 4/4 cores positive, GG2, 95% So upgrading of the bx, now Gr 2 rather than 1, also psa increased 02/26: Decipher score 0.60, intermediate risk PMH: Afib and flutter on Eliqiuis, HTN, HLD, BPH, anxiety/depression SH: TURP, mult cardiac surgeries and caths, mitral valve repair 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, 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 BMI 23, overall in good health Voids well, has some rectal discomfort Good erections Reg turp, has defect on MRI but not very impressive Plan: Probably needs to consider intervention He is interested in focal Rx, I will review this with Ki Jasso Other options include RT options All options were reviewed including surgery, RT options, and Regarding surgery: reasonable candidate but 75 and on AC, so probably best with other Rx Regarding RT option: good candidate for seeds, EBRT, or SBRT and we discussed this as well Regarding : given progression of stage and increase of PSA, prob should move towards active Rx Focal therapy may also be an option and we will explore this first Top consider focal therapy may need a systematic biopsy to ensure no disease anywhere else Per [place], good candidate but would need random bx to prove not in other areas too I called pt and now really considering seeds, will see [facility], idea of focal Rx he is not so interested in this now Status post I-125 seed implantation on 06/15/2021. 03/29: psa 0.96, doing well, we see 12 mo wth psa 02/28: psa 0.43, sp seeds Doing well today, no recent health changes. No urinary symptoms including gross hematuria or dysuria. The above represents a brief summary of the patient's history as of the last clinic visit or hospitalization. Interim history: Recent radiographic studies: None recent Recent labs: 05/13/2023 PSA: in process (previously 0.43 in 02/2023) Clinical status: stable, no change Voiding status and ROS: voids well, no gross hematuria Reason for today's visit: CAP f/u ASSESSMENT & PLAN I saw and examined in detail, and discussed with PO, and agree with essential components of Hx, PE and A/P. Briefly, This is a 78 year old male who presented today in the clinic for follow up of: prostate cancer s/p seeds in June 2021. PSA stable at 0.43. Patient doing well SOme ED Plan: I spent a total of 25 minutes on the date of the service which included preparing to see the patient, [id number] patient care, completing clinical documentation, and counseling and educating the patient/family/caregiver. Follow today's PSA (not yet resulted) RTC in 12 months with Psa prior For ED, disucssed trial Amisha, he will consider Kenneth Lin MD DATA REVIEW IMAGING N/A LABS PSA (ng/mL) Date Value 02/26/2023 0.43 08/04/2022 0.55 02/17/2022 0.97 12/16/2021 1.28 04/25/2021 6.63 PAST MEDICAL HISTORY/COMORBIDITIES PAST MEDICAL HISTORY Diagnosis Date At risk for stroke [id number] = 2 (HTN, age > 65 yrs) Atrial flutter (HCC) probably atypical form; symptomatic Bradycardia sinus bradycardia Coronary artery disease involving [place] coronary artery of [place] heart without angina pectoris Dr Nelson--[place] [facility] Dyslipidemia Hemorrhage of gastrointestinal tract, unspecified HTN (hypertension) Internal hemorrhoids without mention of complication 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 Langston ([facility]) in 2008, considered to be benign PVCs; improved with beta-michell but developed fatigue, then treated with verapamil Prostate cancer (HCC) followed by Dr. Thomas Retinal detachment, left 01/2016 Sinus bradycardia Sinus node dysfunction (HCC) probably in part due to recurrent atrial arrhythmias Unspecified constipation PAST SURGICAL HISTORY Procedure Laterality Date CARDIAC CATH 06/23/2008 reportedly minimal CAD CARDIAC CATH 06/23/2008 LVEF 55%; LAD 10% prox, D1 20-30% ostial, LCX normal, RCA 10-20% prox, right AV branch 10-20%, right PL branch 10-20% CARDIAC STRESS TEST 06/16/2008 no stress-induced myocardial ischemia CARDIOVERSION ELECTIVE ARRHYTHMIA INTERNAL SPX 04/24/2017 CARDIOVERSION ELECTIVE ARRHYTHMIA INTERNAL SPX 04/30/2017 CATARACT EXTRACTION HX Left 10/2016 CATARACT EXTRACTION HX Right 11/2016 COLONOSCOPY FLX DX W/COLLJ SPEC WHEN PFRMD 08/28/2005 Colonoscopy ECHO TRANSESOPHAG CONGEN PROBE [facility] I&R 04/24/2017 Dr. Jony Urrutia: mild global LV systolic dysfxn; LVEF 45%; mild LaE; no clots ECHOCARDIOGRAM 07/31/2016 LVEF 60% ECHOCARDIOGRAM 07/31/2016 LVEF 60%; trivial MR with stable annuloplasty ring; mild TR EYE SURGERY HX Right 12/2016 HOLTER MONITOR 48 HOUR 04/26/2017 sinus rhythm with AF/flutter, max HR 154 bpm; reported symptoms correlated with AF and atrial flutter INGUINAL HERNIA REPAIR HX Right 1969 KNEE SURGERY HX Left 2006 arthroscopy MITRAL VALVE SURGERY HX 10/04/2000 [facility]AST [facility]: LVEF 59%; normal RV, LV; no evidence for ARVC MYRINGOTOMY Right PROSTATE BIOPSY 12/2020 RPR RETINAL DTCHMNT INJECTION AIR/OTHER GAS Left 01/2016 also had right eye retina tacked down at same time SEED IMPLANT 06/2009 prostate STRESS TEST EXERCISE-NUCLEAR 06/16/2008 TRURL ELECTROSURG RESCJ PROSTATE BLEED COMPLETE 10/2013 REVIEW OF SYSTEMS CONSTITUTIONAL: No fevers, chills, nightsweats, unintended weight loss GI: No dysphagia/odynophagia, problematic reflux, constipation, diarrhea, changes in stool habits, hematochezia, melena. : No new urinary complaints, including dysuria, gross hematuria or pyuria. INTEGUMENTARY: No new skin changes (rash, new or changing mole, new growth) All other systems were reviewed and are negative. PHYSICAL EXAM General: Well appearing, alert, in no acute distress, well-hydrated, well nourished ENT: Moist mucous membranes. Cardiovascular: Well perfused Respiratory: No respiratory distress Abdomen: Non-distended Skin: Skin color, texture, turgor normal, no suspicious rashes or lesions Neurological: Normal speech. Extremities: Extremities normal. No deformities, edema, or skin discoloration Scribe Attestation: By signing my name below, ILeisa, attest that this documentation has been prepared under the direction and in the presence of Dr. Kenneth Lin MD. Electronically Signed:erasmo Mesa, May 13, 2023 9:46 AM Provider Attestation: Kenneth Pineda MD, personally performed the services described in this documentation. All medical record entries made by the liliamibe were at my direction and in my presence. I have reviewed the chart and discharge instructions (if applicable) and agree that the record reflects my personal performance and is accurate and complete. Kenneth Lin MD May 13, 2023 10:52 AM documented in this encounter [facility] 02-26-2023 History of Present illness Narrative SUBJECTIVE: RSV Vaccine(1 - 1-dose 60+ series) Never done HPI Ryley Mckeon is a 77 year old male. PMH significant for ACTIVE PROBLEM LIST S/P Mitral Valve Repair Mvp (Mitral Valve Prolapse) Correction (Current) Use of Anticoagulants At Risk for Stroke Persistent Atrial Fibrillation (Hcc) Bradycardia Premature Ventricular Contractions (Pvcs) (Vpcs) Atrial Flutter (Hcc) Sinus Node Dysfunction (Hcc) Malignant Neoplasm of Prostate (Hcc) Anxiety and Depression Lissette (Obstructive Sleep Apnea) Cad (Coronary Artery Disease) Htn (Hypertension) Dyslipidemia Tricuspid Insufficiency Systolic Dysfunction Seen by Evangelina Bah January 15, 2023 for emergency department follow-up, general weakness and dizziness. He notes currently feeling well and no recurrence of symptoms. On chronic oral anticoagulation for AF. No bleeding difficulties. Followed by cardiology [facility]. Anxiety and depression: controlled on mediciation, not currently not seeing counselor. LISSETTE: no current treatment Has seen ENT, Dr Riggins. Using Nasacort, no longer snoring is noted. Followed by urologist Dr Kenneth Lin regarding prostate cancer. Last 14 Encounter BP Readings: Date: BP: 02/26/2023 132/77 01/15/2023 124/76 08/21/2022 122/66 05/27/2022 128/70 05/18/2022 138/82 02/20/2022 122/68 07/10/2021 113/74 06/26/2021 122/78 06/15/2021 124/77 06/13/2021 129/71 04/21/2021 144/77 04/12/2021 144/79 12/17/2020 128/70 12/09/2020 144/82 His most recent lipid panels are: Cholesterol, Total (mg/dL) Date Value 08/20/2022 157 02/17/2022 150 05/22/2000 187 HDL Cholesterol (mg/dL) Date Value 08/20/2022 57 02/17/2022 57 05/22/2000 41 LDL Cholesterol (mg/dL) Date Value 08/20/2022 89 02/17/2022 82 05/22/2000 125 Triglyceride (mg/dL) Date Value 08/20/2022 54 02/17/2022 54 05/22/2000 103 was Hemoglobin A1C (%) Date Value 08/20/2022 5.4 02/17/2022 5.4 ) Review of Systems Constitutional: Negative. Objective BP 132/77 Pulse 60 Resp 16 Wt 68 kg (150 lb) BMI 23.49 kg/m Physical Exam Vitals and nursing note reviewed. Constitutional: Appearance: Normal appearance. HENT: Head: Normocephalic and atraumatic. Eyes: Conjunctiva/sclera: Conjunctivae normal. Cardiovascular: Rate and Rhythm: Normal rate and regular rhythm. Heart sounds: Normal heart sounds. Pulmonary: Effort: Pulmonary effort is normal. Breath sounds: Normal breath sounds. Abdominal: General: Bowel sounds are normal. Palpations: Abdomen is soft. Musculoskeletal: Right lower leg: No edema. Left lower leg: No edema. Skin: General: Skin is warm and dry. Neurological: General: No focal deficit present. Mental Status: He is alert and oriented to person, place, and time. ALLERGIES Allergen Reactions Hydrocodone Vomiting Oxycodone Vomiting Percocet [Oxycodone* GI Upset Medication apixaban (ELIQUIS) 5 mg tab(s) Take 1 tablet by mouth two times a day. buPROPion XL (WELLBUTRIN XL) 300 mg 24 hr tablet Take 1 tablet by mouth once daily. buPROPion XL (WELLBUTRIN XL) 300 mg 24 hr tablet Take 1 tablet by mouth once daily. coenzyme Q10 (COENZYME Q-10) 100 mg cap capsule Take 100 mg by mouth twice daily. ZINC ACETATE ORAL Take by mouth. triamcinolone acetonide (NASACORT NASAL) Use in the nose once daily. atorvastatin (LIPITOR) 40 mg tablet Take 40 mg by mouth once daily. losartan (COZAAR) 25 mg tablet Take 50 mg by mouth once daily. BIOTIN ORAL Take 5,000 mcg by mouth once daily. MULTIVITAMIN TAB Take one(1) tablet by mouth daily. 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 Langston ([facility]) in 2008, considered to be benign PVCs; improved with beta-michell but developed fatigue, then treated with verapamil Prostate cancer (HCC) followed by Dr. Thomas Retinal detachment, left 01/2016 Sinus bradycardia Sinus node dysfunction (HCC) probably in part due to recurrent atrial arrhythmias Unspecified constipation Social History Tobacco Use Smoking status: Former Types: Cigarettes, Pipe Start date: 1968 Quit date: 1974 Years since quittin.9 Smokeless tobacco: Never Tobacco comments: very light, social smoking; also smoked a pipe Vaping Use Vaping Use: Never used Substance Use Topics Alcohol use: Yes Alcohol/week: 7.0 standard drinks of alcohol Types: 7 Glasses of Wine (5oz) per week Comment: glass of red wine with dinner daily Drug use: No Component Latest Ref Rng & Units 08/04/2022 08/20/2022 Protein, Total 6.3 - 8.0 g/dL 6.4 Albumin 3.9 - 4.9 g/dL 4.4 Calcium 8.5 - 10.2 mg/dL 9.4 Bilirubin, Total 0.2 - 1.3 mg/dL 0.8 Alkaline Phosphatase 38 - 113 U/L 78 AST 14 - 40 U/L 28 ALT 10 - 54 U/L 29 Glucose 74 - 99 mg/dL 119 (H) BUN 9 - 24 mg/dL 13 Creatinine 0.73 - 1.22 mg/dL 0.83 Sodium 136 - 144 mmol/L 141 Potassium 3.7 - 5.1 mmol/L 3.9 Chloride 97 - 105 mmol/L 104 CO2 22 - 30 mmol/L 26 Anion Gap 9 - 18 mmol/L 11 eGFR >=60 mL/min/1.73m 91 WBC 3.70 - 11.00 k/uL 7.46 RBC 4.20 - 6.00 m/uL 5.05 Hemoglobin 13.0 - 17.0 g/dL 15.5 Hematocrit 39.0 - 51.0 % 47.4 MCV 80.0 - 100.0 fL 93.9 MCH 26.0 - 34.0 pg 30.7 MCHC 30.5 - 36.0 g/dL 32.7 RDW-CV 11.5 - 15.0 % 13.2 Platelet Count 150 - 400 k/uL 277 MPV 9.0 - 12.7 fL 9.0 Absolute nRBC <0.01 k/uL <0.01 Cholesterol, Total <200 mg/dL 157 Triglyceride <150 mg/dL 54 HDL Cholesterol >39 mg/dL 57 Non HDL Cholesterol <130 mg/dL 100 Fasting Time hrs 12 VLDL Cholesterol <30 mg/dL 11 TC:HDL Ratio <5.10 2.75 LDL Cholesterol <100 mg/dL 89 LDL:HDL Ratio <2.54 1.56 PSA <2.60 ng/mL 0.55 ASSESSMENT/PLAN: 1. Primary hypertension - ICD9: 401.9, ICD10: I10 (primary diagnosis) controlled - Continue current medications - Encouraged sodium restriction, DASH or Mediterranean diet - Recommend regular aerobic exercise 2. Encounter for immunization - ICD9: V03.89, ICD10: Z23 - RSV PRINTED PHARMACY INSTRUCTIONS 3. LISSETTE (obstructive sleep apnea) - ICD9: 327.23, ICD10: G47.33 - CONSULT TO SLEEP MEDICINE - ADULT 4. General weakness - ICD9: 780.79, ICD10: R53.1 5. Dizziness - ICD9: 780.4, ICD10: R42 Resolved, no recurrence 6 mo follow up Johnnie Ross MD Labs today. Josefa Rolle APRN.OPERATOR TECHNICIAN Medical Decision Making: Problems: Moderate: 2+ stable chronic illnesses Data: Unique test result(s) reviewed: 3+ Medical Decision Making Level: 4 - Moderate documented in this encounter [facility] 02-26-2023 History of Present illness Narrative Radiation Oncology - Follow Up Note This is a virtual visit using a HIPAA compliant video platform. It required patient-provider interaction for the medical decision making as documented below. The patient consented to the virtual Visit PATIENT NAME: Ryley Mckeon PATIENT DIAGNOSIS: 77 yo gentleman with hx of adenocarcinoma of the prostate, initial PSA of 7.27 ng/mL, [place] of 3+4=7. Status post I-125 seed implantation on 06/15/2021. INTERVAL HISTORY: Ryley presents, via virtual visit for routine surveillance of prostate cancer follow-up 7months after having last been seen. He continues to experience minor LUTS not on medication. Ryley denies any new health issue since his last follow up appointment PSA HISTORY: PSA (ng/mL) Date Value 08/04/2022 0.55 02/17/2022 0.97 12/16/2021 1.28 04/25/2021 6.63 ALLERGIES Allergen Reactions Hydrocodone Vomiting Oxycodone Vomiting Percocet [Oxycodone* GI Upset buPROPion XL (WELLBUTRIN XL) 300 mg 24 hr tablet Take 1 tablet by mouth once daily. buPROPion XL (WELLBUTRIN XL) 300 mg 24 hr tablet Take 1 tablet by mouth once daily. coenzyme Q10 (COENZYME Q-10) 100 mg cap capsule Take 100 mg by mouth twice daily. ZINC ACETATE ORAL Take by mouth. triamcinolone acetonide (NASACORT NASAL) Use in the nose once daily. atorvastatin (LIPITOR) 40 mg tablet Take 40 mg by mouth once daily. losartan (COZAAR) 25 mg tablet Take 50 mg by mouth once daily. BIOTIN ORAL Take 5,000 mcg by mouth once daily. MULTIVITAMIN TAB Take one(1) tablet by mouth daily. REVIEW OF SYSTEMS: D/N = 5-6/1 x Hematuria: No Dysuria: No Incontinence: No Urgency: none Catheter use: No Medications to aid urination: none - AUA Questionnaire (symptoms within the past 1 month) Incomplete emptyin (not at all) Frequency (within 2 hours): 0 (not at all) Intermittency: 0 (not at all) Urgency: 0 (not at all) Weak stream: 0 (not at all) Strainin (not at all) Nocturia: 0 (none) - Total AUA Score: 1 Bowel movement frequency: 1-2/day Bowel movement quality: normal Blood per rectum: No Last colonoscopy: 2019 Sexual activity: Unable to maintain erections Androgen deprivation: Never. KPS: 90 General Appearance: Alert and oriented. No acute distress. Rectal exam is deferred. ASSESSMENT Ryley continues to experience nocturia 1 x denies residual urinary effects of his radiation. His PSA continues to decrease nicely. I spent a total of 15 minutes on the date of the service which included preparing to see the patient, [id number] patient care, completing clinical documentation, obtaining and/or reviewing separately obtained history, counseling and educating the patient/family/caregiver, ordering medications, tests, or procedures, and communicating results to the patient/family/caregiver. and discussion of his ongoing post radiation follow up. We reviewed current medications for update. We discussed exercise/diet recommendations for increased aerobic fitness and weight control. He does not smoke cigarettes and does moderately drink alcohol. All questions answered at this appointment. Parts of Progress Note were copied from Progress note dated but alvarez elements reviewed, confirmed, and\or updated by me (Camacho Juarez CNP/GENEVIEVE ) on February 26, 2023 PLAN: F/U via virtual visit in October 2023 with a PSA Signed by: Haja Juarez APRN.CNP cc: Johnnie Ross [address] [place] [address] Haja Juarez [address] [facility] [id number] documented in this encounter [facility] 01-25-2023 Miscellaneous Notes TC to patient who verbalized understanding of providers message below and has no questions at this time. AYALA Crooks Please let him know that the ultrasound showed no aneurysm, just some plaque build up and he is already on cholesterol medicine. The radiologist noted a thrombus but I had vascular review the ultrasound and Dr. Larry did not see this. She recommended keeping cholesterol controlled. 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 He is already on xarelto. Is mural thrombus something needing xarelto switched to coumadin instead or something that necessitates referral to vascular? He would likely see you here in [place] for follow up if needed. I was a little surprised by this reading so trying to figure out follow up for him. Thanks! Evangelina Patient requesting provider to advise on his recent aortic US result from 01/22 when able. Pt also requesting result be shared with the Cardiology office that he sees, office of Dr. Nelson. Please call patient with response/updates. Thank you. documented in this encounter [facility] 01-22-2023 History of Present illness Narrative Radiology Service Progress Note PATIENT NAME: Ryley Mckeon DATE OF SERVICE: January 22, 2023 TIME: 8:04 AM PATIENT IDENTITY VERIFICATION COMPLETED USING TWO (2) IDENTIFIERS: Name and Date of confirmed by patient verbally. FALL SCREENING: Has the patient had 2 falls in the last year or 1 fall with injury or currently using an Ambulatory Assistive Device (Walker, Cane, Wheelchair, Crutches, etc.)? No PATIENT GENDER DATA: Male PATIENT RELEVANT IMPLANT DATA REVIEWED: Not Applicable RADIOLOGY DEPARTMENT: Ultrasound PERIPHERAL IV DATA: Not applicable SIGNED BY: Michela Munson Rdms January 22, 2023 8:04 AM documented in this encounter [facility] 01-15-2023 History of Present illness Narrative SUBJECTIVE Ryley Mckeon is a 77 year old male here today for an ER follow up. Chief Complaint Patient presents with: ED Follow-up HPI Ryley Mckeon is a 77 year old male. 01/11 seen in ER at [facility]. Issues with gait and balance. Has been fine since. Suspects combination of a lack of sleep, jet lag, stress. Went in to ER due to noticing dizziness and general weakness when going in to work that day. Work in ER was negative for significant issues. EKG sinus michael, CTA head and neck stable, CT of brain without issues, NIH 0. Labs overall stable. History of a fib. Symptoms have resolved at this point and he overall feels good. His medications were reviewed today and his list is now up to date. Medications Current Outpatient Medications Medication Sig atorvastatin (LIPITOR) 40 mg tablet Take 40 mg by mouth once daily. BIOTIN ORAL Take 5,000 mcg by mouth once daily. buPROPion XL (WELLBUTRIN XL) 300 mg 24 hr tablet Take 1 tablet by mouth once daily. buPROPion XL (WELLBUTRIN XL) 300 mg 24 hr tablet Take 1 tablet by mouth once daily. coenzyme Q10 (COENZYME Q-10) 100 mg cap capsule Take 100 mg by mouth twice daily. losartan (COZAAR) 25 mg tablet Take 50 mg by mouth once daily. MULTIVITAMIN TAB Take one(1) tablet by mouth daily. rivaroxaban (XARELTO) 20 mg tablet Take 20 mg by mouth daily with dinner. triamcinolone acetonide (NASACORT NASAL) Use in the nose once daily. ZINC ACETATE ORAL Take by mouth. No current facility-administered medications for this visit. 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 Langston ([facility]) in 2008, considered to be benign PVCs; improved with beta-michell but developed fatigue, then treated with verapamil Atrial Flutter (Hcc) Comment: probably atypical form; symptomatic Sinus Node Dysfunction (Hcc) S/P Mitral Valve Repair - 08/31/2008 Social History Tobacco Use Smoking status: Former Types: Cigarettes, Pipe Start date: 1968 Quit date: 1975 Years since quittin.8 Smokeless tobacco: Never Tobacco comments: very light, social smoking; also smoked a pipe Vaping Use Vaping Use: Never used Substance Use Topics Alcohol use: Yes Alcohol/week: 7.0 standard drinks of alcohol Types: 7 Glasses of Wine (5oz) per week Comment: glass of red wine with dinner daily Drug use: No Review of Systems Respiratory: Negative. Cardiovascular: Negative. Neurological: Negative for tremors, seizures, syncope, facial asymmetry, speech difficulty, numbness and headaches. OBJECTIVE BP 124/76 Pulse 56 Resp 16 Ht 5' 7 (1.70m) Wt 150 lb (68.0kg) BMI 23.49 kg/(m^2). Physical Exam Vitals and nursing note reviewed. Constitutional: General: He is awake. He is not in acute distress. Appearance: Normal appearance. He is well-developed and well-groomed. He is not ill-appearing, toxic-appearing or diaphoretic. HENT: Head: Normocephalic. Right Ear: External ear normal. Left Ear: External ear normal. Nose: Nose normal. Eyes: General: Vision grossly intact. Conjunctiva/sclera: Conjunctivae normal. Pupils: Pupils are equal, round, and reactive to light. Neck: Vascular: No JVD. Trachea: Trachea normal. Cardiovascular: Rate and Rhythm: Normal rate and regular rhythm. Pulses: Normal pulses. Heart sounds: Normal heart sounds. No murmur heard. Pulmonary: Effort: Pulmonary effort is normal. No accessory muscle usage, prolonged expiration or respiratory distress. Breath sounds: Normal breath sounds. Musculoskeletal: Cervical back: Neck supple. Skin: General: Skin is warm and dry. Capillary Refill: Capillary refill takes less than 2 seconds. Neurological: General: No focal deficit present. Mental Status: He is alert and oriented to person, place, and time. Mental status is at baseline. Psychiatric: Attention and Perception: Attention and perception normal. Mood and Affect: Mood and affect normal. Speech: Speech normal. Behavior: Behavior normal. Behavior is cooperative. Thought Content: Thought content normal. Cognition and Memory: Cognition and memory normal. Judgment: Judgment normal. ASSESSMENT/PLAN: 1. General weakness - ICD9: 780.79, ICD10: R53.1 (primary diagnosis) Improved, reviewed work up in ER, he would like to make sure no AAA so we can do his screening us. - US ABD AORTA 2. Dizziness - ICD9: 780.4, ICD10: R42 See #1 3. Encounter for screening for abdominal aortic aneurysm (AAA) in patient 50 years of age or older with history of smoking - ICD9: V81.2, V15.82, ICD10: Z13.6, Z87.891 - US ABD AORTA Portions of this note have been entered by ancillary staff. I have reviewed and when necessary edited, so that they are an adequate record of my encounter with this patient Please note that parts of this document were created using voice recognition software and therefore may contain grammatical errors. Patient verbalizes understanding of instructions from today's visit and in agreement with treatment plan. Questions answered. Agrees to call the office if questions, concerns of issues with acute symptoms not improving or if they worsen. See diagnoses and orders for additional plan(s). Allergies and medications were reviewed, list was updated, and refills given if needed. Past medical, surgical, social, and family history reviewed and updated as appropriate. Encouraged proper diet & exercise as well as compliance with taking medications. Age-appropriate health preventative measures were discussed. Return if symptoms worsen or fail to improve, for Keep next scheduled appointment.. PARISH Richards documented in this encounter [facility] 01-14-2023 Miscellaneous Notes Patient calling to say he was seen in [facility] ER on 01/11 for balance and gait issues. He says he feels fine now. Offered and scheduled ER follow up visit. Kristi Ann RN documented in this encounter [facility] 08-02-2022 History of Present illness Narrative Radiation Oncology - Follow Up Note This is a virtual visit using a HIPAA compliant video platform. It required patient-provider interaction for the medical decision making as documented below. The patient consented to the virtual Visit PATIENT NAME: Ryley Mckeon PATIENT DIAGNOSIS: 77 yo gentleman with hx of adenocarcinoma of the prostate, initial PSA of 7.27 ng/mL, [place] of 3+4=7. Status post I-125 seed implantation on 06/15/2021. INTERVAL HISTORY: Ryley present, via virtual visit for routine surveillance of prostate cancer follow-up 6 months after having last been seen. He continues to deny any residual urinary effects from his radiation treatment. PSA HISTORY: PSA (ng/mL) Date Value 08/02/2021 pending 02/17/2022 0.97 12/16/2021 1.28 04/25/2021 6.63 ALLERGIES Allergen Reactions Hydrocodone Vomiting Oxycodone Vomiting Percocet [Oxycodone* GI Upset buPROPion XL (WELLBUTRIN XL) 300 mg 24 hr tablet Take 1 tablet by mouth once daily. coenzyme Q10 (COENZYME Q-10) 100 mg cap capsule Take 100 mg by mouth twice daily. ZINC ACETATE ORAL Take by mouth. rivaroxaban (XARELTO) 20 mg tablet Take 20 mg by mouth daily with dinner. triamcinolone acetonide (NASACORT NASAL) Use in the nose once daily. atorvastatin (LIPITOR) 40 mg tablet Take 40 mg by mouth once daily. losartan (COZAAR) 25 mg tablet Take 50 mg by mouth once daily. BIOTIN ORAL Take 5,000 mcg by mouth once daily. MULTIVITAMIN TAB Take one(1) tablet by mouth daily. REVIEW OF SYSTEMS: D/N = 5/0-1 Hematuria: No Dysuria: No Incontinence: No Urgency: none Catheter use: No Medications to aid urination: none - AUA Questionnaire (symptoms within the past 1 month) Incomplete emptyin (not at all) Frequency (within 2 hours): 0 (not at all) Intermittency: 0 (not at all) Urgency: 0 (not at all) Weak stream: 3 (about half the time) Strainin (not at all) Nocturia: 1x per night - Total AUA Score: 4 Bowel movement frequency: 1-2/day Bowel movement quality: normal Blood per rectum: No Last colonoscopy: 220 Sexual activity: Unable to maintain erections Androgen deprivation: Never. KPS: 90 General Appearance: Alert and oriented. No acute distress. Rectal exam is deferred. ASSESSMENT Alexa continues to experience nocturia 1 x, no residual urinary effects of his radiation . His PSA continues to pend. I spent a total of 30 minutes on the date of the service which included preparing to see the patient, [id number] patient care, completing clinical documentation, obtaining and/or reviewing separately obtained history, counseling and educating the patient/family/caregiver, ordering medications, tests, or procedures, independently interpreting results (not separately reported), and communicating results to the patient/family/caregiver. and discussion of his ongoing post radiation follow up. We reviewed current medications for update. We discussed exercise/diet recommendations for increased aerobic fitness and weight control. He does not smoke cigarettes and does moderately drink alcohol. All questions answered at this appointment. Parts of Progress Note were copied from Progress note dated 12/19/2021 but alvarez elements reviewed, confirmed, and\or updated by me (Camacho Juarez CNP/GENEVIEVE ) on August 02, 2022 PLAN: F/U, via virtual visit in February 2023 with a PSA Signed by: Haja Juarez APRN.EMILIA cc: Johnnie Ross [address] [place] [address] Kenneth Lin [address] [facility] [id number] documented in this encounter [facility] 05-27-2022 History of Present illness Narrative Subjective HPI HPI Ryley Mckeon is a 77 year old male who presents today for CC of nasal congestion. This started today. Has tried nothing for relief. Symptoms are worsened by nothing. Risk factors recently treated for covid with antivirals, s/s started few days after antiviral tx. .Patient presents with: Covid Positive: At home test this am. 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 Langston ([facility]) in 2008, considered to be benign PVCs; improved with beta-michell but developed fatigue, then treated with verapamil Prostate cancer (HCC) followed by Dr. Thomas Retinal detachment, left 01/2016 Sinus bradycardia Sinus node dysfunction (HCC) probably in part due to recurrent atrial arrhythmias Unspecified constipation PAST SURGICAL HISTORY Procedure Laterality Date CARDIAC CATH 06/23/2008 reportedly minimal CAD CARDIAC CATH 06/23/2008 LVEF 55%; LAD 10% prox, D1 20-30% ostial, LCX normal, RCA 10-20% prox, right AV branch 10-20%, right PL branch 10-20% CARDIAC STRESS TEST 06/16/2008 no stress-induced myocardial ischemia CARDIOVERSION ELECTIVE ARRHYTHMIA INTERNAL SPX 04/24/2017 CARDIOVERSION ELECTIVE ARRHYTHMIA INTERNAL SPX 04/30/2017 CATARACT EXTRACTION HX Left 10/2016 CATARACT EXTRACTION HX Right 11/2016 COLONOSCOPY FLX DX W/COLLJ SPEC WHEN PFRMD 08/28/2005 Colonoscopy ECHO TRANSESOPHAG CONGEN PROBE [facility] I&R 04/24/2017 Dr. Jony Urrutia: mild global LV systolic dysfxn; LVEF 45%; mild LaE; no clots ECHOCARDIOGRAM 07/31/2016 LVEF 60% ECHOCARDIOGRAM 07/31/2016 LVEF 60%; trivial MR with stable annuloplasty ring; mild TR EYE SURGERY HX Right 12/2016 HOLTER MONITOR 48 HOUR 04/26/2017 sinus rhythm with AF/flutter, max HR 154 bpm; reported symptoms correlated with AF and atrial flutter INGUINAL HERNIA REPAIR HX Right 1969 KNEE SURGERY HX Left 2006 arthroscopy MITRAL VALVE SURGERY HX 10/04/2000 [facility]AST 08/31/2008 [facility]: LVEF 59%; normal RV, LV; no evidence for [facility] MYRINGOTOMY Right PROSTATE BIOPSY 12/2020 [facility] RETINAL DTCHMNT INJECTION AIR/OTHER GAS Left 01/2016 also had right eye retina tacked down at same time SEED IMPLANT 06/2009 prostate STRESS TEST EXERCISE-NUCLEAR 06/16/2008 [facility] ELECTROSURG RESCJ PROSTATE BLEED COMPLETE 10/2013 ALLERGIES Hydrocodone, Oxycodone, and Percocet [Oxycodone-Acetaminophen] MEDICATIONS benzonatate (TESSALON PERLE) 100 mg capsule Take 2 capsules by mouth three times daily as needed. buPROPion XL (WELLBUTRIN XL) 300 mg 24 hr tablet Take 1 tablet by mouth once daily. coenzyme Q10 (COENZYME Q-10) 100 mg cap capsule Take 100 mg by mouth twice daily. ZINC ACETATE ORAL Take by mouth. rivaroxaban (XARELTO) 20 mg tablet Take 20 mg by mouth daily with dinner. triamcinolone acetonide (NASACORT NASAL) Use in the nose once daily. atorvastatin (LIPITOR) 40 mg tablet Take 40 mg by mouth once daily. losartan (COZAAR) 25 mg tablet Take 50 mg by mouth once daily. BIOTIN ORAL Take 5,000 mcg by mouth once daily. MULTIVITAMIN TAB Take one(1) tablet by mouth daily. FAMILY HISTORY Problem Relation Age of Onset other (afib) Sister ablation Coronary Artery Disease Brother had slight heart attack, ? intracoronary stent other (afib) Brother ablation other (sleep apnea) Brother Heart disease Father CABG Coronary Artery Disease Father other (heart attack) Paternal Grandfather Diabetes Mother Alzheimer's Disease Mother late 70s Social History Tobacco Use Smoking status: Former Types: Cigarettes, Pipe Start date: 1968 Quit date: 1974 Years since quittin.1 Smokeless tobacco: Never Tobacco comments: very light, social smoking; also smoked a pipe Vaping Use Vaping Use: Never used Substance Use Topics Alcohol use: Yes Alcohol/week: 7.0 standard drinks Types: 7 Glasses of Wine (5oz) per week Comment: glass of red wine with dinner daily Drug use: No Review of Systems Constitutional: Negative for fever. HENT: Positive for congestion. Negative for ear pain, nosebleeds and sore throat. Respiratory: Negative for cough, shortness of breath and wheezing. Musculoskeletal: Negative for neck pain. Objective Blood pressure 128/70, pulse 62, temperature 36.7 C (98.1 F), resp. rate 16, weight 68.5 kg (151 lb), SpO2 98 %. Physical Exam Constitutional: General: He is not in acute distress. Appearance: He is not toxic-appearing or diaphoretic. HENT: Head: Normocephalic and atraumatic. Cardiovascular: Rate and Rhythm: Normal rate and regular rhythm. Heart sounds: Normal heart sounds, S1 normal and S2 normal. Pulmonary: Effort: Pulmonary effort is normal. Breath sounds: Normal breath sounds. Lymphadenopathy: Cervical: No cervical adenopathy. Right cervical: No superficial cervical adenopathy. Left cervical: No superficial cervical adenopathy. Neurological: Mental Status: He is alert and oriented to person, place, and time. Gait: Gait is intact. ASSESSMENT/PLAN: 1. COVID-19 - ICD9: 079.89, ICD10: U07.1 Suspect post covid antiviral treatment rebound Otc management discussed F/u for continued/worsening s/s. Jassi Peralta APRN.EMILIA documented in this encounter [facility] 05-18-2022 Instructions Emily Thompson APRN.EMILIA - 05/18/2022 9:30 AM EST Your covid test is positive. Follow the CDC guidelines for isolation: 1. Everyone, regardless of vaccination status, should stay home for 5 days. 2. If you have no symptoms or your symptoms are resolving after 5 days, you can leave your house. 3. Continue to wear a mask around others for 5 additional days. If you have a fever, continue to stay home until your fever resolves, even if it is longer than 5 days. Please monitor your symptoms, and for any worrisome symptoms. Continue comfort measures for symptoms as you would for a cold. Any worsening symptoms follow up with PCP or ER. Mucinex, tylenol Fact Sheet for Patients And Caregivers Emergency Use Authorization (EUA) Of Molnupiravir For Coronavirus Disease 2019 (COVID-19) What is the most important information I should know about molnupiravir? Molnupiravir may cause serious side effects, including: Molnupiravir may cause harm to your unborn baby. It is not known if molnupiravir will harm your baby if you take molnupiravir during . Molnupiravir is not recommended for use in . Molnupiravir has not been studied in . Molnupiravir was studied in animals only. When molnupiravir was given to animals, molnupiravir caused harm to their unborn babies. You and your healthcare provider may decide that you should take molnupiravir during if there are no other COVID-19 treatment options authorized by the FDA that are accessible or clinically appropriate for you. If you and your healthcare provider decide that you should take molnupiravir during , you and your healthcare provider should discuss the known and potential benefits and the potential risks of taking molnupiravir during . For individuals who are able to become : You should use a reliable method of control (contraception) consistently and correctly during treatment with molnupiravir and for 4 days after the last dose of molnupiravir. Talk to your healthcare provider about reliable control methods. Before starting treatment with molnupiravir your healthcare provider may do a test to see if you are before starting treatment with molnupiravir. Tell your healthcare provider right away if you become or think you may be during treatment with molnupiravir. Surveillance Program: There is a surveillance program for individuals who take molnupiravir during . The purpose of this program is to collect information about the health of you and your baby. Talk to your healthcare provider about how to take part in this program. If you take molnupiravir during and you agree to participate in the surveillance program and allow your healthcare provider to share your information with [employer], then your healthcare provider will report your use of molnupiravir during to [employer]. by calling or [email or web address]. For individuals who are sexually active with partners who are able to become : It is not known if molnupiravir can affect sperm. While the risk is regarded as low, animal studies to fully assess the potential for molnupiravir to affect the babies of males treated with molnupiravir have not been completed. A reliable method of control (contraception) should be used consistently and correctly during treatment with molnupiravir and for at least 3 months after the last dose. The risk to sperm beyond 3 months is not known. Studies to understand the risk to sperm beyond 3 months are ongoing. Talk to your healthcare provider about reliable control methods. Talk to your healthcare provider if you have questions or concerns about how molnupiravir may affect sperm. You are being given this fact sheet because your healthcare provider believes it is necessary to provide you with molnupiravir for the treatment of adults with zkab-ed-qcdxwehs coronavirus disease 2019 (COVID-19) with positive results of direct SARS-CoV-2 viral testing, and who are at high risk for progressing to severe COVID-19 including hospitalization or , and for whom other COVID-19 treatment options authorized by the FDA are not accessible or clinically appropriate. The [place].S. Food and Drug Administration (FDA) has issued an Emergency Use Authorization (EUA) to make molnupiravir available during the COVID-19 pandemic (for more details about an EUA please see What is an Emergency Use Authorization? at the end of this document). Molnupiravir is not an FDA-approved medicine in the [place]. Read this Fact Sheet for information about molnupiravir. Talk to your healthcare provider about your options if you have any questions. It is your choice to take molnupiravir. What is COVID-19? COVID-19 is caused by a virus called a coronavirus. You can get COVID-19 through close contact with another person who has the virus. COVID-19 illnesses have ranged from very qogm-zy-qwyryt, including illness resulting in . While information so far suggests that most COVID-19 illness is mild, serious illness can happen and may cause some of your other medical conditions to become worse. Older people and people of all ages with severe, long lasting (chronic) medical conditions like heart disease, lung disease and diabetes, for example seem to be at higher risk of being hospitalized for COVID-19. What is molnupiravir? Molnupiravir is an investigational medicine used to treat rsfl-je-ytawkttl COVID-19 in adults: with positive results of direct SARS-CoV-2 viral testing, and who are at high risk for progressing to severe COVID-19 including hospitalization or , and for whom other COVID-19 treatment options authorized by the FDA are not accessible or clinically appropriate. The FDA has authorized the emergency use of molnupiravir for the treatment of mild-tomoderate COVID-19 in adults under an EUA. For more information on EUA, see the What is an Emergency Use Authorization (EUA)? section at the end of this Fact Sheet. Molnupiravir is not authorized: for use in people less than 18 years of age. for prevention of COVID-19. for people needing hospitalization for COVID-19. for use for longer than 5 consecutive days. What should I tell my healthcare provider before I take molnupiravir? Tell your healthcare provider if you: Have any allergies Are or plan to breastfeed Have any serious illnesses Are taking any medicines (prescription, dihc-unl-thdvrdo, vitamins, or herbal products). How do I take molnupiravir? Take molnupiravir exactly as your healthcare provider tells you to take it. Take 4 capsules of molnupiravir every 12 hours (for example, at 8 am and at 8 pm) Take molnupiravir for 5 days. It is important that you complete the full 5 days of treatment with molnupiravir. Do not stop taking molnupiravir before you complete the full 5 days of treatment, even if you feel better. Take molnupiravir with or without food. You should stay in isolation for as long as your healthcare provider tells you to. Talk to your healthcare provider if you are not sure about how to properly isolate while you have COVID-19. Swallow molnupiravir capsules whole. Do not open, break, or crush the capsules. If you cannot swallow capsules whole, tell your healthcare provider. What to do if you miss a dose: If it has been less than 10 hours since the missed dose, take it as soon as you remember If it has been more than 10 hours since the missed dose, skip the missed dose and take your dose at the next scheduled time. Do not double the dose of molnupiravir to make up for a missed dose. What are the important possible side effects of molnupiravir? Possible side effects of molnupiravir are: See, What is the most important information I should know about molnupiravir? diarrhea nausea dizziness These are not all the possible side effects of molnupiravir. Not many people have taken molnupiravir. Serious and unexpected side effects may happen. This medicine is still being studied, so it is possible that all of the risks are not known at this time. What other treatment choices are there? Like molnupiravir, FDA may allow for the emergency use of other medicines to treat people with COVID-19. Go to https://www.fda.gov/emergency-prep rpgfojzi-iqb-apajtxmh/mcm-legalreg kjdqxbq-ybl-lwdwlv-framework/emerg kxaz-oim-ocnxbwoywucaz for more information. It is your choice to be treated or not to be treated with molnupiravir. Should you decide not to take it, it will not change your standard medical care. What if I am ? is not recommended during treatment with molnupiravir and for 4 days after the last dose of molnupiravir. If you are or plan to breastfeed, talk to your healthcare provider about your options and specific situation before taking molnupiravir. How do I report side effects with molnupiravir? Contact your healthcare provider if you have any side effects that bother you or do not go away. Report side effects to FDA MedWatch at www.fda.gov/medwatch or call 6-548-ORK-0202 ( ). How should I store molnupiravir? Store molnupiravir capsules at room temperature between 68 F to 77 F (20 C to 25 C). Keep molnupiravir and all medicines out of the reach of children and pets. How can I learn more about COVID-19? Ask your healthcare provider. Visit www.cdc.gov/COVID19 Contact your local or state public health department. Call [employer] at (toll free in the [place] Visit www.[employer] What Is an Emergency Use Authorization (EUA)? The [place] FDA has made molnupiravir available under an emergency access mechanism called an Emergency Use Authorization (EUA) The EUA is supported by a Domestic Housekeeper of Health and Human Service (HHS) declaration that circumstances exist to justify emergency use of drugs and biological products during the COVID-19 pandemic. Molnupiravir for the treatment of rvef-yw-cpkbzlpa COVID-19 in adults with positive results of direct SARS-CoV-2 viral testing, who are at high risk for progression to severe COVID-19, including hospitalization or , and for whom alternative COVID-19 treatment options authorized by FDA are not accessible or clinically appropriate, has not undergone the same type of review as an FDA-approved product. In issuing an EUA under the COVID-19 public health emergency, the FDA has determined, among other things, that based on the total amount of scientific evidence available including data from adequate and well-controlled clinical trials, if available, it is reasonable to believe that the product may be effective for diagnosing, treating, or preventing COVID-19, or a serious or life-threatening disease or condition caused by COVID19; that the known and potential benefits of the product, when used to diagnose, treat, or prevent such disease or condition, outweigh the known and potential risks of such product; and that there are no adequate, approved, and available alternatives. All of these criteria must be met to allow for the product to be used in the treatment of patients during the COVID-19 pandemic. The EUA for molnupiravir is in effect for the duration of the COVID-19 declaration justifying emergency use of molnupiravir, unless terminated or revoked (after which molnupiravir may no longer be used under the EUA). For patent information: www.[employer]ave/research/patent Copyright 2020 [employer] [place], [place] and its affiliates. All rights reserved. [id number] Issued: 03/30/2021 documented in this encounter [facility] 05-18-2022 History of Present illness Narrative Subjective The history is provided by the patient. No language teacher was used. HPI Ryley Mckeon is a 77 year old male who presents today for CC of sore throat, headache stuffy nose for one day. Home positive covid test. He has used OTC cough and cold medications. BP 138/82 Pulse 88 Temp 36.7 C (98 F) (Tympanic) Resp 18 Wt 70.8 kg (156 lb) SpO2 97% BMI 23.37 kg/m Social History Tobacco Use Smoking status: Former Types: Cigarettes, Pipe Start date: 1968 Quit date: 1974 Years since quittin.1 Smokeless tobacco: Never Tobacco comments: very light, social smoking; also smoked a pipe Vaping Use Vaping Use: Never used Substance Use Topics Alcohol use: Yes Alcohol/week: 7.0 standard drinks Types: 7 Glasses of Wine (5oz) per week Comment: glass of red wine with dinner daily Drug use: No PAST MEDICAL HISTORY Diagnosis Date At risk for stroke [id number] = 2 (HTN, age > 65 yrs) Atrial flutter (HCC) probably atypical form; symptomatic Bradycardia sinus bradycardia Coronary artery disease involving [place] coronary artery of [place] heart without angina pectoris Dr Nelson[facility] Dyslipidemia Hemorrhage of gastrointestinal tract, unspecified HTN (hypertension) Internal hemorrhoids without mention of complication detention (current) use of anticoagulants apixaban (Eliquis); indication: stroke prevention AF Macular hole of right eye Mitral valve regurgitation myxomatous mitral valve regurgitation, s/p MV repair 2000 Persistent atrial fibrillation (HCC) symptomatic; also has paroxysmal episodes; medical therapy very limited by sinus bradycardia PMH - PAST MEDICAL HISTORY OF blood in stool Premature ventricular contractions (PVCs) (VPCs) symptomatic; evaluated by Dr. Langston ([facility]) in 2008, considered to be benign PVCs; improved with beta-michell but developed fatigue, then treated with verapamil Prostate cancer (HCC) followed by Dr. Thomas Retinal detachment, left 01/2016 Sinus bradycardia Sinus node dysfunction (HCC) probably in part due to recurrent atrial arrhythmias Unspecified constipation I have confirmed and edited as necessary, the [facility] Review of Systems Constitutional: Negative for chills and fever. HENT: Positive for congestion, sinus pain and sore throat. Negative for ear pain. Respiratory: Negative for cough, sputum production, shortness of breath and wheezing. Cardiovascular: Negative for chest pain. Musculoskeletal: Negative for myalgias. Neurological: Negative for headaches. Objective Physical Exam Vitals and nursing note reviewed. Constitutional: Appearance: He is not toxic-appearing. HENT: Head: Normocephalic and atraumatic. Right Ear: Tympanic membrane, ear canal and external ear normal. Left Ear: Tympanic membrane, ear canal and external ear normal. Nose: Mucosal edema, congestion and rhinorrhea present. Right Sinus: No maxillary sinus tenderness or frontal sinus tenderness. Left Sinus: No maxillary sinus tenderness or frontal sinus tenderness. Mouth/Throat: Pharynx: Uvula midline. No oropharyngeal exudate or posterior oropharyngeal erythema. Tonsils: No tonsillar abscesses. Cardiovascular: Rate and Rhythm: Normal rate and regular rhythm. Heart sounds: Normal heart sounds. Pulmonary: Effort: Pulmonary effort is normal. Breath sounds: Normal breath sounds. No decreased breath sounds, wheezing, rhonchi or rales. Lymphadenopathy: Head: Right side of head: No submental, submandibular, tonsillar or preauricular adenopathy. Left side of head: No submental, submandibular, tonsillar or preauricular adenopathy. Cervical: No cervical adenopathy. Right cervical: No superficial cervical adenopathy. Left cervical: No superficial cervical adenopathy. Neurological: Mental Status: He is alert. Molnupiravir Eligibility and Patient Discussion [facility] Formulary Restriction Criteria: Adult outpatients 18 years and older with ALL of the following: [x] Patient has positive SARS-COV-2 viral test (PCR or antigen test) during current illness [x] Patient has symptoms for 5 days or less [x] Not requiring hospitalization at any time for management of COVID-19 [x] Not requiring supplemental oxygen or a change in baseline supplemental oxygen [x] Not utilized for pre-exposure or post-exposure prophylaxis for prevention of COVID-19 [x] Patient is not or lactating [] Meeting at least one of the criteria for high risk of progression to severe COVID-19: [x] Age over 65 years [] Cancer [] Chronic kidney disease [] Chronic liver disease [] Chronic lung diseases, including cystic fibrosis [] Dementia or other neurological conditions [] Diabetes (type 1 or type 2) [] Disabilities, including Down syndrome and neurodevelopmental disorders [x] Heart conditions [] HIV infection [] Immunocompromised state [] Mental health conditions [] Medical related technological dependence (tracheostomy, gastrostomy, or positive pressure ventilation (not related to COVID) [] Overweight and obesity (BMI greater or equal to 25 for adults) [] Physical inactivity [] Sickle cell disease or thalassemia [] Smoking, current or former [] Solid organ or blood stem cell transplant [] Stroke or cerebrovascular disease [] Substance use disorders [] Tuberculosis [] People from racial and ethnic minority groups Criteria above are met: Yes Date of Positive Test:05.18.2022 Date of Symptom Onset: 05.17.2022 Patient received COVID vaccine: Yes / status reviewed: Females: [] Patient is not currently and there is no possibility the patient could be (select one of the following): [] test does not need to be confirmed in patients who have undergone permanent sterilization, are currently using an intrauterine system or contraceptive implant, or in whom is not possible. [] Patients not meeting conditions above: assess whether the patient is based on the first day of the last menstrual period in individuals who have regular menstrual cycles, is using reliable method of contraception correctly and consistently or have had a negative test [] A test is recommended if the individual has irregular menstrual cycles, is unsure of the first day of the last menstrual period or is not using effective contraception correctly and consistently [] Patient is not currently . is not recommended during treatment and for four days after final dose of molnupiravir. [] Females have been advised to use a reliable method of contraception correctly and consistently for the duration of treatment and for four days after the last dose of molnupiravir Males: [x] Sexually active male with partner(s) of childbearing potential has been advised to use a reliable method of contraception correctly and consistently for intercourse for the duration of treatment and for three months after the last dose of molnupiravir I have discussed the use of the investigational therapeutic, molnupiravir, for the treatment of mild to moderate COVID-19 and its use under Emergency Use Authorization with the patient. The patient was informed that molnupiravir is not an FDA approved drug and that it is authorized for use under this Emergency Use Authorization. The patient was also informed of the significant known benefits and potential risks of molnupiravir, and the extent to which such potential risks and benefits are unknown. The patient was informed that there is mandatory reporting of all medication errors and serious adverse events potentially related to molnupiravir treatment within 7 calendar days from the onset of the event and that events up to 28 days after completion of therapy need to be reported. The discussion included alternatives to receiving molnupiravir, including clinical trials, and potential the risks and benefits of those alternatives. The patient was provided electronically with the Fact Sheet for Patients, Parents and Caregivers. The patient was also instructed that in addition to the treatment with molnupiravir, he/she should continue to self-isolate and use infection control measures (e.g., wear mask, isolate, social distance, avoid sharing personal items, clean and disinfect high touch surfaces, and frequent handwashing) according to CDC guidelines. The patient stated understanding and gave verbal consent to proceeding with molnupiravir treatment. ASSESSMENT/PLAN: 1. Positive self-administered antigen test for COVID-19 - ICD9: 079.89, ICD10: U07.1 (primary diagnosis) Desires antivirals 2. URI, acute - ICD9: 465.9, ICD10: J06.9 - Discussed viral etiology and rationale for treatment. - Symptomatic treatment with prn analgesia - Supportive care with fluids and rest Diagnosis and treatment plan were discussed and questions were answered to the patient's satisfaction. Pt acknowledged understanding of concepts and follow up plan. Specific signs and symptoms that would indicate the need for higher level of care were discussed in detail warranting prompt ER evaluation. Emily Thompson APRN.CNP May 18, 2022 9:30 AM documented in this encounter [facility] 05-18-2022 Miscellaneous Notes Pt called in and reports he took two Covid tests and they both came back Covid positive. Asked Pt if her would like to do a VV with provider for anti-viral. Pt said he has done them before but didn't seem very sure about doing it. Pt said he was going to come into [facility]. I told him to bring his positive test with him in a plastic bag, come in the back door, wear a mask, and let them know at them desk that he is positive. documented in this encounter [facility] 02-20-2022 History of Present illness Narrative This note was created using [employer]. Subjective Ryley Mckeon is a 76 year old male. Patient presents with: F/U 6 months SUBJECTIVE: Ryley Mckeon is a 76 year old year old gentleman here today for 6 month follow up appointment for review of medical conditions. Cut down on bread a great deal. Eggs more. Continues to follow up with Dr. Nelson once or twice a year. Skin issues noted An inguinal hernia--no pain. Dr. 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 Langston ([facility]) in 2008, considered to be benign PVCs; improved with beta-michell but developed fatigue, then treated with verapamil Prostate cancer (HCC) followed by Dr. Thomas Retinal detachment, left 01/2016 Sinus bradycardia Sinus node dysfunction (HCC) probably in part due to recurrent atrial arrhythmias Unspecified constipation Current Outpatient Medications Medication Sig buPROPion XL (WELLBUTRIN XL) 300 mg 24 hr tablet Take 1 tablet by mouth once daily. coenzyme Q10 (COENZYME Q-10) 100 mg cap capsule Take 100 mg by mouth twice daily. ZINC ACETATE ORAL Take by mouth. rivaroxaban (XARELTO) 20 mg tablet Take 20 mg by mouth daily with dinner. triamcinolone acetonide (NASACORT NASAL) Use in the nose once daily. atorvastatin (LIPITOR) 40 mg tablet Take 40 mg by mouth once daily. losartan (COZAAR) 25 mg tablet Take 50 mg by mouth once daily. BIOTIN ORAL Take 5,000 mcg by mouth once daily. MULTIVITAMIN TAB Take one(1) tablet by mouth daily. No current facility-administered medications for this visit. Review of Systems Objective BP 122/68 Pulse 68 Wt 69.4 kg (153 lb) SpO2 100% BMI 22.93 kg/m Last 5 Encounter Wt Readings: Date: Wt: 02/20/2022 69.4 kg (153 lb) 07/10/2021 68.5 kg (151 lb) 06/26/2021 68 kg (150 lb) 06/13/2021 68.9 kg (152 lb) 04/21/2021 68.9 kg (152 lb) No waist measurement recorded Estimated body mass index is 22.93 kg/m as calculated from the following: Height as of 06/26/21: 174 cm (5' 8.5). Weight as of this encounter: 69.4 kg (153 lb). Last 5 Encounter BP Readings: Date: BP: 02/20/2022 122/68 07/10/2021 113/74 06/26/2021 122/78 06/15/2021 124/77 06/13/2021 129/71 Physical Exam Vitals reviewed. Constitutional: Appearance: Normal appearance. Eyes: Conjunctiva/sclera: Conjunctivae normal. Cardiovascular: Rate and Rhythm: Normal rate and regular rhythm. Heart sounds: Normal heart sounds. Pulmonary: Effort: Pulmonary effort is normal. Breath sounds: Normal breath sounds. Skin: General: Skin is warm and dry. Neurological: General: No focal deficit present. Mental Status: He is alert and oriented to person, place, and time. Psychiatric: Mood and Affect: Mood normal. Behavior: Behavior normal. Thought Content: Thought content normal. Judgment: Judgment normal. Component Latest Ref Rng & Units 08/21/2021 12/16/2021 02/17/2022 Protein, Total 6.3 - 8.0 g/dL 6.9 6.4 Albumin 3.9 - 4.9 g/dL 4.6 4.4 Calcium 8.5 - 10.2 mg/dL 9.7 9.5 Bilirubin, Total 0.2 - 1.3 mg/dL 0.7 0.9 Alkaline Phosphatase 38 - 113 U/L 81 87 AST 14 - 40 U/L 30 33 ALT 10 - 54 U/L 28 32 Glucose 74 - 99 mg/dL 125 (H) 110 (H) BUN 9 - 24 mg/dL 16 14 Creatinine 0.73 - 1.22 mg/dL 0.89 0.83 Sodium 136 - 144 mmol/L 140 141 Potassium 3.7 - 5.1 mmol/L 4.4 4.2 Chloride 97 - 105 mmol/L 104 105 CO2 22 - 30 mmol/L 28 24 Anion Gap 9 - 18 mmol/L 8 (L) 12 eGFR >=60 mL/min/1.73m 90 92 WBC 3.70 - 11.00 k/uL 6.36 RBC 4.20 - 6.00 m/uL 5.16 Hemoglobin 13.0 - 17.0 g/dL 15.9 Hematocrit 39.0 - 51.0 % 48.2 MCV 80.0 - 100.0 fL 93.4 MCH 26.0 - 34.0 pg 30.8 MCHC 30.5 - 36.0 g/dL 33.0 RDW-CV 11.5 - 15.0 % 12.8 Platelet Count 150 - 400 k/uL 308 MPV 9.0 - 12.7 fL 9.2 Absolute nRBC <0.01 k/uL <0.01 Cholesterol, Total <200 mg/dL 135 150 Triglyceride <150 mg/dL 66 54 HDL Cholesterol >39 mg/dL 53 57 Non HDL Cholesterol <130 mg/dL 82 93 Fasting Time hrs 12 12 VLDL Cholesterol <30 mg/dL 13 11 TC:HDL Ratio <5.10 2.55 2.63 LDL Cholesterol <100 mg/dL 69 82 LDL:HDL Ratio <2.54 1.30 1.44 Hemoglobin A1C 4.3 - 5.6 % 5.7 (H) 5.4 Estimated Average Glucose mg/dL 117 108 PSA <2.60 ng/mL 1.28 0.97 Assessment and Plan Encounter Diagnosis ICD-10-CM 1. IFG (impaired fasting glucose) R73.01 COMP METABOLIC PANEL HGB A1C 2. Primary hypertension I10 CBC COMP METABOLIC PANEL 3. Left inguinal hernia K40.90 4. Encounter for long-term current use of medication Z79.899 CBC COMP METABOLIC PANEL LIPID PANEL BASIC HGB A1C Above issues addressed with patient. Patient involved in shared decision making for management of medical issues. Follow up with surgeon regarding hernia. History and medications reviewed. Epic updated as needed Refills and/or prescriptions taken care of and meds adjusted as indicated after reviewed history, exam and labs. Health Maintenance reviewed. Updated record and/or ordered tests as recorded. Encouraged on efforts at healthy diet and regular exercise and adequate sleep. Needs to keep working on diet and exercise with lifestyle changes for effective weight loss as well as prevention of DM, and control of BP and lipids. Johnnie Ross MD documented in this encounter [facility] 02-15-2022 Miscellaneous Notes No answer. Left providers message and ask to call office and ask to speak to a nurse with any questions or concerns. Also doing HgA1C given elevated glucose and HgA1C on prior labs called checking status on lab orders. Pt would like to come Saturday02-17-22 to get the blood work done so the results are back for his apt in the office next week. Please call and let her know when the orders are placed. Margareth Jarrett LPN asking pcp to put orders in lab for CMP and lipids for patient to complete prior to appt on 02-20-22. Please phone to let her know when orders are in lab. Pended. documented in this encounter [facility] 12-19-2021 Instructions Haja Juarez APRN.CNP - 12/19/2021 8:22 AM EDT Cancer Treatment Summary Provided by Haja Juarez APRN.EMILIA on December 18, 2021 General Information Patient Name: Ryley Mckeon (home) [phone] (work) Date of : 1945 Age: [age] year old Support Contact: Extended Emergency Contact Information Primary Emergency Contact: Michelle Mckeon Mobile Relation: Spouse Care Team Urologist Kayleen Bell MD Radiation Oncologist: Sanford Mccurdy MD Primary Care Physician: Johnnie Ross MD Cancer Diagnosis Information Symptoms: Elevated PSA Diagnosis: Prostate Cancer Diagnosis date: 01/25/21 (biopsy confirms diagnosis) Staging Information: IIB Tumor Markers: PSAi: 7.27 (09/2020) Tumor type/histology/grade: Adenocarcinoma of Prostate, GS 7(3+4) Background Information Family history/predisposing conditions: CaP: none listed/Diet/Previous smoking history. 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 Langston ([facility]) in 2008, considered to be benign PVCs; improved with beta-michell but developed fatigue, then treated with verapamil Prostate cancer (HCC) followed by Dr. Thomas Retinal detachment, left 01/2016 Sinus bradycardia Sinus node dysfunction (HCC) probably in part due to recurrent atrial arrhythmias Unspecified constipation Alcohol use: Alcohol Use: Approximately 4.2 oz/week [which includes 7 Glasses of Wine (5oz) per week] (glass of red wine with dinner daily) Tobacco use: Tobacco Use: Quit 04/08/1974. Types: Cigarettes, Pipe (very light, social smoking; also smoked a pipe) Sexual activity: has no history on file for sexual activity. Drug use: Drug Use: No TREATMENT REGIMENS PROVIDED AT CANCER CENTER Radiation Therapy I125 Radiation Therapy Type Area in Treatment Field Total Dose Number of fractions: Sources Total Activity Interstitial Brachytherapy Prostate 144 Gy 1 97 42.01U Procedure Date: 06/15/2021 Treatment Goal: Curative Treatment on Clinical Trial? No Reason for Stopping Treatment: Completion Treatment-related hospitalization Required? No Treatment Summary Pre-Treatment: Post-Treatment: ECOG Performance: 100% - Normal, no complaints, no evidence of disease. 90% - Able to carry on normal activity: minor symptoms of disease. Follow Up and Survivorship Care Years since Diagnosis Outpatient Visits Labs 0-5 Every 6 months Every 6 months >5 Once a year PSA every 6 months Additional Follow Up: None Healthy Lifestyle: Heart Healthy Diet: Low animal fat, Increase fruits and vegetables Aerobic Exercise: 30 minutes daily Continue smoke free Alcohol: Moderate Intake Yearly Physical: PCP Potential late effects of treatment(s): Erectile dysfunction Hematuria (blood in urine) Radiation Cystitis When to call: If you have gross hematuria (blood in urine) which continues for several days If you have dysuria (painful urination) that continues for a week or more If you have any other questions or concerns. Additional Information: Genetics: Some cancers have a familial link. If your provider has informed you that your cancer has a possible familial link, it is important to talk with your family members regarding this information. As genetic counseling and early cancer screening and prevention may be able to help future generations against the cancers that you have dealt with. Financial, Insurance, Employment: If you are having any insurance, employment, and financial consequences of cancer, please let your provider know and refer to the booklet that was provided to you when you started your treatment. Marital/Partner Relationship, Parenting, and other Support If you are having marital/partner relationship, parenting, and other family needed support in relation to cancer, please let your provider know and refer to the booklet that was provided to you when you started your treatment. Referrals: All referrals made on this visit will be reviewed with you and can be found on your After Visit Summary (AVS). If at any time you have questions, please do not hesitate to contact your provider. Survivorship Contacts: If at any time you have questions or concerns, please do not hesitate to contact Haja Juarez, [facility] [phone]. 2008 [place] [employer]. All rights reserved. Important caution: this is a summary document whose purpose is to review the highlights of the cancer treatment for this patient. This does not replace information available in the medical record, a complete medical history provided by the patient, examination and diagnostic information, or educational materials that describe strategies for coping with cancer and cancer therapies in detail. Both medical science and an individual's health care needs change, and therefore this document is current only as of the date of preparation. This summary document does not prescribe or recommend any particular medical treatment or care for cancer or any other disease and does not substitute for the independent medical judgment of the treating professional. Office: [phone] E-Mail: [email or web address] documented in this encounter [facility] 12-19-2021 History of Present illness Narrative Radiation Oncology - Follow Up Note This is a virtual visit using a HIPAA compliant video platform. It required patient-provider interaction for the medical decision making as documented below. The patient consented to the virtual Visit PATIENT NAME: Ryley Mckeon PATIENT DIAGNOSIS: 76 yo gentleman with hx of adenocarcinoma of the prostate, initial PSA of 7.27 ng/mL, [place] of 3+4=7. Status post I-125 seed implantation on 06/15/2021. INTERVAL HISTORY:Ryley presents, via virtual visit for a survivorship appointment and his routine surveillance of prostate cancer follow-up 6 months after having last been seen.He continues to deny residual urinary effects of his radiation. LUTS not on medication. He is moderately potent w/o medication.He denies any new health issues since his last follow up appointment. PSA HISTORY: PSA (ng/mL) Date Value 12/16/2021 1.28 04/25/2021 6.63 ALLERGIES Allergen Reactions Hydrocodone Vomiting Oxycodone Vomiting Percocet [Oxycodone* GI Upset buPROPion XL (WELLBUTRIN XL) 300 mg 24 hr tablet Take 1 tablet by mouth once daily. coenzyme Q10 (COQ-10) 100 mg cap capsule Take 100 mg by mouth twice daily. ZINC ACETATE ORAL Take by mouth. rivaroxaban (XARELTO) 20 mg tablet Take 20 mg by mouth daily with dinner. triamcinolone acetonide (NASACORT NASAL) Use in the nose once daily. atorvastatin (LIPITOR) 40 mg tablet Take 40 mg by mouth once daily. losartan (COZAAR) 25 mg tablet Take 50 mg by mouth once daily. BIOTIN ORAL Take 5,000 mcg by mouth once daily. MULTIVITAMIN TAB Take one(1) tablet by mouth daily. REVIEW OF SYSTEMS: D/N = 5/1 Hematuria: No Dysuria: No Incontinence: No Urgency: none Catheter use: No Medications to aid urination: none - AUA Questionnaire (symptoms within the past 1 month) Incomplete emptyin (not at all) Frequency (within 2 hours): 0 (not at all) Intermittency: 0 (not at all) Urgency: 0 (not at all) Weak stream: 0 (not at all) Strainin (not at all) Nocturia: 1x per night - Total AUA Score: 1 Bowel movement frequency: 1-2/day Bowel movement quality: normal Blood per rectum: No Last colonoscopy: seven years ago Sexual activity: Unable to maintain erections Androgen deprivation: Never. KPS: 90 General Appearance: Alert and oriented. No acute distress. Rectal exam is deferred. Survivorship Review of Systems Patient identified the following survivorship concerns related to his recent cancer diagnosis and treatment: Cardiac Toxicity: No Emotional Health: No Cognitive Function: No Fatigue/Sleep: No Lymphedema: No Pain: No Endocrine: No Sexual Function: Yes, Yes Concerns regarding sexual function, sexual activity, sexual relationships or sex life? Yes Fertility difficulties? No Healthy Lifestyle: No Preventative Health: No General Health Overall, the patient feels his health is Good. Any other concerns not identified today: No ASSESSMENT Ryley continues to experience nocturia 1 x , no residual urinary effects of his radiation ans off Tamsulosin.. His initial PSA continues to decrease nicely. .I spent a total of 30 minutes on the date of the service which included preparing to see the patient, [id number] patient care, completing clinical documentation, obtaining and/or reviewing separately obtained history, counseling and educating the patient/family/caregiver, ordering medications, tests, or procedures, independently interpreting results (not separately reported), and communicating results to the patient/family/caregiver and discussion of his Survivorship Summary, discussed in detail and his ongoing post radiation follow up. We reviewed current medications for update. We discussed exercise/diet recommendations for increased aerobic fitness and weight control. He does not smoke cigarettes and moderately does drink alcohol. PLAN: F/U via virtual visit July 2022 with a PSA Signed by: Haja Juarez APRN.CNP cc: Johnnie Ross [address] [place] [address] Sanford Mccurdy [id number] [facility] [id number] documented in this encounter [facility] 08-22-2021 Miscellaneous Notes Had discussed at appointment. Since 60 pills lasted since last November, and prior RX lasted almost a year. Will okay 30 pills for now. Has appointment in February, so this should last till then, but if not, he may call for a refill prior to February. The following approved medication requests have been transmitted electronically. Signed Prescriptions Disp Refills buPROPion XL (WELLBUTRIN XL) 300 mg 24 hr tablet 30 tablet 5 Sig: Take 1 tablet by mouth once daily. JORGE: No Authorizing Provider: JOHNNIE ROSS LORazepam (ATIVAN) 0.5 mg 30 tablet 0 Sig: Take 0.5-1 tablets by mouth as needed (anxiety) for up to 30 days. [place] Class: C-IV JORGE: No Authorizing Provider: JOHNNIE ROSS MD Last seen 06/26/21. Patient has been identified by name and date of : Yes Pending Prescriptions Disp Refills BUPROPION XL 300 MG 24 HR TAB Sig: Take 1 tablet by mouth once daily. JORGE: No LORAZEPAM 0.5 MG TABLET Sig: Take 0.5 tablets by mouth as needed (anxiety). [place] Class: C-IV JORGE: No RX INSTRUCTIONS: Patient aware RX will be sent to pharmacy. No need to notify patient. Rebecca Contreras documented in this encounter [facility] 07-10-2021 History of Present illness Narrative [facility] CLINICAL NOTE Radiation Oncology [id number] ATTENDING PHYSICIAN: Sanford Mccurdy M.D. DATE OF SERVICE: July 10, 2021 HPI: Ryley Mckeon is a gentleman with adenocarcinoma of the prostate, initial PSA of 7.27 ng/mL, [place] of 3+4=7. Status post I-125 seed implantation on 06/15/2021. D/N = 5-6/2; bowel movements 6 per day; no dysuria ; no hematuria; no hematochezia ; weak force of stream; he is not potent. Physical exam of the prostate deferred, however, examination of his postoperative CAT scan demonstrates adequate seed positioning without evidence for periprostatic abscess formation or urinary retention. ASSESSMENT: Expected toxicity. PLAN: Please schedule F/U with Camacho Juarez CNP in 6 months for survivorship visit, and with Dr. Lin in 1 year, with PSA prior to each visit. This note has been electronically signed. July 10, 2021 Sanford Mccurdy M.D. cc: Johnnie Ross MD [id number] [facility] [id number] documented in this encounter [facility] 07-10-2021 History of Present illness Narrative Patient: Ryley Mckeon Date:07/10/2021 [facility] Department of Radiation Oncology [facility] RADIATION ONCOLOGY POST SEED IMPLANT SIMULATION NOTE DATE OF SIMULATION: 07/10/2021 MACHINE: CT Simulator AREA: Prostate cancer s/p brachytherapy. PATIENT POSITION: Supine. CONTRAST: None PROTOCOL: None FIXATION DEVICE: None PROCEDURE: Patient was simulated on the CT scanner and CT images of the patient's pelvis were obtained. ASSESSMENT/PLAN: Patient tolerated simulation procedure well. CT images were obtained on the CT simulator for prostate post-brachytherapy seed implant planning. quality assurance clerk planning for the permanent seed prostate brachytherapy procedure will commence following simulation. Electronically Signed SANFORD MCCURDY M.D. 28:30 AM documented in this encounter [facility] 06-30-2021 Miscellaneous Notes RADIATION POST TREATMENT CALL BACK This nurse called patient to follow up s/p brachytherapy on 06/15/21. No answer. left msg advising patient to please call Dr. Mccurdy's office at [phone] with any questions or concerns regarding side effects related to procedure.This nurse also reminded patient of upcoming follow up appt with Dr. Mccurdy on 07/10/21 Jose Tafoya RN documented in this encounter [facility] 06-15-2021 Note HNO ID: [id number] Author: Sanford Mccurdy MD Service: Radiation Oncology Author Type: Physician Type: Progress Notes Filed: 06/15/2021 1:12 PM Note Text: [facility] CLINICAL NOTE Radiation Oncology PATIENT NAME: Ryley Medrano [facility] NO.: [id number] ATTENDING PHYSICIAN: Sanford Mccurdy M.D. DATE OF SERVICE: June 15, 2021 FINISH NOTE SITE: Prostate. ISOTOPE: I-125. DISEASE: Adenocarcinoma of the prostate, initial PSA of 7.27 ng/mL, [place] of 3+4=7. DELIVERED DOSE: The prostate, through an [employer]tek template technique, received a total of 144 Gy utilizing 97 sources with a total activity of 42.01 U. TOLERANCE: The patient tolerated the procedure well. REMARKS: Patient to follow up in about 1 month to assess acute radiation toxicity. In addition, he will receive a CT scan of the pelvis in about 1 month to assess the position of the implanted sources. Of note is that the implant required a total of 31 needles, and the prostate measured 3.6 cm long, 5.6 cm wide, and 3.5 cm tall. Survey Meter readings (mR/hr): Contact - 10.7 10 cm - 4.3 1 m - 0.04 background - 0.007 Sanford Mccurdy M.D. This note has been electronically signed. June 15, 2021 cc: Johnnie Ross MD [facility] 06-15-2021 Note HNO ID: [id number] Author: Monet Dugan APRN.SIGNS AND DISPLAYS SALESPERSON Service: Anesthesiology Author Type: Nurse Hydraulic Plumber Helper Type: Anesthesia Procedure Notes Filed: 06/15/2021 12:35 PM Note Text: ANESTHESIOLOGY PROCEDURE NOTE Airway General Information Procedure Start Time/Medication Administration: 06/15/2021 12:25 PM Patient location during procedure: OR Patient identity confirmed: arm band and patient Staffing SIGNS AND DISPLAYS SALESPERSON: Monet Dugan APRN.SIGNS AND DISPLAYS SALESPERSON Performed by: RENETTA Indications and Patient Condition Preoxygenated: yes Manual In-Line Stabilization: No Indications for airway management: anesthesia anesthesia circuit Method: asleep Cricoid Pressure: No Final Airway Details Final airway type: endotracheal airway Final Endotracheal Airway: ETT Cuffed: yes Successful intubation technique: direct laryngoscopy Endotracheal tube insertion site: oral Blade: Scott Blade size: #4 ETT size (mm): 7.5 Measured from: lips Measurement (cm): 22 Placement verified by: chest auscultation and capnometry Cormack-Lehane Classification: grade I - full view of glottis Number of attempts at approach: 1 Comments IGEL 4 placed initially with large leak observed, exchanged for IGEL 5 with leak still present. Elected to intubate as documented SIGNATURE: Monet Dugan APRN.CRNA PATIENT NAME: Ryley Mckeon DATE: June 15, 2021 TIME: 12:32 PM CSN: [id number] [facility] 12-22-2020 Note HNO ID: [id number] Author: Jessy Hughes Service: Radiology Author Type: Senior Project Leader/Team Lead Type: Progress Notes Filed: 12/22/2020 2:49 PM Note Text: Radiology Service Progress Note PATIENT NAME: Ryley Mckeon DATE OF SERVICE: December 22, 2020 TIME: 2:49 PM PATIENT IDENTITY VERIFICATION COMPLETED USING TWO (2) IDENTIFIERS: Name and Date of confirmed by patient verbally. FALL SCREENING: Has the patient had 2 falls in the last year or 1 fall with injury or currently using an Ambulatory Assistive Device (Walker, Cane, Wheelchair, Crutches, etc.)? No PATIENT GENDER DATA: Male PATIENT RELEVANT IMPLANT DATA REVIEWED: Yes RADIOLOGY DEPARTMENT: MR; Exam(s) Completed: Body: Prostate PERIPHERAL IV DATA: Site assessment: Clean,Dry and Intact, Site disposition Discontinued SIGNED BY: Jessy Hughes December 22, 2020 2:49 PM [facility] 12-22-2020 Note HNO ID: [id number] Author: Germán Gonzalez RN Service: Nursing Author Type: Registered Nurse Type: Progress Notes Filed: 12/22/2020 1:51 PM Note Text: Radiology Service Progress Note DATE OF SERVICE: December 22, 2020 TIME: 1:51 PM PATIENT WEIGHT: 150 LBS PATIENT IDENTITY VERIFICATION COMPLETED USING TWO (2) STANDARD IDENTIFIERS: Name and Date of confirmed by patient verbally and Name and Date of confirmed by identification band. FALL SCREENING: Has the patient had 2 falls in the last year or 1 fall with injury or currently using an Ambulatory Assistive Device (Walker, Cane, Wheelchair, Crutches, etc.)? No PATIENT GENDER DATA: Male ALLERGIES: Reviewed and unchanged CONTRAST ALLERGY: No EXAM: MRI - CONTRAST TYPE: GROUP II IV SITE: Ambulatory: A peripheral IV was started in the Left antecubital site with a Angio cath: 22 gauge. IV SITE APPEARANCE: Clean,Dry and Intact SIGNATURE: Germán Gonzalez RN PATIENT NAME: Ryley Mckeon DATE: December 22, 2020 TIME: 1:51 PM [facility] 05-28-2017 History of Past i llness Narrative Problem Noted Date Resolved Date Palpitations 05/28/2017 06/13/2021 Sinus bradycardia 06/13/2021 documented as of this encounter (statuses as of 06/30/2021) [facility] History of Past illness Narrative* Problem Noted Date Resolved Date Palpitations 05/28/2017 06/13/2021 Sinus bradycardia 06/13/2021 documented as of this encounter (statuses as of 07/06/2021) [facility] History of Past illness Narrative* Problem Noted Date Resolved Date Palpitations 05/28/2017 06/13/2021 Sinus bradycardia 06/13/2021 documented as of this encounter (statuses as of 07/10/2021) [facility] History of Past illness Narrative* Problem Noted Date Resolved Date Palpitations 05/28/2017 06/13/2021 Sinus bradycardia 06/13/2021 documented as of this encounter (statuses as of 07/11/2021) [facility] History of Past illness Narrative* Problem Noted Date Resolved Date Palpitations 05/28/2017 06/13/2021 Sinus bradycardia 06/13/2021 documented as of this encounter (statuses as of 08/23/2021) [address]20-2018 History of Past illness Narrative* Problem Noted Date Resolved Date Palpitations 05/28/2017 06/13/2021 Sinus bradycardia 06/13/2021 documented as of this encounter (statuses as of 12/19/2021) [address]20-2018 History of Past illness Narrative* Problem Noted Date Resolved Date Palpitations 05/28/2017 06/13/2021 Sinus bradycardia 06/13/2021 documented as of this encounter (statuses as of 01/06/2022) [address]20-2018 History of Past illness Narrative* Problem Noted Date Resolved Date Palpitations 05/28/2017 06/13/2021 Sinus bradycardia 06/13/2021 documented as of this encounter (statuses as of 02/15/2022) [address]-2018 History of Past illness Narrative* Problem Noted Date Resolved Date Palpitations 05/28/2017 06/13/2021 Sinus bradycardia 06/13/2021 documented as of this encounter (statuses as of 03/16/2022) [address]20-2018 History of Past illness Narrative* Problem Noted Date Resolved Date Palpitations 05/28/2017 06/13/2021 Sinus bradycardia 06/13/2021 documented as of this encounter (statuses as of 03/22/2022) [address]20-2018 History of Past illness Narrative* Problem Noted Date Resolved Date Palpitations 05/28/2017 06/13/2021 Sinus bradycardia 06/13/2021 documented as of this encounter (statuses as of 05/18/2022) [address]20-2018 History of Past illness Narrative* Problem Noted Date Resolved Date Palpitations 05/28/2017 06/13/2021 Sinus bradycardia 06/13/2021 documented as of this encounter (statuses as of 05/18/2022) [address]20-2018 History of Past illness Narrative* Problem Noted Date Resolved Date Palpitations 05/28/2017 06/13/2021 Sinus bradycardia 06/13/2021 documented as of this encounter (statuses as of 05/27/2022) [address]20-2018 History of Past illness Narrative* Problem Noted Date Resolved Date Palpitations 05/28/2017 06/13/2021 Sinus bradycardia 06/13/2021 documented as of this encounter (statuses as of 08/02/2022) [facility]02-20-2018 History of Past illness Narrative* Problem Noted Date Diagnosed Date Resolved Date Palpitations 05/28/2017 06/13/2021 Sinus bradycardia 06/13/2021 documented as of this encounter (statuses as of 01/15/2023) [address]20-2018 History of Past illness Narrative* Problem Noted Date Diagnosed Date Resolved Date Palpitations 05/28/2017 06/13/2021 Sinus bradycardia 06/13/2021 documented as of this encounter (statuses as of 01/16/2023) [address]20-2018 History of Past illness Narrative* Problem Noted Date Diagnosed Date Resolved Date Palpitations 05/28/2017 06/13/2021 Sinus bradycardia 06/13/2021 documented as of this encounter (statuses as of 01/25/2023) [address]20-2018 History of Past illness Narrative* Problem Noted Date Diagnosed Date Resolved Date Palpitations 05/28/2017 06/13/2021 Sinus bradycardia 06/13/2021 documented as of this encounter (statuses as of 02/08/2023) [facility]2018 History of Past illness Narrative* Problem Noted Date Diagnosed Date Resolved Date Palpitations 05/28/2017 06/13/2021 Sinus bradycardia 06/13/2021 documented as of this encounter (statuses as of 02/26/2023) [address]20-2018 History of Past illness Narrative* Problem Noted Date Diagnosed Date Resolved Date Palpitations 05/28/2017 06/13/2021 Sinus bradycardia 06/13/2021 documented as of this encounter (statuses as of 02/26/2023) [facility]2018 History of Past illness Narrative* Problem Noted Date Diagnosed Date Resolved Date Palpitations 05/28/2017 06/13/2021 Sinus bradycardia 06/13/2021 documented as of this encounter (statuses as of 05/13/2023) [address]20-2018 History of Past illness Narrative* Problem Noted Date Diagnosed Date Resolved Date Palpitations 05/28/2017 06/13/2021 Sinus bradycardia 06/13/2021 documented as of this encounter (statuses as of 05/13/2023) [address]20-2018 History of Past illness Narrative* Problem Noted Date Diagnosed Date Resolved Date Palpitations 05/28/2017 06/13/2021 Sinus bradycardia 06/13/2021 documented as of this encounter (statuses as of 05/14/2023) [facility]02-20-2018 History of Past illness Narrative* Problem Noted Date Diagnosed Date Resolved Date Palpitations 05/28/2017 06/13/2021 Sinus bradycardia 06/13/2021 documented as of this encounter (statuses as of 05/16/2023) [facility]02-20[facility]2018 History of Past illness Narrative* Problem Noted Date Diagnosed Date Resolved Date Palpitations 05/28/2017 06/13/2021 Sinus bradycardia 06/13/2021 documented as of this encounter (statuses as of 07/11/2023) [facility]06-[facility] Evaluation note* Diagnosis Onset Date Resolution Status Essential (primary) hypertension acute Dyslipidemia chronic Paroxysmal atrial fibrillation chronic History of mitral valve repair October 04, 2000 resolved [facility] Work Phone: Evaluation note* Diagnosis Malignant neoplasm of prostate (HCC)- Primary Malignant neoplasm of prostate [facility] Diagnosis Panic attack- Primary Panic disorder without agoraphobia documented in this encounter [facility] note* Diagnosis Encounter for follow-up surveillance of prostate cancer- Primary Unspecified follow-up examination [facility] this [facility] Diagnosis IFG (impaired fasting glucose)- Primary Impaired fasting glucose Dyslipidemia Other and unspecified hyperlipidemia Encounter for long-term current use of medication documented in this encounter [facility] note* Diagnosis IFG (impaired fasting glucose)- Primary Impaired fasting glucose Primary hypertension Unspecified essential hypertension Left inguinal hernia Inguinal hernia without mention of obstruction or gangrene, unilateral or unspecified, (not specified as recurrent) Encounter for long-term current use of medication Malignant neoplasm of prostate (HCC)- Primary Malignant neoplasm of prostate [facility]* Diagnosis Screening for genitourinary condition Screening for other and unspecified genitourinary condition [facility] Diagnosis Positive self-administered antigen test for COVID-19- Primary URI, acute Acute upper respiratory infections of unspecified site [facility] Diagnosis COVID-19- Primary [facility] Diagnosis Encounter for follow-up surveillance of prostate cancer- Primary Unspecified follow-up examination documented in this encounter [facility] note* Diagnosis General weakness- Primary Other malaise and fatigue Dizziness Dizziness and giddiness Encounter for screening for abdominal aortic aneurysm (AAA) in patient 50 years of age or older with history of smoking [facility] Diagnosis General weakness Other malaise and fatigue Encounter for screening for abdominal aortic aneurysm (AAA) in patient 50 years of age or older with history of smoking [facility] Diagnosis Encounter for follow-up surveillance of prostate cancer- Primary Unspecified follow-up examination [facility] Diagnosis Primary hypertension- Primary Unspecified essential hypertension Encounter for immunization Need for other specified prophylactic vaccination against single bacterial disease LISSETTE (obstructive sleep apnea) Obstructive sleep apnea (adult) (pediatric) General weakness Other malaise and fatigue Dizziness Dizziness and giddiness documented in this encounter [facility] note* Diagnosis Malignant neoplasm of prostate (HCC)- Primary Malignant neoplasm of prostate [facility] Diagnosis LISSETTE (obstructive sleep apnea) Obstructive sleep apnea (adult) (pediatric) [facility] Diagnosis Screening for genitourinary condition Screening for other and unspecified genitourinary condition [facility] Diagnosis Dyslipidemia- Primary Other and unspecified hyperlipidemia detention (current) use of anticoagulants Long-term (current) use of anticoagulants IFG (impaired fasting glucose) Impaired fasting glucose [facility] Diagnosis IFG (impaired fasting glucose)- Primary Impaired fasting glucose Dyslipidemia Other and unspecified hyperlipidemia Sinus node dysfunction (HCC) Sinoatrial node dysfunction Persistent atrial fibrillation (HCC) Atrial fibrillation Malignant neoplasm of prostate (HCC) Malignant neoplasm of prostate Encounter for long-term current use of medication [facility] Diagnosis Encounter for follow-up surveillance of prostate cancer- Primary Unspecified follow-up examination [facility] Diagnosis Pre-op evaluation- Primary Preoperative examination, unspecified Malignant neoplasm of prostate (HCC) Malignant neoplasm of prostate Anxiety and depression Dysthymic disorder LIS[place]TE (obstructive sleep apnea) Obstructive sleep apnea (adult) (pediatric) 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 Long-term (current) use of anticoagulants Atypical atrial flutter (HCC) Atrial flutter Persistent atrial fibrillation (HCC) Atrial fibrillation Coronary artery disease, unspecified vessel or lesion type, unspecified whether angina present, unspecified whether [place] or transplanted heart Hypertension, unspecified type Dyslipidemia Other and unspecified hyperlipidemia S/P mitral valve repair Other postprocedural status Tricuspid valve insufficiency, unspecified etiology Systolic dysfunction Heart disease, unspecified Medicare annual wellness visit, subsequent- Primary Routine general medical examination at a [facility] care facility History of mitral valve repair Personal history of surgery to heart and great vessels, presenting hazards to health [facility] Diagnosis Pre-op evaluation- Primary Preoperative examination, unspecified Malignant neoplasm of prostate (HCC) Malignant neoplasm of prostate Anxiety and depression Dysthymic disorder LISSETTE (obstructive sleep apnea) Obstructive sleep apnea (adult) (pediatric) detention (current) use of anticoagulants Long-term (current) use of anticoagulants Atypical atrial flutter (HCC) Atrial flutter Persistent atrial fibrillation (HCC) Atrial fibrillation Coronary artery disease, unspecified vessel or lesion type, unspecified whether angina present, unspecified whether [place] or transplanted heart Hypertension, unspecified type Dyslipidemia Other and unspecified hyperlipidemia S/P mitral valve repair Other postprocedural status Tricuspid valve insufficiency, unspecified etiology Systolic dysfunction Heart disease, unspecified Tachycardia- Primary Tachycardia, unspecified documented in this encounter [facility] note* Diagnosis Pre-op evaluation- Primary Preoperative examination, unspecified Malignant neoplasm of prostate (HCC) Malignant neoplasm of prostate Anxiety and depression Dysthymic disorder LIS[place]TE (obstructive sleep apnea) Obstructive sleep apnea (adult) (pediatric) 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 Long-term (current) use of anticoagulants Atypical atrial flutter (HCC) Atrial flutter Persistent atrial fibrillation (HCC) Atrial fibrillation Coronary artery disease, unspecified vessel or lesion type, unspecified whether angina present, unspecified whether [place] or transplanted heart Hypertension, unspecified type Dyslipidemia Other and unspecified hyperlipidemia S/P mitral valve repair Other postprocedural status Tricuspid valve insufficiency, unspecified etiology Systolic dysfunction Heart disease, unspecified Atrial fibrillation and flutter (HCC)- Primary Atrial fibrillation Acute bronchitis, unspecified organism Sore throat Acute pharyngitis documented in this encounter [facility] note* Diagnosis Pre-op evaluation- Primary Preoperative examination, unspecified Malignant neoplasm of prostate (HCC) Malignant neoplasm of prostate Anxiety and depression Dysthymic disorder LIS[place] (obstructive sleep apnea) Obstructive sleep apnea (adult) (pediatric) detention (current) use of anticoagulants Long-term (current) use of anticoagulants Atypical atrial flutter (HCC) Atrial flutter Persistent atrial fibrillation (HCC) Atrial fibrillation Coronary artery disease, unspecified vessel or lesion type, unspecified whether angina present, unspecified whether [place] or transplanted heart Hypertension, unspecified type Dyslipidemia Other and unspecified hyperlipidemia S/P mitral valve repair Other postprocedural status Tricuspid valve insufficiency, unspecified etiology Systolic dysfunction Heart disease, unspecified Gross hematuria- Primary documented in this encounter [facility] note* Diagnosis Pre-op evaluation- Primary Preoperative examination, unspecified Malignant neoplasm of prostate (HCC) Malignant neoplasm of prostate Anxiety and depression Dysthymic disorder LIS[place]TE (obstructive sleep apnea) Obstructive sleep apnea (adult) (pediatric) 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 Long-term (current) use of anticoagulants Atypical atrial flutter (HCC) Atrial flutter Persistent atrial fibrillation (HCC) Atrial fibrillation Coronary artery disease, unspecified vessel or lesion type, unspecified whether angina present, unspecified whether [place] or transplanted heart Hypertension, unspecified type Dyslipidemia Other and unspecified hyperlipidemia S/P mitral valve repair Other postprocedural status Tricuspid valve insufficiency, unspecified etiology Systolic dysfunction Heart disease, unspecified Encounter for follow-up surveillance of prostate cancer- Primary Unspecified follow-up examination documented in this encounter [facility] note* Diagnosis Pre-op evaluation- Primary Preoperative examination, unspecified Malignant neoplasm of prostate (HCC) Malignant neoplasm of prostate Anxiety and depression Dysthymic disorder LISSETTE (obstructive sleep apnea) Obstructive sleep apnea (adult) (pediatric) 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 Long-term (current) use of anticoagulants Atypical atrial flutter (HCC) Atrial flutter Persistent atrial fibrillation (HCC) Atrial fibrillation Coronary artery disease, unspecified vessel or lesion type, unspecified whether angina present, unspecified whether [place] or transplanted heart Hypertension, unspecified type Dyslipidemia Other and unspecified hyperlipidemia S/P mitral valve repair Other postprocedural status Tricuspid valve insufficiency, unspecified etiology Systolic dysfunction Heart disease, unspecified Persistent atrial fibrillation (HCC)- Primary Atrial fibrillation At risk for stroke Other specified personal history presenting hazards to health 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 Long-term (current) use of anticoagulants At risk for bleeding associated with anticoagulants Gross hematuria Bradycardia Other specified cardiac dysrhythmias Sinus node dysfunction (HCC) Sinoatrial node dysfunction History of mitral valve repair Personal history of surgery to heart and great vessels, presenting hazards to health LISSETTE (obstructive sleep apnea) Obstructive sleep apnea (adult) (pediatric) documented in this encounter [facility] note* Diagnosis Pre-op evaluation- Primary Preoperative examination, unspecified Malignant neoplasm of prostate (HCC) Malignant neoplasm of prostate Anxiety and depression Dysthymic disorder LIS[place]TE (obstructive sleep apnea) Obstructive sleep apnea (adult) (pediatric) 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 Long-term (current) use of anticoagulants Atypical atrial flutter (HCC) Atrial flutter Persistent atrial fibrillation (HCC) Atrial fibrillation Coronary artery disease, unspecified vessel or lesion type, unspecified whether angina present, unspecified whether [place] or transplanted heart Hypertension, unspecified type Dyslipidemia Other and unspecified hyperlipidemia S/P mitral valve repair Other postprocedural status Tricuspid valve insufficiency, unspecified etiology Systolic dysfunction Heart disease, unspecified Gross hematuria Malignant neoplasm of prostate (HCC)- Primary Malignant neoplasm of prostate Gross hematuria documented in this encounter [facility] note* Diagnosis Pre-op evaluation- Primary Preoperative examination, unspecified Malignant neoplasm of prostate (HCC) Malignant neoplasm of prostate Anxiety and depression Dysthymic disorder LISSETTE (obstructive sleep apnea) Obstructive sleep apnea (adult) (pediatric) 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 Long-term (current) use of anticoagulants Atypical atrial flutter (HCC) Atrial flutter Persistent atrial fibrillation (HCC) Atrial fibrillation Coronary artery disease, unspecified vessel or lesion type, unspecified whether angina present, unspecified whether [place] or transplanted heart Hypertension, unspecified type Dyslipidemia Other and unspecified hyperlipidemia S/P mitral valve repair Other postprocedural status Tricuspid valve insufficiency, unspecified etiology Systolic dysfunction Heart disease, unspecified Gross hematuria- Primary Malignant neoplasm of prostate (HCC) Malignant neoplasm of prostate documented in this encounter [facility] note* Diagnosis Pre-op evaluation- Primary Preoperative examination, unspecified Malignant neoplasm of prostate (HCC) Malignant neoplasm of prostate Anxiety and depression Dysthymic disorder LIS[place]TE (obstructive sleep apnea) Obstructive sleep apnea (adult) (pediatric) detention (current) use of anticoagulants Long-term (current) use of anticoagulants Atypical atrial flutter (HCC) Atrial flutter Persistent atrial fibrillation (HCC) Atrial fibrillation Coronary artery disease, unspecified vessel or lesion type, unspecified whether angina present, unspecified whether [place] or transplanted heart Hypertension, unspecified type Dyslipidemia Other and unspecified hyperlipidemia S/P mitral valve repair Other postprocedural status Tricuspid valve insufficiency, unspecified etiology Systolic dysfunction Heart disease, unspecified Persistent atrial fibrillation (HCC)- Primary Atrial fibrillation At risk for stroke Other specified personal history presenting hazards to health At risk for bleeding associated with anticoagulants Gross hematuria documented in this encounter [facility] note* Diagnosis Pre-op evaluation- Primary Preoperative examination, unspecified Malignant neoplasm of prostate (HCC) Malignant neoplasm of prostate Anxiety and depression Dysthymic disorder LIS[place] (obstructive sleep apnea) Obstructive sleep apnea (adult) (pediatric) detention (current) use of anticoagulants Long-term (current) use of anticoagulants Atypical atrial flutter (HCC) Atrial flutter Persistent atrial fibrillation (HCC) Atrial fibrillation Coronary artery disease, unspecified vessel or lesion type, unspecified whether angina present, unspecified whether [place] or transplanted heart Hypertension, unspecified type Dyslipidemia Other and unspecified hyperlipidemia S/P mitral valve repair Other postprocedural status Tricuspid valve insufficiency, unspecified etiology Systolic dysfunction Heart disease, unspecified Preop exam for internal medicine- Primary Other specified pre-operative examination Persistent atrial fibrillation (HCC) Atrial fibrillation At risk for bleeding associated with anticoagulants Gross hematuria Primary hypertension Unspecified essential hypertension IFG (impaired fasting glucose) Impaired fasting glucose Encounter for long-term current use of medication Bradycardia Other specified cardiac dysrhythmias Recurrent hematuria Inguinal hernia of left side without obstruction or gangrene documented in this encounter [facility] note* Diagnosis Pre-op evaluation- Primary Preoperative examination, unspecified Malignant neoplasm of prostate (HCC) Malignant neoplasm of prostate Anxiety and depression Dysthymic disorder LIS[place]TE (obstructive sleep apnea) Obstructive sleep apnea (adult) (pediatric) 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 Long-term (current) use of anticoagulants Atypical atrial flutter (HCC) Atrial flutter Persistent atrial fibrillation (HCC) Atrial fibrillation Coronary artery disease, unspecified vessel or lesion type, unspecified whether angina present, unspecified whether [place] or transplanted heart Hypertension, unspecified type Dyslipidemia Other and unspecified hyperlipidemia S/P mitral valve repair Other postprocedural status Tricuspid valve insufficiency, unspecified etiology Systolic dysfunction Heart disease, unspecified Persistent atrial fibrillation (HCC) Atrial fibrillation At risk for stroke Other specified personal history presenting hazards to health At risk for bleeding associated with anticoagulants Gross hematuria 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 Long-term (current) use of anticoagulants Atypical atrial flutter (HCC) Atrial flutter Persistent atrial fibrillation (HCC) Atrial fibrillation Coronary artery disease, unspecified vessel or lesion type, unspecified whether angina present, unspecified whether [place] or transplanted heart Hypertension, unspecified type Dyslipidemia Other and unspecified hyperlipidemia S/P mitral valve repair Other postprocedural status Tricuspid valve insufficiency, unspecified etiology Systolic dysfunction Heart disease, unspecified IFG (impaired fasting glucose)- Primary Impaired fasting glucose Primary hypertension Unspecified essential hypertension Persistent atrial fibrillation (HCC) Atrial fibrillation Dyslipidemia Other and unspecified hyperlipidemia Encounter for long-term current use of medication documented in this encounter [facility] note* Diagnosis Pre-op evaluation- Primary Preoperative examination, unspecified Malignant neoplasm of prostate (HCC) Malignant neoplasm of prostate Anxiety and depression Dysthymic disorder LIS[place]TE (obstructive sleep apnea) Obstructive sleep apnea (adult) (pediatric) 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 Long-term (current) use of anticoagulants Atypical atrial flutter (HCC) Atrial flutter Persistent atrial fibrillation (HCC) Atrial fibrillation Coronary artery disease, unspecified vessel or lesion type, unspecified whether angina present, unspecified whether [place] or transplanted heart Hypertension, unspecified type Dyslipidemia Other and unspecified hyperlipidemia S/P mitral valve repair Other postprocedural status Tricuspid valve insufficiency, unspecified etiology Systolic dysfunction Heart disease, unspecified Persistent atrial fibrillation (HCC)- Primary Atrial fibrillation S/P mitral valve repair Other postprocedural status detention (current) use of anticoagulants Long-term (current) use of anticoagulants At risk for stroke Other specified personal history presenting hazards to health Sinus node dysfunction (HCC) Sinoatrial node dysfunction LISSETTE (obstructive sleep apnea) Obstructive sleep apnea (adult) (pediatric) At risk for bleeding associated with anticoagulants Encounter for follow-up surveillance of prostate cancer- Primary Unspecified follow-up examination Erectile dysfunction, unspecified erectile dysfunction type Prostate cancer (HCC) Malignant neoplasm of prostate Preop examination- Primary Preoperative examination, unspecified Persistent atrial fibrillation (HCC) Atrial fibrillation Essential (primary) hypertension Unspecified essential hypertension Coronary artery disease involving [place] coronary artery of [place] heart without angina pectoris LISSETTE (obstructive sleep apnea) Obstructive sleep apnea (adult) (pediatric) Dyslipidemia 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 unspecified hyperlipidemia 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 Long-term (current) use of anticoagulants MVP (mitral valve prolapse) Mitral valve disorders Gastroesophageal reflux disease without esophagitis Esophageal reflux Erectile dysfunction, unspecified erectile dysfunction type Prostate cancer (HCC) Malignant neoplasm of prostate Persistent atrial fibrillation (HCC) Atrial fibrillation At risk for stroke Other specified personal history presenting hazards to health At risk for bleeding associated with anticoagulants Gross hematuria documented in this encounter [facility] note* Diagnosis Pre-op evaluation- Primary Preoperative examination, unspecified Malignant neoplasm of prostate (HCC) Malignant neoplasm of prostate Anxiety and depression Dysthymic disorder LISSETTE (obstructive sleep apnea) Obstructive sleep apnea (adult) (pediatric) detention (current) use of anticoagulants Long-term (current) use of anticoagulants Atypical atrial flutter (HCC) Atrial flutter Persistent atrial fibrillation (HCC) Atrial fibrillation Coronary artery disease, unspecified vessel or lesion type, unspecified whether angina present, unspecified whether [place] or transplanted heart Hypertension, unspecified type Dyslipidemia Other and unspecified hyperlipidemia S/P mitral valve repair Other postprocedural status Tricuspid valve insufficiency, unspecified etiology Systolic dysfunction Heart disease, unspecified Preop examination- Primary Preoperative examination, unspecified Persistent atrial fibrillation (HCC) Atrial fibrillation Essential (primary) hypertension Unspecified essential hypertension Coronary artery disease involving [place] coronary artery of [place] heart without angina pectoris LISSETTE (obstructive sleep apnea) Obstructive sleep apnea (adult) (pediatric) Dyslipidemia Other and unspecified hyperlipidemia 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 Long-term (current) use of anticoagulants MVP (mitral valve prolapse) Mitral valve disorders Gastroesophageal reflux disease without esophagitis Esophageal reflux Erectile dysfunction, unspecified erectile dysfunction type Prostate cancer (HCC) Malignant neoplasm of prostate Presence of Watchman left atrial appendage closure device- Primary Atrial fib/flutter, transient (HCC) Paroxysmal atrial fibrillation (HCC) Atrial fibrillation documented in this encounter [facility] note* Diagnosis Pre-op evaluation- Primary Preoperative examination, unspecified Malignant neoplasm of prostate (HCC) Malignant neoplasm of prostate Anxiety and depression Dysthymic disorder LISSETTE (obstructive sleep apnea) Obstructive sleep apnea (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) (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) 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 Long-term (current) use of anticoagulants Atypical atrial flutter (HCC) Atrial flutter Persistent atrial fibrillation (HCC) Atrial fibrillation Coronary artery disease, unspecified vessel or lesion type, unspecified whether angina present, unspecified whether [place] or transplanted heart Hypertension, unspecified type Dyslipidemia Other and unspecified hyperlipidemia S/P mitral valve repair Other postprocedural status Tricuspid valve insufficiency, unspecified etiology Systolic dysfunction Heart disease, unspecified Preop examination- Primary Preoperative examination, unspecified Persistent atrial fibrillation (HCC) Atrial fibrillation Essential (primary) hypertension Unspecified essential hypertension Coronary artery disease involving [place] coronary artery of [place] heart without angina pectoris LISSETTE (obstructive sleep apnea) Obstructive sleep apnea (adult) (pediatric) Dyslipidemia Other and unspecified hyperlipidemia 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 Long-term (current) use of anticoagulants MVP (mitral valve prolapse) Mitral valve disorders Gastroesophageal reflux disease without esophagitis Esophageal reflux Erectile dysfunction, unspecified erectile dysfunction type Prostate cancer (HCC) Malignant neoplasm of prostate Persistent atrial fibrillation (HCC)- Primary Atrial fibrillation Presence of Watchman left atrial appendage closure device [facility] Diagnosis Pre-op evaluation- Primary Preoperative examination, unspecified Malignant neoplasm of prostate (HCC) Malignant neoplasm of prostate Anxiety and depression Dysthymic disorder LISSETTE (obstructive sleep apnea) Obstructive sleep apnea (adult) (pediatric) detention (current) use of anticoagulants Long-term (current) use of anticoagulants Atypical atrial flutter (HCC) Atrial flutter Persistent atrial fibrillation (HCC) Atrial fibrillation Coronary artery disease, unspecified vessel or lesion type, unspecified whether angina present, unspecified whether [place] or transplanted heart Hypertension, unspecified type Dyslipidemia Other and unspecified hyperlipidemia S/P mitral valve repair Other postprocedural status Tricuspid valve insufficiency, unspecified etiology Systolic dysfunction Heart disease, unspecified Screening for genitourinary condition Screening for other and unspecified genitourinary condition Preop examination- Primary Preoperative examination, unspecified Persistent atrial fibrillation (HCC) Atrial fibrillation Essential (primary) hypertension Unspecified essential hypertension Coronary artery disease involving [place] coronary artery of [place] heart without angina pectoris LISSETTE (obstructive sleep apnea) Obstructive sleep apnea (adult) (pediatric) Dyslipidemia Other and unspecified hyperlipidemia detention (current) use of anticoagulants Long-term (current) use of anticoagulants MVP (mitral valve prolapse) Mitral valve disorders Gastroesophageal reflux disease without esophagitis Esophageal reflux Erectile dysfunction, unspecified erectile dysfunction type Prostate cancer (HCC) Malignant neoplasm of prostate Persistent atrial fibrillation (HCC) Atrial fibrillation Presence of Watchman left atrial appendage closure device [facility] Diagnosis Onset Date Resolution Status Admit Date Essential (primary) hypertension acute January 19 10:05am Presence of Watchman left atrial appendage closure device 2024 acute January 19 10:05am Dyslipidemia chronic January 10:05am Paroxysmal atrial fibrillation chronic January 19 10:05am History of mitral valve repair October 04, 2000 resolved January 19 10:05am [facility] Work Phone: Progress note Author Rocky Nelson [facility] Note Date/Time January 19, 2025 1 0:34am [facility] [id number] [facility] [address] [place] [address] OFFICE VISIT Date of Service: 01/19/25 MR#: [id number] Acct: [id number] Name: RYLEY MCKEON Rep #: [id number] : 1945 Provider: Dr. Trnet Nelson MD Age/Sex: 79/M [place] [facility] [place] Status: Signed HPI HPI History of Present Illness Details: RYLEY MCKEON, is a 79M who presents to the office today for a follow-up visit. He is a gentleman with a history of mitral valve disease status post mitral valve repair for mitral valve prolapse in 2000 at the [facility]. He had presented a while ago with atrial flutter for which she underwent YURIDIA guided cardioversion and repeat cardioversion. 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 He sought the EP doctors at [facility] and it was decided to pursue expectant therapy. He has done wellsince. He did have an echocardiogram performed in 2021 which demonstrated stable ejection fraction of 60% and stable status post mitral valve repair with an annuloplasty ring. He had transesophageal echocardiogram and cardioversion on04/06/2024. He presented to office on 04/13/2024 for a post cardioversion ECG. This showed sinus bradycardia at a rate of 46 bpm. His metoprolol was placed onhold. On 04/17/2024 he underwent repeat ECG that showed atrial fibrillation at arate of 120 bpm. He was seen with [facility], electrophysiology team, Dr. Guzman on 05/15/2024. He was scheduled for and underwent a Watchman device placement in November 2024 followed by DC cardioversion. He was taken off his anticoagulation and put on aspirin and Plavix. He is having some bruising there. He tells me that they are moving to [place] and he want to establish with a group work program aide in that area. He denies chest, arm, jaw, or neck discomfort. He acknowledges palpitations that he describes as a flutter sensation. He denies bilateral lower extremity edema. He denies claudication. He states shortness of breath with activity such as talking. He denies shortness of breath at rest, orthopnea, or PND. He denies chronic cough. He denies significant, sudden weight gain. He denies lightheadedness, dizziness, near-syncope, or syncope. He denies blood in urine,blood in stool, or epistaxis. He denies fever with chills. He denies myalgia. He states fatigue. His exercise level has remained stable. 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: No Accompanied by: Significant Other Is patient in pain?: No Allergies hydrocodone (From Vicodin) Allergy (Mild, Verified 01/19/25 10:13) Nausea oxycodone (From Percocet) Adverse Reaction (Intermediate, Verified 01/19/25 10:13) nausea Medications ?Medication ?Instructions ?Recorded ?Confirmed ?Type multivitamin with folic acid 400 1 tab PO DAILY 01/19/25 History mcg tablet bupropion HCl 300 mg 24 hr tablet, 300 mg PO QAM 07/0501/19/25 History extended release triamcinolone acetonide 55 mcg 2 spray intranasal QDAY 09/24/17 01/19/25 History nasal spray aerosol (Nasacort) coenzyme Q10 100 mg capsule 100 mg PO DAILY 08/21/19 1 History zinc 50 mg tablet 50 mg PO DAILY 08/23/2001/06 History biotin 5 mg capsule 5 mg PO DAILY 10/16/2201/19 History losartan 50 mg tablet 50 mg PO DAILY #90 tabs 06/0101/19/25 Rx amoxicillin 500 mg capsule 2,000 mg PO ONCE PRN 01/19/25 History lorazepam 0.5 mg tablet 0.25 mg PO DAILY PRN PRN Anx iety 07/22/24 01/19/25 History atorvastatin 40 mg tablet 40 mg PO QHS #90 TABLETS 01/19/25 Rx aspirin 81 mg tablet,delayed 81 mg PO QDAY 01/19/25 History release (Adult Aspirin Regimen) clopidogrel 75 mg tablet (Plavix) 75 mg PO DAILY To di scontinue 01/19/25 01/19/25 History Xarelto. Have you fallen in the past year?: No PFSH Medical History Nonobstructive atherosclerosis of coronary artery Myxomatous mitral valve regurgitation Nonrheumatic mitral (valve) prolapse Atypical atrial flutter Prostate cancer Paroxysmal atrial fibrillation Essential (primary) hypertension Obstructive sleep apnea Hypersomnia, unspecified Depression Dyslipidemia Surgical History (Updated 01/19/25 @ 10:[address] Rocky Nelson MD) Presence of Watchman left atrial appendage closure device (~11/2024) H/O transurethral destruction of bladder lesion (10/2013) History of cardioversion (04/06/24) History of left heart catheterization (06/23/08) Macular hole repair Hx of cataract surgery Retinal detachment PE Tube right ear H/O prostate biopsy Left knee meniscus repair H/O inguinal hernia repair History of mitral valve repair (10/04/00) Family History Father , age 89 CAD (coronary artery disease) Hx of CABG, Onset Age: 68 Uncle CAD (coronary artery disease) Mother Alzheimers disease Social History household members: spouse housing: house current occupational status: employed current occupation: [employer] pets and animals: Yes pets and animals: dog(s) Smoking Status: Former smoker second hand exposure: No alcohol intake: current alcohol intake frequency: a few times a week Alcohol type: beer and wine substance use type: does not use ROS Const Const: Negative for fatigue, weakness, daytime sleepiness or difficulty sleeping ENT ENT: Negative for dizziness or Nosebleed/epistaxis Cardio Chest Pain: No Palpitations: Yes (infrequently) Edema: None Resp Respiratory: Negative for SOB with activity, SOB at rest, SOB orthopnea\SOB lying down or Cough GI GI: Negative nausea, vomiting or heartburn Neuro Neuro: Negative for dizziness, lightheadedness, near syncope or weakness Endo Endo: Negative for fatigue Cardiology Exam Const Appearance: cooperative, healthy appearing, comfortable and no acute distress Nutritional Appearance: average body habitus and well nourished Orientation: alert, awake and oriented x3 Head Head: normal to inspection Ears: hearing grossly normal bilaterally Nose: external nose normal Face and Sinus: face symmetric Mouth: moist mucous membranes Eyes General: appearance normal, both eyes and all related structures Eyelids: eyelids normal EOM: EOM intact bilaterally Neck Neck: normal visual inspection and no JVD Carotids: normal carotid upstroke Chest Chest inspection: normal inspection of the chest, symmetric chest movement and normal respiratory effort; Negative cough Auscultation: Bilateral: Clear to Auscultation Cardio Rate: bradycardic; Negative regular rate Rhythm: irregularly irregular Heart sounds: S1 normal and S2 normal; Negative rub, gallop or murmur GI GI: normal to inspection Neuro General: patient alert, patient awake, patient oriented x3 and CN's II-XI intactbilaterally Skin Skin: no rashes or lesions noted Extremities Pulses: Normal: Right Posterior Tibial Pulse, Left Posterior Tibial Pulse, RightRadial Pulse and Left Radial Pulse Lower Extremity Edema: None: Bilateral Psych Psychological: normal affect Supplemental Info Supplemental Information Echocardiogram 09/19/2021 Interpretation Summary Status post mitral valve repair with annuloplasty ring. Normal LV size. Left ventricular systolic function is normal. The estimated ejection fraction is 60 %. Pulmonary artery systolic pressure is 24 mmHg. Stage 2 diastolic dysfunction. ECHOCARDIOGRAM 09/15/2019 Interpretation Summary Status post mitral valve repair with annuloplasty ring. Normal LV size. The estimated ejection fraction is 55 %. Mild tricuspid valve insufficiency. Compared to prior study, there is no significant change. ECHO/Echo Transesophageal (YURIDIA) 04/06/24: Interpretation Summary The left atrium is mildly enlarged. Normal LV size. Left ventricular systolic function is normal. The left ventricular ejection fraction is 50 %. Bubble contrast study is negative for PFO/ASD. No thrombus is detected in the left atrial appendage. There is mild sponatenous contrast in the left atrium. Head/Neck CTA 01/11/23 IMPRESSION: Minimal calcific plaque is seen at the origin of the left and right internal carotid arteries. Abd Aorta US 01/22/23 ([facility]) Impression Atherosclerotic plaque and mural thrombus. No evidence of abdominal aortic aneurysm. Diagnostics: Electrocardiogram Echocardiogram Transesophageal Echocardiogram Chest X-Ray Past Visits: Cardiology Visit Today Assessment and Plan Assessment and Plan (1) Paroxysmal atrial fibrillation: Status: Chronic Plan: [id number] score: 3 (age +2, HTN) (3.2% stroke risk) Atrial fibrillation stage: 3A, paroxysmal Cardioversion: 04/06/2024 12 Lead EC04/17/2024-atrial fibrillation 120 bpm Transesophageal echocardiogram: 04/06/2024- EF: 50%, mildly enlarged left atrium, normal right atrium size Heart Rate Control: Metoprolol tartrate 25 mg p.o. twice daily Anticoagulation/CVA Protection: None (2) History of mitral valve repair: Status: Resolved Comment: 09/2000 Plan: He is status post mitral valve repair in September 2000. This may label him as valvular atrial fibrillation. Transesophageal echocardiogram on 04/06/2024 showed an ejection fraction of 50%, normal LV size, mildly enlarged left atrium,and normal mitral valve. This appears stable. We will continue to monitor. (3) Essential (primary) hypertension: Status: Acute Plan: Patient's blood pressure is well-controlled. We will continue to monitor. We will not make any medication regimen changes. (4) Dyslipidemia: Status: Chronic Plan: He does have a history of hyperlipidemia. He tells me that he had a recent lipid profile performed through your office. You could forward a copy to me I will be most grateful. (5) Presence of Watchman left atrial appendage closure device: Status: Acute Plan: He did have a Watchman device placed and appears to have been doing well. He isno longer on the anticoagulation and is on aspirin and clopidogrel which will bediscontinued as per EP discretion. Plan He plans to relocate to the [place] area and we will assist him in finding an appropriate physician in that region. Plan Details Additional Comments: Thank you for allowing us to participate in the patients plan of care, if you have any questions please do not hesitate to call. Plan was reviewed with patient/family member along with red flag symptoms. Understanding was acknowledged. Questions were answered to apparent satisfaction. This note was generated using a voice recognition system and there may be incorrect words, spelling or punctuation that were not noted when reviewing the office note prior to saving. Portions of this documentation were copied and pasted from previous office visitnotes to provide a cohesive continuity of the history. The note has been reviewed, edited, and updated, as necessary. Follow Up: prn Coding Level of Care Code Off vis,est,level 4 Diagnoses Paroxysmal atrial fibrillation I48.0 History of mitral valve repair Z98.890 Essential (primary) hypertension I10 Dyslipidemia E78.5 Presence of Watchman left atrial appendage closure device Z95.818 Coding Level of Care Code Off vis,est,level 4 Diagnoses Paroxysmal atrial fibrillation I48.0 History of mitral valve repair Z98.890 Essential (primary) hypertension I10 Dyslipidemia E78.5 Presence of Watchman left atrial appendage closure device Z95.818 Clinical Quality Measures Falls Risk Screening/Assistive Devices Have you fallen in the past year?: No 01/19/25 1044 <Electronically signed by Rocky Arceo> Date _ Rocky Nelson MD Cosigner Signature: Date (if applicable) CC: Dr. Johnnie Ross MD ~ [place] [address] Work Phone: Reason for referral (narrative)* Diagnostic Procedure Only (Routine) - Authorized Specialty Diagnoses / Procedures Referred By Dilipac t Referred To Contact [facility] Diagnoses General weakness Encounter for screening for abdominal aortic aneurysm (AAA) in patient 50 years of age or older with history of smoking Procedures US ABD AORTA US RETROPERITONEAL REAL TIME W/IMAGE LIMITED Evangelina Bah APRN.CNP [address] [id number] [place] [address] Referral ID Status Reason Start Date Expiration Date Visits Requested Visits Authorized [id number] Authorized Auto-Generat ed Referral 3 02/14/2024 1 1 [facility] for referral (narrative)* Diagnostic Procedure Only (Routine) - Closed Specialty Diagnoses / Procedures Referred By Delaney t Referred To Contact [facility] Diagnoses General weakness Encounter for screening for abdominal aortic aneurysm (AAA) in patient 50 years of age or older with history of smoking Procedures US ABD AORTA US RETROPERITONEAL REAL TIME W/IMAGE LIMITED Evangelina Bah APRN.CNP [address] [place], [place] [id number] [place] [address] Referral ID Status Reason Start Date Expiration Date V isits Requested Visits Authorized [id number] Closed Auto-Generate d Referral 01/15/2023 02/14/2024 1 1 [facility] for referral (narrative)* Outpatient Procedure (Routine) - New Request Specialty Diagnoses / Procedures Referred By Contac t Referred To [facility] Diagnoses History of mitral valve repair Procedures ECHO ECHO TTHRC R-T 2D W/WOM-MODE COMPL SPEC&COLR D Josefa Rolle APRN.OPERATOR TECHNICIAN [address] [place] [address] [facility] [place] [address] [place] [address] Referral ID Status Reason Start Date Expiration Date Visits Requested Visits Authorized [id number] New Request Auto-Generat ed Referral 4 02/16/2025 1 1 * Consult, Test, Treat (Routine) - Authorized Specialty Diagnoses / Procedures Referred By Delaney t Referred To Contact Cardiology Diagnoses History of mitral valve repair Procedures CONSULT TO CARDIOLOGY OFFICE/OUTPATIENT NEW HIGH MDM 60 MINUTES Josefa Rolle APRN.OPERATOR TECHNICIAN [address] [place] [address] Referral ID Status Reason Start Date Expiration Date Visits Requested Visits Authorized [id number] Authorized PCP Requested Referral 4 02/16/2025 1 1 [facility] for referral (narrative)* Outpatient Procedure (Routine) - New Request Specialty Diagnoses / Procedures Referred By Delaney malave Referred To [facility] Diagnoses Atrial fibrillation and flutter (HCC) Procedures ECG COMPLETE ECG ROUTINE ECG W/LEAST 12 LDS W/I&R Johnnie Ross MD [address] [place] [address] [facility] [place] [address] [place] [address] Referral ID Status Reason Start Date Expiration Date Visits Requested Visits Authorized [id number] New Request Auto-Generat ed Referral 4 04/02/2025 1 1 [facility] for referral (narrative)No reason for referral information [facility] Work Phone: Reason for visit Narrative* Diagnostic Procedure Only (Routine) - Closed Specialty Diagnoses / Procedures Referred By Delaney malave Referred To Contact [facility] Diagnoses General weakness Encounter for screening for abdominal aortic aneurysm (AAA) in patient 50 years of age or older with history of smoking Procedures US ABD AORTA US RETROPERITONEAL REAL TIME W/IMAGE LIMITED Evangelina Bah APRN.HOME HEALTH CLINICIAN [address] [place] [address] [place] [address] Referral ID Status Reason Start Date Expiration Date V isits Requested Visits Authorized [id number] Closed Auto-Generate d Referral 01/15/2023 02/14/2024 1 1 [facility] MRI/CT (Routine) - Closed Specialty Diagnoses / Procedures Referred By Delaney t Referred To Contact CT IMAG[facility] Diagnoses Persistent atrial fibrillation (HCC) At risk for stroke At risk for bleeding associated with anticoagulants Gross hematuria Procedures CTA CHEST (GATED) WO/W IVCON CT ANGIOGRAPHY CHEST W/CONTRAST/NONCONTRAST Trey Guzman MD [address] [place] [address] Phone: tel: fax: [place] [address] Referral ID Status Reason Start Date Expiration Date V isits Requested Visits Authorized [id number] Closed Auto-Generate d Referral 06/06/2024 07/06/2025 1 1 [facility] Summary Purpose Family History No Family History Records Found Relationship Condition Age at Onset Recorded Date/T mary father Coronary artery disease Unknown History of coronary artery bypass surgery 68 uncle Coronary artery disease Unknown mother Alzheimer's disease Unknown Advance Directives No Advanced Directives Records FoundDocuments on File Type Date Recorded Patient Digital Associate Expl anation Advance Directive(s) 05/22/2021 12:55 PM Documents on File Type Date Recorded Patient Digital Associate Expl anation Advance Directive(s) 07/10/2021 1:09 PM Advance Directive(s) 05/22/2021 12:55 PM Advance Directive Response Recorded Date/ Time Advance Directives Yes April 30, 2017 12:11pm Living Will Yes April 30 12:11pm Power of Carrot Grader Inspector Yes April 30, 2017 12:11pm Documents on File Type Date Recorded Patient Digital Associate Expl anation Advance Directive(s) 07/10/2021 1:09 PM Documents on File Type Date Recorded Patient Digital Associate Expl anation Advance Directive(s) 07/10/2021 1:09 PM Advance Directive Response Recorded Date/ Time Living Will Yes April 30 12:11pm Do you have a Healthcare Power of Carrot Grader Inspector? Yes April 30, 2017 12:11pm Advance Directives Yes March 10:26am Chief Complaint and Reason for Visit Chief Complaint 1 Y FU MURMUR Reason for Visit Essential (primary) hypertension Dyslipidemia Paroxysmal atrial fibrillation History of mitral valve repair Chief Complaint Admit Date 1 y fu w INVENTORY AND PRICING ASSOCIATE per INVENTORY AND PRICING ASSOCIATE January 19, 2025 10:05am Reason for Visit Admit Date Essential (primary) hypertension January 19, 2025 10:05am Presence of Watchman left atrial appenda ge closure device January 19, 2025 10:05am Dyslipidemia January 19, 2025 1 0:05am Paroxysmal atrial fibrillation January 062024 10:05am History of mitral valve repair January 062024 10:05am Reason for Referral Specialty Diagnoses / Procedures Referred By Contac t Referred To Contact Diagnoses LISSETTE (obstructive sleep apnea) Procedures CONSULT TO SLEEP MEDICINE - ADULT OFFICE/OUTPATIENT [facility] 60-74 MINUTES Josefa Rolle, CLOTH WASHER OPERATOR.OPERATOR TECHNICIAN [address] [place] [address] Referral ID Status Reason Start Date Expiration Date Visits Requested Visits Authorized [id number] Authorized PCP Requested Referral 3 02/26/2024 1 1 Specialty Diagnoses / Procedures Referred By Delaney t Referred To Contact CT IMAGING Diagnoses Gross hematuria Procedures CT UROGRAM WO/W IVCON CT ABD & PELVIS W/WO CONTRST 1+ BODY Kash Polanco PA [address] [place] [address] [place] [address] Referral ID Status Reason Start Date Expiration Date Visits Requested Visits Authorized [id number] New Request Auto-Generat ed Referral 05/04/2024 06/03/2025 1 1 Additional Source Comments (unrecognized sect ion and content) No Status Records FoundNo Status Records FoundNo Status Records FoundNo Status Records FoundNo Status Records FoundNo Status Records FoundNo Status Records FoundNo Status Records Found INFORMATION SOURCE (unrecogn ized section and content) DATE CREATED AUTHOR 09/27/2017 [facility] DATE CREATED AUTHOR AUTHOR'S ORGANIZ ATION 12/24/2020 [facility] DATE CREATED AUTHOR AUTHOR'S ORGANIZ ATION 04/28/2021 [facility] DATE CREATED AUTHOR AUTHOR'S ORGANIZ ATION 06/14/2021 [facility] DATE CREATED AUTHOR AUTHOR'S ORGANIZ ATION 06/16/2021 [facility] DATE CREATED AUTHOR AUTHOR'S ORGANIZ ATION 01/20/2025 [facility] DATE CREATED AUTHOR AUTHOR'S ORGANIZ ATION 02/17/2025 [facility] DATE CREATED AUTHOR AUTHOR'S ORGANIZ ATION 02/18/2025 [facility] Source Comments (unrecognize d section and content) In the event this informatio n is protected by the Federal Confidentiality of Alcohol and Drug Abuse Patient Records regulations: The Federal rules restrict any use of the information to criminally investigate or prosecute any alcohol or drug abuse patient.[facility] the event this information is protected by the Federal Confidentiality of Alcohol and Drug Abuse Patient Records regulations: The Federal rules restrict any use of the information to criminally investigate or prosecute any alcohol or drug abuse patient.[facility] the event this information is protected by the Federal Confidentiality of Alcohol and Drug Abuse Patient Records regulations: The Federal rules restrict any use of the information to criminally investigate or prosecute any alcohol or drug abuse patient.[facility]In the event this information is protected by the Federal Confidentiality of Alcohol and Drug Abuse Patient Records regulations: The Federal rules restrict any use of the information to criminally investigate or prosecute any alcohol or drug abuse patient.[facility] the event this information is protected by the Federal Confidentiality of Alcohol and Drug Abuse Patient Records regulations: The Federal rules restrict any use of the information to criminally investigate or prosecute any alcohol or drug abuse patient.[facility] the event this information is protected by the Federal Confidentiality of Alcohol and Drug Abuse Patient Records regulations: The Federal rules restrict any use of the information to criminally investigate or prosecute any alcohol or drug abuse patient.[facility] HospitalIn the event this information is protected by the Federal Confidentiality of Alcohol and Drug Abuse Patient Records regulations: The Federal rules restrict any use of the information to criminally investigate or prosecute any alcohol or drug abuse patient.[facility] HospitalIn the event this information is protected by the Federal Confidentiality of Alcohol and Drug Abuse Patient Records regulations: The Federal rules restrict any use of the information to criminally investigate or prosecute any alcohol or drug abuse patient.[facility] HospitalIn the event this information is protected by the Federal Confidentiality of Alcohol and Drug Abuse Patient Records regulations: The Federal rules restrict any use of the information to criminally investigate or prosecute any alcohol or drug abuse patient.[facility] HospitalIn the event this information is protected by the Federal Confidentiality of Alcohol and Drug Abuse Patient Records regulations: The Federal rules restrict any use of the information to criminally investigate or prosecute any alcohol or drug abuse patient.[facility] HospitalIn the event this information is protected by the Federal Confidentiality of Alcohol and Drug Abuse Patient Records regulations: The Federal rules restrict any use of the information to criminally investigate or prosecute any alcohol or drug abuse patient.[facility] HospitalIn the event this information is protected by the Federal Confidentiality of Alcohol and Drug Abuse Patient Records regulations: The Federal rules restrict any use of the information to criminally investigate or prosecute any alcohol or drug abuse patient.[facility] HospitalIn the event this information is protected by the Federal Confidentiality of Alcohol and Drug Abuse Patient Records regulations: The Federal rules restrict any use of the information to criminally investigate or prosecute any alcohol or drug abuse patient.[facility] HospitalIn the event this information is protected by the Federal Confidentiality of Alcohol and Drug Abuse Patient Records regulations: The Federal rules restrict any use of the information to criminally investigate or prosecute any alcohol or drug abuse patient.[facility] HospitalIn the event this information is protected by the Federal Confidentiality of Alcohol and Drug Abuse Patient Records regulations: The Federal rules restrict any use of the information to criminally investigate or prosecute any alcohol or drug abuse patient.[facility] HospitalIn the event this information is protected by the Federal Confidentiality of Alcohol and Drug Abuse Patient Records regulations: The Federal rules restrict any use of the information to criminally investigate or prosecute any alcohol or drug abuse patient.[facility] HospitalIn the event this information is protected by the Federal Confidentiality of Alcohol and Drug Abuse Patient Records regulations: The Federal rules restrict any use of the information to criminally investigate or prosecute any alcohol or drug abuse patient.[facility] HospitalIn the event this information is protected by the Federal Confidentiality of Alcohol and Drug Abuse Patient Records regulations: The Federal rules restrict any use of the information to criminally investigate or prosecute any alcohol or drug abuse patient.[facility] HospitalIn the event this information is protected by the Federal Confidentiality of Alcohol and Drug Abuse Patient Records regulations: The Federal rules restrict any use of the information to criminally investigate or prosecute any alcohol or drug abuse patient.[facility] HospitalIn the event this information is protected by the Federal Confidentiality of Alcohol and Drug Abuse Patient Records regulations: The Federal rules restrict any use of the information to criminally investigate or prosecute any alcohol or drug abuse patient.[facility] HospitalIn the event this information is protected by the Federal Confidentiality of Alcohol and Drug Abuse Patient Records regulations: The Federal rules restrict any use of the information to criminally investigate or prosecute any alcohol or drug abuse patient.[facility] HospitalIn the event this information is protected by the Federal Confidentiality of Alcohol and Drug Abuse Patient Records regulations: The Federal rules restrict any use of the information to criminally investigate or prosecute any alcohol or drug abuse patient.[facility] HospitalIn the event this information is protected by the Federal Confidentiality of Alcohol and Drug Abuse Patient Records regulations: The Federal rules restrict any use of the information to criminally investigate or prosecute any alcohol or drug abuse patient.[facility] HospitalIn the event this information is protected by the Federal Confidentiality of Alcohol and Drug Abuse Patient Records regulations: The Federal rules restrict any use of the information to criminally investigate or prosecute any alcohol or drug abuse patient.[facility] HospitalIn the event this information is protected by the Federal Confidentiality of Alcohol and Drug Abuse Patient Records regulations: The Federal rules restrict any use of the information to criminally investigate or prosecute any alcohol or drug abuse patient.[facility] HospitalIn the event this information is protected by the Federal Confidentiality of Alcohol and Drug Abuse Patient Records regulations: The Federal rules restrict any use of the information to criminally investigate or prosecute any alcohol or drug abuse patient.[facility] HospitalIn the event this information is protected by the Federal Confidentiality of Alcohol and Drug Abuse Patient Records regulations: The Federal rules restrict any use of the information to criminally investigate or prosecute any alcohol or drug abuse patient.[facility] HospitalIn the event this information is protected by the Federal Confidentiality of Alcohol and Drug Abuse Patient Records regulations: The Federal rules restrict any use of the information to criminally investigate or prosecute any alcohol or drug abuse patient.[facility] HospitalIn the event this information is protected by the Federal Confidentiality of Alcohol and Drug Abuse Patient Records regulations: The Federal rules restrict any use of the information to criminally investigate or prosecute any alcohol or drug abuse patient.[facility] HospitalIn the event this information is protected by the Federal Confidentiality of Alcohol and Drug Abuse Patient Records regulations: The Federal rules restrict any use of the information to criminally investigate or prosecute any alcohol or drug abuse patient.[facility] HospitalIn the event this information is protected by the Federal Confidentiality of Alcohol and Drug Abuse Patient Records regulations: The Federal rules restrict any use of the information to criminally investigate or prosecute any alcohol or drug abuse patient.[facility] HospitalIn the event this information is protected by the Federal Confidentiality of Alcohol and Drug Abuse Patient Records regulations: The Federal rules restrict any use of the information to criminally investigate or prosecute any alcohol or drug abuse patient.[facility] HospitalIn the event this information is protected by the Federal Confidentiality of Alcohol and Drug Abuse Patient Records regulations: The Federal rules restrict any use of the information to criminally investigate or prosecute any alcohol or drug abuse patient.[facility] HospitalIn the event this information is protected by the Federal Confidentiality of Alcohol and Drug Abuse Patient Records regulations: The Federal rules restrict any use of the information to criminally investigate or prosecute any alcohol or drug abuse patient.[facility] HospitalIn the event this information is protected by the Federal Confidentiality of Alcohol and Drug Abuse Patient Records regulations: The Federal rules restrict any use of the information to criminally investigate or prosecute any alcohol or drug abuse patient.[facility] HospitalIn the event this information is protected by the Federal Confidentiality of Alcohol and Drug Abuse Patient Records regulations: The Federal rules restrict any use of the information to criminally investigate or prosecute any alcohol or drug abuse patient.[facility] HospitalIn the event this information is protected by the Federal Confidentiality of Alcohol and Drug Abuse Patient Records regulations: The Federal rules restrict any use of the information to criminally investigate or prosecute any alcohol or drug abuse patient.[facility] HospitalIn the event this information is protected by the Federal Confidentiality of Alcohol and Drug Abuse Patient Records regulations: The Federal rules restrict any use of the information to criminally investigate or prosecute any alcohol or drug abuse patient.[facility] HospitalIn the event this information is protected by the Federal Confidentiality of Alcohol and Drug Abuse Patient Records regulations: The Federal rules restrict any use of the information to criminally investigate or prosecute any alcohol or drug abuse patient.[facility] HospitalIn the event this information is protected by the Federal Confidentiality of Alcohol and Drug Abuse Patient Records regulations: The Federal rules restrict any use of the information to criminally investigate or prosecute any alcohol or drug abuse patient.[facility] HospitalIn the event this information is protected by the Federal Confidentiality of Alcohol and Drug Abuse Patient Records regulations: The Federal rules restrict any use of the information to criminally investigate or prosecute any alcohol or drug abuse patient.[facility] HospitalIn the event this information is protected by the Federal Confidentiality of Alcohol and Drug Abuse Patient Records regulations: The Federal rules restrict any use of the information to criminally investigate or prosecute any alcohol or drug abuse patient.[facility] HospitalIn the event this information is protected by the Federal Confidentiality of Alcohol and Drug Abuse Patient Records regulations: The Federal rules restrict any use of the information to criminally investigate or prosecute any alcohol or drug abuse patient.[facility] HospitalIn the event this information is protected by the Federal Confidentiality of Alcohol and Drug Abuse Patient Records regulations: The Federal rules restrict any use of the information to criminally investigate or prosecute any alcohol or drug abuse patient.[facility] HospitalIn the event this information is protected by the Federal Confidentiality of Alcohol and Drug Abuse Patient Records regulations: The Federal rules restrict any use of the information to criminally investigate or prosecute any alcohol or drug abuse patient.[facility] HospitalIn the event this information is protected by the Federal Confidentiality of Alcohol and Drug Abuse Patient Records regulations: The Federal rules restrict any use of the information to criminally investigate or prosecute any alcohol or drug abuse patient.[facility] HospitalIn the event this information is protected by the Federal Confidentiality of Alcohol and Drug Abuse Patient Records regulations: The Federal rules restrict any use of the information to criminally investigate or prosecute any alcohol or drug abuse patient.[facility] HospitalIn the event this information is protected by the Federal Confidentiality of Alcohol and Drug Abuse Patient Records regulations: The Federal rules restrict any use of the information to criminally investigate or prosecute any alcohol or drug abuse patient.[facility] HospitalIn the event this information is protected by the Federal Confidentiality of Alcohol and Drug Abuse Patient Records regulations: The Federal rules restrict any use of the information to criminally investigate or prosecute any alcohol or drug abuse patient.[facility] HospitalIn the event this information is protected by the Federal Confidentiality of Alcohol and Drug Abuse Patient Records regulations: The Federal rules restrict any use of the information to criminally investigate or prosecute any alcohol or drug abuse patient.[facility] HospitalIn the event this information is protected by the Federal Confidentiality of Alcohol and Drug Abuse Patient Records regulations: The Federal rules restrict any use of the information to criminally investigate or prosecute any alcohol or drug abuse patient.[facility] HospitalIn the event this information is protected by the Federal Confidentiality of Alcohol and Drug Abuse Patient Records regulations: The Federal rules restrict any use of the information to criminally investigate or prosecute any alcohol or drug abuse patient.[facility] HospitalIn the event this information is protected by the Federal Confidentiality of Alcohol and Drug Abuse Patient Records regulations: The Federal rules restrict any use of the information to criminally investigate or prosecute any alcohol or drug abuse patient.[facility] HospitalIn the event this information is protected by the Federal Confidentiality of Alcohol and Drug Abuse Patient Records regulations: The Federal rules restrict any use of the information to criminally investigate or prosecute any alcohol or drug abuse patient.[facility] the event this information is protected by the Federal Confidentiality of Alcohol and Drug Abuse Patient Records regulations: The Federal rules restrict any use of the information to criminally investigate or prosecute any alcohol or drug abuse patient.[facility] HospitalIn the event this information is protected by the Federal Confidentiality of Alcohol and Drug Abuse Patient Records regulations: The Federal rules restrict any use of the information to criminally investigate or prosecute any alcohol or drug abuse patient.[facility] HospitalIn the event this information is protected by the Federal Confidentiality of Alcohol and Drug Abuse Patient Records regulations: The Federal rules restrict any use of the information to criminally investigate or prosecute any alcohol or drug abuse patient.[facility] HospitalIn the event this information is protected by the Federal Confidentiality of Alcohol and Drug Abuse Patient Records regulations: The Federal rules restrict any use of the information to criminally investigate or prosecute any alcohol or drug abuse patient.[facility] HospitalIn the event this information is protected by the Federal Confidentiality of Alcohol and Drug Abuse Patient Records regulations: The Federal rules restrict any use of the information to criminally investigate or prosecute any alcohol or drug abuse patient.[facility] HospitalIn the event this information is protected by the Federal Confidentiality of Alcohol and Drug Abuse Patient Records regulations: The Federal rules restrict any use of the information to criminally investigate or prosecute any alcohol or drug abuse patient.[facility] HospitalIn the event this information is protected by the Federal Confidentiality of Alcohol and Drug Abuse Patient Records regulations: The Federal rules restrict any use of the information to criminally investigate or prosecute any alcohol or drug abuse patient.[facility] Reason for Visit (unrecogniz ed section and content) Reason Comments Post Radiation Treatment Follow Up Reason Comments Refill Request Reason Comments Established Patient Follow-Up Reason Onset Date Comments Refill Request 08/22/2021 Reason Comments Distance Health Reason Comments Lab order request Reason Comments F/U 6 months Reason Comments Covid Positive Reason Comments Sore Throat ST, CONN and stuffy no se x 1 day-positive for COVID at home Reason Comments Covid Positive At home test this am . Only symptom today is congestion Reason Comments [facility] virtual visit Reason Comments ER F/U Reason Comments ED Follow-up Reason Comments Results Reason Comments F/U 6 Month Reason Comments Follow Up Reason Comments New Patient Evaluation Specialty Diagnoses / Procedures Referred By Contac t Referred To Contact Diagnoses LISSETTE (obstructive sleep apnea) Procedures CONSULT TO SLEEP MEDICINE - ADULT OFFICE/OUTPATIENT [facility] 60-74 MINUTES Josefa Rolle, CLOTH WASHER OPERATOR.OPERATOR TECHNICIAN [address] [place] [address] Referral ID Status Reason Start Date Expiration Date V isits Requested Visits Authorized [id number] Closed PCP Requested Referral 02/26/2023 02/26/2024 1 1 Reason Comments RSV vaccine Reason Comments Orders Reason Comments question on COVID booster Reason Comments F/U 6 months Labs prior Reason Comments [facility] Virtual visit Reason Comments Medicare Wellness Exam Reason Comments Cough Dry cough, laryngiti s x 6 days Reason Comments Medication Request Reason Comments Sore Throat Was sore a week ago went away . Now cough and voice is hoarse Reason Comments Returning Patient's Call Reason Comments CARD New Patient Consult Persistent atri al fibrillation (HCC) Specialty Diagnoses / Procedures Referred By Contac t Referred To Contact Cardiology Diagnoses History of mitral valve repair Procedures CONSULT TO CARDIOLOGY OFFICE/OUTPATIENT [facility] 60 MINUTES RolleJosefa kline, CLOTH WASHER OPERATOR.OPERATOR TECHNICIAN [address] [place] [address] Phone: tel: fax: Referral ID Status Reason Start Date Expiration Date V isits Requested Visits Authorized [id number] Closed PCP Requested Referral 02/17/2024 02/16/2025 [address] Specialty Diagnoses / Procedures Referred By Contac t Referred To Contact CT IMAGING Diagnoses Gross hematuria Procedures CT UROGRAM WO/W IVCON CT ABD & PELVIS W/WO CONTRST 1+ BODY REGNS Vance, Kash, PA [address] [place] [address] Phone: tel: fax: [place] [address] Referral ID Status Reason Start Date Expiration Date V isits Requested Visits Authorized [id number] Closed Auto-Generate d Referral 05/04/2024 06/03/2025 1 1 Reason Comments Cystoscopy-1 Reason Comments Patient Update Reason Comments Cardiac Clearance Reason Comments Pre-Op Exam For procedures appro alfred of pcp Reason Comments Preparations For Procedures Reason Comments Established Patient Post Radiation Treatment Follow Up Reason Onset Date Comments Orders 11/18/2024 Appointment 11/18/2024 Reason Comments Patient Update Reason Comments Nurse Visit EKG Per vero Vazquez Reason Comments Procedure Follow Up Care Teams (unrecognized sec tion and content) Analytics Director Relationship Specialty Start Date End Date Johnnie Ross MD [address] [place], [place] [id number] PCP - General Internal Medicine 05/22/21 Trey Guzman MD [address] [place] [address] Specialty Warper Tender Cardiology 05/28/17 Pool Daly DO [address] [place] [address] Specialty Warper Tender Cardiology 05/28/17 Rocky Nelson [address] [facility] [address] [place], [place] [id number] Specialty Warper Tender Cardiology 05/28/17 Cecil Thomas [address] [place] [address] Specialty Warper Tender Urology 05/28/17 Analytics Director Relationship Specialty Start Date End Date Johnnie Ross MD [address] [place], [place] [id number] PCP - General Internal Medicine 05/22/21 Trey Guzman MD [address] [place] [address] Specialty Warper Tender Cardiology 05/28/17 Pool Daly DO [address] [place] [address] Specialty Warper Tender Cardiology 05/28/17 Omar, Stone [place] [address] [place] [address] Specialty Warper Tender Cardiology 05/28/17 Cecil Thomas Miguel [address] [address] Specialty Warper Tender Urology 05/28/17 Analytics Director Relationship Specialty Start Date End Date Johnnie Ross MD [address] [place] [address] PCP - General Internal Medicine 05/22/21 Trey Guzman MD [address] [place] [address] Specialty Warper Tender Cardiology 05/28/17 Pool Daly, [address] [place] [address] Specialty Warper Tender Cardiology 05/28/17 Omar, [place] S [address] [facility] [address] [place] [address] Specialty Warper Tender Cardiology 05/28/17 Cecil Thomas [address] [address] Specialty Warper Tender Urology 05/28/17 Analytics Director Relationship Specialty Start Date End Date Johnnie Ross MD [address] [place] [address] PCP - General Internal Medicine 05/22/21 Trey Guzman MD [address] [place] [address] Specialty Warper Tender Cardiology 05/28/17 Pool Daly, DO [address] [place] [address] Specialty Warper Tender Cardiology 05/28/17 Omar, Rocky S [address] [place] [address] Specialty Warper Tender Cardiology 05/28/17 Cecil Thomas 546 [facility] [address] [place] [address] Specialty Warper Tender Urology 05/28/17 Analytics Director Relationship Specialty Start Date End Date Johnnie Ross MD [address] [place] [address] PCP - General Internal Medicine 05/22/21 Trey Guzman MD [address] [place] [address] Specialty Warper Tender Cardiology 05/28/17 Pool Daly, DO [address] [place] [address] Specialty Warper Tender Cardiology 05/28/17 Omar, [place] S [address] [facility] [address] [place] [address] Specialty Warper Tender Cardiology 05/28/17 Cecil Thomas 546 [facility] [address] [place] [address] Specialty Warper Tender Urology 05/28/17 Analytics Director Relationship Specialty Start Date End Date Johnnie Ross MD [address] [place] [address] PCP - General Internal Medicine 05/22/21 Trey Guzman MD [address] [place] [address] Specialty Warper Tender Cardiology 05/28/17 Pool Daly DO [address] [place] [address] Specialty Warper Tender Cardiology 05/28/17 Omar, Rocky S [address] [place] [address] Specialty Warper Tender Cardiology 05/28/17 Cecil Thomas [address] [id number] Specialty Warper Tender Urology 05/28/17 Analytics Director Relationship Specialty Start Date End Date Johnnie Ross MD [address] [place] [address] PCP - General Internal Medicine 05/22/21 Trey Guzman MD [address] [place] [address] Specialty Warper Tender Cardiology 05/28/17 Pool Daly, [address] [place] [address] Specialty Warper Tender Cardiology 05/28/17 Omar, Rocky S [address] [place] [address] Specialty Warper Tender Cardiology 05/28/17 Cecil Thomas MD [address] [address] Specialty Warper Tender Urology 05/28/17 Analytics Director Relationship Specialty Start Date End Date Johnnie Ross MD [address] [place] [address] PCP - General Internal Medicine 05/22/21 Trey Guzman MD [address] [place] [address] Specialty Warper Tender Cardiology 05/28/17 Pool Daly, [address] [place] [address] Specialty Warper Tender Cardiology 05/28/17 Omar, Rocky S [address] [place] [address] Specialty Warper Tender Cardiology 05/28/17 Cecil Thomas MD [address] [address] Specialty Warper Tender Urology 05/28/17 Analytics Director Relationship Specialty Start Date End Date Johnnie Ross MD 1740 [place] [address] PCP - General Internal Medicine 05/22/21 Trey Guzman MD [address] [place] [address] Specialty Warper Tender Cardiology 05/28/17 Pool Daly, [address] [place] [address] Specialty Warper Tender Cardiology 05/28/17 Omar, Rocky S [address] [place] [address] Specialty Warper Tender Cardiology 05/28/17 Cecil Thomas MD [address] [address] Specialty Warper Tender Urology 05/28/17 Analytics Director Relationship Specialty Start Date End Date Johnnie Ross MD 1740 [place] [address] PCP - General Internal Medicine 05/22/21 Trey Guzman MD [address] [place] [address] Specialty Warper Tender Cardiology 05/28/17 Pool Daly DO [address] [place] [address] Specialty Warper Tender Cardiology 05/28/17 Omar, [place] S [address] [place] [address] Specialty Warper Tender Cardiology 05/28/17 Cecil Thomas MD 546 [facility] 210 [place] [address] Specialty Warper Tender Urology 05/28/17 Analytics Director Relationship Specialty Start Date End Date Johnnie Ross MD 1740 [place] [address] PCP - General Internal Medicine 05/22/21 Trey Guzman MD [address] [place] [address] Specialty Warper Tender Cardiology 05/28/17 Pool Daly DO [address] [place] [address] Specialty Warper Tender Cardiology 05/28/17 Omar, Rocky S [address] [place] [address] Specialty Warper Tender Cardiology 05/28/17 Cecil Thomas MD 546 [facility] [address] [place] [address] Specialty Warper Tender Urology 05/28/17 Analytics Director Relationship Specialty Start Date End Date Johnnie Ross MD 1740 [place] [address] PCP - General Internal Medicine 05/22/21 Trey Guzman MD [address] [place] [address] Specialty Warper Tender Cardiology 05/28/17 Pool Daly DO [address] [place] [address] Specialty Warper Tender Cardiology 05/28/17 Rocky Nelson [address] [place] [address] Specialty Warper Tender Cardiology 05/28/17 Cecil Thomas MD [address] [place] [address] Specialty Warper Tender Urology 05/28/17 Analytics Director Relationship Specialty Start Date End Date Johnnie Ross MD 1740 [place] [address] PCP - General Internal Medicine 05/22/21 Trey Guzman MD [address] [place] [address] Specialty Warper Tender Cardiology 05/28/17 Pool Daly DO [address] [place] [address] Specialty Warper Tender Cardiology 05/28/17 Rocky Nelson MD [address] [place] [address] Specialty Warper Tender Cardiology 05/28/17 Cecil Thomas MD 546 [facility] [address] [place] [address] Specialty Warper Tender Urology 05/28/17 Analytics Director Relationship Specialty Start Date End Date Johnnie Ross MD [address] [place] [address] PCP - General Internal Medicine 05/22/21 Trey Guzman MD [address] [place] [address] Specialty Warper Tender Cardiology 05/28/17 Pool Daly DO [address] [place] [address] Specialty Warper Tender Cardiology 05/28/17 [place] [address] [place] [address] Specialty Warper Tender Cardiology 05/28/17 Cecil Thomas MD 546 [facility] [address] [place] [address] Specialty Warper Tender Urology 05/28/17 Analytics Director Relationship Specialty Start Date End Date Johnnie Ross MD 1740 [place] [address] PCP - General Internal Medicine 05/22/21 Trey Guzman MD [address] [place] [address] Specialty Warper Tender Cardiology 05/28/17 Pool Daly DO [address] [place] [address] Specialty Warper Tender Cardiology 05/28/17 Rocky Nelson MD [address] [place] [address] Specialty Warper Tender Cardiology 05/28/17 Cecil Thomas MD [address] [place] [address] Specialty Warper Tender Urology 05/28/17 Analytics Director Relationship Specialty Start Date End Date Johnnie Ross MD 1740 [place] [address] PCP - General Internal Medicine 05/22/21 Trey Guzman MD [address] [place] [address] Specialty Warper Tender Cardiology 05/28/17 Pool Daly DO [address] [facility] [address] [place] [address] Specialty Warper Tender Cardiology 05/28/17 Rocky Nelson MD [address] [place] [address] Specialty Warper Tender Cardiology 05/28/17 Cecil Thomas MD [address] [place] [address] Specialty Warper Tender Urology 05/28/17 Analytics Director Relationship Specialty Start Date End Date Johnnie Ross MD 1740 [place] [address] PCP - General Internal Medicine 05/22/21 Trey Guzman MD [address] [place] [address] Specialty Warper Tender Cardiology 05/28/17 Pool Daly DO [address] [place] [address] Specialty Warper Tender Cardiology 05/28/17 Rocky Nelson MD [address] [place] [address] Specialty Warper Tender Cardiology 05/28/17 Cecil Thomas MD 546 [facility] [address] [place] [address] Specialty Warper Tender Urology 05/28/17 Analytics Director Relationship Specialty Start Date End Date Johnnie Ross MD 1740 [facility] [place] [address] PCP - General Internal Medicine 05/22/21 Trey Guzman MD [address] [place] [address] Specialty Warper Tender Cardiology 05/28/17 Pool Daly DO [address] [place] [address] Specialty Warper Tender Cardiology 05/28/17 Rocky Nelson MD [address] [place] [address] Specialty Warper Tender Cardiology 05/28/17 Cecil Thomas MD 546 [facility] [address] [place] [address] Specialty Warper Tender Urology 05/28/17 Analytics Director Relationship Specialty Start Date End Date Johnnie Ross MD [address] [place] [address] PCP - General Internal Medicine 05/22/21 Trey Guzman MD [address] [place] [address] Specialty Warper Tender Cardiology 05/28/17 Pool Daly DO [address] [place] [address] Specialty Warper Tender Cardiology 05/28/17 Rocky Nelson MD [address] [place] [address] [address] [place] [address] Specialty Warper Tender Cardiology 05/28/17 Cecil Thomas MD [address] [place] [address] 210 [place] [address] Specialty Warper Tender Urology 05/28/17 Analytics Director Relationship Specialty Start Date End Date Johnnie Ross MD [address] [place] [address] PCP - General Internal Medicine 05/22/21 Trey Guzman MD [address] [place] [address] Specialty Warper Tender Cardiology 05/28/17 Pool Daly DO [address] [place] [address] Specialty Warper Tender Cardiology 05/28/17 Rocky Nelson MD [address] [place] [address] Specialty Warper Tender Cardiology 05/28/17 Cecil Thomas MD 546 [facility] [place]EV[address] [facility] [address] Specialty Warper Tender Urology 05/28/17 Analytics Director Relationship Specialty Start Date End Date Johnnie Ross MD 1740 [facility] [place] [address] PCP - General Internal Medicine 05/22/21 Trey Guzman MD [address] [place] [address] Specialty Warper Tender Cardiology 05/28/17 Pool Daly DO [address] [place] [address] Specialty Warper Tender Cardiology 05/28/17 Rocky Nelson MD [address] [place] [address] Specialty Warper Tender Cardiology 05/28/17 Cecil Thomas MD [address] [place] [address] [place] [address] Specialty Warper Tender Urology 05/28/17 Analytics Director Relationship Specialty Start Date End Date oJhnnie Ross MD 1740 [facility] [place] [address] PCP - General Internal Medicine 05/22/21 Trey Guzman MD [address] [place] [address] Specialty Warper Tender Cardiology 05/28/17 Pool Daly DO [address] [place] [address] Specialty Warper Tender Cardiology 05/28/17 Rocky Nelson MD [address] [place] [address] Specialty Warper Tender Cardiology 05/28/17 Cecil Thomas MD 546 [facility] 210 [place] [address] Specialty Warper Tender Urology 05/28/17 Analytics Director Relationship Specialty Start Date End Date Johnnie Ross MD [address] [place] [address] PCP - General Internal Medicine 05/22/21 Trey Guzman MD [address] [address] Specialty Warper Tender Cardiology 05/28/17 Pool Daly DO [address] [place] [address] Specialty Warper Tender Cardiology 05/28/17 Rocky Nelson MD [address] [place] [address] Specialty Warper Tender Cardiology 05/28/17 Cecil Thomas MD 546 [facility] [address] [place] [address] Specialty Warper Tender Urology 05/28/17 Analytics Director Relationship Specialty Start Date End Date Johnnie Ross MD [address] [place] [address] PCP - General Internal Medicine 05/22/21 Trey Guzman MD [address] [place] [address] Specialty Warper Tender Cardiology 05/28/17 Pool Daly DO [address] [place] [address] Specialty Warper Tender Cardiology 05/28/17 [place] [address] [place] [address] Specialty Warper Tender Cardiology 05/28/17 Cecil Thomas MD [address] [place] [address] 210 [place] [address] Specialty Warper Tender Urology 05/28/17 Analytics Director Relationship Specialty Start Date End Date Johnnie Ross MD [address] [place] [address] PCP - General Internal Medicine 05/22/21 Trey Guzman MD [address] [place] [address] Specialty Warper Tender Cardiology 05/28/17 Pool Daly DO [address] [place] [address] Specialty Warper Tender Cardiology 05/28/17 Rocky Nelson MD [address] [facility] [address] [place] [address] Specialty Warper Tender Cardiology 05/28/17 Cecil Thomas MD [address] [address] Specialty Warper Tender Urology 05/28/17 Analytics Director Relationship Specialty Start Date End Date Johnnie Ross MD [address] [place] [address] PCP - General Internal Medicine 05/22/21 Trey Guzman MD [address] [address] Specialty Warper Tender Cardiology 05/28/17 Pool Daly DO [address] [address] Specialty Warper Tender Cardiology 05/28/17 Rocky Nelson MD [address] [address] Specialty Warper Tender Cardiology 05/28/17 Cecil Thomas MD [address] [address] Specialty Warper Tender Urology 05/28/17 Josefa Rolle, CLOTH WASHER OPERATOR.OPERATOR TECHNICIAN [address] [place] [address] Wireless Consultant Internal Medicine 03/16/24 Evangelina Bah CLOTH WASHER OPERATOR.HOME HEALTH CLINICIAN [address] [place], [place] [id number] Wireless Consultant Internal Medicine 03/16/24 Analytics Director Relationship Specialty Start Date End Date Johnnie Ross MD [address] [place] [address] PCP - General Internal Medicine 05/22/21 Trey Guzman MD [address] [facility] [address] [place] [address] Specialty Warper Tender Cardiology 05/28/17 Pool Daly DO [address] [facility] [address] [place] [address] Specialty Warper Tender Cardiology 05/28/17 Rocky Nelson MD [address] [place] [address] [address] [place] [address] Specialty Warper Tender Cardiology 05/28/17 Cecil Thomas MD [address] [place] [address] 210 [place] [address] Specialty Warper Tender Urology 05/28/17 Josefa Rolle, CLOTH WASHER OPERATOR.OPERATOR TECHNICIAN [address] [place] [address] Wireless Consultant Internal Medicine 03/16/24 Evangelina Bah, CLOTH WASHER OPERATOR.HOME HEALTH CLINICIAN [address] [place] [address] Wireless Consultant Internal Medicine 03/16/24 Analytics Director Relationship Specialty Start Date End Date Johnnie Ross MD [address] [place] [address] PCP - General Internal Medicine 05/22/21 Trey Guzman MD [address] [facility] [address] [place] [address] Specialty Warper Tender Cardiology 05/28/17 Pool Daly DO [address] [facility] [address] [place] [address] Specialty Warper Tender Cardiology 05/28/17 Rocky Nelson MD [address] [place] [address] [address] [place] [address] Specialty Warper Tender Cardiology 05/28/17 Cecil Thomas MD [address] [place] [address] 210 [place] [address] Specialty Warper Tender Urology 05/28/17 Josefa Rolle, CLOTH WASHER OPERATOR.OPERATOR TECHNICIAN [address] [place] [address] Wireless Consultant Internal Medicine 03/16/24 Evangelina Bah CLOTH WASHER OPERATOR.HOME HEALTH CLINICIAN [address] [place] [address] Wireless Consultant Internal Medicine 03/16/24 Analytics Director Relationship Specialty [place] [address] [place] [address] PCP - General Internal Medicine 05/22/21 Trey Guzman MD [address] [address] Specialty Warper Tender Cardiology 05/28/17 Pool Daly DO [address] [facility] [address] [place] [address] Specialty Warper Tender Cardiology 05/28/17 Rocky Nelson MD [address] [place] [address] Specialty Warper Tender Cardiology 05/28/17 Cecil Thomas MD [address] [address] Specialty Warper Tender Urology 05/28/17 Josefa Rolle, CLOTH WASHER OPERATOR.OPERATOR TECHNICIAN [address] [place] [address] [facility] Internal Medicine 03/16/24 Evangelina Bah, CLOTH WASHER OPERATOR.HOME HEALTH CLINICIAN [address] [place] [address] [facility] Internal Medicine 03/16/24 Analytics Director Relationship Specialty Start Date End Date Johnnie Ross MD [address] [place] [address] PCP - General Internal Medicine 05/22/21 Trey Guzman MD [address] [place] [address] Specialty Warper Tender Cardiology 05/28/17 Pool Daly DO [address] [place] [address] Specialty Warper Tender Cardiology 05/28/17 Rocky Nelson MD [address] [place] [address] Specialty Warper Tender Cardiology 05/28/17 Cecil Thomas MD [address] [address] Specialty Warper Tender Urology 05/28/17 Josefa Rolle, CLOTH WASHER OPERATOR.OPERATOR TECHNICIAN [address] [place] [address] Wireless Consultant Internal Medicine 03/16/24 Evangelina Bah CLOTH WASHER OPERATOR.HOME HEALTH CLINICIAN [address] [place] [address] [facility] Internal Medicine 03/16/24 Analytics Director Relationship Specialty Start Date End Date Johnnie Ross MD [address] [place] [address] PCP - General Internal Medicine 05/22/21 Trey Guzman MD [address] [facility] [address] [place] [address] Specialty Warper Tender Cardiology 05/28/17 Pool Daly DO [address] [address] Specialty Warper Tender Cardiology 05/28/17 Rocky Nelson MD [address] [place] [address] Specialty Warper Tender Cardiology 05/28/17 Cecil Thomas MD [address] [address] Specialty Warper Tender Urology 05/28/17 Josefa Rolle, CLOTH WASHER OPERATOR.OPERATOR TECHNICIAN [address] [place] [address] Wireless Consultant Internal Medicine 03/16/24 Evangelina Bah CLOTH WASHER OPERATOR.HOME HEALTH CLINICIAN [address] [place] [phone] Wireless Consultant Internal Medicine 03/16/24 Analytics Director Relationship Specialty Start Date End Date Johnnie Ross MD [address] [place] [address] PCP - General Internal Medicine 05/22/21 Trey Guzman MD 224 [facility] 225 [place] [address] Specialty Warper Tender Cardiology 05/28/17 Rocky Nelson MD [address] [place] [address] Specialty Warper Tender Cardiology 05/28/17 Cecli Thomas MD 546 [facility] 210 [place] [address] Specialty Warper Tender Urology 05/28/17 Josefa Rolle, CLOTH WASHER OPERATOR.OPERATOR TECHNICIAN [address] [place] [address] [facility] Internal Medicine 03/16/24 Evangelina Bah, CLOTH WASHER OPERATOR.HOME HEALTH CLINICIAN [address] [place] [address] [facility] Internal Medicine 03/16/24 Kenneth Lin MD [address] [place] [address] Specialty Warper Tender Urology 05/15/24 Analytics Director Relationship Specialty [place] [address] [place] [address] PCP - General Internal Medicine 05/22/21 Trey Guzman MD [address] [address] Specialty Warper Tender Cardiology 05/28/17 Rocky Nelson MD [address] [place] [address] Specialty Warper Tender Cardiology 05/28/17 Cecil Thomas MD [address] [place] [address] Specialty Warper Tender Urology 05/28/17 Josefa Rolle APRN.OPERATOR TECHNICIAN [address] [place] [address] Wireless Consultant Internal Medicine 03/16/24 Evangelina Bah APRN.HOME HEALTH CLINICIAN [address] [place] [address] Wireless Consultant Internal Medicine 03/16/24 Kenneth Lin MD [address]00 [place] [address] Specialty Warper Tender Urology 05/15/24 Analytics Director Relationship Specialty Start Date End Date Johnnie Ross MD [address] [place] [address] PCP - General Internal Medicine 05/22/21 Trey Guzman MD [address] [facility] [address] [place] [address] Specialty Warper Tender Cardiology 05/28/17 Rocky Nelson MD [address] [address] Specialty Warper Tender Cardiology 05/28/17 Cecil Thomas MD 546 [facility] 210 [place] [address] Specialty Warper Tender Urology 05/28/17 Josefa Rolle, CLOTH WASHER OPERATOR.OPERATOR TECHNICIAN [address] [place] [address] Wireless Consultant Internal Medicine 03/16/24 Evangelina Bah, CLOTH WASHER OPERATOR.HOME HEALTH CLINICIAN [address] [place] [address] [facility] Internal Medicine 03/16/24 Kenneth Lin MD [address] [place] [place], [place] [address] Specialty Warper Tender Urology 05/15/24 Analytics Director Relationship Specialty Start Date End Date Johnnie Ross MD [address] [place] [address] PCP - General Internal Medicine 05/22/21 Trey Guzman MD [address] [facility] 225 [place] [address] Specialty Warper Tender Cardiology 05/28/17 Rocky Nelson MD [address] [address] Specialty Warper Tender Cardiology 05/28/17 Cecil Thomas MD 546 [facility] [address] [place] [address] Specialty Warper Tender Urology 05/28/17 Josefa Rolle, CLOTH WASHER OPERATOR.OPERATOR TECHNICIAN [address] [place] [address] Wireless Consultant Internal Medicine 03/16/24 Evangelina Bah CLOTH WASHER OPERATOR.HOME HEALTH CLINICIAN [address] [place] [address] [facility] Internal Medicine 03/16/24 Kenneth Lin MD 9500 [place] [address] Specialty Warper Tender Urology 05/15/24 Analytics Director Relationship Specialty Start Date End Date Johnnie Ross MD [address]40 [place] [address] PCP - General Internal Medicine 05/22/21 Trey Guzman MD [address] [facility] [address] [place] [address] Specialty Warper Tender Cardiology 05/28/17 Rocky Nelson MD 1761 [facility] [address] [place] [address] Specialty Warper Tender Cardiology 05/28/17 Cecil Thomas MD 546 [facility] 210 [place] [address] Specialty Warper Tender Urology 05/28/17 Josefa Rolle, GENEVIEVE.OPERATOR TECHNICIAN [address] [place] [address] Wireless Consultant Internal Medicine 03/16/24 Evangelina Bah, CLOTH WASHER OPERATOR.HOME HEALTH CLINICIAN [address] [place] [address] Wireless Consultant Internal Medicine 03/16/24 Kenneth Lin MD [address] [place], [place] [address] Specialty Warper Tender Urology 05/15/24 Analytics Director Relationship Specialty Start Date End Date Johnnie Ross MD [address] [place] [address] PCP - General Internal Medicine 05/22/21 Trey Guzman MD [address] [facility] 225 [place] [address] Specialty Warper Tender Cardiology 05/28/17 [place] [address] [place] [address] [address] [place] [address] Specialty Warper Tender Cardiology 05/28/17 Cecil Thomas MD 546 [facility] 210 [place] [address] Specialty Warper Tender Urology 05/28/17 Josefa Rolle, GENEVIEVE.OPERATOR TECHNICIAN [address] [place] [address] [facility] Internal Medicine 03/16/24 Evangelina Bah CLOTH WASHER OPERATOR.HOME HEALTH CLINICIAN [address] [place] [address] [facility] Internal Medicine 03/16/24 Kenneth Lin MD [address]00 [facility] [place], [place] [id number] Specialty Warper Tender Urology 05/15/24 Analytics Director Relationship Specialty Start Date End Date Johnnie Ross MD [address] [place] [address] PCP - General Internal Medicine 05/22/21 Trey Guzman MD 224 [facility] [address] [place] [phone] Specialty Warper Tender Cardiology 05/28/17 [place] [address] [place] [address] Specialty Warper Tender Cardiology 05/28/17 Cecil Thomas MD 546 [facility] [address] [place] [address] Specialty Warper Tender Urology 05/28/17 Josefa Rolle APRN.OPERATOR TECHNICIAN [address] [place] [address] Wireless Consultant Internal Medicine 03/16/24 Evangelina Bah CLOTH WASHER OPERATOR.HOME HEALTH CLINICIAN [address] [place] [address] Wireless Consultant Internal Medicine 03/16/24 06/26/24 Kenneth Lin MD [address] [place], [place] [id number] Specialty Warper Tender Urology 05/15/24 Evangelina Bah, CLOTH WASHER OPERATOR.HOME HEALTH CLINICIAN [address] [place] [address] Wireless Consultant Internal Medicine 06/30/24 Analytics Director Relationship Specialty Start Date End Date Johnnie Ross MD [address] [place] [address] PCP - General Internal Medicine 05/22/21 Trey Guzman MD [address] [place] [address] [place] [address] Specialty Warper Tender Cardiology 05/28/17 [place] [address] [place] [address] [address] [place] [address] Specialty Warper Tender Cardiology 05/28/17 Cecil Thomas MD 546 [facility] [address] [place] [address] Specialty Warper Tender Urology 05/28/17 Josefa Rolle, CLOTH WASHER OPERATOR.OPERATOR TECHNICIAN [address] [place] [address] Wireless Consultant Internal Medicine 03/16/24 Kenneth Lin MD [address] [facility] [place] [address] Specialty Warper Tender Urology 05/15/24 Evangelina Bah, CLOTH WASHER OPERATOR.HOME HEALTH CLINICIAN [address] [place] [address] Wireless Consultant Internal Medicine 06/30/24 Analytics Director Relationship Specialty Start Date End Date Johnnie Ross MD [address] [place] [address] PCP - General Internal Medicine 05/22/21 Trey Guzman MD [address] [place] [address] [place] [phone] (Fax) Specialty Warper Tender Cardiology 05/28/17 Rocky Nelson MD 1761 [facility] [address] [place] [address] Specialty Warper Tender Cardiology 05/28/17 Cecil Thomas MD 546 [facility] [address] [place] [address] Specialty Warper Tender Urology 05/28/17 Josefa Rolle APRN.OPERATOR TECHNICIAN [address] [place] [address] Wireless Consultant Internal Medicine 03/16/24 Kenneth Lin MD [address] [place], [place] [id number] Specialty Warper Tender Urology 05/15/24 Evangelina Bah CLOTH WASHER OPERATOR.HOME HEALTH CLINICIAN [address] [place] [address] Wireless Consultant Internal Medicine 06/30/24 Analytics Director Relationship Specialty Start Date End Date Johnnie Ross MD [address] [place] [address] PCP - General Internal Medicine 05/22/21 Trey Guzman MD [address] [place] [address] (Fax) Specialty Warper Tender Cardiology 05/28/17 Rocky Nelson MD 1761 [facility] [address] [place] [address] Specialty Warper Tender Cardiology 05/28/17 Cecil Thomas MD 546 [facility] [address] [place], [place] [address] Specialty Warper Tender Urology 05/28/17 Josefa Rolle, GENEVIEVE.OPERATOR TECHNICIAN [address] [place] [address] Wireless Consultant Internal Medicine 03/16/24 Kenneth Lin MD [address] [place], [place] [id number] Specialty Warper Tender Urology 05/15/24 Evangelina Bah APRN.HOME HEALTH CLINICIAN [address] [place] [address] Wireless Consultant Internal Medicine 06/30/24 Analytics Director Relationship Specialty Start Date End Date Johnnie Ross MD [address] [place] [address] PCP - General Internal Medicine 05/22/21 Trey Guzman MD [address] [facility] [address] [place] [address] Specialty Warper Tender Cardiology 05/28/17 Rocky Nelson MD 1761 [facility] [address] [place] [address] Specialty Warper Tender Cardiology 05/28/17 Cecil Thomas MD 546 [facility] [address] [place] [address] Specialty Warper Tender Urology 05/28/17 Josefa Rolle, CLOTH WASHER OPERATOR.OPERATOR TECHNICIAN [address] [place] [address] Wireless Consultant Internal Medicine 03/16/24 08/25/24 Kenneth Lin MD [address] [place], [place] [address] Specialty Warper Tender Urology 05/15/24 Evangeilna Bah APRN.HOME HEALTH CLINICIAN [address] [place] [address] [facility] Internal Medicine 06/30/24 Analytics Director Relationship Specialty Start Date End Date Johnnie Ross MD [address] [place] [address] PCP - General Internal Medicine 05/22/21 Trey Guzman MD 224 [facility] [address] [place] [address] Specialty Warper Tender Cardiology 05/28/17 [place] [address] [place] [address] [address] [place] [address] Specialty Warper Tender Cardiology 05/28/17 Cecil Thomas MD 546 [facility] [address] [place] [address] Specialty Warper Tender Urology 05/28/17 Kenneth Lin MD [address] [place], [place] [id number] Specialty Warper Tender Urology 05/15/24 Evangelina Bah APRN.HOME HEALTH CLINICIAN [address] [place] [address] Wireless Consultant Internal Medicine 06/30/24 Josefa Rolle APRN.OPERATOR TECHNICIAN [address] [place] [address] Wireless Consultant Internal Medicine 08/26/24 Analytics Director Relationship Specialty Start Date End Date Johnnie Ross MD [address] [place] [address] PCP - General Internal Medicine 05/22/21 Trey Guzman MD [address] [facility] [address] [place] [address] Specialty Warper Tender Cardiology 05/28/17 Rocky Nelson MD [address]61 [facility] [address] [place] [address] Specialty Warper Tender Cardiology 05/28/17 Cecil Thomas MD 546 [facility] [address] [place] [address] Specialty Warper Tender Urology 05/28/17 Josefa Rolle, CLOTH WASHER OPERATOR.OPERATOR TECHNICIAN [address] [place] [address] Wireless Consultant Internal Medicine 03/16/24 08/25/24 Kenneth Lin MD [address] [place] [address] Specialty Warper Tender Urology 05/15/24 Evangelina Bah CLOTH WASHER OPERATOR.HOME HEALTH CLINICIAN [address] [place] [address] Wireless Consultant Internal Medicine 06/30/24 Josefa Rolle, CLOTH WASHER OPERATOR.OPERATOR TECHNICIAN [address] [place] [address] Wireless Consultant Internal Medicine 08/26/24 Analytics Director Relationship Specialty Start Date End Date Johnnie Ross MD [address] [place] [address] PCP - General Internal Medicine 05/22/21 Trey Guzman MD 224 [facility] [address] [place] [phone] Specialty Warper Tender Cardiology 05/28/17 Rocky Nelson MD [address] [place] [address] Specialty Warper Tender Cardiology 05/28/17 eCcil Thomas MD 546 [facility] [address] [place] [address] Specialty Warper Tender Urology 05/28/17 Kenneth Lin MD [address] [place], [place] [address] Specialty Warper Tender Urology 05/15/24 Evangelina Bah, CLOTH WASHER OPERATOR.HOME HEALTH CLINICIAN [address] [place] [address] Wireless Consultant Internal Medicine 06/30/24 Josefa Rolle, CLOTH WASHER OPERATOR.OPERATOR TECHNICIAN [address] [place] [address] Wireless Consultant Internal Medicine 08/26/24 Analytics Director Relationship Specialty Start Date End Date Johnnie Ross MD [address] [place] [address] PCP - General Internal Medicine 05/22/21 Trey Guzman MD [address] [facility] [address] [place] [phone] (Fax) Specialty Warper Tender Cardiology 05/28/17 Rocky Nelson MD [address] [address] Specialty Warper Tender Cardiology 05/28/17 Cecil Thomas MD 546 [facility] [address] [place] [address] Specialty Warper Tender Urology 05/28/17 Kenneth Lin MD [address] [place], [place] [phone] Specialty Warper Tender Urology 05/15/24 Evangelina Bah, CLOTH WASHER OPERATOR.HOME HEALTH CLINICIAN [address] [place] [address] Wireless Consultant Internal Medicine 06/30/24 Josefa Rolle, GENEVIEVE.OPERATOR TECHNICIAN [address] [place] [address] Wireless Consultant Internal Medicine 08/26/24 Analytics Director Relationship Specialty Start Date End Date Johnnie Ross MD [address] [place] [address] PCP - General Internal Medicine 05/22/21 Trey Guzman MD [address] [facility] [address] [place] [address] Specialty Warper Tender Cardiology 05/28/17 Rocky Nelson MD [address] [address] Specialty Warper Tender Cardiology 05/28/17 Evangelina Bah APRN.HOME HEALTH CLINICIAN [address] [place] [address] Wireless Consultant Internal Medicine 06/30/24 Josefa Rolle APRN.OPERATOR TECHNICIAN [address] [place] [address] [facility] Internal Medicine 08/26/24 Araceli Laura MD [address] [place], [place] [phone] Specialty Warper Tender Urology 11/17/24 Analytics Director Relationship Specialty Start Date End Date Johnnie Ross MD [address] [place] [address] PCP - General Internal Medicine 05/22/21 Trey Guzman MD [address] [address] Specialty Warper Tender Cardiology 05/28/17 Rocky Nelson MD [address] [address] Specialty Warper Tender Cardiology 05/28/17 Evangelina Bah APRN.HOME HEALTH CLINICIAN [address] [place] [address] [facility] Internal Medicine 06/30/24 Josefa Rolle APRN.OPERATOR TECHNICIAN [address] [place] [address] [facility] Internal Medicine 08/26/24 Araceli Laura MD [address] [place] [address] Specialty Warper Tender Urology 11/17/24 Analytics Director Relationship Specialty Start Date End Date Johnnie Ross MD [address] [place] [address] PCP - General Internal Medicine 05/22/21 Trey Guzman MD [address] [place] [address] [place] [phone] Specialty Warper Tender Cardiology 05/28/17 Rocky Nelson MD [address] [address] Specialty Warper Tender Cardiology 05/28/17 Evangelina Bah CLOTH WASHER OPERATOR.HOME HEALTH CLINICIAN [address] [place] [address] Wireless Consultant Internal Medicine 06/30/24 Josefa Rolle APRN.OPERATOR TECHNICIAN [address] [place] [address] Wireless Consultant Internal Medicine 08/26/24 Araceli Laura MD [address] [place] [address] Specialty Warper Tender Urology 11/17/24 Analytics Director Relationship Specialty Start Date End Date Johnnie Ross MD [address] [place] [address] PCP - General Internal Medicine 05/22/21 Trey Guzman MD [address] [place] [address] [place] [phone] Specialty Warper Tender Cardiology 05/28/17 Rocky Nelson MD [address] [address] Specialty Warper Tender Cardiology 05/28/17 Evangelina Bah APRN.HOME HEALTH CLINICIAN [address] [place] [address] Wireless Consultant Internal Medicine 06/30/24 Josefa Rolle APRN.OPERATOR TECHNICIAN [address] [place] [address] [facility] Internal Medicine 08/26/24 Araceli Laura MD [address] [place], [place] [address] Specialty Warper Tender Urology 11/17/24 Analytics Director Relationship Specialty Start Date End Date Johnnie Ross MD [address] [place], [place] [address] PCP - General Internal Medicine 05/22/21 Trey Guzman MD [address] [facility] [address] [place] [address] Specialty Warper Tender Cardiology 05/28/17 Rocky Nelson MD [address] [address] Specialty Warper Tender Cardiology 05/28/17 Evangelina Bah APRN.HOME HEALTH CLINICIAN [address] [place] [address] [facility] Internal Medicine 06/30/24 Josefa Rolle APRN.OPERATOR TECHNICIAN [address] [place] [address] Wireless Consultant Internal Medicine 08/26/24 Araceli Laura MD [address] [place] [address] Specialty Warper Tender Urology 11/17/24 Analytics Director Relationship Specialty Start Date End Date Johnnie Ross MD [address] [place] [address] PCP - General Internal Medicine 05/22/21 Trey Guzman MD 224 [facility] [address] [place] [phone] Specialty Warper Tender Cardiology 05/28/17 [place] [address] [place] [address] [address] [place] [address] Specialty Warper Tender Cardiology 05/28/17 Cecil Thomas MD 546 [facility] [address] [place] [address] Specialty Warper Tender Urology 05/28/17 11/16/24 Kenneth Lin MD [address] [place] [address] Specialty Warper Tender Urology 05/15/24 11/16/24 Evangelina Bah CLOTH WASHER OPERATOR.HOME HEALTH CLINICIAN [address] [place] [address] Wireless Consultant Internal Medicine 06/30/24 Josefa Rolle APRN.OPERATOR TECHNICIAN [address] [place] [address] [facility] Internal Medicine 08/26/24 Team Status: Active Member Role/Relationship Status Dates Dr. Johnnie Ross MD Primary care physician Active Team Status: Inactive Member Role/Relationship Status Dates Dr. Johnnie Ross MD Primary care physician Active Start: January 19, 2025 End: January 19, 2025 Dr. Johnnie Ross MD Referring Provider Active Start: January 19, 2025 End: January 19, 2025 Dr. [place] MD Attending physician Active Start: January 19, 2025 End: January 19, 2025 Goals (unrecognized section and content) Goals may be documented in a n alternate sectionGoals may be documented in an alternate section FOR RECORDS PERTAINING TO PATIENTS WHO ARE OR HAVE BEEN ENROLLED IN A CHEMICAL DEPENDENCY/SUBSTANCEABUSE PROGRAM, SOME INFORMATION MAY BE OMITTED. This clinical summary was aggregated from multiple sources. Caution should be exercised in using it in the provision of clinical care. This summary normalizes information from multiple sources, and as a consequence, information in this document may materially change the coding, format and clinical context of patient data. In addition, data may be omitted in some cases. CLINICAL DECISIONS SHOULD BE BASED ON THE PRIMARY CLINICAL RECORDS. [employer] provides no warranty or guarantee of the accuracy or completeness of information in this document.
== END | disposition home or self-care (01) ==
LOC: LABSPEC 12:17
PROVIDERS: PCP Internal Medicine; Referring Provider Otolaryngology Otolaryngology/Facial Plastic Surgery; Visit Provider Otolaryngology Otolaryngology/Facial Plastic Surgery
DX: J02.9 Acute pharyngitis, unspecified (principal)
CPT/HCPCS: 87070